=== PATIENT | female | born 1945 | race Caucasian/White ===

== ENCOUNTER 2017-06-19 09:15 | Day surgery (SDC) | payer OTHER ==
[~2017-06-19] VITALS: Ht 160 cm; Wt 59.9 kg
[2017-06-19] MEDS ORDERED: TRAZODONE HCL50 MG PO (09:44)
[2017-06-19] MEDS ORDERED: METOPROLOL SUCC25 MG PO (09:44)
[2017-06-19] MEDS ORDERED: PREMARIN30 GM PV (09:45)
[2017-06-19] MEDS ORDERED: DIPHENOXYLATE-1 EACH PO (09:46)
== END 2017-06-19 11:05 | disposition home or self-care (01) ==
LOC: OPS 09:15 → DS 09:15 → OPS 10:15
PROVIDERS: Ophthalmology
PROC: 08RK3JZ Replacement of Left Lens with Synthetic Substitute, Percutaneous Approach (ICD-10-PCS; principal; 2017-06-19 10:15)
DX: H25.12 Age-related nuclear cataract, left eye (principal); K21.9 Gastro-esophageal reflux disease without esophagitis; M19.90 Unspecified osteoarthritis, unspecified site; Z87.891 Personal history of nicotine dependence; Z79.899 Other long term (current) drug therapy
CPT/HCPCS: 00140; J2250

== ENCOUNTER 2018-11-06 11:59 | Emergency (ER) | payer MEDICARE ==
[~2018-11-06] VITALS: Ht 160 cm; Wt 49.4 kg
--- OUTSIDE RECORDS SUMMARY | ~2018-11-06 | XMS | Encounter Summary ---
Demographics + + + | Address | [address] | | | [place] [address] | + + + | Home Phone | | + + + | Preferred Language | Unknown | + + + | Marital Status | | + + + | Sikh Affiliation | NRP | + + + | Race | White | + + + | Ethnic Group | Not or | + + + Author + + + | Author | [facility] | + + + | Organization | [facility] | + + + | Address | Unknown | + + + | Phone | Unavailable | + + + Support + + + + + | Name | Relationship | Address | Phone | + + + + + | ELSA GOODE | ECON | [address] | | | | | [place] [address] | | + + + + + Care Team Providers + +------+ + | Care Hematology Specialist Name | Role | Phone | + +------+ + | Piotr Plummer MD | PCP | | + +------+ + Reason for Visit + + + | Reason | Comments | + + + | Symptom Management | | + + + Encounter Details +--------+--------+ + + + | Date | Type | Department | Care Team | Description | +--------+--------+ + + + | 09/04/ | Refill | Hematology/Medical | Toni Mccrary, | Symptom Management | | 2019 | | Oncology at [place] | ,PhD [address] | | | | | for Health & Healing | [address] [facility] [place] | | | | | [address] | [address] | | | | | Mailcode: [place] | [phone] | | | | | for Health and | | | | | | Healing, [address] | | | | | | [place], [place] | | | | | | [address] | | | | | | [phone] | | | +--------+--------+ + + + Social History + + [...] | +--------+ + + + + | 11/14/ | Appointment | Hematology & | Moustapha Sher | | | 2019 | | Oncology | [address] | | | | | | [place] [address] | | +--------+ + + + + | 11/14/ | Office | Hematology & | Taz Mcneal, | | | 2018 | Visit | Oncology | PA-C [address] | | | | | | [address] | | | | | | [facility] [place] | | | | | | [address] | | | | | | [phone] | | | | | | | | +--------+ + + + + | 11/14/ | Appointment | Hematology & | B/C, Pod [address] | | | 2019 | | Oncology | [place] | | | | | | [place] [address] | | +--------+ + + + + | 11/28/ | Clinical | | | | | 2018 | Support | | | | | [...] [place] | | | | | | [address] | | | | | | [phone] | | | | | | | | +--------+ + + + + | 11/28/ | Appointment | Hematology & | B/C, Pod [address] | | | 2018 | | Oncology | [place], | | | | | | [place] [address] | | +--------+ + + + + [...] Rd | | | | | | [place], [place] | | | | | | [address] | | | | | | [phone] | | | | | | | | +--------+ + + + + | 12/12/ | Appointment | Hematology & | B/C, Pod [address] | | | 2019 | | Oncology | [place], | | | | | | [place] [address] | | +--------+ + + + + as of this encounter Visit Diagnoses + + | Diagnosis | + + | Pancreatic adenocarcinoma (HCC) - Primary | + + | Malignant neoplasm of pancreas, part unspecified | + + | Liver metastases (HCC) | + + | Secondary malignant neoplasm of liver | + + | Gastroesophageal reflux disease, esophagitis presence not specified | + +"
--- OUTSIDE RECORDS SUMMARY | ~2018-11-06 | XMS | Encounter Summary ---
Demographics + + + | Address | [address] | | | [place] [address] | + + + | Home Phone | | + + + | Preferred Language | Unknown | + + + | Marital Status | | + + + | Congregation Affiliation | NRP | + + + | Race | White | + + + | Ethnic Group | Not or | + + + Author + + + | Author | [facility] | + + + | Organization | [facility] | + + + | Address | Unknown | + + + | Phone | Unavailable | + + + Support + + + + + | Name | Relationship | Address | Phone | + + + + + | ELSA GOODE | ECON | [address] | | | | | [place] [address] | | + + + + + Care Team Providers + +------+ + | Care Roller Operator Name | Role | Phone | + +------+ + | Piotr Plummer MD | PCP | | + +------+ + Reason for Visit + + + | Reason | Comments | + + + | Follow-up visit | | + + + | CME - cystoid | | | macular edema | | + + + Benefits Check (Routine) + +--------+ + + + + | Status | Reason | Specialty | Diagnoses / | Referred By | Referred To | | | | | Procedures | Contact | Contact | + +--------+ + + + + | Authorized | | Ophthalmology | | Non-[facility] | Susana, | | | | | | Epic Dept | MD Nunu | | | | | | | [address] | | | | | | | [address] | | | | | | | [place] | | | | | | | [place], [place] | | | | | | | [address] | | | | | | | Phone: | | | | | | | [phone] | | | | | | | Fax: | | | | | | | [phone] | + +--------+ + + + + Encounter Details +--------+---------+ + + + | Date | Type | Department | Care Team | Description | +--------+---------+ + + + | 09/11/ | Office | [facility] | Nunu Nugent, | Subjective visual | | 2019 | Visit | [facility] | [address] | disturbance (Primary | | | | Jasiel Baker [address] | Dx); Cystoid | | | | [address] | [facility] [place] | macular edema, left | | | | Mailcode: [facility] | [address] | eye | | | | [place], [place] | [phone] | | | | | [address] | | | | | | [phone] | | | +--------+---------+ + + + Social History + + [...] + + + as of this encounter Instructions Patient Instructions - Nunu Nugent MD - 09/11/2018 8:15 AM PSTMigraine Some people experience flashes of light that appear as jagged lines or "heat waves" in both eyes, often lasting 10 to 20 minutes. These types of flashes are usually caused by a spasm of blood vessels in the brain, which is called a migraine. If a headache follows the flashes , it is called a migraine headache. However, jagged lines or heat waves can occur without a headache. In this case, the light flashes are called ophthalmic migraine, or migraine withou t headache. Contact your material dispatcher if you experience these symptoms. in this encounter Progress Notes Wilfrid Cummins MD - 09/11/2018 8:15 AM PSTFormatting of this note may be different from guillermina posadas original. [facility] Progress Note 09/11/2018 72 y.o. female Subjective visual disturbance - 2-week history of peripheral bilateral (occasionally unilaterally) pixelated/scintillatin g perception intermittently. - No evidence of RD/RT on examination - Recent diagnosis and undergoing chemo for Pancreatic Cancer. 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 Chief Complaint: Follow-up visit CME - cystoid macular edema HPI (Edited by physician): Pt. C/o having pixilated crescents peripherally in her vision. The episodes last about 10 minutes. No DE PAZ or H/o migraines. Vision overall seems stable. She was recently diagnosed with pancreatic cancer at the end of last year and currently on chemotherapy. Diagnosed on CT scan 06/2018. Now on week off of chemo between rounds (into 3 weeks). Current Outpatient Prescriptions (Other) Medication Sig acetaminophen Take 500 mg by mouth every six hours as needed. apixaban Take 2 tablets by mouth twice daily for 7 days then take 1 tablet by mouth twi ce daily. docusate sodium Take 1 capsule by mouth two times daily. (Patient taking differently: T adina 100 mg by mouth twice daily as needed. ) Fish Oil-[place]-3 Fatty Acids Take 1 capsule by mouth once daily. ibuprofen Take 400 mg by mouth every six hours as needed. lidocaine-prilocaine Apply a thick layer to intact skin and cover with an occlusive celina ssing. loperamide Take 2 caps initially then 1 cap every 2 hours until diarrhea free for 12 ho urs as needed. LORazepam Take 0.5-1 tablets by mouth every six hours as needed (second line for nausea or for sleep). metoprolol succinate Take 1 tablet (25 mg) by mouth every morning and 2 tablets (50 mg) by mouth every evening multivitamin Take 1 tablet by mouth once daily. nitroglycerin Place under tongue. omeprazole Take 1 capsule by mouth once daily. Administer 30 to 60 minutes before meals oxyCODONE (immediate release) Take 1-3 tablets by mouth every four hours as needed for severe pain. prochlorperazine Take 0.5-1 tablets by mouth every six hours as needed for nausea/vomit ing. Max dose: 40 mg/day traZODone Take 1 tablet by mouth at bedtime as needed Reviewed: Tobacco | Allergies | Meds | Problems | Med Hx | Surg Hx | Fam Hx | Soc Hx Examination: See Ophthalmology Module Attestations: The radiologic technician, under the supervision of the physician, is responsible for performing the f ollowing sections: RFV, ROS, PMH, PSH, SocHx, FH, Med list, Base Ophth Exam. The attending physician is responsible for the entire content of the note and has personall y performed the HPI and the physical examination NUNU NUGENT MD in this encounter Plan of Treatment +--------+ + + + + | Date | Type | Specialty | Care Team | Description | +--------+ + + + + | 11/14/ | Appointment | Hematology & | Rn, Fast Track | | | 2018 | | Oncology | [address] [facility] | | | | | | [place] [address] | | +--------+ + + + + | 11/14/ | Office | Hematology & | Taz Mcneal, | | | 2018 | Visit | Oncology | PA-Cindy [address] | | | | | | [address] | | | | | | [place], [place] | | | | | | [address] | | | | | | [phone] | | | | | | | | +--------+ + + + + | 11/14/ | Appointment | Hematology & | B/C, Pod [address] | | | 2018 | | Oncology | [place], | | | | | | [place] [address] | | +--------+ + + + + | 11/28/ | Clinical | | | | | 2019 | Support | | | | | | Staff | | | | +--------+ + + + + | 11/28/ | Office | Hematology & | Taz Mcneal, | | | 2018 | Visit | Oncology | PA-C [address] | | | | | | [address] | | | | | | [facility] [place] | | | | | | [address] | | | | | | [phone] | | | | | | | | +--------+ + + + + | 11/28/ | Appointment | Hematology & | B/C, Pod [address] | | | 2019 | | Oncology | [place], | | | | | | [place] [address] | | +--------+ + + + + | 12/12/ | Clinical | | | | | 2018 | Support | | | | | | Staff | | | | +--------+ + + + + | 12/12/ | Office | Hematology & | Taz Mcneal, | | | 2018 | Visit | Oncology | [place] [address] | | | | | | [address] | | | | | | [place], [place] | | | | | | [address] | | | | | | [phone] | | | | | | | | +--------+ + + + + | 12/12/ | Appointment | Hematology & | B/C, Pod [address] | | | 2018 | | Oncology | [place], | | | | | | [place] [address] | | +--------+ + + + + as of this encounter Procedures + +--------+ + + + | Procedure Name | Priori | Date/Time | Associated Diagnosis | Comments | | | ty | | | | + +--------+ + + + | OCT, RETINA | Routin | 09/11/2018 | Cystoid macular | Results for this | | | e | 8:27 AM | edema, left eye | procedure are in the | | | | PST | | results section. | + +--------+ + + + in this encounter Results OCT, RETINA (09/11/2018 8:27 AM) + + + | Narrative | Performed At | + + + | Telephoner | [facility] | | DocumentationRight EyeQuality: good Central macular | [facility] | | thickness: 282 Segmentation: accurate Left EyeQuality: | | | good Central macular thickness: 294 Segmentation: accurate | | | Provider DocumentationRight EyeRetinal findings: epiretinal | | | membrane Left EyeRetinal findings: epiretinal membrane | | | NotesOD: increased ERM over fovea, posterior hyaloid off the ERM. No | | | fluid.OS: increased ERM over fovea. Mild irregular inner retinal | | | contour. No fluid. | | |Quality: good | | | | | |Central macular thickness: 294 | | |Segmentation: accurate | | | | | | | | |Provider Documentation | | |Right Eye | | |Retinal findings: epiretinal membrane | | | | | | | | |Left Eye | | |Retinal findings: epiretinal membrane | | | | | | | | |Notes | | |OD: increased ERM over fovea, posterior hyaloid off the ERM. No fluid. | | |OS: increased ERM over fovea. Mild irregular inner retinal contour. No | | |fluid. | | + + + + + + + + | Performing | Address | City/State/Zipcode | Phone Number | | Organization | | | | + + + + + | [facility] | [address] | [place] [address] | | | [facility] | [place]. | | | + + + + + in this encounter Visit Diagnoses + + | Diagnosis | + + | Subjective visual disturbance - Primary | + + | Subjective visual disturbance, unspecified | + + | Cystoid macular edema, left eye | + + | Cystoid macular degeneration of retina | + +
--- OUTSIDE RECORDS SUMMARY | ~2018-11-06 | XMS | Encounter Summary ---
Demographics + + + | Address | [address] | | | [place] [address] | + + + | Home Phone | | + + + | Preferred Language | Unknown | + + + | Marital Status | | + + + | Scientologist Affiliation | NRP | + + + | Race | White | + + + | Ethnic Group | Not or | + + + Author + + + | Author | [facility] | + + + | Organization | [facility] | + + + | Address | Unknown | + + + | Phone | Unavailable | + + + Support + + + + + | Name | Relationship | Address | Phone | + + + + + | ELSA GOODE | ECON | [address] | | | | | [place] [address] | | + + + + + Care Team Providers + +------+ + | Care Clinical Technologist Name | Role | Phone | + +------+ + | Piotr Plummer MD | PCP | | + +------+ + Reason for Visit + + + | Reason | Comments | + + + | Refill Request | apixaban 5 mg | + + + Encounter Details +--------+ + + + + | Date | Type | Department | Care Team | Description | +--------+ + + + + | 10/30/ | Telephone | Hematology/Medical | Toni Mccrary, | Refill Request | | 2019 | | [facility]cology at [place] | ,PhD [address] | (apixaban 5 mg) | | | | for Health & Healing | [address] [place], [place] | | | | | [address] | [address] | | | | | Mailcode: [place] | [phone] | | | | | for Health and | | | | | | Healing, [address] | | | | | | [place], [place] | | | | | | [address] | | | | | | [phone] | | | +--------+ + + + [...] 2019 | | Oncology | [address] | | | | | | [place] [address] | | +--------+ + + + + | 11/14/ | Office | Hematology & | Taz Mcneal, | | | 2018 | Visit | Oncology | PA-C [address] | | | | | | [address] | | | | | | [place], [place] | | | | | | [address] | | | | | | [phone] | | | | | | | | +--------+ + + + + | 11/14/ | Appointment | Hematology & | B/C, Pod [address] | | | 2019 | | Oncology | [place], | | | | | | [place] [address] | | +--------+ + + + + [...] Rd | | | | | | [place] | | | | | | [address] | | | | | | [phone] | | | | | | | | +--------+ + + + + | 11/28/ | Appointment | Hematology & | B/C, [address] | | | 2018 | | Oncology | [place] | | | | | | [place] [address] | | +--------+ + + + + | 12/12/ | Clinical | | | | | 2018 | Support | | | | | | Staff | | | | +--------+ + + + + | 12/12/ | Office | Hematology & | Taz Mcneal, | | | 2019 | Visit | Oncology | [place] [address] | | | | | | [address] | | | | | | [place] | | | | | | [address] | | | | | | [phone] | | | | | | | | +--------+ + + + + | 12/12/ | Appointment | Hematology & | B/C, [address] | | | 2019 | | Oncology | [place], | | | | | | [place] [address] | | +--------+ + + + + as of this encounter Visit Diagnoses Not on filein this encounter"
--- OUTSIDE RECORDS SUMMARY | ~2018-11-06 | XMS | Encounter Summary ---
Demographics + + + | Address | [address] | | | [place] [address] | + + + | Home Phone | | + + + | Preferred Language | Unknown | + + + | Marital Status | | + + + | Episcopalian Affiliation | NRP | + + + | Race | White | + + + | Ethnic Group | Not or | + + + Author + + + | Author | [facility] | + + + | Organization | [facility] | + + + | Address | Unknown | + + + | Phone | Unavailable | + + + Support + + + + + | Name | Relationship | Address | Phone | + + + + + | ELSA GOODE | ECON | [address] | | | | | [place] [address] | | + + + + + Care Team Providers + +------+ + | Care Breaker Table Worker Name | Role | Phone | + +------+ + | Piotr Plummer MD | PCP | | + +------+ + Reason for Visit + + + | Reason | Comments | + + + | Medical nutrition | | | therapy | | + + + Encounter Details +--------+ + + + + | Date | Type | Department | Care Team | Description | +--------+ + + + + | 09/05/ | Documentati | Hematology/Medical | Rosemarie Galan, ISRA | Medical nutrition | | 2019 | on | Oncology at [facility] | [address] | therapy | | | | [address] | [address] | | | | | Mailcode: Center | [place], [place] | | | | | [facility] and | [address] | | | | | Healing, [address] | | | | | | [place], [place] | | | | | | [address] | | | | | | [phone] | | | +--------+ + + + [...] Isra | | | | | | [place] [address] | | +--------+ + + + + | 11/14/ | Office | Hematology & | Taz Mcneal, | | | 2018 | Visit | Oncology | PA-C [address] | | | | | | [address] | | | | | | [place] | | | | | | [address] | | | | | | [phone] | | | | | | | | +--------+ + + + + | 11/14/ | Appointment | Hematology & | B/C, Pod [address] | | | 2019 | | Oncology | [place] | | | | | | [place] [address] | | +--------+ + + + + [...] [place] | | | | | | [address] | | | | | | [phone] | | | | | | | | +--------+ + + + + | 11/28/ | Appointment | Hematology & | B/C, [address] | | | 2018 | | Oncology | [place], | | | | | | [place] [address] | | +--------+ + + + + [...] [place] | | | | | | [address] | | | | | | [phone] | | | | | | | | +--------+ + + + + | 12/12/ | Appointment | Hematology & | B/C, [address] | | | 2019 | | Oncology | [place], | | | | | | [place] [address] | | +--------+ + + + + as of this encounter Visit Diagnoses Not on filein this encounter"
--- OUTSIDE RECORDS SUMMARY | ~2018-11-06 | XMS | Encounter Summary ---
Demographics + + + | Address | [address] | | | [place] [address] | + + + | Home Phone | | + + + | Preferred Language | Unknown | + + + | Marital Status | | + + + | Scientologist Affiliation | NRP | + + + | Race | White | + + + | Ethnic Group | Not or | + + + Author + + + | Author | [facility] | + + + | Organization | [facility] | + + + | Address | Unknown | + + + | Phone | Unavailable | + + + Support + + + + + | Name | Relationship | Address | Phone | + + + + + | ELSA GOODE | ECON | [address] | | | | | [place] [address] | | + + + + + Care Team Providers + +------+ + | Care Agricultural Consultant Name | Role | Phone | + +------+ + | Piotr Plummer MD | PCP | | + +------+ + Reason for Visit + + + | Reason | Comments | + + + | Appointment Question | Bio Stent | + + + Encounter Details +--------+ + + + + | Date | Type | Department | Care Team | Description | +--------+ + + + + | 10/25/ | Telephone | Hematology/Medical | Toni Mccrary, | Appointment Question | | 2019 | | Oncology at [facility] | ,PhD [address] | (Bio Stent ) | | | | [address] | [place], [place] | | | | | Mailcode: [place] | [address] | | | | | for Health and | [phone] | | | | | [facility] [address] | | | | | | [place], [place] | | | | | | [address] | | | | | | [phone] | | | +--------+ + + + [...] | 2019 | | Oncology | [address] | | | | | | [place] [address] | | +--------+ + + + + | 11/14/ | Office | Hematology & | Taz Mcneal, | | | 2018 | Visit | Oncology | PA-C [address] | | | | | | [address] | | | | | | [place] | | | | | | [address] | | | | | | [phone] | | | | | | | | +--------+ + + + + | 11/14/ | Appointment | Hematology & | B/C, [address] | | | 2019 | | Oncology | [place] | | | | | | [place] [address] | | +--------+ + + + + | 11/28/ | Clinical | | | | | 2019 | Support | | | | | | Staff | | | | +--------+ + + + + | 11/28/ | Office | Hematology & | Taz Mcneal, | | | 2018 | Visit | Oncology | PA-Cindy [address] [facility] | | | | | | [address] | | | | | | [place] | | | | | | [address] | | | | | | [phone] | | | | | | | | +--------+ + + + + | 11/28/ | Appointment | Hematology & | B/C, [address] | | | 2018 | | Oncology | [place] | | | | | | [place] [address] | | +--------+ + + + + | 12/12/ | Clinical | | | | | 2018 | Support | | | | | | Staff | | | | +--------+ + + + + | 12/12/ | Office | Hematology & | Taz Mcneal, | | | 2019 | Visit | Oncology | [place] [address] [facility] | | | | | | [address] | | | | | | [place] | | | | | | [address] | | | | | | [phone] | | | | | | | | +--------+ + + + + | 12/12/ | Appointment | Hematology & | B/C, [address] | | | 2019 | | Oncology | [place], | | | | | | [place] [address] | | +--------+ + + + + as of this encounter Visit Diagnoses Not on filein this encounter"
--- OUTSIDE RECORDS SUMMARY | ~2018-11-06 | XMS | Encounter Summary ---
Demographics + + + | Address | [address] | | | [place] [address] | + + + | Home Phone | | + + + | Preferred Language | Unknown | + + + | Marital Status | | + + + | Synagogue Affiliation | NRP | + + + | Race | White | + + + | Ethnic Group | Not or | + + + Author + + + | Author | [facility] | + + + | Organization | [facility] | + + + | Address | Unknown | + + + | Phone | Unavailable | + + + Support + + + + + | Name | Relationship | Address | Phone | + + + + + | ELSA GOODE | ECON | [address] | | | | | [place] [address] | | + + + + + Care Team Providers + +------+ + | Care Mental Retardation Aide Name | Role | Phone | + +------+ + | Piotr Plummer MD | PCP | | + +------+ + Reason for Visit + + + | Reason | Comments | + + + | Patient education | Chacha pereira | + + + Encounter Details +--------+ + + + + | Date | Type | Department | Care Team | Description | +--------+ + + + + | 08/21/ | Documentati | Hematology/Medical | Toni Mccrary, | Patient education | | 2019 | on | Oncology at [place] | ,PhD [address] | (gemcitabine, | | | | for Health & Healing | [address] [place], [place] | Abraxane) | | | | [address] | [address] | | | | | Mailcode: [place] | [phone] | | | | | for Health and | | | | | | Healing, [address] | | | | | | [place], [place] | | | | | | [address] | | | | | | [phone] | | | +--------+ + + + [...] [address] | | | | | | [place] [address] | | +--------+ + + + + | 11/14/ | Office | Hematology & | Taz Mcneal, | | | 2018 | Visit | Oncology | PA-C [address] | | | | | | [address] | | | | | | [place] | | | | | | [address] | | | | | | [phone] | | | | | | | | +--------+ + + + + | 11/14/ | Appointment | Hematology & | B/C, [address] | | | 2019 | | Oncology | [place] | | | | | | [place] [address] | | +--------+ + + + + | 11/28/ | Clinical | | | | | 2019 | Support | | | | | | Staff | | | | +--------+ + + + + | 11/28/ | Office | Hematology & | Taz Mcneal, | | | 2018 | Visit | Oncology | PA-C [address] [facility] | | | | | | [address] | | | | | | [place] | | | | | | [address] | | | | | | [phone] | | | | | | | | +--------+ + + + + | 11/28/ | Appointment | Hematology & | B/C, [address] | | | 2019 | | Oncology | [place] | | | | | | [place] [address] | | +--------+ + + + + | 12/12/ | Clinical | | | | | 2019 | Support | | | | | | Staff | | | | +--------+ + + + + | 12/12/ | Office | Hematology & | Taz Mcneal, | | | 2018 | Visit | Oncology | [place] [address] | | | | | | [address] | | | | | | [place] | | | | | | [address] | | | | | | [phone] | | | | | | | | +--------+ + + + + | 12/12/ | Appointment | Hematology & | B/C, [address] | | | 2018 | | Oncology | [place] | | | | | | [place] [address] | | +--------+ + + + + as of this encounter Visit Diagnoses Not on filein this encounter"
--- OUTSIDE RECORDS SUMMARY | ~2018-11-06 | XMS | Encounter Summary ---
Demographics + + + | Address | [address] | | | [place] [address] | + + + | Home Phone | | + + + | Preferred Language | Unknown | + + + | Marital Status | | + + + | Mormon Affiliation | NRP | + + + | Race | White | + + + | Ethnic Group | Not or | + + + Author + + + | Author | [facility] | + + + | Organization | [facility] | + + + | Address | Unknown | + + + | Phone | Unavailable | + + + Support + + + + + | Name | Relationship | Address | Phone | + + + + + | ELSA GOODE | ECON | [address] | | | | | [place] [address] | | + + + + + Care Team Providers + +------+ + | Care Rrts Name | Role | Phone | + [...] | | 2019 | | [facility] [place] | ,PhD [address] | | | | | for Health & Healing | [address] [facility] [place] | | | | | [address] | [address] | | | | | Mailcode: [place] | [phone] | | | | | for Health and | | | | | | Healing, [address] | | | | | | [place], [place] | | | | | | [address] | | | | | | [phone] | | | +--------+--------+ + + + [...] Isra | | | | | | [place] [address] | | +--------+ + + + + | 11/14/ | Office | Hematology & | Taz Mcneal, | | | 2018 | Visit | Oncology | PA-C [address] | | | | | | [address] | | | | | | [facility] [place] | | | | | | [address] | | | | | | [phone] | | | | | | | | +--------+ + + + + | 11/14/ | Appointment | Hematology & | B/C, Pod [address] | | | 2019 | | Oncology | [place] | | | | | | [place] [address] | | +--------+ + + + + [...] [place] | | | | | | [address] | | | | | | [phone] | | | | | | | | +--------+ + + + + | 11/28/ | Appointment | Hematology & | B/C, [address] | | | 2018 | | Oncology | [place], | | | | | | [place] [address] | | +--------+ + + + + [...] Rd | | | | | | [place], [place] | | | | | | [address] | | | | | | [phone] | | | | | | | | +--------+ + + + + | 12/12/ | Appointment | Hematology & | B/C, [address] | | | 2019 | | Oncology | [place], | | | | | | [place] [address] | | +--------+ + + + + [...]
--- OUTSIDE RECORDS SUMMARY | ~2018-11-06 | XMS | Encounter Summary ---
Demographics + + + | Address | [address] | | | [place] [address] | + + + | Home Phone [...] | | | | | [place] [address] | | + + + + + Care Team Providers + +------+ + | Care Cell Assembly Pinner Name | Role | Phone | + +------+ + | Piotr Plummer MD | PCP | | + +------+ + Encounter Details +--------+ + + + + | Date | Type | Department | Care Team | Description | +--------+ + + + + | 09/25/ | [employer] Architect | Hematology/Medical | Toni Mccrary, | | | 2019 | | [facility] [place] | ,PhD [address] | | | | | for Health & Healing | [place], [place] | | | | | [address] | [address] | | | | | Mailcode: [place] | [phone] | | | | | for Health and | | | | | | Healing, [address] | | | | | | [place], [place] | | | | | | [address] | | | | | | [phone] | | | +--------+ + + + [...] | Rn, Fast Track | | | 2019 | | Oncology | [address] | | | | | | [place] [address] | | +--------+ + + + + | 11/14/ | Office | Hematology & | Taz Mcneal, | | | 2019 | Visit | Oncology | FABIANA-Cindy [address] | | | | | | [address] | | | | | | [facility] [place] | | | | | | [address] | | | | | | [phone] | | | | | | | | +--------+ + + + + | 11/14/ | Appointment | Hematology & | B/C, [address] | | | 2019 | | Oncology | [place], | | | | | | [place] [address] | | +--------+ + + + + | 11/28/ | Clinical | | | | | 2019 | Support | | | | | | Staff | | | | +--------+ + + + + | 11/28/ | Office | Hematology & | Taz Mcneal, | | | 2019 | Visit | Oncology | FABIANA-C [address] | | | | | | [address] | | | | | | [place], [place] | | | | | | [address] | | | | | | [phone] | | | | | | | | +--------+ + + + + | 11/28/ | Appointment | Hematology & | B/C, [address] | | | 2019 | | Oncology | [place], | | | | | | [place] [address] | | +--------+ + + + + | 12/12/ | Clinical | | | | | 2019 | Support | | | | | | Staff | | | | +--------+ + + + + | 12/12/ | Office | Hematology & | Taz Mcneal, | | | 2018 | Visit | Oncology | PA-C [address] [facility] | | | | | | [address] | | | | | | [place], [place] | | | | | | [address] | | | | | | [phone] | | | | | | | | +--------+ + + + + | 12/12/ | Appointment | Hematology & | B/C, [address] | | | 2019 | | Oncology | [place], | | | | | | [place] [address] | | +--------+ + + + + as of this encounter Visit Diagnoses Not on filein this encounter"
--- OUTSIDE RECORDS SUMMARY | ~2018-11-06 | XMS | Encounter Summary ---
Demographics + + + | Address | [address] | | | [place] [address] | + + + | Home Phone | | + + + | Preferred Language | Unknown | + + + | Marital Status | | + + + | Restoration Affiliation | NRP | + + + | Race | White | + + + | Ethnic Group | Not or | + + + Author + + + | Author | [facility] | + + + | Organization | [facility] | + + + | Address | Unknown | + + + | Phone | Unavailable | + + + Support + + + + + | Name | Relationship | Address | Phone | + + + + + | ELSA GOODE | ECON | [address] | | | | | [place] [address] | | + + + + + Care Team Providers + +------+ + | Care Endodontist Name | Role | Phone | + +------+ + | Pitor Plummer MD | PCP | | + +------+ + Encounter Details +--------+ + + + + | Date | Type | Department | Care Team | Description | +--------+ + + + + | 09/25/ | Electrophysiology Nurse Practitioner | Hematology/Medical | Toni Mccrary, | | | 2019 | | [facility] | ,PhD [address] | | | | | for Health & Healing | [place], [place] | | | | | [address] | [address] | | | | | Mailcode: [place] | [phone] | | | | | for Health and | | | | | | Healing, [address] | | | | | | [place], [place] | | | | | | [address] | | | | | | [phone] | | | +--------+ + + + [...] Rd | | | | | | [place] [address] | | +--------+ + + + + | 11/14/ | Office | Hematology & | Taz Mcneal, | | | 2019 | Visit | Oncology | FABIANA-Cindy [address] | | | | | | [address] | | | | | | [facility] [place] | | | | | | [address] | | | | | | [phone] | | | | | | | | +--------+ + + + + | 11/14/ | Appointment | Hematology & | B/C, Pod [address] | | | 2019 | | Oncology | [place], | | | | | | [place] [address] | | +--------+ + + + + [...] [place] | | | | | | [address] | | | | | | [phone] | | | | | | | | +--------+ + + + + | 11/28/ | Appointment | Hematology & | B/C, Pod [address] | | | 2019 | | Oncology | [place], | | | | | | [place] [address] | | +--------+ + + + + | 12/12/ | Clinical | | | | | 2019 | Support | | | | | | Staff | | | | +--------+ + + + + | 12/12/ | Office | Hematology & | Taz Mcneal, | | | 2018 | Visit | Oncology | PA-C [address] [facility] | | | | | | [address] | | | | | | [place], [place] | | | | | | [address] | | | | | | [phone] | | | | | | | | +--------+ + + + + | 12/12/ | Appointment | Hematology & | B/C, Pod [address] | | | 2019 | | Oncology | [place], | | | | | | [place] [address] | | +--------+ + + + + as of this encounter Visit Diagnoses Not on filein this encounter"
--- OUTSIDE RECORDS SUMMARY | ~2018-11-06 | XMS | Encounter Summary ---
Demographics + + + | Address | [address] | | | [place] [address] | + + + | Home Phone | | + + + | Preferred Language | Unknown | + + + | Marital Status | | + + + | Buddhism Affiliation | NRP | + + + [...] [address] | | | | | [place] [address] | | + + + + + Care Team Providers + +------+ + | Care Wood Gluer Name | Role | Phone | + +------+ + | Piotr Plummer MD | PCP | | + +------+ + Reason for Visit AUTH/CERT +--------+--------+ + + + + | Status | Reason | Specialty | Diagnoses / | Referred By | Referred To | | | | | Procedures | Contact | Contact | +--------+--------+ + + + + | | | | | | | +--------+--------+ + + + + Encounter Details +--------+ + + + + | Date | Type | Department | Care Team | Description | +--------+ + + + + | 08/10/ | Anesthesia | 6A Intra Op [facility] | Alida Linares, | | | 2019 | Event | [facility] | AIR BRAKES INSPECTOR [address] [facility] | | | | | Admitting Desk | [facility] | | | | | Located on the | [place], [place] | | | | | floor [address] [place] [address] | [address] | | | | | [facility] | [phone] | | | | | [place], [place] | | | | | | [address] | | | +--------+ + + + + Anesthesia Record + + + + + | Procedure Name | Responsible | Anesthesia Start | Anesthesia Stop Time | | | Anesthesiologist | Time | | + + + + + | DIAGNOSTIC | Pete Bolivar MD | 08/10/18 1223 | 08/10/18 1454 | | LAPAROSCOPY WITH | | | | | BIOPSY (N/A Abdomen) | | | | + + + + + +----+---+ + + | Da | T | Event | Comment | | te | i | | | | | m | | | | | e | | | +----+---+ + + | 01 | 1 | Eq Check | Anesthesia machine checked Equipment verified | | /2 | 2 | | | | 5/ | 0 | | | | 20 | 2 | | | | 19 | | | | +----+---+ + + | | 1 | An Start | | | | 2 | | | | | 2 | | | | | 3 | | | +----+---+ + + | | 1 | An Start | | | | 2 | Data | | | | 2 | | | | | 8 | | | +----+---+ + + | | 1 | Vitals | Monitors applied Vital signs checked Patient ready for anesthesia | | | 2 | Checked | | | | 3 | | | | | 4 | | | +----+---+ + + | | 1 | ETT | | | | 2 | | | | | 4 | | | | | 1 | | | +----+---+ + + | | 1 | Abx | | | | 2 | Administere | | | | 5 | d | | | | 8 | | | +----+---+ + + | | 1 | Ready | | | | 3 | | | | | 0 | | | | | 3 | | | +----+---+ + + | | 1 | Pause | | | | 3 | | | | | 1 | | | | | 1 | | | +----+---+ + + | | 1 | Incision | | | | 3 | | | | | 1 | | | | | 7 | | | +----+---+ + + | | 1 | Quick Note | Insufflation at this time. | | | 3 | | | | | 5 | | | | | 6 | | | +----+---+ + + | | 1 | Surgery end | | | | 4 | | | | | 2 | | | | | 8 | | | +----+---+ + + | | 1 | An Extubate | Neuromuscular function Intact. Pharynx suctioned. Patient obeys | | | 4 | | commands. Adequate pulmonary mechanics. | | | 4 | | | | | 2 | | | +----+---+ + + | | 1 | O2 by FM | | | | 4 | | | | | 4 | | | | | 3 | | | +----+---+ + + | | 1 | an stop | | | | 4 | data | | | | 4 | | | | | 4 | | | +----+---+ + + | | 1 | PACU Rpt | | | | 4 | Given | | | | 5 | | | | | 4 | | | +----+---+ + + | | 1 | Anesthesia | | | | 4 | End | | | | 5 | | | | | 4 | | | +----+---+ + + +------+ | Meds | +------+ + + + | Name | Total | + + + | midazolam | 2 mg | + + + | fentaNYL | 200 mcg | + + + | lidocaine 2% | 60 mg | + + + | propofol (DIPRIVAN) 200 mg | 100 mg | + + + | rocuronium | 55 mg | + + + | glycopyrrolate | 0.6 mcg | + + + | neostigmine | 3 mg | + + + | dexamethasone | 8 mg | + + + | ondansetron | 4 mg | + + + | ceFAZolin (ANCEF) injection 2 g | 2 g | + + + | PHENYLEPHrine | 500 mcg | + + + | labetalol | 10 mg | + + + | lactated Ringers IV | 1,200 mL | + + + + + | Name | + + | O2 FR Avance (Total Liters) | + + | Air FR Avance (l/min) | + + | Insp Sevo | + + | Et Sevo | + + | Insp N2O % | + + | O2 Flow Rate (Total Liters) | + + | Air Flow rate (L/min) | + + + + | No blood administrations on file. | + + +--------+ + + + | Type | Details | Placement | Removal | +--------+ + + + | Incisi | 08/10/18; MD Howard; Right; chest | 08/10/18 0000 by | | | on | | Bon Niño RN | | +--------+ + + + | Incisi | 08/10/18; MD Howard; Right; neck | 08/10/18 0000 by | | | on | | Bon Niño RN | | +--------+ + + + | Incisi | 08/10/18; MD Howard; umbilical area | 08/10/18 0000 by | | | on | | Bon Niño RN | | +--------+ + + + | PA | 08/10/18; MD Howard; Right; Chest; | 08/10/18 0000 by | 08/28/18 0859 by Guido | | Cathet | 7.5 Fr.; [id number]; 08/28/18; 0859; | Bon Niño RN | RT Marcell | | er - | Per protocol | | | | Single | | | | | | | | | | Infusi | | | | | on | | | | | Port | | | | +--------+ + + + | Incisi | 08/10/18; MD Howard; Midline, | 08/10/18 0000 by | 08/22/18 1303 by | | on | Upper; abdomen; 08/22/18; 1303 | Bon Niño RN | Mary August RN | +--------+ + + + | Incisi | 08/10/18; MD Howard; Right; | 08/10/18 0000 by | 08/22/18 1303 by | | on | abdomen; 08/22/18; 1303 | Bon Niño RN | Mary August RN | +--------+ + + + | Periph | 08/10/18; 1223; Left; Hand; 20 g; | 08/10/18 1223 by | 08/10/18 1805 by | | eral | Lidocaine; Positive; 08/10/18; | Arnav Ornelas RN | Shahid Castillo, | | IV | 1805; Discharge | | RN | +--------+ + + + | ETT | 08/10/18; 1250 (created via | 08/10/18 1250 by | 08/10/18 1442 by | | | procedure documentation); | Alida Linares CRNA | Alida Linares CRNA | | | Endotracheal Tube; 6.5; Oral; | | | | | Cuffed; 08/10/18; 1442 | | | +--------+ + + + | Periph | 08/10/18; 1255; alida linares wireless development manager; | 08/10/18 1255 by | 08/10/18 180 by | | tamikal | Right; Hand; 18 g; No; Other | Alida Linares CRNA | Shahid Castillo, | | IV | (comment) (general anesthesia); | | RN | | | No; Positive; 08/10/18; 180; | | | | | Discharge | | | +--------+ + + + in this encounter Social History + + + +--------+ + [...] [address] | | | | | | [place] [address] | | +--------+ + + + + | 11/14/ | Office | Hematology & | Taz Mcneal, | | | 2018 | Visit | Oncology | PA-C [address] | | | | | | [address] | | | | | | [place], [place] | | | | | | [address] | | | | | | [phone] | | | | | | | | +--------+ + + + + | 11/14/ | Appointment | Hematology & | B/C, Pod [address] | | | 2019 | | Oncology | [place] | | | | | | [place] [address] | | +--------+ + + + + [...] Rd | | | | | | [place] | | | | | | [address] | | | | | | [phone] | | | | | | | | +--------+ + + + + | 11/28/ | Appointment | Hematology & | B/C, Pod [address] | | | 2018 | | Oncology | [place] | | | | | | [place] [address] | | +--------+ + + + + | 12/12/ | Clinical | | | | | 2018 | Support | | | | | | Staff | | | | +--------+ + + + + | 12/12/ | Office | Hematology & | Taz Mcneal, | | | 2019 | Visit | Oncology | PA-C [address] | | | | | | [address] | | | | | | [place], [place] | | | | | | [address] | | | | | | [phone] | | | | | | | | +--------+ + + + + | 12/12/ | Appointment | Hematology & | B/C, Pod [address] | | | 2018 | | Oncology | [place], | | | | | | [place] [address] | | +--------+ + + + + as of this encounter Results FARZANA MCGILL (08/10/2018 1:42 PM) + + + | Narrative | Performed At | + + + | Alida Linares CRNA 08/10/2018 1:52 PM Procedure Reason | | | for Intubation: For surgical procedure, Location Performed: [place] , | | | Patient was preoxygenated Mask Ventilation Grade 1 - Ventilated by | | | mask Intubation Blade type: Faith , Blade size: 3, Atraumatic | | | laryngoscopy: Atraumatic Laryngoscopy, Intubation adjuncts: w/ | | | Bougie and Stylet used , Laryngoscopic view: Grade II, Fiberoptics | | | used: Glidescope , Number of Attempts: > 4, Positive for EtCO2: Yes, | | | Breath sounds: Bilateral and equal ETT ETT Size: 6.5 | | | ETT secured with: adhesive tape Depth at Lip: 21 Cm Airway | | | leak: No Narrative Attending: PETE BOLIVAR Pt with | | | hypoagnathia. Smooth IV induction, easy mask ventilation. DVL | | | with MAC 3 blade gave a aimee view of the epiglottis, but no cords or | | | arytenoids, grade 4 view. So the blade was exchanged for a Faith 2 | | | blade. I still had the same grade 4 view on my second direct | | | laryngoscopy. Dr. Bolivar took over and gave a look, the third DVL | | | and felt she could see arytenoids. She then bagged ventilated | | | while I prepared the bougie for her, also calling for a glidescope | | | at the same time. The 4th laryngoscopy was with Faith 4 blade | | | by Dr. Bolivar and was reported as a grade 3 view of the arytenoids, | | | a bougie was passed and the ETT was threaded over the bougie. No | | | breath sounds or ET CO2 noted. The ETT was immediately removed and | | | the patient was ventilated by Dr. Bolivar while I prepared the [facility] | | | [facility] endoscope. Dr Bolivar proceeded with the fifth and final | | | attempt, there was a grade 2 view, the styletted ETT threaded easily | | | through the vocal cords, which were noted to be very anterior. The | | | stylet was definitely necessary to reach the position of the cords. | | | Position verified and ETT secured. No trauma to teeth, lips or | | | soft tissues noted. Performed by ALIDA MCCORMICK | | + + + in this encounter Visit Diagnoses Not on filein this encounter Administered Medications + +--------+ +------+------+------+ | Medication Order | MAR | Action | Dose | Rate | Site | | | Action | Date | | | | + +--------+ +------+------+------+ | ceFAZolin (ANCEF) injection 2 g | Given | | 2 g | | | | 2 g, intravenous, PREPROCEDURE | | 9 12:58 | | | | | ONCE, 1 dose, Starting Fri | | PST | | | | | 08/10/18 at 1109, Until | | | | | | | Discontinued | | | | | | + +--------+ +------+------+------+ +---+---+ | | | +---+---+ + +-------+ +------+---+---+ | dexamethasone (DECADRON) | Given | | 8 mg | | | | injection intravenous, | | 9 13:07 | | | | | INTRAPROCEDURE PRN, Starting Fri | | PST | | | | | 08/10/18 at 1307, Until Fri | | | | | | | 08/10/18 at 1444 | | | | | | + +-------+ +------+---+---+ +---+---+ | | | +---+---+ + +-------+ +---------+---+---+ | fentaNYL (SUBLIMAZE) injection | Given | | 100 mcg | | | | intravenous, INTRAPROCEDURE PRN, | | 9 12:32 | | | | | Starting 08/10/18 at 1232, | | PST | | | | | Until 08/10/18 at 1444 | | | | | | + +-------+ +---------+---+---+ +-------+ +--------+---+---+ | Given | | 50 mcg | | | | | 9 13:50 | | | | | | PST | | | | +-------+ +--------+---+---+ | Given | | 50 mcg | | | | | 9 14:19 | | | | | | PST | | | | +-------+ +--------+---+---+ +---+---+ | | | +---+---+ + +-------+ +---------+---+---+ | glycopyrrolate (ROBINUL) | Given | | 0.6 mcg | | | | injection INTRAPROCEDURE PRN, | | 9 14:26 | | | | | Starting 08/10/18 at 1426, | | PST | | | | | Until 08/10/18 at 1444 | | | | | | + +-------+ +---------+---+---+ +---+---+ | | | +---+---+ + +-------+ +-------+---+---+ | labetalol (TRANDATE) IV | Given | | 10 mg | | | | injection intravenous, | | 9 13:55 | | | | | INTRAPROCEDURE PRN, Starting Fri | | PST | | | | | 08/10/18 at 1355, Until Fri | | | | | | | 08/10/18 at 1444 | | | | | | + +-------+ +-------+---+---+ +---+---+ | | | +---+---+ + +---------+ +---+---+---+ | lactated Ringers IV 10 mL/hr, | New Bag | | | | | | intravenous, PROCEDURE | | 9 12:03 | | | | | CONTINUOUS, Starting 08/10/18 | | PST | | | | | at 1115, Until 08/11/18 at | | | | | | | 0016 | | | | | | + +---------+ +---+---+---+ + + +---+---+---+ | New Bag | | | | | | | 9 14:26 | | | | | | PST | | | | + + +---+---+---+ | given by anesthesiology | | | | | | | 9 14:54 | | | | | | PST | | | | + + +---+---+---+ +---+---+ | | | +---+---+ + +-------+ +-------+---+---+ | lidocaine PF (XYLOCAINE MPF) 20 | Given | | 60 mg | | | | mg/mL (2 %) injection | | 9 12:40 | | | | | INTRAPROCEDURE PRN, Starting Fri | | PST | | | | | 08/10/18 at 1240, Until Fri | | | | | | | 08/10/18 at 1444 | | | | | | + +-------+ +-------+---+---+ +---+---+ | | | +---+---+ + +-------+ +------+---+---+ | midazolam (PF) (VERSED) | Given | | 2 mg | | | | injection INTRAPROCEDURE PRN, | | 9 12:23 | | | | | Starting 08/10/18 at 1223, | | PST | | | | | Until 08/10/18 at 1444 | | | | | | + +-------+ +------+---+---+ +---+---+ | | | +---+---+ + +-------+ +------+---+---+ | neostigmine (PROSTIGMIN) | Given | | 3 mg | | | | injection intravenous, | | 9 14:26 | | | | | INTRAPROCEDURE PRN, Starting Fri | | PST | | | | | 08/10/18 at 1426, Until Fri | | | | | | | 08/10/18 at 1444 | | | | | | + +-------+ +------+---+---+ +---+---+ | | | +---+---+ + +-------+ +------+---+---+ | ondansetron (ZOFRAN) injection | Given | | 4 mg | | | | INTRAPROCEDURE PRN, Starting Fri | | 9 14:19 | | | | | 08/10/18 at 1419, Until Fri | | PST | | | | | 08/10/18 at 1444 | | | | | | + +-------+ +------+---+---+ +---+---+ | | | +---+---+ + +-------+ +---------+---+---+ | PHENYLEPHrine 100 mcg/mL IV | Given | | 100 mcg | | | | syringe INTRAPROCEDURE PRN, | | 9 12:54 | | | | | Starting 08/10/18 at 1308, | | PST | | | | | Until 08/10/18 at 1444 | | | | | | + +-------+ +---------+---+---+ +-------+ +---------+---+---+ | Given | | 100 mcg | | | | | 9 13:06 | | | | | | PST | | | | +-------+ +---------+---+---+ | Given | | 100 mcg | | | | | 9 13:09 | | | | | | PST | | | | +-------+ +---------+---+---+ +---+---+ | | | +---+---+ + +---------+ +--------+---+---+ | propofol (DIPRIVAN) 200 mg | New Bag | | 100 mg | | | | INTRAPROCEDURE CONTINUOUS PRN, | | 9 12:40 | | | | | Starting 08/10/18 at 1240, | | PST | | | | | Until Mon08/10/18 at 1444 | | | | | | + +---------+ +--------+---+---+ +---+---+ | | | +---+---+ + +-------+ +-------+---+---+ | rocuronium (ZEMURON) injection | Given | | 50 mg | | | | intravenous, INTRAPROCEDURE PRN, | | 9 12:40 | | | | | Starting 08/10/18 at 1240, | | PST | | | | | Until Mon08/10/18 at 1444 | | | | | | + +-------+ +-------+---+---+ +-------+ +------+---+---+ | Given | 1/25/201 | 5 mg | | | | | 9 14:19 | | | | | | PST | | | | +-------+ +------+---+---+ +---+---+ | | | +---+---+ in this encounter"
--- OUTSIDE RECORDS SUMMARY | ~2018-11-06 | XMS | Encounter Summary ---
Demographics + + + | Address | [address] | | | [place] [address] | + + + | Home Phone | | + + + | Preferred Language | Unknown | + + + | Marital Status | | + + + | Yazidism Affiliation | NRP | + + + [...] | | | | | [place] [address] | | + + + + + Care Team Providers + +------+ + | Care Health Plan Advisor Name | Role | Phone | + +------+ + | Piotr Pulmmer MD | PCP | | + +------+ + Reason for Visit + + + | Reason | Comments | + + + | Follow-up encounter | | + + + Encounter Details +--------+ + + + + | Date | Type | Department | Care Team | Description | +--------+ + + + + | 08/24/ | Telephone | [facility] | Martin Carrero, | Follow-up encounter | | 2019 | | [facility] [address] | [address] | | | | | [address] | [address] | | | | | Mailcode: Center | [place], [place] | | | | | [facility] and | [address] | | | | | [facility], [facility] | [phone] | | | | | [place], [place] | | | | | | [address] | | | | | | [phone] | | | +--------+ + + + + Social History + + + +--------+ + | Tobacco Use | Types | Packs/Day | Years | Date | | | | | Used | | + + + +--------+ + | Former Smoker | Cigarettes | 20 | 8 | Quit: 1981 | + + + +--------+ + + [...] & | Moustapha Sher | | | 2018 | | Oncology | [address] | | | | | | [place] [address] | | +--------+ + + + + | 11/14/ | Office | Hematology & | Taz Mcneal, | | | 2018 | Visit | Oncology | PA-C [address] | | | | | | [address] | | | | | | [place] | | | | | | [address] | | | | | | [phone] | | | | | | | | +--------+ + + + + | 11/14/ | Appointment | Hematology & | B/C[address] | | | 2019 | | Oncology | [place] | | | | | | [place] [address] | | +--------+ + + + + | 11/28/ | Clinical | | | | | 2019 | Support | | | | | | Staff | | | | +--------+ + + + + | 11/28/ | Office | Hematology & | Taz Mcneal, | | | 2018 | Visit | Oncology | [facility] [address] | | | | | | [address] | | | | | | [place] | | | | | | [address] | | | | | | [phone] | | | | | | | | +--------+ + + + + | 11/28/ | Appointment | Hematology & | B/C, [address] | | | 2018 | | Oncology | [place], | | | | | | [place] [address] | | +--------+ + + + + | 12/12/ | Clinical | | | | | 2019 | Support | | | | | | Staff | | | | +--------+ + + + + | 12/12/ | Office | Hematology & | Taz Mcneal, | | | 2018 | Visit | Oncology | [facility] [address] [facility] | | | | | | [address] | | | | | | [place], [place] | | | | | | [address] | | | | | | [phone] | | | | | | | | +--------+ + + + + | 12/12/ | Appointment | Hematology & | B/C[address] | | | 2019 | | Oncology | [place], | | | | | | [place] [address] | | +--------+ + + + + as of this encounter Visit Diagnoses Not on filein this encounter"
--- OUTSIDE RECORDS SUMMARY | ~2018-11-06 | XMS | Encounter Summary ---
Demographics + + + | Address | [address] | | | [place] [address] | + + + | Home Phone [...] + + + | Author | [facility] | + + + | Organization | [facility] | + + + | Address | Unknown | + + + | Phone | Unavailable | + + + Support + + + + + | Name | Relationship | Address | Phone | + + + + + | ELSA GOODE | ECON | [address] | | | | | [place] [address] | | + + + + + Care Team Providers + +------+ + | Care Money Manager Name | Role | Phone | + +------+ + | Piotr Plummer MD | PCP | | + +------+ + Reason for Referral Diagnostic Testing (Routine) + +--------+ + + + + | Status | Reason | Specialty | Diagnoses / | Referred By | Referred To | | | | | Procedures | Contact | Contact | + +--------+ + + + + | New Request | | Radiology | Diagnoses | Hermann, | | | | | | Pancreatic | Toni | | | | | | adenocarcino | ,PhD 0213 | | | | | | makeda ([facility]) | [address] | | | | | | Procedures | [place], | | | | | | CT CHEST, | [place] | | | | | | ABDOMEN AND | [address] | | | | | | PELVIS W IV | Phone: | | | | | | CONTRAST | [phone] | | | | | | | Fax: | | | | | | | [phone] | | + +--------+ + + + + Reason for Visit + + + | Reason | Comments | + + + | Research Study | | + + + Encounter Details +--------+ + + + + | Date | Type | Department | Care Team | Description | +--------+ + + + + | 08/09/ | Telephone | Hematology | Toni Mccrary, | Research Study | | 2019 | | Oncology Study 3302 | ,PhD [address] | | | | | [address] | [place], [place] | | | | | Mailcode: CH7 | [id number] | | | | | [facility] | [phone] | | | | | and Healing, 7th | | | | | | Floor [place], [place] | | | | | | [address] | | | | | | [phone] | | | +--------+ + + + [...] Rd | | | | | | [place] [address] | | +--------+ + + + + | 11/14/ | Office | Hematology & | Taz Mcneal, | | | 2018 | Visit | Oncology | O[facility] [address] | | | | | | [address] | | | | | | [place] | | | | | | [address] | | | | | | [phone] | | | | | | | | +--------+ + + + + | 11/14/ | Appointment | Hematology & | B/C, [address] | | | 2019 | | Oncology | [place], | | | | | | [place] [address] | | +--------+ + + + + [...] Rd | | | | | | [place] | | | | | | [address] | | | | | | [phone] | | | | | | | | +--------+ + + + + | 11/28/ | Appointment | Hematology & | B/C, [address] | | | 2018 | | Oncology | [place], | | | | | | [place] [address] | | +--------+ + + + + | 12/12/ | Clinical | | | | | 2018 | Support | | | | | | Staff | | | | +--------+ + + + + | 12/12/ | Office | Hematology & | Taz Mcneal, | | | 2018 | Visit | Oncology | [facility] [address] | | | | | | [address] | | | | | | [place], [place] | | | | | | [address] | | | | | | [phone] | | | | | | | | +--------+ + + + + | 12/12/ | Appointment | Hematology & | B/C, [address] | | | 2019 | | Oncology | [place], | | | | | | [place] [address] | | +--------+ + + + + + +--------+ + + | Name | Priori | Associated Diagnoses | Order Schedule | | | ty | | | + +--------+ + + | CT CHEST, ABDOMEN AND PELVIS W IV | Routin | Pancreatic | Expected: | | CONTRAST | e | adenocarcinoma (HCC) | 08/13/2018, Expires: | | | | | 09/09/2019 | + +--------+ + + as of this encounter Visit Diagnoses + + | Diagnosis | + + | Pancreatic adenocarcinoma (HCC) - Primary | + + | Malignant neoplasm of pancreas, part unspecified | + +"
--- OUTSIDE RECORDS SUMMARY | ~2018-11-06 | XMS | Encounter Summary ---
Demographics + + + | Address | [address] | | | [place] [address] | + + + | Home Phone | | + + + | Preferred Language | Unknown | + + + | Marital Status | | + + + | Baptism Affiliation | NRP | + + + [...] | | | | | [place] [address] | | + + + + + Care Team Providers + +------+ + | Care Crab Meat Processor Name | Role | Phone | + +------+ + | Piotr Plummer MD | PCP | | + +------+ + Encounter Details +--------+ + + + + | Date | Type | Department | Care Team | Description | +--------+ + + + + | 10/18/ | Cio | Hematology/Medical | Toni Mccrary, | | | 2019 | | [facility] | ,PhD [address] | | | | | [facility] | [place], [place] | | | | | [address] | [address] | | | | | Mailcode: [place] | [phone] | | | | | for Health and | | | | | | Healing, [address] | | | | | | [place], [place] | | | | | | [address] | | | | | | [phone] | | | +--------+ + + + [...] Rd | | | | | | [place] [address] | | +--------+ + + + + | 11/14/ | Office | Hematology & | Taz Mcneal, | | | 2019 | Visit | Oncology | [facility] [address] | | | | | | [address] | | | | | | [facility] [place] | | | | | | [address] | | | | | | [phone] | | | | | | | | +--------+ + + + + | 11/14/ | Appointment | Hematology & | B/C, [address] | | | 2019 | | Oncology | [place], | | | | | | [place] [address] | | +--------+ + + + + [...] [place] | | | | | | [address] | | | | | | [phone] | | | | | | | | +--------+ + + + + | 11/28/ | Appointment | Hematology & | B/C, [address] | | | 2019 | | Oncology | [place], | | | | | | [place] [address] | | +--------+ + + + + | 12/12/ | Clinical | | | | | 2019 | Support | | | | | | Staff | | | | +--------+ + + + + | 12/12/ | Office | Hematology & | Taz Mcneal, | | | 2018 | Visit | Oncology | PA-C [address] [facility] | | | | | | [address] | | | | | | [place], [place] | | | | | | [address] | | | | | | [phone] | | | | | | | | +--------+ + + + + | 12/12/ | Appointment | Hematology & | B/C, [address] | | | 2019 | | Oncology | [place], | | | | | | [place] [address] | | +--------+ + + + + as of this encounter Visit Diagnoses Not on filein this encounter"
--- OUTSIDE RECORDS SUMMARY | ~2018-11-06 | XMS | Encounter Summary ---
Demographics + + + | Address | [address] | | | [place] [address] | + + + | Home Phone | | + + + | Preferred Language | Unknown | + + + | Marital Status | | + + + | Religion Affiliation | NRP | + + + | Race | White | + + + | Ethnic Group | Not or | + + + Author + + + | Author | [facility] | + + + | Organization | [facility] | + + + | Address | Unknown | + + + | Phone | Unavailable | + + + Support + + + + + | Name | Relationship | Address | Phone | + + + + + | ELSA GOODE | ECON | [address] | | | | | [place] [address] | | + + + + + Care Team Providers + +------+ + | Care Circ[facility] Hand Name | Role | Phone | + +------+ + | Steffi Barraza MD | PCP | | + +------+ + Reason for Visit + + + | Reason | Comments | + + + | Diarrhea | | + + + Encounter Details +--------+ + + + + | Date | Type | Department | Care Team | Description | +--------+ + + + + | 10/01/ | Emergency | [facility] | Kwan Mishra, | | | 2019 | | Department [address] | [address] | | | | | [address] | [facility] | | | | | [facility] | [place], [place] | | | | | [place] [address] | [address] | | | | | [phone] | [phone] | | | | | | | [...] + + + as of this encounter Last Filed Vital Signs + + + + | Vital Sign | Reading | Time Taken | + + + + | Blood Pressure | 155/79 | 10/01/2018 5:28 PM PDT | + + + + | Pulse | 101 | 10/01/2018 5:28 PM PDT | + + + + | Temperature | 37.2 C (99 F) | 10/01/2018 5:28 PM PDT | + + + + | Respiratory Rate | 16 | 10/01/2018 5:28 PM PDT | + + + + | Oxygen Saturation | 97% | 10/01/2018 5:28 PM PDT | + + + + | Inhaled Oxygen | - | - | | Concentration | | | + + + + | Weight | 53 kg (116 lb 12.8 | 10/01/2018 5:27 PM PDT | | | oz) | | + + + + | Height | 160 cm (5' 3") | 10/01/2018 5:27 PM PDT | + + + + | Body Mass Index | 20.69 | 10/01/2018 5:27 PM PDT | + + + + in this encounter Discharge Instructions Cheyenne Reis MD - 10/01/2018Eriberto Goode, Thank you for coming to the [facility] Em ergency Department. It was a pleasure taking care of you. You were seen in the emergency department for diarrhea. It is okay to take Imodium, but do not take more than instructed to as on the package insertion. To further identify any potential underlying cause of your symptoms and review your health management plan, we strongly recommend you make a follow up appointment with your primary ca re doctor within the next 2-3 days. Please return to the emergency department immediately if you have continuing symptoms, wors ening symptoms, fevers, or any other symptoms that are acutely concerning. At the time of discharge, these instructions were discussed with you, any questions you had were answered, and you attested that you fully understood these instructions and the plan f or management of your health concerns. The following attachments cannot be sent through Care Everywhere.Cancer: Diarrhea (Belarusian) in this encounter Medications at Time of Discharge + + +---------+---------+ + + | Medication | Sig. | Disp. | Refills | Start | End Date | | | | | | Date | | + + +---------+---------+ + + | acetaminophen 500 | Take 500 mg by mouth | | | | | | mg oral tablet | every six hours as | | | | | | | needed. | | | | | + + +---------+---------+ + + | docusate sodium | Take 1 capsule by | | | 08/10/19 | | | (COLACE) 100 mg oral | mouth two times | | | 19 | | | capsule | daily. | | | | | + + +---------+---------+ + + | ibuprofen 200 mg | Take 400 mg by mouth | | | | | | oral tablet | every six hours as | | | | | | | needed. | | | | | + + +---------+---------+ + + | | Apply a thick layer | 30 g | 7 | 08/22/19 | | | lidocaine-prilocaine | to intact skin and | | | 19 | | | 2.5-2.5 % topical | cover with an | | | | | | creamIndications: | occlusive dressing. | | | | | | Pancreatic | | | | | | | adenocarcinoma (HCC) | | | | | | + + +---------+---------+ + + | | Take 2 capsules with | 240 | 1 | 09/13/19 | | | reaqxx-sphubxoj-doui | meals and 1 | capsule | | 19 | | | ase (CREON) | capsules with | | | | | | 24,000-76,000 | snacks. Swallow, do | | | | | | -120,000 unit oral | not crush or chew. | | | | | | capsule,delayed | Always take with | | | | | | release(DR/EC)Indica | food. Max: 8/day | | | | | | tions: Pancreatic | | | | | | | adenocarcinoma | | | | | | | (HCC), Liver | | | | | | | metastases (HCC), | | | | | | | Postprandial | | | | | | | abdominal bloating | | | | | | + + +---------+---------+ + + | loperamide 2 mg | Take 2 caps | 30 | 5 | 08/22/19 | | | oral | initially then 1 cap | capsule | | 19 | | | capsuleIndications: | every 2 hours until | | | | | | Pancreatic | diarrhea free for | | | | | | adenocarcinoma (HCC) | 12 hours as needed. | | | | | + + +---------+---------+ + + | LORazepam 1 mg | Take 0.5-1 tablets | 30 | 5 | 08/22/19 | | | oral | by mouth every six | tablet | | 19 | | | tabletIndications: | hours as needed | | | | | | Pancreatic | (second line for | | | | | | adenocarcinoma (HCC) | nausea or for | | | | | | | sleep). 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 | | | 08/08/19 | | | mcg/spray | | | | 18 | | | translingual | | | | | | | spray,non-aerosolInd | | | | | | | ications: Cystoid | | | | | | | macular edema, left | | | | | | | eye | | | | | | + + +---------+---------+ + + | omeprazole 40 mg | Take 1 capsule by | 30 | 9 | 09/04/19 | | | oral capsule,delayed | mouth once daily. | capsule | | 19 | | | | Administer 30 to 60 | | | | | | release(DR/EC)Indica | minutes before meals | | | | | | tions: Pancreatic | | | | | | | adenocarcinoma | | | | | | | (HCC), Liver | | | | | | | metastases (HCC), | | | | | | | Gastroesophageal | | | | | | | reflux disease, | | | | | | | esophagitis presence | | | | | | | not specified | | | | | | + + +---------+---------+ + + | prochlorperazine | Take 0.5-1 tablets | 60 | 5 | 08/22/19 | | | 10 mg oral | by mouth every six | tablet | | 19 | | | tabletIndications: | hours as needed for | | | | | | Pancreatic | nausea/vomiting. 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, left eye | | | | | | + + +---------+---------+ + + as of this encounter Plan of Treatment +--------+ + + + + | Date | Type | Specialty | Care Team | Description | +--------+ + + + + | 11/14/ | Appointment | Hematology & | Moustapha Sher | | | 2019 | | Oncology | [address] | | | | | | [place] [address] | | +--------+ + + + + | 11/14/ | Office | Hematology & | Taz Mcneal, | | | 2018 | Visit | Oncology | PA-C [address] | | | | | | [address] | | | | | | [place] | | | | | | [address] | | | | | | [phone] | | | | | | | | +--------+ + + + + | 11/14/ | Appointment | Hematology & | B/C, [address] | | | 2019 | | Oncology | [place] | | | | | | [place] [address] | | +--------+ + + + + | 11/28/ | Clinical | | | | | 2018 | Support | | | | | | Staff | | | | +--------+ + + + + | 11/28/ | Office | Hematology & | Taz Mcneal, | | | 2018 | Visit | Oncology | PA-C [address] | | | | | | [address] | | | | | | [place] | | | | | | [address] | | | | | | [phone] | | | | | | | | +--------+ + + + + | 11/28/ | Appointment | Hematology & | B/C, [address] | | | 2019 | | Oncology | [place] | | | | | | [place] [address] | | +--------+ + + + + | 12/12/ | Clinical | | | | | 2018 | Support | | | | | | Staff | | | | +--------+ + + + + | 12/12/ | Office | Hematology & | Taz Mcneal, | | | 2018 | Visit | Oncology | PA-C [address] [facility] | | | | | | [address] | | | | | | [place] | | | | | | [address] | | | | | | [phone] | | | | | | | | +--------+ + + + + | 12/12/ | Appointment | Hematology & | B/C, [address] | | | 2018 | | Oncology | [place], | | | | | | [place] [address] | | +--------+ + + + + as of this encounter Procedures + +--------+ + + + | Procedure Name | Priori | Date/Time | Associated Diagnosis | Comments | | | ty | | | | + +--------+ + + + | C. DIFFICILE TOXIN, | Urgent | 10/01/2018 | | Results for this | | W/REFLEX | | 5:38 PM | | procedure are in the | | CONFIRMATION IF | | PDT | | results section. | | INDETERMINATE | | | | | | RESULTS | | | | | + +--------+ + + + | RAINBOW HOLD TUBE - | Urgent | 10/01/2018 | | | | BLUE TOP | | 5:36 PM | | | | | | PDT | | | + +--------+ + + + | CBC AND AUTO DIFF | Urgent | 10/01/2018 | | Results for this | | | | 5:36 PM | | procedure are in the | | | | PDT | | results section. | + +--------+ + + + | RAINBOW HOLD, CORE | Urgent | 10/01/2018 | | Results for this | | PANEL | | 5:36 PM | | procedure are in the | | | | PDT | | results section. | + +--------+ + + + | CBC, WITH | Urgent | 10/01/2018 | | Results for this | | DIFFERENTIAL | | 5:36 PM | | procedure are in the | | | | PDT | | results section. | + +--------+ + + + | COMPLETE METABOLIC | Urgent | 10/01/2018 | | Results for this | | SET | | 5:36 PM | | procedure are in the | | (NA,K,CL,CO2,BUN,CRE | | PDT | | results section. | | AT,GLUC,CA,AST,ALT,B | | | | | | VANDANA TOTAL,ALK | | | | | | PHOS,ALB,PROT TOTAL) | | | | | + +--------+ + + + | BLOOD BANK HOLD TUBE | Urgent | 10/01/2018 | | Results for this | | - DON | | 5:36 PM | | procedure are in the | | | | PDT | | results section. | | T PROCESS | | | | | + +--------+ + + + | LIPASE, PLASMA | Urgent | 10/01/2018 | | Results for this | | | | 5:36 PM | | procedure are in the | | | | PDT | | results section. | + +--------+ + + + | ED INFORMATION | Routin | 10/01/2018 | | Results for this | | EXCHANGE | e | 4:51 PM | | procedure are in the | | | | PDT | | results section. | + +--------+ + + + in this encounter Results C. DIFFICILE TOXIN, W/REFLEX CONFIRMATION IF INDETERMINATE RESULTS (10/01/2018 5:38 PM) + + + + + | Component | Value | Ref Range | Performed At | + + + + + | C.DIFFICILE TOXIN | Negative | Negative | [facility] | | | | | SERVICES, CORE | + + + + + + + | Specimen | + + | Stool - Rectum | + + + + + + + | Performing | Address | City/State/Zipcode | Phone Number | | Organization | | | | + + + + + | [facility] | [address] | [place] [address] | | | SERVICES, CORE | [address] | | | + + + + + RAINBOW HOLD TUBE - BLUE TOP (10/01/2018 5:36 PM) + + | Specimen | + + | Blood | + + + + + + + | Performing | Address | City/State/Zipcode | Phone Number | | Organization | | | | + + + + + | [facility] | [address] | [place] [address] | | | SERVICES, CORE | [address] | | | + + + + + CBC AND AUTO DIFF (10/01/2018 5:36 PM) + + + + + | Component | Value | Ref Range | Performed At | + + + + + | WHITE CELL COUNT | 2.74 (L) | 3.50 - 10.80 K/cu mm | [facility] | | | | | SERVICES, CORE | + + + + + | RED CELL COUNT | 3.69 (L) | 4.00 - 5.20 M/cu mm | [facility] | | | | | SERVICES, CORE | + + + + + | HEMOGLOBIN | 10.1 (L) | 12.0 - 16.0 g/dL | [facility] | | | | | SERVICES, CORE | + + + + + | HEMATOCRIT | 31.4 (L) | 36.0 - 46.0 % | [facility] | | | | | SERVICES, CORE | + + + + + | MCV | 85.1 | 80.0 - 100.0 fL | [facility] | | | | | SERVICES, CORE | + + + + + | MCHC | 32.2 | 32.0 - 36.0 g/dL | [facility] | | | | | SERVICES, CORE | + + + + + | RDW SD | 41.1 | 35.1 - 46.3 fL | [facility] | | | | | SERVICES, CORE | + + + + + | PLATELET COUNT | 214 | 150 - 400 K/cu mm | [facility] | | | | | SERVICES, CORE | + + + + + | MPV | 9.5 (L) | 9.7 - 12.3 fL | [facility] | | | | | SERVICES, CORE | + + + + + | NRBC% | 0.0 | 0.0 - 0.3 % | [facility] | | | | | SERVICES, CORE | + + + + + | NRBC# | 0.00 | 0.00 - 0.02 K/cu mm | [facility] | | | | | SERVICES, CORE | + + + + + | NEUTROPHIL % | 78.5 (H) | 50.0 - 70.0 % | [facility] | | | | | SERVICES, CORE | + + + + + | LYMPHOCYTE % | 15.3 (L) | 18.0 - 42.0 % | [facility] | | | | | SERVICES, CORE | + + + + + | MONOCYTE % | 3.3 (L) | 3.5 - 9.0 % | [facility] | | | | | SERVICES, CORE | + + + + + | EOS % | 1.5 | 1.0 - 3.0 % | [facility] | | | | | SERVICES, CORE | + + + + + | BASO % | 0.7 | 0.0 - 2.0 % | [facility] | | | | | SERVICES, CORE | + + + + + | IG% | 0.7Comment: Increased | 0.0 - 1.0 % | [facility] | | | immature granulocytes | | SERVICES, CORE | | | (IG) define a left | | | | | shift. Immature | | | | | granulocytes (IG) are an | | | | | automated count of | | | | | metamyelocytes, | | | | | myelocytes and | | | | | promyelocytes. Bands | | | | | are not included in the | | | | | IG count. Bands are | | | | | included in the | | | | | neutrophil count. | | | + + + + + | NEUTROPHIL # | 2.15 | 1.80 - 7.70 K/cu mm | [facility] | | | | | SERVICES, CORE | + + + + + | LYMPHOCYTE # | 0.42 (L) | 1.00 - 4.80 K/cu mm | [facility] | | | | | SERVICES, CORE | + + + + + | MONOCYTE # | 0.09 (L) | 0.10 - 0.90 K/cu mm | [facility] | | | | | SERVICES, CORE | + + + + + | EOS # | 0.04 | 0.00 - 0.50 K/cu mm | [facility] | | | | | SERVICES, CORE | + + + + + | BASO # | 0.02 | 0.00 - 0.10 K/cu mm | [facility] | | | | | SERVICES, CORE | + + + + + | IG# | 0.02 | 0.00 - 0.10 K/cu mm | [facility] | | | | | SERVICES, CORE | + + + + + + + | Specimen | + + | Blood - Blood | + + + + + | Narrative | Performed At | + + + | Increased immature granulocytes (IG) define a left shift. | [facility] | | Immature granulocytes (IG) are an automated count of metamyelocytes, | LABORATORY | | myelocytes and promyelocytes. Bands are not included in the IG count. | SERVICES, CORE | | Bands are included in the neutrophil count. | | + + + + + + + + | Performing | Address | City/State/Zipcode | Phone Number | | Organization | | | | + + + + + | [facility] | [address] | [place] [address] | | | SERVICES, [place] | [address] | | | + + + + + BLOOD BANK HOLD TUBE - DON T PROCESS (10/01/2018 5:36 PM) + + + + + | Component | Value | Ref Range | Performed At | + + + + + | SPECIMEN COLLECTED, | Sample received with | | [facility] | | HELD | adeq label/volume to | | SERVICES, | | | process | | TRANSFUSION | | | | | MEDICINE | + + + + + + + | Specimen | + + | Blood - Blood | + + + + + + + | Performing | Address | City/State/Zipcode | Phone Number | | Organization | | | | + + + + + | [facility] | [address] | [place] [address] | | | SERVICES, | [address] | | | | TRANSFUSION MEDICINE | | | | + + + + + LIPASE, PLASMA (10/01/2018 5:36 PM) + + + + + | Component | Value | Ref Range | Performed At | + + + + + | LIPASE (LAB) | 1,676 (H) | 152 - 353 U/L | [facility] | | | | | SERVICES, CORE | + + + + + + + | Specimen | + + | Blood - Blood | + + + + + + + | Performing | Address | City/State/Zipcode | Phone Number | | Organization | | | | + + + + + | [facility] | [address] | [place] [address] | | | SERVICES, CORE | [address] | | | + + + + + COMPLETE METABOLIC SET (NA,K,CL,CO2,BUN,CREAT,GLUC,CA,AST,ALT,BILI TOTAL,ALK PHOS,ALB,PROT TOTAL) (10/01/2018 5:36 PM) + + + + + | Component | Value | Ref Range | Performed At | + + + + + | GLUCOSE, PLASMA | 123 (H) | 70 - 99 mg/dL | [facility] | | (LAB) | | | SERVICES, CORE | + + + + + | BUN, PLASMA (LAB) | 9 | 6 - 20 mg/dL | [facility] | | | | | SERVICES, CORE | + + + + + | CREATININE PLASMA | 0.53 (L) | 0.60 - 1.10 mg/dL | [facility] | | (LAB) | | | VALERI, CORE | + + + + + | EGFR - | >60 | >60 mL/min | [facility] | | NAMIBIAN | | | VALERI, CORE | + + + + + | EGFR NON | >60 | >60 mL/min | [facility] | | -NAMIBIAN | | | SERVICES, CORE | + + + + + | SODIUM, PLASMA (LAB) | 135 (L) | 136 - 145 mmol/L | [facility] | | | | | SERVICES, CORE | + + + + + | POTASSIUM, PLASMA | 3.3 (L) | 3.4 - 5.0 mmol/L | [facility] | | (LAB) | | | SERVICES, CORE | + + + + + | CHLORIDE, PLASMA | 100 | 97 - 108 mmol/L | [facility] | | (LAB) | | | SERVICES, CORE | + + + + + | TOTAL CO2, PLASMA | 25 | 21 - 32 mmol/L | [facility] | | (LAB) | | | SERVICES, CORE | + + + + + | CALCIUM, PLASMA | 9.2 | 8.6 - 10.2 mg/dL | [facility] | | (LAB) | | | SERVICES, CORE | + + + + + | CALCIUM(ALB | 9.6 | 8.6 - 10.2 mg/dL | [facility] | | CORRECTED) | | | SERVICES, CORE | + + + + + | BILIRUBIN TOTAL | 0.4 | 0.3 - 1.2 mg/dL | [facility] | | | | | SERVICES, CORE | + + + + + | TOTAL PROTEIN, | 7.0 | 6.4 - 8.2 g/dL | [facility] | | PLASMA (LAB) | | | SERVICES, CORE | + + + + + | ALBUMIN, PLASMA | 3.5 | 3.5 - 4.7 g/dL | [facility] | | (LAB) | | | SERVICES, CORE | + + + + + | ALK PHOS | 334 (H) | 53 - 141 U/L | [facility] | | | | | SERVICES, CORE | + + + + + | AST(SGOT) | 25 | <=41 U/L | [facility] | | | | | SERVICES, CORE | + + + + + | ALT (SGPT) | 101 (H) | <=60 U/L | [facility] | | | | | SERVICES, CORE | + + + + + | ANION GAP | 10 | 4 - 11 mmol/L | [facility] | | | | | SERVICES, CORE | + + + + + | ANION GAP(ALB | 11 | 4 - 11 mmol/L | [facility] | | CORRECTED) | | | SERVICES, CORE | + + + + + | POTASSIUM CMNT | No Hemo | | [facility] | | | | | SERVICES, CORE | + + + + + | BILI T CMNT | No Hemo | | [facility] | | | | | SERVICES, CORE | + + + + + | AST CMNT | No Hemo | | [facility] | | | | | SERVICES, CORE | + + + + + + + | Specimen | + + | Blood - Blood | + + + + + | Narrative | Performed At | + + + | GFR is estimated using the MDRD equation recommended by the | [facility] | | National Kidney Disease Education Program. Estimated GFR | LABORATORY | | Interpretive Information: <60 mL/min/1.73 sq | SERVICES, [facility] | | m Chronic Kidney Disease <15 mL/min/1.73 | | | sq m Kidney Failure Estimated GFR greater | | | than 60 mL/min/1.73 sq m is of limited clinical value. The MDRD | | | equation is not valid in the following situations: - Patients under | | | 18 years of age - Severe malnutrition or obesity - Vegetarian diet | | | - Rapidly changing kidney function - Amputees, paraplegics, or other | | | muscle-wasting diseses | | + + + + + + + + | Performing | Address | City/State/Zipcode | Phone Number | | Organization | | | | + + + + + | [facility] | [address] | [place] [address] | | | SERVICES, CORE | [address] | | | + + + + + ED INFORMATION EXCHANGE (10/01/2018 4:51 PM) + + + | Narrative | Performed At | + + + | [id number] CARE CORPORATIONCIA [id number] Criteria Met PDMP | COLLECTIVE | | Security and Safety No recent Security Events currently on file | MEDICAL | | ED Care Guidelines There are currently no ED Care Guidelines for this | TECHNOLOGIES | | patient. Please check your facility's medical records system. | | | Prescription Drug Report (12 Mo.) Rx Details Fill Date Drug | | | Description Qty. Prescriber CS MED 2018-09-27 MORPHINE SULF ER 15 MG | | | TABLET 56 RUFUS GALINDOWELL 0 2018-09-05 OXYCODONE HCL 5 MG TABLET | | | 50 AGGIE OLIVERA MD 0 2018-08-22 LORAZEPAM 1 MG TABLET 30 | | | AGGIE OLIVERA MD 0 2018-08-17 ACETAMINOPHEN-COD #3 TABLET 30 | | | [place] 0 2018-08-13 OXYCODONE HCL 5 MG TABLET 11 LUZMARIA | | | LYO 0 2018-08-13 OXYCODONE HCL 5 MG TABLET 39 LUZMARIA LYO 0 | | | 2018-08-10 OXYCODONE HCL 5 MG TABLET 30 [place] 0 | | | 2018-07-30 ACETAMINOPHEN-COD #3 TABLET 28 CARLOS ALAS JR, MD 0 | | | 2018-07-24 LORAZEPAM 0.5 MG TABLET 20 STEFFI BARRAZA MD 0 | | | 2018-07-14 LORAZEPAM 0.5 MG TABLET 10 CRYS DÍAZ I, M.D. 0 | | | 2018-04-11 HYDROCODONE-ACETAMIN 5-325 MG 16 ROLF WUERCH 0 | | | Rx Summary Metric Count CS II-V Rx 0 CS-II Rx 0 Quantity | | | Dispensed 320 Unique Pres[facility] 8 [facility] 5 Benzos 0 | | | Opioids 0 Long Acting Opioids 0 E.D. Visit Count (12 | | | mo.) Facility Visits [facility] 1 Total | | | 1 Note: Visits indicate total known visits. Recent | | | Emergency Department Visit Summary Date Facility City State Type | | | Diagnoses or Chief Complaint Oct 01, 2018 [facility] | | | [place] Emergency 10,800. Diarrhea | | | Recent Inpatient Visit Summary No recorded inpatient visits. | | | Care Providers There are no care providers on record at this time. | | | [employer] This patient has registered at the [facility] | | | [facility] Emergency Department For more information | | | visit: | | | [email or web address] | | | [email or web address] The above information is provided for the sole purpose of | | | patient treatment. Use of this information beyond the terms of Data | | | Sharing Memorandum of Understanding and License Agreement is | | | prohibited. In certain cases not all visits may be represented. | | | Consult the aforementioned facilities for additional information. | | | 2019 [employer] - [place], [place] - | | | [email or web address] | | + + + + + | Procedure Note | + + | Service Account, Rtf Results Inbound - 10/01/2018 4:52 PM PDT Formatting of this | | note may be different from the original.[id number] [id number] Met | | PDMPSecurity and SafetyNo recent Security Events currently on fileED Care | | GuidelinesThere are currently no ED Care Guidelines for this patient. Please check your | | facility's medical records system.Prescription Drug Report (12 Mo.)Rx DetailsFill Date | | Drug Description Qty. Prescriber MED 2018-09-27 MORPHINE SULF ER 15 MG TABLET 56 | | RUFUS ALVAREZ 0 2018-09-05 OXYCODONE HCL 5 MG TABLET 50 AGGIE OLIVERA MD 0 | | 2018-08-22 LORAZEPAM 1 MG TABLET 30 AGGIE OLIVERA MD 0 2018-08-17 ACETAMINOPHEN-COD #3 | | TABLET 30 [place] 0 2018-08-13 OXYCODONE HCL 5 MG TABLET 11 LUZMARIA LYO 0 | | 2018-08-13 OXYCODONE HCL 5 MG TABLET 39 LUZMARIA LYO 0 2018-08-10 OXYCODONE HCL 5 MG | | TABLET 30 [place] 0 2018-07-30 ACETAMINOPHEN-COD #3 TABLET 28 CARLOS ALAS, | | MD FRANCISCO 0 2018-07-24 LORAZEPAM 0.5 MG TABLET 20 STEFFI BARRAZA MD 0 2018-07-14 | | LORAZEPAM 0.5 MG TABLET 10 CRYS DÍAZ I, M.D. 0 2018-04-11 | | HYDROCODONE-ACETAMIN 5-325 MG 16 ROLF WUERCH 0 Rx SummaryMetric Count CS II-V Rx 0 | | CS-II Rx 0 Quantity Dispensed 320 [facility] 5 Benzos 0 | | Opioids 0 Long Acting Opioids 0 E.D. Visit Count (12 mo.)Facility Visits [facility] | [facility] 1 Total 1 Note: Visits indicate total known visits. Recent | | Emergency Department Visit SummaryDate Facility City State Type Diagnoses or Chief | | Complaint Oct 01, 2018 [facility] [place] Emergency | | 10,800. Diarrhea Recent Inpatient Visit SummaryNo recorded inpatient visits. Care | | ProvidersThere are no care providers on record at this time. Collective PortalThis | | patient has registered at the [facility] Emergency Department | | For more information visit: | | [email or web address] The above | | information is provided for the sole purpose of patient treatment. Use of this | | information beyond the terms of Data Sharing Memorandum of Understanding and License | | Agreement is prohibited. In certain cases not all visits may be represented. Consult the | | aforementioned facilities for additional information. 2019 [employer] | | [place]. [facility], [place] - [email or web address] | |Rx Summary | |Metric Count | |CS II-V Rx 0 | |CS-II Rx 0 | |Quantity Dispensed 320 | |Unique Prescribers 8 | |[facility] | |Benzos 0 | |Opioids 0 | |Long Acting Opioids 0 | | | | | | | |E.D. Visit Count (12 mo.) | |Facility Visits | |[facility] 1 | |Total 1 | |Note: Visits indicate total known visits. | | | |Recent Emergency Department Visit Summary | |Date Facility City State Type Diagnoses or Chief Complaint | |Oct 01, 2018 [facility] [place] Emergency | | 10,800. Diarrhea | | | | | | | |Recent Inpatient Visit Summary | |No recorded inpatient visits. | | | |Care Providers | |There are no care providers on record at this time. | |Medic Trace Portal | |This patient has registered at the [facility] Emergency Departmen t | |For more information visit: [email or web address] | |The above information is provided for the sole purpose of patient treatment. Use of this in formation beyond the terms of Data Sharing Memorandum of Understanding and License Agreement is prohibited. In | |certain cases not all visits may be represented. Consult the aforementioned facilities for additional information. | |2019 [employer] - [place], [place] - | + + + + + + + | Performing | Address | City/State/Zipcode | Phone Number | | Organization | | | | + + + + + | [facility] | [address], | [place], [place] | [phone] | | [employer] | [address] | [address] | | + + + + + in this encounter Visit Diagnoses + + | Diagnosis | + + | Diarrhea, unspecified type - Primary | + + Administered Medications + +---------+ + +------+------+ | Medication Order | MAR | Action | Dose | Rate | Site | | | Action | Date | | | | + +---------+ + +------+------+ | lactated ringers IV 1,000 mL, | New Bag | | 1,000 mL | | | | intravenous, ONCE, 1 dose, Mon | | 9 18:52 | | | | | 10/01/18 at 1900 | | PDT | | | | + +---------+ + +------+------+ +---+---+ | | | +---+---+ + +-------+ +------+---+---+ | loperamide (IMODIUM) capsule 2 | Given | | 2 mg | | | | mg 2 mg, oral, ONCE, 1 dose, Mon | | 9 20:47 | | | | | 10/01/18 at 2115 | | PDT | | | | + +-------+ +------+---+---+ +---+---+ | | | +---+---+ + +-------+ +--------+---+---+ | potassium chloride (KLOR-CON) | Given | | 40 mEq | | | | packet 40 mEq 40 mEq, oral, | | 9 21:12 | | | | | ONCE, 1 dose, 10/01/18 at 2130 | | PDT | | | | + +-------+ +--------+---+---+ +---+---+ | | | +---+---+ + +-------+ +--------+---+---+ | potassium chloride SR (K-DUR) | Given | 3/18/201 | 20 mEq | | | | tablet 20 mEq 20 mEq, oral, | | 9 21:12 | | | | | ONCE, 1 dose, 10/01/18 at 2130 | | PDT | | | | + +-------+ +--------+---+---+ +---+---+ | | | +---+---+ in this encounter
--- OUTSIDE RECORDS SUMMARY | ~2018-11-06 | XMS | Encounter Summary ---
Demographics + + + | Address | [address] | | | [place] [address] | + + + | Home Phone | | + + + | Preferred Language | Unknown | + + + | Marital Status | | + + + | Congregation Affiliation | NRP | + + + | Race | White | + + + | Ethnic Group | Not or | + + + Author + + + | Author | [facility] | + + + | Organization | [facility] | + + + | Address | Unknown | + + + | Phone | Unavailable | + + + Support + + + + + | Name | Relationship | Address | Phone | + + + + + | ELSA GOODE | ECON | [address] | | | | | [place] [address] | | + + + + + Care Team Providers + +------+ + | Care Fire Protection Specialist Name | Role | Phone | + +------+ + | Piotr Plummer MD | PCP | | + +------+ + Encounter Details +--------+ + + + + | Date | Type | Department | Care Team | Description | +--------+ + + + + | 10/16/ | Terminal Computer Operator | Hematology/Medical | Toni Mccrary, | | | 2019 | | Oncology at [place] | ,PhD [address] | | | | | [facility] | [place], [place] | | | | | [address] | [address] | | | | | Mailcode: [place] | [phone] | | | | | for Health and | | | | | | Healing, [address] | | | | | | [place], [place] | | | | | | [address] | | | | | | [phone] | | | +--------+ + + + [...] Rd | | | | | | [place] [address] | | +--------+ + + + + | 11/14/ | Office | Hematology & | Taz Mcneal, | | | 2019 | Visit | Oncology | FABIANA[facility]Cindy [address] | | | | | | [address] | | | | | | [facility] [place] | | | | | | [address] | | | | | | [phone] | | | | | | | | +--------+ + + + + | 11/14/ | Appointment | Hematology & | B/C, [address] | | | 2019 | | Oncology | [place], | | | | | | [place] [address] | | +--------+ + + + + [...] [place] | | | | | | [address] | | | | | | [phone] | | | | | | | | +--------+ + + + + | 11/28/ | Appointment | Hematology & | B/C, [address] | | | 2019 | | Oncology | [place], | | | | | | [place] [address] | | +--------+ + + + + | 12/12/ | Clinical | | | | | 2019 | Support | | | | | | Staff | | | | +--------+ + + + + | 12/12/ | Office | Hematology & | Taz Mcneal, | | | 2018 | Visit | Oncology | PA-C [address] [facility] | | | | | | [address] | | | | | | [place], [place] | | | | | | [address] | | | | | | [phone] | | | | | | | | +--------+ + + + + | 12/12/ | Appointment | Hematology & | B/C, [address] | | | 2019 | | Oncology | [place], | | | | | | [place] [address] | | +--------+ + + + + as of this encounter Visit Diagnoses Not on filein this encounter"
--- OUTSIDE RECORDS SUMMARY | ~2018-11-06 | XMS | Encounter Summary ---
Demographics + + + | Address | [address] | | | [place] [address] | + + + | Home Phone | | + + + | Preferred Language | Unknown | + + + | Marital Status | | + + + | Pentecostalism Affiliation | NRP | + + + | Race | White | + + + | Ethnic Group | Not or | + + + Author + + + | Author | [facility] | + + + | Organization | [facility] | + + + | Address | Unknown | + + + | Phone | Unavailable | + + + Support + + + + + | Name | Relationship | Address | Phone | + + + + + | ELSA GOODE | ECON | [address] | | | | | [place] [address] | | + + + + + Care Team Providers + +------+ + | Care Humidifier Attendant Name | Role | Phone | + +------+ + | Piotr Plummer MD | PCP | | + +------+ + Reason for Visit + + + | Reason | Comments | + + + | Ambulatory | | | Chemotherapy | | + + + Encounter Details +--------+ + + + + | Date | Type | Department | Care Team | Description | +--------+ + + + + | 08/22/ | Hospital | Hematology/Medical | A, [address] | | | 2019 | Encounter | Oncology at [facility] | [address] [place], | | | | | [address] | [place] [address] | | | | | Mailcode: [place] | | | | | | for Health and | | | | | | Healing, [address] | | | | | | [place], [place] | | | | | | [address] | | | | | | [phone] | | | +--------+ + + + [...] + + + | Blood Pressure | 95/69 | 08/22/2018 9:20 AM PST | + + + + | Pulse | 101 | 08/22/2018 9:20 AM PST | + + + + | Temperature | 36.9 C (98.4 F) | 08/22/2018 9:20 AM PST | + + + + | Respiratory Rate | 16 | 08/22/2018 9:20 AM PST | + + + + | Oxygen Saturation | 96% | 08/22/2018 9:20 AM PST | + + + + | Inhaled Oxygen | - | - | | Concentration | | | + + + + | Weight | 57.3 kg (126 lb 6.4 | 08/22/2018 9:20 AM PST | | | oz) | | + + + + | Height | - | - | + + + + | Body Mass Index | 22.39 | 08/22/2018 9:20 AM PST | + + + + in this encounter Medications at Time of [...] | + + +---------+---------+ + + | gabapentin 300 mg | Take 1 capsule by | 42 | 0 | 08/13/19 | | | oral capsule | mouth three times | capsule | | 19 | 9 | | | daily for 14 days. | | | | | + + +---------+---------+ + + as of this encounter Progress Notes Mary August, AJY - 08/22/2018 9:00 AM PSTChemotherapy Nurse Note Name: Elaine Goode Date: 08/22/2018 Physician: Hermann Allergies: Elaine has No Known Allergies. Diagnosis: Pancreatic Ca Significant Other: family chairside Nursing Assessment: Fever: no; Diarrhea:No Constipation: No SOB / Cough: no; Rash: no Edema: no; Mucositis: no; Urinary: no; Neuropathy: no; S/S Bleeding: no; Severity (1=Not at all, 2=A little, 3=Quite a bit, 4=Very much) Nausea and/or Vomitin Fatigue: 1 Pain: denies Narrative: Patient here for Gemzar+Abraxane. PAC accessed without blood return, tPa instilled for one hour. Blood return achieved when ranjit singh laid on her back, bent her knees and turned her head to the right Labs drawn via PAC and sent to lab. Positive blood return on IV line prior and after infusion. Medication infus ed with 250ml NS sidearm bag. Pt tolerated without incident. PAC flushed and deaccessed p er protocol. Pt negative for blood return at discharge, Chest Xray ordered by MD and pt sent downstairs upon discharge. Pt Alert & Oriented x3, No acute distress, Mood & affect ap propriate and Recent & remote memory intact and discharged with family/class c driver, ambulatory an d instructions have been provided. Refer to MAR and Onc Lines and Transfusions doc flowsheet for treatment details. in this encounter Plan of Treatment +--------+ + + + + | Date | Type | Specialty | Care Team | Description | +--------+ + + + + | 11/14/ | Appointment | Hematology & | Rn, Fast Track | | | 2018 | | Oncology | [address] | | | | | | [place] [address] | | +--------+ + + + + | 11/14/ | Office | Hematology & | Taz Mcneal, | | | 2018 | Visit | Oncology | OLYA [address] | | | | | | [address] | | | | | | [place], [place] | | | | | | [address] | | | | | | [phone] | | | | | | | | +--------+ + + + + | 11/14/ | Appointment | Hematology & | B/C, [address] | | | 2018 | | Oncology | [place], | | | | | | [place] [address] | | +--------+ + + + + | 11/28/ | Clinical | | | | | 2019 | Support | | | | | | Staff | | | | +--------+ + + + + | 11/28/ | Office | Hematology & | Taz Mcneal, | | | 2018 | Visit | Oncology | [facility]Cindy [address] | | | | | | [address] | | | | | | [facility], [place] | | | | | | [address] | | | | | | [phone] | | | | | | | | +--------+ + + + + | 11/28/ | Appointment | Hematology & | B/C, [address] | | | 2019 | | Oncology | [place], | | | | | | [place] [address] | | +--------+ + + + + | 12/12/ | Clinical | | | | | 2018 | Support | | | | | | Staff | | | | +--------+ + + + + | 12/12/ | Office | Hematology & | Taz Mcneal, | | | 2018 | Visit | Oncology | PA-C [address] [facility] | | | | | | [address] | | | | | | [place] | | | | | | [address] | | | | | | [phone] | | | | | | | | +--------+ + + + + | 12/12/ | Appointment | Hematology & | B/C, [address] | | | 2019 | | Oncology | [place] | | | | | | [place] [address] | | +--------+ + + + + as of this encounter Procedures + +--------+ + + + | Procedure Name | Priori | Date/Time | Associated Diagnosis | Comments | | | ty | | | | + +--------+ + + + | CBC WITH AUTO DIFF - | Routin | 08/22/2018 | Pancreatic | | | OLP | e | 11:12 AM | adenocarcinoma (HCC) | | | | | PST | | | + +--------+ + + + | CBC+DIFF,POC | Routin | 08/22/2018 | Pancreatic | Results for this | | | e | 11:12 AM | adenocarcinoma (HCC) | procedure are in the | | | | PST | | results section. | + +--------+ + + + | COMPLETE METABOLIC | Routin | 08/22/2018 | Pancreatic | | | PANEL - OLP | e | 11:09 AM | adenocarcinoma (HCC) | | | | | PST | | | + +--------+ + + + | CMP, POC (BMP+LFT) | Routin | 08/22/2018 | Pancreatic | Results for this | | | e | 11:09 AM | adenocarcinoma (HCC) | procedure are in the | | | | PST | | results section. | + +--------+ + + + | CANCER AG GI (19-9), | Routin | 08/22/2018 | Pancreatic | Results for this | | SERUM - OLP | e | 9:15 AM | adenocarcinoma (HCC) | procedure are in the | | | | PST | | results section. | + +--------+ + + + | INR | Routin | 08/22/2018 | Pancreatic | Results for this | | | e | 9:15 AM | adenocarcinoma (HCC) | procedure are in the | | | | PST | | results section. | + +--------+ + + + | CANCER AG GI (19-9), | Routin | 08/22/2018 | Pancreatic | Results for this | | SERUM | e | 9:15 AM | adenocarcinoma (HCC) | procedure are in the | | | | PST | | results section. | + +--------+ + + + | APTT (ACT. PART. | Routin | 08/22/2018 | Pancreatic | Results for this | | THROMBO TIME) | e | 9:15 AM | adenocarcinoma (HCC) | procedure are in the | | | | PST | | results section. | + +--------+ + + + | PHOSPHORUS, PLASMA | Routin | 08/22/2018 | Pancreatic | Results for this | | | e | 9:15 AM | adenocarcinoma (HCC) | procedure are in the | | | | PST | | results section. | + +--------+ + + + | MAGNESIUM, PLASMA | Routin | 08/22/2018 | Pancreatic | Results for this | | | e | 9:15 AM | adenocarcinoma (HCC) | procedure are in the | | | | PST | | results section. | + +--------+ + + + | LDH TOTAL, PLASMA | Routin | 08/22/2018 | Pancreatic | Results for this | | | e | 9:15 AM | adenocarcinoma (HCC) | procedure are in the | | | | PST | | results section. | + +--------+ + + + in this encounter Results CBC+DIFF,POC (08/22/2018 11:12 AM) + + + + + | Component | Value | Ref Range | Performed At | + + + + + | WBC POC | 11.2 (H) | 3.5 - 10.8 10*3/uL | [facility] | | | | | POINT OF CARE | | | | | TESTS | + + + + + | RBC POC | 4.02 | 4.00 - 5.20 10*6/uL | [facility], | | | | | POINT OF CARE | | | | | TESTS | + + + + + | HGB POC | 11.5 (L) | 12.0 - 16.0 g/dL | [facility] | | | | | POINT OF CARE | | | | | TESTS | + + + + + | HCT POC | 35.0 (L) | 36.0 - 46.0 % | [facility] | | | | | POINT OF CARE | | | | | TESTS | + + + + + | MCV POC | 87.1 | 80.0 - 100 fL | [facility] | | | | | POINT OF CARE | | | | | TESTS | + + + + + | MCH POC | 28.6 | 27.0 - 34.0 pg | [facility] | | | | | POINT OF CARE | | | | | TESTS | + + + + + | MCHC POC | 32.9 (L) | 32.0 - 36.0 g/dL | [facility] | | | | | POINT OF CARE | | | | | TESTS | + + + + + | RDW SD, POC | 36.9 | 35.1 - 46.3 fL | [facility] | | | | | POINT OF CARE | | | | | TESTS | + + + + + | PLT POC | 335 | 150 - 400 10*3/uL | [facility] | | | | | POINT OF CARE | | | | | TESTS | + + + + + | MPV POC | 8.1 (L) | 9.7 - 12.3 fL | [facility] | | | | | POINT OF CARE | | | | | TESTS | + + + + + | NEUTROPHIL% POC | 86.3 (H) | 50.0 - 70.0 % | [facility] | | | | | POINT OF CARE | | | | | TESTS | + + + + + | LYMPH% POC | 6.1 (L) | 18 - 42 % | [facility] | | | | | POINT OF CARE | | | | | TESTS | + + + + + | MONO %, POC | 6.7 | 3.5 - 9.0 % | [facility] | | | | | POINT OF CARE | | | | | TESTS | + + + + + | EOS %, POC | 0.8 (L) | 1.0 - 3.0 % | [facility] | | | | | POINT OF CARE | | | | | TESTS | + + + + + | BASO %, POC | 0.1 | 0.0 - 2.0 % | [facility] | | | | | POINT OF CARE | | | | | TESTS | + + + + + | NEUTROPHIL# POC | 9.6 (H) | 1.8 - 7.7 10*3/uL | [facility] | | | | | POINT OF CARE | | | | | TESTS | + + + + + | LYMPH# POC | 0.7 (L) | 1.0 - 4.8 10*3/uL | [facility] | | | | | POINT OF CARE | | | | | TESTS | + + + + + | MONO #, POC | 0.8 | 0.1 - 0.9 10*3/uL | [facility] | | | | | POINT OF CARE | | | | | TESTS | + + + + + | EOS #, POC | 0.1 | 0.0 - 0.5 10*3/uL | [facility] | | | | | POINT OF CARE | | | | | TESTS | + + + + + | BASO #, POC | 0.0 | 0.0 - 0.1 10*3/uL | [facility] | | | | | POINT OF CARE | | | | | TESTS | + + + + + + + | Specimen | + + | Blood - Blood | + + + + + + + | Performing | Address | City/State/Zipcode | Phone Number | | Organization | | | | + + + + + | [facility] | [address] | [place] [address] | | | OF CARE TESTS | | | | + + + + + CMP, POC (BMP+LFT) (08/22/2018 11:09 AM) + +---------+ + + | Component | Value | Ref Range | Performed At | + +---------+ + + | SODIUM, POC | 141 | 134 - 143 mmol/L | [facility], | | | | | POINT OF CARE | | | | | TESTS | + +---------+ + + | POTASSIUM, POC | 4.5 | 3.4 - 5.0 mmol/L | [facility] | | | | | POINT OF CARE | | | | | TESTS | + +---------+ + + | TOTAL CO2, POC | 30 (H) | 22 - 28 mmol/L | [facility], | | | | | POINT OF CARE | | | | | TESTS | + +---------+ + + | CHLORIDE, POC | 101 | 97 - 108 mmol/L | [facility] | | | | | POINT OF CARE | | | | | TESTS | + +---------+ + + | GLUCOSE, POC | 161 (H) | 60 - 99 mg/dL | [facility], | | | | | POINT OF CARE | | | | | TESTS | + +---------+ + + | CALCIUM TOTAL, POC | 9.9 | 8.6 - 10.2 mg/dL | [facility], | | | | | POINT OF CARE | | | | | TESTS | + +---------+ + + | BUN, POC | 12 | 6 - 20 mg/dL | [facility], | | | | | POINT OF CARE | | | | | TESTS | + +---------+ + + | CREATININE, POC | 0.7 | 0.6 - 1.1 mg/dL | [facility], | | | | | POINT OF CARE | | | | | TESTS | + +---------+ + + | ALK PHOS, CMP POC | 157 (H) | 41 - 109 U/L | [facility], | | | | | POINT OF CARE | | | | | TESTS | + +---------+ + + | ALT, CMP POC | 40 | 0 - 60 U/L | [facility], | | | | | POINT OF CARE | | | | | TESTS | + +---------+ + + | AST, CMP POC | 28 | 0 - 41 U/L | [facility], | | | | | POINT OF CARE | | | | | TESTS | + +---------+ + + | BILIRUBIN TOTAL, CMP | 0.5 | 0.3 - 1.2 mg/dL | [facility], | | POC | | | POINT OF CARE | | | | | TESTS | + +---------+ + + | ALBUMIN, CMP POC | 3.3 (L) | 3.5 - 4.7 g/dL | [facility], | | | | | POINT OF CARE | | | | | TESTS | + +---------+ + + | PROTEIN TOTAL, CMP | 6.8 | 6.4 - 8.2 g/dL | [facility], | | POC | | | POINT OF CARE | | | | | TESTS | + +---------+ + + + + | Specimen | + + | Blood | + + + + + + + | Performing | Address | City/State/Zipcode | Phone Number | | Organization | | | | + + + + + | [facility] | [address] | [place] [address] | | | OF CARE TESTS | | | | + + + + + MAGNESIUM, PLASMA (08/22/2018 9:15 AM) + +-------+ + + | Component | Value | Ref Range | Performed At | + +-------+ + + | MAGNESIUM,PLASMA | 2.3 | 1.6 - 2.6 mg/dL | [facility] | | | | | SERVICES, CORE | + +-------+ + + + + | Specimen | + + | Blood - Blood | + + + + + + + | Performing | Address | City/State/Zipcode | Phone Number | | Organization | | | | + + + + + | [facility] | [address] | [place] [address] | | | ELISHA TRAMMELL | [address] | | | + + + + + PHOSPHORUS, PLASMA (08/22/2018 9:15 AM) + +-------+ + + | Component | Value | Ref Range | Performed At | + +-------+ + + | PHOSPHORUS, PLASMA | 2.4 | 2.4 - 4.7 mg/dL | [facility] | | (LAB) | | | [address] | + +-------+ + + + + | Specimen | + + | Blood - Blood | + + + + + + + | Performing | Address | City/State/Zipcode | Phone Number | | Organization | | | | + + + + + | [facility] | [address] | [place] [address] | | | SERVICES, CORE | [address] | | | + + + + + INR (08/22/2018 9:15 AM) + +-------+ + + | Component | Value | Ref Range | Performed At | + +-------+ + + | INR | 1.08 | 0.90 - 1.20 INR | [facility] | | | | | SERVICES, CORE | + +-------+ + + + + | Specimen | + + | Blood - Blood | + + + + + | Narrative | Performed At | + + + | INR Therapeutic ranges for full anticoagulation: INR for | [facility] | | Venous Thromboembolism (2.0 - 3.0) INR INR | LABORATORY | | for most patients with mech. valves (2.5 - 3.5) INR | SERVICES, CORE | + + + + + + + + | Performing | Address | City/State/Zipcode | Phone Number | | Organization | | | | + + + + + | [facility] | [address] | [place] [address] | | | SERVICES, ELISHA | [address] | | | + + + + + LDH TOTAL, PLASMA (08/22/2018 9:15 AM) + +---------+ + + | Component | Value | Ref Range | Performed At | + +---------+ + + | LD TOTAL, PLASMA | 169 | <=250 U/L | [facility] | | | | | SERVICES, CORE | + +---------+ + + | LD CMNT | No Hemo | | [facility] | | | | | [address] | + +---------+ + + + + | Specimen | + + | Blood - Blood | + + + + + + + | Performing | Address | City/State/Zipcode | Phone Number | | Organization | | | | + + + + + | [facility] | [address] | [place] [address] | | | ELISHA TRAMMELL | [address] | | | + + + + + APTT (ACT. PART. THROMBO TIME) (08/22/2018 9:15 AM) + +-------+ + + | Component | Value | Ref Range | Performed At | + +-------+ + + | APTT | 30.3 | 26.0 - 36.0 seconds | [facility] | | | | | SERVICES, CORE | + +-------+ + + + + | Specimen | + + | Blood - Blood | + + + + + | Narrative | Performed At | + + + | APTT values for monitoring heparin therapy may be affected by | [facility] | | specimens processed >1 hour after collection. APTT Therapeutic | LABORATORY | | Range: (75 - 120) sec | SERVICES, CORE | | Heparin levels of 0.35 - 0.7 U/mL | | + + + + + + + + | Performing | Address | City/State/Zipcode | Phone Number | | Organization | | | | + + + + + | [facility] | [address] | [place] [address] | | | SERVICES, CORE | [address] | | | + + + + + CANCER AG GI (19-9), SERUM (08/22/2018 9:15 AM) + + + + + | Component | Value | Ref Range | Performed At | + + + + + | CANCER AG GI (19-9) | 9,458.1 (H) | <=37.0 U/mL | [facility] | | [facility] | | | SERVICES, CORE | + + + + + + + | Specimen | + + | Blood - Blood | + + + + + + + | Performing | Address | City/State/Zipcode | Phone Number | | Organization | | | | + + + + + | [facility] | [address] | [place] [address] | | | SERVICES, CORE | [address] | | | + + + + + in this encounter Visit Diagnoses + + | Diagnosis | + + | Pancreatic adenocarcinoma (HCC) | + + | Malignant neoplasm of pancreas, part unspecified | + + Administered Medications + + + +------+------+------+ | Medication Order | MAR | Action | Dose | Rate | Site | | | Action | Date | | | | + + + +------+------+------+ | alteplase (CATHFLO ACTIVASE) | Line | 08/22/2018 | 2 mg | | | | injection 2 mg 2 mg, | Lock | 09:55 | | | | | Intracatheter, ONCE, 1 dose, Wed | Isabel | PST | | | | | 08/22/18 at 1000 | d | | | | | + + + +------+------+------+ +---+---+ | | | +---+---+ + +-------+ +--------+---+---+ | aprepitant (CINVANTI) | Given | 08/22/2018 | 130 mg | | | | injectable emulsion 130 mg 130 | | 11:49 | | | | | mg, intravenous, ONCE, 1 dose, | | PST | | | | | 08/22/18 at 1130 | | | | | | + +-------+ +--------+---+---+ +---+---+ | | | +---+---+ + +-------+ +------+---+---+ | dexamethasone PF (DECADRON) | Given | 08/22/2018 | 8 mg | | | | injection 8 mg 8 mg, | | 11:53 | | | | | intravenous, ONCE, 1 dose, Wed | | PST | | | | | 08/22/18 at 1130 | | | | | | + +-------+ +------+---+---+ +---+---+ | | | +---+---+ + +---------+ + +---------+---+ | gemcitabine 1,600 mg in NaCl | New Bag | 08/22/2018 | 1,600 mg | 584.21 | | | 0.9 % (NS) IV 1,600 mg (rounded | | 13:38 | | mL/hr | | | from 1,590 mg = 1,000 mg/m2 | | PST | | | | | 1.59 m2 Treatment plan recorded | | | | | | | BSA), intravenous, Administer | | | | | | | over 30 Minutes, ONCE, 1 dose, | | | | | | | 08/22/18 at 1200, HIGH ALERT | | | | | | | MEDICATION-CHEMOTHERAPY | | | | | | | Irritant. May run 500 mL NS to | | | | | | | decrease vein discomfort. | | | | | | + +---------+ + +---------+---+ +---+---+ | | | +---+---+ + +---------+ +--------+ +---+ | PACLitaxel (protein bound) | New Bag | 08/22/2018 | 200 mg | 80 mL/hr | | | (ABRAXANE) injection 200 mg 200 | | 12:27 | | | | | mg (rounded from 198.75 mg = 125 | | PST | | | | | mg/m2 | | | | | | | 1.59 m2 Treatment plan recorded | | | | | | | BSA), intravenous, ONCE, 1 dose, | | | | | | | 08/22/18 at 1130 | | | | | | + +---------+ +--------+ +---+ +---+---+ | | | +---+---+ + +-------+ +---------+---+---+ | palonosetron HCl (ALOXI) | Given | 08/22/2018 | 0.25 mg | | | | injection 0.25 mg 0.25 mg, | | 11:51 | | | | | intravenous, ONCE, 1 dose, Wed | | PST | | | | | 08/22/18 at 1130 | | | | | | + +-------+ +---------+---+---+ +---+---+ | | | +---+---+ in this encounter"
--- OUTSIDE RECORDS SUMMARY | ~2018-11-06 | XMS | Encounter Summary ---
Demographics + + + | Address | [address] | | | [place] [address] | + + + | Home Phone | | + + + | Preferred Language | Unknown | + + + | Marital Status | | + + + | Taoism Affiliation | NRP | + + + | Race | White | + + + | Ethnic Group | Not or | + + + Author + + + | Author | [facility] | + + + | Organization | [facility] | + + + | Address | Unknown | + + + | Phone | Unavailable | + + + Support + + + + + | Name | Relationship | Address | Phone | + + + + + | ELSA GOODE | ECON | [address] | | | | | [place] [address] | | + + + + + Care Team Providers + +------+ + | Care Ring Barker Operator Name | Role | Phone | + +------+ + | Piotr Plummer MD | PCP | | + +------+ + Encounter Details +--------+ + + + + | Date | Type | Department | Care Team | Description | +--------+ + + + + | 10/02/ | Headline Writer | Hematology/Medical | Toni Mccrary, | | | 2019 | | [facility] | ,PhD [address] | | | | | for Health & Healing | [place], [place] | | | | | [address] | [address] | | | | | Mailcode: [facility] | [phone] | | | | | for Health and | | | | | | Healing, [address] | | | | | | [place], [place] | | | | | | [address] | | | | | | [phone] | | | +--------+ + + + [...] Rd | | | | | | [place] [address] | | +--------+ + + + + | 11/14/ | Office | Hematology & | Taz Mcneal, | | | 2019 | Visit | Oncology | FABIANA-Cindy [address] | | | | | | [address] | | | | | | [facility] [place] | | | | | | [address] | | | | | | [phone] | | | | | | | | +--------+ + + + + | 11/14/ | Appointment | Hematology & | B/C, Pod [address] | | | 2019 | | Oncology | [place], | | | | | | [place] [address] | | +--------+ + + + + [...] [place] | | | | | | [address] | | | | | | [phone] | | | | | | | | +--------+ + + + + | 11/28/ | Appointment | Hematology & | B/C, Pod [address] | | | 2019 | | Oncology | [place], | | | | | | [place] [address] | | +--------+ + + + + | 12/12/ | Clinical | | | | | 2019 | Support | | | | | | Staff | | | | +--------+ + + + + | 12/12/ | Office | Hematology & | Taz Mcneal, | | | 2018 | Visit | Oncology | PA-C [address] [facility] | | | | | | [address] | | | | | | [place], [place] | | | | | | [address] | | | | | | [phone] | | | | | | | | +--------+ + + + + | 12/12/ | Appointment | Hematology & | B/C, Pod [address] | | | 2019 | | Oncology | [place], | | | | | | [place] [address] | | +--------+ + + + + as of this encounter Visit Diagnoses Not on filein this encounter"
--- OUTSIDE RECORDS SUMMARY | ~2018-11-06 | XMS | Encounter Summary ---
Demographics + + + | Address | [address] | | | [place] [address] | + + + | Home Phone | | + + + | Preferred Language | Unknown | + + + | Marital Status | | + + + | Orthodoxy Affiliation | NRP | + + + | Race | White | + + + | Ethnic Group | Not or | + + + Author + + + | Author | [facility] | + + + | Organization | [facility] | + + + | Address | Unknown | + + + | Phone | Unavailable | + + + Support + + + + + | Name | Relationship | Address | Phone | + + + + + | ELSA GOODE | ECON | [address] | | | | | [place] [address] | | + + + + + Care Team Providers + +------+ + | Care Graduating Machine Operator Name | Role | Phone | [...] + + + + | 08/13/ | Cutter Wet Machine | Digestive Health | Tigist Lawrence MD | | | 2019 | | [facility] | [address] | | | | | [address] | [facility], | | | | | Mailcode: [facility] [address] | | | | | for Health and | [phone] | | | | | [facility] | | | | | | [place], [place] | | | | | | [address] | | | | | | [phone] | | | +--------+ + + + [...] | +--------+ + + + + | 05/01/ | Appointment | Hematology & | [address] | | | 2019 | | Oncology | [address] | | | | | | [place] [address] | | +--------+ + + + + | 11/14/ | Office | Hematology & | Tza Mcneal, | | | 2019 | Visit | Oncology | PA-C [address] | | | | | | [address] | | | | | | [place] | | | | | | [address] | | | | | | [phone] | | | | | | | | +--------+ + + + + | 11/14/ | Appointment | Hematology & | B/C, Pod [address] | | | 2019 | | Oncology | [place] | | | | | | [place] [address] | | +--------+ + + + + [...] Rd | | | | | | [place], [place] | | | | | | [address] | | | | | | [phone] | | | | | | | | +--------+ + + + + | 11/28/ | Appointment | Hematology & | B/C, Pod [address] | | | 2018 | | Oncology | [place], | | | | | | [place] [address] | | +--------+ + + + + [...] Rd | | | | | | [place], [place] | | | | | | [address] | | | | | | [phone] | | | | | | | | +--------+ + + + + | 12/12/ | Appointment | Hematology & | B/C, Pod [address] | | | 2019 | | Oncology | [place], | | | | | | [place] [address] | | +--------+ + + + + as of this encounter Visit Diagnoses Not on filein this encounter"
--- OUTSIDE RECORDS SUMMARY | ~2018-11-06 | XMS | Encounter Summary ---
Demographics + + + | Address | [address] | | | [place] [address] | + + + | Home Phone | | + + + | Preferred Language | Unknown | + + + | Marital Status | | + + + | Episcopal Affiliation | NRP | + + + | Race | White | + + + | Ethnic Group | Not or | + + + Author + + + | Author | [facility] | + + + | Organization | [facility] | + + + | Address | Unknown | + + + | Phone | Unavailable | + + + Support + + + + + | Name | Relationship | Address | Phone | + + + + + | ELSA GOODE | ECON | [address] | | | | | [place] [address] | | + + + + + Care Team Providers + +------+ + | Care Hair Dresser Name | Role | Phone | + [...] | +--------+ + + + + | 09/13/ | Telephone | Hematology/Medical | [address] | Medical nutrition | | 2019 | | [facility] at [facility] | [address] | therapy | | | | [address] | [address] | | | | | Mailcode: Center | [place], [place] | | | | | [facility] and | [address] | | | | | Healing, [facility] [address] | | | | | | [place], [place] | | | | | | [address] | | | | | | [phone] | | | +--------+ + + + [...] | | | | | [place] [address] | | +--------+ + + + + | 11/14/ | Office | Hematology & | Taz Mcneal, | | | 2018 | Visit | Oncology | PA-C [address] | | | | | | [address] | | | | | | [place] | | | | | | [address] | | | | | | [phone] | | | | | | | | +--------+ + + + + | 11/14/ | Appointment | Hematology & | B/C, Pod [address] | | | 2019 | | Oncology | [place] | | | | | | [place] [address] | | +--------+ + + + + [...] Rd | | | | | | [place], [place] | | | | | | [address] | | | | | | [phone] | | | | | | | | +--------+ + + + + | 11/28/ | Appointment | Hematology & | B/C, Pod [address] | | | 2019 | | Oncology | [place], | | | | | | [place] [address] | | +--------+ + + + + [...] [place] | | | | | | [address] | | | | | | [phone] | | | | | | | | +--------+ + + + + | 12/12/ | Appointment | Hematology & | B/C, Pod [address] | | | 2019 | | Oncology | [place], | | | | | | [place] [address] | | +--------+ + + + + as of this encounter Visit Diagnoses Not on filein this encounter"
--- OUTSIDE RECORDS SUMMARY | ~2018-11-06 | XMS | Encounter Summary ---
Demographics + + + | Address | [address] | | | [place] [address] | + + + | Home Phone | | + + + | Preferred Language | Unknown | + + + | Marital Status | | + + + | Yazidi Affiliation | NRP | + + + | Race | White | + + + | Ethnic Group | Not or | + + + Author + + + | Author | [facility] | + + + | Organization | [facility] | + + + | Address | Unknown | + + + | Phone | Unavailable | + + + Support + + + + + | Name | Relationship | Address | Phone | + + + + + | ELSA GOODE | ECON | [address] | | | | | [place] [address] | | + + + + + Care Team Providers + +------+ + | Care Casino Host Name | Role | Phone | + +------+ + | Piotr Plummer MD | PCP | | + +------+ + Reason for Visit + + + | Reason | Comments | + + + | Genetic test | [facility] | + + + Encounter Details +--------+ + + + + | Date | Type | Department | Care Team | Description | +--------+ + + + + | 08/23/ | Documentati | Hematology/Medical | Toni Mccrary, | Genetic test ([facility] | | 2019 | on | [facility] [place] | ,PhD [address] | xT) | | | | for Health & Healing | Ave [place], [place] | | | | | [address] | [address] | | | | | Mailcode: [place] | [phone] | | | | | for Health and | | | | | | Healing, [address] | | | | | | [place], [place] | | | | | | [address] | | | | | | [phone] | | | +--------+ + + + [...] [address] | | | | | | [place] [address] | | +--------+ + + + + | 11/14/ | Office | Hematology & | Taz Mcneal, | | | 2018 | Visit | Oncology | PA-C [address] | | | | | | [address] | | | | | | [place], [place] | | | | | | [address] | | | | | | [phone] | | | | | | | | +--------+ + + + + | 11/14/ | Appointment | Hematology & | B/C, Pod [address] | | | 2019 | | Oncology | [place], | | | | | | [place] [address] | | +--------+ + + + + | 11/28/ | Clinical | | | | | 2019 | Support | | | | | | Staff | | | | +--------+ + + + + | 11/28/ | Office | Hematology & | Taz Mcneal, | | | 2018 | Visit | Oncology | [place] [address] [facility] | | | | | | [address] | | | | | | [facility] | | | | | | [address] | | | | | | [phone] | | | | | | | | +--------+ + + + + | 11/28/ | Appointment | Hematology & | B/C, Pod [address] | | | 2018 | | Oncology | [place] | | | | | | [place] [address] | | +--------+ + + + + | 12/12/ | Clinical | | | | | 2018 | Support | | | | | | Staff | | | | +--------+ + + + + | 12/12/ | Office | Hematology & | Taz Mcneal, | | | 2019 | Visit | Oncology | [place] [address] [facility] | | | | | | [address] | | | | | | [place] | | | | | | [address] | | | | | | [phone] | | | | | | | | +--------+ + + + + | 12/12/ | Appointment | Hematology & | B/C, Pod [address] | | | 2019 | | Oncology | [place], | | | | | | [place] [address] | | +--------+ + + + + as of this encounter Visit Diagnoses Not on filein this encounter"
--- OUTSIDE RECORDS SUMMARY | ~2018-11-06 | XMS | Encounter Summary ---
Demographics + + + | Address | [address] | | | [place] [address] | + + + | Home Phone | | + + + | Preferred Language | Unknown | + + + | Marital Status | | + + + | Episcopal Affiliation | NRP | + + + | Race | White | + + + | Ethnic Group | Not or | + + + Author + + + | Author | [facility] | + + + | Organization | [facility] | + + + | Address | Unknown | + + + | Phone | Unavailable | + + + Support + + + + + | Name | Relationship | Address | Phone | + + + + + | ELSA GOODE | ECON | [address] | | | | | [place] [address] | | + + + + + Care Team Providers + +------+ + | Care Tobacco Wetter Name | Role | Phone | + +------+ + | Piotr Plummer MD | PCP | | + +------+ + Encounter Details +--------+ + + + + | Date | Type | Department | Care Team | Description | +--------+ + + + + | 09/18/ | Warehouse Freight Handler | Hematology/Medical | Toni Mccrary, | | | 2019 | | [facility]cology at [place] | ,PhD [address] | | | | | for Health & Healing | [place], [place] | | | | | [address] | [address] | | | | | Mailcode: [place] | [phone] | | | | | for Health and | | | | | | Healing, [address] | | | | | | [place], [place] | | | | | | [address] | | | | | | [phone] | | | +--------+ + + + [...] Rd | | | | | | [place] [address] | | +--------+ + + + + | 11/14/ | Office | Hematology & | Taz Mcneal, | | | 2019 | Visit | Oncology | FABIANA-Cindy [address] | | | | | | [address] | | | | | | [facility] [place] | | | | | | [address] | | | | | | [phone] | | | | | | | | +--------+ + + + + | 11/14/ | Appointment | Hematology & | B/C, Pod [address] | | | 2019 | | Oncology | [place], | | | | | | [place] [address] | | +--------+ + + + + [...] [place] | | | | | | [address] | | | | | | [phone] | | | | | | | | +--------+ + + + + | 11/28/ | Appointment | Hematology & | B/C, Pod [address] | | | 2019 | | Oncology | [place], | | | | | | [place] [address] | | +--------+ + + + + | 12/12/ | Clinical | | | | | 2019 | Support | | | | | | Staff | | | | +--------+ + + + + | 12/12/ | Office | Hematology & | Taz Mcneal, | | | 2018 | Visit | Oncology | PA-C [address] [facility] | | | | | | [address] | | | | | | [place], [place] | | | | | | [address] | | | | | | [phone] | | | | | | | | +--------+ + + + + | 12/12/ | Appointment | Hematology & | B/C, Pod [address] | | | 2019 | | Oncology | [place], | | | | | | [place] [address] | | +--------+ + + + + as of this encounter Visit Diagnoses Not on filein this encounter"
--- OUTSIDE RECORDS SUMMARY | ~2018-11-06 | XMS | Encounter Summary ---
Demographics + + + | Address | [address] | | | [place] [address] | + + + | Home Phone | | + + + | Preferred Language | Unknown | + + + | Marital Status | | + + + | Yazdanism Affiliation | NRP | + + + | Race | White | + + + | Ethnic Group | Not or | + + + Author + + + | Author | [facility] | + + + | Organization | [facility] | + + + | Address | Unknown | + + + | Phone | Unavailable | + + + Support + + + + + | Name | Relationship | Address | Phone | + + + + + | ELSA GOODE | ECON | [address] | | | | | [place] [address] | | + + + + + Care Team Providers + +------+ + | Care Parking Lot Chauffeur Name | Role | Phone | + +------+ + | Piotr Plummer MD | PCP | | + +------+ + Reason for Visit + + + | Reason | Comments | + + + | Appointment Question | | + + + Encounter Details +--------+ + + + + | Date | Type | Department | Care Team | Description | +--------+ + + + + | 10/22/ | Telephone | Hematology/Medical | Toni Mccrary, | Appointment Question | | 2019 | | [facility] at [place] | ,PhD [address] | | | | | for Health & Healing | Ave [place], [place] | | | | | [address] | [address] | | | | | Mailcode: [place] | [phone] | | | | | for Health and | | | | | | Healing, [address] | | | | | | [place], [place] | | | | | | [address] | | | | | | [phone] | | | +--------+ + + + [...] [address] | | | | | | [place] [address] | | +--------+ + + + + | 11/14/ | Office | Hematology & | Taz Mcneal, | | | 2018 | Visit | Oncology | PA-C [address] | | | | | | [address] | | | | | | [place] | | | | | | [address] | | | | | | [phone] | | | | | | | | +--------+ + + + + | 11/14/ | Appointment | Hematology & | B/C, Pod [address] | | | 2019 | | Oncology | [place] | | | | | | [place] [address] | | +--------+ + + + + [...] Rd | | | | | | [place] | | | | | | [address] | | | | | | [phone] | | | | | | | | +--------+ + + + + | 11/28/ | Appointment | Hematology & | B/C, Pod [address] | | | 2018 | | Oncology | [place] | | | | | | [place] [address] | | +--------+ + + + + | 12/12/ | Clinical | | | | | 2018 | Support | | | | | | Staff | | | | +--------+ + + + + | 12/12/ | Office | Hematology & | Taz Mcneal, | | | 2019 | Visit | Oncology | O[place] [address] [facility] | | | | | | [address] | | | | | | [place] | | | | | | [address] | | | | | | [phone] | | | | | | | | +--------+ + + + + | 12/12/ | Appointment | Hematology & | B/C, Pod [address] | | | 2019 | | Oncology | [place], | | | | | | [place] [address] | | +--------+ + + + + as of this encounter Visit Diagnoses Not on filein this encounter"
--- OUTSIDE RECORDS SUMMARY | ~2018-11-06 | XMS | Encounter Summary ---
Demographics + + + | Address | [address] | | | [place] [address] | + + + | Home Phone | | + + + | Preferred Language | Unknown | + + + | Marital Status | | + + + | Islam Affiliation | NRP | + + + [...] | | | | | [place] [address] | | + + + + + Care Team Providers + +------+ + | Care [place] Name | Role | Phone | + +------+ + | Piotr Plummer MD | PCP | | + +------+ + Reason for Referral PROC - Dept/Practice Procedure (Urgent) +--------+--------+ + + + + | Status | Reason | Specialty | Diagnoses / | Referred By | Referred To | | | | | Procedures | Contact | Contact | +--------+--------+ + + + + | Closed | | Gastroenterol | Diagnoses | de Dasliva, | Gas Endo | | | | ogy | Bile duct | Haresh W | Mpv [address] | | | | | obstruction | MD Lynda | [address] | | | | | Procedures | [address] | [facility] | | | | | CONSULT TO | [address] | Mailcode: | | | | | GI | Rd | [address] | | | | | PROCEDURE: | [place], [place] | [place] | | | | | ERCP / | [address] | [address] | | | | | BILIARY | Phone: | [place], | | | | | MANOMETRY | [phone] | [place] [address] | | | | | [place] ANES UPR | Fax: | Phone: | | | | | GI NDSC PX | [phone] | [phone] | | | | | NOS [place] | | Fax: | | | | | ERCP,BIOPSY | | [phone] | | | | | [place] | | | | | | | ERCP,SPHINCT | | | | | | | EROTOMY [place] | | | | | | | ERCP,W/REMOV | | | | | | | AL | | | | | | | STONE,LANG/PA | | | | | | | NCR DUCTS | | | | | | | FL ERCP | | | | | | | W/PLACE OF | | | | | | | ENDOSCOPIC | | | | | | | STENT FL | | | | | | | ERCP | | | | | | | W/REMOVAL | | | | | | | FOREIGN BODY | | | | | | | OR STENT | | | | | | | FL ERCP | | | | | | | W/REMOV AND | | | | | | | EXCHANGE OF | | | | | | | STENT FL | | | | | | | ERCP W/TRANS | | | | | | | ENDOSCOPI | | | | | | | BALLOON | | | | | | | DILATION OF | | | | | | | DUCT FL | | | | | | | ERCP | | | | | | | W/ABLATION | | | | | | | OF TUMOR | | | | | | | POLP OR | | | | | | | LESION | | | +--------+--------+ + + + + Encounter Details +--------+ + + + + | Date | Type | Department | Care Team | Description | +--------+ + + + + | 10/19/ | Staff Physical Therapist | Digestive Health | Haresh Truong | Bile duct | | 2019 | | [place] [facility] [address] | MD Lynda [address] | obstruction (Primary | | | | [address] | [address] | Dx) | | | | Mailcode: [place] | [place], [place] | | | | | [facility] and | [address] | | | | | [place] [address] | [phone] | | | | | [place], [place] | | | | | | [address] | | | | | | [phone] | | | +--------+ + + + [...] 11/14/ | Appointment | Hematology & | Christos Fast Track | | | 2018 | | Oncology | [address] | | | | | | [place] [address] | | +--------+ + + + + | 11/14/ | Office | Hematology & | Taz Mcneal, | | | 2019 | Visit | Oncology | [place] [address] | | | | | | [address] | | | | | | [place], [place] | | | | | | [address] | | | | | | [phone] | | | | | | | | +--------+ + + + + | 11/14/ | Appointment | Hematology & | B/C, Pod [address] | | | 2019 | | Oncology | [place], | | | | | | [place] [address] | | +--------+ + + + + | 11/28/ | Clinical | | | | | 2018 | Support | | | | | | Staff | | | | +--------+ + + + + | 11/28/ | Office | Hematology & | Taz Mcneal, | | | 2018 | Visit | Oncology | PA-C [address] [facility] | | | | | | [address] | | | | | | [place] | | | | | | [address] | | | | | | [phone] | | | | | | | | +--------+ + + + + | 11/28/ | Appointment | Hematology & | B/C, Pod [address] | | | 2019 | | Oncology | [place], | | | | | | [place] [address] | | +--------+ + + + + | 12/12/ | Clinical | | | | | 2018 | Support | | | | | | Staff | | | | +--------+ + + + + | 12/12/ | Office | Hematology & | Taz Mcneal, | | | 2018 | Visit | Oncology | [place] [address] [facility] | | | | | | [address] | | | | | | [place] | | | | | | [address] | | | | | | [phone] | | | | | | | | +--------+ + + + + | 12/12/ | Appointment | Hematology & | B/C, Pod [address] | | | 2019 | | Oncology | [address] [place] | | | | | | [place] [address] | | +--------+ + + + + as of this encounter Visit Diagnoses + + | Diagnosis | + + | Bile duct obstruction - Primary | + + | Obstruction of bile duct | + +"
--- OUTSIDE RECORDS SUMMARY | ~2018-11-06 | XMS | Encounter Summary ---
Demographics + + + | Address | [address] | | | [place] [address] | + + + | Home Phone | | + + + | Preferred Language | Unknown | + + + | Marital Status | | + + + | Tenriism Affiliation | NRP | + + + | Race | White | + + + | Ethnic Group | Not or | + + + Author + + + | Author | [facility] | + + + | Organization | [facility] | + + + | Address | Unknown | + + + | Phone | Unavailable | + + + Support + + + + + | Name | Relationship | Address | Phone | + + + + + | ELSA GOODE | ECON | [address] | | | | | [place] [address] | | + + + + + Care Team Providers + +------+ + | Care Barrel Scraper Name | Role | Phone | + [...] | | 2019 | | [facility]cology at [place] | ,PhD [address] | (apixaban 5 mg) | | | | for Health & Healing | Ave [place], [place] | | | | | [address] | [address] | | | | | Mailcode: [facility] | [phone] | | | | | for Health and | | | | | | Healing, [address] | | | | | | [place], [place] | | | | | | [address] | | | | | | [phone] | | | +--------+ + + + [...] [address] | | | | | | [place] [address] | | +--------+ + + + + | 11/14/ | Office | Hematology & | Taz Mcneal, | | | 2018 | Visit | Oncology | PA-C [address] | | | | | | [address] | | | | | | [place], [place] | | | | | | [address] | | | | | | [phone] | | | | | | | | +--------+ + + + + | 11/14/ | Appointment | Hematology & | B/C, Pod [address] | | | 2019 | | Oncology | [place], | | | | | | [place] [address] | | +--------+ + + + + [...] Rd | | | | | | [place] | | | | | | [address] | | | | | | [phone] | | | | | | | | +--------+ + + + + | 11/28/ | Appointment | Hematology & | B/C, Pod [address] | | | 2018 | | Oncology | [place] | | | | | | [place] [address] | | +--------+ + + + + [...] [place] | | | | | | [address] | | | | | | [phone] | | | | | | | | +--------+ + + + + | 12/12/ | Appointment | Hematology & | B/C, Pod [address] | | | 2019 | | Oncology | [place], | | | | | | [place] [address] | | +--------+ + + + + as of this encounter Visit Diagnoses Not on filein this encounter"
--- OUTSIDE RECORDS SUMMARY | ~2018-11-06 | XMS | Encounter Summary ---
Demographics + + + | Address | [address] | | | [place] [address] | + + + | Home Phone | | + + + | Preferred Language | Unknown | + + + | Marital Status | | + + + | Protestant Affiliation | NRP | + + + | Race | White | + + + | Ethnic Group | Not or | + + + Author + + + | Author | [facility] | + + + | Organization | [facility] | + + + | Address | Unknown | + + + | Phone | Unavailable | + + + Support + + + + + | Name | Relationship | Address | Phone | + + + + + | ELSA GOODE | ECON | [address] | | | | | [place] [address] | | + + + + + Care Team Providers + +------+ + | Care Chemist Instrumentation Name | Role | Phone | + [...] | +--------+ + + + + | 09/27/ | MyChart | Hematology/Medical | Dinesh Santiago, | Pain Medication | | 2019 | Encounter | [facility] | ANP,ACHPN [address] | | | | | for Health & Healing | [address] | | | | | [address] | [place], [place] | | | | | Mailcode: [facility] | [address] | | | | | for Health and | [phone] | | | | | Healing, [address] [address] | | | | | | [place], [place] | | | | | | [address] | | | | | | [phone] | | | +--------+ + + + [...] [address] | | | | | | [place] [address] | | +--------+ + + + + | 11/14/ | Office | Hematology & | Taz Mcneal, | | | 2018 | Visit | Oncology | PA-C [address] | | | | | | [address] | | | | | | [place] | | | | | | [address] | | | | | | [phone] | | | | | | | | +--------+ + + + + | 11/14/ | Appointment | Hematology & | B/C, Pod [address] | | | 2019 | | Oncology | [place] | | | | | | [place] [address] | | +--------+ + + + + [...] Rd | | | | | | [place] | | | | | | [address] | | | | | | [phone] | | | | | | | | +--------+ + + + + | 11/28/ | Appointment | Hematology & | B/C, [address] | | | 2018 | | Oncology | [place], | | | | | | [place] [address] | | +--------+ + + + + [...] | | | | | | [facility] [place] | | | | | | [address] | | | | | | [phone] | | | | | | | | +--------+ + + + + | 12/12/ | Appointment | Hematology & | B/C, [address] | | | 2019 | | Oncology | [place] | | | | | | [place] [address] | | +--------+ + + + + as of this encounter Visit Diagnoses Not on filein this encounter"
--- OUTSIDE RECORDS SUMMARY | ~2018-11-06 | XMS | Encounter Summary ---
Demographics + + + | Address | [address] | | | [place] [address] | + + + | Home Phone | | + + + | Preferred Language | Unknown | + + + | Marital Status | | + + + | Yazidism Affiliation | NRP | + + + | Race | White | + + + | Ethnic Group | Not or | + + + Author + + + | Author | [facility] | + + + | Organization | [facility] | + + + | Address | Unknown | + + + | Phone | Unavailable | + + + Support + + + + + | Name | Relationship | Address | Phone | + + + + + | ELSA GOODE | ECON | [address] | | | | | [place] [address] | | + + + + + Care Team Providers + +------+ + | Care Cargo Surveyor Name | Role | Phone | + +------+ + | Piotr Plummer MD | PCP | | + +------+ + Reason for Visit + + + | Reason | Comments | + + + | Refill Request | apixaban 5 mg oral tablet | + + + Encounter Details +--------+--------+ + + + | Date | Type | Department | Care Team | Description | +--------+--------+ + + + | 10/31/ | Refill | Hematology/Medical | Toni Mccrary, | Refill Request | | 2019 | | [facility] [place] | ,PhD [address] | (apixaban 5 mg oral | | | | for Health & Healing | [address] [place], [place] | tablet) | | | | [address] | [address] | | | | | Mailcode: [place] | [phone] | | | | | for Health and | | | | | | Healing, [address] | | | | | | [place], [place] | | | | | | [address] | | | | | | [phone] | | | +--------+--------+ + + + [...] | | | | | [place] [address] | | +--------+ + + + + | 11/14/ | Office | Hematology & | Taz Mcneal, | | | 2018 | Visit | Oncology | PA-C [address] | | | | | | [address] | | | | | | [place] | | | | | | [address] | | | | | | [phone] | | | | | | | | +--------+ + + + + | 11/14/ | Appointment | Hematology & | B/C, [address] | | | 2019 | | Oncology | [place] | | | | | | [place] [address] | | +--------+ + + + + | 11/28/ | Clinical | | | | | 2019 | Support | | | | | | Staff | | | | +--------+ + + + + | 11/28/ | Office | Hematology & | Taz Mcneal, | | | 2018 | Visit | Oncology | PA-C [address] [facility] | | | | | | [address] | | | | | | [place] | | | | | | [address] | | | | | | [phone] | | | | | | | | +--------+ + + + + | 11/28/ | Appointment | Hematology & | B/C, [address] | | | 2019 | | Oncology | [place] | | | | | | [place] [address] | | +--------+ + + + + [...] Rd | | | | | | [place], [place] | | | | | | [address] | | | | | | [phone] | | | | | | | | +--------+ + + + + | 12/12/ | Appointment | Hematology & | B/C, [address] | | | 2018 | | Oncology | [place] | | | | | | [place] [address] | | +--------+ + + + + [...]
--- OUTSIDE RECORDS SUMMARY | ~2018-11-06 | XMS | Encounter Summary ---
Demographics + + + | Address | [address] | | | [place] [address] | + + + | Home Phone | | + + + | Preferred Language | Unknown | + + + | Marital Status | | + + + | Caodaism Affiliation | NRP | + + + [...] | | | | | [place] [address] | | + + + + + Care Team Providers + +------+ + | Care Psychiatric Aide Instructor Name | Role | Phone | + [...] + + + + | 08/22/ | Documentati | Hematology/Medical | Rosemarie Galan, ISRA | Medical nutrition | | 2019 | on | [facility] | [address] | therapy | | | | [address] | [address] | | | | | Mailcode: Center | [place], [place] | | | | | [facility] and | [address] | | | | | Healing, [address] | | | | | | [place], [place] | | | | | | [address] | | | | | | [phone] | | | +--------+ + + + [...] Isra | | | | | | [place] [address] | | +--------+ + + + + | 11/14/ | Office | Hematology & | Taz Mcneal, | | | 2018 | Visit | Oncology | PA-C [address] | | | | | | [address] | | | | | | [place] | | | | | | [address] | | | | | | [phone] | | | | | | | | +--------+ + + + + | 11/14/ | Appointment | Hematology & | B/C, [address] | | | 2019 | | Oncology | [place] | | | | | | [place] [address] | | +--------+ + + + + [...] [place] | | | | | | [address] | | | | | | [phone] | | | | | | | | +--------+ + + + + | 11/28/ | Appointment | Hematology & | B/C, [address] | | | 2018 | | Oncology | [place], | | | | | | [place] [address] | | +--------+ + + + + [...] [place] | | | | | | [address] | | | | | | [phone] | | | | | | | | +--------+ + + + + | 12/12/ | Appointment | Hematology & | B/C, [address] | | | 2019 | | Oncology | [place], | | | | | | [place] [address] | | +--------+ + + + + as of this encounter Visit Diagnoses Not on filein this encounter"
--- OUTSIDE RECORDS SUMMARY | ~2018-11-06 | XMS | Encounter Summary ---
Demographics + + + | Address | [address] | | | [place] [address] | + + + | Home Phone | | + + + | Preferred Language | Unknown | + + + | Marital Status | | + + + | Temple Affiliation | NRP | + + + | Race | White | + + + | Ethnic Group | Not or | + + + Author + + + | Author | [facility] | + + + | Organization | [facility] | + + + | Address | Unknown | + + + | Phone | Unavailable | + + + Support + + + + + | Name | Relationship | Address | Phone | + + + + + | ELSA GOODE | ECON | [address] | | | | | [place] [address] | | + + + + + Care Team Providers + +------+ + | Care Central Services Tech Name | Role | Phone | + +------+ + | Piotr Plummer MD | PCP | | + +------+ + Reason for Visit + + + | Reason | Comments | + + + | Ambulatory | Gemzar + Abraxane | | Chemotherapy | | + + + Encounter Details +--------+ + + + + | Date | Type | Department | Care Team | Description | +--------+ + + + + | 08/29/ | Hospital | Hematology/Medical | A, [address] | | | 2019 | Encounter | [facility] | [address] [place], | | | | | [address] | [place] [address] | | | | | Mailcode: Center | | | | | | for Health and | | | | | | [facility], [facility] [address] | | | | | | [place], [place] | | | | | | [address] | | | | | | [phone] | | | +--------+ + + + [...] + + + | Blood Pressure | 129/84 | 08/29/2018 8:45 AM PST | + + + + | Pulse | 108 | 08/29/2018 8:45 AM PST | + + + + | Temperature | 37.2 C (98.9 F) | 08/29/2018 8:45 AM PST | + + + + | Respiratory Rate | 16 | 08/29/2018 8:45 AM PST | + + + + | Oxygen Saturation | 96% | 08/29/2018 8:45 AM PST | + + + + | Inhaled Oxygen | - | - | | Concentration | | | + + + + | Weight | 57.3 kg (126 lb 6.4 | 08/29/2018 8:45 AM PST | | | oz) | | + + + + | Height | - | - | + + + + | Body Mass Index | 22.39 | 08/29/2018 8:45 AM PST | + + + + [...] + as of this encounter Progress Notes Laz Barahona RN - 08/29/2018 8:15 AM PSTAChemotherapy Nurse Note Name: Elaine Goode Date: 08/29/2018 Physician: Hermann Allergies: Elaine has No Known Allergies. Diagnosis: Pancreatic adenocarcinoma Significant Other: Nursing Assessment: Fever: no; Diarrhea:No Constipation: Yes, Patient encouraged to increase fluids, ambulation and PRN stool softener s SOB / Cough: no; Rash: no Edema: no; Mucositis: no; Urinary: no; Neuropathy: no; S/S Bleeding: no; Severity (1=Not at all, 2=A little, 3=Quite a bit, 4=Very much) Nausea and/or Vomitin Fatigue: 2 Pain: 0 Narrative: Patient here for Gemzar + Abraxane, feeling ok. Pt had new portacath placed yest erday, site tender but looking good and healing well. CBC and CMP drawn via PAC, reviewed; C A 10-9 sent to core lab. Abraxane checked with 2 RNs per protocol, + blood return noted befo re infusion, infusion completed without incident, + blood return noted after infusion. Gemza r checked with 2 RNs per protocol, + blood return noted before infusion, infusion completed without incident, + blood return noted after infusion. PAC flushed with 20 ml NS followed by 500 units heparin and deaccessed per protocol; pt dc home at 1200. Medication infused with 250ml NS sidearm bag. Refer to MAR and Onc Lines and Transfusions doc flowsheet for treatment details. 2 mg of dexamethasone wasted due to single use vial. in this encounter Plan of Treatment +--------+ + + + + | Date | Type | Specialty | Care Team | Description | +--------+ + + + + | 11/14/ | Appointment | Hematology & | Moustapha Sher | | | 2019 | | Oncology | [address] | | | | | | [place] [address] | | +--------+ + + + + | 11/14/ | Office | Hematology & | Taz Mcneal, | | | 2018 | Visit | Oncology | [place] [address] | | | | | | [address] | | | | | | [place], [place] | | | | | | [address] | | | | | | [phone] | | | | | | | | +--------+ + + + + | 11/14/ | Appointment | Hematology & | B/C, [address] | | | 2018 | | Oncology | [place], | | | | | | [place] [address] | | +--------+ + + + + | 11/28/ | Clinical | | | | | 2018 | Support | | | | | | Staff | | | | +--------+ + + + + | 11/28/ | Office | Hematology & | Taz Mcneal, | | | 2018 | Visit | Oncology | PA-C [address] [facility] | | | | | | [address] | | | | | | [place], [place] | | | | | | [address] | | | | | | [phone] | | | | | | | | +--------+ + + + + | 11/28/ | Appointment | Hematology & | B/C, [address] | | | 2018 | | Oncology | [place], | | | | | | [place] [address] | | +--------+ + + + + | 12/12/ | Clinical | | | | | 2019 | Support | | | | | | Staff | | | | +--------+ + + + + | 12/12/ | Office | Hematology & | Taz Mcneal, | | | 2018 | Visit | Oncology | PA-C [address] [facility] | | | | | | [address] | | | | | | [facility] [place] | | | | | | [address] | | | | | | [phone] | | | | | | | | +--------+ + + + + | 12/12/ | Appointment | Hematology & | B/C, [address] | | | 2019 | | Oncology | [place], | | | | | | [place] [address] | | +--------+ + + + + as of this encounter Procedures + +--------+ + + + | Procedure Name | Priori | Date/Time | Associated Diagnosis | Comments | | | ty | | | | + +--------+ + + + | COMPLETE METABOLIC | Routin | 08/29/2018 | Pancreatic | | | PANEL - OLP | e | 9:16 AM | adenocarcinoma (HCC) | | | | | PST | | | + +--------+ + + + | CMP, POC (BMP+LFT) | Routin | 08/29/2018 | Pancreatic | Results for this | | | e | 9:16 AM | adenocarcinoma (HCC) | procedure are in the | | | | PST | | results section. | + +--------+ + + + | CBC WITH AUTO DIFF - | Routin | 08/29/2018 | Pancreatic | | | OLP | e | 9:14 AM | adenocarcinoma (HCC) | | | | | PST | | | + +--------+ + + + | CBC+DIFF,POC | Routin | 08/29/2018 | Pancreatic | Results for this | | | e | 9:14 AM | adenocarcinoma (HCC) | procedure are in the | | | | PST | | results section. | + +--------+ + + + | [facility] GI (19-9), | Routin | 08/29/2018 | Pancreatic | Results for this | | SERUM | e | 8:23 AM | adenocarcinoma (HCC) | procedure are in the | | | | PST | | results section. | + +--------+ + + + in this encounter Results CMP, POC (BMP+LFT) (08/29/2018 9:16 AM) + + + + + | Component | Value | Ref Range | Performed At | + + + + + | SODIUM, POC | 136 | 134 - 143 mmol/L | [facility] | | | | | POINT OF CARE | | | | | TESTS | + + + + + | POTASSIUM, POC | 3.8 | 3.4 - 5.0 mmol/L | [facility], | | | | | POINT OF CARE | | | | | TESTS | + + + + + | TOTAL CO2, POC | 32 (H) | 22 - 28 mmol/L | [facility] | | | | | POINT OF CARE | | | | | TESTS | + + + + + | CHLORIDE, POC | 100 | 97 - 108 mmol/L | [facility] | | | | | POINT OF CARE | | | | | TESTS | + + + + + | GLUCOSE, POC | 246 (H) | 60 - 99 mg/dL | [facility] | | | | | POINT OF CARE | | | | | TESTS | + + + + + | CALCIUM TOTAL, POC | 9.5 | 8.6 - 10.2 mg/dL | [facility], | | | | | POINT OF CARE | | | | | TESTS | + + + + + | BUN, POC | 9 | 6 - 20 mg/dL | [facility] | | | | | POINT OF CARE | | | | | TESTS | + + + + + | CREATININE, POC | <0.5 (L) | 0.6 - 1.1 mg/dL | [facility] | | | | | POINT OF CARE | | | | | TESTS | + + + + + | ALK PHOS, CMP POC | 190 (H) | 41 - 109 U/L | [facility] | | | | | POINT OF CARE | | | | | TESTS | + + + + + | ALT, CMP POC | 34 | 0 - 60 U/L | [facility] | | | | | POINT OF CARE | | | | | TESTS | + + + + + | AST, CMP POC | 29 | 0 - 41 U/L | [facility] | | | | | POINT OF CARE | | | | | TESTS | + + + + + | BILIRUBIN TOTAL, CMP | 0.5 | 0.3 - 1.2 mg/dL | [facility], | | POC | | | POINT OF CARE | | | | | TESTS | + + + + + | ALBUMIN, CMP POC | 3.2 (L) | 3.5 - 4.7 g/dL | [facility] | | | | | POINT OF CARE | | | | | TESTS | + + + + + | PROTEIN TOTAL, CMP | 6.7 | 6.4 - 8.2 g/dL | [facility], | | POC | | | POINT [...] | [facility], POINT | [address] [facility] | [place] [address] | | | OF CARE TESTS | | | | + + + + + CBC+DIFF,POC (08/29/2018 9:14 AM) + + + + + | Component | Value | Ref Range | Performed At | + + + + + | WBC POC | 5.9 | 3.5 - 10.8 10*3/uL | [facility] | | | | | POINT OF CARE | | | | | TESTS | + + + + + | RBC POC | 3.74 (L) | 4.00 - 5.20 10*6/uL | [facility] | | | | | POINT OF CARE | | | | | TESTS | + + + + + | HGB POC | 10.6 (L) | 12.0 - 16.0 g/dL | [facility] | | | | | POINT OF CARE | | | | | TESTS | + + + + + | HCT POC | 32.2 (L) | 36.0 - 46.0 % | [facility] | | | | | POINT OF CARE | | | | | TESTS | + + + + + | MCV POC | 86.1 | 80.0 - 100 fL | [facility] | | | | | POINT OF CARE | | | | | TESTS | + + + + + | MCH POC | 28.3 | 27.0 - 34.0 pg | [facility] [...] + + | RDW SD, POC | 36.1 | 35.1 - 46.3 fL | [facility] | | | | | POINT OF CARE | | | | | TESTS | + + + + + | PLT POC | 212 | 150 - 400 10*3/uL | [facility] | | | | | POINT OF CARE | | | | | TESTS | + + + + + | MPV POC | 8.6 (L) | 9.7 - 12.3 fL | [facility] | | | | | POINT OF CARE | | | | | TESTS | + + + + + | NEUTROPHIL% POC | 77.6 (H) | 50.0 - 70.0 % | [facility] | | | | | POINT OF CARE | | | | | TESTS | + + + + + | LYMPH% POC | 10.0 (L) | 18 - 42 % | [facility] | | | | | POINT OF CARE | | | | | TESTS | + + + + + | MONO %, POC | 8.8 | 3.5 - 9.0 % | [facility] | | | | | POINT OF CARE | | | | | TESTS | + + + + + | EOS %, POC | 3.4 (H) | 1.0 - 3.0 % | [facility] | | | | | POINT OF CARE | | | | | TESTS | + + + + + | BASO %, POC | 0.2 | 0.0 - 2.0 % | [facility] | | | | | POINT OF CARE | | | | | TESTS | + + + + + | NEUTROPHIL# POC | 4.6 | 1.8 - 7.7 10*3/uL | [facility] | | | | | POINT OF CARE | | | | | TESTS | + + + + + | LYMPH# POC | 0.6 (L) | 1.0 - 4.8 10*3/uL | [facility], | | | | | POINT OF CARE | | | | | TESTS | + + + + + | MONO #, POC | 0.5 | 0.1 - 0.9 10*3/uL | [facility], | | | | | POINT OF CARE | | | | | TESTS | + + + + + | EOS #, POC | 0.2 | 0.0 - 0.5 10*3/uL | [facility] [...] + + + + | [facility] | [address] [facility] [address] | [place] [address] | | | OF CARE TESTS | | | | + + + + + [facility] (), SERUM (08/29/2018 8:23 AM) + + + + + | Component | Value | Ref Range | Performed At | + + + + + | [facility] () | 8,292.6 (H) | <=37.0 U/mL | [facility] | | [facility] | | | SERVICES, CORE | + + + + + + + | Specimen | + + | Blood - Blood | + + + + + + + | Performing | Address | City/State/Zipcode | Phone Number | | Organization | | | | + + + + + | [facility] | [address] | [place] [address] | | | SERVICES, CORE | [address] | | | + + + + + in this encounter Visit Diagnoses + + | Diagnosis | + + | Pancreatic adenocarcinoma (HCC) | + + | Malignant neoplasm of pancreas, part unspecified | + + Administered Medications + +--------+ +--------+------+------+ | Medication Order | MAR | Action | Dose | Rate | Site | | | Action | Date | | | | + +--------+ +--------+------+------+ | aprepitant (CINVANTI) | Given | | 130 mg | | | | injectable emulsion 130 mg 130 | | 9 10:06 | | | | | mg, intravenous, ONCE, 1 dose, | | PST | | | | | 08/29/18 at 0945 | | | | | | + +--------+ +--------+------+------+ +---+---+ | | | +---+---+ + +-------+ +------+---+---+ | dexamethasone PF (DECADRON) | Given | | 8 mg | | | | injection 8 mg 8 mg, | | 9 09:53 | | | | | intravenous, ONCE, 1 dose, Wed | | PST | | | | | 08/29/18 at 0945 | | | | | | + +-------+ +------+---+---+ +---+---+ | | | +---+---+ + +---------+ + +---------+---+ | gemcitabine 1,600 mg in NaCl | New Bag | | 1,600 mg | 584.21 | | | 0.9 % (NS) IV 1,600 mg (rounded | | 9 11:15 | | mL/hr | | | from 1,590 mg = 1,000 mg/m2 | | PST | | | | | 1.59 m2 Treatment plan recorded | | | | | | | BSA), intravenous, Administer | | | | | | | over 30 Minutes, ONCE, 1 dose, | | | | | | | 08/29/18 at 1015, HIGH ALERT | | | | | [...] injection 200 mg 200 | | 9 10:38 | | | | | mg (rounded from 198.75 mg = 125 | | PST | | | | | mg/m2 | | | | | | | 1.59 m2 Treatment plan recorded | | | | | | | BSA), intravenous, ONCE, 1 dose, | | | | | | | 08/29/18 at 0945 | | | | | | + +---------+ +--------+ +---+ +---+---+ | | | +---+---+ + +-------+ +---------+---+---+ | palonosetron HCl (ALOXI) | Given | | 0.25 mg | | | | injection 0.25 mg 0.25 mg, | | 9 10:05 | | | | | intravenous, ONCE, 1 dose, Wed | | PST | | | | | 08/29/18 at 0945 | | | | | | + +-------+ +---------+---+---+ +---+---+ | | | +---+---+ in this encounter"
--- OUTSIDE RECORDS SUMMARY | ~2018-11-06 | XMS | Encounter Summary ---
Demographics + + + | Address | [address] | | | [place] [address] | + + + | Home Phone [...] | | | | | [place] [address] | | + + + + + Care Team Providers + +------+ + | Care Equipment Validation Engineer Name | Role | Phone | + +------+ + | Piotr Plummer MD | PCP | | + +------+ + Reason for Referral PROC - Dept/Practice Procedure (Routine) + +--------+ + + + + | Status | Reason | Specialty | Diagnoses / | Referred By | Referred To | | | | | Procedures | Contact | Contact | + +--------+ + + + + | New Request | | Interventiona | Diagnoses | Alise, | | | | | l Radiology | Pancreatic | MD Martin | | | | | | adenocarcino | [address] | | | | | | makeda ([facility]) | [address] | | | | | | Central line | [address] | | | | | | clotted, | [place], [place] | | | | | | initial | [address] | | | | | | encounter | Phone: | | | | | | (HCC) | [phone] | | | | | | Procedures | Fax: | | | | | | IR PORT | [phone] | | | | | | PROCEDURE | | | + +--------+ + + + + Encounter Details +--------+ + + + + | Date | Type | Department | Care Team | Description | +--------+ + + + + | 08/22/ | Junior Designer | [facility] | Martin Carrero, | Pancreatic | | 2019 | | [facility] [address] | [address] | adenocarcinoma (HCC) | | | | [address] | [address] | (Primary Dx); | | | | Mailcode: Center | [place], [place] | Central line | | | | for Health and | [address] | clotted, initial | | | | Healing, [address] | [phone] | encounter (HCC) | | | | [place], [place] | | | | | | [address] | | | | | | [phone] | | | +--------+ + + + [...] | | | | | [place] [address] | | +--------+ + + + + | 11/14/ | Office | Hematology & | Taz Mcneal, | | | 2018 | Visit | Oncology | PA-C [address] | | | | | | [address] | | | | | | [place], [place] | | | | | | [address] | | | | | | [phone] | | | | | | | | +--------+ + + + + | 11/14/ | Appointment | Hematology & | B/C, [address] | | | 2018 | | Oncology | [place], | | | | | | [place] [address] | | +--------+ + + + + [...] [place] | | | | | | [address] | | | | | | [phone] | | | | | | | | +--------+ + + + + | 11/28/ | Appointment | Hematology & | B/C, [address] | | | 2019 | | Oncology | [place], | | | | | | [place] [address] | | +--------+ + + + + | 12/12/ | Clinical | | | | | 2018 | Support | | | | | | Staff | | | | +--------+ + + + + | 12/12/ | Office | Hematology & | Taz Mcneal, | | | 2018 | Visit | Oncology | [place] [address] | | | | | | [address] | | | | | | [place], [place] | | | | | | [address] | | | | | | [phone] | | | | | | | | +--------+ + + + + | 12/12/ | Appointment | Hematology & | B[address] | | | 2018 | | Oncology | [place], | | | | | | [place] [address] | | +--------+ + + + + + +--------+ + + | Name | Priori | Associated Diagnoses | Order Schedule | | | ty | | | + +--------+ + + | IR PORT PROCEDURE | Routin | Pancreatic | Expected: | | | e | adenocarcinoma (HCC) | 08/22/2018, Expires: | | | | Central line | 09/20/2019 | | | | clotted, initial | | | | | encounter (HCC) | | + +--------+ + + as of this encounter Visit Diagnoses + + | Diagnosis | + + | Pancreatic adenocarcinoma (HCC) - Primary | + + | Malignant neoplasm of pancreas, part unspecified | + + | Central line clotted, initial encounter (HCC) | + +"
--- OUTSIDE RECORDS SUMMARY | ~2018-11-06 | XMS | Encounter Summary ---
Demographics + + + | Address | [address] | | | [place] [address] | + + + | Home Phone [...] | | | | | [place] [address] | | + + + + + Care Team Providers + +------+ + | Care Orthopedic Nurse Practitioner Name | Role | Phone | + +------+ + | Piotr Plummer MD | PCP | | + +------+ + Reason for Visit + + + | Reason | Comments | + + + | Follow-up visit | | + + + Encounter Details +--------+---------+ + + + | Date | Type | Department | Care Team | Description | +--------+---------+ + + + | 10/17/ | Office | Hematology/Medical | Taz Mcneal, | Pancreatic | | 2019 | Visit | Oncology at [facility] | [facility] [address] | adenocarcinoma (HCC) | | | | for [facility] | [address] | (Primary Dx); Liver | | | | [address] | [place], [place] | metastases (HCC); | | | | Mailcode: [facility] | [address] | Encounter for | | | | for Health and | [phone] | antineoplastic | | | | [facility] | | chemotherapy | | | | [place], [place] | | | | | | [address] | | | | | | [phone] | | | +--------+---------+ + + + [...] + + + | Blood Pressure | 126/61 | 10/17/2018 12:15 PM PDT | + + + + | Pulse | 90 | 10/17/2018 12:15 PM PDT | + + + + | Temperature | 37.2 C (99 F) | 10/17/2018 12:15 PM PDT | + + + + | Respiratory Rate | 14 | 10/17/2018 12:15 PM PDT | + + + + | Oxygen Saturation | 95% | 10/17/2018 12:15 PM PDT | + + + + | Inhaled Oxygen | - | - | | Concentration | | | + + + + | Weight | 53.8 kg (118 lb 8 | 10/17/2018 12:15 PM PDT | | | oz) | | + + + + | Height | - | - | + + + + | Body Mass Index | 20.99 | 10/17/2018 12:15 PM PDT | + + + + in this encounter Instructions Patient Instructions - Taz Mcneal PA-C - 10/17/2018 1:50 PM PDTMs. Rpua, It was good to see you today. [...] clinic hours please call the clinic at [phone]. Evenings, weekends and holidays please call [phone] and ask to have the oncologist child welfare consultant paged. in this encounter Progress Notes Taz Mcneal PA-C - 10/17/2018 1:50 PM PDTFormatting of this note may be different fr om the original. Elaine Goode is a 72 y.o. Female newly diagnosed metastatic pancreatic adenocarcinoma. [...] inadequately controlled pain. CT without acute findings. 10/01/18: ED for uncontrolled diarrhea, dehydration and hypoK+, C Diff negative. Interim history: Since the last visit Elaine visited the ED on 10/01/18 for a 7 day history of uncontrolled d iarrhea (7-10 BMs daily) with concurrent weight loss and abdominal pain, found to be dehydra agata and hypokalemic. She received IVF and K+ replacement and was discharged home. Elaine reports that after her last dose, she developed several days of constipation that sh e initially managed with Senna. She used Smooth Move Tea initially, then transitioned to tab s. She reports intermittent but persistent loose stools with Senna which prompted her visit to the ED. She then stopped Senna, and instead started using coconut oil for constipation. S he also started long acting morphine BID several days after her ED visit (10/03) which caused her to become more constipated. She says that daily coconut oil is somewhat effective but s he is still feeling constipated, passing BMs every 3 days or so and feels she is straining t oo much to pass them, though she denies any hard stools. She also reports new night sweats o n Monday (10/15/18) without recurrent episodes. She is not sure if she's had a fever. She repo rts persistent "chemo brain" for the past 1-2 weeks. Her primary symptoms are increasing for getfulness and balance difficulty, her family agrees. She denies any focal weakness/numbness , headaches or vision changes. After consideration she believes she has had mild dysuria for about a week, no flank pain. Review of systems: Review of systems were obtained and reviewed with the patient today. Ple ase reference the scanned questionnaire, see HPI for pertinent positives. I reviewed the entire the patient completed return visit health update and review of system s as documented in the EMR. Lab Results Component Value Date WBC 4.6 10/03/2018 RBC 3.40 (L) 10/03/2018 HCT 29.6 (L) 10/03/2018 HB 9.4 (L) 10/03/2018 MCV 87.1 10/03/2018 MCH 27.6 10/03/2018 MCHC 31.8 (L) 10/03/2018 PLT 149 (L) 10/03/2018 NEUTROPERC 78.5 (H) 10/01/2018 LYMPHPERC 15.3 (L) 10/01/2018 MONOPERC 8.2 10/03/2018 EOSPERC 8.5 (H) 10/03/2018 BASOPERC 0.7 10/03/2018 NEUTROPHILCO 3.2 10/03/2018 GLU 158 (H) 10/03/2018 BUN 5 (L) 10/03/2018 CR 0.8 10/03/2018 TP 6.6 10/03/2018 ALB 3.4 (L) 10/03/2018 CA 9.6 10/03/2018 TBILI 0.5 10/03/2018 AP 216 (H) 10/03/2018 AST 26 10/03/2018 NA 141 10/03/2018 K 3.6 10/03/2018 CL 99 10/03/2018 BICARB 30 (H) 10/03/2018 ALT 61 (H) 10/03/2018 Physical Exam: BP 126/61 | Pulse 90 | Temp 37.2 C (99 F) (Oral) | Resp 14 | Wt 53.8 kg (118 lb 8 o z) | SpO2 95% | BMI 20.99 kg/m | BSA 1.55 m General: Well developed, well nourished, adult female patient awake and alert. HEENT: + Alopecia. Anicteric sclerae. Oropharynx clear, mucous membranes moist. No sinus co ngestion, mucositis, or thrush. Chest: CTAB; No crackles, cough, wheezing, or stridor. Relaxed respiratory effort. CV: RRR, no murmurs or gallops. Abd: Soft, mild diffuse tenderness to palpation, nondistended, no ascites. Normoactive rusty l sounds. No CVA tenderness. Skin: Dry and warm. No rashes or ecchymoses. Ext: Warm, well perfused. No LE edema. Neuro: A&Ox5. CNII-XII intact. 5/5 strength of upper and lower extremities. No gait abnorma lities, no tremor. No coordination deficits. Spells WORLD backwards easily, lists days of in reverse order correctly, 3/3 short term word recall. Very poor heel to toe walk ba melany Psych: Pleasant, conversant, affect appropriate. Forgetful during conversation ECO Lab Results Component Value Date CA199 2,021.0 10/03/2018 CA199 4,451.4 09/19/2018 CA199 6,647.5 09/05/2018 Lab Results Component Value Date WBC 4.6 10/03/2018 HB 9.4 10/03/2018 HCT 29.6 10/03/2018 PLT 149 10/03/2018 MCV 87.1 10/03/2018 RDW 41.1 10/01/2018 Lab Results Component Value Date NA 141 10/03/2018 K 3.6 10/03/2018 CL 99 10/03/2018 BICARB 30 10/03/2018 BUN 5 10/03/2018 CR 0.8 10/03/2018 GLU 158 10/03/2018 CA 9.6 10/03/2018 AST 26 10/03/2018 ALT 61 10/03/2018 AP 216 10/03/2018 TBILI 0.5 10/03/2018 TP 6.6 10/03/2018 ALB 3.4 10/03/2018 ANIONGAP 10 10/01/2018 ANIONALBCOR 11 10/01/2018 CT ABDOMEN AND PELVIS W IV CONTRAST Order: [id number] Performed: 08/13/2018 13:22 Status: Final result Visible to patient: Yes (MyChart) Dx : Liver metastases (HCC); Pancreatic ad... Details Reading Physician Reading Date Result Priority MD Sacha Armas, DO 08/13/2018 08/13/2018 Narrative EXAM: CT of the abdomen and pelvis WITH intravenous contrast. HISTORY: pain s/p lap liver biopsy with pancreatic cancer r/o bleed - Female patient (72 ye ars old) status post laparoscopic liver biopsy on 08/10/2018. COMPARISON: CT abdomen pelvis from outside institution 07/12/2018. Chest CT 07/24/2018. TECHNIQUE: CT of the abdomen and pelvis with non-ionic iodinated intravenous contrast. Co sukhwinder and sagittal reformats were generated and reviewed. FINDINGS: LOWER THORAX: Small right pleural effusion with associated atelectasis is new from 07/12/20 18. Nodular 6 mm diameter subpleural opacity in the lateral right lung base (axial 12) corre sponds to a 6 mm nodule seen on 07/24/2018. LIVER: Numerous ill-defined hepatic hypodensities are consistent with metastases from patie nt's known pancreatic malignancy. For example: - 4.5 x 4.2 cm segment 5/6 lesion (axial 55), previously measured 2.7 x 3.7 cm. - 2.0 x 1.9 cm segment 8 lesion (axial 25), previously measured 1.5 x 1.3 cm. Postsurgical sequela along the periphery of the liver in segment 8 and in segment 3 are con sistent with biopsy sites, each with an associated collection of fluid and gas. A subcapsular fluid collection along the inferolateral margin of the segment 8 resection si te attenuates approximately 20 Hounsfield units may represent fluid such as bile, blood or a combination of these and measures up to 5.2 x 1.6 cm (axial 44). BILIARY: No intrahepatic biliary ductal dilatation. The gallbladder is mildly dilated, faustino uring up to 5.0 cm diameter. The common duct is dilated up to 8 mm to the level of the pancr eatic head mass PANCREAS: A large pancreatic head/neck mass measures approximately 3.8 x 3.6 cm (axial 63), previously 3.0 x 2.7 cm. The main pancreatic duct is dilated within the neck, body and tail , measuring up to 6 mm diameter. SPLEEN: Indeterminate hypodensity along the margin of the spleen appears stable from 2017. ADRENALS: Unremarkable. KIDNEYS/URETERS: Several small renal cysts are present. No hydronephrosis. PELVIC ORGANS/BLADDER: Unremarkable. GI TRACT: No abnormally dilated loops of bowel. Normal appearance of the appendix. Moderate stool burden. PERITONEUM: Multiple locules of gas along the liver and within the anti--dependent portion of the peritoneum are likely postoperative. No free air. LYMPH NODES: No lymphadenopathy. VESSELS: Mild mass effect from the patient's pancreatic mass along the superior aspect of t he superior mesenteric vein. The main portal and splenic veins are patent. BONES AND SOFT TISSUES: A convex left lumbar scoliosis. Right femoral head presumed bone is land. No acute abnormality. IMPRESSION: Since 07/12/2018, interval increase in size of primary pancreatic head lesion, with increas ed size of hepatic metastases. A pulmonary nodule is incidentally visualized, indeterminate but suspicious for metastatic disease. Sequela of recent hepatic wedge resections. A subcapsular collection in contiguity with the segment 8 resection site may represent a postoperative biloma or hematoma. These results were discussed with the surgical technician on 08/13/2018 at approximately 1:45 PM by Sacha Eastman DO. I have personally reviewed the images and, if necessary, edited the report. I agree with th e report as now presented. Final signature: Felix Almaguer MD 08/13/2018 5:07 PM Preliminary: Sacha Eastman MD 08/13/2018 2:41 PM Dictation initiated: Sacha Eastman MD 08/13/2018 1:36 PM PLAN: Metastatic pancreatic adenocarcinoma. We were planning to consent and enroll her on the fir st-line gemcitabine/Abraxane plus minus BBI 608. (Morpheus trial is closed for frontline combination immunotherapeutic arm) but unable because of urgent evaluation due post lap fabiano n. Of note, disease progression noted in short interval scan. --Recent visit to ED (10/01/18) for uncontrolled diarrhea, dehydration and hypoK+, C Diff ne gative. --Hold C3D1 Beulah/Abraxane today (10/17/2018) per Dr. Mccrary --Repeat CT today (10/17/2018) --I discussed the goals, objectives, risks, benefits, and toxicities of therapy and the pat ient wishes to proceed. --Will need close and frequent monitoring physical examinations and laboratory monitoring f or toxicities of ongoing cytotoxic chemotherapy. # Constipation: Previous diarrhea now resolved with dc of Senna - Advised pt start miralax daily for consistent dosing - Ok to continue coconut oil # Mental Status Changes - Unclear etiology, normal neuro exam besides heel/toe balance walking. - moderate suspicion that changes are secondary to possible UTI (see below) #Dysuria: UA micro, Urine screen - pending # Dehydration: 1.5L IVF NS today (10/17/2018) # Nutrition: Rosemarie Galan following - continue CREON per nutrition recs # Pain: Continue morphine ER (refilled 10/17/2018) Taz Mcneal PA-C HEMATOLOGY/MEDICAL ONCOLOGY AT [facility] [address] Mailcode: [place] [address] in this encounter Plan of Treatment +--------+ + + + + | Date | Type | Specialty | Care Team | Description | +--------+ + + + + | 11/14/ | Appointment | Hematology & | Rn, Fast Track | | | 2018 | | Oncology | [address] | | | | | | [place] [address] | | +--------+ + + + + | 11/14/ | Office | Hematology & | Taz Mcneal, | | | 2018 | Visit | Oncology | PA-C [address] | | | | | | [address] | | | | | | [place], [place] | | | | | | [address] | | | | | | [phone] | | | | | | | | +--------+ + + + + | 11/14/ | Appointment | Hematology & | B/C, Pod [address] | | 2018 | | Oncology | [place], | | | | | | [place] [address] | | +--------+ + + + + [...] Rd | | | | | | [facility], [place] | | | | | | [address] | | | | | | [phone] | | | | | | | | +--------+ + + + + | 11/28/ | Appointment | Hematology & | B/C, [address] | | | 2019 | | Oncology | [place], | | | | | | [place] [address] | | +--------+ + + + + | 12/12/ | Clinical | | | | | 2018 | Support | | | | | | Staff | | | | +--------+ + + + + | 12/12/ | Office | Hematology & | Taz Mcneal, | | | 2018 | Visit | Oncology | [facility] [address] [facility] | | | | | | [address] | | | | | | [place], [place] | | | | | | [address] | | | | | | [phone] | | | | | | | | +--------+ + + + + | 12/12/ | Appointment | Hematology & | B/C, [address] | | | 2019 | | Oncology | [address] [place], | | | | | | [place] [address] | | +--------+ + + + + as of this encounter Visit Diagnoses + + | Diagnosis | + + | Pancreatic adenocarcinoma (HCC) - Primary | + + | Malignant neoplasm of pancreas, part unspecified | + + | Liver metastases (HCC) | + + | Secondary malignant neoplasm of liver | + + | Encounter for antineoplastic chemotherapy | + +
--- OUTSIDE RECORDS SUMMARY | ~2018-11-06 | XMS | Encounter Summary ---
Demographics + + + | Address | [address] | | | [place] [address] | + + + | Home Phone | | + + + | Preferred Language | Unknown | + + + | Marital Status | | + + + | Latter-Day Affiliation | NRP | + + + | Race | White | + + + | Ethnic Group | Not or | + + + Author + + + | Author | [facility] | + + + | Organization | [facility] | + + + | Address | Unknown | + + + | Phone | Unavailable | + + + Support + + + + + | Name | Relationship | Address | Phone | + + + + + | ELSA GOODE | ECON | [address] | | | | | [place] [address] | | + + + + + Care Team Providers + +------+ + | Care Carpenter Apprentice Name | Role | Phone | + +------+ + | Piotr Plummer MD | PCP | | + +------+ + Encounter Details +--------+ + + + + | Date | Type | Department | Care Team | Description | +--------+ + + + + | 10/02/ | Labor Relations Manager | Hematology/Medical | Toni Mccrary, | | | 2019 | | [facility] | ,PhD [address] | | | | | for [facility]aling | [place], [place] | | | | | [address] | [address] | | | | | Mailcode: [facility] | [phone] | | | | | for Health and | | | | | | Healing, [address] | | | | | | [place], [place] | | | | | | [address] | | | | | | [phone] | | | +--------+ + + + [...] [address] | | | | | | [place] [address] | | +--------+ + + + + | 11/14/ | Office | Hematology & | Taz Mcneal, | | | 2019 | Visit | Oncology | [facility]IA[facility] [address] | | | | | | [address] | | | | | | [facility], [place] | | | | | | [address] | | | | | | [phone] | | | | | | | | +--------+ + + + + | 11/14/ | Appointment | Hematology & | B/C, [address] | | | 2019 | | Oncology | [place], | | | | | | [place] [address] | | +--------+ + + + + [...] [place] | | | | | | [address] | | | | | | [phone] | | | | | | | | +--------+ + + + + | 11/28/ | Appointment | Hematology & | B/C, [address] | | | 2019 | | Oncology | [place], | | | | | | [place] [address] | | +--------+ + + + + | 12/12/ | Clinical | | | | | 2019 | Support | | | | | | Staff | | | | +--------+ + + + + | 12/12/ | Office | Hematology & | Taz Mcneal, | | | 2018 | Visit | Oncology | PA-C [address] [facility] | | | | | | [address] | | | | | | [place], [place] | | | | | | [address] | | | | | | [phone] | | | | | | | | +--------+ + + + + | 12/12/ | Appointment | Hematology & | B/C, [address] | | | 2019 | | Oncology | [place], | | | | | | [place] [address] | | +--------+ + + + + as of this encounter Visit Diagnoses Not on filein this encounter"
--- OUTSIDE RECORDS SUMMARY | ~2018-11-06 | XMS | Encounter Summary ---
Demographics + + + | Address | [address] | | | [place] [address] | + + + | Home Phone | | + + + | Preferred Language | Unknown | + + + | Marital Status | | + + + | Hindu Affiliation | NRP | + + + | Race | White | + + + | Ethnic Group | Not or | + + + Author + + + | Author | [facility] | + + + | Organization | [facility] | + + + | Address | Unknown | + + + | Phone | Unavailable | + + + Support + + + + + | Name | Relationship | Address | Phone | + + + + + | ELSA GOODE | ECON | [address] | | | | | [place] [address] | | + + + + + Care Team Providers + +------+ + | Care Tool Polisher Name | Role | Phone | + +------+ + | Piotr Plummer MD | PCP | | + +------+ + Reason for Visit + + + | Reason | Comments | + + + | Lab Draw | cbc, cmp, cea | + + + Encounter Details +--------+ + + + + | Date | Type | Department | Care Team | Description | +--------+ + + + + | 09/19/ | Hospital | Hematology/Medical | Rn, Fast Track | | | 2019 | Encounter | Oncology at [facility] | [address] | | | | | [address] | [place] [address] | | | | | Mailcode: [place] | | | | | | for Health and | | | | | | Healing, [address] | | | | | | [place], [place] | | | | | | [address] | | | | | | [phone] | | | +--------+ + + + [...] | 1 | 09/13/19 | | | [id number] | meals and 1 | capsule | [...] as of this encounter Progress Notes Camelia Toussaint, JAY - 09/19/2018 1:40 PM PSTSingle lumen PAC accessed per protocol. CBC and CMP were drawn via PAC, resulted via POC and reviewed. PAC flushed per protocol and left accessed for treatment. Pt tolerated without incident. Pt discharged to provider visit. in this encounter Plan of Treatment +--------+ + + + + | Date | Type | Specialty | Care Team | Description | +--------+ + + + + | 11/14/ | Appointment | Hematology & | Moustapha Sher | | | 2019 | | Oncology | [address] | | | | | | [place] [address] | | +--------+ + + + + | 11/14/ | Office | Hematology & | Taz Mcneal, | | | 2018 | Visit | Oncology | PA-C [address] | | | | | | [address] | | | | | | [place], [place] | | | | | | [address] | | | | | | [phone] | | | | | | | | +--------+ + + + + | 11/14/ | Appointment | Hematology & | B/C, [address] | | | 2018 | | Oncology | [place] | | | | | | [place] [address] | | +--------+ + + + + [...] Rd | | | | | | [place], [place] | | | | | | [address] | | | | | | [phone] | | | | | | | | +--------+ + + + + | 11/28/ | Appointment | Hematology & | B/C, [address] | | | 2018 | | Oncology | [place], | | | | | | [place] [address] | | +--------+ + + + + [...] [place] | | | | | | [address] | | | | | | [phone] | | | | | | | | +--------+ + + + + | 12/12/ | Appointment | Hematology & | B/C, [address] | | | 2018 | | Oncology | [place], | | | | | | [place] [address] | | +--------+ + + + + as of this encounter Procedures + +--------+ + + + | Procedure Name | Priori | Date/Time | Associated Diagnosis | Comments | | | ty | | | | + +--------+ + + + | CANCER AG GI (19-9), | Routin | 10/03/2018 | Pancreatic | Results for this | | SERUM - OLP | e | 1:28 PM | adenocarcinoma (HCC) | procedure are in the | | | | PDT | | results section. | + +--------+ + + + | CANCER AG GI (19-9), | Routin | 10/03/2018 | Pancreatic | Results for this | | SERUM | e | 1:28 PM | adenocarcinoma (HCC) | procedure are in the | | | | PDT | | results section. | + +--------+ + + + | COMPLETE METABOLIC | Routin | 09/19/2018 | Pancreatic | | | PANEL - OLP | e | 2:17 PM | adenocarcinoma (HCC) | | | | | PST | | | + +--------+ + + + | CMP, POC (BMP+LFT) | Routin | 09/19/2018 | Pancreatic | Results for this | | | e | 2:17 PM | adenocarcinoma (HCC) | procedure are in the | | | | PST | | results section. | + +--------+ + + + | CBC WITH AUTO DIFF - | Routin | 09/19/2018 | Pancreatic | | | OLP | e | 2:13 PM | adenocarcinoma (HCC) | | | | | PST | | | + +--------+ + + + | CBC+DIFF,POC | Routin | 09/19/2018 | Pancreatic | Results for this | | | e | 2:13 PM | adenocarcinoma (HCC) | procedure are in the | | | | PST | | results section. | + +--------+ + + + | CANCER AG GI (19-9), | Routin | 09/19/2018 | Pancreatic | Results for this | | SERUM | e | 1:50 PM | adenocarcinoma (HCC) | procedure are in the | | | | PST | | results section. | + +--------+ + + + in this encounter Results CANCER AG GI (19-9), SERUM (10/03/2018 1:28 PM) + + + + + | Component | Value | Ref Range | Performed At | + + + + + | CANCER AG GI (19) | 2,021.0 (H) | <=37.0 U/mL | [facility] [...] [facility] | [address] | [place] [address] | | | SERVICES, [facility] | [address] | | | + + + + + CMP, POC (BMP+LFT) (09/19/2018 2:17 PM) + + + + + | Component | Value | Ref Range | Performed At | + + + + + | SODIUM, POC | 141 | 134 - 143 mmol/L | [facility] | | | | | POINT OF CARE | | | | | TESTS | + + + + + | POTASSIUM, POC | 3.9 | 3.4 - 5.0 mmol/L | [facility] [...] + + + | CHLORIDE, POC | 104 | 97 - 108 mmol/L | [facility], | | | | | POINT OF CARE | | | | | TESTS | + + + + + | GLUCOSE, POC | 94 | 60 - 99 mg/dL | [facility], | | | | | POINT OF CARE | | | | | TESTS | + + + + + | CALCIUM TOTAL, POC | 9.4 | 8.6 - 10.2 mg/dL | [facility], | | | | | POINT OF CARE | | | | | TESTS | + + + + + | BUN, POC | 10 | 6 - 20 mg/dL | [facility] [...] + | ALK PHOS, CMP POC | 308 (H) | 41 - 109 U/L | [facility], | | | | | POINT OF CARE | | | | | TESTS | + + + + + | ALT, CMP POC | 76 (H) | 0 - 60 U/L | [facility], | | | | | POINT OF CARE | | | | | TESTS | + + + + + | AST, CMP POC | 33 | 0 - 41 U/L | [facility] [...] + + | ALBUMIN, CMP POC | 3.5 | 3.5 - 4.7 g/dL | [facility], | | | | | POINT OF CARE | | | | | TESTS | + + + + + | PROTEIN TOTAL, CMP | 7.2 | 6.4 - 8.2 g/dL | [facility], | | POC | | [...] [facility], POINT | [address] [facility] | [place] [address] | | | OF CARE TESTS | | | | + + + + + CBC+DIFF,POC (09/19/2018 2:13 PM) + + + + + | Component | Value | Ref Range | Performed At | + + + + + | WBC POC | 6.8 | 3.5 - 10.8 10*3/uL | [facility], | | | | | POINT OF CARE | | | | | TESTS | + + + + + | RBC POC | 3.97 (L) | 4.00 - 5.20 10*6/uL | [facility], | | | | | POINT OF CARE | | | | | TESTS | + + + + + | HGB POC | 10.9 (L) | 12.0 - 16.0 g/dL | [facility], | | | | | POINT OF CARE | | | | | TESTS | + + + + + | HCT POC | 34.4 (L) | 36.0 - 46.0 % | [facility], | | | | | POINT OF CARE | | | | | TESTS | + + + + + | MCV POC | 86.6 | 80.0 - 100.0 fL | [facility], | | | | | POINT OF CARE | | | | | TESTS | + + + + + | MCH POC | 27.5 | 27.0 - 34.0 pg | [facility] [...] + + | RDW SD, POC | 41.9 | 35.1 - 46.3 fL | [facility], | | | | | POINT OF CARE | | | | | TESTS | + + + + + | PLT POC | 463 (H) | 150 - 400 10*3/uL | [...] + + + | NEUTROPHIL% POC | 70.0 | 50.0 - 70.0 % | [facility], | | | | | POINT OF CARE | | | | | TESTS | + + + + + | LYMPH% POC | 12.4 (L) | 18 - 42 % | [facility], | | | | | POINT OF CARE | | | | | TESTS | + + + + + | MONO %, POC | 12.0 (H) | 3.5 - 9.0 % | [facility], | | | | | POINT OF CARE | | | | | TESTS | + + + + + | EOS %, POC | 4.4 (H) | 1.0 - 3.0 % | [facility], | | | | | POINT OF CARE | | | | | TESTS | + + + + + | BASO %, POC | 1.2 | 0.0 - 2.0 % | [facility], | | | | | POINT OF CARE | | | | | TESTS | + + + + + | NEUTROPHIL# POC | 4.7 | 1.8 - 7.7 10*3/uL | [facility] [...] + + | BASO #, POC | 0.1 | 0.0 - 0.1 10*3/uL | [facility] [...] + + | [facility] | [address] [facility] | [place] [address] | | | OF CARE TESTS | | | | + + + + + CANCER AG GI (19-9), SERUM (09/19/2018 1:50 PM) + + + + + | Component | Value | Ref Range | Performed At | + + + + + | CANCER AG GI (19-9) | 4,451.4 (H) | <=37.0 U/mL | [facility] | | [facility] | | | SERVICES, [place] | + + + + + + + | Specimen | + + | Blood - Blood | + + + + + + + | Performing | Address | City/State/Zipcode | Phone Number | | Organization | | | | + + + + + | [facility] | [address] | [place] [address] | | | SERVICES, [place] | [address] | | | + + + + + in this encounter Visit Diagnoses + + | Diagnosis | + + | Pancreatic adenocarcinoma (HCC) | + + | Malignant neoplasm of pancreas, part unspecified | + +"
--- OUTSIDE RECORDS SUMMARY | ~2018-11-06 | XMS | Encounter Summary ---
Demographics + + + | Address | [address] | | | [place] [address] | + + + | Home Phone | | + + + | Preferred Language | Unknown | + + + | Marital Status | | + + + | Druze Affiliation | NRP | + + + | Race | White | + + + | Ethnic Group | Not or | + + + Author + + + | Author | [facility] | + + + | Organization | [facility] | + + + | Address | Unknown | + + + | Phone | Unavailable | + + + Support + + + + + | Name | Relationship | Address | Phone | + + + + + | ELSA GOODE | ECON | [address] | | | | | [place] [address] | | + + + + + Care Team Providers + +------+ + | Care Public Address System Operator Name | Role | Phone | + +------+ + | Piotr Plummer MD | PCP | | + +------+ + Reason for Visit + + + | Reason | Comments | + + + | Refill Request | | + + + Encounter Details +--------+--------+ + + + | Date | Type | Department | Care Team | Description | +--------+--------+ + + + | 03/14/ | Refill | Hematology/Medical | Dinesh Santiago, | Refill Request | | 2019 | | [facility] [place] | [facility] [address] | | | | | for Health & Healing | [address] | | | | | [address] | [place], [place] | | | | | Mailcode: [place] | [address] | | | | | for Health and | [phone] | | | | | Healing, [address] [address] | | | | | | [place], [place] | | | | | | [address] | | | | | | [phone] | | | +--------+--------+ + + + [...] [address] | | | | | | [place] [address] | | +--------+ + + + + | 11/14/ | Office | Hematology & | Taz Mcneal, | | | 2018 | Visit | Oncology | PA-C [address] | | | | | | [address] | | | | | | [place], [place] | | | | | | [address] | | | | | | [phone] | | | | | | | | +--------+ + + + + | 11/14/ | Appointment | Hematology & | B/C, Pod [address] | | | 2019 | | Oncology | [place] | | | | | | [place] [address] | | +--------+ + + + + [...] Rd | | | | | | [place], [place] | | | | | | [address] | | | | | | [phone] | | | | | | | | +--------+ + + + + | 11/28/ | Appointment | Hematology & | B/C, [address] | | | 2018 | | Oncology | [place], | | | | | | [place] [address] | | +--------+ + + + + [...] [place] | | | | | | [address] | | | | | | [phone] | | | | | | | | +--------+ + + + + | 12/12/ | Appointment | Hematology & | B/C, [address] | | | 2019 | | Oncology | [address] [place], | | | | | | [place] [address] | | +--------+ + + + + as of this encounter Visit Diagnoses + + | Diagnosis | + + | Pancreatic adenocarcinoma (HCC) - Primary | + + | Malignant neoplasm of pancreas, part unspecified | + + | Liver metastases (HCC) | + + | Secondary malignant neoplasm of liver | + + | Cancer related pain | + + | Neoplasm related pain (acute) (chronic) | + +"
--- OUTSIDE RECORDS SUMMARY | ~2018-11-06 | XMS | Encounter Summary ---
Demographics + + + | Address | [address] | | | [place] [address] | + + + | Home Phone | | + + + | Preferred Language | Unknown | + + + | Marital Status | | + + + | Faith Affiliation | NRP | + + + [...] | | | | | [place] [address] | | + + + + + Care Team Providers + +------+ + | Care Cnc Milling Machine Operator Name | Role | Phone | + +------+ + | Piotr Plummer MD | PCP | | + +------+ + Encounter Details +--------+ + + + + | Date | Type | Department | Care Team | Description | +--------+ + + + + | 09/18/ | Documentati | Hematology/Medical | Toni Mccrary, | | | 2019 | on | [facility] at [place] | ,PhD [address] | | | | | for Health & Healing | [place], [place] | | | | | [address] | [address] | | | | | Mailcode: [place] | [phone] | | | | | for Health and | | | | | | Healing, [address] | | | | | | [place], [place] | | | | | | [address] | | | | | | [phone] | | | +--------+ + + + [...] Rd | | | | | | [place] [address] | | +--------+ + + + + | 11/14/ | Office | Hematology & | Taz Mcneal, | | | 2019 | Visit | Oncology | FABIANA-Cindy [address] | | | | | | [address] | | | | | | [place], [place] | | | | | | [address] | | | | | | [phone] | | | | | | | | +--------+ + + + + | 11/14/ | Appointment | Hematology & | B/C, Pod [address] | | | 2018 | | Oncology | [place], | | | | | | [place] [address] | | +--------+ + + + + [...] Rd | | | | | | [facility], [place] | | | | | | [address] | | | | | | [phone] | | | | | | | | +--------+ + + + + | 11/28/ | Appointment | Hematology & | B/C, [address] | | | 2018 | | Oncology | [place], | | | | | | [place] [address] | | +--------+ + + + + | 12/12/ | Clinical | | | | | 2018 | Support | | | | | | Staff | | | | +--------+ + + + + | 12/12/ | Office | Hematology & | Taz Mcneal, | | | 2018 | Visit | Oncology | PA-C [address] [facility] | | | | | | [address] | | | | | | [place], [place] | | | | | | [address] | | | | | | [phone] | | | | | | | | +--------+ + + + + | 12/12/ | Appointment | Hematology & | B/C, [address] | | | 2019 | | Oncology | [place], | | | | | | [place] [address] | | +--------+ + + + + as of this encounter Visit Diagnoses Not on filein this encounter"
--- OUTSIDE RECORDS SUMMARY | ~2018-11-06 | XMS | Encounter Summary ---
Demographics + + + | Address | [address] | | | [place] [address] | + + + | Home Phone | | + + + | Preferred Language | Unknown | + + + | Marital Status | | + + + | Restorationist Affiliation | NRP | + + + | Race | White | + + + | Ethnic Group | Not or | + + + Author + + + | Author | [facility] | + + + | Organization | [facility] | + + + | Address | Unknown | + + + | Phone | Unavailable | + + + Support + + + + + | Name | Relationship | Address | Phone | + + + + + | ELSA GOODE | ECON | [address] | | | | | [place] [address] | | + + + + + Care Team Providers + +------+ + | Care Field Service Consultant Name | Role | Phone | + +------+ + | Piotr Plummer MD | PCP | | + +------+ + Encounter Details +--------+ + + + + | Date | Type | Department | Care Team | Description | +--------+ + + + + | 10/30/ | Law Enforcement Officer | Hematology/Medical | Toni Mccrary, | | | 2019 | | [facility]cology at [place] | ,PhD [address] | | | | | for Health & Healing | [place], [place] | | | | | [address] [facility] | [address] | | | | | Mailcode: [place] | [phone] | | | | | for Health and | | | | | | Healing, [address] | | | | | | [place], [place] | | | | | | [address] | | | | | | [phone] | | | +--------+ + + + [...] Rd | | | | | | [place] [address] | | +--------+ + + + + | 11/14/ | Office | Hematology & | Taz Mcneal, | | | 2019 | Visit | Oncology | FABIANA-Cindy [address] | | | | | | [address] | | | | | | [facility], [place] | | | | | | [address] | | | | | | [phone] | | | | | | | | +--------+ + + + + | 11/14/ | Appointment | Hematology & | B/C, [address] | | | 2019 | | Oncology | [place], | | | | | | [place] [address] | | +--------+ + + + + [...] [place] | | | | | | [address] | | | | | | [phone] | | | | | | | | +--------+ + + + + | 11/28/ | Appointment | Hematology & | B/C, [address] | | | 2019 | | Oncology | [place], | | | | | | [place] [address] | | +--------+ + + + + | 12/12/ | Clinical | | | | | 2019 | Support | | | | | | Staff | | | | +--------+ + + + + | 12/12/ | Office | Hematology & | Taz Mcneal, | | | 2018 | Visit | Oncology | PA-C [address] [facility] | | | | | | [address] | | | | | | [place], [place] | | | | | | [address] | | | | | | [phone] | | | | | | | | +--------+ + + + + | 12/12/ | Appointment | Hematology & | B/C, [address] | | | 2019 | | Oncology | [place], | | | | | | [place] [address] | | +--------+ + + + + as of this encounter Visit Diagnoses Not on filein this encounter"
--- OUTSIDE RECORDS SUMMARY | ~2018-11-06 | XMS | Encounter Summary ---
Demographics + + + | Address | [address] | | | [place] [address] | + + + | Home Phone [...] + + + | Author | [facility] | + + + | Organization | [facility] | + + + | Address | Unknown | + + + | Phone | Unavailable | + + + Support + + + + + | Name | Relationship | Address | Phone | + + + + + | ELSA GOODE | ECON | [address] | | | | | [place] [address] | | + + + + + Care Team Providers + +------+ + | Care Medical Laboratory Assistant Name | Role | Phone | + +------+ + | Piotr Plummer MD | PCP | | + +------+ + Encounter Details +--------+ + + + + | Date | Type | Department | Care Team | Description | +--------+ + + + + | 08/10/ | Procedure | 6A Intra Op [facility] | | | | 2019 | Pass | [facility] | | | | | | Admitting Desk | | | | | | Located on the 9th | | | | | | floor [address] [facility] | | | | | | [facility] | | | | | | [place], [place] | | | | | | [address] | | | +--------+ + + + [...] Rd | | | | | | [place] [address] | | +--------+ + + + + | 11/14/ | Office | Hematology & | Taz Mcneal, | | | 2018 | Visit | Oncology | O[place] [address] | | | | | | [address] | | | | | | [place] | | | | | | [address] | | | | | | [phone] | | | | | | | | +--------+ + + + + | 11/14/ | Appointment | Hematology & | B/C, Pod [address] | | | 2018 | | Oncology | [place], | | | | | | [place] [address] | | +--------+ + + + + | 11/28/ | Clinical | | | | | 2019 | Support | | | | | | Staff | | | | +--------+ + + + + | 11/28/ | Office | Hematology & | Taz Mcneal, | | | 2018 | Visit | Oncology | FABIANA-C [address] | | | | | | [address] | | | | | | [place] | | | | | | [address] | | | | | | [phone] | | | | | | | | +--------+ + + + + | 11/28/ | Appointment | Hematology & | B/C, [address] | | | 2019 | | Oncology | [place], | | | | | | [place] [address] | | +--------+ + + + + | 12/12/ | Clinical | | | | | 2018 | Support | | | | | | Staff | | | | +--------+ + + + + | 12/12/ | Office | Hematology & | Taz Mcneal, | | | 2018 | Visit | Oncology | PA-C [address] [facility] | | | | | | [address] | | | | | | [facility] | | | | | | [address] | | | | | | [phone] | | | | | | | | +--------+ + + + + | 12/12/ | Appointment | Hematology & | B/C, [address] | | | 2019 | | Oncology | [place], | | | | | | [place] [address] | | +--------+ + + + + as of this encounter Visit Diagnoses Not on filein this encounter"
--- OUTSIDE RECORDS SUMMARY | ~2018-11-06 | XMS | Encounter Summary ---
Demographics + + + | Address | [address] | | | [place] [address] | + + + | Home Phone | | + + + | Preferred Language | Unknown | + + + | Marital Status | | + + + | Advent Affiliation | NRP | + + + | Race | White | + + + | Ethnic Group | Not or | + + + Author + + + | Author | [facility] | + + + | Organization | [facility] | + + + | Address | Unknown | + + + | Phone | Unavailable | + + + Support + + + + + | Name | Relationship | Address | Phone | + + + + + | ELSA GOODE | ECON | [address] | | | | | [place] [address] | | + + + + + Care Team Providers + +------+ + | Care Justice Professor Name | Role | Phone | + [...] + + + + | 08/13/ | Hospital | Diagnostic Imaging | Toni Mccrary, | Canceled (Provider | | 2019 | Encounter | Services at [facility] | ,PhD [address] | Request) | | | | [address] [facility] | [place], [place] | | | | | [facility] | [address] | | | | | Mailcode: [address] [facility] | [phone] | | | | | [facility], | | | | | | [place] [address] | | | | | | [phone] | | | +--------+ + + + [...] [address] | | | | | | [place] [address] | | +--------+ + + + + | 11/14/ | Office | Hematology & | Taz Mcneal, | | | 2019 | Visit | Oncology | PA-C [address] | | | | | | [address] | | | | | | [place] | | | | | | [address] | | | | | | [phone] | | | | | | | | +--------+ + + + + | 11/14/ | Appointment | Hematology & | B/C, Pod [address] | | | 2019 | | Oncology | [place] | | | | | | [place] [address] | | +--------+ + + + + [...] Rd | | | | | | [place], [place] | | | | | | [address] | | | | | | [phone] | | | | | | | | +--------+ + + + + | 11/28/ | Appointment | Hematology & | B/C, Pod [address] | | | 2018 | | Oncology | [place], | | | | | | [place] [address] | | +--------+ + + + + [...] Rd | | | | | | [facility], [place] | | | | | | [address] | | | | | | [phone] | | | | | | | | +--------+ + + + + | 12/12/ | Appointment | Hematology & | B/C, [address] | | | 2018 | | Oncology | [place], | | | | | | [place] [address] | | +--------+ + + + + + +--------+ + + | Name | Priori | Associated Diagnoses | Order Schedule | | | ty | | | + +--------+ + + | RESEARCH TUMOR READING | Urgent | Pancreatic | 1 Occurrences | | | | adenocarcinoma (HCC) | starting 08/13/2018 | | | | | until 08/13/2018 | + +--------+ + + as of this encounter Visit Diagnoses + + | Diagnosis | + + | Pancreatic adenocarcinoma (HCC) | + + | Malignant neoplasm of pancreas, part unspecified | + +"
--- OUTSIDE RECORDS SUMMARY | ~2018-11-06 | XMS | Encounter Summary ---
Demographics + + + | Address | [address] | | | [place] [address] | + + + | Home Phone [...] | | | | | [place] [address] | | + + + + + Care Team Providers + +------+ + | Care Wire Photo Operator Name | Role | Phone | + +------+ + | Piotr Plummer MD | PCP | | + +------+ + Reason for Visit + + + | Reason | Comments | + + + | Genetic test | Per[facility] | + + + Encounter Details +--------+ + + + + | Date | Type | Department | Care Team | Description | +--------+ + + + + | 08/15/ | Documentati | Hematology/Medical | Toni Mccrary, | Genetic test | | 2019 | on | [facility] at [place] | ,PhD [address] | (Juliano ) | | | | for Health & Healing | [address] [place], [place] | | | | | [address] | [address] | | | | | Mailcode: [place] | [phone] | | | | | for Health and | | | | | | Healing, [address] | | | | | | [place], [place] | | | | | | [address] | | | | | | [phone] | | | +--------+ + + + [...] [address] | | | | | | [place] [address] | | +--------+ + + + + | 11/14/ | Office | Hematology & | Taz Mcneal, | | | 2018 | Visit | Oncology | PA-C [address] | | | | | | [address] | | | | | | [place] | | | | | | [address] | | | | | | [phone] | | | | | | | | +--------+ + + + + | 11/14/ | Appointment | Hematology & | B/C, Pod [address] | | | 2019 | | Oncology | [place] | | | | | | [place] [address] | | +--------+ + + + + [...] [place] | | | | | | [address] | | | | | | [phone] | | | | | | | | +--------+ + + + + | 11/28/ | Appointment | Hematology & | B/C, Pod [address] | | | 2018 | | Oncology | [place], | | | | | | [place] [address] | | +--------+ + + + + [...] [place] | | | | | | [address] | | | | | | [phone] | | | | | | | | +--------+ + + + + | 12/12/ | Appointment | Hematology & | B/C, [address] | | | 2019 | | Oncology | [place], | | | | | | [place] [address] | | +--------+ + + + + as of this encounter Visit Diagnoses Not on filein this encounter"
--- OUTSIDE RECORDS SUMMARY | ~2018-11-06 | XMS | Encounter Summary ---
Demographics + + + | Address | [address] | | | [place] [address] | + + + | Home Phone | | + + + | Preferred Language | Unknown | + + + | Marital Status | | + + + | Sikhism Affiliation | NRP | + + + [...] | | | | | [place] [address] | | + + + + + Care Team Providers + +------+ + | Care Supplier Engineer Name | Role | Phone | + +------+ + | Piotr Plummer MD | PCP | | + +------+ + Reason for Visit + + + | Reason | Comments | + + + | Lab Draw | | + + + Encounter Details +--------+ + + + + | Date | Type | Department | Care Team | Description | +--------+ + + + + | 09/27/ | Telephone | Hematology/Medical | Toni Mccrary, | Lab Draw | | 2019 | | [facility] at [place] | ,PhD [address] | | | | | for Health & Healing | [place], [place] | | | | | [address] | [address] | | | | | Mailcode: [place] | [phone] | | | | | for Health and | | | | | | Healing, [address] | | | | | | [place], [place] | | | | | | [address] | | | | | | [phone] | | | +--------+ + + + [...] [address] | | | | | | [place] [address] | | +--------+ + + + + | 11/14/ | Office | Hematology & | Taz Mcneal, | | | 2018 | Visit | Oncology | PA-C [address] | | | | | | [address] | | | | | | [place] | | | | | | [address] | | | | | | [phone] | | | | | | | | +--------+ + + + + | 11/14/ | Appointment | Hematology & | B/C, Pod [address] | | | 2019 | | Oncology | [place] | | | | | | [place] [address] | | +--------+ + + + + [...] Rd | | | | | | [place], [place] | | | | | | [address] | | | | | | [phone] | | | | | | | | +--------+ + + + + | 11/28/ | Appointment | Hematology & | B/C, Pod [address] | | 2018 | | Oncology | [place], | | | | | | [place] [address] | | +--------+ + + + + [...] Rd | | | | | | [facility], [place] | | | | | | [address] | | | | | | [phone] | | | | | | | | +--------+ + + + + | 12/12/ | Appointment | Hematology & | B/C, [address] | | | 2019 | | Oncology | [place], | | | | | | [place] [address] | | +--------+ + + + + as of this encounter Visit Diagnoses Not on filein this encounter"
--- OUTSIDE RECORDS SUMMARY | ~2018-11-06 | XMS | Encounter Summary ---
Demographics + + + | Address | [address] | | | [place] [address] | + + + | Home Phone | | + + + | Preferred Language | Unknown | + + + | Marital Status | | + + + | Gnosticism Affiliation | NRP | + + + [...] + + + + + | ELSA GOOED | ECON | [address] | | | | | [place] [address] | | + + + + + Care Team Providers + +------+ + | Care Nurse Sexual Assault Name | Role | Phone | + +------+ + | Piotr Plummer MD | PCP | | + +------+ + Reason for Visit + + + | Reason | Comments | + + + | Hydration | 1L NS | + + + Encounter Details +--------+ + + + + | Date | Type | Department | Care Team | Description | +--------+ + + + + | 10/08/ | Hospital | Hematology/Medical | A, [address] | | | 2019 | Encounter | Oncology at [facility] | [address] [place], | | | | | [address] | [place] [address] | | | | | Mailcode: [place] | | | | | | [facility] | | | | | | Healing, [address] | | | | | | [place], [place] | | | | | | [address] | | | | | | [phone] | | | +--------+ + + + [...] + + + | Blood Pressure | 127/63 | 10/08/2018 3:14 PM PDT | + + + + | Pulse | 94 | 10/08/2018 3:14 PM PDT | + + + + | Temperature | 37 C (98.6 F) | 10/08/2018 3:14 PM PDT | + + + + | Respiratory Rate | 16 | 10/08/2018 3:14 PM PDT | + + + + | Oxygen Saturation | 99% | 10/08/2018 3:14 PM PDT | + + + + | Inhaled Oxygen | - | - | | Concentration | | | + + + + | Weight | 53.3 kg (117 lb 9.6 | 10/08/2018 3:14 PM PDT | | | oz) | | + + + + | Height | - | - | + + + + | Body Mass Index | 20.83 | 10/08/2018 3:14 PM PDT | + + + + [...] | 1 | 09/13/19 | | | [id number] | meals and 1 | capsule | [...] + as of this encounter Progress Notes Gauri Rodriguez RN - 10/08/2018 3:00 PM PDTChemotherapy Nurse Note Name: Elaine Goode Date: 10/08/2018 Physician: Hermann Allergies: Elaine has No Known Allergies. Diagnosis: Pancreatic CA Significant Other: Nursing Assessment: Fever: no; Diarrhea:No Constipation: Yes, Patient encouraged to increase fluids, ambulation and bowel care regimen . SOB / Cough: no; Rash: no Edema: no; Mucositis: no; Urinary: no; Neuropathy: no; S/S Bleeding: no; Severity (1=Not at all, 2=A little, 3=Quite a bit, 4=Very much) Nausea and/or Vomitin Fatigue: 3 Pain: denies Narrative: Patient here for hydration. PAC (port a cath) accessed per protocol, no labs wer e drawn. 1L NS given IV per orders. Patient complains of nausea, so one time order for 4mg I V zofran was obtained and administered as ordered. 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 Refer to MAR and Onc Lines and [...] | | | | | [place] [address] | | +--------+ + + + + | 11/14/ | Office | Hematology & | Taz Mcneal, | | | 2018 | Visit | Oncology | PA-C [address] | | | | | | [address] | | | | | | [facility] | | | | | | [address] | | | | | | [phone] | | | | | | | | +--------+ + + + + | 11/14/ | Appointment | Hematology & | B/C, Pod [address] | | | 2019 | | Oncology | [place] | | | | | | [place] [address] | | +--------+ + + + + | 11/28/ | Clinical | | | | | 2018 | Support | | | | | | Staff | | | | +--------+ + + + + | 11/28/ | Office | Hematology & | Taz Mcneal, | | | 2018 | Visit | Oncology | [place] [address] [facility] | | | | | | [address] | | | | | | [place] | | | | | | [address] | | | | | | [phone] | | | | | | | | +--------+ + + + + | 11/28/ | Appointment | Hematology & | B/C, Pod [address] | | | 2019 | | Oncology | [place] | | | | | | [place] [address] | | +--------+ + + + + | 12/12/ | Clinical | | | | | 2018 | Support | | | | | | Staff | | | | +--------+ + + + + | 12/12/ | Office | Hematology & | Taz Mcneal, | | | 2018 | Visit | Oncology | PA-Cindy [address] [facility] | | | | | | [address] | | | | | | [place], [place] | | | | | | [address] | | | | | | [phone] | | | | | | | | +--------+ + + + + | 12/12/ | Appointment | Hematology & | B/C, Pod [address] | | | 2018 | | Oncology | [place], | | | | | | [place] [address] | | +--------+ + + + + as of this encounter Visit Diagnoses + + | Diagnosis | + + | Pancreatic adenocarcinoma (HCC) | + + | Malignant neoplasm of pancreas, part unspecified | + + Administered Medications + +--------+ +------+------+------+ | Medication Order | MAR | Action | Dose | Rate | Site | | | Action | Date | | | | + +--------+ +------+------+------+ | ondansetron (ZOFRAN) injection | Given | | 4 mg | | | | 4 mg 4 mg, intravenous, ONCE, 1 | | 9 16:34 | | | | | dose, 10/08/18 at 1700 | | PDT | | | | + +--------+ +------+------+------+ +---+---+ | | | +---+---+ + +---------+ + +---+---+ | sodium chloride 0.9 % (NS) IV | New Bag | | 1,000 mL | | | | infusion 1,000 mL, intravenous, | | 9 15:30 | | | | | ONCE, 1 dose, 10/08/18 at 1515 | | PDT | | | | + +---------+ + +---+---+ +---+---+ | | | +---+---+ in this encounter"
--- OUTSIDE RECORDS SUMMARY | ~2018-11-06 | XMS | Encounter Summary ---
Demographics + + + | Address | [address] | | | [place] [address] | + + + | Home Phone | | + + + | Preferred Language | Unknown | + + + | Marital Status | | + + + | Christianity Affiliation | NRP | + + + [...] | | | | | [place] [address] | | + + + + + Care Team Providers + +------+ + | Care Brinell Tester Name | Role | Phone | + +------+ + | Piotr Plummer MD | PCP | | + +------+ + Encounter Details +--------+ + + + + | Date | Type | Department | Care Team | Description | +--------+ + + + + | 08/15/ | Nursing Home Admissions Director | Hematology/Medical | Toni Mccrary, | | | 2019 | | [facility] [place] | ,PhD [address] | | | | | for Health & Healing | [place], [place] | | | | | [address] | [address] | | | | | Mailcode: [place] | [phone] | | | | | for Health and | | | | | | Healing, [address] | | | | | | [place], [place] | | | | | | [address] | | | | | | [phone] | | | +--------+ + + + [...] Rd | | | | | | [place] [address] | | +--------+ + + + + | 11/14/ | Office | Hematology & | Taz Mcneal, | | | 2019 | Visit | Oncology | FABIANA-Cindy [address] | | | | | | [address] | | | | | | [place], [place] | | | | | | [address] | | | | | | [phone] | | | | | | | | +--------+ + + + + | 11/14/ | Appointment | Hematology & | B/C, [address] | | | 2019 | | Oncology | [place], | | | | | | [place] [address] | | +--------+ + + + + [...] [place] | | | | | | [address] | | | | | | [phone] | | | | | | | | +--------+ + + + + | 11/28/ | Appointment | Hematology & | B/C, [address] | | | 2019 | | Oncology | [place], | | | | | | [place] [address] | | +--------+ + + + + | 12/12/ | Clinical | | | | | 2019 | Support | | | | | | Staff | | | | +--------+ + + + + | 12/12/ | Office | Hematology & | Taz Mcneal, | | | 2018 | Visit | Oncology | PA-C [address] [facility] | | | | | | [address] | | | | | | [place], [place] | | | | | | [address] | | | | | | [phone] | | | | | | | | +--------+ + + + + | 12/12/ | Appointment | Hematology & | B/C, [address] | | | 2019 | | Oncology | [place], | | | | | | [place] [address] | | +--------+ + + + + as of this encounter Visit Diagnoses Not on filein this encounter"
--- OUTSIDE RECORDS SUMMARY | ~2018-11-06 | XMS | Encounter Summary ---
Demographics + + + | Address | [address] | | | [place] [address] | + + + | Home Phone | | + + + | Preferred Language | Unknown | + + + | Marital Status | | + + + | Hoahaoism Affiliation | NRP | + + + | Race | White | + + + | Ethnic Group | Not or | + + + Author + + + | Author | [facility] | + + + | Organization | [facility] | + + + | Address | Unknown | + + + | Phone | Unavailable | + + + Support + + + + + | Name | Relationship | Address | Phone | + + + + + | ELSA GOODE | ECON | [address] | | | | | [place] [address] | | + + + + + Care Team Providers + +------+ + | Care Bus Assistant Name | Role | Phone | [...] +--------+--------+ + + + + Encounter Details +--------+------+ + + + | Date | Type | Department | Care Team | Description | +--------+------+ + + + | 08/13/ | Lab | Laboratory at [facility] | | Pancreatic | | 2019 | | [address] | | adenocarcinoma (HCC) | | | | [place], [place] | | | | | | [address] | | | | | | [phone] | | | +--------+------+ + + + Social History + + [...] | | | | | [place] [address] | | +--------+ + + + + | 11/14/ | Office | Hematology & | Taz Mcneal, | | | 2018 | Visit | Oncology | PA-C [address] | | | | | | [address] | | | | | | [place] | | | | | | [address] | | | | | | [phone] | | | | | | | | +--------+ + + + + | 11/14/ | Appointment | Hematology & | B/C, [address] | | | 2019 | | Oncology | [place] | | | | | | [place] [address] | | +--------+ + + + + | 11/28/ | Clinical | | | | | 2018 | Support | | | | | | Staff | | | | +--------+ + + + + | 11/28/ | Office | Hematology & | Taz Mcneal, | | | 2018 | Visit | Oncology | PA-Cindy [address] [facility] | | | | | | [address] | | | | | | [place] | | | | | | [address] | | | | | | [phone] | | | | | | | | +--------+ + + + + | 11/28/ | Appointment | Hematology & | B/C, [address] | | | 2019 | | Oncology | [place] | | | | | | [place] [address] | | +--------+ + + + + | 12/12/ | Clinical | | | | | 2018 | Support | | | | | | Staff | | | | +--------+ + + + + | 12/12/ | Office | Hematology & | Taz Mcneal, | | | 2018 | Visit | Oncology | PA-C [address] [facility] | | | | | | [address] | | | | | | [place], [place] | | | | | | [address] | | | | | | [phone] | | | | | | | | +--------+ + + + + | 12/12/ | Appointment | Hematology & | B/C, [address] | | | 2018 | | Oncology | [place], | | | | | | [place] [address] | | +--------+ + + + + as of this encounter Procedures + +--------+ + + + | Procedure Name | Priori | Date/Time | Associated Diagnosis | Comments | | | ty | | | | + +--------+ + + + | CBC AND AUTO DIFF | Routin | 08/13/2018 | Pancreatic | Results for this | | | e | 11:50 AM | adenocarcinoma (HCC) | procedure are in the | | | | PST | | results section. | + +--------+ + + + | CBC, WITH | Routin | 08/13/2018 | Pancreatic | Results for this | | DIFFERENTIAL | e | 11:50 AM | adenocarcinoma (HCC) | procedure are in the | | | | PST | | results section. | + +--------+ + + + | COMPLETE METABOLIC | Routin | 08/13/2018 | Pancreatic | Results for this | | SET | e | 11:50 AM | adenocarcinoma (HCC) | procedure are in the | | (NA,K,CL,CO2,BUN,CRE | | PST | | results section. | | AT,GLUC,CA,AST,ALT,B | | | | | | VANDANA TOTAL,ALK | | | | | | PHOS,ALB,PROT TOTAL) | | | | | + +--------+ + + + | CANCER AG GI (19-9), | Routin | 08/13/2018 | Pancreatic | Results for this | | SERUM | e | 11:50 AM | adenocarcinoma (HCC) | procedure are in the | | | | PST | | results section. | + +--------+ + + + | UA, DIPSTICK ONLY | Routin | 08/13/2018 | Pancreatic | Results for this | | | e | 11:43 AM | adenocarcinoma (HCC) | procedure are in the | | | | PST | | results section. | + +--------+ + + + in this encounter Results CBC AND AUTO DIFF (08/13/2018 11:50 AM) + + + + + | Component | Value | Ref Range | Performed At | + + + + + | WHITE CELL COUNT | 9.96 | 3.50 - 10.80 K/cu mm | [facility] | | | | | SERVICES, | | | | | [facility] + | | | | | [facility]AL[facility] | + + + + + | RED CELL COUNT | 4.84 | 4.00 - 5.20 M/cu mm | [facility] | | | | | SERVICES, | | | | | [facility] | [facility] + | | | | | HEALING | + + + + + | HEMOGLOBIN | 13.9 | 12.0 - 16.0 g/dL | [facility] | | | | | SERVICES, | | | | | [facility] | | | [facility] + | | | | | HEALING | + + + + + | HEMATOCRIT | 41.6 | 36.0 - 46.0 % | [facility] | | | | | SERVICES, | | | | | [facility] | | | [facility] + | | | | | HEALING | + + + + + | MCV | 86.0 | 80.0 - 100.0 fL | [facility] | | | | | SERVICES, | | | | | [facility] | [facility] + | | | | | HEALING | + + + + + | MCHC | 33.4 | 32.0 - 36.0 g/dL | [facility] | | | | | SERVICES, | | | | | [facility] | | [facility] + | | | | | HEALING | + + + + + | RDW SD | 37.2 | 35.1 - 46.3 fL | [facility] | | | | | SERVICES, | | | | | [facility] | | | [facility] + | | | | | HEALING | + + + + + | PLATELET COUNT | 303 | 150 - 400 K/cu mm | [facility] | | | | | SERVICES, | | | | | [facility] | [facility] | [facility] + | | | | | HEALING | + + + + + | MPV | 9.2 (L) | 9.7 - 12.3 fL | [facility] | | | | | SERVICES, | | | | | [facility] | [facility] | [facility] + | | | | | HEALING | + + + + + | NEUTROPHIL % | 81.4 (H) | 50.0 - 70.0 % | [facility] | | | | | SERVICES, | | | | | [facility] | | | | | [facility] + | | | | | HEALING | + + + + + | LYMPHOCYTE % | 8.8 (L) | 18.0 - 42.0 % | [facility] | | | | | SERVICES, | | | | | [facility] | | | [facility] + | | | | | HEALING | + + + + + | MONOCYTE % | 9.2 (H) | 3.5 - 9.0 % | [facility] | | | | | SERVICES, | | | | | [facility] | | | [facility] + | | | | | HEALING | + + + + + | EOS % | 0.4 (L) | 1.0 - 3.0 % | [facility] | | | | | SERVICES, | | | | | [facility] | [facility] | [facility] + | | | | | HEALING | + + + + + | BASO % | 0.2 | 0.0 - 2.0 % | [facility] | | | | | SERVICES, | | | | | [facility] | | | | | [facility] + | | | | | HEALING | + + + + + | NEUTROPHIL # | 8.10 (H) | 1.80 - 7.70 K/cu mm | [facility] | | | | | SERVICES, | | | | | [facility] | | | | | [facility] + | | | | | HEALING | + + + + + | LYMPHOCYTE # | 0.88 (L) | 1.00 - 4.80 K/cu mm | [facility] | | | | | SERVICES, | | | | | [facility] | [facility] | | | [facility] + | | | | | HEALING | + + + + + | MONOCYTE # | 0.92 (H) | 0.10 - 0.90 K/cu mm | [facility] | | | | | SERVICES, | | | | | [facility] | | | | | [facility] + | | | | | HEALING | + + + + + | EOS # | 0.04 | 0.00 - 0.50 K/cu mm | [facility] | | | | | SERVICES, | | | | | [facility] | | | | | [facility] + | | | | | HEALING | + + + + + | BASO # | 0.02 | 0.00 - 0.10 K/cu mm | [facility] | | | | | SERVICES, | | | | | [facility] | | | | | [facility] + | | | | | HEALING | + + + + + + + | Specimen | + + | Blood - Blood | + + + + + + + | Performing | Address | City/State/Zipcode | Phone Number | | Organization | | | | + + + + + | [facility] | [address] | [place] [address] | | | [facility] | | | | | HEALTH + HEALING | | | | + + + + + CANCER AG GI (), SERUM (08/13/2018 11:50 AM) + + + + + | Component | Value | Ref Range | Performed At | + + + + + | CANCER AG GI () | 8,843.5 (H) | <=37.0 U/mL | [facility] | | [facility] | | | [facility] | + + + + + + + | Specimen | + + | Blood - Blood | + + + + + + + | Performing | Address | City/State/Zipcode | Phone Number | | Organization | | | | + + + + + | [facility] | [address] | [place] [address] | | | SERVICES, CORE | [address] | | | + + + + + COMPLETE METABOLIC SET (NA,K,CL,CO2,BUN,CREAT,GLUC,CA,AST,ALT,BILI TOTAL,ALK PHOS,ALB,PROT TOTAL) (08/13/2018 11:50 AM) + +---------+ + + | Component | Value | Ref Range | Performed At | + +---------+ + + | GLUCOSE, PLASMA | 146 (H) | 70 - 99 mg/dL | [facility] | | (LAB) | | | SERVICES, | | | | | [facility] | | | | | [facility] + | | | | | HEALING | + +---------+ + + | BUN, PLASMA (LAB) | 11 | 6 - 20 mg/dL | [facility] | | | | | SERVICES, | | | | | [facility] | | | | | [facility] + | | | | | HEALING | + +---------+ + + | CREATININE PLASMA | 0.60 | 0.60 - 1.10 mg/dL | [facility] | | (LAB) | | | SERVICES, | | | | | [facility] | | | | | [facility] + | | | | | HEALING | + +---------+ + + | SODIUM, PLASMA (LAB) | 137 | 134 - 143 mmol/L | [facility] | | | | | SERVICES, | | | | | [facility] | | | | | [facility] + | | | | | HEALING | + +---------+ + + | POTASSIUM, PLASMA | 3.7 | 3.4 - 5.0 mmol/L | [facility] | | (LAB) | | | SERVICES, | | | | | [facility] | | | | | [facility] + | | | | | HEALING | + +---------+ + + | CHLORIDE, PLASMA | 94 (L) | 97 - 108 mmol/L | [facility] | | (LAB) | | | SERVICES, | | | | | [facility] | | | | | HEALTH + | | | | | HEALING | + +---------+ + + | TOTAL CO2, PLASMA | 31 (H) | 22 - 29 mmol/L | [facility] | | (LAB) | | | SERVICES, | | | | | [facility] | | | | | HEALTH + | | | | | HEALING | + +---------+ + + | CALCIUM, PLASMA | 10.1 | 8.6 - 10.2 mg/dL | [facility] | | (LAB) | | | SERVICES, | | | | | [facility] | | | | | HEALTH + | | | | | HEALING | + +---------+ + + | BILIRUBIN TOTAL | 0.8 | 0.3 - 1.2 mg/dL | [facility] | | | | | SERVICES, | | | | | [facility] | | | | | [facility] + | | | | | HEALING | + +---------+ + + | TOTAL PROTEIN, | 8.4 (H) | 6.1 - 7.9 g/dL | [facility] | | PLASMA (LAB) | | | SERVICES, | | | | | [facility] | [facility] | | | [facility] + | | | | | HEALING | + +---------+ + + | ALBUMIN, PLASMA | 3.9 | 3.5 - 4.7 g/dL | [facility] | | (LAB) | | | SERVICES, | | | | | [facility] | | | | | [facility] + | | | | | HEALING | + +---------+ + + | ALK PHOS | 132 (H) | 41 - 109 U/L | [facility] | | | | | SERVICES, | | | | | [facility] | | | | | [facility]ALTH + | | | | | HEALING | + +---------+ + + | AST(SGOT) | 31 | <=41 U/L | [facility] | | | | | SERVICES, | | | | | [facility] | | | | | HEALTH + | | | | | HEALING | + +---------+ + + | ALT (SGPT) | 38 | <=60 U/L | [facility] | | | | | SERVICES, | | | | | [facility] | | | | | [facility] + | | | | | HEALING | + +---------+ + + | ANION GAP | | 4 - 11 mmol/L | [facility] | | | | | SERVICES, | | | | | [facility] | | | | | [facility]ALTH + | | | | | HEALING | + +---------+ + + | ANION GAP(ALB | | 4 - 11 mmol/L | [facility] | | CORRECTED) | | | SERVICES, | | | | | [facility] | | | | | HEALTH + | | | | | HEALING | + +---------+ + + + + | Specimen | + + | Blood - Blood | + + + + + + + | Performing | Address | City/State/Zipcode | Phone Number | | Organization | | | | + + + + + | [facility] | [address] | [place] [address] | | | SERVICES, [place] FOR | | | | | HEALTH + HEALING | | | | + + + + + SILVESTRE CHRISTIANSEN (08/13/2018 11:43 AM) + + + + + | Component | Value | Ref Range | Performed At | + + + + + | COLOR(UR) | Alice | | [facility] | | | | | SERVICES, CORE | + + + + + | APPEARANCE | Sl.Cloudy | | [facility] | | | | | SERVICES, CORE | + + + + + | GLUCOSE(UR) | Negative | Negative, 50.0 | [facility] | | | | mg/dL | SERVICES, CORE | + + + + + | PROTEIN(LAB) | Negative | Negative, 30.0 | [facility] | | | | mg/dL | SERVICES, CORE | + + + + + | BILIRUBIN | Negative | Negative | [facility] | | | | | SERVICES, CORE | + + + + + | UROBILINOGEN | <2.0 | <2.0 mg/dL | [facility] | | | | | SERVICES, CORE | + + + + + | PH(UR) | 5.0 | 5.0 - 8.0 | [facility] | | | | | SERVICES, CORE | + + + + + | BLOOD | Negative | Negative | [facility] | | | | | SERVICES, CORE | + + + + + | KETONES | 20.0 (A) | Negative mg/dL | [facility] | | | | | SERVICES, CORE | + + + + + | NITRITES | Negative | Negative | [facility] | | | | | SERVICES, CORE | + + + + + | LEUKOCYTE ESTERASE | Negative | Negative | [facility] | | | | | SERVICES, CORE | + + + + + | SPECIFIC GRAVITY | 1.021Comment: Specific | 1.005 - 1.030 | [facility] | | | Eldon performed by | | VALERI, CORE | | | refractometry | | | + + + + + + + | Specimen | + + | Urine - Clean catch | + + + + + + + | Performing | Address | City/State/Zipcode | Phone Number | | Organization | | | | + + + + + | [facility] | [address] | [place] [address] | | | SERVICES, CORE | [address] | | | + + + + + in this encounter Visit Diagnoses + + | Diagnosis | + + | Pancreatic adenocarcinoma (HCC) | + + | Malignant neoplasm of pancreas, part unspecified | + +"
--- OUTSIDE RECORDS SUMMARY | ~2018-11-06 | XMS | Encounter Summary ---
Demographics + + + | Address | [address] | | | [place] [address] | + + + | Home Phone [...] | | | | | [place] [address] | | + + + + + Care Team Providers + +------+ + | Care Automotive Service Advisor Name | Role | Phone | [...] | 2019 | Visit | [facility] at [place] | ,PhD [address] | adenocarcinoma (HCC) | | | | for Health & Healing | [address] [place], [place] | (Primary Dx); Liver | | | | [address] | [address] | metastases (HCC); | | | | Mailcode: Center | [phone] | Encounter for | | | | for Health and | | antineoplastic | | | | Healing, [address] | | chemotherapy | | | | [place], [place] | | | | | | [address] | | | | | | [phone] | | | +--------+---------+ + + + [...] ABDOMEN AND PELVIS W IV CONTRAST Order: [id number] Performed: 08/13/2018 13:22 Status: Final result Visible [...] hematoma. These results were discussed with the medical surgical tech on 08/13/2018 at approximately 1:45 PM by [...] [address] | | | | | | [place] [address] | | +--------+ + + + + | 11/14/ | Office | Hematology & | Taz Mcneal, | | | 2018 | Visit | Oncology | PA-C [address] | | | | | | [address] | | | | | | [place] | | | | | | [address] | | | | | | [phone] | | | | | | | | +--------+ + + + + | 11/14/ | Appointment | Hematology & | B/C, [address] | | | 2018 | | Oncology | [place] | | | | | | [place] [address] | | +--------+ + + + + | 11/28/ | Clinical | | | | | 2018 | Support | | | | | | Staff | | | | +--------+ + + + + | 11/28/ | Office | Hematology & | Taz Mcneal, | | | 2018 | Visit | Oncology | PA-C [address] | | | | | | [address] | | | | | | [place] | | | | | | [address] | | | | | | [phone] | | | | | | | | +--------+ + + + + | 11/28/ | Appointment | Hematology & | B/C, [address] | | | 2019 | | Oncology | [place] | | | | | | [place] [address] | | +--------+ + + + + | 12/12/ | Clinical | | | | | 2018 | Support | | | | | | Staff | | | | +--------+ + + + + | 12/12/ | Office | Hematology & | Taz Mcneal, | | | 2018 | Visit | Oncology | [place] [address] [facility] | | | | | | [address] | | | | | | [place] | | | | | | [address] | | | | | | [phone] | | | | | | | | +--------+ + + + + | 12/12/ | Appointment | Hematology & | B/C, [address] | | | 2018 | | Oncology | [place] | | | | | | [place] [address] | | +--------+ + + + + [...]
--- OUTSIDE RECORDS SUMMARY | ~2018-11-06 | XMS | Encounter Summary ---
Demographics + + + | Address | [address] | | | [place] [address] | + + + | Home Phone | | + + + | Preferred Language | Unknown | + + + | Marital Status | | + + + | Samaritan Affiliation | NRP | + + + [...] | | | | | [place] [address] | | + + + + + Care Team Providers + +------+ + | Care Acid Strength Inspector Name | Role | Phone | + +------+ + | Piotr Plummer MD | PCP | | + +------+ + Reason for Visit + + + | Reason | Comments | + + + | Refill Request | Creon | + + + Encounter Details +--------+ + + + + | Date | Type | Department | Care Team | Description | +--------+ + + + + | 09/12/ | Telephone | Hematology/Medical | Dinesh Santiago, | Refill Request | | 2019 | | [facility] [place] | MICHELE,[facility] [address] | (Mayra) | | | | for Health & Healing | [address] | | | | | [address] | [place], [place] | | | | | Mailcode: [place] | [address] | | | | | for Health and | [phone] | | | | | Healing, [address] [address] | | | | | | [place], [place] | | | | | | [address] | | | | | | [phone] | | | +--------+ + + + [...] [address] | | | | | | [place] [address] | | +--------+ + + + + | 11/14/ | Office | Hematology & | Taz Mcneal, | | | 2018 | Visit | Oncology | PA-C [address] [facility] | | | | | | [address] | | | | | | [place] | | | | | | [address] | | | | | | [phone] | | | | | | | | +--------+ + + + + | 11/14/ | Appointment | Hematology & | B/C, [address] | | | 2019 | | Oncology | [place] | | | | | | [place] [address] | | +--------+ + + + + [...] [place] | | | | | | [address] | | | | | | [phone] | | | | | | | | +--------+ + + + + | 11/28/ | Appointment | Hematology & | B/C, [address] | | | 2018 | | Oncology | [place], | | | | | | [place] [address] | | +--------+ + + + + [...] | | | | | | [place], [place] | | | | | | [address] | | | | | | [phone] | | | | | | | | +--------+ + + + + | 12/12/ | Appointment | Hematology & | B/C, [address] | | | 2019 | | Oncology | [place], | | | | | | [place] [address] | | +--------+ + + + + as of this encounter Visit Diagnoses + + | Diagnosis | + + | Pancreatic adenocarcinoma (HCC) - Primary | + + | Malignant neoplasm of pancreas, part unspecified | + + | Liver metastases (HCC) | + + | Secondary malignant neoplasm of liver | + + | Postprandial abdominal bloating | + +"
--- OUTSIDE RECORDS SUMMARY | ~2018-11-06 | XMS | Encounter Summary ---
Demographics + + + | Address | [address] | | | [place] [address] | + + + | Home Phone | | + + + | Preferred Language | Unknown | + + + | Marital Status | | + + + | Yarsani Affiliation | NRP | + + + | Race | White | + + + | Ethnic Group | Not or | + + + Author + + + | Author | [facility] | + + + | Organization | [facility] | + + + | Address | Unknown | + + + | Phone | Unavailable | + + + Support + + + + + | Name | Relationship | Address | Phone | + + + + + | ELSA GOODE | ECON | [address] | | | | | [place] [address] | | + + + + + Care Team Providers + +------+ + | Care Exhaust Emissions Automotive Technician Name | Role | Phone | + +------+ + | Piotr Plummer MD | PCP | | + +------+ + Encounter Details +--------+ + + + + | Date | Type | Department | Care Team | Description | +--------+ + + + + | 09/06/ | MyChart | Hematology/Medical | Toni Mccrary, | RE: Elizo dosage | | 2019 | Encounter | [facility] at [place] | ,PhD [address] | | | | | for Health & Healing | [place], [place] | | | | | [address] | [address] | | | | | Mailcode: [place] | [phone] | | | | | for [facility] and | | | | | | [facility] | | | | | | [place], [place] | | | | | | [address] | | | | | | [phone] | | | +--------+ + + + [...] Rd | | | | | | [place] [address] | | +--------+ + + + + | 11/14/ | Office | Hematology & | Taz Mcneal, | | | 2018 | Visit | Oncology | [place] [address] | | | | | | [address] | | | | | | [place] | | | | | | [address] | | | | | | [phone] | | | | | | | | +--------+ + + + + | 11/14/ | Appointment | Hematology & | B/C, [address] | | | 2018 | | Oncology | [place], | | | | | | [place] [address] | | +--------+ + + + + [...] [place] | | | | | | [address] | | | | | | [phone] | | | | | | | | +--------+ + + + + | 11/28/ | Appointment | Hematology & | B/C, [address] | | | 2018 | | Oncology | [place], | | | | | | [place] [address] | | +--------+ + + + + [...] [place] | | | | | | [address] | | | | | | [phone] | | | | | | | | +--------+ + + + + | 12/12/ | Appointment | Hematology & | B/C, [address] | | | 2019 | | Oncology | [place], | | | | | | [place] [address] | | +--------+ + + + + as of this encounter Visit Diagnoses Not on filein this encounter"
--- OUTSIDE RECORDS SUMMARY | ~2018-11-06 | XMS | Encounter Summary ---
Demographics + + + | Address | [address] | | | [place] [address] | + + + | Home Phone | | + + + | Preferred Language | Unknown | + + + | Marital Status | | + + + | Anabaptist Affiliation | NRP | + + + [...] | | | | | [place] [address] | | + + + + + Care Team Providers + +------+ + | Care Display Coordinator Name | Role | Phone | + +------+ + | Piotr Plummer MD | PCP | | + +------+ + Encounter Details +--------+ + + + + | Date | Type | Department | Care Team | Description | +--------+ + + + + | 08/20/ | Plumber | Hematology/Medical | Toni Mccrary, | | | 2019 | | [facility] | ,PhD [address] | | | | | for Health & Healing | [place], [place] | | | | | [address] | [address] | | | | | Mailcode: [place] | [phone] | | | | | for Health and | | | | | | Healing, [address] | | | | | | [place], [place] | | | | | | [address] | | | | | | [phone] | | | +--------+ + + + [...] Rd | | | | | | [place] [address] | | +--------+ + + + + | 11/14/ | Office | Hematology & | Taz Mcneal, | | | 2019 | Visit | Oncology | FABIANA-Cindy [address] | | | | | | [address] | | | | | | [facility] [place] | | | | | | [address] | | | | | | [phone] | | | | | | | | +--------+ + + + + | 11/14/ | Appointment | Hematology & | B/C, Pod [address] | | | 2019 | | Oncology | [place], | | | | | | [place] [address] | | +--------+ + + + + [...] [place] | | | | | | [address] | | | | | | [phone] | | | | | | | | +--------+ + + + + | 11/28/ | Appointment | Hematology & | B/C, [address] | | | 2019 | | Oncology | [place], | | | | | | [place] [address] | | +--------+ + + + + | 12/12/ | Clinical | | | | | 2019 | Support | | | | | | Staff | | | | +--------+ + + + + | 12/12/ | Office | Hematology & | Taz Mcneal, | | | 2018 | Visit | Oncology | PA-C [address] [facility] | | | | | | [address] | | | | | | [place], [place] | | | | | | [address] | | | | | | [phone] | | | | | | | | +--------+ + + + + | 12/12/ | Appointment | Hematology & | B/C, [address] | | | 2019 | | Oncology | [place], | | | | | | [place] [address] | | +--------+ + + + + as of this encounter Visit Diagnoses Not on filein this encounter"
--- OUTSIDE RECORDS SUMMARY | ~2018-11-06 | XMS | Encounter Summary ---
Demographics + + + | Address | [address] | | | [place] [address] | + + + | Home Phone | | + + + | Preferred Language | Unknown | + + + | Marital Status | | + + + | Amish Affiliation | NRP | + + + [...] | | | | | [place] [address] | | + + + + + Care Team Providers + +------+ + | Care Correspondence Dictator Name | Role | Phone | + +------+ + | Piotr Plummer MD | PCP | | + +------+ + Encounter Details +--------+ + + + + | Date | Type | Department | Care Team | Description | +--------+ + + + + | 10/31/ | MyChart | Hematology/Medical | Taz Mcneal, | Prescriptions | | 2019 | Encounter | [facility] | O[place]A [address] | | | | | for Health & Healing | [address] | | | | | [address] | [place], [place] | | | | | Mailcode: [place] | [address] | | | | | for Health and | [phone] | | | | | [facility] | | | | | | [place], [place] | | | | | | [address] | | | | | | [phone] | | | +--------+ + + + [...] Rd | | | | | | [place] [address] | | +--------+ + + + + | 11/14/ | Office | Hematology & | Taz Mcneal, | | | 2018 | Visit | Oncology | O[place] [address] | | | | | | [address] | | | | | | [facility] | | | | | | [address] | | | | | | [phone] | | | | | | | | +--------+ + + + + | 11/14/ | Appointment | Hematology & | B/C, [address] | | | 2018 | | Oncology | [place], | | | | | | [place] [address] | | +--------+ + + + + [...] Rd | | | | | | [place], [place] | | | | | | [address] | | | | | | [phone] | | | | | | | | +--------+ + + + + | 11/28/ | Appointment | Hematology & | B/C, [address] | | | 2018 | | Oncology | [place], | | | | | | [place] [address] | | +--------+ + + + + [...] Rd | | | | | | [place], [place] | | | | | | [address] | | | | | | [phone] | | | | | | | | +--------+ + + + + | 12/12/ | Appointment | Hematology & | B/C, [address] | | | 2019 | | Oncology | [place], | | | | | | [place] [address] | | +--------+ + + + + as of this encounter Visit Diagnoses Not on filein this encounter"
--- OUTSIDE RECORDS SUMMARY | ~2018-11-06 | XMS | Encounter Summary ---
Demographics + + + | Address | [address] | | | [place] [address] | + + + | Home Phone [...] | | | | | [place] [address] | | + + + + + Care Team Providers + +------+ + | Care Graphics Production Specialist Name | Role | Phone | + +------+ + | Piotr Plummer MD | PCP | | + +------+ + Reason for Referral PROC - Dept/Practice Procedure (Routine) +--------+--------+ + + + + | Status | Reason | Specialty | Diagnoses / | Referred By | Referred To | | | | | Procedures | Contact | Contact | +--------+--------+ + + + + | Closed | | Interventiona | Diagnoses | Alise | Napoleon Gutierrez | | | | l Radiology | Pancreatic | MD Martin | [address] | | | | | adenocarcino | [address] | [facility] | | | | | makeda ([facility]) | [facility] | Road | | | | | Procedures | Rd | Mailcode: | | | | | IR PORT | [place], [place] | [address] | | | | | PROCEDURE | [address] | [place] | | | | | NE INSERT | Phone: | Hospital | | | | | GAETANO CV | [phone] | [facility] | | | | | CATH,W SQ | Fax: | [place], [place] | | | | | PORT,>7 Y/O | [phone] | [address] | | | | | | | Phone: | | | | | | | [phone] | | | | | | | Fax: | | | | | | | [phone] | +--------+--------+ + + + + Encounter Details +--------+ + + + + | Date | Type | Department | Care Team | Description | +--------+ + + + + | 08/23/ | Telephone | Digestive Health | Martin Carerro, | | | 2019 | | [facility] [address] | [address] | | | | | [address] | [address] | | | | | Mailcode: Center | [place], [place] | | | | | for Health and | [address] | | | | | Healing, [address] | [phone] | | | | | [place], [place] | | | | | | [address] | | | | | | [phone] | | | +--------+ + + + [...] 11/14/ | Appointment | Hematology & | Rn Fast Track | | | 2019 | | Oncology | [address] | | | | | | [place] [address] | | +--------+ + + + + | 11/14/ | Office | Hematology & | Taz Mcneal, | | | 2018 | Visit | Oncology | PA-C [address] | | | | | | [address] | | | | | | [place], [place] | | | | | | [address] | | | | | | [phone] | | | | | | | | +--------+ + + + + | 11/14/ | Appointment | Hematology & | B/C, Pod [address] | | | 2018 | | Oncology | [place], | | | | | | [place] [address] | | +--------+ + + + + [...] [place] | | | | | | [address] | | | | | | [phone] | | | | | | | | +--------+ + + + + | 11/28/ | Appointment | Hematology & | B/C, Pod [address] | | | 2019 | | Oncology | [place], | | | | | | [place] [address] | | +--------+ + + + + [...] Rd | | | | | | [place], [place] | | | | | | [address] | | | | | | [phone] | | | | | | | | +--------+ + + + + | 12/12/ | Appointment | Hematology & | B/C, Pod [address] | | | 2019 | | Oncology | [place], | | | | | | [place] [address] | | +--------+ + + + + as of this encounter Results IR PORT PROCEDURE (08/28/2018 9:48 AM) + + + | Narrative | Performed At | + + + | PROCEDURE: Removal of right chest port with placement of new port | [facility] | | PRIMARY PEDIATRIC ALLERGIST: Varsha Avalos MD ANGIOGRAPHY ATTENDING: | RADIOLOGY VOICE | | Maykel Santacruz M.D. DIAGNOSIS: Malfunctioning right chest port. | RECOGNITION 2 | | Pancreatic cancer INDICATION FOR PROCEDURE: This patient underwent | | | surgical placement of a right internal jugular chest port for | | | chemotherapy several weeks ago. Blood cannot be aspirated from the | | | port. A chest x-ray shows that the tip of the port is in the right | | | brachiocephalic vein. We have been asked to exchange it. SEDATION | | | Moderate sedation was supervised by the attending physician. | | | Intraservice start time: 0800 Intraservice end time: 0950 | | | Versed: 7.0 mg Fentanyl: 150 mcg FLUORO TIME: 2.9 minutes | | | DESCRIPTION OF PROCEDURE: The patient's right internal jugular vein | | | was examined with ultrasound. It was found to be distended with what | | | appeared to be acute thrombus. We elected to go ahead and place the | | | port from this approach rather than risk thrombosing the contralateral | | | jugular vein. The right neck and chest were prepped and draped in a | | | sterile fashion. Using local anesthesia, a small skin incision was | | | made low in the right neck just above the clavicle. A 21-gauge needle | | | was inserted through this incision and advanced into the right | | | internal jugular vein under fluoroscopic guidance. The guidewire | | | initially hung up at the tip of the indwelling Port-A-Cath. A 5 Kittitian | | | dilator was inserted and advanced into the right internal jugular | | | vein. A test injection showed that thrombus filled the right internal | | | jugular vein as well. The SVC was found to be widely patent, however. | | | Using local anesthesia a skin incision was made over the upper end of | | | the indwelling chest port. The port was then freed up from the | | | pocket and removed. Using local anesthesia, a subcutaneous tunnel was | | | created between the neck and chest incisions. The new catheter was | | | pulled through the tunnel. The jugular catheter was exchanged for an 8 | | | Kittitian peel-away sheath. The new catheter was advanced through the | | | sheath and into the SVC. The sheath was removed and the entry site | | | compressed until hemostasis was obtained. The new catheter was | | | positioned appropriately under fluoroscopic guidance. It was then cut | | | to an appropriate length and attached to the new single-lumen | | | SmartPort CT. The port was flushed with saline and positioned in the | | | pocket. The pocket was then closed in 2 layers. Interrupted 3-0 Vicryl | | | sutures were used to the deep layer. A 4-0 Vicryl running | | | subcuticular stitch was used to close the skin. The neck incision was | | | closed with a single Vicryl stitch. Both incisions were then covered | | | with Dermabond. The port was again accessed and flushed with | | | heparinized saline. The access needle was then removed. Sterile | | | dressings were applied to both incisions. There were no complications. | | | I was present for and personally supervised the critical portions of | | | the procedure. FINDINGS: The tip of the indwelling Port-A-Cath was | | | found to lie in the right brachiocephalic vein. Both the right | | | internal jugular and right brachiocephalic veins were found to be | | | thrombosed. The SVC was found to be patent. A completion spot film | | | shows the newly inserted catheter to be appropriately positioned with | | | its tip in the SVC. IMPRESSION: Malfunction of the indwelling port | | | was due to the tip of the port being positioned and a thrombosed | | | right brachiocephalic vein. The right internal jugular vein is also | | | thrombosed. The newly inserted port was positioned with its tip in the | | | SVC. The patient was not anticoagulated after the procedure. The | | | findings were discussed with the patient's oncologist, Toni Mccrary, | | | Marcus.[place]. He will manage the anticoagulation. I have personally | | | reviewed the images and, if necessary, edited the report. I agree with | | | the report as now presented. Final signature: Maykel Santacruz | | | 08/29/2018 6:01 PM Preliminary: Maykel Santacruz MD | | | Dictation initiated: Maykel Santacruz MD 08/29/2018 5:41 PM | | + + + + + | Procedure Note | + + | Service Account, Radiant Res In Interface - 08/29/2018 6:02 PM [facility] PROCEDURE: | | Removal of right chest port with placement of new port PRIMARY PEDIATRIC ALLERGIST: Varsha | | MD Robbie ANGIOGRAPHY ATTENDING: Maykel Santacruz M.D. DIAGNOSIS: Malfunctioning right | | chest port. Pancreatic cancer INDICATION FOR PROCEDURE: This patient underwent surgical | | placement of a right internal jugular chest port for chemotherapy several weeks ago. | | Blood cannot be aspirated from the port. A chest x-ray shows that the tip of the port is | | in the right brachiocephalic vein. We have been asked to exchange it. SEDATIONModerate | | sedation was supervised by the attending physician. Intraservice start time: 0800 | | Intraservice end time: 0950Versed: 7.0 mgFentanyl: 150 mcg FLUORO TIME: 2.9 minutes | | DESCRIPTION OF PROCEDURE: The patient's right internal jugular vein was examined with | | ultrasound. It was found to be distended with what appeared to be acute thrombus. We | | elected to go ahead and place the port from this approach rather than risk thrombosing | | the contralateral jugular vein. The right neck and chest were prepped and draped in a | | sterile fashion. Using local anesthesia, a small skin incision was made low in the right | | neck just above the clavicle. A 21-gauge needle was inserted through this incision and | | advanced into the right internal jugular vein under fluoroscopic guidance. The guidewire | | initially hung up at the tip of the indwelling Port-A-Cath. A 5 Kittitian dilator was | | inserted and advanced into the right internal jugular vein. A test injection showed that | | thrombus filled the right internal jugular vein as well. The SVC was found to be widely | | patent, however. Using local anesthesia a skin incision was made over the upper end of | | the indwelling chest port. The port was then freed up from the pocket and removed. Using | | local anesthesia, a subcutaneous tunnel was created between the neck and chest | | incisions. The new catheter was pulled through the tunnel. The jugular catheter was | | exchanged for an 8 Kittitian peel-away sheath. The new catheter was advanced through the | | sheath and into the SVC. The sheath was removed and the entry site compressed until | | hemostasis was obtained. The new catheter was positioned appropriately under | | fluoroscopic guidance. It was then cut to an appropriate length and attached to the new | | single-lumen SmartPort CT. The port was flushed with saline and positioned in the | | pocket. The pocket was then closed in 2 layers. Interrupted 3-0 Vicryl sutures were used | | to the deep layer. A 4-0 Vicryl running subcuticular stitch was used to close the skin. | | The neck incision was closed with a single Vicryl stitch. Both incisions were then | | covered with Dermabond. The port was again accessed and flushed with heparinized saline. | | The access needle was then removed. Sterile dressings were applied to both incisions. | | There were no complications. I was present for and personally supervised the critical | | portions of the procedure. FINDINGS: The tip of the indwelling Port-A-Cath was found to | | lie in the right brachiocephalic vein. Both the right internal jugular and right | | brachiocephalic veins were found to be thrombosed. The SVC was found to be patent. A | | completion spot film shows the newly inserted catheter to be appropriately positioned | | with its tip in the SVC. IMPRESSION: Malfunction of the indwelling port was due to the | | tip of the port being positioned and a thrombosed right brachiocephalic vein. The right | | internal jugular vein is also thrombosed. The newly inserted port was positioned with | | its tip in the SVC. The patient was not anticoagulated after the procedure. The findings | | were discussed with the patient's oncologist, Toni Mccrary M.D. He will manage the | | anticoagulation. I have personally reviewed the images and, if necessary, edited the | | report. I agree with the report as now presented. Final signature: Maykel Santacruz MD | | 08/29/2018 6:01 PM Preliminary: Maykel Santacruz MD Dictation initiated: Joselito Edwards MD 08/29/2018 5:41 PM | + + + +---------+ + [...]
--- OUTSIDE RECORDS SUMMARY | ~2018-11-06 | XMS | Encounter Summary ---
Demographics + + + | Address | [address] | | | [place] [address] | + + + | Home Phone | | + + + | Preferred Language | Unknown | + + + | Marital Status | | + + + | Worship Affiliation | NRP | + + + | Race | White | + + + | Ethnic Group | Not or | + + + Author + + + | Author | [facility] | + + + | Organization | [facility] | + + + | Address | Unknown | + + + | Phone | Unavailable | + + + Support + + + + + | Name | Relationship | Address | Phone | + + + + + | ELSA GOODE | ECON | [address] | | | | | [place] [address] | | + + + + + Care Team Providers + +------+ + | Care Support Associate Name | Role | Phone | + [...] | 10/25/ | Telephone | Hematology/Medical | [address] | Medical nutrition | | 2019 | | [facility]cology at [facility] | [address] | therapy | | | | [address] | [address] | | | | | Mailcode: Center | [place], [place] | | | | | [facility] and | [address] | | | | | Healing, [facility] | | | | | | [place], [place] | | | | | | [address] | | | | | | [phone] | | | +--------+ + + + [...] | | | | | [place] [address] | | +--------+ + + + + | 11/14/ | Office | Hematology & | Taz Mcneal, | | | 2018 | Visit | Oncology | PA-C [address] | | | | | | [address] | | | | | | [place] | | | | | | [address] | | | | | | [phone] | | | | | | | | +--------+ + + + + | 11/14/ | Appointment | Hematology & | B/C, Pod [address] | | | 2019 | | Oncology | [place] | | | | | | [place] [address] | | +--------+ + + + + [...] Rd | | | | | | [place], [place] | | | | | | [address] | | | | | | [phone] | | | | | | | | +--------+ + + + + | 11/28/ | Appointment | Hematology & | B/C, Pod [address] | | | 2019 | | Oncology | [place], | | | | | | [place] [address] | | +--------+ + + + + [...] [place] | | | | | | [address] | | | | | | [phone] | | | | | | | | +--------+ + + + + | 12/12/ | Appointment | Hematology & | B/C, Pod [address] | | | 2019 | | Oncology | [place], | | | | | | [place] [address] | | +--------+ + + + + as of this encounter Visit Diagnoses Not on filein this encounter"
--- OUTSIDE RECORDS SUMMARY | ~2018-11-06 | XMS | Encounter Summary ---
Demographics + + + | Address | [address] | | | [place] [address] | + + + | Home Phone [...] | | | | | [place] [address] | | + + + + + Care Team Providers + +------+ + | Care Bag Bailer Name | Role | Phone | + +------+ + | Piotr Plummer MD | PCP | | + +------+ + Reason for Visit + + + | Reason | Comments | + + + | Medication | | | management | | + + + | Test Results | biopsy. F1? | + + + Encounter Details +--------+ + + + + | Date | Type | Department | Care Team | Description | +--------+ + + + + | 08/10/ | Telephone | Hematology/Medical | HermannToni, | Medication | | 2019 | | [facility] | ,PhD [address] | management; Test | | | | for Health & Healing | [address] [place], [place] | Results (biopsy. | | | | [address] | [address] | F1?) | | | | Mailcode: [facility] | [phone] | | | | | for Health and | | | | | | Healing, [address] | | | | | | [place], [place] | | | | | | [address] | | | | | | [phone] | | | +--------+ + + + [...] | | | | | [place] [address] | | +--------+ + + + + | 11/14/ | Office | Hematology & | Taz Mcneal, | | | 2018 | Visit | Oncology | PA-C [address] | | | | | | [address] | | | | | | [place] | | | | | | [address] | | | | | | [phone] | | | | | | | | +--------+ + + + + | 11/14/ | Appointment | Hematology & | B/C, Pod [address] | | | 2019 | | Oncology | [place] | | | | | | [place] [address] | | +--------+ + + + + | 11/28/ | Clinical | | | | | 2018 | Support | | | | | | Staff | | | | +--------+ + + + + | 11/28/ | Office | Hematology & | Taz Mcneal, | | | 2018 | Visit | Oncology | PA-C [address] [facility] | | | | | | [address] | | | | | | [place] | | | | | | [address] | | | | | | [phone] | | | | | | | | +--------+ + + + + | 11/28/ | Appointment | Hematology & | B/C, [address] | | | 2019 | | Oncology | [place] | | | | | | [place] [address] | | +--------+ + + + + [...] Rd | | | | | | [place], [place] | | | | | | [address] | | | | | | [phone] | | | | | | | | +--------+ + + + + | 12/12/ | Appointment | Hematology & | B/C, [address] | | | 2018 | | Oncology | [place] | | | | | | [place] [address] | | +--------+ + + + + as of this encounter Visit Diagnoses Not on filein this encounter"
--- OUTSIDE RECORDS SUMMARY | ~2018-11-06 | XMS | Encounter Summary ---
Demographics + + + | Address | [address] | | | [place] [address] | + + + | Home Phone [...] | | | | | [place] [address] | | + + + + + Care Team Providers + +------+ + | Care Nuclear Chemistry Technician Name | Role | Phone | [...] | +--------+ + + + + | 08/08/ | Telephone | Hematology | Toni Mccrary, | Research Study | | 2019 | | Oncology Study [address] | ,PhD [address] | | | | | [address] | [place] [employer], [place] | | | | | Mailcode: CH7[facility] | [address] | | | | | [facility] | [phone] | | | | | and [facility] | | | | | | Floor [employer], [place] | | | | | | [address] | | | | | | [phone] | | | +--------+ + + + [...] [address] | | | | | | [place] [address] | | +--------+ + + + + | 11/14/ | Office | Hematology & | Taz Mcneal, | | | 2018 | Visit | Oncology | PA-C [address] | | | | | | [address] | | | | | | [place], [place] | | | | | | [address] | | | | | | [phone] | | | | | | | | +--------+ + + + + | 11/14/ | Appointment | Hematology & | B/C, Pod [address] | | | 2019 | | Oncology | [place] | | | | | | [place] [address] | | +--------+ + + + + [...] Rd | | | | | | [place], [place] | | | | | | [address] | | | | | | [phone] | | | | | | | | +--------+ + + + + | 11/28/ | Appointment | Hematology & | B/C, [address] | | | 2018 | | Oncology | [place], | | | | | | [place] [address] | | +--------+ + + + + [...] [place] | | | | | | [address] | | | | | | [phone] | | | | | | | | +--------+ + + + + | 12/12/ | Appointment | Hematology & | B/C, [address] | | | 2019 | | Oncology | [place], | | | | | | [place] [address] | | +--------+ + + + + as of this encounter Visit Diagnoses Not on filein this encounter"
--- OUTSIDE RECORDS SUMMARY | ~2018-11-06 | XMS | Encounter Summary ---
Demographics + + + | Address | [address] | | | [place] [address] | + + + | Home Phone | | + + + | Preferred Language | Unknown | + + + | Marital Status | | + + + | Denominational Affiliation | NRP | + + + | Race | White | + + + | Ethnic Group | Not or | + + + Author + + + | Author | [facility] | + + + | Organization | [facility] | + + + | Address | Unknown | + + + | Phone | Unavailable | + + + Support + + + + + | Name | Relationship | Address | Phone | + + + + + | ELSA GOODE | ECON | [address] | | | | | [place] [address] | | + + + + + Care Team Providers + +------+ + | Care Binder Fixer Name | Role | Phone | + [...] | | 2019 | | [facility] at [place] | ,PhD [address] | | | | | for Health & Healing | [address] [place], [place] | | | | | [address] | [address] | | | | | Mailcode: [place] | [phone] | | | | | for Health and | | | | | | Healing, [address] | | | | | | [place], [place] | | | | | | [address] | | | | | | [phone] | | | +--------+ + + + [...] [address] | | | | | | [place] [address] | | +--------+ + + + + | 11/14/ | Office | Hematology & | Taz Mcneal, | | | 2018 | Visit | Oncology | PA-C [address] | | | | | | [address] | | | | | | [place] | | | | | | [address] | | | | | | [phone] | | | | | | | | +--------+ + + + + | 11/14/ | Appointment | Hematology & | B/C, Pod [address] | | | 2019 | | Oncology | [place] | | | | | | [place] [address] | | +--------+ + + + + [...] Rd | | | | | | [place] | | | | | | [address] | | | | | | [phone] | | | | | | | | +--------+ + + + + | 11/28/ | Appointment | Hematology & | B/C, Pod [address] | | | 2018 | | Oncology | [place] | | | | | | [place] [address] | | +--------+ + + + + | 12/12/ | Clinical | | | | | 2018 | Support | | | | | | Staff | | | | +--------+ + + + + | 12/12/ | Office | Hematology & | Taz Mcneal, | | | 2019 | Visit | Oncology | OLYA [address] [facility] | | | | | | [address] | | | | | | [place] | | | | | | [address] | | | | | | [phone] | | | | | | | | +--------+ + + + + | 12/12/ | Appointment | Hematology & | B/C, Pod [address] | | | 2019 | | Oncology | [place], | | | | | | [place] [address] | | +--------+ + + + + as of this encounter Visit Diagnoses Not on filein this encounter"
--- OUTSIDE RECORDS SUMMARY | ~2018-11-06 | XMS | Encounter Summary ---
Demographics + + + | Address | [address] | | | [place] [address] | + + + | Home Phone [...] | | | | | [place] [address] | | + + + + + Care Team Providers + +------+ + | Care Competitive Intelligence Analyst Name | Role | Phone | [...] | | | | Mailcode: Center | [place], [place] | | | | | [facility] and | [address] | | | | | Healing, [facility] | | | | | | [place], [place] | | | | | | [address] | | | | | | [phone] | | | +--------+ + + + [...] | | | | | [place] [address] | | +--------+ + + + + | 11/14/ | Office | Hematology & | Taz Mcneal, | | | 2018 | Visit | Oncology | PA-C [address] | | | | | | [address] | | | | | | [place] | | | | | | [address] | | | | | | [phone] | | | | | | | | +--------+ + + + + | 11/14/ | Appointment | Hematology & | B/C, Pod [address] | | | 2019 | | Oncology | [place] | | | | | | [place] [address] | | +--------+ + + + + [...] Rd | | | | | | [place], [place] | | | | | | [address] | | | | | | [phone] | | | | | | | | +--------+ + + + + | 11/28/ | Appointment | Hematology & | B/C, Pod [address] | | | 2019 | | Oncology | [place], | | | | | | [place] [address] | | +--------+ + + + + [...] [place] | | | | | | [address] | | | | | | [phone] | | | | | | | | +--------+ + + + + | 12/12/ | Appointment | Hematology & | B/C, Pod [address] | | | 2019 | | Oncology | [place], | | | | | | [place] [address] | | +--------+ + + + + as of this encounter Visit Diagnoses Not on filein this encounter"
--- OUTSIDE RECORDS SUMMARY | ~2018-11-06 | XMS | Encounter Summary ---
Demographics + + + | Address | [address] | | | [place] [address] | + + + | Home Phone [...] + + + | Author | [facility] | + + + | Organization | [facility] | + + + | Address | Unknown | + + + | Phone | Unavailable | + + + Support + + + + + | Name | Relationship | Address | Phone | + + + + + | ELSA GOODE | ECON | [address] | | | | | [place] [address] | | + + + + + Care Team Providers + +------+ + | Care Surgical Clinical Reviewer Name | Role | Phone | + +------+ + | Piotr Plummer MD | PCP | | + +------+ + Reason for Visit + + + | Reason | Comments | + + + | Telephone follow-up | | + + + Encounter Details +--------+ + + + + | Date | Type | Department | Care Team | Description | +--------+ + + + + | 08/14/ | Telephone | Hematology/Medical | Toni Mccrary, | Telephone follow-up | | 2019 | | [facility]cology at [place] | ,PhD [address] | | | | | for Health & Healing | [address] [place], [place] | | | | | [address] | [address] | | | | | Mailcode: [place] | [phone] | | | | | for Health and | | | | | | Healing, [address] | | | | | | [place], [place] | | | | | | [address] | | | | | | [phone] | | | +--------+ + + + [...] [address] | | | | | | [place] [address] | | +--------+ + + + + | 11/14/ | Office | Hematology & | Taz Mcneal, | | | 2018 | Visit | Oncology | PA-C [address] | | | | | | [address] | | | | | | [place] | | | | | | [address] | | | | | | [phone] | | | | | | | | +--------+ + + + + | 11/14/ | Appointment | Hematology & | B/C, Pod [address] | | | 2019 | | Oncology | [place] | | | | | | [place] [address] | | +--------+ + + + + | 11/28/ | Clinical | | | | | 2019 | Support | | | | | | Staff | | | | +--------+ + + + + | 11/28/ | Office | Hematology & | Taz Mcneal, | | | 2018 | Visit | Oncology | OLYA [address] [facility] | | | | | | [address] | | | | | | [place] | | | | | | [address] | | | | | | [phone] | | | | | | | | +--------+ + + + + | 11/28/ | Appointment | Hematology & | B/C, Pod [address] | | | 2018 | | Oncology | [place] | | | | | | [place] [address] | | +--------+ + + + + | 12/12/ | Clinical | | | | | 2019 | Support | | | | | | Staff | | | | +--------+ + + + + | 12/12/ | Office | Hematology & | aTz Mcneal, | | | 2018 | Visit | Oncology | PA-C [address] [facility] | | | | | | [address] | | | | | | [place], [place] | | | | | | [address] | | | | | | [phone] | | | | | | | | +--------+ + + + + | 12/12/ | Appointment | Hematology & | B/C, Pod [address] | | | 2018 | | Oncology | [place], | | | | | | [place] [address] | | +--------+ + + + + as of this encounter Visit Diagnoses + + | Diagnosis | + + | Pancreatic adenocarcinoma (HCC) - Primary | + + | Malignant neoplasm of pancreas, part unspecified | + + | Liver metastases (HCC) | + + | Secondary malignant neoplasm of liver | + + | Nausea | + + | Nausea alone | + +"
--- OUTSIDE RECORDS SUMMARY | ~2018-11-06 | XMS | Encounter Summary ---
Demographics + + + | Address | [address] | | | [place] [address] | + + + | Home Phone [...] | | | | | [place] [address] | | + + + + + Care Team Providers + +------+ + | Care Audio/Video Engineer Name | Role | Phone | [...] | | | Zach Farley | [place], [place] | | | | | Mailcode: CH7 | [address] | | | | | [facility] | [phone] | | | | | and [facility], 7th | | | | | | Floor [place], [place] | | | | | | [address] | | | | | | [phone] | | | +--------+ + + + [...] Rd | | | | | | [place] [address] | | +--------+ + + + + | 11/14/ | Office | Hematology & | Taz Mcneal, | | | 2019 | Visit | Oncology | FABIANA-C [address] | | | | | | [address] | | | | | | [place], [place] | | | | | | [address] | | | | | | [phone] | | | | | | | | +--------+ + + + + | 11/14/ | Appointment | Hematology & | B/C, Pod [address] | | | 2018 | | Oncology | [place], | | | | | | [place] [address] | | +--------+ + + + + [...] [place] | | | | | | [address] | | | | | | [phone] | | | | | | | | +--------+ + + + + | 11/28/ | Appointment | Hematology & | B/C, Pod [address] | | | 2019 | | Oncology | [place], | | | | | | [place] [address] | | +--------+ + + + + [...] | | | | | | [place] | | | | | | [address] | | | | | | [phone] | | | | | | | | +--------+ + + + + | 12/12/ | Appointment | Hematology & | B/C, Pod [address] | | | 2019 | | Oncology | [place], | | | | | | [place] [address] | | +--------+ + + + + as of this encounter Visit Diagnoses Not on filein this encounter"
--- OUTSIDE RECORDS SUMMARY | ~2018-11-06 | XMS | Encounter Summary ---
Demographics + + + | Address | [address] | | | [place] [address] | + + + | Home Phone | | + + + | Preferred Language | Unknown | + + + | Marital Status | | + + + | Rastafari Affiliation | NRP | + + + | Race | White | + + + | Ethnic Group | Not or | + + + Author + + + | Author | [facility] | + + + | Organization | [facility] | + + + | Address | Unknown | + + + | Phone | Unavailable | + + + Support + + + + + | Name | Relationship | Address | Phone | + + + + + | ELSA GOODE | ECON | [address] | | | | | [place] [address] | | + + + + + Care Team Providers + +------+ + | Care Tobacco Scrap Sifter Name | Role | Phone | + +------+ + | Piotr Plummer MD | PCP | | + +------+ + Reason for Visit + + + | Reason | Comments | + + + | With Dignity | | + + + Encounter Details +--------+---------+ + + + | Date | Type | Department | Care Team | Description | +--------+---------+ + + + | 09/27/ | Office | Hematology/Medical | Toni Winchester, | Pancreatic | | 2019 | Visit | Oncology at [place] | [address] | adenocarcinoma (HCC) | | | | for Health & Healing | [place], [place] | (Primary Dx) | | | | [address] | [address] | | | | | Mailcode: [place] | [phone] | | | | | for Health and | | | | | | Healing, [address] | | | | | | [place], [place] | | | | | | [address] | | | | | | [phone] | | | +--------+---------+ + + + [...] + + + | Blood Pressure | 123/61 | 09/27/2018 12:33 PM PDT | + + + + | Pulse | 82 | 09/27/2018 12:33 PM PDT | + + + + | Temperature | 36.7 C (98.1 F) | 09/27/2018 12:33 PM PDT | + + + + | Respiratory Rate | 14 | 09/27/2018 12:33 PM PDT | + + + + | Oxygen Saturation | 97% | 09/27/2018 12:33 PM PDT | + + + + | Inhaled Oxygen | - | - | | Concentration | | | + + + + | Weight | 55.2 kg (121 lb 9.6 | 09/27/2018 12:33 PM PDT | | | oz) | | + + + + | Height | - | - | + + + + | Body Mass Index | 21.54 | 09/27/2018 12:33 PM PDT | + + + + in this encounter Progress Notes Toni Winchester MD - 09/27/2018 12:00 PM PDTPt here to learn about DWD. I feel she is capa ble and does not need formal psychiatrc consultation.She does have a consulting physician bill (Hermann).She does not have a life expectancy of fewer than 6 months and is not yet el igible. She proved residency. She is acting voluntarily and is fully informed of dx, prognos is, risks and effects of medicine, alternatives including active rx and palliation, right to change mind, recommendation to inform kin and to have another person (including, possibly, me) present when/if med taken, advice not to take med in public place. We discussed cost of the two meds and compared their efficacy and toxicity profile. I infor med her, with scheduling, I am available to be with her when she takes the lethal medication . Hospice: No Reason for DWD:CORINE POLST: No I spent 60 minutes with my patient. Over 50% was spent counseling the patient, regarding th e items above. Action plan: She will contact me with any clinical deterioration or if she simply changes her mind. She understands the requriements to self administer and to be mentally competent. Written request-form given She will fill out a DNR form today Onc: 73F recent abd pain and bloat. 07/03 CT panc head mass and liver involvement. Both bx + adenocn. Started gem-abraxane and ready for cycle 2. ROS fatigue abd pain down 5 lbs Good swallowing No psych No allergies [place] in this encounter Plan of Treatment +--------+ + + + + | Date | Type | Specialty | Care Team | Description | +--------+ + + + + | 11/14/ | Appointment | Hematology & | Christos [facility] | | | 2019 | | Oncology | [address] | | | | | | [place] [address] | | +--------+ + + + + | 11/14/ | Office | Hematology & | Taz Mcneal, | | | 2019 | Visit | Oncology | OLYA [address] | | | | | | [address] | | | | | | [place], [place] | | | | | | [address] | | | | | | [phone] | | | | | | | | +--------+ + + + + | 11/14/ | Appointment | Hematology & | B/C, Pod [address] | | | 2018 | | Oncology | [place], | | | | | | [place] [address] | | +--------+ + + + + [...] [place] | | | | | | [address] | | | | | | [phone] | | | | | | | | +--------+ + + + + | 11/28/ | Appointment | Hematology & | B/C, Pod [address] | | | 2019 | | Oncology | [place], | | | | | | [place] [address] | | +--------+ + + + + [...] Rd | | | | | | [place] | | | | | | [address] | | | | | | [phone] | | | | | | | | +--------+ + + + + | 12/12/ | Appointment | Hematology & | B/C, Pod [address] | | | 2019 | | Oncology | [place], | | | | | | [place] [address] | | +--------+ + + + + as of this encounter Visit Diagnoses + + | Diagnosis | + + | Pancreatic adenocarcinoma (HCC) - Primary | + + | Malignant neoplasm of pancreas, part unspecified | + +"
--- OUTSIDE RECORDS SUMMARY | ~2018-11-06 | XMS | Encounter Summary ---
Demographics + + + | Address | [address] | | | [place] [address] | + + + | Home Phone [...] | | | | | [place] [address] | | + + + + + Care Team Providers + +------+ + | Care Wind Project Manager Name | Role | Phone | [...] | 2019 | Encounter | [facility]cology at [place] | ,PhD [address] | | | | | for Health & Healing | [place], [place] | | | | | [address] | [address] | | | | | Mailcode: [place] | [phone] | | | | | for Health and | | | | | | [facility] | | | | | | [place], [place] | | | | | | [address] | | | | | | [phone] | | | +--------+ + + + [...] Rd | | | | | | [place] [address] | | +--------+ + + + + | 11/14/ | Office | Hematology & | Taz Mcneal, | | | 2018 | Visit | Oncology | OLYA [address] | | | | | | [address] | | | | | | [place] | | | | | | [address] | | | | | | [phone] | | | | | | | | +--------+ + + + + | 11/14/ | Appointment | Hematology & | B/C, Pod [address] | | | 2019 | | Oncology | [place], | | | | | | [place] [address] | | +--------+ + + + + | 11/28/ | Clinical | | | | | 2019 | Support | | | | | | Staff | | | | +--------+ + + + + | 11/28/ | Office | Hematology & | Taz Mcnael, | | | 2018 | Visit | Oncology | OLYA [address] | | | | | | [address] | | | | | | [place] | | | | | | [address] | | | | | | [phone] | | | | | | | | +--------+ + + + + | 11/28/ | Appointment | Hematology & | B/C, Pod [address] | | | 2018 | | Oncology | [place], | | | | | | [place] [address] | | +--------+ + + + + | 12/12/ | Clinical | | | | | 2018 | Support | | | | | | Staff | | | | +--------+ + + + + | 12/12/ | Office | Hematology & | Taz Mcneal, | | | 2018 | Visit | Oncology | [facility] [address] | | | | | | [address] | | | | | | [place] | | | | | | [address] | | | | | | [phone] | | | | | | | | +--------+ + + + + | 12/12/ | Appointment | Hematology & | B/C, Pod [address] | | | 2019 | | Oncology | [place], | | | | | | [place] [address] | | +--------+ + + + + as of this encounter Visit Diagnoses Not on filein this encounter"
--- OUTSIDE RECORDS SUMMARY | ~2018-11-06 | XMS | Encounter Summary ---
Demographics + + + | Address | [address] | | | [place] [address] | + + + | Home Phone [...] | | | | | [place] [address] | | + + + + + Care Team Providers + +------+ + | Care Dog Food Shredder Operator Name | Role | Phone | [...] | Oncology at Center | [address] [facility] | | | | | for Health & Healing | [address] | | | | | [address] | [place], [place] | | | | | Mailcode: [place] | [address] | | | | | for Health and | [phone] | | | | | [facility] 2 | | | | | | [place], [place] | | | | | | [address] | | | | | | [phone] | | | +--------+ + + + [...] [address] | | | | | | [place] [address] | | +--------+ + + + + | 11/14/ | Office | Hematology & | Taz Mcneal, | | | 2018 | Visit | Oncology | PA-C [address] | | | | | | [address] | | | | | | [place] | | | | | | [address] | | | | | | [phone] | | | | | | | | +--------+ + + + + | 11/14/ | Appointment | Hematology & | B/C, Pod [address] | | | 2019 | | Oncology | [place] | | | | | | [place] [address] | | +--------+ + + + + | 11/28/ | Clinical | | | | | 2019 | Support | | | | | | Staff | | | | +--------+ + + + + | 11/28/ | Office | Hematology & | Tza Mcneal, | | | 2018 | Visit | Oncology | PA-Cindy [address] [facility] | | | | | | [address] | | | | | | [place] | | | | | | [address] | | | | | | [phone] | | | | | | | | +--------+ + + + + | 11/28/ | Appointment | Hematology & | B/C, Pod [address] | | | 2018 | | Oncology | [place] | | | | | | [place] [address] | | +--------+ + + + + | 12/12/ | Clinical | | | | | 2018 | Support | | | | | | Staff | | | | +--------+ + + + + | 12/12/ | Office | Hematology & | Taz Mcneal, | | | 2018 | Visit | Oncology | PA-C [address] [facility] | | | | | | [address] | | | | | | [place], [place] | | | | | | [address] | | | | | | [phone] | | | | | | | | +--------+ + + + + | 12/12/ | Appointment | Hematology & | B/C, Pod [address] | | | 2018 | | Oncology | [place], | | | | | | [place] [address] | | +--------+ + + + + [...]
--- OUTSIDE RECORDS SUMMARY | ~2018-11-06 | XMS | Encounter Summary ---
Demographics + + + | Address | [address] | | | [place] [address] | + + + | Home Phone | | + + + | Preferred Language | Unknown | + + + | Marital Status | | + + + | Catholic Affiliation | NRP | + + [...] | | | | | [place] [address] | | + + + + + Care Team Providers + +------+ + | Care Fine Chemicals Operator Name | Role | Phone | [...] | 2019 | Visit | Oncology at [place] | [address] | adenocarcinoma (HCC) | | | | for Health & Healing | [place], [place] | (Primary Dx) | | | | [address] | [address] | | | | | Mailcode: [place] | [phone] | | | | | for Health and | | | | | | Healing, [address] | | | | | | [place], [place] | | | | | | [address] | | | | | | [phone] | | | +--------+---------+ + + + [...] | | 2019 | | Oncology | [address] | | | | | | [place] [address] | | +--------+ + + + + | 11/14/ | Office | Hematology & | Taz Mcneal, | | | 2019 | Visit | Oncology | OLYA [address] | | | | | | [address] | | | | | | [place], [place] | | | | | | [address] | | | | | | [phone] | | | | | | | | +--------+ + + + + | 11/14/ | Appointment | Hematology & | B/C, Pod [address] | | | 2018 | | Oncology | [place], | | | | | | [place] [address] | | +--------+ + + + + [...] Rd | | | | | | [place], [place] | | | | | | [address] | | | | | | [phone] | | | | | | | | +--------+ + + + + | 11/28/ | Appointment | Hematology & | B/C, Pod [address] | | | 2019 | | Oncology | [place], | | | | | | [place] [address] | | +--------+ + + + + [...] Rd | | | | | | [place] | | | | | | [address] | | | | | | [phone] | | | | | | | | +--------+ + + + + | 12/12/ | Appointment | Hematology & | B/C, Pod [address] | | | 2019 | | Oncology | [place], | | | | | | [place] [address] | | +--------+ + + + + as of this encounter Visit Diagnoses + + | Diagnosis | + + | Pancreatic adenocarcinoma (HCC) - Primary | + + | Malignant neoplasm of pancreas, part unspecified | + +"
--- OUTSIDE RECORDS SUMMARY | ~2018-11-06 | XMS | Encounter Summary ---
Demographics + + + | Address | [address] | | | [place] [address] | + + + | Home Phone [...] | | | | | [place] [address] | | + + + + + Care Team Providers + +------+ + | Care Supervisor Powdered Sugar Name | Role | Phone | + +------+ + | Piotr Plummer MD | PCP | | + +------+ + Encounter Details +--------+ + + + + | Date | Type | Department | Care Team | Description | +--------+ + + + + | 10/16/ | Procedure | Radiology/Imaging | | | | 2019 | Pass | Lab at [facility] [address] | | | | | | [address] | | | | | | Mailcode: CH3G | | | | | | [facility] | | | | | | and Healing, 3rd | | | | | | Floor [place], [place] | | | | | | [address] | | | | | | [phone] | | | +--------+ + + + [...] | | 2018 | | Oncology | [address] | | | | | | [place] [address] | | +--------+ + + + + | 11/14/ | Office | Hematology & | Taz Mcneal, | | | 2019 | Visit | Oncology | FABIANA-C [address] | | | | | | [address] | | | | | | [place], [place] | | | | | | [address] | | | | | | [phone] | | | | | | | | +--------+ + + + + | 11/14/ | Appointment | Hematology & | B/C, Pod [address] | | | 2018 | | Oncology | [place], | | | | | | [place] [address] | | +--------+ + + + + [...] Rd | | | | | | [place], [place] | | | | | | [address] | | | | | | [phone] | | | | | | | | +--------+ + + + + | 11/28/ | Appointment | Hematology & | B/C, Pod [address] | | | 2019 | | Oncology | [place], | | | | | | [place] [address] | | +--------+ + + + + [...] Rd | | | | | | [place] | | | | | | [address] | | | | | | [phone] | | | | | | | | +--------+ + + + + | 12/12/ | Appointment | Hematology & | B/C, [address] | | | 2019 | | Oncology | [place], | | | | | | [place] [address] | | +--------+ + + + + as of this encounter Visit Diagnoses Not on filein this encounter"
--- OUTSIDE RECORDS SUMMARY | ~2018-11-06 | XMS | Encounter Summary ---
Demographics + + + | Address | [address] | | | [place] [address] | + + + | Home Phone [...] | | | | | [place] [address] | | + + + + + Care Team Providers + +------+ + | Care Paper Carrier Name | Role | Phone | + +------+ + | Piotr Plummer MD | PCP | | + +------+ + Reason for Visit + + + | Reason | Comments | + + + | Scheduling | | + + + Encounter Details +--------+ + + + + | Date | Type | Department | Care Team | Description | +--------+ + + + + | 02/22/ | MyChart | Hematology/Medical | Toni Mccrary, | RE: Chemo schedule | | 2019 | Encounter | Oncology at Center | ,PhD [address] | | | | | for Health & Healing | [address] [place], [place] | | | | | [address] | [address] | | | | | Mailcode: [place] | [phone] | | | | | for Health and | | | | | | Healing, [address] | | | | | | [place], [place] | | | | | | [address] | | | | | | [phone] | | | +--------+ + + + [...] | | | | | [place] [address] | | +--------+ + + + + | 11/14/ | Office | Hematology & | Taz Mcneal, | | | 2018 | Visit | Oncology | [facility] [address] | | | | | | [address] | | | | | | [place] | | | | | | [address] | | | | | | [phone] | | | | | | | | +--------+ + + + + | 11/14/ | Appointment | Hematology & | B/C, [address] | | | 2019 | | Oncology | [place] | | | | | | [place] [address] | | +--------+ + + + + [...] Rd | | | | | | [place], [place] | | | | | | [address] | | | | | | [phone] | | | | | | | | +--------+ + + + + | 11/28/ | Appointment | Hematology & | B/C, [address] | | | 2019 | | Oncology | [place], | | | | | | [place] [address] | | +--------+ + + + + [...] [place] | | | | | | [address] | | | | | | [phone] | | | | | | | | +--------+ + + + + | 12/12/ | Appointment | Hematology & | B/C, [address] | | | 2019 | | Oncology | [place], | | | | | | [place] [address] | | +--------+ + + + + as of this encounter Visit Diagnoses Not on filein this encounter"
--- OUTSIDE RECORDS SUMMARY | ~2018-11-06 | XMS | Encounter Summary ---
Demographics + + + | Address | [address] | | | [place] [address] | + + + | Home Phone | | + + + | Preferred Language | Unknown | + + + | Marital Status | | + + + | Mosque Affiliation | NRP | + + + [...] | | | | | [place] [address] | | + + + + + Care Team Providers + +------+ + | Care American Studies Professor Name | Role | Phone | + +------+ + | Piotr Plummer MD | PCP | | + +------+ + Reason for Visit + + + | Reason | Comments | + + + | Scheduling | gemcitabine-Abraxane | + + + Encounter Details +--------+ + + + + | Date | Type | Department | Care Team | Description | +--------+ + + + + | 08/15/ | Documentati | Hematology/Medical | Toni Mccrary, | Scheduling | | 2019 | on | [facility] [place] | ,PhD [address] | (gemcitabine-Abraxan | | | | for Health & Healing | [address] [place], [place] | e) | | | | [address] | [address] | | | | | Mailcode: [place] | [phone] | | | | | for Health and | | | | | | Healing, [address] | | | | | | [place], [place] | | | | | | [address] | | | | | | [phone] | | | +--------+ + + + [...] | | | | | [place] [address] | | +--------+ + + + + | 11/14/ | Office | Hematology & | Taz Mcneal, | | | 2018 | Visit | Oncology | PA-C [address] | | | | | | [address] | | | | | | [place] | | | | | | [address] | | | | | | [phone] | | | | | | | | +--------+ + + + + | 11/14/ | Appointment | Hematology & | B/C, Pod [address] | | | 2019 | | Oncology | [place] | | | | | | [place] [address] | | +--------+ + + + + | 11/28/ | Clinical | | | | | 2018 | Support | | | | | | Staff | | | | +--------+ + + + + | 11/28/ | Office | Hematology & | Taz Mcneal, | | | 2018 | Visit | Oncology | PA-Cindy [address] [facility] | | | | | | [address] | | | | | | [place] | | | | | | [address] | | | | | | [phone] | | | | | | | | +--------+ + + + + | 11/28/ | Appointment | Hematology & | B/C, [address] | | | 2019 | | Oncology | [place] | | | | | | [place] [address] | | +--------+ + + + + | 12/12/ | Clinical | | | | | 2018 | Support | | | | | | Staff | | | | +--------+ + + + + | 12/12/ | Office | Hematology & | Taz Mcneal, | | | 2018 | Visit | Oncology | [place] [address] [facility] | | | | | | [address] | | | | | | [place] | | | | | | [address] | | | | | | [phone] | | | | | | | | +--------+ + + + + | 12/12/ | Appointment | Hematology & | B/C, [address] | | | 2018 | | Oncology | [place], | | | | | | [place] [address] | | +--------+ + + + + as of this encounter Visit Diagnoses Not on filein this encounter"
--- OUTSIDE RECORDS SUMMARY | ~2018-11-06 | XMS | Encounter Summary ---
Demographics + + + | Address | [address] | | | [place] [address] | + + + | Home Phone | | + + + | Preferred Language | Unknown | + + + | Marital Status | | + + + | Baptism Affiliation | NRP | + + + | Race | White | + + + | Ethnic Group | Not or | + + + Author + + + | Author | [facility] | + + + | Organization | [facility] | + + + | Address | Unknown | + + + | Phone | Unavailable | + + + Support + + + + + | Name | Relationship | Address | Phone | + + + + + | ELSA GOODE | ECON | [address] | | | | | [place] [address] | | + + + + + Care Team Providers + +------+ + | Care Blood Bank Worker Name | Role | Phone | + +------+ + | Piotr Plummer MD | PCP | | + +------+ + Encounter Details +--------+ + + + + | Date | Type | Department | Care Team | Description | +--------+ + + + + | 09/17/ | MyChart | Hematology/Medical | Toni Mccrary, | RE: Appointment | | 2019 | Encounter | [facility] [place] | ,PhD [address] | | | | | for Health & Healing | [place], [place] | | | | | [address] | [address] | | | | | Mailcode: [place] | [phone] | | | | | for Health and | | | | | | [facility] [address] | | | | | | [place], [place] | | | | | | [address] | | | | | | [phone] | | | +--------+ + + + [...] | | Oncology | [address] | | | | | | [place] [address] | | +--------+ + + + + | 11/14/ | Office | Hematology & | Taz Mcneal, | | | 2018 | Visit | Oncology | [place] [address] | | | | | | [address] | | | | | | [place] | | | | | | [address] | | | | | | [phone] | | | | | | | | +--------+ + + + + | 11/14/ | Appointment | Hematology & | B/C, Pod [address] | | | 2019 | | Oncology | [place], | | | | | | [place] [address] | | +--------+ + + + + [...] [place] | | | | | | [address] | | | | | | [phone] | | | | | | | | +--------+ + + + + | 11/28/ | Appointment | Hematology & | B/C, Pod [address] | | | 2018 | | Oncology | [place], | | | | | | [place] [address] | | +--------+ + + + + [...] [place] | | | | | | [address] | | | | | | [phone] | | | | | | | | +--------+ + + + + | 12/12/ | Appointment | Hematology & | B/C, [address] | | | 2019 | | Oncology | [place], | | | | | | [place] [address] | | +--------+ + + + + as of this encounter Visit Diagnoses Not on filein this encounter"
--- OUTSIDE RECORDS SUMMARY | ~2018-11-06 | XMS | Encounter Summary ---
Demographics + + + | Address | [address] | | | [place] [address] | + + + | Home Phone [...] Author | [facility] | + + + | Organization | [facility] | + + + | Address | Unknown | + + + | Phone | Unavailable | + + + Support + + + + + | Name | Relationship | Address | Phone | + + + + + | ELSA GOODE | ECON | [address] | | | | | [place] [address] | | + + + + + Care Team Providers + +------+ + | Care Locomotive Inspector Name | Role | Phone | + +------+ + | Piotr Plummer MD | PCP | | + +------+ + Encounter Details +--------+ + + + + | Date | Type | Department | Care Team | Description | +--------+ + + + + | 08/15/ | Rental Management Trainee | Hematology/Medical | Toni Mccrary, | | | 2019 | | [facility] [place] | ,PhD [address] | | | | | for Health & Healing | [place], [place] | | | | | [address] | [address] | | | | | Mailcode: [place] | [phone] | | | | | for Health and | | | | | | Healing, [address] | | | | | | [place], [place] | | | | | | [address] | | | | | | [phone] | | | +--------+ + + + [...] Rd | | | | | | [place] [address] | | +--------+ + + + + | 11/14/ | Office | Hematology & | Taz Mcneal, | | | 2019 | Visit | Oncology | FABIANA-Cindy [address] | | | | | | [address] | | | | | | [facility] [place] | | | | | | [address] | | | | | | [phone] | | | | | | | | +--------+ + + + + | 11/14/ | Appointment | Hematology & | B/C, Pod [address] | | | 2019 | | Oncology | [place], | | | | | | [place] [address] | | +--------+ + + + + [...] [place] | | | | | | [address] | | | | | | [phone] | | | | | | | | +--------+ + + + + | 11/28/ | Appointment | Hematology & | B/C, [address] | | | 2019 | | Oncology | [place], | | | | | | [place] [address] | | +--------+ + + + + | 12/12/ | Clinical | | | | | 2019 | Support | | | | | | Staff | | | | +--------+ + + + + | 12/12/ | Office | Hematology & | Taz Mcneal, | | | 2018 | Visit | Oncology | PA-C [address] [facility] | | | | | | [address] | | | | | | [place], [place] | | | | | | [address] | | | | | | [phone] | | | | | | | | +--------+ + + + + | 12/12/ | Appointment | Hematology & | B/C, Pod [address] | | | 2019 | | Oncology | [place], | | | | | | [place] [address] | | +--------+ + + + + as of this encounter Visit Diagnoses Not on filein this encounter"
--- OUTSIDE RECORDS SUMMARY | ~2018-11-06 | XMS | Encounter Summary ---
Demographics + + + | Address | [address] | | | [place] [address] | + + + | Home Phone [...] | | | | | [place] [address] | | + + + + + Care Team Providers + +------+ + | Care Fishing Captain Name | Role | Phone | + +------+ + | Piotr Plummer MD | PCP | | + +------+ + Encounter Details +--------+ + + + + | Date | Type | Department | Care Team | Description | +--------+ + + + + | 08/15/ | Client Service Supervisor | Hematology/Medical | Toni Mccrary, | | | 2019 | | [facility] [place] | ,PhD [address] | | | | | for Health & Healing | [place], [place] | | | | | [address] | [address] | | | | | Mailcode: [place] | [phone] | | | | | for Health and | | | | | | Healing, [address] | | | | | | [place], [place] | | | | | | [address] | | | | | | [phone] | | | +--------+ + + + [...] Rd | | | | | | [place] [address] | | +--------+ + + + + | 11/14/ | Office | Hematology & | Taz Mcneal, | | | 2019 | Visit | Oncology | FABIANA-Cindy [address] | | | | | | [address] | | | | | | [facility] [place] | | | | | | [address] | | | | | | [phone] | | | | | | | | +--------+ + + + + | 11/14/ | Appointment | Hematology & | B/C, Pod [address] | | | 2019 | | Oncology | [place], | | | | | | [place] [address] | | +--------+ + + + + [...] [place] | | | | | | [address] | | | | | | [phone] | | | | | | | | +--------+ + + + + | 11/28/ | Appointment | Hematology & | B/C, Pod [address] | | | 2019 | | Oncology | [place], | | | | | | [place] [address] | | +--------+ + + + + | 12/12/ | Clinical | | | | | 2019 | Support | | | | | | Staff | | | | +--------+ + + + + | 12/12/ | Office | Hematology & | Taz Mcneal, | | | 2018 | Visit | Oncology | PA-C [address] [facility] | | | | | | [address] | | | | | | [place], [place] | | | | | | [address] | | | | | | [phone] | | | | | | | | +--------+ + + + + | 12/12/ | Appointment | Hematology & | B/C, Pod [address] | | | 2019 | | Oncology | [place], | | | | | | [place] [address] | | +--------+ + + + + as of this encounter Visit Diagnoses Not on filein this encounter"
--- OUTSIDE RECORDS SUMMARY | ~2018-11-06 | XMS | Encounter Summary ---
Demographics + + + | Address | [address] | | | [place] [address] | + + + | Home Phone | | + + + | Preferred Language | Unknown | + + + | Marital Status | | + + + | Methodist Affiliation | NRP | + + + | Race | White | + + + | Ethnic Group | Not or | + + + Author + + + | Author | [facility] | + + + | Organization | [facility] | + + + | Address | Unknown | + + + | Phone | Unavailable | + + + Support + + + + + | Name | Relationship | Address | Phone | + + + + + | ELSA GOODE | ECON | [address] | | | | | [place] [address] | | + + + + + Care Team Providers + +------+ + | Care Ski Technician Name | Role | Phone | [...] | | 2019 | | [facility] [place] | ,PhD [address] | | | | | for Health & Healing | [place], [place] | | | | | [address] | [address] | | | | | Mailcode: [place] | [phone] | | | | | for Health and | | | | | | Healing, [address] | | | | | | [place], [place] | | | | | | [address] | | | | | | [phone] | | | +--------+ + + + [...] [address] | | | | | | [place] [address] | | +--------+ + + + + | 11/14/ | Office | Hematology & | Taz Mcneal, | | | 2018 | Visit | Oncology | PA-C [address] | | | | | | [address] | | | | | | [place] | | | | | | [address] | | | | | | [phone] | | | | | | | | +--------+ + + + + | 11/14/ | Appointment | Hematology & | B/C, Pod [address] | | | 2019 | | Oncology | [place] | | | | | | [place] [address] | | +--------+ + + + + [...] Rd | | | | | | [place], [place] | | | | | | [address] | | | | | | [phone] | | | | | | | | +--------+ + + + + | 11/28/ | Appointment | Hematology & | B/C, Pod [address] | | 2018 | | Oncology | [place], | | | | | | [place] [address] | | +--------+ + + + + [...] Rd | | | | | | [facility], [place] | | | | | | [address] | | | | | | [phone] | | | | | | | | +--------+ + + + + | 12/12/ | Appointment | Hematology & | B/C, Pod [address] | | | 2019 | | Oncology | [place], | | | | | | [place] [address] | | +--------+ + + + + as of this encounter Visit Diagnoses Not on filein this encounter"
--- OUTSIDE RECORDS SUMMARY | ~2018-11-06 | XMS | Encounter Summary ---
Demographics + + + | Address | [address] | | | [place] [address] | + + + | Home Phone | | + + + | Preferred Language | Unknown | + + + | Marital Status | | + + + | Christian Affiliation | NRP | + + + | Race | White | + + + | Ethnic Group | Not or | + + + Author + + + | Author | [facility] | + + + | Organization | [facility] | + + + | Address | Unknown | + + + | Phone | Unavailable | + + + Support + + + + + | Name | Relationship | Address | Phone | + + + + + | ELSA GOODE | ECON | [address] | | | | | [place] [address] | | + + + + + Care Team Providers + +------+ + | Care Chief Of Service Name | Role | Phone | + +------+ + | Piotr Plummer MD | PCP | | + +------+ + Encounter Details +--------+ + + + + | Date | Type | Department | Care Team | Description | +--------+ + + + + | 09/03/ | Tree And Shrub Technician | Hematology/Medical | Toni Mccrary, | | | 2019 | | [facility] at [place] | ,PhD [address] | | | | | for Health & Healing | [place], [place] | | | | | [address] | [address] | | | | | Mailcode: [place] | [phone] | | | | | for Health and | | | | | | Healing, [address] | | | | | | [place], [place] | | | | | | [address] | | | | | | [phone] | | | +--------+ + + + [...] Rd | | | | | | [place] [address] | | +--------+ + + + + | 11/14/ | Office | Hematology & | Taz Mcneal, | | | 2019 | Visit | Oncology | FABIANA-Cindy [address] | | | | | | [address] | | | | | | [facility], [place] | | | | | | [address] | | | | | | [phone] | | | | | | | | +--------+ + + + + | 11/14/ | Appointment | Hematology & | B/C, Pod [address] | | | 2019 | | Oncology | [place], | | | | | | [place] [address] | | +--------+ + + + + [...] [place] | | | | | | [address] | | | | | | [phone] | | | | | | | | +--------+ + + + + | 11/28/ | Appointment | Hematology & | B/C, Pod [address] | | | 2019 | | Oncology | [place], | | | | | | [place] [address] | | +--------+ + + + + | 12/12/ | Clinical | | | | | 2019 | Support | | | | | | Staff | | | | +--------+ + + + + | 12/12/ | Office | Hematology & | Taz Mcneal, | | | 2018 | Visit | Oncology | PA-C [address] [facility] | | | | | | [address] | | | | | | [place], [place] | | | | | | [address] | | | | | | [phone] | | | | | | | | +--------+ + + + + | 12/12/ | Appointment | Hematology & | B/C, Pod [address] | | | 2019 | | Oncology | [place], | | | | | | [place] [address] | | +--------+ + + + + as of this encounter Visit Diagnoses Not on filein this encounter"
--- OUTSIDE RECORDS SUMMARY | ~2018-11-06 | XMS | Encounter Summary ---
Demographics + + + | Address | [address] | | | [place] [address] | + + + | Home Phone [...] | | | | | [place] [address] | | + + + + + Care Team Providers + +------+ + | Care Construction Engineer Name | Role | Phone | [...] | 2019 | on | [facility] [place] | ,PhD [address] | (Juliano ) | | | | for Health & Healing | [address] [place], [place] | | | | | [address] | [address] | | | | | Mailcode: [place] | [phone] | | | | | for Health and | | | | | | Healing, [address] | | | | | | [place], [place] | | | | | | [address] | | | | | | [phone] | | | +--------+ + + + [...] [address] | | | | | | [place] [address] | | +--------+ + + + + | 11/14/ | Office | Hematology & | Taz Mcneal, | | | 2018 | Visit | Oncology | PA-C [address] | | | | | | [address] | | | | | | [place] | | | | | | [address] | | | | | | [phone] | | | | | | | | +--------+ + + + + | 11/14/ | Appointment | Hematology & | B/C, Pod [address] | | | 2019 | | Oncology | [place] | | | | | | [place] [address] | | +--------+ + + + + [...] [place] | | | | | | [address] | | | | | | [phone] | | | | | | | | +--------+ + + + + | 11/28/ | Appointment | Hematology & | B/C, Pod [address] | | | 2018 | | Oncology | [place], | | | | | | [place] [address] | | +--------+ + + + + [...] [place] | | | | | | [address] | | | | | | [phone] | | | | | | | | +--------+ + + + + | 12/12/ | Appointment | Hematology & | B/C, Pod [address] | | | 2019 | | Oncology | [place], | | | | | | [place] [address] | | +--------+ + + + + as of this encounter Visit Diagnoses Not on filein this encounter"
--- OUTSIDE RECORDS SUMMARY | ~2018-11-06 | XMS | Encounter Summary ---
Demographics + + + | Address | [address] | | | [place] [address] | + + + | Home Phone [address] | | | | | [place] [address] | | + + + + + Care Team Providers + +------+ + | Care Information Management Manager Name | Role | Phone | [...] | | | | | floor [address] [facility] | | | | | | [facility] | | | | | | [place], [place] | | | | | | [address] | | | +--------+ + + + [...] Rd | | | | | | [place] [address] | | +--------+ + + + + | 11/14/ | Office | Hematology & | Taz Mcneal, | | | 2018 | Visit | Oncology | [place] [address] | | | | | | [address] | | | | | | [place] | | | | | | [address] | | | | | | [phone] | | | | | | | | +--------+ + + + + | 11/14/ | Appointment | Hematology & | B/C, Pod [address] | | | 2018 | | Oncology | [place], | | | | | | [place] [address] | | +--------+ + + + + [...] Rd | | | | | | [place] | | | | | | [address] | | | | | | [phone] | | | | | | | | +--------+ + + + + | 11/28/ | Appointment | Hematology & | B/C, Pod [address] | | | 2019 | | Oncology | [place], | | | | | | [place] [address] | | +--------+ + + + + [...] Rd | | | | | | [facility] | | | | | | [address] | | | | | | [phone] | | | | | | | | +--------+ + + + + | 12/12/ | Appointment | Hematology & | B/C, Pod [address] | | | 2019 | | Oncology | [place], | | | | | | [place] [address] | | +--------+ + + + + as of this encounter Visit Diagnoses Not on filein this encounter"
--- OUTSIDE RECORDS SUMMARY | ~2018-11-06 | XMS | Encounter Summary ---
Demographics + + + | Address | [address] | | | [place] [address] | + + + | Home Phone [...] | | | | | [place] [address] | | + + + + + Care Team Providers + +------+ + | Care Menagerie Caretaker Name | Role | Phone | + +------+ + | Piotr Plummer MD | PCP | | + +------+ + Encounter Details +--------+ + + + + | Date | Type | Department | Care Team | Description | +--------+ + + + + | 09/18/ | Adobe Maker | Hematology/Medical | Toni Mccrary, | | | 2019 | | [facility]cology at [place] | ,PhD [address] | | | | | for Health & Healing | [place], [place] | | | | | [address] | [address] | | | | | Mailcode: [place] | [phone] | | | | | for Health and | | | | | | Healing, [address] | | | | | | [place], [place] | | | | | | [address] | | | | | | [phone] | | | +--------+ + + + [...] Rd | | | | | | [place] [address] | | +--------+ + + + + | 11/14/ | Office | Hematology & | Taz Mcneal, | | | 2019 | Visit | Oncology | FABIANA-Cindy [address] | | | | | | [address] | | | | | | [facility] [place] | | | | | | [address] | | | | | | [phone] | | | | | | | | +--------+ + + + + | 11/14/ | Appointment | Hematology & | B/C, Pod [address] | | | 2019 | | Oncology | [place], | | | | | | [place] [address] | | +--------+ + + + + [...] [place] | | | | | | [address] | | | | | | [phone] | | | | | | | | +--------+ + + + + | 11/28/ | Appointment | Hematology & | B/C, Pod [address] | | | 2019 | | Oncology | [place], | | | | | | [place] [address] | | +--------+ + + + + | 12/12/ | Clinical | | | | | 2019 | Support | | | | | | Staff | | | | +--------+ + + + + | 12/12/ | Office | Hematology & | Taz Mcneal, | | | 2018 | Visit | Oncology | PA-C [address] [facility] | | | | | | [address] | | | | | | [place], [place] | | | | | | [address] | | | | | | [phone] | | | | | | | | +--------+ + + + + | 12/12/ | Appointment | Hematology & | B/C, Pod [address] | | | 2019 | | Oncology | [place], | | | | | | [place] [address] | | +--------+ + + + + as of this encounter Visit Diagnoses Not on filein this encounter"
--- OUTSIDE RECORDS SUMMARY | ~2018-11-06 | XMS | Encounter Summary ---
Demographics + + + | Address | [address] | | | [place] [address] | + + + | Home Phone [...] | | | | | [place] [address] | | + + + + + Care Team Providers + +------+ + | Care Highway Patrol Officer Name | Role | Phone | + [...] | +--------+ + + + + | 10/23/ | Hospital | [place] [address] | Nisha Prince | | | 2019 | Encounter | [address] | MD Kiet [address] | | | | | [facility] | [address] | | | | | [place] | [place], [place] | | | | | (MNP/OLD N) | [address] | | | | | [place] [address] | [phone] | | | | | [phone] | | | +--------+ + + + [...] + + + | Blood Pressure | 127/66 | 10/23/2018 12:15 PM PDT | + + + + | Pulse | 65 | 10/23/2018 12:15 PM PDT | + + + + | Temperature | 36.6 C (97.9 F) | 10/23/2018 12:15 PM PDT | + + + + | Respiratory Rate | 16 | 10/23/2018 12:15 PM PDT | + + + + | Oxygen Saturation | 97% | 10/23/2018 12:15 PM PDT | + + + + | Inhaled Oxygen | - | - | | Concentration | | | + + + + | Weight | 52.2 kg (115 lb) | 10/23/2018 8:12 AM PDT | + + + + | Height | 160 cm (5' 3") | 10/23/2018 8:12 AM PDT | + + + + | Body Mass Index | 20.37 | 10/23/2018 8:12 AM PDT | + + + + in this encounter Discharge Instructions Alicia Felipe RN - 10/23/2018Home Care Instructions after ERCP (Endoscopic Retrograde C holangiopancreatography) You may resume your normal medications unless told otherwise. Begin blood thinning medicat ion again tomorrow. Medications The medications you received for your procedure can cause you to be forgetful and drowsy an d will take the remainder of the day to wear off. DO NOT drink alcohol, drive, operate heavy machinery, sign legal documents, or make major d ecisions until tomorrow. Common After Effects Mild abdominal pain, bloating, and gas. Sore throat. You may treat it with throat lozenges and/or gargle with warm salt water. You may bruise at your IV site. If you have pain, redness, or swelling at your IV site a pply a warm compress. Complications Call your GI doctor if you have: Abnormal amount of abdominal pain. Persistent nausea Vomiting or dark tarry stools. Shortness of breath, chest or neck pain. Fever above 101.5 Redness, pain, or swelling at your IV site that is not relieved with warm compress. For any questions related to your procedure, call Monday- Monday 8:00- 4:30 Call the endoscopy department toll free ext. [phone] or . After business hours or on weekends and holiday Hospital Stud Driver toll free [phone] ext. [phone] and have the GI doctor vocational aide paged. The provider who performed your procedure: Dr. Nisha Prince Results of your ERCP: Biliary obstruction found, metal stent placed. Diet: Liquid diets today, advance to low fiber diet as tolerated. Follow up Appointments with: Dr. Olivera and [facility] GI as planned. Your primary care provider or referring provider will receive copies of the procedure repor t and all the pathology reports with recommendations for treatment if needed. in this encounter Medications at Time of [...] | 1 | 09/13/19 | | | [id number] | meals and 1 | capsule | [...] + as of this encounter Progress Notes Nisha Prince MD - 10/23/2018 9:07 AM PDTFormatting of this note may be different from the original. PRE PROCEDURE NOTE: MR# [id number] Subjective: Elaine Goode is a 73 y.o. female who presents today for a GI procedure. Patient History Reviewed Medications reviewed Allergies: Allergies as of 10/19/2018 (No Known Allergies) Pt NPO for 12 hrs. ROS: All others negative. Objective: Vital Signs: BP 109/69 (BP Location: Left upper arm, Patient Position: Sitting) | Pulse 83 | Temp 36.1 C (97 F) | Resp 16 | Ht 1.6 m (5' 3") | Wt 52.2 kg (115 lb) | SpO2 96% | BMI 20.37 kg/m | BSA 1.52 m Neuro: Patient oriented X3. Mental status clear and intact Mallampati Score: II Neck Neck supple. No adenopathy Respiratory: negative findings: no chest deformities noted, normal diaphragmatic excursion Cardiovascular: peripheral pulses are wnl, no edema Abdomen: nontender, no masses, no organomegaly Impression Patient deemed appropriate candidate for planned procedure and sedation. ASA 3 Plan Proceed with GI procedure PARQ held and all questions addressed. Consent obtained. See procedure note 10/23/2018 in this encounter Plan of Treatment +--------+ + + + + | Date | Type | Specialty | Care Team | Description | +--------+ + + + + | 11/14/ | Appointment | Hematology & | Moustapha Sher | | | 2019 | | Oncology | [address] | | | | | | [place] [address] | | +--------+ + + + + | 11/14/ | Office | Hematology & | Taz Mcneal, | | | 2018 | Visit | Oncology | PA-C [address] | | | | | | [address] | | | | | | [place] | | | | | | [address] | | | | | | [phone] | | | | | | | | +--------+ + + + + | 11/14/ | Appointment | Hematology & | B/C, [address] | | | 2019 | | Oncology | [place] | | | | | | [place] [address] | | +--------+ + + + + | 11/28/ | Clinical | | | | | 2019 | Support | | | | | | Staff | | | | +--------+ + + + + | 11/28/ | Office | Hematology & | Taz Mcneal, | | | 2018 | Visit | Oncology | PA-C [address] | | | | | | [address] | | | | | | [place] | | | | | | [address] | | | | | | [phone] | | | | | | | | +--------+ + + + + | 11/28/ | Appointment | Hematology & | B/C, [address] | | | 2019 | | Oncology | [place] | | | | | | [place] [address] | | +--------+ + + + + | 12/12/ | Clinical | | | | | 2019 | Support | | | | | | Staff | | | | +--------+ + + + + | 12/12/ | Office | Hematology & | Tza Mcneal, | | | 2018 | Visit | Oncology | PA-Cindy [address] | | | | | | [address] | | | | | | [place], [place] | | | | | | [address] | | | | | | [phone] | | | | | | | | +--------+ + + + + | 12/12/ | Appointment | Hematology & | B/C, [address] | | | 2018 | | Oncology | [place] | | | | | | [place] [address] | | +--------+ + + + + as of this encounter Procedures + +--------+ + + + | Procedure Name | Priori | Date/Time | Associated Diagnosis | Comments | | | ty | | | | + +--------+ + + + | ERCP | Routin | 10/23/2018 | Bile duct | Results for this | | | e | 8:43 AM | obstruction | procedure are in the | | | | PDT | | results section. | + +--------+ + + + | LIVER SET | Routin | 10/23/2018 | | Results for this | | (AST,ALT,BILI | e | 8:13 AM | | procedure are in the | | TOTAL,BILI | | PDT | | results section. | | DIRECT,ALK | | | | | | PHOS,ALB,PROT TOTAL) | | | | | + +--------+ + + + | GI PROCEDURE UNIT | Routin | 10/23/2018 | | Results for this | | FLUOROSCOPY | e | 8:12 AM | | procedure are in the | | | | PDT | | results section. | + +--------+ + + + | CARDIOLOGY | | 10/23/2018 | | Results for this | | | | 12:00 AM | | procedure are in the | | | | PDT | | results section. | + +--------+ + + + in this encounter Results ERCP (10/23/2018 8:43 AM) + + + | Narrative | Performed At | + + + | MRN: | [id number] | | [id number] Date: 10/23/2018Patient Name: Elaine Gonzalez #: | ENDOSCOPY | | [id number] of : 1945CSN: [id number] Type: | | | AmbulatoryRoom: GI 3Procedure: | | | ERCPIndications: elevated LFTs, hx of metastatic PDAC | | | with new simón dil and early | | | satietyProviders: NISHA PRINCE MD | | | (Doctor), ALICIA FELIPE RN | | | (Nurse), GENECREST ORTIZ (Hand I Thermal Cutter)Referring | | | MD: CARLOS ALAS JR, MDRequesting Provider: | | | Medicines: Indomethacin 100 mg [place], General | | | AnesthesiaComplications: No immediate | | | complications.Procedure: Pre-Anesthesia | | | Assessment: - ASA Grade | | | Assessment: III - A patient with severe | | | systemic | | | disease. - After reviewing the | | | risks and benefits, the patient | | | was deemed in satisfactory | | | condition to undergo the | | | procedure. Prior to the | | | procedure, a History and Physical with | | | airway assessment was | | | performed (see patient record), | | | and patient medications and | | | allergies were reviewed. The | | | risks and benefits of the procedure and the sedation | | | options and risks were | | | discussed. All questions were | | | answered and informed consent was obtained. After | | | reviewing the risks and | | | benefits, the patient was deemed | | | in satisfactory condition to | | | undergo the procedure. | | | Immediately prior to administration of medications, the | | | patient was re-assessed for | | | adequacy to receive | | | sedatives. The heart rate, respiratory rate, oxygen | | | saturations, blood pressure, | | | adequacy of pulmonary | | | ventilation, and response to care were monitored | | | throughout the procedure. The | | | physical status of the | | | patient was re-assessed after the | | | procedure. The Olympus | | | [id number] Therapeutic Endoscope #[id number] | | | was introduced through the | | | mouth, and advanced to the | | | duodenum and used to inject contrast into the bile duct. | | | The Olympus [id number]-[id number] | | | Duodenoscope #[id number] was | | | introduced through the mouth, and advanced to the | | | duodenum and used to locate | | | the major papilla. The | | | Olympus [id number]-[id number] Peds Colonooscope #[id number] was | | | introduced through the mouth, | | | and advanced to the duodenum | | | and used to locate the major papilla. The ERCP | | | was accomplished without | | | difficulty. The patient | | | tolerated the procedure well.Estimated Blood Loss: Estimated | | | blood loss: none.Findings: The senior electrical project manager film was normal. The | | | esophagus was successfully intubated under direct vision. A | | | full forward view push enteroscopy was performed with a PCF. | | | There was a small amount of retained food in the stomach and | | | duodenum. The pylorus, duodenal bulb, duodenal sweep and D2 was | | | normal. There was mild narrowing of the lumen likely to due | | | to extrinsic compression in D3/D4 however no resistance to | | | PCF scope passage. there was retained food and dilation of | | | the proximal jejunum. The duodenoscope scope was advanced to | | | a normal major papilla in the descending duodenum without | | | detailed examination of the pharynx, larynx and associated | | | structures, and upper GI tract. The upper GI tract was grossly normal. | | | A long 0.035 inch Soft Jagwire was passed into the biliary | | | tree. The short-nosed traction sphincterotome was passed over | | | the guidewire and the bile duct was then deeply cannulated. | | | Contrast was injected. I personally interpreted the bile duct | | | images. There was brisk flow of contrast through the ducts. | | | Image quality was excellent. Contrast extended to the hepatic | | | ducts. The distal common bile duct contained a single severe | | | stenosis. The common hepatic duct and left and right hepatic | | | ducts and all intrahepatic branches were moderately dilated and | | | diffusely dilated, secondary to a stricture. One 10 Fr by 6 | | | cm uncovered metal biliary stent was placed into the common | | | bile duct. Bile flowed through the stent. The stent was in | | | good position. 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, s/p | | | metal stent placement today; | | | bili pre-proc today was 2.2 - | | | retained solid gastric contents with mild stenosis of | | | D3 without mucosal | | | abnormality; this area is traversed | | | with ease with large diameter | | | peds colonoscope and there | | | is food seen distal to this region; no enteral stent | | | placed as this is too early | | | from a luminal compromise | | | standpoint; she is on high dose narcotics for pain and | | | this may be causing some | | | level of gastroparesis as wellRecommendation: Fu with Dr | | | Hermann Low residue | | | diet Continue to monitor for | | | symptoms of progressive DANYELLE PRINCE MD10/23/2018 10:36:19 | | | AMNumber of Addenda: 0Renetta Initiated On: 10/23/2018 8:43 [facility] Letter | | | to: STEFFI BARRAZA MD, AGGIE OLIVERA MD | | + + + + +---------+ + + | Performing | Address | City/State/Zipcode | Phone Number | | Organization | | | | + +---------+ + + | [facility] | | | | + +---------+ + + LIVER SET (AST,ALT,BILI TOTAL,BILI DIRECT,ALK PHOS,ALB,PROT TOTAL) (10/23/2018 8:13 AM) + +---------+ + + | Component | Value | Ref Range | Performed At | + +---------+ + + | ALBUMIN, PLASMA | 2.9 (L) | 3.5 - 4.7 g/dL | [facility] | | (LAB) | | | SERVICES, CORE | + +---------+ + + | BILIRUBIN TOTAL | 2.2 (H) | 0.3 - 1.2 mg/dL | [facility] | | | | | SERVICES, CORE | + +---------+ + + | BILIRUBIN DIRECT | 1.6 (H) | 0.0 - 0.3 mg/dL | [facility] | | | | | SERVICES, CORE | + +---------+ + + | ALK PHOS | 916 (H) | 53 - 141 U/L | [facility] | | | | | SERVICES, CORE | + +---------+ + + | AST(SGOT) | 176 (H) | <=41 U/L | [facility] | | | | | SERVICES, CORE | + +---------+ + + | ALT (SGPT) | 280 (H) | <=60 U/L | [facility] | | | | | SERVICES, CORE | + +---------+ + + | TOTAL PROTEIN, | 6.7 | 6.4 - 8.2 g/dL | [facility] | | PLASMA (LAB) | | | SERVICES, CORE | + +---------+ + + | AST CMNT | No Hemo | | [facility] | | | | | SERVICES, CORE | + +---------+ + + | BILI T CMNT | No Hemo | | [facility] | | | | | SERVICES, CORE | + +---------+ + + | BILI D CMNT | No Hemo | | [facility] | | | | | SERVICES, CORE | + +---------+ + + + + | Specimen | + + | Blood - Blood | + + + + + + + | Performing | Address | City/State/Zipcode | Phone Number | | Organization | | | | + + + + + | [facility] | [address] | [place] [address] | | | SERVICES, CORE | [address] | | | + + + + + GI PROCEDURE UNIT FLUOROSCOPY (10/23/2018 8:12 AM) + + + | Narrative | Performed At | + + + | See GI procedure for results. | | + + + CARDIOLOGY (10/23/2018) + + + | Narrative | Performed At | + + + | | | + + + in this encounter Visit Diagnoses + + | Diagnosis | + + | Biliary obstruction due to cancer (HCC) - Primary | + + | Bile duct obstruction | + + | Obstruction of bile duct | + + Admitting Diagnoses + + | Diagnosis | + + | Bile duct obstruction | + + Administered Medications + +--------+ +-------+------+------+ | Medication Order | MAR | Action | Dose | Rate | Site | | | Action | Date | | | | + +--------+ +-------+------+------+ | heparin 100 unit/mL IV flush | Given | 10/23/2018 | 500 | | | | 500 Units 500 Units, | | 12:30 | Units | | | | intravenous, NEEDED, Starting | | PDT | | | | | 10/23/18 at 1230, Until Tue | | | | | | | 10/23/18 at 1835, deaccessing | | | | | | | line/port | | | | | | + +--------+ +-------+------+------+ +---+---+ | | | +---+---+ + +-------+ +--------+---+---+ | indomethacin (INDOCIN) | Given | 10/23/2018 | 100 mg | | | | suppository 100 mg 100 mg, | | 09:35 | | | | | rectal, ONCE, 1 dose, 10/23/18 | | PDT | | | | | at 0815 | | | | | | + +-------+ +--------+---+---+ +---+---+ | | | +---+---+ + +-------+ +-------+---+---+ | iohexol (OMNIPAQUE) 300 mg | Given | 10/23/2018 | 10 mL | | | | iodine/mL INTRAPROCEDURE PRN, | | 09:50 | | | | | Starting 10/23/18 at 0950, | | PDT | | | | | Until Discontinued | | | | | | + +-------+ +-------+---+---+ +---+---+ | | | +---+---+ + +---------+ +---+---+---+ | lactated ringers IV 50 mL/hr, | New Bag | 10/23/2018 | | | | | intravenous, CONTINUOUS, Starting | | 09:08 | | | | | 10/23/18 at 0815, Until Tue | | PDT | | | | | 10/23/18 at 1835 | | | | | | + +---------+ +---+---+---+ + + +---+---+---+ | given by anesthesiology | 10/23/2018 | | | | | | 09:58 | | | | | | PDT | | | | + + +---+---+---+ + +---+ | | | + +---+ | lidocaine viscous (XYLOCAINE | | | VISCOUS) 2 % mucosal solution 15 | | | mL 15 mL, oral, INTRAPROCEDURE | | | PRN, Starting 10/23/18 at 0812, | | | Until 10/23/18 at 1835, sore | | | oropharynx | | + +---+ | | | + +---+ | simethicone (MYLICON) | | | suspension 3.333 mg 3.333 mg | | | (rounded from 3.3333 mg = 1 | | | drop), oral, INTRAPROCEDURE PRN, | | | Starting 10/23/18 at 0812, | | | Until 10/23/18 at 1835, gas | | | bubbles in endoscope | | + +---+ | | | + +---+ in this encounter
--- OUTSIDE RECORDS SUMMARY | ~2018-11-06 | XMS | Encounter Summary ---
Demographics + + + | Address | [address] | | | [place] [address] | + + + | Home Phone [...] | | | | | [place] [address] | | + + + + + Care Team Providers + +------+ + | Care Cement Tile Maker Name | Role | Phone | [...] +--------+--------+ + + + + Encounter Details +--------+---------+ + + + | Date | Type | Department | Care Team | Description | +--------+---------+ + + + | 08/10/ | Surgery | 6A Intra Op [facility] | Martin Carrero, | DIAGNOSTIC | | 2019 | | [facility] | MD [address] [facility] | LAPAROSCOPY WITH | | | | Admitting Desk | [facility] | SEGMENT 2-3 LIVER | | | | Located on the | [place], [place] | BIOPSY, | | | | floor [address] [facility] | [address] | | | | | [facility] | [phone] | | | | | [place], [place] | | | | | | [address] | | | +--------+---------+ + + + [...] + + + | Blood Pressure | 126/73 | 08/10/2018 5:30 PM PST | + + + + | Pulse | 70 | 08/10/2018 5:30 PM PST | + + + + | Temperature | 36.3 C (97.3 F) | 08/10/2018 5:00 PM PST | + + + + | Respiratory Rate | 13 | 08/10/2018 5:30 PM PST | + + + + | Oxygen Saturation | 94% | 08/10/2018 5:30 PM PST | + + + + | Inhaled Oxygen | - | - | | Concentration | | | + + + + | Weight | - | - | + + + + | Height | - | - | + + + + | Body Mass Index | - | - | + + + + in this encounter Discharge Instructions Tigist Lawrence MD - 08/10/2018Showers are permitted starting tomorrow, no soaking in water (baths, jacuzzi, swimming) for 2-3 weeks or until all wounds are FULLY healed. No heavy lifting, nothing greater than 10lbs. For 4 weeks (a gallon of milk is approximatel y 8lbs.) NO DRIVING WHILE ON NARCOTICS (oxycodone) ACTIVITY: Walking will be your primary source of exercise. It is very important that you wa lk at least three times a day. These can be short walks that you can gradually increase over time as your strength improves. The majority of time should be spent out of bed. It is ok t o take naps if you are tired, but alternate napping with activity. CONSTIPATION: It is very important to avoid constipation and straining while trying to have a bowel movem ent. It is common to have constipation after surgery and while taking narcotics, however the re are several medications you can use to both prevent and relieve constipation. You can us e stool softeners (Colace a.k.a. Docusate Sodium) or laxatives (Senokot -stool softener + la xative; Milk of Magnesia; Miralax - laxative drink; Dulcolax - suppository). Please work tow giuseppe having a bowel movement every 1-2 days. It is also important to stay hydrated as this wi ll also help your bowel function. PAIN: It is expected that you will have pain after surgery, and it is important to manage this pa in so that you can increase your activity, sleep, and heal well from surgery. We recommend t aking multiple types of pain medications to decrease your overall need for narcotic pain med ications. See plan below: Tylenol: You may use utld-tgk-ptcumdz (OTC) acetaminophen (Tylenol) for milder pain. DO NOT TO TAKE MORE than 3000 mg per 24 hours. You can take 500-650 mg every 6 hours Ibuprofen: You can take 600 mg every 6-8 hours as a second line pain medication. You should take this with some food. You should stop taking this after 2 weeks, since longer term use can cause an upset stomach Narcotic: You are being discharged with a prescription for narcotic pain medication (Oxycod one)- this is to be taken NEEDED for pain not alleviated by Tylenol and Ibuprofen. You ca n take 1-2 tabs typically every 4-6 hours. Pain medication addiction: We expect that as you get farther out from surgery and are recovering well, that you won't need as much narcotic pain medication. These medications can be addictive. There are 2 ways of weaning yourself off pain medications: -By dose: For example (your dose/drug may be different): Instead of taking 10mg of Oxycodon e every 4 hours as needed, decrease your dose to 7.5mg (cut the tablet in half) or 5mg but s rocio on the every 4 hour as needed schedule that has been working. -OR- -By time interval: For example (your dose/drug may be different): Instead of taking 10mg of Oxycodone every 4 hours, start allowing more time between doses. Try to hold off taking ano ther dose for 5 or 6 hours depending on how bad your pain is. Then gradually increase to 7 h ours, 8 hours, etc. If you are having difficulty weaning yourself off the narcotics (also called opioids), PLEA SE discuss this with one of your medical providers. in this encounter Medications at Time of Discharge + + +-------+---------+ + + | Medication | Sig. | Disp. | Refills | Start | End Date | | | | | | Date | | + + +-------+---------+ + + | acetaminophen 500 | Take 500 mg by mouth | | | | | | mg oral tablet | every six hours as | | | | | | | needed. | | | | | + + +-------+---------+ + + | docusate sodium | Take 1 capsule by | | | 08/10/19 | | | (COLACE) 100 mg oral | mouth two times | | | 19 | | | capsule | daily. | | | | | + + +-------+---------+ + + | metoprolol | Take 1 [...] | | | | | + + +-------+---------+ + + | multivitamin oral | Take 1 tablet by | | | | | | tabletIndications: | mouth once daily. 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, left eye | | | | | | + + +-------+---------+ + + as of this encounter Plan of Treatment +--------+ + + + + | Date | Type | Specialty | Care Team | Description | +--------+ + + + + | 11/14/ | Appointment | Hematology & | Moustapha Sher | | | 2018 | | Oncology | [address] | | | | | | [place] [address] | | +--------+ + + + + | 11/14/ | Office | Hematology & | Taz Mcneal, | | | 2018 | Visit | Oncology | [facility] [address] | | | | | | [address] | | | | | | [place], [place] | | | | | | [address] | | | | | | [phone] | | | | | | | | +--------+ + + + + | 11/14/ | Appointment | Hematology & | B/C, [address] | | | 2019 | | Oncology | [place], | | | | | | [place] [address] | | +--------+ + + + + | 11/28/ | Clinical | | | | | 2018 | Support | | | | | | Staff | | | | +--------+ + + + + | 11/28/ | Office | Hematology & | Taz Mcneal, | | | 2018 | Visit | Oncology | PA-C [address] [facility] | | | | | | [address] | | | | | | [place] | | | | | | [address] | | | | | | [phone] | | | | | | | | +--------+ + + + + | 11/28/ | Appointment | Hematology & | B/C, [address] | | | 2019 | | Oncology | [place] | | | | | | [place] [address] | | +--------+ + + + + [...] Rd | | | | | | [place] | | | | | | [address] | | | | | | [phone] | | | | | | | | +--------+ + + + + | 12/12/ | Appointment | Hematology & | B/C, [address] | | | 2018 | | Oncology | [place], | | | | | | [place] [address] | | +--------+ + + + + as of this encounter Procedures + +--------+ + + + | Procedure Name | Priori | Date/Time | Associated Diagnosis | Comments | | | ty | | | | + +--------+ + + + | CBC (HEMOGRAM) ONLY | Urgent | 08/22/2018 | | Results for this | | | | 9:15 AM | | procedure are in the | | | | PST | | results section. | + +--------+ + + + | CBC ONLY | Urgent | 08/22/2018 | | Results for this | | | | 9:15 AM | | procedure are in the | | | | PST | | results section. | + +--------+ + + + | PROCEDURE NOTE | Routin | 08/10/2018 | | Results for this | | | e | 4:26 PM | | procedure are in the | | | | PST | | results section. | + +--------+ + + + | INSERTION OF RIGHT | Routin | 08/10/2018 | | Results for this | | TUNNELED CENTRAL | e | 2:31 PM | | procedure are in the | | VENOUS CATHETER WITH | | PST | | results section. | | PORT | | | | | + +--------+ + + + | LAPAROSCOPIC LIVER | Routin | 08/10/2018 | | Results for this | | BIOPSY | e | 2:31 PM | | procedure are in the | | | | PST | | results section. | + +--------+ + + + | PD-L1 | Routin | 08/10/2018 | | Results for this | | | e | 2:01 PM | | procedure are in the | | | | PST | | results section. | + +--------+ + + + | [facility] | Routin | 08/10/2018 | | Results for this | | TESTING | e | 2:01 PM | | procedure are in the | | | | PST | | results section. | + +--------+ + + + | LAB OTHER | Routin | 08/10/2018 | | Results for this | | | e | 2:01 PM | | procedure are in the | | | | PST | | results section. | + +--------+ + + + | SURGICAL PATHOLOGY | Routin | 08/10/2018 | | Results for this | | | e | 2:01 PM | | procedure are in the | | | | PST | | results section. | + +--------+ + + + | X-RAY CHEST 1 VIEW | Urgent | 08/10/2018 | | Results for this | | | | 1:55 PM | | procedure are in the | | | | PST | | results section. | + +--------+ + + + | X-RAY FLUOROSCOPY IN | Urgent | 08/10/2018 | | Results for this | | [place] <= 1 HOUR | | 1:02 PM | | procedure are in the | | | | PST | | results section. | + +--------+ + + + | PORT PLACEMENT | Electi | 08/10/2018 | METASTATIC | | | | ve | 1:00 PM | PANCREATIC | | | | Surgic | PST | ADENOCARCINOMA | | | | al | | | | + +--------+ + + + | DIAGNOSTIC | Electi | 08/10/2018 | METASTATIC | | | LAPAROSCOPY WITH | ve | 1:00 PM | PANCREATIC | | | BIOPSY | Surgic | PST | ADENOCARCINOMA | | | | al | | | | + +--------+ + + + | INTRAPROCEDURE | Routin | 08/10/2018 | | Results for this | | IMAGING | e | 11:09 AM | | procedure are in the | | | | PST | | results section. | + +--------+ + + + | ANESTHESIA/SEDATION | | 08/10/2018 | | Results for this | | | | 12:00 AM | | procedure are in the | | | | PST | | results section. | + +--------+ + + + | CARDIOLOGY | | 08/10/2018 | | Results for this | | | | 12:00 AM | | procedure are in the | | | | PST | | results section. | + +--------+ + + + in this encounter Results CBC (HEMOGRAM) ONLY (08/22/2018 9:15 AM) + + + + + | Component | Value | Ref Range | Performed At | + + + + + | WHITE CELL COUNT | 10.96 (H) | 3.50 - 10.80 K/cu mm | [facility] | | | | | SERVICES, CORE | + + + + + | RED CELL COUNT | 4.16 | 4.00 - 5.20 M/cu mm | [facility] | | | | | SERVICES, CORE | + + + + + | HEMOGLOBIN | 11.7 (L) | 12.0 - 16.0 g/dL | [facility] | | | | | SERVICES, CORE | + + + + + | HEMATOCRIT | 36.5 | 36.0 - 46.0 % | [facility] | | | | | SERVICES, CORE | + + + + + | MCV | 87.7 | 80.0 - 100.0 fL | [facility] | | | | | SERVICES, CORE | + + + + + | MCHC | 32.1 | 32.0 - 36.0 g/dL | [facility] | | | | | SERVICES, CORE | + + + + + | RDW SD | 37.8 | 35.1 - 46.3 fL | [facility] | | | | | SERVICES, CORE | + + + + + | PLATELET COUNT | 377 | 150 - 400 K/cu mm | [facility] | | | | | SERVICES, CORE | + + + + + | MPV | 9.0 (L) | 9.7 - 12.3 fL | [facility] | | | | | SERVICES, CORE | + + + + + | NRBC% | 0.0 | 0.0 - 0.3 % | [facility] | | | | | SERVICES, CORE | + + + + + | NRBC# | 0.00 | 0.00 - 0.02 K/cu mm | [facility] | | | | | [place] | + + + + + + + | Specimen | + + | Blood - Blood | + + + + + + + | Performing | Address | City/State/Zipcode | Phone Number | | Organization | | | | + + + + + | [facility] | [address] | [place] [address] | | | ELISHA TRAMMELL | [address] | | | + + + + + PROCEDURE NOTE (08/10/2018 4:26 PM)LAPAROSCOPIC LIVER BIOPSY (08/10/2018 2:31 PM) + + + | Narrative | Performed At | + + + | Tigist Lawrence MD 08/10/2018 3:20 PM [place] | | | Department of Surgery Operative Note Author: Tigist Lawrence MD, | | | [facility] Fellow ID: Elaine Goode Date | | | of the Procedure: 08/10/2018 Preoperative Diagnosis: Metastatic | | | pancreatic cancer to liver Postoperative Diagnosis: same | | | Procedure: 1. Placement of right internal jugular vein Power Port | | | with U/S guidance and floroscopy 2. Diagnostic laparoscopy with | | | liver biopsy Surgeon: Martin Carrero MD Customer Consultant(s): | | | Tigist Lawrence MD [facility], Galo Oneal MD R5 Indication: A 72 y.o. female | | | patient with metastatic pancreatic cancer who is enrolling in | | | precision medicine treatment. Given the need for chemotherapy, she | | | consented for a right internal jugular port placement and diagnostic | | | laparoscopy with liver biopsy to confirm metastatic disease and | | | obtain tissue for further treatments. Procedure Technique: | | | After obtaining informed consent, the patient was correctly | | | identified and taken to the operating room and placed on the table | | | in the supine position. SCDs were placed prior to induction of | | | general anesthesia. Any safety precautions were addressed. After | | | induction of anesthesia, the patient | | | | | | s abdomen was prepped and draped in the usual sterile fashion. | | | Preoperative pause was taken to identify the patient, procedure | | | being performed, confirm that all necessary personnel and equipment | | | were present and accounted for, the patient received appropriate | | | perioperative antibiotics. We began our operation with the right | | | chest port. Under direct visual ultrasound image, we cannulated | | | the right internal jugular on the first try. A wire was passed | | | distal to this and its position was confirmed in the superior vena | | | cava using fluoroscopy. A subcutaneous pocket was made on the right | | | upper chest with electrocautery after infiltrating the area with | | | local anesthetic. A subcutaneous tunnel was made between the area | | | of the wire and this port site, through which we fei the 8-mauritian | | | port line itself and we closed it with a mosquito clamp distally. A | | | sheath and dilator were advanced into the right interior jugular | | | over the wire with a Seldinger technique after a small majo incision | | | at the needle stick area and confirmed its presence again using | | | fluoroscopy. The port line was then placed through the sheath after | | | the dilator was removed and, under direct fluoroscopic guidance, it | | | was withdrawn until it was at the atrial caval junction. The | | | catheter was trimmed in the pocket to its working length, the blue | | | collar was placed back on the line, attached to the port and then | | | pulled a collar over this to secure it. The port was placed in the | | | pocket and secured with two 2-0 surgipro sutures. The port easily | | | flushed and aspirated without any difficulty. The soft tissue was | | | closed using 3-0 Polysorb and the skin was closed using 4-0 Biosyn | | | and sealed with tissue adhesive. A total of 12 seconds of fluroscopy | | | was used. Diagnostic Laparoscopy At this point, having included | | | the clean portion of the operation, attention was turned to the | | | abdominal portion. Pneumoperitoneum of 15 mmHg pressure was | | | established via Veress needle technique at the umbilicus. A 5 mm | | | port was placed here. On initial laparoscopy, we found no evidence | | | of trauma related to our Veress needle access and, after this was | | | done, we placed a 12 mm port superior and just to the midline with a | | | 5 mm additional port in the right abdomen, all under direct vision | | | with local anesthetic. With these ports in place, we then did a | | | diagnostic laparoscopy of the visible abdomen and found no | | | peritoneal disease. There was a 1 cm lesion medially at the junction | | | of segment 2/3 by the falciform and a larger tumor by segment 8. | | | There was a small diaphragmatic bleeding by the segment 8 tumor, | | | which appeared to be from when the tumor came away from the | | | diaphragm on insufflation. This was controlled with brief cautery. | | | Both tumors were removed with the Harmonic scalpel. Hemostasis | | | was achieved with the hook cautery. The larger lesion was removed | | | via an endocatch bag. All ports were removed under direct vision. | | | Additional local was infused in all incisions. A 0-vicryl was used | | | to close the 12 mm port fascia. All incisions were closed using 4-0 | | | Biosyn and then sealed using tissue adhesive. The surgical | | | procedure was terminated Anesthesia: general Complications: | | | none apparent Findings: 1. On laparoscopy, there was no | | | peritoneal disease. Tumors in the liver were seen in segment 2/3 and | | | segment 8 on the superficial surface 2. Port confirmed to be at | | | the atriocaval junction on fluoroscopy Estimated Blood Loss (EBL): | | | 20ml Fluids: 1.8 L crystalloids Specimens: segment 2/3 liver | | | biopsy; Other piece of segment 2/3 and segment 8 biopsies given for | | | research/precision medicine Drains: none The patient | | | tolerated the procedure well, was extubated and taken to and | | | transferred to the recovery room in good condition. Martin | | | MD Alise was present for critical portions of the operation. | | | Minimally Invasive Surgery Fellow [facility] | | | [place] P[place] [phone] | | + + + INSERTION OF RIGHT TUNNELED CENTRAL VENOUS CATHETER WITH PORT (08/10/2018 2:31 PM) + + + | Narrative | Performed At | + + + | Tigist Lawrence MD 08/10/2018 3:20 PM [place] | | | Department of Surgery Operative Note Author: Tigist Lawrence MD, | | | [facility] Fellow ID: Elaine Goode Date | | | of the Procedure: 08/10/2018 Preoperative Diagnosis: Metastatic | | | pancreatic cancer to liver Postoperative Diagnosis: same | | | Procedure: 1. Placement of right internal jugular vein Power Port | | | with U/S guidance and floroscopy 2. Diagnostic laparoscopy with | | | liver biopsy Surgeon: Martin Carrero MD Customer Consultant(s): | | | Tigist Lawrence MD [facility], Galo Oneal MD R5 Indication: A 72 y.o. female | | | patient with metastatic pancreatic cancer who is enrolling in | | | precision medicine treatment. Given the need for chemotherapy, she | | | consented for a right internal jugular port placement and diagnostic | | | laparoscopy with liver biopsy to confirm metastatic disease and | | | obtain tissue for further treatments. Procedure Technique: | | | After obtaining informed consent, the patient was correctly | | | identified and taken to the operating room and placed on the table | | | in the supine position. SCDs were placed prior to induction of | | | general anesthesia. Any safety precautions were addressed. After | | | induction of anesthesia, the patient | | | | | | s abdomen was prepped and draped in the usual sterile fashion. | | | Preoperative pause was taken to identify the patient, procedure | | | being performed, confirm that all necessary personnel and equipment | | | were present and accounted for, the patient received appropriate | | | perioperative antibiotics. We began our operation with the right | | | chest port. Under direct visual ultrasound image, we cannulated | | | the right internal jugular on the first try. A wire was passed | | | distal to this and its position was confirmed in the superior vena | | | cava using fluoroscopy. A subcutaneous pocket was made on the right | | | upper chest with electrocautery after infiltrating the area with | | | local anesthetic. A subcutaneous tunnel was made between the area | | | of the wire and this port site, through which we fei the 8-mauritian | | | port line itself and we closed it with a mosquito clamp distally. A | | | sheath and dilator were advanced into the right interior jugular | | | over the wire with a Seldinger technique after a small majo incision | | | at the needle stick area and confirmed its presence again using | | | fluoroscopy. The port line was then placed through the sheath after | | | the dilator was removed and, under direct fluoroscopic guidance, it | | | was withdrawn until it was at the atrial caval junction. The | | | catheter was trimmed in the pocket to its working length, the blue | | | collar was placed back on the line, attached to the port and then | | | pulled a collar over this to secure it. The port was placed in the | | | pocket and secured with two 2-0 surgipro sutures. The port easily | | | flushed and aspirated without any difficulty. The soft tissue was | | | closed using 3-0 Polysorb and the skin was closed using 4-0 Biosyn | | | and sealed with tissue adhesive. A total of 12 seconds of fluroscopy | | | was used. Diagnostic Laparoscopy At this point, having included | | | the clean portion of the operation, attention was turned to the | | | abdominal portion. Pneumoperitoneum of 15 mmHg pressure was | | | established via Veress needle technique at the umbilicus. A 5 mm | | | port was placed here. On initial laparoscopy, we found no evidence | | | of trauma related to our Veress needle access and, after this was | | | done, we placed a 12 mm port superior and just to the midline with a | | | 5 mm additional port in the right abdomen, all under direct vision | | | with local anesthetic. With these ports in place, we then did a | | | diagnostic laparoscopy of the visible abdomen and found no | | | peritoneal disease. There was a 1 cm lesion medially at the junction | | | of segment 2/3 by the falciform and a larger tumor by segment 8. | | | There was a small diaphragmatic bleeding by the segment 8 tumor, | | | which appeared to be from when the tumor came away from the | | | diaphragm on insufflation. This was controlled with brief cautery. | | | Both tumors were removed with the Harmonic scalpel. Hemostasis | | | was achieved with the hook cautery. The larger lesion was removed | | | via an endocatch bag. All ports were removed under direct vision. | | | Additional local was infused in all incisions. A 0-vicryl was used | | | to close the 12 mm port fascia. All incisions were closed using 4-0 | | | Biosyn and then sealed using tissue adhesive. The surgical | | | procedure was terminated Anesthesia: general Complications: | | | none apparent Findings: 1. On laparoscopy, there was no | | | peritoneal disease. Tumors in the liver were seen in segment 2/3 and | | | segment 8 on the superficial surface 2. Port confirmed to be at | | | the atriocaval junction on fluoroscopy Estimated Blood Loss (EBL): | | | 20ml Fluids: 1.8 L crystalloids Specimens: segment 2/3 liver | | | biopsy; Other piece of segment 2/3 and segment 8 biopsies given for | | | research/precision medicine Drains: none The patient | | | tolerated the procedure well, was extubated and taken to and | | | transferred to the recovery room in good condition. Martin | | | MD Alise was present for critical portions of the operation. | | | Minimally Invasive Surgery Fellow [facility] | | | [place] P[place] [phone] | | + + + LAB OTHER (08/10/2018 2:01 PM) + + + + + | Component | Value | Ref Range | Performed At | + + + + + | MISC REF TEST NAME | Pathology Slide Review | | [facility] | | | | | LAB | + + + + + | MISC REF TEST RESULT | See scanned report in | | [facility] | | | Media Manger on | | LAB | | | 09-05-2018 | | | + + + + + | NORMAL RANGE | | | [facility] | | | | | LAB | + + + + + | REFERRAL LAB NAME | Colin Farley | | [facility] | | | [id number] | | LAB | | | [id number] | | | + + + + + + + | Specimen | + + | Slide-Block - Liver | + + + + + + + | Performing | Address | City/State/Zipcode | Phone Number | | Organization | | | | + + + + + | [facility] | | | | + + + + + | [facility] | see below | | | + + + + + PD-L1 (08/10/2018 2:01 PM) + + + + + | Component | Value | Ref Range | Performed At | + + + + + | PD-L1 | Please see scanned | | [facility] | | | report for result. | | LAB | + + + + + + + | Specimen | + + | Tissue - Liver | + + + + + | Narrative | Performed At | + + + | Foundation | [facility] | | [employer] [place] [address] | REFERENCE LAB | |[place] [address] | | | | | | | | | | | + + + + + + + + | Performing | Address | City/State/Zipcode | Phone Number | | Organization | | | | + + + + + | [facility] | | | | + + + + + | [facility] | see below | | | + + + + + [facility] (08/10/2018 2:01 PM) + + + + + | Component | Value | Ref Range | Performed At | + + + + + | [facility] | Please see scanned | | [facility] | | TESTING | report for result. | | LAB | + + + + + + + | Specimen | + + | Slide-Block - Liver | + + + + + | Narrative | Performed At | + + + | | [facility] | | Test Performed by: | REFERENCE LAB | | | | | [facility] | | | [address] | | | [place] [address] | | + + + + + + + + | Performing | Address | City/State/Zipcode | Phone Number | | Organization | | | | + + + + + | [facility] | | | | + + + + + | [facility] | see below | | | + + + + + SURGICAL PATHOLOGY (08/10/2018 2:01 PM) + + + + + | Component | Value | Ref Range | Performed At | + + + + + | Clinical History | 72 year old female with | | 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 Liver, Segment 2-3 | | [facility] | | Diagnosis | liver, biopsy: | | OF PATHOLOGY | | | Adenocarcinoma, high | | | | | gradeComment: | | | | | Immunohistochemicals | | | | | stains performed on | | | | | block A1 show the tumor | | | | | cells are positive for | | | | | CK7 and CK19. The | | | | | patient has a pancreatic | | | | | mass and the current | | | | | tumor is compatible with | | | | | a metastasis from the | | | | | pancreas.Case seen | | | | | by:Misty | | | | | MD Taisha - | | | | | Surgical Pathology | | | | | Fellow Minal | | | | | MD Joellen, PhD | | | | | | | | | | PathologistPathology, | | | | | [facility] | | | | | [facility] electronic | | | | | signature indicates that | | | | | I have personally | | | | | reviewed all diagnostic | | | | | slides, the gross and/or | | | | | microscopic portion of | | | | | this report and | | | | | formulated the final | | | | | diagnosis. | | | + + + + + | Gross Description | Received is one specimen | | [facility] | | | fresh labeled with the | | OF PATHOLOGY | | | patient's name (initials | | | | | DARIO) and medical record | | | | | number [id number]. | | | | | Liver, Segment 2-3 liver | | | | | biopsy: Received | | | | | labeled "liver segment | | | | | 2-3 liver biopsy-1" are | | | | | 2 fragments of fisher-red | | | | | soft tissue ranging from | | | | | 0.2-0.7 cm in greatest | | | | | dimension. The specimen | | | | | is wrapped and entirely | | | | | submitted in cassette | | | | | A1.(ATR) | | | + + + + + | Ancillary | Analyte specific | | [facility] | | Information | reagents are used in | | OF PATHOLOGY | | | many laboratory tests | | | | | necessary for standard | | | | | medical care. This test | | | | | was developed and its | | | | | performance | | | | | characteristics | | | | | determined by [facility] | | | | | laboratories. It has | | | | | not been cleared or | | | | | approved by the US Food | | | | | and Drug Administration | | | | | (FDA). FDA does not | | | | | require this test to go | | | | | through premarket FDA | | | | | review. This test is | | | | | used for clinical | | | | | purposes. It should not | | | | | be regarded as | | | | | investigational or for | | | | | research. This | | | | | laboratory is certified | | | | | under the Clinical | | | | | Laboratory Improvement | | | | | Amendments (CLIA) as | | | | | qualified to perform | | | | | high complexity clinical | | | | | laboratory testing. | | | + + + + + + + | Specimen | + + | Tissue - Liver | + + + + + + + | Performing | Address | City/State/[facility] | Phone Number | | Organization | | | | + + + + + | [facility] | [address] | [place] [address] | | | PATHOLOGY | [address] | | | + + + + + X-RAY CHEST 1 VIEW (08/10/2018 1:55 PM) + + + | Narrative | Performed At | + + + | - At the time of the study, no professional interpretation was | | | requested. - | | + + + X-RAY FLUOROSCOPY IN OR <= 1 HOUR (08/10/2018 1:02 PM) + + + | Narrative | Performed At | + + + | - At the time of the study, no professional interpretation was | | | requested. - | | + + + INTRAPROCEDURE IMAGING (08/10/2018 11:09 AM) + + + | Narrative | Performed At | + + + | See admission or procedure notes for details of any intraprocedure | | | images obtained. | | + + + ANESTHESIA/SEDATION (08/10/2018) + + + | Narrative | Performed At | + + + | | | + + + CARDIOLOGY (08/10/2018) + + + | Narrative | Performed At | + + + | | | + + + in this encounter Visit Diagnoses Not on filein this encounter Admitting Diagnoses + + | Diagnosis | + + | METASTATIC PANCREATIC ADENOCARCINOMA | + + Administered Medications + +--------+ +--------+------+------+ | Medication Order | MAR | Action | Dose | Rate | Site | | | Action | Date | | | | + +--------+ +--------+------+------+ | fentaNYL (SUBLIMAZE) injection | Given | | 25 mcg | | | | 25-50 mcg 25-50 mcg, | | 9 15:19 | | | | | intravenous, POSTPROCEDURE PRN, 8 | | PST | | | | | doses, Starting 08/10/18 at | | | | | | | 1358, Until 08/11/18 at 0016, | | | | | | | severe pain while in Phase I | | | | | | | Recovery | | | | | | + +--------+ +--------+------+------+ +-------+ +--------+---+---+ | Given | | 25 mcg | | | | | 9 15:20 | | | | | | PST | | | | +-------+ +--------+---+---+ | Given | | 25 mcg | | | | | 9 15:30 | | | | | | PST | | | | +-------+ +--------+---+---+ +---+---+ | | | +---+---+ + +-------+ +-------+---+ + | heparin 10,000 unit in NaCl | Given | | 10 mL | | Surgical | | 0.9% 100 mL (100 units/mL) flush | | 9 13:49 | | | Site | | solution INTRAPROCEDURE PRN, | | PST | | | | | Starting 08/10/18 at 1349, | | | | | | | Until Mon08/10/18 at 1443 | | | | | | + +-------+ +-------+---+ + + +---+ | | | + +---+ | HYDROmorphone (DILAUDID) | | | injection 0.2-0.5 mg 0.2-0.5 mg, | | | intravenous, POSTPROCEDURE PRN, | | | Starting Mon08/10/18 at 1359, | | | Until 08/11/18 at 0016, | | | moderate pain while in Phase I | | | Recovery | | + +---+ | | | + +---+ + +---------+ +---+---+---+ | lactated Ringers IV 10 mL/hr, | New Bag | | | | | | intravenous, PROCEDURE | | 9 12:03 | | | | | CONTINUOUS, Starting Mon08/10/18 | | PST | | | | [...] | | | + +---+ | lidocaine (XYLOCAINE) 10 mg/mL | | | (1 %) injection subcutaneous, | | | PREPROCEDURE PRN, Starting Fri | | | 08/10/18 at 1109, Until Sat | | | 08/11/18 at 0016, IV start | | + +---+ | | | + +---+ + +-------+ +------+---+ + | lidocaine 1%-bupivacine 0.5% | Given | | 8 mL | | Surgical | | injection INTRAPROCEDURE PRN, | | 9 13:40 | | | Site | | Starting 08/10/18 at 1340, | | PST | | | | | Until 08/10/18 at 1443 | | | | | | + +-------+ +------+---+ + +-------+ +-------+---+ + | Given | | 17 mL | | Surgical | | | 9 14:24 | | | Site | | | PST | | | | +-------+ +-------+---+ + + +---+ | | | + +---+ | naloxone (NARCAN) injection | | | intravenous, POSTPROCEDURE PRN, | | | Starting 08/10/18 at 1358, | | | Until 08/11/18 at 0016, | | | hypopnea | | + +---+ | | | + +---+ | ondansetron (ZOFRAN) injection | | | 4 mg 4 mg, intravenous, | | | POSTPROCEDURE PRN, 1 dose, | | | Starting 08/10/18 at 1359, | | | Until 08/11/18 at 0016, | | | nausea/vomiting (greater than 6 | | | hours post-operatively) | | + +---+ | | | + +---+ + +-------+ +------+---+---+ | oxyCODONE (immediate release) | Given | | 5 mg | | | | (ROXICODONE) tablet 5 mg 5 mg, | | 9 16:56 | | | | | oral, ONCE, 1 dose, 08/10/18 | | PST | | | | | at 1730 | | | | | | + +-------+ +------+---+---+ + +---+ | | | + +---+ | PHENYLEPHrine 100 mcg/mL IV | | | syringe 50 mcg, intravenous, | | | POSTPROCEDURE PRN, 4 doses, | | | Starting 08/10/18 at 1359, | | | Until 08/11/18 at 0016, | | | systolic blood pressure less than | | | 80 mmHg refractory to IV fluids. | | + +---+ | | | + +---+ + +-------+ +---------+---+---+ | promethazine (PHENERGAN) | Given | | 6.25 mg | | | | injection 6.25-12.5 mg 6.25-12.5 | | 9 15:50 | | | | | mg, intravenous, POSTPROCEDURE | | PST | | | | | PRN, 1 dose, Starting 08/10/18 | | | | | | | at 1359, Until Discontinued, | | | | | | | nausea/vomiting, 1st line | | | | | | + +-------+ +---------+---+---+ +---+---+ | | | +---+---+ in this encounter
--- OUTSIDE RECORDS SUMMARY | ~2018-11-06 | XMS | Encounter Summary ---
Demographics + + + | Address | [address] | | | [place] [address] | + + + | Home Phone [...] | | | | | [place] [address] | | + + + + + Care Team Providers + +------+ + | Care Care Management Specialist Name | Role | Phone | + +------+ + | Piotr Plummer MD | PCP | | + +------+ + Encounter Details +--------+ + + + + | Date | Type | Department | Care Team | Description | +--------+ + + + + | 08/09/ | Oil Spot Washer | Hematology | Toni Mccrary, | Pancreatic | | 2019 | | Oncology Study [address] | ,PhD [address] | adenocarcinoma (HCC) | | | | [address] | [place], [place] | (Primary Dx) | | | | Mailcode: CH7M | [address] | | | | | [facility] | [phone] | | | | | and | | | | | | Floor [place], [place] | | | | | | [address] | | | | | | [phone] | | | +--------+ + + + [...] 11/14/ | Appointment | Hematology & | RnMoustapha | | | 2019 | | Oncology | [address] | | | | | | [place] [address] | | +--------+ + + + + | 11/14/ | Office | Hematology & | Taz Mcneal, | | | 2018 | Visit | Oncology | LO[place] [address] [facility] | | | | | | [address] | | | | | | [place], [place] | | | | | | [address] | | | | | | [phone] | | | | | | | | +--------+ + + + + | 11/14/ | Appointment | Hematology & | B/C, [address] | | | 2018 | | Oncology | [place], | | | | | | [place] [address] | | +--------+ + + + + [...] Rd | | | | | | [place], [place] | | | | | | [address] | | | | | | [phone] | | | | | | | | +--------+ + + + + | 11/28/ | Appointment | Hematology & | B/C, [address] | | | 2018 | | Oncology | [place], | | | | | | [place] [address] | | +--------+ + + + + [...] Rd | | | | | | [place], [place] | | | | | | [address] | | | | | | [phone] | | | | | | | | +--------+ + + + + | 12/12/ | Appointment | Hematology & | B/C, [address] | | | 2019 | | Oncology | [place], | | | | | | [place] [address] | | +--------+ + + + + + +--------+ + + | Name | Priori | Associated Diagnoses | Order Schedule | | | ty | | | + +--------+ + + | RESEARCH TUMOR READING | Urgent | Pancreatic | Expected: 08/13/2018 | | | | adenocarcinoma (HCC) | (Approximate), | | | | | Expires: 09/09/2019 | + +--------+ + + as of this encounter Visit Diagnoses + + | Diagnosis | + + | Pancreatic adenocarcinoma (HCC) - Primary | + + | Malignant neoplasm of pancreas, part unspecified | + +"
--- OUTSIDE RECORDS SUMMARY | ~2018-11-06 | XMS | Encounter Summary ---
Demographics + + + | Address | [address] | | | [place] [address] | + + + | Home Phone [...] | | | | | [place] [address] | | + + + + + Care Team Providers + +------+ + | Care Seafood Service Team Member Name | Role | Phone | + [...] | 2019 | Visit | Oncology at [place] | ,PhD [address] | adenocarcinoma (HCC) | | | | for Health & Healing | [address] [place], [place] | (Primary Dx); Liver | | | | [address] | [address] | metastases (HCC); | | | | Mailcode: Center | [phone] | Encounter for | | | | for Health and | | antineoplastic | | | | Healing, Building [address] | | chemotherapy | | | | [place], [place] | | | | | | [address] | | | | | | [phone] | | | +--------+---------+ + + + [...] ABDOMEN AND PELVIS W IV CONTRAST Order: [id number] Performed: 08/13/2018 13:22 Status: Final result Visible [...] These results were discussed with the surgical technologist on 08/13/2018 at approximately 1:45 PM by [...] | | | | | [place] [address] | | +--------+ + + + + | 11/14/ | Office | Hematology & | Taz Mcneal, | | | 2018 | Visit | Oncology | PA-C [address] | | | | | | [address] | | | | | | [place] | | | | | | [address] | | | | | | [phone] | | | | | | | | +--------+ + + + + | 11/14/ | Appointment | Hematology & | B/C, [address] | | | 2018 | | Oncology | [place] | | | | | | [place] [address] | | +--------+ + + + + | 11/28/ | Clinical | | | | | 2018 | Support | | | | | | Staff | | | | +--------+ + + + + | 11/28/ | Office | Hematology & | Taz Mcneal, | | | 2018 | Visit | Oncology | PA-C [address] | | | | | | [address] | | | | | | [place] | | | | | | [address] | | | | | | [phone] | | | | | | | | +--------+ + + + + | 11/28/ | Appointment | Hematology & | B/C, [address] | | | 2019 | | Oncology | [place] | | | | | | [place] [address] | | +--------+ + + + + | 12/12/ | Clinical | | | | | 2018 | Support | | | | | | Staff | | | | +--------+ + + + + | 12/12/ | Office | Hematology & | Taz Mcneal, | | | 2018 | Visit | Oncology | O[place] [address] [facility] | | | | | | [address] | | | | | | [place] | | | | | | [address] | | | | | | [phone] | | | | | | | | +--------+ + + + + | 12/12/ | Appointment | Hematology & | B/C, [address] | | | 2018 | | Oncology | [place] | | | | | | [place] [address] | | +--------+ + + + + [...]
--- OUTSIDE RECORDS SUMMARY | ~2018-11-06 | XMS | Encounter Summary ---
Demographics + + + | Address | [address] | | | [place] [address] | + + + | Home Phone [...] | | | | | [place] [address] | | + + + + + Care Team Providers + +------+ + | Care Bioinformatics Specialist Name | Role | Phone | [...] Description | +--------+--------+ + + + | 04/15/ | Refill | Hematology/Medical | HermannToni, | Refill Request | | 2019 | | Oncology at [place] | ,PhD [address] | | | | | for Health & Healing | [place], [place] | | | | | [address] | [address] | | | | | Mailcode: [place] | [phone] | | | | | for Health and | | | | | | Healing, [address] | | | | | | [place], [place] | | | | | | [address] | | | | | | [phone] | | | +--------+--------+ + + + [...] [address] | | | | | | [place] [address] | | +--------+ + + + + | 11/14/ | Office | Hematology & | Taz Mcneal, | | | 2018 | Visit | Oncology | PA-C [address] | | | | | | [address] | | | | | | [place], [place] | | | | | | [address] | | | | | | [phone] | | | | | | | | +--------+ + + + + | 11/14/ | Appointment | Hematology & | B/C, [address] | | | 2018 | | Oncology | [place] | | | | | | [place] [address] | | +--------+ + + + + [...] Rd | | | | | | [place], [place] | | | | | | [address] | | | | | | [phone] | | | | | | | | +--------+ + + + + | 11/28/ | Appointment | Hematology & | B/C, [address] | | | 2018 | | Oncology | [place], | | | | | | [place] [address] | | +--------+ + + + + [...] [place] | | | | | | [address] | | | | | | [phone] | | | | | | | | +--------+ + + + + | 12/12/ | Appointment | Hematology & | B/C, [address] | | | 2019 | | Oncology | [place], | | | | | | [place] [address] | | +--------+ + + + + [...]
--- OUTSIDE RECORDS SUMMARY | ~2018-11-06 | XMS | Encounter Summary ---
Demographics + + + | Address | [address] | | | [place] [address] | + + + | Home Phone [...] | | | | | [place] [address] | | + + + + + Care Team Providers + +------+ + | Care Any Commodity Sales Deliverer Name | Role | Phone | + [...] Description | +--------+---------+ + + + | 09/19/ | Office | Hematology/Medical | Taz Mcneal, | Liver metastases | | 2019 | Visit | Oncology at Center | PA-C [address] | (HCC) (Primary Dx); | | | | for Health & Healing | [address] | Pancreatic | | | | [address] | [place], [place] | adenocarcinoma | | | | Mailcode: Center | [address] | (HCC); Encounter for | | | | for Health and | [phone] | antineoplastic | | | | Healing, [address] | | chemotherapy; | | | | [place], [place] | | Pancreatic | | | | [address] | | insufficiency; | | | | [phone] | | Embolism due to any | | | | | | device, implant or | | | | | | graft, subsequent | | | | | | encounter | +--------+---------+ + + + Social History [...] + + + as of this encounter Progress Notes Taz Mcneal PA-C - 09/19/2018 2:30 PM PSTFormatting of this note may be [...] pain. CT without acute findings. Interim history: Elaine returns with her and daughter. She says that she has been feeling much valentin r since starting her current chemotherapy regimen, specifically since starting CREON. She sa ys that since starting CREON she has noticed a significant improvement in her abdominal pain and bowel regularity, associated with some increased abdominal "swelling". She still takes 1/2 tab oxycodone PRN occasionally for abdominal pain. She has noticed new mild abdominal sw elling that has gradually increased since starting chemotherapy. She also has been using THC and CBD for nausea/appetite and pain respectively. Review of systems: Review of systems were obtained and reviewed with the patient today. Ple ase reference the scanned questionnaire, see HPI for pertinent positives. I reviewed the entire the patient completed return visit health update and review of system s as documented in the EMR. Lab Results Component Value Date WBC 6.8 09/19/2018 RBC 3.97 (L) 09/19/2018 HCT 34.4 (L) 09/19/2018 HB 10.9 (L) 09/19/2018 MCV 86.6 09/19/2018 MCH 27.5 09/19/2018 MCHC 31.7 (L) 09/19/2018 PLT 463 (H) 09/19/2018 NEUTROPERC 81.4 (H) 08/13/2018 LYMPHPERC 8.8 (L) 08/13/2018 MONOPERC 12.0 (H) 09/19/2018 EOSPERC 4.4 (H) 09/19/2018 BASOPERC 1.2 09/19/2018 NEUTROPHILCO 4.7 09/19/2018 GLU 94 09/19/2018 BUN 10 09/19/2018 CR <0.5 (L) 09/19/2018 TP 7.2 09/19/2018 ALB 3.5 09/19/2018 CA 9.4 09/19/2018 TBILI 0.5 09/19/2018 AP 308 (H) 09/19/2018 AST 33 09/19/2018 NA 141 09/19/2018 K 3.9 09/19/2018 CL 104 09/19/2018 BICARB 30 (H) 09/19/2018 ALT 76 (H) 09/19/2018 Physical Exam: Vitals 09/19/2018 Systolic 113 Diastolic 67 Pulse 86 Temperature 98.9 Respirations 16 Weight 55.611 kg (122 lb 9.6 oz) Height (in) Height (cm) BMI SpO2 98 BSA 1.57 m2 Pain Scale 01 - None to Mild Pain Location Abdomen (LLQ) General: Well developed, well nourished, adult female patient awake and alert. HEENT: + Alopecia. Anicteric sclerae. Oropharynx clear, mucous membranes moist. No sinus co ngestion, mucositis, or thrush. Chest: CTAB; No crackles, cough, wheezing, or stridor. Relaxed respiratory effort. CV: RRR, no murmurs or gallops. Abd: Soft, mild diffuse tenderness to palpation, nondistended, no ascites. Normoactive rusty l sounds. Skin: Dry and warm. No rashes or ecchymoses. Ext: Warm, well perfused. No LE edema. Neuro: A&O. No facial asymmetries. No gait abnormalities, no tremor. No memory deficits derek reciated. Psych: Pleasant, conversant, affect appropriate. Lines: Port NT, no erythema. ECO Lab Results Component Value Date CA199 4,451.4 09/19/2018 CA199 6,647.5 09/05/2018 CA199 8,292.6 08/29/2018 Lab Results Component Value Date WBC 6.8 09/19/2018 HB 10.9 09/19/2018 HCT 34.4 09/19/2018 PLT 463 09/19/2018 MCV 86.6 09/19/2018 RDW 37.8 08/22/2018 Lab Results Component Value Date NA 141 09/19/2018 K 3.9 09/19/2018 CL 104 09/19/2018 BICARB 30 09/19/2018 BUN 10 09/19/2018 CR <0.5 09/19/2018 GLU 94 09/19/2018 CA 9.4 09/19/2018 AST 33 09/19/2018 ALT 76 09/19/2018 AP 308 09/19/2018 TBILI 0.5 09/19/2018 TP 7.2 09/19/2018 ALB 3.5 09/19/2018 CT ABDOMEN AND PELVIS W IV CONTRAST Order: [id number] Performed: 08/13/2018 13:22 Status: Final result Visible [...] These results were discussed with the surgical nurse practitioner on 08/13/2018 at approximately 1:45 PM by [...] disease progression noted in short interval scan. --Regimen well tolerated so far --Proceed with C2D1 [place]/Abraxane today (09/20/2018) --I discussed the goals, objectives, risks, benefits, and toxicities of therapy and the pat ient wishes to proceed. --Will need close and frequent monitoring physical examinations and laboratory monitoring f or toxicities of ongoing cytotoxic chemotherapy. # Nutrition: Rosemarie Galan following - continue CREON per nutrition recs Taz Mcneal PA-C HEMATOLOGY/MEDICAL ONCOLOGY AT [facility] [address] Mailcode: [place] [address] in this encounter Plan of Treatment +--------+ + + + + | Date | Type | Specialty | Care Team | Description | +--------+ + + + + | 11/14/ | Appointment | Hematology & | Moustapha Sher | | | 2019 | | Oncology | [address] | | | | | | [place] [address] | | +--------+ + + + + | 11/14/ | Office | Hematology & | aTz Mcneal, | | | 2019 | Visit | Oncology | [place] [address] | | | | | | [address] | | | | | | [place], [place] | | | | | | [address] | | | | | | [phone] | | | | | | | | +--------+ + + + + | 11/14/ | Appointment | Hematology & | B/C, [address] | | | 2018 | | Oncology | [place], | | | | | | [place] [address] | | +--------+ + + + + | 11/28/ | Clinical | | | | | 2018 | Support | | | | | | Staff | | | | +--------+ + + + + | 11/28/ | Office | Hematology & | Taz Mcneal, | | | 2018 | Visit | Oncology | [place] [address] | | | | | | [address] | | | | | | [place], [place] | | | | | | [address] | | | | | | [phone] | | | | | | | | +--------+ + + + + | 11/28/ | Appointment | Hematology & | B/C, [address] | | | 2018 | | Oncology | [place], | | | | | | [place] [address] | | +--------+ + + + + [...] [place] | | | | | | [address] | | | | | | [phone] | | | | | | | | +--------+ + + + + | 12/12/ | Appointment | Hematology & | B/C, [address] | | | 2019 | | Oncology | [place] | | | | | | [place] [address] | | +--------+ + + + + as of this encounter Visit Diagnoses + + | Diagnosis | + + | Liver metastases (HCC) - Primary | + + | Secondary malignant neoplasm of liver | + + | Pancreatic adenocarcinoma (HCC) | + + | Malignant neoplasm of pancreas, part unspecified | + + | Encounter for antineoplastic chemotherapy | + + | Pancreatic insufficiency | + + | Other specified disease of pancreas | + + | Embolism due to any device, implant or graft, subsequent encounter | + +
--- OUTSIDE RECORDS SUMMARY | ~2018-11-06 | XMS | Encounter Summary ---
Demographics + + + | Address | [address] | | | [place] [address] | + + + | Home Phone [...] | | | | | [place] [address] | | + + + + + Care Team Providers + +------+ + | Care Stringed Instrument Assembler Name | Role | Phone | [...] | | 2019 | | Oncology at [place] | ,PhD [address] | | | | | for Health & Healing | [place], [place] | | | | | [address] | [address] | | | | | Mailcode: [place] | [phone] | | | | | for Health and | | | | | | Healing, [address] | | | | | | [place], [place] | | | | | | [address] | | | | | | [phone] | | | +--------+ + + + [...] [address] | | | | | | [place] [address] | | +--------+ + + + + | 11/14/ | Office | Hematology & | Taz Mcneal, | | | 2018 | Visit | Oncology | PA-C [address] | | | | | | [address] | | | | | | [place] | | | | | | [address] | | | | | | [phone] | | | | | | | | +--------+ + + + + | 11/14/ | Appointment | Hematology & | B/C, [address] | | | 2019 | | Oncology | [place] | | | | | | [place] [address] | | +--------+ + + + + [...] Rd | | | | | | [place], [place] | | | | | | [address] | | | | | | [phone] | | | | | | | | +--------+ + + + + | 11/28/ | Appointment | Hematology & | B/C, [address] | | | 2018 | | Oncology | [place], | | | | | | [place] [address] | | +--------+ + + + + [...] | | | | | | [facility] [place], [place] | | | | | | [address] | | | | | | [phone] | | | | | | | | +--------+ + + + + | 12/12/ | Appointment | Hematology & | B/C, [address] | | | 2019 | | Oncology | [place], | | | | | | [place] [address] | | +--------+ + + + + as of this encounter Visit Diagnoses Not on filein this encounter"
--- OUTSIDE RECORDS SUMMARY | ~2018-11-06 | XMS | Encounter Summary ---
Demographics + + + | Address | [address] | | | [place] [address] | + + + | Home Phone [...] | | | | | [place] [address] | | + + + + + Care Team Providers + +------+ + | Care Manager Floral Name | Role | Phone | + +------+ + | Piotr Plummer MD | PCP | | + +------+ + Encounter Details +--------+ + + + + | Date | Type | Department | Care Team | Description | +--------+ + + + + | 10/16/ | Procedure | Radiology/Imaging | | | | 2019 | Pass | Lab at [facility] [address] | | | | | | SE[address]ela Farley | | | | | | Mailcode: CH3G | | | | | | [facility] | | | | | | and Healing, 3rd | | | | | | Floor [place], [place] | | | | | | [address] | | | | | | [phone] | | | +--------+ + + + [...] | | 2018 | | Oncology | [address] | | | | | | [place] [address] | | +--------+ + + + + | 11/14/ | Office | Hematology & | Taz Mcneal, | | | 2019 | Visit | Oncology | FABIANA-C [address] | | | | | | [address] | | | | | | [place], [place] | | | | | | [address] | | | | | | [phone] | | | | | | | | +--------+ + + + + | 11/14/ | Appointment | Hematology & | B/C, Pod [address] | | | 2018 | | Oncology | [place], | | | | | | [place] [address] | | +--------+ + + + + [...] Rd | | | | | | [place], [place] | | | | | | [address] | | | | | | [phone] | | | | | | | | +--------+ + + + + | 11/28/ | Appointment | Hematology & | B/C, [address] | | | 2019 | | Oncology | [place], | | | | | | [place] [address] | | +--------+ + + + + | 12/12/ | Clinical | | | | | 2018 | Support | | | | | | Staff | | | | +--------+ + + + + | 12/12/ | Office | Hematology & | Taz Mcneal, | | | 2018 | Visit | Oncology | PA-C [address] [facility] | | | | | | [address] | | | | | | [place] | | | | | | [address] | | | | | | [phone] | | | | | | | | +--------+ + + + + | 12/12/ | Appointment | Hematology & | B/C, [address] | | | 2019 | | Oncology | [place], | | | | | | [place] [address] | | +--------+ + + + + as of this encounter Visit Diagnoses Not on filein this encounter"
--- OUTSIDE RECORDS SUMMARY | ~2018-11-06 | XMS | Encounter Summary ---
Demographics + + + | Address | [address] | | | [place] [address] | + + + | Home Phone [...] | | | | | [place] [address] | | + + + + + Care Team Providers + +------+ + | Care Outreach Worker Name | Role | Phone | + +------+ + | Piotr Plummer MD | PCP | | + +------+ + Reason for Visit + + + | Reason | Comments | + + + | Prior Authorization | apixaban 5 mg (74 tabs) oral tablets,dose pack | | Request | | + + + Encounter Details +--------+ + + + + | Date | Type | Department | Care Team | Description | +--------+ + + + + | 09/04/ | Telephone | Hematology/Medical | Toni Mccrary, | Prior Authorization | | 2019 | | [facility] | ,PhD [address] | Request (apixaban 5 | | | | for Health & Healing | [place], [place] | mg (74 tabs) oral | | | | [address] | [address] | tablets,dose pack) | | | | Mailcode: [facility] | [phone] | | | | | for Health and | | | | | | Healing, [address] | | | | | | [place], [place] | | | | | | [address] | | | | | | [phone] | | | +--------+ + + + [...] Rd | | | | | | [place] [address] | | +--------+ + + + + | 11/14/ | Office | Hematology & | Taz Mcneal, | | | 2019 | Visit | Oncology | OLYA [address] | | | | | | [address] | | | | | | [place], [place] | | | | | | [address] | | | | | | [phone] | | | | | | | | +--------+ + + + + | 11/14/ | Appointment | Hematology & | B/C, [address] | | | 2019 | | Oncology | [place], | | | | | | [place] [address] | | +--------+ + + + + | 11/28/ | Clinical | | | | | 2018 | Support | | | | | | Staff | | | | +--------+ + + + + | 11/28/ | Office | Hematology & | Taz Mcneal, | | | 2018 | Visit | Oncology | PA-C [address] [facility] | | | | | | [address] | | | | | | [place] | | | | | | [address] | | | | | | [phone] | | | | | | | | +--------+ + + + + | 11/28/ | Appointment | Hematology & | B/C, [address] | | | 2019 | | Oncology | [place] | | | | | | [place] [address] | | +--------+ + + + + | 12/12/ | Clinical | | | | | 2019 | Support | | | | | | Staff | | | | +--------+ + + + + | 12/12/ | Office | Hematology & | Taz Mcneal, | | | 2018 | Visit | Oncology | PA-Cindy [address] | | | | | | [address] | | | | | | [place] | | | | | | [address] | | | | | | [phone] | | | | | | | | +--------+ + + + + | 12/12/ | Appointment | Hematology & | B/C, [address] | | | 2019 | | Oncology | [place] | | | | | | [place] [address] | | +--------+ + + + + as of this encounter Visit Diagnoses Not on filein this encounter"
--- OUTSIDE RECORDS SUMMARY | ~2018-11-06 | XMS | Encounter Summary ---
Demographics + + + | Address | [address] | | | [place] [address] | + + + | Home Phone | | + + + | Preferred Language | Unknown | + + + | Marital Status | | + + + | Hinduism Affiliation | NRP | + + + [...] | | | | | [place] [address] | | + + + + + Care Team Providers + +------+ + | Care Stem Lead Former Name | Role | Phone | + +------+ + | Piotr Plummer MD | PCP | | + +------+ + Reason for Visit + + + | Reason | Comments | + + + | New Patient Visit | pancreatic adenocarcinoma, post-chemo abdominal bloating and | | | frequent bowel movements | + + + Encounter Details +--------+---------+ + + + | Date | Type | Department | Care Team | Description | +--------+---------+ + + + | 09/12/ | Office | Hematology/Medical | Dinesh Santiago, | Pancreatic | | 2019 | Visit | [facility] at [place] | MICHELE,ACHPN [address] | adenocarcinoma (HCC) | | | | [facility] | [facility] [address] | (Primary Dx); | | | | [address] | [place], [place] | Abdominal bloating | | | | Mailcode: [place] | [address] | with cramps; | | | | for Health and | [phone] | Pancreatic | | | | [facility] | | insufficiency; | | | | [place], [place] | | Advanced care | | | | [address] | | planning/counseling | | | | [phone] | | discussion | +--------+---------+ + + + Social History [...] + + + | Blood Pressure | 137/73 | 09/12/2018 8:39 AM PST | + + + + | Pulse | 91 | 09/12/2018 8:39 AM PST | + + + + | Temperature | 36.9 C (98.5 F) | 09/12/2018 8:39 AM PST | + + + + | Respiratory Rate | 16 | 09/12/2018 8:39 AM PST | + + + + | Oxygen Saturation | 100% | 09/12/2018 8:39 AM PST | + + + + | Inhaled Oxygen | - | - | | Concentration | | | + + + + | Weight | 55.4 kg (122 lb 3.2 | 09/12/2018 8:39 AM PST | | | oz) | | + + + + | Height | - | - | + + + + | Body Mass Index | 21.65 | 09/12/2018 8:39 AM PST | + + + + in this encounter Instructions Patient Instructions - Luisa Hayes MD - 09/12/2018 8:30 AM PSTDeath with Dignity : We will place referral to Dr. Winchester. Other resources End Of Life [place] and [facility] For pancreatic enzymes: will discuss with Rosemarie starting Creon (pancreatic enzymes). This should help with GI upset, multiple stools, and bloating. You can stop miralax in the meanti me to see if symptoms improve. Please review advanced directive packet and we can discuss further at the next visit. We en courage you to discuss with your daughters as well. in this encounter Progress Notes Dinesh Santiago ANP, ACHPN - 09/12/2018 8:30 AM PSTI saw and evaluated the patient with Luisa Hayes MD, who conducted the history. I reviewed the history in detail. I was present for the examination and formulation portions of the encounter. I agree with the find ings and the plan of care as documented in this note, and I edited the trainee's note. I spent 85 minutes with the patient. Greater than 50% of the time was spent counseling the patient regarding goals of care, symptom review. MICHELE Page,Dinesh Solis ANP, ACHPN - 09/12/2018 8:30 AM PSTSupportive Oncology & Palliative Care Elaine Goode is a 73 y.o. woman with metastatic pancreatic adenocarcinoma. I am consul agata by Dr. Toni Mccrary to assist with pain and symptom management, advance care planning. Assessment and Plan: Elaine was seen today for new patient visit. Diagnoses and all orders for this visit: Pancreatic adenocarcinoma (HCC) Abdominal bloating with cramps Pancreatic insufficiency Suspect worsening many bowel movements with bloating due to pancreatic insufficiency after chemotherapy. - stop miralax scheduled, can use prn for constipation - start creon with meals and snacks - dicussed with [employer] who agrees with trial of creon. She will follow up with Elaine on sx. Advanced care planning/counseling discussion - advanced directives discussed and packet given to Elaine and . They will look over and try to complete. Will f/u next visit with questions or concerns - discussed POLST, will complete next visit - referral to Dr. Winchester for interest with DWD - advised Elaine that our SW could reach out to her daughters (with Elaine's permission) vi a phone or at future appointment for community resources for support groups. Also recommende d they reach out to MH providers in their community. The Patient was staffed with Dinesh Santiago NP who agrees with my assessment and plan. Follow up In 4 weeks for f/u of AD and POLST and sx managment. Sooner prn. Luisa Hayes M.D. Internal Medicine PGY-3 Pager [phone] Subjective/Objective: Elaine presents with her Elsa. (1) What is their understanding of their health or condition? Elaine understanding that her cancer is "terminal" and noncurative. She understands chemotherapy is palliative. (2) What are their goals if their health worsens? She is hoping chemotherapy will give her more time with family particularly with her oldest daughter expecting her first child. She is able to handle the fatigue associated with chemotherapy but finds bloating, frequent rusty l movements, and abdominal cramping significant and limiting. She expresses interest in with dignity (DWD). Reports her sister's of ca ncer and was suffering and " a horrible ." She wants to have control of her i f possible. Has been doing research online and wants to make first request. (3) What are their fears? That cancer will progress quickly and she will not get to see th e of her grandchild. Also fearful that her daughters have mental health needs regardfranchesca Henry's diagnosis and wants them to get MH services We discussed the following issues: 1. Symptoms: Abdominal pain improving with chemotherapy. Using minimal oxycodone (2.5 mg every few days) . Questions if this means chemo is working or if something is being masked. She reports significant fatigue after chemotherapy starting 2 days after and lasting up to 5-6 days after. This is debilitating but tolerable. What bothers her most is bloating, numer ous formed bowel movements, and gas, flatuence worse days 2-6 after chemotherapy. She has tr ied gas-x with some benefit but minimal. She and her Elsa question if daily miralax maybe worsening sx as she is not using opioids frequently. Worse after eating. Even water c auses this. Minimal nausea but some controlled with compazine. No emesis. Reports mood is okay. "dark thoughts" after chemotherapy when fatigued but she can handle t hem on her one. Not feeling need to see a counselor. 2. Advanced care planning Inquires about completing advanced directive. Discussed importance of POLST form in case th e need for EMS services. DWD as discussed above. Oncology History (from Dr. Mccrary's note): Several month history of abdominal discomfort, bloating, [...] inadequately controlled pain. CT without acute findings. We were planning to consent and enroll her on the first-line gemcitabine/Abraxane plus sanjay s BBI 608. (Morpheus trial is closed for frontline combination immunotherapeutic arm) bu t unable because of urgent evaluation due post lap pain. Of note, disease progression noted in short interval scan. --plan to start SOC gem/abraxane given pace of disease. Social History: to Elsa. 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 2 ad ult daughter, oldest expecting first grandchild. Other daughter in [facility] getting PhD. Pertinent Medical History: Cataracts GERD IBS Legionnaire's disease CAMERON Chronic anticoagulation Current Outpatient Prescriptions: acetaminophen 500 mg oral tablet, Take 500 mg by mouth ev vic six hours as needed., Disp: , Rfl: apixaban 5 mg (74 tabs) oral tablets,dose pack, Take 2 tablets by mouth twice daily for 7 d ays then take 1 tablet by mouth twice daily., Disp: 74 tablet, Rfl: 0 docusate sodium (COLACE) 100 mg oral capsule, Take 1 capsule by mouth two times daily. (Pat ient taking differently: Take 100 mg by mouth twice daily as needed. ), Disp: , Rfl: Fish Oil-[place]-3 Fatty Acids 340-1,000 mg oral capsule, Take 1 capsule by mouth once daily. , Disp: , Rfl: ibuprofen 200 mg oral tablet, Take 400 mg by mouth every six hours as needed., Disp: , Rfl: lidocaine-prilocaine 2.5-2.5 % topical cream, Apply a thick layer to intact skin and cover with an occlusive dressing., Disp: 30 g, Rfl: 7 loperamide 2 mg oral capsule, Take 2 caps initially then 1 cap every 2 hours until diarrhea free for 12 hours as needed., Disp: 30 capsule, Rfl: 5 LORazepam 1 mg oral tablet, Take 0.5-1 tablets by mouth every six hours as needed (second l ine for nausea or for sleep)., Disp: 30 tablet, Rfl: 5 metoprolol succinate 25 mg oral tablet extended release 24 hr, Take 1 tablet (25 mg) by panfilo th every morning and 2 tablets (50 mg) by mouth every evening, Disp: , Rfl: multivitamin oral tablet, Take 1 tablet by mouth once daily. , Disp: , Rfl: nitroglycerin 400 mcg/spray translingual spray,non-aerosol, Place under tongue., Disp: , Rf l: omeprazole 40 mg oral capsule,delayed release(DR/EC), Take 1 capsule by mouth once daily. A dminister 30 to 60 minutes before meals, Disp: 30 capsule, Rfl: 9 oxyCODONE (immediate release) 5 mg oral tablet, Take 1-3 tablets by mouth every four hours as needed for severe pain., Disp: 50 tablet, Rfl: 0 prochlorperazine 10 mg oral tablet, Take 0.5-1 tablets by mouth every six hours as needed f or nausea/vomiting. Max dose: 40 mg/day, Disp: 60 tablet, Rfl: 5 traZODone 50 mg oral tablet, Take 1 tablet by mouth at bedtime as needed, Disp: , Rfl: Exam: BP 137/73 (BP Location: Left upper arm, Patient Position: Sitting) | Pulse 91 | Tem p 36.9 C (98.5 F) (Oral) | Resp 16 | Wt 55.4 kg (122 lb 3.2 oz) | SpO2 100% | BMI 21 .65 kg/m | BSA 1.57 m General: middle aged woman with paucity of hair in NAD Psych: occasionally tearful, forward thinking but realistic. I spent 85 minutes with the patient. Greater than 50% of the time was spent counseling the patient regarding advanced care planning and symptom management. The Patient was staffed with Dinesh Santiago NP who agrees with my assessment and plan. Luisa Hayes M.D. Internal Medicine PGY-3 Pager [phone] in this encounter Plan of Treatment +--------+ + + + + | Date | Type | Specialty | Care Team | Description | +--------+ + + + + | 11/14/ | Appointment | Hematology & | Moustapha Sher | | | 2019 | | Oncology | [address] | | | | | | [place] [address] | | +--------+ + + + + | 11/14/ | Office | Hematology & | Taz Mcneal, | | | 2018 | Visit | Oncology | OLYA [address] | | | | | | [address] | | | | | | [place], [place] | | | | | | [address] | | | | | | [phone] | | | | | | | | +--------+ + + + + | 11/14/ | Appointment | Hematology & | B/C, Pod [address] | | | 2019 | | Oncology | [place], | | | | | | [place] [address] | | +--------+ + + + + [...] Rd | | | | | [facility] | | | | | | [address] | | | | | | [phone] | | | | | | | | +--------+ + + + + | 11/28/ | Appointment | Hematology & | B/C, [address] | | | 2019 | | Oncology | [place] | | | | | | [place] [address] | | +--------+ + + + + | 12/12/ | Clinical | | | | | 2018 | Support | | | | | | Staff | | | | +--------+ + + + + | 12/12/ | Office | Hematology & | Taz Mcneal, | | | 2018 | Visit | Oncology | PALjC [address] [facility] | | | | | | [address] | | | | | | [place] | | | | | | [address] | | | | | | [phone] | | | | | | | | +--------+ + + + + | 12/12/ | Appointment | Hematology & | B/C, [address] | | | 2019 | | Oncology | [place] | | | | | | [place] [address] | | +--------+ + + + + as of this encounter Visit Diagnoses + + | Diagnosis | + + | Pancreatic adenocarcinoma (HCC) - Primary | + + | Malignant neoplasm of pancreas, part unspecified | + + | Abdominal bloating with cramps | + + | Pancreatic insufficiency | + + | Other specified disease of pancreas | + + | Advanced care planning/counseling discussion | + + | Other specified counseling | + +
--- OUTSIDE RECORDS SUMMARY | ~2018-11-06 | XMS | Encounter Summary ---
Demographics + + + | Address | [address] | | | [place] [address] | + + + | Home Phone [...] | | | | | [place] [address] | | + + + + + Care Team Providers + +------+ + | Care Travel Manager Name | Role | Phone | [...] | 2019 | Encounter | [facility] | ,PhD [address] | | | | | for Health & Healing | [place], [place] | | | | | [address] | [address] | | | | | Mailcode: [facility] | [phone] | | | | | for Health and | | | | | | [facility] | | | | | | [place], [place] | | | | | | [address] | | | | | | [phone] | | | +--------+ + + + [...] Rd | | | | | | [place] [address] | | +--------+ + + + + | 11/14/ | Office | Hematology & | Taz Mcneal, | | | 2018 | Visit | Oncology | OLYA [address] | | | | | | [address] | | | | | | [place] | | | | | | [address] | | | | | | [phone] | | | | | | | | +--------+ + + + + | 11/14/ | Appointment | Hematology & | B/C, Pod [address] | | | 2019 | | Oncology | [place], | | | | | | [place] [address] | | +--------+ + + + + [...] [place] | | | | | | [address] | | | | | | [phone] | | | | | | | | +--------+ + + + + | 11/28/ | Appointment | Hematology & | B/C, Pod [address] | | | 2018 | | Oncology | [place], | | | | | | [place] [address] | | +--------+ + + + + [...] Rd | | | | | | [place] | | | | | | [address] | | | | | | [phone] | | | | | | | | +--------+ + + + + | 12/12/ | Appointment | Hematology & | B/C, [address] | | | 2019 | | Oncology | [place], | | | | | | [place] [address] | | +--------+ + + + + as of this encounter Visit Diagnoses Not on filein this encounter"
--- OUTSIDE RECORDS SUMMARY | ~2018-11-06 | XMS | Encounter Summary ---
Demographics + + + | Address | [address] | | | [place] [address] | + + + | Home Phone [...] Author | [facility] | + + + | Organization | [facility] | + + + | Address | Unknown | + + + | Phone | Unavailable | + + + Support + + + + + | Name | Relationship | Address | Phone | + + + + + | ELSA GOODE | ECON | [address] | | | | | [place] [address] | | + + + + + Care Team Providers + +------+ + | Care Station Gateman Name | Role | Phone | + +------+ + | Piotr Plummer MD | PCP | | + +------+ + Reason for Visit + + + | Reason | Comments | + + + | Telephone follow-up | cycle 1, day 1 of gemcitabine, Abraxane | + + + | Treatment Questions | | + + + Encounter Details +--------+ + + + + | Date | Type | Department | Care Team | Description | +--------+ + + + + | 08/23/ | Telephone | Hematology/Medical | Toni Mccrary, | Telephone follow-up | | 2019 | | [facility] [place] | ,PhD [address] | (cycle 1, day 1 of | | | | for Health & Healing | [address] [facility] [place] | gemcitabine, | | | | [address] | [address] | Abraxane); Treatment | | | | Mailcode: [place] | [phone] | Questions | | | | for Health and | | | | | | Healing, [address] | | | | | | [place], [place] | | | | | | [address] | | | | | | [phone] | | | +--------+ + + + [...] Rd | | | | | | [place] [address] | | +--------+ + + + + | 11/14/ | Office | Hematology & | Taz Mcneal, | | | 2018 | Visit | Oncology | O[place] [address] | | | | | | [address] | | | | | | [place], [place] | | | | | | [address] | | | | | | [phone] | | | | | | | | +--------+ + + + + | 11/14/ | Appointment | Hematology & | B/C, [address] | | | 2019 | | Oncology | [place], | | | | | | [place] [address] | | +--------+ + + + + [...] [place] | | | | | | [address] | | | | | | [phone] | | | | | | | | +--------+ + + + + | 11/28/ | Appointment | Hematology & | B/C, [address] | | | 2019 | | Oncology | [place], | | | | | | [place] [address] | | +--------+ + + + + | 12/12/ | Clinical | | | | | 2018 | Support | | | | | | Staff | | | | +--------+ + + + + | 12/12/ | Office | Hematology & | Taz Mcneal, | | | 2018 | Visit | Oncology | OLYA [address] [facility] | | | | | | [address] | | | | | | [place] | | | | | | [address] | | | | | | [phone] | | | | | | | | +--------+ + + + + | 12/12/ | Appointment | Hematology & | B/C, [address] | | | 2019 | | Oncology | [place] | | | | | | [place] [address] | | +--------+ + + + + as of this encounter Visit Diagnoses Not on filein this encounter"
--- OUTSIDE RECORDS SUMMARY | ~2018-11-06 | XMS | Encounter Summary ---
Demographics + + + | Address | [address] | | | [place] [address] | + + + | Home Phone | | + + + | Preferred Language | Unknown | + + + | Marital Status | | + + + | Buddhist Affiliation | NRP | + + + [...] | | | | | [place] [address] | | + + + + + Care Team Providers + +------+ + | Care Fund Manager Name | Role | Phone | [...] | | | | | Liver | [place], | [place], [place] | | | | | metastases | [place] | [address] | | | | | (HCC) | [address] | Phone: | | | | | Procedures | Phone: | [phone] | | | | | CONSULT TO | [phone] | Fax: | | | | | ADULT OUTPT | Fax: | [phone] | | | | | SUPPORTIVE | [phone] | | | | | | ONCOLOGY/PAL [...] | 2019 | on | [facility] [place] | ,PhD [address] | | | | | for Health & Healing | [address] [place], [place] | | | | | [address] | [address] | | | | | Mailcode: [place] | [phone] | | | | | for Health and | | | | | | [facility] [address] | | | | | | [place], [place] | | | | | | [address] | | | | | | [phone] | | | +--------+ + + + [...] | | | | | [place] [address] | | +--------+ + + + + | 11/14/ | Office | Hematology & | Taz Mcneal, | | | 2018 | Visit | Oncology | O[address]A [address] | | | | | | [address] | | | | | | [place] | | | | | | [address] | | | | | | [phone] | | | | | | | | +--------+ + + + + | 11/14/ | Appointment | Hematology & | B/C, [address] | | | 2019 | | Oncology | [place], | | | | | | [place] [address] | | +--------+ + + + + [...] [place] | | | | | | [address] | | | | | | [phone] | | | | | | | | +--------+ + + + + | 11/28/ | Appointment | Hematology & | B/C, [address] | | | 2018 | | Oncology | [place], | | | | | | [place] [address] | | +--------+ + + + + | 12/12/ | Clinical | | | | | 2018 | Support | | | | | | Staff | | | | +--------+ + + + + | 12/12/ | Office | Hematology & | Taz Mcneal, | | | 2018 | Visit | Oncology | PALjC [address] | | | | | | [address] | | | | | | [place], [place] | | | | | | [address] | | | | | | [phone] | | | | | | | | +--------+ + + + + | 12/12/ | Appointment | Hematology & | B/C, [address] | | | 2018 | | Oncology | [place], | | | | | | [place] [address] | | +--------+ + + + + as of this encounter Visit Diagnoses + + | Diagnosis | + + | Pancreatic adenocarcinoma (HCC) - Primary | + + | Malignant neoplasm of pancreas, part unspecified | + + | Liver metastases (HCC) | + + | Secondary malignant neoplasm of liver | + +"
--- OUTSIDE RECORDS SUMMARY | ~2018-11-06 | XMS | Encounter Summary ---
Demographics + + + | Address | [address] | | | [place] [address] | + + + | Home Phone [...] | | | | | [place] [address] | | + + + + + Care Team Providers + +------+ + | Care Fretted Instrument Maker Hand Name | Role | Phone | [...] | | | | Mailcode: Center | [address] | Biliary obstruction | | | | for Health and | [phone] | due to cancer (HCC); | | | | Healing, Building [address] | | Pancreatic | | | | [place], [place] | | insufficiency; | | | | [address] | | Encounter for | | | | [phone] | | antineoplastic | | | | [...] in this encounter Instructions Patient Instructions - Tza Mcneal PA-C - 10/31/2018 11:50 AM PDTElaine, [...] clinic hours please call the clinic at [phone]. Evenings, weekends and holidays please call [phone] and ask to have the oncologist family and consumer sciences teacher paged. in this encounter Progress Notes Taz [...] placement of metal biliary stent 10/31/18: C3 [place] Interim history: Since her last visit, Elaine [...] 1. Metastatic pancreatic adenocarcinoma. --ongoing first line [place]/A[place]xane. Tolerating well with significant decline in CA19-9. Note s increasing fatigue. Recent episode of diarrhea requiring ED visit. --C3D1 [place] scheduled 10/17/18, initially deferred for uncontrolled diarrhea --Restaging CT (10/17/18) with responsive disease but showed new biliary duct obstruction, wi th normal TBili, prompting ERCP w/ metal stent placement (10/23/18) --Patient has recovered well from biliary stenting, shows elevated WBC but afebrile --Proceed with C3 [place]xane today (10/31/2018) --Per Dr. Mccrary: Restaging CT [...] care Taz Mcneal PA-C HEMATOLOGY/MEDICAL ONCOLOGY AT [facility] [address] [place] [address] Mailcode: [place] [address] in this encounter Plan of Treatment +--------+ + + + + | Date | Type | Specialty | Care Team | Description | +--------+ + + + + | 11/14/ | Appointment | Hematology & | Moustapha Sher | | | 2019 | | Oncology | [address] | | | | | | [place] [address] | | +--------+ + + + + | 11/14/ | Office | Hematology & | Taz Mcneal, | | | 2018 | Visit | Oncology | PA-C [address] | | | | | | [address] | | | | | | [place] | | | | | | [address] | | | | | | [phone] | | | | | | | | +--------+ + + + + | 11/14/ | Appointment | Hematology & | B/C, Pod [address] | | | 2019 | | Oncology | [address] [place] | | | | | | [place] [address] | | +--------+ + + + + [...] [place] | | | | | | [address] | | | | | | [phone] | | | | | | | | +--------+ + + + + | 11/28/ | Appointment | Hematology & | B/C, Pod [address] | | | 2018 | | Oncology | [place], | | | | | | [place] [address] | | +--------+ + + + + [...] [address] | | | | | | [place], [place] | | | | | | [address] | | | | | | [phone] | | | | | | | | +--------+ + + + + | 12/12/ | Appointment | Hematology & | B/C, Pod [address] | | | 2018 | | Oncology | [place], | | | | | | [place] [address] | | +--------+ + + + + [...]
--- OUTSIDE RECORDS SUMMARY | ~2018-11-06 | XMS | Encounter Summary ---
Demographics + + + | Address | [address] | | | [place] [address] | + + + | Home Phone | | + + + | Preferred Language | Unknown | + + + | Marital Status | | + + + | Jewish Affiliation | NRP | + + + [...] | | | | | [place] [address] | | + + + + + Care Team Providers + +------+ + | Care Business Excellence Manager Name | Role | Phone | + +------+ + | Piotr Plummer MD | PCP | | + +------+ + Encounter Details +--------+ + + + + | Date | Type | Department | Care Team | Description | +--------+ + + + + | 09/03/ | Solar Installer | Hematology/Medical | Toni Mccrary, | | | 2019 | | Oncology at [place] | ,PhD [address] | | | | | for Health & Healing | [place], [place] | | | | | [address] | [address] | | | | | Mailcode: [place] | [phone] | | | | | for Health and | | | | | | Healing, [address] | | | | | | [place], [place] | | | | | | [address] | | | | | | [phone] | | | +--------+ + + + [...] Rd | | | | | | [place] [address] | | +--------+ + + + + | 11/14/ | Office | Hematology & | Taz Mcneal, | | | 2019 | Visit | Oncology | FABIANA-Cindy [address] | | | | | | [address] | | | | | | [facility] | | | | | | [address] | | | | | | [phone] | | | | | | | | +--------+ + + + + | 11/14/ | Appointment | Hematology & | B/C, Pod [address] | | | 2019 | | Oncology | [place], | | | | | | [place] [address] | | +--------+ + + + + [...] [place] | | | | | | [address] | | | | | | [phone] | | | | | | | | +--------+ + + + + | 11/28/ | Appointment | Hematology & | B/C, Pod [address] | | | 2019 | | Oncology | [place], | | | | | | [place] [address] | | +--------+ + + + + | 12/12/ | Clinical | | | | | 2019 | Support | | | | | | Staff | | | | +--------+ + + + + | 12/12/ | Office | Hematology & | Taz Mcneal, | | | 2018 | Visit | Oncology | PA-C [address] [facility] | | | | | | [address] | | | | | | [place], [place] | | | | | | [address] | | | | | | [phone] | | | | | | | | +--------+ + + + + | 12/12/ | Appointment | Hematology & | B/C, Pod [address] | | | 2019 | | Oncology | [place], | | | | | | [place] [address] | | +--------+ + + + + as of this encounter Visit Diagnoses Not on filein this encounter"
--- OUTSIDE RECORDS SUMMARY | ~2018-11-06 | XMS | Encounter Summary ---
Demographics + + + | Address | [address] | | | [place] [address] | + + + | Home Phone [...] | | | | | [place] [address] | | + + + + + Care Team Providers + +------+ + | Care Applications Programmer Analyst Name | Role | Phone | [...] | 2019 | Encounter | Services at [facility] | ,PhD [address] | Request) | | | | [address] [facility] | [place], [place] | | | | | [facility] | [address] | | | | | Mailcode: L[address] [facility] | [phone] | | | | | [facility], | | | | | | [place] [address] | | | | | | [phone] | | | +--------+ + + + [...] [address] | | | | | | [place] [address] | | +--------+ + + + + | 11/14/ | Office | Hematology & | Taz Mcneal, | | | 2019 | Visit | Oncology | PA-C [address] | | | | | | [address] | | | | | | [place] | | | | | | [address] | | | | | | [phone] | | | | | | | | +--------+ + + + + | 11/14/ | Appointment | Hematology & | B/C, Pod [address] | | | 2019 | | Oncology | [place] | | | | | | [place] [address] | | +--------+ + + + + [...] Rd | | | | | | [place], [place] | | | | | | [address] | | | | | | [phone] | | | | | | | | +--------+ + + + + | 11/28/ | Appointment | Hematology & | B/C, Pod [address] | | | 2018 | | Oncology | [place], | | | | | | [place] [address] | | +--------+ + + + + [...] Rd | | | | | | [facility], [place] | | | | | | [address] | | | | | | [phone] | | | | | | | | +--------+ + + + + | 12/12/ | Appointment | Hematology & | B/C, Pod [address] | | | 2018 | | Oncology | [place], | | | | | | [place] [address] | | +--------+ + + + + [...]
--- OUTSIDE RECORDS SUMMARY | ~2018-11-06 | XMS | Encounter Summary ---
Demographics + + + | Address | [address] | | | [place] [address] | + + + | Home Phone [...] | | | | | [place] [address] | | + + + + + Care Team Providers + +------+ + | Care Support Manager Name | Role | Phone | [...] | | 2019 | | [facility]cology at [place] | ,PhD [address] | | | | | for Health & Healing | [place], [place] | | | | | [address] | [address] | | | | | Mailcode: [place] | [phone] | | | | | for Health and | | | | | | Healing, [address] | | | | | | [place], [place] | | | | | | [address] | | | | | | [phone] | | | +--------+--------+ + + + [...] [address] | | | | | | [place] [address] | | +--------+ + + + + | 11/14/ | Office | Hematology & | Taz Mcneal, | | | 2018 | Visit | Oncology | PA-C [address] | | | | | | [address] | | | | | | [place], [place] | | | | | | [address] | | | | | | [phone] | | | | | | | | +--------+ + + + + | 11/14/ | Appointment | Hematology & | B/C, Pod [address] | | | 2018 | | Oncology | [place] | | | | | | [place] [address] | | +--------+ + + + + [...] Rd | | | | | | [place], [place] | | | | | | [address] | | | | | | [phone] | | | | | | | | +--------+ + + + + | 11/28/ | Appointment | Hematology & | B/C, Pod [address] | | | 2018 | | Oncology | [place], | | | | | | [place] [address] | | +--------+ + + + + [...] [place] | | | | | | [address] | | | | | | [phone] | | | | | | | | +--------+ + + + + | 12/12/ | Appointment | Hematology & | B/C, Pod [address] | | | 2019 | | Oncology | [address] [place], | | | | | | [place] [address] | | +--------+ + + + + [...]
--- OUTSIDE RECORDS SUMMARY | ~2018-11-06 | XMS | Encounter Summary ---
Demographics + + + | Address | [address] | | | [place] [address] | + + + | Home Phone | | + + + | Preferred Language | Unknown | + + + | Marital Status | | + + + | Taoist Affiliation | NRP | + + + [...] | | | | | [place] [address] | | + + + + + Care Team Providers + +------+ + | Care Ring Spinner Name | Role | Phone | + +------+ + | Piotr Plummer MD | PCP | | + +------+ + Encounter Details +--------+ + + + + | Date | Type | Department | Care Team | Description | +--------+ + + + + | 08/22/ | Hospital | Radiology/Imaging | Toni Mccrary, | | | 2019 | Encounter | Lab at [facility] [address] | ,PhD [address] | | | | | [place] Mailcode: | [place], [place] | | | | | [address] | [address] | | | | | Health and [facility], | [phone] | | | | | [address] [place] [address], | | | | | | [place] [address] | | | | | | [phone] | | | +--------+ + + + [...] [address] | | | | | | [place] [address] | | +--------+ + + + + | 11/14/ | Office | Hematology & | Taz Mcneal, | | | 2018 | Visit | Oncology | PA-C [address] | | | | | | [address] | | | | | | [place], [place] | | | | | | [address] | | | | | | [phone] | | | | | | | | +--------+ + + + + | 11/14/ | Appointment | Hematology & | B/C, Pod [address] | | | 2018 | | Oncology | [place] | | | | | | [place] [address] | | +--------+ + + + + [...] Rd | | | | | | [place], [place] | | | | | | [address] | | | | | | [phone] | | | | | | | | +--------+ + + + + | 11/28/ | Appointment | Hematology & | B/C, Pod [address] | | | 2018 | | Oncology | [place], | | | | | | [place] [address] | | +--------+ + + + + [...] [place] | | | | | | [address] | | | | | | [phone] | | | | | | | | +--------+ + + + + | 12/12/ | Appointment | Hematology & | B/C, Pod [address] | | | 2018 | | Oncology | [address] [place], | | | | | | [place] [address] | | +--------+ + + + + [...] report as now presented. Final signature: Felix aDvis | | | 08/22/2018 2:59 PM Preliminary: [...]
--- OUTSIDE RECORDS SUMMARY | ~2018-11-06 | XMS | Encounter Summary ---
Demographics + + + | Address | [address] | | | [place] [address] | + + + | Home Phone | | + + + | Preferred Language | Unknown | + + + | Marital Status | | + + + | Alevism Affiliation | NRP | + + + | Race | White | + + + | Ethnic Group | Not or | + + + Author + + + | Author | [facility] | + + + | Organization | [facility] | + + + | Address | Unknown | + + + | Phone | Unavailable | + + + Support + + + + + | Name | Relationship | Address | Phone | + + + + + | ELSA GOODE | ECON | [address] | | | | | [place] [address] | | + + + + + Care Team Providers + +------+ + | Care Labor Conciliator Name | Role | Phone | + [...] | +--------+ + + + + | 08/31/ | MyChart | Hematology/Medical | Dinesh Santiago, | Appointment Date | | 2019 | Encounter | [facility] at [place] | MICHELE,ACHPN [address] | | | | | for Health & Healing | [address] | | | | | [address] | [place], [place] | | | | | Mailcode: [place] | [address] | | | | | for Health and | [phone] | | | | | Healing, [facility] [address] | | | | | | [place], [place] | | | | | | [address] | | | | | | [phone] | | | +--------+ + + + [...] [address] | | | | | | [place] [address] | | +--------+ + + + + | 11/14/ | Office | Hematology & | Taz Mcneal, | | | 2018 | Visit | Oncology | PA-C [address] | | | | | | [address] | | | | | | [place] | | | | | | [address] | | | | | | [phone] | | | | | | | | +--------+ + + + + | 11/14/ | Appointment | Hematology & | B/C, Pod [address] | | | 2019 | | Oncology | [place] | | | | | | [place] [address] | | +--------+ + + + + [...] | | | | | | [facility] [place] | | | | | | [address] | | | | | | [phone] | | | | | | | | +--------+ + + + + | 11/28/ | Appointment | Hematology & | B/C, Pod [address] | | | 2018 | | Oncology | [place], | | | | | | [place] [address] | | +--------+ + + + + [...] [place] | | | | | | [address] | | | | | | [phone] | | | | | | | | +--------+ + + + + | 12/12/ | Appointment | Hematology & | B/C, Pod [address] | | | 2019 | | Oncology | [place], | | | | | | [place] [address] | | +--------+ + + + + as of this encounter Visit Diagnoses Not on filein this encounter"
--- OUTSIDE RECORDS SUMMARY | ~2018-11-06 | XMS | Encounter Summary ---
Demographics + + + | Address | [address] | | | [place] [address] | + + + | Home Phone | | + + + | Preferred Language | Unknown | + + + | Marital Status | | + + + | Mu-Ism Affiliation | NRP | + + + [...] | | | | | [place] [address] | | + + + + + Care Team Providers + +------+ + | Care Wool Fleece Sorter Name | Role | Phone | + [...] | 2019 | on | [facility] at [facility] | ,PhD [address] | (gemcitabine-Abraxan | | | | for Health & Healing | [address] [place], [place] | e) | | | | [address] | [address] | | | | | Mailcode: [place] | [phone] | | | | | for Health and | | | | | | Healing, [address] | | | | | | [place], [place] | | | | | | [address] | | | | | | [phone] | | | +--------+ + + + [...] | | | | | [place] [address] | | +--------+ + + + + | 11/14/ | Office | Hematology & | Taz Mcneal, | | | 2018 | Visit | Oncology | PA-C [address] | | | | | | [address] | | | | | | [place] | | | | | | [address] | | | | | | [phone] | | | | | | | | +--------+ + + + + | 11/14/ | Appointment | Hematology & | B/C, Pod [address] | | | 2019 | | Oncology | [place] | | | | | | [place] [address] | | +--------+ + + + + | 11/28/ | Clinical | | | | | 2018 | Support | | | | | | Staff | | | | +--------+ + + + + | 11/28/ | Office | Hematology & | Taz cMneal, | | | 2018 | Visit | Oncology | PA-Cindy [address] [facility] | | | | | | [address] | | | | | | [place] | | | | | | [address] | | | | | | [phone] | | | | | | | | +--------+ + + + + | 11/28/ | Appointment | Hematology & | B/C, Pod [address] | | | 2019 | | Oncology | [place] | | | | | | [place] [address] | | +--------+ + + + + | 12/12/ | Clinical | | | | | 2018 | Support | | | | | | Staff | | | | +--------+ + + + + | 12/12/ | Office | Hematology & | Taz Mcneal, | | | 2018 | Visit | Oncology | OLYA [address] [facility] | | | | | | [address] | | | | | | [place] | | | | | | [address] | | | | | | [phone] | | | | | | | | +--------+ + + + + | 12/12/ | Appointment | Hematology & | B/C, Pod [address] | | | 2018 | | Oncology | [place], | | | | | | [place] [address] | | +--------+ + + + + as of this encounter Visit Diagnoses Not on filein this encounter"
--- OUTSIDE RECORDS SUMMARY | ~2018-11-06 | XMS | Encounter Summary ---
Demographics + + + | Address | [address] | | | [place] [address] | + + + | Home Phone | | + + + | Preferred Language | Unknown | + + + | Marital Status | | + + + | Zoroastrian Affiliation | NRP | + + + [...] | | | | | [place] [address] | | + + + + + Care Team Providers + +------+ + | Care Department Supervisor Name | Role | Phone | + [...] | 2019 | Encounter | [facility] at [place] | MICHELE,ACHPN [address] | | | | | for Health & Healing | [address] | | | | | [address] | [place], [place] | | | | | Mailcode: [place] | [address] | | | | | for Health and | [phone] | | | | | Healing, [facility] [address] | | | | | | [place], [place] | | | | | | [address] | | | | | | [phone] | | | +--------+ + + + [...] [address] | | | | | | [place] [address] | | +--------+ + + + + | 11/14/ | Office | Hematology & | Taz Mcneal, | | | 2018 | Visit | Oncology | PA-C [address] | | | | | | [address] | | | | | | [place] | | | | | | [address] | | | | | | [phone] | | | | | | | | +--------+ + + + + | 11/14/ | Appointment | Hematology & | B/C, Pod [address] | | | 2019 | | Oncology | [place] | | | | | | [place] [address] | | +--------+ + + + + [...] | | | | | [facility] [place] | | | | | | [address] | | | | | | [phone] | | | | | | | | +--------+ + + + + | 11/28/ | Appointment | Hematology & | B/C, Pod [address] | | | 2018 | | Oncology | [place], | | | | | | [place] [address] | | +--------+ + + + + | 12/12/ | Clinical | | | | | 2019 | Support | | | | | | Staff | | | | +--------+ + + + + | 12/12/ | Office | Hematology & | Taz Mcnela, | | | 2019 | Visit | Oncology | FABIANA-C [address] | | | | | | [address] | | | | | | [place], [place] | | | | | | [address] | | | | | | [phone] | | | | | | | | +--------+ + + + + | 12/12/ | Appointment | Hematology & | B/C, Pod [address] | | | 2019 | | Oncology | [place], | | | | | | [place] [address] | | +--------+ + + + + as of this encounter Visit Diagnoses Not on filein this encounter"
--- OUTSIDE RECORDS SUMMARY | ~2018-11-06 | XMS | Encounter Summary ---
Demographics + + + | Address | [address] | | | [place] [address] | + + + | Home Phone [...] | | | | | [place] [address] | | + + + + + Care Team Providers + +------+ + | Care Product Safety Coordinator Name | Role | Phone | [...] | 2019 | on | [facility]cology at [place] | | | | | | for Health & Healing | | | | | | [address] | | | | | | Mailcode: [place] | | | | | | for Health and | | | | | | Healing, [address] | | | | | | [place], [place] | | | | | | [address] | | | | | | [phone] | | | +--------+ + + + [...] [address] | | | | | | [place] [address] | | +--------+ + + + + | 11/14/ | Office | Hematology & | Taz Mcneal, | | | 2018 | Visit | Oncology | PA-C [address] | | | | | | [address] | | | | | | [place] | | | | | | [address] | | | | | | [phone] | | | | | | | | +--------+ + + + + | 11/14/ | Appointment | Hematology & | B/C, Pod [address] | | | 2019 | | Oncology | [place] | | | | | | [place] [address] | | +--------+ + + + + [...] Rd | | | | | | [place], [place] | | | | | | [address] | | | | | | [phone] | | | | | | | | +--------+ + + + + | 11/28/ | Appointment | Hematology & | B/C, Pod [address] | | 2018 | | Oncology | [place], | | | | | | [place] [address] | | +--------+ + + + + [...] | | | | | | [facility], [place] | | | | | | [address] | | | | | | [phone] | | | | | | | | +--------+ + + + + | 12/12/ | Appointment | Hematology & | B/C, Pod [address] | | | 2019 | | Oncology | [place], | | | | | | [place] [address] | | +--------+ + + + + as of this encounter Visit Diagnoses Not on filein this encounter"
--- OUTSIDE RECORDS SUMMARY | ~2018-11-06 | XMS | Encounter Summary ---
Demographics + + + | Address | [address] | | | [place] [address] | + + + | Home Phone [...] | | | | | [place] [address] | | + + + + + Care Team Providers + +------+ + | Care Process Control Technician Name | Role | Phone | [...] | adenocarcino | [address] | [facility] | | | | | makeda ([facility]) | [facility] | Road | | | | | Procedures | Rd | Mailcode: | | | | | IR PORT | [place], [place] | [address] | | | | | PROCEDURE | [address] | [place] | | | | | [place] INSERT | Phone: | Hospital | | | | | GAETANO CV | [phone] | [facility] | | | | | CATH,W SQ | Fax: | [place], [place] | | | | | PORT,>7 Y/O | [phone] | [address] | | | | | | | Phone: | | | | | | | [phone] | | | | | | | Fax: | | | | | | | [phone] | +--------+--------+ + + + + Encounter Details +--------+ + + + + | Date | Type | Department | Care Team | Description | +--------+ + + + + | 08/23/ | Telephone | Digestive Health | Martin Carrero, | | | 2019 | | [place] [facility] [address] | [address] | | | | | [address] | [address] | | | | | Mailcode: Center | [place], [place] | | | | | for Health and | [address] | | | | | Healing, [address] | [phone] | | | | | [place], [place] | | | | | | [address] | | | | | | [phone] | | | +--------+ + + + [...] Rd | | | | | | [place] [address] | | +--------+ + + + + | 11/14/ | Office | Hematology & | Taz Mcneal, | | | 2018 | Visit | Oncology | PA-C [address] | | | | | | [address] | | | | | | [place], [place] | | | | | | [address] | | | | | | [phone] | | | | | | | | +--------+ + + + + | 11/14/ | Appointment | Hematology & | B/C, Pod [address] | | | 2018 | | Oncology | [place], | | | | | | [place] [address] | | +--------+ + + + + [...] [place] | | | | | | [address] | | | | | | [phone] | | | | | | | | +--------+ + + + + | 11/28/ | Appointment | Hematology & | B/C, Pod [address] | | | 2019 | | Oncology | [place], | | | | | | [place] [address] | | +--------+ + + + + [...] Rd | | | | | | [place], [place] | | | | | | [address] | | | | | | [phone] | | | | | | | | +--------+ + + + + | 12/12/ | Appointment | Hematology & | B/C, Pod [address] | | | 2019 | | Oncology | [place], | | | | | | [place] [address] | | +--------+ + + + + as of this encounter Results IR PORT PROCEDURE (08/28/2018 9:48 AM) + + + | Narrative | Performed At | + + + | PROCEDURE: Removal of right chest port with placement of new port | [facility] | | PRIMARY MECHANICAL MAINTENANCE ENGINEER: Varsha Avalos MD ANGIOGRAPHY ATTENDING: | RADIOLOGY [...] tip of the indwelling Port-A-Cath. A 5 Albanian | | | dilator was inserted and [...] exchanged for an 8 | | | Albanian peel-away sheath. The new catheter was advanced [...] patient's oncologist, Toni Mccrary, | | | Marcus.Gahda. He will manage the anticoagulation. I have [...] Res In Interface - 08/29/2018 6:02 PM [facility] PROCEDURE: | | Removal of right chest port with placement of new port PRIMARY MECHANICAL MAINTENANCE ENGINEER: Varsha | | MD Robbie ANGIOGRAPHY ATTENDING: [...] tip of the indwelling Port-A-Cath. A 5 Albanian dilator was | | inserted and advanced [...] was | | exchanged for an 8 Albanian peel-away sheath. The new catheter was advanced [...]
--- OUTSIDE RECORDS SUMMARY | ~2018-11-06 | XMS | Encounter Summary ---
Demographics + + + | Address | [address] | | | [place] [address] | + + + | Home Phone [...] | | | | | [place] [address] | | + + + + + Care Team Providers + +------+ + | Care Supervisor Pile Driving Name | Role | Phone | + [...] | Oncology at [facility] | [address] [place], | | | | | [address] | [place] [address] | | | | | Mailcode: [place] | | | | | | for Health and | | | | | | [facility] | | | | | | [place], [place] | | | | | | [address] | | | | | | [phone] | | | +--------+ + + + [...] | 1 | 09/13/19 | | | [id number] | meals and 1 | capsule | [...] & Oriented x3 and di scharged with family/utility driver. Refer to MAR and Onc Lines and Transfusions doc flowsheet for treatment details.in this enc ounter Plan of Treatment +--------+ + + + + | Date | Type | Specialty | Care Team | Description | +--------+ + + + + | 11/14/ | Appointment | Hematology & | RnMoustapha | | | 2018 | | Oncology | [address] | | | | | | [place] [address] | | +--------+ + + + + | 11/14/ | Office | Hematology & | Taz Mcneal, | | | 2018 | Visit | Oncology | [place] [address] | | | | | | [address] | | | | | | [place], [place] | | | | | | [address] | | | | | | [phone] | | | | | | | | +--------+ + + + + | 11/14/ | Appointment | Hematology & | B/C, Pod [address] | | | 2018 | | Oncology | [place], | | | | | | [place] [address] | | +--------+ + + + + [...] [place] | | | | | | [address] | | | | | | [phone] | | | | | | | | +--------+ + + + + | 11/28/ | Appointment | Hematology & | B/C, [address] | | | 2019 | | Oncology | [place], | | | | | | [place] [address] | | +--------+ + + + + | 12/12/ | Clinical | | | | | 2018 | Support | | | | | | Staff | | | | +--------+ + + + + | 12/12/ | Office | Hematology & | Taz Mcneal, | | | 2018 | Visit | Oncology | PA-C [address] [facility] | | | | | | [address] | | | | | | [place], [place] | | | | | | [address] | | | | | | [phone] | | | | | | | | +--------+ + + + + | 12/12/ | Appointment | Hematology & | B/C, [address] | | | 2019 | | Oncology | [place] | | | | | | [place] [address] | | +--------+ + + + + [...] + + + + | [facility] | [address] | [place] [address] | | | OF CARE TESTS | | | | + + + + + CULTURE, URINE [facility] (10/17/2018 2:13 PM) + + + + + | Component | Value | Ref Range | Performed At | + + + + + | URINE CULTURE [facility] | Insignificant growth | | [facility] | | | (<10,000 cfu/mL) | | SERVICES, CORE | + + + + + + + | Specimen | + + | Urine | + + + + + + + | Performing | Address | City/State/Zipcode | Phone Number | | Organization | | | | + + + + + | [facility] | [address] | [place] [address] | | | SERVICES, CORE | [address] | | | + + + + + URINE, MICROSCOPIC EXAM (10/17/2018 2:13 PM) + +---------+ + + | Component | Value | Ref Range | Performed At | + +---------+ + + | RED CELLS | 4 (H) | 0 - 3 /hpf | [facility] | | | | | SERVICES, CORE | + +---------+ + + | WHITE CELLS | 5 | 0 - 5 /hpf | [facility] | | | | | SERVICES, CORE | + +---------+ + + | BACTERIA | None | None /hpf | [facility] | | | | | SERVICES, CORE | + +---------+ + + | YEAST (LAB) | None | None /hpf | [facility] | | | | | SERVICES, CORE | + +---------+ + + | SQUAMOUS EPITHELIAL | Few | None, Few /hpf | [facility] | | | | | SERVICES, CORE | + +---------+ + + | MUCOUS | Few | None, Few /hpf | [facility] | | | | | SERVICES, CORE | + +---------+ + + | NON-SQUAMOUS EPITH | Few (A) | None /hpf | [facility] | | | | | SERVICES, CORE | + +---------+ + + | HYALINE CASTS | 0 | 0 - 2 /lpf | [facility] | | | | | SERVICES, CORE | + +---------+ + + | GRANULAR CASTS | 0 | 0 - 2 /lpf | [facility] | | | | | SERVICES, CORE | + +---------+ + + | CELLULAR CASTS | 0 | <=0 /lpf | [facility] | | | [...] | None | None, Few /hpf | [facility] | | | | | SERVICES, CORE | + +---------+ + + + + | Specimen | + + | Urine | + + + + + + + | Performing | Address | City/State/Zipcode | Phone Number | | Organization | | | | + + + + + | [facility] | [address] | [place] [address] | | | SERVICES, ELISHA | [address] | | | + + + + + URINE SCREEN FOR CULTURE (10/17/2018 2:13 PM) + + + + + | Component | Value | Ref Range | Performed At | + + + + + | URINE SCREEN FOR | Sent for Culture (A) | Negative | [facility] | | CULTURE | | | [place] | + + + + + + + | Specimen | + + | Urine | + + + + + | Narrative | Performed At | + + + | Culture Screen Positive, specimen sent for culture. | [facility] | | | LABORAT[facility] | | | [place] | + + + + + + + + | Performing | Address | City/State/Zipcode | Phone Number | | Organization | | | | + + + + + | [facility] | [address] | [place] [address] | | | ELISHA TRAM[place] | [address] | | | + + + + + CBC+DIFF,POC (10/17/2018 1:42 PM) + + + + + | Component | Value | Ref Range | Performed At | + + + + + | WBC POC | 5.8 | 3.5 - 10.8 10*3/uL | [facility] [...] | [facility] | [address] | [place] [address] | | | OF CARE TESTS | [...] | + + + + + | [facility] | [address] | [place] [address] | | | OF CARE TESTS | [...] | + + + + + | [facility] | [address] | [place] [address] | | | ELISHA TRAMMELL | [address] | | | + [...]
--- OUTSIDE RECORDS SUMMARY | ~2018-11-06 | XMS | Encounter Summary ---
Demographics + + + | Address | [address] | | | [place] [address] | + + + | Home Phone [...] [address] | | | | | [place] [address] | | + + + + + Care Team Providers + +------+ + | Care Sales Development Representative Name | Role | Phone | + [...] + + + + | 09/19/ | Documentati | Hematology/Medical | Rosemarie Galan, ISRA | Medical nutrition | | 2019 | on | [facility] at [facility] | [address] | therapy | | | | [address] | [address] | | | | | Mailcode: Center | [place], [place] | | | | | [facility] and | [address] | | | | | Healing, [address] | | | | | | [place], [place] | | | | | | [address] | | | | | | [phone] | | | +--------+ + + + [...] Isra | | | | | | [place] [address] | | +--------+ + + + + | 11/14/ | Office | Hematology & | Taz Mcneal, | | | 2018 | Visit | Oncology | PA-C [address] | | | | | | [address] | | | | | | [place] | | | | | | [address] | | | | | | [phone] | | | | | | | | +--------+ + + + + | 11/14/ | Appointment | Hematology & | B/C, Pod [address] | | | 2019 | | Oncology | [place] | | | | | | [place] [address] | | +--------+ + + + + [...] [place] | | | | | | [address] | | | | | | [phone] | | | | | | | | +--------+ + + + + | 11/28/ | Appointment | Hematology & | B/C, Pod [address] | | | 2018 | | Oncology | [place], | | | | | | [place] [address] | | +--------+ + + + + [...] [place] | | | | | | [address] | | | | | | [phone] | | | | | | | | +--------+ + + + + | 12/12/ | Appointment | Hematology & | B/C, [address] | | | 2019 | | Oncology | [place], | | | | | | [place] [address] | | +--------+ + + + + as of this encounter Visit Diagnoses Not on filein this encounter"
--- OUTSIDE RECORDS SUMMARY | ~2018-11-06 | XMS | Encounter Summary ---
Demographics + + + | Address | [address] | | | [place] [address] | + + + | Home Phone | | + + + | Preferred Language | Unknown | + + + | Marital Status | | + + + | Adventist Affiliation | NRP | + + + | Race | White | + + + | Ethnic Group | Not or | + + + Author + + + | Author | [facility] | + + + | Organization | [facility] | + + + | Address | Unknown | + + + | Phone | Unavailable | + + + Support + + + + + | Name | Relationship | Address | Phone | + + + + + | ELSA GOODE | ECON | [address] | | | | | [place] [address] | | + + + + + Care Team Providers + +------+ + | Care Infrastructure Solutions Architect Name | Role | Phone | + [...] | | Gastroenterol | Diagnoses | de Dasilva, | Gas Endo | | | | ogy | Bile duct | Haresh W | Mpv [address] | | | | | obstruction | MD Lynda | [address] | | | | | Procedures | [address] | [facility] | | | | | CONSULT TO | [address] | Mailcode: | | | | | GI | Rd | [address] | | | | | PROCEDURE: | [place], [place] | [place] | | | | | ERCP / | [address] | [address] | | | | | BILIARY | Phone: | [place], | | | | | MANOMETRY | [phone] | [place] [address] | | | | | [place] ANES UPR | Fax: | Phone: | | | | | GI NDSC PX | [phone] | [phone] | | | | | NOS [place] | | Fax: | | | | | ERCP,BIOPSY | | [phone] | | | | | [place] | | | | | | | ERCP,SPHINCT | | | | | | | EROTOMY [place] | | | | | | | ERCP,W/REMOV | | | | | | | AL | | | | | | | STONE,LANG/PA | | | | | | | NCR DUCTS | | | | | | | [place] ERCP | | | | | | | W/PLACE OF | | | | | | | ENDOSCOPIC | | | | | | | STENT TN | | | | | | | ERCP | | | | | | | W/REMOVAL | | | | | | | FOREIGN BODY | | | | | | | OR STENT | | | | | | | [place] ERCP | | | | | | | W/REMOV AND | | | | | | | EXCHANGE OF | | | | | | | STENT [place] | | | | | | | ERCP W/TRANS | | | | | | | ENDOSCOPI | | | | | | | BALLOON | | | | | | | DILATION OF | | | | | | | DUCT [place] | | | | | | | [...] + + + + | 10/19/ | Humanities Professor | Digestive Health | Haresh Truong | Bile duct | | 2019 | | [place] [facility] [address] | MD Lynda [address] | obstruction (Primary | | | | [address] | [address] | Dx) | | | | Mailcode: [place] | [place], [place] | | | | | [facility] and | [address] | | | | | [place] [address] | [phone] | | | | | [place], [place] | | | | | | [address] | | | | | | [phone] | | | +--------+ + + + [...] Rd | | | | | | [place] [address] | | +--------+ + + + + | 11/14/ | Office | Hematology & | Taz Mcneal, | | | 2019 | Visit | Oncology | [place] [address] | | | | | | [address] | | | | | | [place], [place] | | | | | | [address] | | | | | | [phone] | | | | | | | | +--------+ + + + + | 11/14/ | Appointment | Hematology & | B/C, Pod [address] | | | 2019 | | Oncology | [place], | | | | | | [place] [address] | | +--------+ + + + + | 11/28/ | Clinical | | | | | 2018 | Support | | | | | | Staff | | | | +--------+ + + + + | 11/28/ | Office | Hematology & | Taz Mcneal, | | | 2018 | Visit | Oncology | PA-C [address] [facility] | | | | | | [address] | | | | | | [place] | | | | | | [address] | | | | | | [phone] | | | | | | | | +--------+ + + + + | 11/28/ | Appointment | Hematology & | B/C, Pod [address] | | | 2019 | | Oncology | [place], | | | | | | [place] [address] | | +--------+ + + + + | 12/12/ | Clinical | | | | | 2018 | Support | | | | | | Staff | | | | +--------+ + + + + | 12/12/ | Office | Hematology & | Taz Mcneal, | | | 2018 | Visit | Oncology | [place] [address] [facility] | | | | | | [address] | | | | | | [place] | | | | | | [address] | | | | | | [phone] | | | | | | | | +--------+ + + + + | 12/12/ | Appointment | Hematology & | B/C, Pod [address] | | | 2019 | | Oncology | [place] | | | | | | [place] [address] | | +--------+ + + + + as of this encounter Visit Diagnoses + + | Diagnosis | + + | Bile duct obstruction - Primary | + + | Obstruction of bile duct | + +"
--- OUTSIDE RECORDS SUMMARY | ~2018-11-06 | XMS | Encounter Summary ---
Demographics + + + | Address | [address] | | | [place] [address] | + + + | Home Phone [...] | | | | | [place] [address] | | + + + + + Care Team Providers + +------+ + | Care Shotblaster Name | Role | Phone | + [...] | Oncology at [facility] | [address] [place], | | | | | [address] | [place] [address] | | | | | Mailcode: [place] | | | | | | [facility] and | | | | | | Healing, [address] | | | | | | [place], [place] | | | | | | [address] | | | | | | [phone] | | | +--------+ + + + [...] | 1 | 09/13/19 | | | [id number] | meals and 1 | capsule | [...] No acute distr ess and discharged with family/mobile lounge driver ambulatory. Refer to MAR and Onc [...] | | | | | [place] [address] | | +--------+ + + + + | 11/14/ | Office | Hematology & | Taz Mcneal, | | | 2018 | Visit | Oncology | PA-C [address] | | | | | | [address] | | | | | | [facility] | | | | | | [address] | | | | | | [phone] | | | | | | | | +--------+ + + + + | 11/14/ | Appointment | Hematology & | B/C, Pod [address] | | | 2019 | | Oncology | [place] | | | | | | [place] [address] | | +--------+ + + + + | 11/28/ | Clinical | | | | | 2018 | Support | | | | | | Staff | | | | +--------+ + + + + | 11/28/ | Office | Hematology & | Taz Mcneal, | | | 2018 | Visit | Oncology | [place] [address] [facility] | | | | | | [address] | | | | | | [place] | | | | | | [address] | | | | | | [phone] | | | | | | | | +--------+ + + + + | 11/28/ | Appointment | Hematology & | B/C, Pod [address] | | | 2019 | | Oncology | [place] | | | | | | [place] [address] | | +--------+ + + + + | 12/12/ | Clinical | | | | | 2018 | Support | | | | | | Staff | | | | +--------+ + + + + | 12/12/ | Office | Hematology & | Taz Mcneal, | | | 2018 | Visit | Oncology | PA-Cindy [address] [facility] | | | | | | [address] | | | | | | [place], [place] | | | | | | [address] | | | | | | [phone] | | | | | | | | +--------+ + + + + | 12/12/ | Appointment | Hematology & | B/C, Pod [address] | | | 2018 | | Oncology | [place], | | | | | | [place] [address] | | +--------+ + + + + [...]
--- OUTSIDE RECORDS SUMMARY | ~2018-11-06 | XMS | Encounter Summary ---
Demographics + + + | Address | [address] | | | [place] [address] | + + + | Home Phone | | + + + | Preferred Language | Unknown | + + + | Marital Status | | + + + | Spiritism Affiliation | NRP | + + + [...] | | | | | [place] [address] | | + + + + + Care Team Providers + +------+ + | Care Professor Of Economics Name | Role | Phone | + [...] | 2019 | on | Oncology at [facility] | | (social work) | | | | [facility] | | | | | | [address] | | | | | | Mailcode: [facility] | | | | | | for Health and | | | | | | [facility], [place] [address] | | | | | | [place], [place] | | | | | | [address] | | | | | | [phone] | | | +--------+ + + + [...] [address] | | | | | | [place] [address] | | +--------+ + + + + | 11/14/ | Office | Hematology & | Taz Mcneal, | | | 2018 | Visit | Oncology | PA-C [address] | | | | | | [address] | | | | | | [place], [place] | | | | | | [address] | | | | | | [phone] | | | | | | | | +--------+ + + + + | 11/14/ | Appointment | Hematology & | B/C, Pod [address] | | | 2018 | | Oncology | [place] | | | | | | [place] [address] | | +--------+ + + + + [...] Rd | | | | | | [place], [place] | | | | | | [address] | | | | | | [phone] | | | | | | | | +--------+ + + + + | 11/28/ | Appointment | Hematology & | B/C, Pod [address] | | | 2018 | | Oncology | [place], | | | | | | [place] [address] | | +--------+ + + + + [...] [place] | | | | | | [address] | | | | | | [phone] | | | | | | | | +--------+ + + + + | 12/12/ | Appointment | Hematology & | B/C, Pod [address] | | | 2019 | | Oncology | [place], | | | | | | [place] [address] | | +--------+ + + + + as of this encounter Visit Diagnoses Not on filein this encounter"
--- OUTSIDE RECORDS SUMMARY | ~2018-11-06 | XMS | Encounter Summary ---
Demographics + + + | Address | [address] | | | [place] [address] | + + + | Home Phone [...] | | | | | [place] [address] | | + + + + + Care Team Providers + +------+ + | Care Information Technology Assistant Name | Role | Phone | [...] + + + + | 09/05/ | Hospital | Hematology/Medical | A, [address] | | | 2019 | Encounter | Oncology at [facility] | [address] [place], | | | | | [address] | [place] [address] | | | | | Mailcode: [facility] | | | | | | [facility] | | | | | | He[facility], [address] | | | | | | [place], [place] | | | | | | [address] | | | | | | [phone] | | | +--------+ + + + [...] + + + | Blood Pressure | 146/70 | 09/05/2018 3:21 PM PST | + + + + | Pulse | 91 | 09/05/2018 3:21 PM PST | + + + + | Temperature | 37.1 C (98.7 F) | 09/05/2018 3:21 PM PST | + + + + | Respiratory Rate | 16 | 09/05/2018 3:21 PM PST | + + + + | Oxygen Saturation | 98% | 09/05/2018 3:21 PM PST | + + + + | Inhaled Oxygen | - | - | | Concentration | | | + + + + | Weight | 56.4 kg (124 lb 6.4 | 09/05/2018 3:21 PM PST | | | oz) | | + + + + | Height | - | - | + + + + | Body Mass Index | 22.04 | 09/05/2018 3:21 PM PST | + + + + [...] | | | | | | adenocarcinoma ([facility]) | dose: 40 mg/day | | | [...] + as of this encounter Progress Notes MabelsTracie RN - 09/05/2018 2:45 PM PSTChemotherapy Nurse Note Name: Elaine NAQVI: [id number] Date: 09/05/2018 Physician: Hermann Allergies: Elaine has No Known Allergies. Diagnosis: Pancreatic adenocarcinoma Significant Other: and 2 daughters at chairside Nursing Assessment: Fever: no; Diarrhea:No Constipation: Yes, Patient encouraged to increase fluids, ambulation and PRN miralax 1-2x/d ay, she stated that she drank Smooth Move tea last night that was helpful and encouraged her to continue that SOB / Cough: no; Rash: no Edema: no; Mucositis: no; Urinary: no; Neuropathy: no; S/S Bleeding: yes - epistaxis when blowing her nose, started after taking Eliquis, Hermann DAY aware; Severity (1=Not at all, 2=A little, 3=Quite a bit, 4=Very much) Nausea and/or Vomitin Fatigue: 2 Pain: 2 Location: abdomen Duration: constant, takes oxycodone when needed Narrative: Patient here for Abraxane/Gemzar. PAC right chest. CBC and CMP were drawn via PAC, resulted via POC and reviewed prior to rel easing orders. Positive blood return on IV line prior and after infusion. Medication infused with 500ml NS sidearm bag. Ealine tolerated the infusions without incident. PAC flushed w ith heparin and deaccessed per protocol. Elaine was in no acute distress when she discharged ambulatory with family/funeral car driver. Refer to MAR and Onc Lines [...] [address] | | | | | | [place] [address] | | +--------+ + + + + | 11/14/ | Office | Hematology & | Taz Mcneal, | | | 2019 | Visit | Oncology | PA-C [address] | | | | | | [address] | | | | | | [place], [place] | | | | | | [address] | | | | | | [phone] | | | | | | | | +--------+ + + + + | 11/14/ | Appointment | Hematology & | B/C, [address] | | | 2019 | | Oncology | [place], | | | | | | [place] [address] | | +--------+ + + + + [...] Rd | | | | | | [place], [place] | | | | | | [address] | | | | | | [phone] | | | | | | | | +--------+ + + + + | 11/28/ | Appointment | Hematology & | B/C, [address] | | | 2018 | | Oncology | [place], | | | | | | [place] [address] | | +--------+ + + + + [...] Rd | | | | | | [place], [place] | | | | | | [address] | | | | | | [phone] | | | | | | | | +--------+ + + + + | 12/12/ | Appointment | Hematology & | B/C, [address] | | | 2018 | | Oncology | [place], | | | | | | [place] [address] | | +--------+ + + + + as of this encounter Procedures + +--------+ + + + | Procedure Name | Priori | Date/Time | Associated Diagnosis | Comments | | | ty | | | | + +--------+ + + + | CBC WITH AUTO DIFF - | Routin | 09/05/2018 | Pancreatic | | | OLP | e | 4:04 PM | adenocarcinoma (HCC) | | | | | PST | | | + +--------+ + + + | CBC+DIFF,POC | Routin | 09/05/2018 | Pancreatic | Results for this | | | e | 4:04 PM | adenocarcinoma (HCC) | procedure are in the | | | | PST | | results section. | + +--------+ + + + | COMPLETE METABOLIC | Routin | 09/05/2018 | Pancreatic | | | PANEL - OLP | e | 3:48 PM | adenocarcinoma (HCC) | | | | | PST | | | + +--------+ + + + | CMP, POC (BMP+LFT) | Routin | 09/05/2018 | Pancreatic | Results for this | | | e | 3:48 PM | adenocarcinoma (HCC) | procedure are in the | | | | PST | | results section. | + +--------+ + + + | CANCER AG GI (19-9), | Routin | 09/05/2018 | Pancreatic | Results for this | | SERUM | e | 3:17 PM | adenocarcinoma (HCC) | procedure are in the | | | | PST | | results section. | + +--------+ + + + in this encounter Results CBC+DIFF,POC (09/05/2018 4:04 PM) + + + + + | Component | Value | Ref Range | Performed At | + + + + + | WBC POC | 4.8 | 3.5 - 10.8 10*3/uL | [facility] | | | | | POINT OF CARE | | | | | TESTS | + + + + + | RBC POC | 3.42 (L) | 4.00 - 5.20 10*6/uL | [facility] | | | | | POINT OF CARE | | | | | TESTS | + + + + + | HGB POC | 9.6 (L) | 12.0 - 16.0 g/dL | [facility] | | | | | POINT OF CARE | | | | | TESTS | + + + + + | HCT POC | 29.7 (L) | 36.0 - 46.0 % | [facility] | | | | | POINT OF CARE | | | | | TESTS | + + + + + | MCV POC | 86.8 | 80.0 - 100 fL | [facility] | | | | | POINT OF CARE | | | | | TESTS | + + + + + | MCH POC | 28.1 | 27.0 - 34.0 pg | [facility] | | | | | POINT OF CARE | | | | | TESTS | + + + + + | MCHC POC | 32.3 (L) | 32.0 - 36.0 g/dL | [...] + + + | PLT POC | 162 | 150 - 400 10*3/uL | [facility] | | | | | POINT OF CARE | | | | | TESTS | + + + + + | MPV POC | 8.9 (L) | 9.7 - 12.3 fL | [facility] | | | | | POINT OF CARE | | | | | TESTS | + + + + + | NEUTROPHIL% POC | 66.6 | 50.0 - 70.0 % | [facility] | | | | | POINT OF CARE | | | | | TESTS | + + + + + | LYMPH% POC | 15.7 (L) | 18 - 42 % | [facility] | | | | | POINT OF CARE | | | | | TESTS | + + + + + | MONO %, POC | 12.8 (H) | 3.5 - 9.0 % | [facility] | | | | | POINT OF CARE | | | | | TESTS | + + + + + | EOS %, POC | 4.7 (H) | 1.0 - 3.0 % | [...] + + | [facility] | [address] [facility] | [place] [address] | | | OF CARE TESTS | | | | + + + + + CMP, POC (BMP+LFT) (09/05/2018 3:48 PM) + + + + + | Component | Value | Ref Range | Performed At | + + + + + | SODIUM, POC | 139 | 134 - 143 mmol/L | [facility] | | | | | POINT OF CARE | | | | | TESTS | + + + + + | POTASSIUM, POC | 3.7 | 3.4 - 5.0 mmol/L | [facility] | | | | | POINT OF CARE | | | | | TESTS | + + + + + | TOTAL CO2, POC | 31 (H) | 22 - 28 mmol/L | [facility] | | | | | POINT OF CARE | | | | | TESTS | + + + + + | CHLORIDE, POC | 99 | 97 - 108 mmol/L | [facility] | | | | | POINT OF CARE | | | | | TESTS | + + + + + | GLUCOSE, POC | 123 (H) | 60 - 99 mg/dL | [facility] | | | | | POINT OF CARE | | | | | TESTS | + + + + + | CALCIUM TOTAL, POC | 9.3 | 8.6 - 10.2 mg/dL | [facility] [...] + | ALK PHOS, CMP POC | 205 (H) | 41 - 109 U/L | [facility] | | | | | POINT OF CARE | | | | | TESTS | + + + + + | ALT, CMP POC | 52 | 0 - 60 U/L | [facility] | | | | | POINT OF CARE | | | | | TESTS | + + + + + | AST, CMP POC | 30 | 0 - 41 U/L | [facility] | | | | | POINT OF CARE | | | | | TESTS | + + + + + | BILIRUBIN TOTAL, CMP | 0.4 | 0.3 - 1.2 mg/dL [...] + + | [facility] | [address] [facility] [facility] [facility] | [place] [address] | | | OF CARE TESTS | | | | + + + + + CANCER AG GI (19-9), SERUM (09/05/2018 3:17 PM) + + + + + | Component | Value | Ref Range | Performed At | + + + + + | CANCER AG GI (19-9) | 6,647.5 (H) | <=37.0 U/mL | [facility] [...] [facility] | [address] | [place] [address] | | | SERVICES, CORE | PARK [...] +--------+------+------+ | aprepitant (CINVANTI) | Given | 220/201 | 130 mg | | | | injectable emulsion 130 mg 130 | | 9 16:31 | | | | | mg, intravenous, ONCE, 1 dose, | | PST | | | | | 09/05/18 at 1615 | | | | | | + +--------+ +--------+------+------+ +---+---+ | | | +---+---+ + +-------+ +------+---+---+ | dexamethasone PF (DECADRON) | Given | | 8 mg | | | | injection 8 mg 8 mg, | | 9 16:39 | | | | | intravenous, ONCE, 1 dose, Wed | | PST | | | | | 09/05/18 at 1615 | | | | | | + +-------+ +------+---+---+ +---+---+ | | | +---+---+ + +---------+ + +---------+---+ | gemcitabine 1,600 mg in NaCl | New Bag | | 1,600 mg | 584.21 | | | 0.9 % (NS) IV 1,600 mg (rounded | | 9 18:00 | | mL/hr | | | from 1,590 mg = 1,000 mg/m2 | | PST | | | | | 1.59 m2 Treatment plan recorded | | | | | | | BSA), intravenous, Administer | | | | | | | over 30 Minutes, ONCE, 1 dose, | | | | | | | 09/05/18 at 1645, HIGH ALERT | | | | | [...] injection 200 mg 200 | | 9 17:22 | | | | | mg (rounded from 198.75 mg = 125 | | PST | | | | | mg/m2 | | | | | | | 1.59 m2 Treatment plan recorded | | | | | | | BSA), intravenous, ONCE, 1 dose, | | | | | | | 09/05/18 at 1615 | | | | | | + +---------+ +--------+ +---+ +---+---+ | | | +---+---+ + +-------+ +---------+---+---+ | palonosetron HCl (ALOXI) | Given | | 0.25 mg | | | | injection 0.25 mg 0.25 mg, | | 9 16:39 | | | | | intravenous, ONCE, 1 dose, Wed | | PST | | | | | 09/05/18 at 1615 | | | | | | + +-------+ +---------+---+---+ +---+---+ | | | +---+---+ in this encounter"
--- OUTSIDE RECORDS SUMMARY | ~2018-11-06 | XMS | Encounter Summary ---
Demographics + + + | Address | [address] | | | [place] [address] | + + + | Home Phone [...] | | | | | [place] [address] | | + + + + + Care Team Providers + +------+ + | Care Date Puller Name | Role | Phone | + +------+ + | Piotr Plummer MD | PCP | | + +------+ + Encounter Details +--------+ + + + + | Date | Type | Department | Care Team | Description | +--------+ + + + + | 08/09/ | [facility] | Hematology | Toni Mccrary, | Pancreatic | | 2019 | | Oncology Study [address] | ,PhD [address] | adenocarcinoma (HCC) | | | | [address] | [place], [place] | (Primary Dx) | | | | Mailcode: [facility] | [id number] | | | | | [facility] | [phone] | | | | | and | | | | | | Floor [place], [place] | | | | | | [address] | | | | | | [phone] | | | +--------+ + + + [...] Rd | | | | | | [place] [address] | | +--------+ + + + + | 11/14/ | Office | Hematology & | Taz Mcneal, | | | 2018 | Visit | Oncology | OLYA [address] [facility] | | | | | | [address] | | | | | | [place], [place] | | | | | | [address] | | | | | | [phone] | | | | | | | | +--------+ + + + + | 11/14/ | Appointment | Hematology & | B/C, [address] | | | 2018 | | Oncology | [place], | | | | | | [place] [address] | | +--------+ + + + + [...] Rd | | | | | | [place], [place] | | | | | | [address] | | | | | | [phone] | | | | | | | | +--------+ + + + + | 11/28/ | Appointment | Hematology & | B/C, [address] | | | 2018 | | Oncology | [place], | | | | | | [place] [address] | | +--------+ + + + + [...] Rd | | | | | | [place], [place] | | | | | | [address] | | | | | | [phone] | | | | | | | | +--------+ + + + + | 12/12/ | Appointment | Hematology & | B/C, [address] | | | 2019 | | Oncology | [place], | | | | | | [place] [address] | | +--------+ + + + + + +--------+ + + | Name | Priori | Associated Diagnoses | Order Schedule | | | ty | | | + +--------+ + + | 12 LEAD ECG | Routin | Pancreatic | Ordered: 08/09/2018 | | | e | adenocarcinoma (HCC) | | + +--------+ + + as of this encounter Results MAGNESIUM, PLASMA (08/22/2018 9:15 AM) + +-------+ + + | Component | Value | Ref Range | Performed At | + +-------+ + + | MAGNESIUM,PLASMA | 2.3 | 1.6 - 2.6 mg/dL | [facility] | | | | | [address] | + +-------+ + + + + | Specimen | + + | Blood - Blood | + + + + + + + | Performing | Address | City/State/Zipcode | Phone Number | | Organization | | | | + + + + + | [facility] | [address] | [place] [address] | | | VALERI, ELISHA | [address] | | | + + + + + PHOSPHORUS, PLASMA (08/22/2018 9:15 AM) + +-------+ + + | Component | Value | Ref Range | Performed At | + +-------+ + + | PHOSPHORUS, PLASMA | 2.4 | 2.4 - 4.7 mg/dL | [facility] | | (LAB) | | | SERVICES, CORE | + +-------+ + + + + | Specimen | + + | Blood - Blood | + + + + + + + | Performing | Address | City/State/Zipcode | Phone Number | | Organization | | | | + + + + + | [facility] | [address] | [place] [address] | | | SERVICES, CORE | [address] | | | + + + + + INR (08/22/2018 9:15 AM) + +-------+ + + | Component | Value | Ref Range | Performed At | + +-------+ + + | INR | 1.08 | 0.90 - 1.20 INR | [facility] | | | | | [...] mech. valves (2.5 - 3.5) INR | [address] | + + + + + + + + | Performing | Address | City/State/Zipcode | Phone Number | | Organization | | | | + + + + + | [facility] | [address] | [place] [address] | | | SERVICESELISHA | [address] | | | + + + + + LDH TOTAL, PLASMA (08/22/2018 9:15 AM) + +---------+ + + | Component | Value | Ref Range | Performed At | + +---------+ + + | LD TOTAL, PLASMA | 169 | <=250 U/L | [facility] | | | | | SERVICES, CORE | + +---------+ + + | LD CMNT | No Hemo | | [facility] | | | | | SERVICES, CORE | + +---------+ + + + + | Specimen | + + | Blood - Blood | + + + + + + + | Performing | Address | City/State/Zipcode | Phone Number | | Organization | | | | + + + + + | [facility] | [address] | [place] [address] | | | SERVICESELISHA | [address] | | | + + + + + APTT (ACT. PART. THROMBO TIME) (08/22/2018 9:15 AM) + +-------+ + + | Component | Value | Ref Range | Performed At | + +-------+ + + | APTT | 30.3 | 26.0 - 36.0 seconds | [facility] | | | | | ELISHA [...] [facility] | [address] | [place] [address] | | | SERVICES, CORE | [address] | | | + + + + + CANCER AG GI (), SERUM (08/13/2018 11:50 AM) + + + + + | Component | Value | Ref Range | Performed At | + + + + + | CANCER AG GI () | 8,843.5 (H) | <=37.0 U/mL | [facility] | | [facility] | | | SERVICES, CORE | + + + + + + + | Specimen | + + | Blood - Blood | + + + + + + + | Performing | Address | City/State/Zipcode | Phone Number | | Organization | | | | + + + + + | [facility] | [address] [facility] [address] | [place] [address] | | | SERVICES, CORE | [address] [...] (L) | 97 - 108 mmol/L | [facility] | | (LAB) | | | SERVICES, | | | | | [facility] | | [facility] + | | | | | HEALING | + +---------+ + + | TOTAL CO2, PLASMA | 31 (H) | 22 - 29 mmol/L | [facility] | | (LAB) | | | SERVICES, | | | | | [facility] | | [facility] | [facility] + | | | | | HEALING | + +---------+ + + | CALCIUM, PLASMA | 10.1 | 8.6 - 10.2 mg/dL | [facility] | | (LAB) | | | SERVICES, | | | | | [facility] | | | | [facility] + | | | | | HEALING | + +---------+ + + | BILIRUBIN TOTAL | 0.8 | 0.3 - 1.2 mg/dL | [facility] | | | | | SERVICES, | | | | | [facility] | | [facility] | [facility] + | | | | | HEALING | + +---------+ + + | TOTAL PROTEIN, | 8.4 (H) | 6.1 - 7.9 g/dL | [facility] | | PLASMA (LAB) | | [...] | + + + + + | [facility] | [address] | [place] [address] | | | SERVICES, [facility] FOR | | | | | HEALTH [...] 1.021Comment: Specific | 1.005 - 1.030 | [facility] | | | Apex performed by | | VALERI, CORE | | | refractometry | | | + + + + + + + | Specimen | + + | Urine - Clean catch | + + + + + + + | Performing | Address | City/State/Zipcode | Phone Number | | Organization | | | | + + + + + | [facility] | [address] | [place] [address] | | | SERVICES, CORE | [address] | | | + + + + + in this encounter Visit Diagnoses + + | Diagnosis | + + | Pancreatic adenocarcinoma (HCC) - Primary | + + | Malignant neoplasm of pancreas, part unspecified | + +"
--- OUTSIDE RECORDS SUMMARY | ~2018-11-06 | XMS | Encounter Summary ---
Demographics + + + | Address | [address] | | | [place] [address] | + + + | Home Phone [...] | | | | | [place] [address] | | + + + + + Care Team Providers + +------+ + | Care Adolescent Medicine Specialist Name | Role | Phone | [...] | 2019 | on | [facility] [place] | ,PhD [address] | ([facility]) | | | | [facility] | [address] [place], [place] | | | | | [address] | [address] | | | | | Mailcode: [place] | [phone] | | | | | for Health and | | | | | | Healing, [address] | | | | | | [place], [place] | | | | | | [address] | | | | | | [phone] | | | +--------+ + + + [...] | | | | | [place] [address] | | +--------+ + + + + | 11/14/ | Office | Hematology & | Taz Mcneal, | | | 2018 | Visit | Oncology | PA-C [address] | | | | | | [address] | | | | | | [place] | | | | | | [address] | | | | | | [phone] | | | | | | | | +--------+ + + + + | 11/14/ | Appointment | Hematology & | B/C, [address] | | | 2019 | | Oncology | [place] | | | | | | [place] [address] | | +--------+ + + + + | 11/28/ | Clinical | | | | | 2018 | Support | | | | | | Staff | | | | +--------+ + + + + | 11/28/ | Office | Hematology & | Taz Mcneal, | | | 2018 | Visit | Oncology | PA-Cindy [address] [facility] | | | | | | [address] | | | | | | [place] | | | | | | [address] | | | | | | [phone] | | | | | | | | +--------+ + + + + | 11/28/ | Appointment | Hematology & | B/C, [address] | | | 2019 | | Oncology | [place] | | | | | | [place] [address] | | +--------+ + + + + | 12/12/ | Clinical | | | | | 2018 | Support | | | | | | Staff | | | | +--------+ + + + + | 12/12/ | Office | Hematology & | Taz Mcneal, | | | 2018 | Visit | Oncology | OLYA [address] [facility] | | | | | | [address] | | | | | | [place] | | | | | | [address] | | | | | | [phone] | | | | | | | | +--------+ + + + + | 12/12/ | Appointment | Hematology & | B/C, [address] | | | 2018 | | Oncology | [place], | | | | | | [place] [address] | | +--------+ + + + + as of this encounter Visit Diagnoses Not on filein this encounter"
--- OUTSIDE RECORDS SUMMARY | ~2018-11-06 | XMS | Encounter Summary ---
Demographics + + + | Address | [address] | | | [place] [address] | + + + | Home Phone [...] | | | | | [place] [address] | | + + + + + Care Team Providers + +------+ + | Care Apple Peeler Operator Name | Role | Phone | [...] | 10/31/ | Hospital | Hematology/Medical | B/C, [address] | | | 2019 | Encounter | [facility]cology at [facility] | [address] [place], | | | | | [address] | [place] [address] | | | | | Mailcode: [place] | | | | | | for Health and | | | | | | Healing, [address] | | | | | | [place], [place] | | | | | | [address] | | | | | | [phone] | | | +--------+ + + + [...] | 1 | 09/13/19 | | | dtnmbn-akxfujqz-udva | meals and 1 | capsule | [...] protocol. Labs dra luna and sent to [facility] and [facility]. PAC flushed per protocol and left accessed [...] [address] | | | | | | [place] [address] | | +--------+ + + + + | 11/14/ | Office | Hematology & | Taz Mcneal, | | | 2018 | Visit | Oncology | PA-C [address] | | | | | | [address] | | | | | | [place] | | | | | | [address] | | | | | | [phone] | | | | | | | | +--------+ + + + + | 11/14/ | Appointment | Hematology & | B/C, [address] | | | 2019 | | Oncology | [place] | | | | | | [place] [address] | | +--------+ + + + + | 11/28/ | Clinical | | | | | 2019 | Support | | | | | | Staff | | | | +--------+ + + + + | 11/28/ | Office | Hematology & | Taz Mcneal, | | | 2018 | Visit | Oncology | PA-Cindy [address] [facility] | | | | | | [address] | | | | | | [place] | | | | | | [address] | | | | | | [phone] | | | | | | | | +--------+ + + + + | 11/28/ | Appointment | Hematology & | B/C, Pod [address] | | | 2018 | | Oncology | [place] | | | | | | [place] [address] | | +--------+ + + + + | 12/12/ | Clinical | | | | | 2018 | Support | | | | | | Staff | | | | +--------+ + + + + | 12/12/ | Office | Hematology & | Taz Mcneal, | | | 2018 | Visit | Oncology | PA-C [address] [facility] | | | | | | [address] | | | | | | [place], [place] | | | | | | [address] | | | | | | [phone] | | | | | | | | +--------+ + + + + | 12/12/ | Appointment | Hematology & | B/C, [address] | | | 2018 | | Oncology | [place], | | | | | | [place] [address] | | +--------+ + + + + + +--------+ + + | Name | Priori | Associated Diagnoses | Order Schedule | | | ty | | | + +--------+ + + | CANCER AG GI (19-9), SERUM | Routin | Pancreatic | Ordered: [...] + | CANCER AG GI () | 2,500.9 (H) | <=37.0 U/mL | [...] [facility] | [address] | [place] [address] | | | SERVICES, CORE | [address] | | | + + + + + CH - COMPLETE METABOLIC SET (10/31/2018 12:03 PM) [...] >60 mL/min | [facility] | | [place] | | | SERVICES, | | | | | [facility] | | | | [facility] + | | | | | HEALING | + + + + + | EGFR NON | >60 | >60 mL/min | [facility] | | -[place] | | | SERVICES, | | | [...] 0.4 | 0.3 - 1.2 mg/dL | [facility] | | | | | SERVICES, | | | | | [facility] | | | | | HEALTH + | | | | | HEALING | + + + + + | TOTAL PROTEIN, | 6.8 | 6.4 - 8.2 g/dL | [facility] | | PLASMA (LAB) | | [...] the MDRD equation recommended by the | [facility] | | National Kidney Disease Education Program. Estimated GFR | LABORATORY | | Interpretive Information: <60 mL/min/1.73 sq | SERVICES, | | m Chronic Kidney Disease <15 mL/min/1.73 | CENTER FOR | | sq m Kidney Failure [...] | + + + + + | [facility] | [address] | [place] [address] | | | SERVICES, [place] | | | | | [facility] [...] 85.9 | 80.0 - 100.0 fL | [facility] | | | | | SERVICES, | | | | | [facility] | | | | | [facility] + | | | | | HEALING | + + + + + | MCHC | 31.5 (L) | 32.0 - 36.0 g/dL | [facility] | | | | | SERVICES, [...] + + + + + | [facility] | [address] | [place] [address] | | | [facility] | | | | | HEALTH + HEALING | | | | + + + + + in this encounter Visit Diagnoses + + | Diagnosis | + + | Pancreatic adenocarcinoma (HCC) | + + | Malignant neoplasm of pancreas, part unspecified | + +"
--- OUTSIDE RECORDS SUMMARY | ~2018-11-06 | XMS | Encounter Summary ---
Demographics + + + | Address | [address] | | | [place] [address] | + + + | Home Phone [...] | | | | | [place] [address] | | + + + + + Care Team Providers + +------+ + | Care Associate Dean Of Women Name | Role | Phone | + [...] | | 2019 | | [facility] | ,PhD [address] | | | | | [facility] | [place], [place] | | | | | [address] | [address] | | | | | Mailcode: [facility] | [phone] | | | | | for [facility] and | | | | | | Healing, [address] | | | | | | [place], [place] | | | | | | [address] | | | | | | [phone] | | | +--------+ + + + [...] [address] | | | | | | [place] [address] | | +--------+ + + + + | 11/14/ | Office | Hematology & | Taz Mcneal, | | | 2018 | Visit | Oncology | PA-C [address] | | | | | | [address] | | | | | | [place] | | | | | | [address] | | | | | | [phone] | | | | | | | | +--------+ + + + + | 11/14/ | Appointment | Hematology & | B/C, [address] | | | 2019 | | Oncology | [place] | | | | | | [place] [address] | | +--------+ + + + + [...] | | | | | | [place], [place] | | | | | | [address] | | | | | | [phone] | | | | | | | | +--------+ + + + + | 11/28/ | Appointment | Hematology & | B/C, [address] | | | 2018 | | Oncology | [place], | | | | | | [place] [address] | | +--------+ + + + + [...] Rd | | | | | | [facility], [place] | | | | | | [address] | | | | | | [phone] | | | | | | | | +--------+ + + + + | 12/12/ | Appointment | Hematology & | B/C, [address] | | | 2019 | | Oncology | [place], | | | | | | [place] [address] | | +--------+ + + + + as of this encounter Visit Diagnoses Not on filein this encounter"
--- OUTSIDE RECORDS SUMMARY | ~2018-11-06 | XMS | Encounter Summary ---
Demographics + + + | Address | [address] | | | [place] [address] | + + + | Home Phone [...] | | | | | [place] [address] | | + + + + + Care Team Providers + +------+ + | Care Marketing Technology Specialist Name | Role | Phone | [...] | | | | adenocarcino | ,PhD 5313 | | | | | | makeda ([facility]) | [address] | | | | | | Procedures | [place], | | | | | | CT CHEST, | [place] | | | | | | ABDOMEN AND | [address] | | | | | | PELVIS W IV | Phone: | | | | | | CONTRAST | [phone] | | | | | | | Fax: | | | | | | | [phone] | | + +--------+ + + + [...] Oncology Study 3302 | ,PhD [address] | | | | | [address] | [place], [place] | | | | | Mailcode: CH7 | [address] | | | | | [facility] | [phone] | | | | | and Healing, 7th | | | | | | Floor [place], [place] | | | | | | [address] | | | | | | [phone] | | | +--------+ + + + [...] Rd | | | | | | [place] [address] | | +--------+ + + + + | 11/14/ | Office | Hematology & | Taz Mcneal, | | | 2018 | Visit | Oncology | OLYA [address] | | | | | | [address] | | | | | | [place] | | | | | | [address] | | | | | | [phone] | | | | | | | | +--------+ + + + + | 11/14/ | Appointment | Hematology & | B/C, Pod [address] | | | 2019 | | Oncology | [place], | | | | | | [place] [address] | | +--------+ + + + + [...] | | | | | | [place] | | | | | | [address] | | | | | | [phone] | | | | | | | | +--------+ + + + + | 11/28/ | Appointment | Hematology & | B/C, Pod [address] | | | 2018 | | Oncology | [place], | | | | | | [place] [address] | | +--------+ + + + + | 12/12/ | Clinical | | | | | 2018 | Support | | | | | | Staff | | | | +--------+ + + + + | 12/12/ | Office | Hematology & | Taz Mcneal, | | | 2018 | Visit | Oncology | FABIANA-C [address] | | | | | | [address] | | | | | | [place], [place] | | | | | | [address] | | | | | | [phone] | | | | | | | | +--------+ + + + + | 12/12/ | Appointment | Hematology & | B/C, Pod [address] | | | 2019 | | Oncology | [place], | | | | | | [place] [address] | | +--------+ + + + + [...]
--- OUTSIDE RECORDS SUMMARY | ~2018-11-06 | XMS | Encounter Summary ---
Demographics + + + | Address | [address] | | | [place] [address] | + + + | Home Phone | | + + + | Preferred Language | Unknown | + + + | Marital Status | | + + + | Restorationism Affiliation | NRP | + + + [...] | | | | | [place] [address] | | + + + + + Care Team Providers + +------+ + | Care Agricultural Chemist Name | Role | Phone | + +------+ + | Piotr Plummer MD | PCP | | + +------+ + Encounter Details +--------+ + + + + | Date | Type | Department | Care Team | Description | +--------+ + + + + | 10/02/ | Post Form Remover | Hematology/Medical | Toni Mccrary, | | | 2019 | | [facility] | ,PhD [address] | | | | | for Health & Healing | [place], [place] | | | | | [address] | [address] | | | | | Mailcode: [facility] | [phone] | | | | | for Health and | | | | | | Healing, [address] | | | | | | [place], [place] | | | | | | [address] | | | | | | [phone] | | | +--------+ + + + [...] Rd | | | | | | [place] [address] | | +--------+ + + + + | 11/14/ | Office | Hematology & | Taz Mcneal, | | | 2019 | Visit | Oncology | FABIANA-Cindy [address] | | | | | | [address] | | | | | | [facility] [place] | | | | | | [address] | | | | | | [phone] | | | | | | | | +--------+ + + + + | 11/14/ | Appointment | Hematology & | B/C, Pod [address] | | | 2019 | | Oncology | [place], | | | | | | [place] [address] | | +--------+ + + + + [...] [place] | | | | | | [address] | | | | | | [phone] | | | | | | | | +--------+ + + + + | 11/28/ | Appointment | Hematology & | B/C, Pod [address] | | | 2019 | | Oncology | [place], | | | | | | [place] [address] | | +--------+ + + + + | 12/12/ | Clinical | | | | | 2019 | Support | | | | | | Staff | | | | +--------+ + + + + | 12/12/ | Office | Hematology & | Taz Mcneal, | | | 2018 | Visit | Oncology | PA-C [address] [facility] | | | | | | [address] | | | | | | [place], [place] | | | | | | [address] | | | | | | [phone] | | | | | | | | +--------+ + + + + | 12/12/ | Appointment | Hematology & | B/C, Pod [address] | | | 2019 | | Oncology | [place], | | | | | | [place] [address] | | +--------+ + + + + as of this encounter Visit Diagnoses Not on filein this encounter"
--- OUTSIDE RECORDS SUMMARY | ~2018-11-06 | XMS | Encounter Summary ---
Demographics + + + | Address | [address] | | | [place] [address] | + + + | Home Phone [...] | | | | | [place] [address] | | + + + + + Care Team Providers + +------+ + | Care Calculating Machine Operator Name | Role | Phone [...] | | | | adenocarcino | ,PhD 2033 | | | | | | ma (HCC) | [address] | | | | | | Liver | [place], | | | | | | metastases | [place] | | | | | | (HCC) | [address] | | | | | | Procedures | Phone: | | | | | | CT CHEST, | [phone] | | | | | | ABDOMEN AND | Fax: | | | | | | PELVIS W IV | [phone] | | | | | | CONTRAST | | | + +--------+ + + + + Diagnostic Testing (Routine) + +--------+ + + [...] | | | | adenocarcino | ,PhD 4613 | | | | | | ma (HCC) | [address] | | | | | | Liver | [place], | | | | | | metastases | [place] | | | | | | (HCC) | [address] | | | | | | Procedures | Phone: | | | | | | CT CHEST, | [phone] | | | | | | ABDOMEN AND | Fax: | | | | | | PELVIS W IV | [phone] | | | | | | CONTRAST | | | + +--------+ + + + + Reason for Visit Diagnostic Testing (Routine) + +--------+ + + + + | Status | Reason | Specialty | Diagnoses / | Referred By | Referred To | | | | | Procedures | Contact | Contact | + +--------+ + + + + | New Request | | Radiology | Diagnoses | Hermann, | | | | | | Pancreatic | Toni, | | | | | | adenocarcino | ,PhD 3730 | | | | | | makeda ([facility]) | [address] | | | | | | Liver | [place], | | | | | | metastases | [place] | | | | | | ([facility]) | [address] | | | | | | Procedures | Phone: | | | | | | CT CHEST, | [phone] | | | | | | ABDOMEN AND | Fax: | | | | | | PELVIS W IV | [phone] | | | | | | CONTRAST | | | + +--------+ + + + + Encounter Details +--------+ + + + + | Date | Type | Department | Care Team | Description | +--------+ + + + + | 10/17/ | Hospital | Radiology/Imaging | Toni Mccrary, | | | 2019 | Encounter | Lab at [facility] 3[address] | ,PhD [address] | | | | | [address] | [place], [place] | | | | | Mailcode: [facility] | [address] | | | | | [facility] | [phone] | | | | | and [address] | | | | | | [place], [place] | | | | | | [address] | | | | | | [phone] | | | +--------+ + + + [...] | 1 | 09/13/19 | | | ypnuzw-gfhkqvfy-yaoo | meals and 1 | capsule | [...] [address] | | | | | | [place] [address] | | +--------+ + + + + | 11/14/ | Office | Hematology & | Taz Mcneal, | | | 2019 | Visit | Oncology | PA-C [address] | | | | | | [address] | | | | | | [place], [place] | | | | | | [address] | | | | | | [phone] | | | | | | | | +--------+ + + + + | 11/14/ | Appointment | Hematology & | B/C, Pod [address] | | | 2019 | | Oncology | [place], | | | | | | [place] [address] | | +--------+ + + + + [...] Rd | | | | | | [place], [place] | | | | | | [address] | | | | | | [phone] | | | | | | | | +--------+ + + + + | 11/28/ | Appointment | Hematology & | B/C, Pod [address] | | | 2018 | | Oncology | [place], | | | | | | [place] [address] | | +--------+ + + + + [...] Rd | | | | | | [place], [place] | | | | | | [address] | | | | | | [phone] | | | | | | | | +--------+ + + + + | 12/12/ | Appointment | Hematology & | B/C, Pod [address] | | | 2018 | | Oncology | [address] [place], | | | | | | [place] [address] | | +--------+ + + + + as of this encounter Procedures + +--------+ + + + | Procedure Name | Priori | Date/Time | Associated Diagnosis | Comments | | | ty | | | | + +--------+ + + + | CT CHEST, ABDOMEN | Routin | 10/17/2018 | Pancreatic | Results for this | | AND PELVIS W IV | e | 5:56 PM | adenocarcinoma (HCC) | procedure are in the | | CONTRAST | | PDT | Liver metastases | results section. | | | | | (HCC) | | + +--------+ + + + in this encounter Results CT CHEST, ABDOMEN AND [...] mm left lower lobe pulmonary nodule, unchanged () -No pleural | | | fluid. Right [...] lower lobe | | pulmonary nodule, unchanged (4/87)-No pleural fluid.Right chest wall port tip terminates [...] malignant neoplasm of liver | + + Administered Medications + +--------+ +-------+------+------+ | Medication Order | MAR | Action | Dose | Rate | Site | | | Action | Date | | | | + +--------+ +-------+------+------+ | heparin 100 unit/mL IV flush | Given | 10/17/2018 | 500 | | | | 500 Units 500 Units, | | 17:50 | Units | | | | intravenous, NEEDED, Starting | | PDT | | | | | 10/17/18 at 1749, Until Wed | | | | | | | 10/17/18 at 2148, deaccessing | | | | | | | line/port per protocol | | | | | | + +--------+ +-------+------+------+ +---+---+ | | | +---+---+ + +---------+ +--------+---+---+ | iohexol (OMNIPAQUE) 350 mg | IV Push | 10/17/2018 | 100 mL | | | | iodine/mL injection 100 mL 100 | | 17:56 | | | | | mL, intravenous, ONCE, 1 dose, | | PDT | | | | | 10/17/18 at 1830 | | | | | | + +---------+ +--------+---+---+ +---+---+ | | | +---+---+ in this encounter"
--- OUTSIDE RECORDS SUMMARY | ~2018-11-06 | XMS | Encounter Summary ---
Demographics + + + | Address | [address] | | | [place] [address] | + + + | Home Phone | | + + + | Preferred Language | Unknown | + + + | Marital Status | | + + + | Jain Affiliation | NRP | + + + | Race | White | + + + | Ethnic Group | Not or | + + + Author + + + | Author | [facility] | + + + | Organization | [facility] | + + + | Address | Unknown | + + + | Phone | Unavailable | + + + Support + + + + + | Name | Relationship | Address | Phone | + + + + + | ELSA GOODE | ECON | [address] | | | | | [place] [address] | | + + + + + Care Team Providers + +------+ + | Care Route Agent Name | Role | Phone | + +------+ + | Piotr Plummer MD | PCP | | + +------+ + Reason for Visit + + + | Reason | Comments | + + + | Patient education | apixaban | + + + Encounter Details +--------+ + + + + | Date | Type | Department | Care Team | Description | +--------+ + + + + | 08/29/ | Documentati | Hematology/Medical | Toni Mccrary, | Patient education | | 2019 | on | [facility]cology at [place] | ,PhD [address] | (apixaban) | | | | for Health & Healing | [address] [place], [place] | | | | | [address] | [address] | | | | | Mailcode: [place] | [phone] | | | | | for Health and | | | | | | Healing, [address] | | | | | | [place], [place] | | | | | | [address] | | | | | | [phone] | | | +--------+ + + + [...] [address] | | | | | | [place] [address] | | +--------+ + + + + | 11/14/ | Office | Hematology & | Taz Mcneal, | | | 2018 | Visit | Oncology | PA-C [address] | | | | | | [address] | | | | | | [place] | | | | | | [address] | | | | | | [phone] | | | | | | | | +--------+ + + + + | 11/14/ | Appointment | Hematology & | B/C, Pod [address] | | | 2019 | | Oncology | [place] | | | | | | [place] [address] | | +--------+ + + + + | 11/28/ | Clinical | | | | | 2019 | Support | | | | | | Staff | | | | +--------+ + + + + | 11/28/ | Office | Hematology & | Taz Mcneal, | | | 2018 | Visit | Oncology | PACristi [address] [facility] | | | | | | [address] | | | | | | [place] | | | | | | [address] | | | | | | [phone] | | | | | | | | +--------+ + + + + | 11/28/ | Appointment | Hematology & | B/C, Pod [address] | | | 2018 | | Oncology | [place] | | | | | | [place] [address] | | +--------+ + + + + | 12/12/ | Clinical | | | | | 2018 | Support | | | | | | Staff | | | | +--------+ + + + + | 12/12/ | Office | Hematology & | Taz Mcneal, | | | 2018 | Visit | Oncology | PA-C [address] [facility] | | | | | | [address] | | | | | | [place], [place] | | | | | | [address] | | | | | | [phone] | | | | | | | | +--------+ + + + + | 12/12/ | Appointment | Hematology & | B/C, Pod [address] | | | 2018 | | Oncology | [place], | | | | | | [place] [address] | | +--------+ + + + + [...]
--- OUTSIDE RECORDS SUMMARY | ~2018-11-06 | XMS | Encounter Summary ---
Demographics + + + | Address | [address] | | | [place] [address] | + + + | Home Phone [...] | | | | | [place] [address] | | + + + + + Care Team Providers + +------+ + | Care Relationship Specialist Name | Role | Phone | [...] | [facility] at [facility] | [address] [place], | | | | | [address] | [place] [address] | | | | | Mailcode: [place] | | | | | | for Health and | | | | | | [facility] [address] | | | | | | [place], [place] | | | | | | [address] | | | | | | [phone] | | | +--------+ + + + [...] | 1 | 09/13/19 | | | xohatt-fbxyzwet-ojex | meals and 1 | capsule | [...] & 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 Refer to MAR and Onc Lines and Transfusions doc flowsheet for treatment details.in this enc ounter Plan of Treatment +--------+ + + + + | Date | Type | Specialty | Care Team | Description | +--------+ + + + + | 11/14/ | Appointment | Hematology & | RnMoustapha | | | 2018 | | Oncology | [address] | | | | | | [place] [address] | | +--------+ + + + + | 11/14/ | Office | Hematology & | Taz Mcneal, | | | 2018 | Visit | Oncology | OLYA [address] | | | | | | [address] | | | | | | [place], [place] | | | | | | [address] | | | | | | [phone] | | | | | | | | +--------+ + + + + | 11/14/ | Appointment | Hematology & | B/C, Pod [address] | | | 2018 | | Oncology | [place], | | | | | | [place] [address] | | +--------+ + + + + [...] [place] | | | | | | [address] | | | | | | [phone] | | | | | | | | +--------+ + + + + | 11/28/ | Appointment | Hematology & | B/C, Pod [address] | | | 2019 | | Oncology | [place], | | | | | | [place] [address] | | +--------+ + + + + | 12/12/ | Clinical | | | | | 2018 | Support | | | | | | Staff | | | | +--------+ + + + + | 12/12/ | Office | Hematology & | Taz Mcneal, | | | 2018 | Visit | Oncology | PA-C [address] [facility] | | | | | | [address] | | | | | | [place], [place] | | | | | | [address] | | | | | | [phone] | | | | | | | | +--------+ + + + + | 12/12/ | Appointment | Hematology & | B/C, Pod [address] | | | 2019 | | Oncology | [place] | | | | | | [place] [address] | | +--------+ + + + + [...] + | [facility] | [address] [facility] | [place] [address] | | | OF CARE TESTS | [...] | + + + + + | [facility] | [address] | [place] [address] | | | SERVICES, CORE | PARK [...] (LAB) | None | None /hpf | [facility] | | | | | SERVICES, CORE | + +---------+ + + | SQUAMOUS EPITHELIAL | Few | None, Few /hpf | [facility] | | | | | SERVICES, CORE | + +---------+ + + | MUCOUS | Few | None, Few /hpf | [facility] | | | | | SERVICES, CORE | + +---------+ + + | NON-SQUAMOUS EPITH | Few (A) | None /hpf | [facility] | | | | | SERVICES, CORE | + +---------+ + + | HYALINE CASTS | 0 | 0 - 2 /lpf | [facility] | | | | | SERVICES, CORE | + +---------+ + + | GRANULAR CASTS | 0 | 0 - 2 /lpf | [facility] | | | | | SERVICES, [...] | + + + + + | [facility] | [address] | [place] [address] | | | SERVICES, ELISHA | [address] | | | + + + + + URINE SCREEN FOR CULTURE (10/17/2018 2:13 PM) + + + + + | Component | Value | Ref Range | Performed At | + + + + + | URINE SCREEN FOR | Sent for Culture (A) | Negative | [facility] | | CULTURE | | | [...] [facility] | [address] | [place] [address] | | | [address] | JOLIE [...] | [facility] | [address] [facility] | [place] [address] | | | OF CARE TESTS | [...] | [facility] | [address] [facility] | [place] [address] | | | OF CARE TESTS | [...] | + + + + + | [facility] | [address] | [place] [address] | | | ELISHA TRAMMELL | [address] [...]
--- OUTSIDE RECORDS SUMMARY | ~2018-11-06 | XMS | Clinical Summary ---
Demographics + + + | Address | [address] | | | [place] [address] | + + + | Home Phone | | + + + | Preferred Language | Unknown | + + + | Marital Status | | + + + | Moravian Affiliation | NRP | + + + | Race | White | + + + | Ethnic Group | Not or | + + + Author + + + | Author | NON REVENUE LOCATIONS | + + + | Organization | NON REVENUE LOCATIONS | + + + | Address | Unknown | + + + | Phone | Unavailable | + + + Support + + + + + | Name | Relationship | Address | Phone | + + + + + | ELSA GOODE | ECON | [address] | | | | | [place] [id number] | | + + + + + Care Team Providers + +------+ + | Care Health Safety Coordinator Name | Role | Phone | + +------+ + | Steffi Barraza MD | PP | | + +------+ + Source Comments KAR[facility] is fully live on both [facility] Ambulatory and [facility] InPatient.[facility] Allergies No Known Allergies Current Medications + + +---------+---------+------+------+-------+ | Prescription | Sig. | Disp. | Refills | Star | End | Statu | | | | | | t | Date | s | | | | | | Date | | | + + +---------+---------+------+------+-------+ | metoprolol | Take 1 tablet (25 | | | 01/2 | | Activ | | succinate 25 mg oral | mg) by mouth every | | | 10/03 | | e | | tablet extended | morning and 2 | | | 18 | | | | release 24 | tablets (50 mg) by | | | | | | | hrIndications: | mouth every evening | | | | | | | Cystoid macular | | | | | | | | edema, left eye | | | | | | | + + +---------+---------+------+------+-------+ | multivitamin oral | Take 1 tablet by | | | | | Activ | | tabletIndications: | mouth once daily. | | | | | e | | Cystoid macular | | | | | | | | edema, left eye | | | | | | | + + +---------+---------+------+------+-------+ | nitroglycerin 400 | Place under tongue. | | | 07/18 | | Activ | | mcg/spray | | | | 10/03 | | e | | translingual | | | | 18 | | | | spray,non-aerosolInd | | | | | | | | ications: Cystoid | | | | | | | | macular edema, left | | | | | | | | eye | | | | | | | + + +---------+---------+------+------+-------+ | traZODone 50 mg | Take 1 tablet by | | | 07/18 | | Activ | | oral | mouth at bedtime as | | | 10/03 | | e | | tabletIndications: | needed | | | 18 | | | | Cystoid macular | | | | | | | | edema, left eye | | | | | | | + + +---------+---------+------+------+-------+ | acetaminophen 500 | Take 500 mg by mouth | | | | | Activ | | mg oral tablet | every six hours as | | | | | e | | | needed. | | | | | | + + +---------+---------+------+------+-------+ | docusate sodium | Take 1 capsule by | | | 01/2 | | Activ | | (COLACE) 100 mg oral | mouth two times | | | 5/20 | | e | | capsule | daily. | | | 19 | | | + + +---------+---------+------+------+-------+ | prochlorperazine | Take 0.5-1 tablets | 60 | 5 | 02/0 | | Activ | | 10 mg oral | by mouth every six | tablet | | 6/20 | | e | | tabletIndications: | hours as needed for | | | 19 | | | | Pancreatic | nausea/vomiting. Max | | | | | | | adenocarcinoma (HCC) | dose: 40 mg/day | | | | | | + + +---------+---------+------+------+-------+ | loperamide 2 mg | Take 2 caps | 30 | 5 | 02/0 | | Activ | | oral | initially then 1 cap | capsule | | 6/20 | | e | | capsuleIndications: | every 2 hours until | | | 19 | | | | Pancreatic | diarrhea free for | | | | | | | adenocarcinoma (HCC) | 12 hours as needed. | | | | | | + + +---------+---------+------+------+-------+ | LORazepam 1 mg | Take 0.5-1 tablets | 30 | 5 | 02/0 | | Activ | | oral | by mouth every six | tablet | | 6/20 | | e | | tabletIndications: | hours as needed | | | 19 | | | | Pancreatic | (second line for | | | | | | | adenocarcinoma (HCC) | nausea or for | | | | | | | | sleep). | | | | | | + + +---------+---------+------+------+-------+ | | Apply a thick layer | 30 g | 7 | 02/0 | | Activ | | lidocaine-prilocaine | to intact skin and | | | 6/20 | | e | | 2.5-2.5 % topical | cover with an | | | 19 | | | | creamIndications: | occlusive dressing. | | | | | | | Pancreatic | | | | | | | | adenocarcinoma (HCC) | | | | | | | + + +---------+---------+------+------+-------+ | ibuprofen 200 mg | Take 400 mg by mouth | | | | | Activ | | oral tablet | every six hours as | | | | | e | | | needed. | | | | | | + + +---------+---------+------+------+-------+ | omeprazole 40 mg | Take 1 capsule by | 30 | 9 | 02/ | | Activ | | oral capsule,delayed | mouth once daily. | capsule | | 04/05 | | e | | | Administer 30 to 60 | | | 19 | | | | release(DR/EC)Indica | minutes before meals | | | | | | | tions: [...] specified | | | | | | | + + +---------+---------+------+------+-------+ | | Take 2 capsules with | 240 | 1 | 02/2 | | Activ | | dsryre-ouxpnucy-mewq | meals and 1 | capsule | | 8/20 | | e | | ase (CREON) | capsules with | | | 19 | | | | 24,000-76,000 | snacks. Swallow, do | | | | | | | -120,000 unit oral | not crush or chew. | | | | | | | capsule,delayed | Always take with | | | | | | | release(DR/EC)Indica | food. Max: 8/day | | | | | | | tions: Pancreatic | | | | | | | | adenocarcinoma | | | | | | | | (HCC), Liver | | | | | | | | metastases (HCC), | | | | | | | | Postprandial | | | | | | | | abdominal bloating | | | | | | | + + +---------+---------+------+------+-------+ | morphine ER 15 mg | Take 1 tablet by | 56 | 0 | 04/0 | | Activ | | oral tablet extended | mouth every twelve | tablet | | 3/20 | | e | | release | hours. | | | 19 | | | + + +---------+---------+------+------+-------+ | polyethylene | Mix 8.5-17 g in | 119 g | 5 | 04/0 | | Activ | | glycol (MIRALAX) 17 | liquid and drink | | | 3/20 | | e | | gram/dose oral | once daily as needed | | | 19 | | | | powderIndications: | for constipation. | | | | | | | constipation | Indications: | | | | | | | | constipation | | | | | | + + +---------+---------+------+------+-------+ | oxyCODONE | Take 1-3 tablets by | 50 | 0 | 10/15 | | Activ | | (immediate release) | mouth every four | tablet | | 02/02 | | e | | 5 mg oral | hours as needed for | | | 19 | | | | tabletIndications: | severe pain. | | | | | | | Pancreatic [...] specified | | | | | | | + + +---------+---------+------+------+-------+ | apixaban 5 mg oral | Take 1 tablet by | 60 | 11 | 10/15 | | Activ | | tabletIndications: | mouth two times | tablet | | 7/20 | | e | | Pancreatic | daily. 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) | 10/20/2018 | + + + | Advanced care planning/counseling discussion | 09/12/2018 | + + + | Pancreatic insufficiency | 09/12/2018 | + + + | Subjective visual disturbance | 09/11/2018 | + + + + + | Last Assessment & Plan: - 2-week history of peripheral | | bilateral (occasionally unilaterally) pixelated/scintillating | | perception intermittently.- No evidence of RD/RT on examination- | | Recent diagnosis and undergoing chemo for Pancreatic Cancer.- OCT | | without signficant outer retinal photoreceptor involvement to | | suggest autoimmune retinopathy- 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, but unlikely to cause | | sudden change as patient is perceivingPlan:- Re-evaluate in 4-6 | | months or sooner PRN | + + + + + | Encounter for antineoplastic chemotherapy | 09/09/2018 | + + + | Embolism due to any device, implant or graft | 08/29/2018 | + + + | Right upper quadrant abdominal pain | 08/13/2018 | + + + | Continuous severe abdominal pain | 08/13/2018 | + + + | Pancreatic adenocarcinoma (HCC) | 08/07/2018 | + + + | Liver metastases (HCC) | 08/07/2018 | + + + | Evaluated for clinical trial enrollment | 08/07/2018 | + + + | Nuclear senile cataract of right eye | 09/25/2017 | + + + + + | Last Assessment & Plan: [facility] - [facility] plans on monitoring | | for now | + + + + + | Cystoid macular edema, left eye | 09/21/2017 | + + + + + | Overview: [facility] following CE IOL 06/19/17 By history, | | never felt vision was clear post operatively. CME noted at post | | op visit on 07/31/17, with significant improvement on PF and | | Acular QID plus diamox 250mg BID Diamox stopped and drops | | tapered but CME began to recur - resolved on very slow taper of | | drops Last Assessment & Plan: Off drops since January 2018 - | | no recurrence - follow | + + Encounters +--------+ + + + + | Date | Type | Specialty | Care Team | Description | +--------+ + + + + | 11/02/ | Telephone | | Toni Olivera, | Scheduling | | 2019 | | | MDPhD | | +--------+ + + + + | 10/31/ | Office | | Taz Mcneal, | Pancreatic | | 2018 | Visit | | PA-C | adenocarcinoma (HCC) | | | | | | (Primary Dx); Liver | | | | | | metastases (HCC); | | | | | | Biliary obstruction | | | | | | due to cancer (HCC); | | | | | | Pancreatic | | | | | | insufficiency; | | | | | | Encounter for | | | | | | antineoplastic | | | | [...] | | | | | constipation | +--------+ + + + + | 10/31/ | Hospital | | B/C, Pod | | | 2018 | Encounter | | | | +--------+ + + + + | 10/31/ | Hospital | | B/C, Pod | | | 2018 | Encounter | | | | +--------+ + + + + | 10/31/ | MyChart | | Taz Mcneal, | Prescriptions | | 2018 | Encounter | | PA-Cindy | | +--------+ + + + + | 10/31/ | Refill | | Toni Olivera, | Refill Request | | 2018 | | | PhD BARB | (apixaban 5 mg oral | | | | | | tablet) | +--------+ + + + + | 10/30/ | Pest Controller | | Toni Olivera, | | | 2018 | | | PhD BARB | | +--------+ + + + + 10/30/ | Telephone | | Toni Olivera, | Refill Request | | 2018 | | | PhD BARB | (apixaban 5 mg) | +--------+ + + + + | 10/29/ | Refill | | Toni Olivera, | Refill Request | | 2018 | | | PhD BARB | | +--------+ + + + + | 10/25/ | Telephone | | Rosemarie Galan RD | Medical nutrition | | 2018 | | | | therapy | +--------+ + + + 10/25/ | Telephone | | Toni Olivera, | Appointment Question | | 2018 | | | PhD BARB | (Bio Stent ) | +--------+ + + + + 10/24/ | Refill | | Toni Olivera, | Refill Request | | 2018 | | | PhD BARB | (morphine ER 15 mg | | | | | | ER) | +--------+ + + + + | 10/24/ | Telephone | | Kelly Prince | Telephone follow-up | | 2019 | | | MD Kiet | (10/23/18) | +--------+ + + + + | 10/23/ | Hospital | | Kelly Prince | | | 2019 | Encounter | | MD Kiet | | +--------+ + + + + | 10/22/ | Anesthesia | | Darlin Perkins | | | 2019 | Event | | D, DDS | | +--------+ + + + + | 10/22/ | Telephone | | Toni Olivera, | Appointment Question | | 2019 | | | PhD BARB | | +--------+ + + + + | 10/19/ | Transcribe | | Transcribe | | | 2019 | Orders | | Terra Hayes, | | | | | | | | +--------+ + + + + | 10/19/ | Telephone | | Toni Olivera, | Care Coordination | | 2018 | | | PhD BARB | (ERCP); Radiology | | | | | | Order ("Upper GI | | | | | | series" - need MD | | | | | | clarification for | | | | | | valid orders.) | +--------+ + + + + | 10/19/ | Telephone | | Haresh Alas W | Lab findings, | | 2018 | | | MD Lynda | teaching, guidance, | | | | | | and counseling | +--------+ + + + + | 10/19/ | Telephone | | Toni Olivera, | Care Coordination | | 2018 | | | PhD BARB | (IV hydration twice | | | | | | weekly / ); Urine | | | | | | Results | +--------+ + + + + | 10/19/ | Pest Controller | | Haresh Alas W | Bile duct | | 2019 | | | MD Lydna | obstruction (Primary | | | | | | Dx) | +--------+ + + + + | 10/18/ | Pest Controller | | Toni Olivera, | | | 2019 | | | PhD BARB | | +--------+ + + + + | 10/17/ | Hospital | | Toni Olivera, | | | 2019 | Encounter | | PhD BARB | | +--------+ + + + + | 10/17/ | Office | | Toni Olivera, | Pancreatic | | 2019 | Visit | | PhD BARB | adenocarcinoma (HCC) | | | | | | (Primary Dx); Liver | | | | | | metastases (HCC); | | | | | | Right upper quadrant | | | | | | abdominal pain; | | | | | | Encounter for | | | | | | antineoplastic | | | | | | chemotherapy; | | | | | | Pancreatic | | | | | | insufficiency; | | | | | | Embolism due to any | | | | | | device, implant or | | | | | | graft, subsequent | | | | | | encounter; | | | | | | Anticoagulated by | | | | | | anticoagulation | | | | | | treatment; Biliary | | | | | | obstruction due to | | | | | | cancer (HCC) | +--------+ + + + + | 10/17/ | Office | | Taz Mcneal, | Pancreatic | | 2019 | Visit | | PA-C | adenocarcinoma (HCC) | | | | | | (Primary Dx); Liver | | | | | | metastases (HCC); | | | | | | Encounter for | | | | | | antineoplastic | | | | | | chemotherapy | +--------+ + + + + | 10/17/ | Hospital | | A, Pod | | | 2018 | Encounter | | | | +--------+ + + + + | 10/17/ | Documentati | | Toni Olivera, | | | 2019 | on | | PhD BARB | | +--------+ + + + + | 10/16/ | Procedure | | | | | 2019 | Pass | | | | +--------+ + + + + | 10/16/ | Pest Controller | | Toni Olivera, | | | 2018 | | | PhD BARB | | +--------+ + + + + | 10/16/ | Pest Controller | | Toni Olivera, | Pancreatic | | 2018 | | | PhD BARB | adenocarcinoma (HCC) | | | | | | (Primary Dx); Liver | | | | | | metastases (HCC) | +--------+ + + + + | 10/09/ | Telephone | | Patrick Nazario MD | Medication Questions | | 2018 | | | | | +--------+ + + + + | 10/09/ | Refill | | Toni Olivera, | Refill Request | | 2018 | | | PhD BARB | (apixaban 5 mg (74 | | | | | | tabs) oral | | | | | | tablets,dose pack) | +--------+ + + + + | 10/08/ | Hospital | | A, Pod | | | 2018 | Encounter | | | | +--------+ + + + + | 10/03/ | Hospital | | A, Pod | | | 2018 | Encounter | | | | +--------+ + + + + | 10/03/ | MyChart | | Rufus Santiago, | RE: Simethicone | 2018 | Encounter | | MICHELE,ACHPN | | +--------+ + + + + | 10/03/ | Documentati | | Yuly Arboleda | Medical nutrition | | 2018 | on | | | therapy | +--------+ + + + + | 10/02/ | Pest Controller | | Toni Olivera, | | | 2018 | | | PhD BARB | | +--------+ + + + + | 10/02/ | Pest Controller | | Toni Olivera, | | | 2018 | | | PhD BARB | | +--------+ + + + + | 10/01/ | Emergency | | Kwan Mishra, | | | 2018 | | | MD | | +--------+ + + + + 09/27/ | Office | | Toni Winchester, | Pancreatic | | 2018 | Visit | | MD | adenocarcinoma (HCC) | | | | | | (Primary Dx) | +--------+ + + + + | 09/27/ | MyChart | | Rufus Santiago, | Pain Medication | | 2018 | Encounter | | MICHELEACHEMILI | | +--------+ + + + + | 09/27/ | Refill | | Rufus Santiago, | Refill Request | | 2019 | | | CEIRRA BAUTISTA | | +--------+ + + + + | 09/27/ | Telephone | | Toni Olivera, | Lab Draw | | 2018 | | | PhD BARB | | +--------+ + + + + | 09/26/ | Hospital | | A, Pod | | | 2018 | Encounter | | | | +--------+ + + + + | 09/26/ | Documentati | | Work, Social | Social Work Notes | | 2018 | on | | | (social work) | +--------+ + + + + | 09/26/ | Telephone | | Toni Olivera, | Other | | 2019 | | | PhD BARB | | +--------+ + + + + | 09/25/ | Pest Controller | | Toni Olivera, | | | 2018 | | | PhD BARB | | +--------+ + + + + | 09/23/ | MyChart | | Toni Olivera, | Rash worsening | | 2018 | Encounter | | PhD BARB | | +--------+ + + + + | 09/20/ | Telephone | | Work, Social | Questionnaire | | 2018 | | | | (distress screening) | +--------+ + + + + | 09/19/ | Office | | Taz Mcneal, | Liver metastases | | 2018 | Visit | | PA-C | (HCC) (Primary Dx); | | | | | | Pancreatic | | | | | | adenocarcinoma | | | | | | (HCC); Encounter for | | | | | | antineoplastic | | | | | | chemotherapy; | | | | | | Pancreatic | | | | | | insufficiency; | | | | | | Embolism due to any | | | | | | device, implant or | | | | | | graft, subsequent | | | | | | encounter | +--------+ + + + + | 09/19/ | Hospital | | A, Pod | | | 2018 | Encounter | | | | +--------+ + + + + | 09/19/ | Hospital | | Rn, Fast Track | | | 2018 | Encounter | | | | +--------+ + + + + | 09/19/ | Documentati | | Rosemarie Galan, LEORA | Medical nutrition | | 2019 | on | | | therapy | +--------+ + + + + | 09/18/ | Pest Controller | | Toni Olivera, | | | 2019 | | | PhD BARB | | +--------+ + + + + | 09/18/ | Documentati | | Toni Olivera, | | | 2019 | on | | PhD BARB | | +--------+ + + + + | 09/17/ | MyChart | | Toni Olivera, | RE: Appointment | | 2018 | Encounter | | PhD BARB | | +--------+ + + + + | 09/13/ | Telephone | | Rosemarie Galan RD | Medical nutrition | | 2018 | | | | therapy | +--------+ + + + + | 09/12/ | Office | | Rufus Santiago, | Pancreatic | 2018 | Visit | | ANP,ACHPN | adenocarcinoma (HCC) | | | | | | (Primary Dx); | | | | | | Abdominal bloating | | | | | | with cramps; | | | | | | Pancreatic | | | | | | insufficiency; | | | | | | Advanced care | | | | | | planning/counseling | | | | | | discussion | +--------+ + + + + | 09/12/ | Telephone | | Rufus Santiago, | Refill Request | | 2018 | | | CIERRA BAUTISTA | (Mayra) | +--------+ + + + + | 09/11/ | Office | | Nunu Meza, | Subjective visual | | 2018 | Visit | | MD | disturbance (Primary | | | | | | Dx); 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, left | | | | | | eye | +--------+ + + + + | 09/07/ | [facility] | | Toni Olivera, | RE: Chemo schedule | | 2018 | Encounter | | MDPhD | | +--------+ + + + + | 09/06/ | MyChart | | Toni Olivera, | RE: Eliquis dosage | | 2019 | Encounter | | PhD BARB | | +--------+ + + + + | 09/05/ | Hospital | | AOfe | | | 2018 | Encounter | | | | +--------+ + + + + | 09/05/ | Documentati | | Rosemarie Galan RD | Medical nutrition | | 2018 | on | | | therapy | +--------+ + + + + 09/04/ | Refill | | Toni Olivera, | Symptom Management | | 2018 | | | PhD BARB | | +--------+ + + + 09/04/ | Telephone | | Toni Olivera, | Prior Authorization | | 2018 | | | PhD BARB | Request (apixaban 5 | | | | | | mg (74 tabs) oral | | | | | | tablets,dose pack) | +--------+ + + + + | 09/03/ | Pest Controller | | Toni Olivera, | | | 2018 | | | PhD BARB | | +--------+ + + + + | 08/31/ | MyChart | | Rufus Santiago, | Appointment Date | | 2018 | Encounter | | CIERRA BAUTISTA | | +--------+ + + + + | 08/31/ | MyChart | | Toni Olivera, | Meds Mix | 2018 | Encounter | | PhD BARB | | +--------+ + + + + | 08/29/ | Hospital | | A Pod | | 2018 | Encounter | | | | +--------+ + + + + | 08/29/ | Documentati | | Toni Olivera, | Patient education | | 2018 | on | | PhD BARB | (apixaban) | +--------+ + + + + | 08/28/ | Hospital | | Maykel Santacruz MD | | | 2018 | Encounter | | | | +--------+ + + + + | 08/28/ | Pest Controller | | Toni Olivera, | | | 2018 | | | PhD BARB | | +--------+ + + + + | 08/24/ | Telephone | | Martin Carrero, | Follow-up encounter | | 2018 | | | | | +--------+ + + + + | 08/23/ | Telephone | | Toni Olivera, | Telephone follow-up | 2018 | | | PhD BARB | (cycle 1, day 1 of | | | | | | gemcitabine, | | | | | | Abraxane); Treatment | | | | | | Questions | +--------+ + + + + | 08/23/ | Telephone | | Martin Carrero, | | | 2018 | | | | | +--------+ + + + + | 08/23/ | Documentati | | Toni Olivera, | Genetic test (Temranjitus | | 2018 | on | | PhD BARB | xT) | +--------+ + + + + | 08/22/ | Hospital | | Toni Olivera, | | 2018 | Encounter | | PhD BARB | | +--------+ + + + + | 08/22/ | Hospital | | Ofe Narayanan | | 2018 | Encounter | | | | +--------+ + + + + | 08/22/ | Documentati | | Work, Social | Social Work Notes | | 2018 | on | | | | +--------+ + + + + | 08/22/ | Pest Controller | | Toni Olivera, | Pancreatic | | 2018 | | | ,PhD | adenocarcinoma (HCC) | | | | | | (Primary Dx); Liver | | | | | | metastases (HCC) | +--------+ + + + + | 08/22/ | Documentati | | Rosemarie Galan RD | Medical nutrition | | 2018 | on | | | therapy | +--------+ + + + + | 08/22/ | Documentati | | Khalida Mckeon, | Medication Education | | 2018 | on | | PharmD | (First cycle | | | | | | antiemetic teaching) | +--------+ + + + + | 08/22/ | Pest Controller | | Martin Carrero, | Pancreatic | | 2019 | | | MD | adenocarcinoma (HCC) | | | | | | (Primary Dx); | | | | | | Central line | | | | | | clotted, initial | | | | | | encounter (HCC) | +--------+ + + + + | 08/21/ | Office | | Toni Olivera, | Pancreatic | | 2018 | Visit | | PhD BARB | adenocarcinoma (HCC) | | | | | | (Primary Dx); Liver | | | | | | metastases (HCC); | | | | | | Encounter for | | | | | | antineoplastic | | | | | | chemotherapy | +--------+ + + + + | 08/21/ | Documentati | | Toni Olivera, | Patient education | | 2018 | on | | PhD BARB | (gemcitabine, | | | | | | Abraxane) | +--------+ + + + + | 08/21/ | Documentati | | Toni Olivera, | Genetic test | | 2018 | on | | PhD BARB | ([employer] CDx) | +--------+ + + + + | 08/20/ | Pest Controller | | Toni Olivera, | | | 2018 | | | PhD BARB | | +--------+ + + + + | 08/16/ | Telephone | | Martin Carrero | Pain | | 2018 | | | | | +--------+ + + + + | 08/16/ | Documentati | | Toni Olivera, | | | 2018 | on | | PhD BARB | | +--------+ + + + + | 08/15/ | Pest Controller | | Toni Olivera, | | | 2018 | | | PhD BARB | | +--------+ + + + + | 08/15/ | Pest Controller | | Toni Olivera, | | | 2018 | | | PhD BARB | | +--------+ + + + + | 08/15/ | Documentati | | Toni Olivera, | Genetic test | | 2018 | on | | PhD BARB | (Perthera ) | +--------+ + + + + | 08/15/ | Documentati | | Toni Olivera, | Scheduling | | 2018 | on | | PhD BARB | (gemcitabine-Abraxan | | | | | | e) | +--------+ + + + + | 08/14/ | Telephone | | Toni Olivera, | Telephone follow-up | | 2018 | | | PhD BARB | | +--------+ + + + + | 08/13/ | Lab | | | Pancreatic | | 2018 | | | | adenocarcinoma (HCC) | +--------+ + + + + | 08/13/ | Office | | Toni Olivera, | Liver metastases | | 2019 | Visit | | PhD BARB | (HCC) (Primary Dx); | | | | | | Right upper quadrant | | | | | | abdominal pain; | | | | | | Continuous severe | | | | | | abdominal pain; | | | | | | Pancreatic | | | | | | adenocarcinoma (HCC) | +--------+ + + + + | 08/13/ | Pest Controller | | Luzmaria Lawrence MD | | | 2019 | | | | | +--------+ + + + + | 08/13/ | Procedure | | | | | 2019 | Pass | | | | +--------+ + + + + | 08/13/ | Hospital | | Toni Olivera, | Canceled (Provider | | 2019 | Encounter | | PhD BARB | Request) | +--------+ + + + + | 08/10/ | Hospital | | Martin Carrero, | | | 2018 | Encounter | | MD | | +--------+ + + + + | 08/10/ | Hospital | | Martin Carrero, | | | 2018 | Encounter | | MD | | +--------+ + + + + | 08/10/ | Pharmacy | | | | | 2018 | Visit | | | | +--------+ + + + + | 08/10/ | Telephone | | Toni Olivera, | Medication | | 2018 | | | PhD BARB | management; Test | | | | | | Results (biopsy. | | | | | | F1?) | +--------+ + + + + | 08/10/ | Procedure | | | | | 2019 | Pass | | | | +--------+ + + + + | 08/10/ | Surgery | | Martin Carrero, | DIAGNOSTIC | | 2018 | | | MD | LAPAROSCOPY WITH | | | | | | SEGMENT 2-3 LIVER | | | | | | BIOPSY, | +--------+ + + + + | 08/09/ | Pest Controller | | Toni Olivera, | Pancreatic | | 2018 | | | PhD BARB | adenocarcinoma (HCC) | | | | | | (Primary Dx) | +--------+ + + + + 08/09/ | Pest Controller | | Toni Olivera, | Pancreatic | | 2018 | | | PhD BARB | adenocarcinoma (HCC) | | | | | | (Primary Dx) | +--------+ + + + + | 08/09/ | Telephone | | Toni Olivera, | Research Study | | 2018 | | | PhD BARB | | +--------+ + + + + | 08/08/ | Telephone | | Toni Olivera, | Research Study | | 2018 | | | PhD BARB | | +--------+ + + + + | 08/02/ | Anesthesia | | Kellie Riley, | | | 2018 | Event | | RN | | +--------+ + + + + from Last 3 Months Family History + + +------+ + | Medical History | Relation | Name | Comments | + + +------+ + | Diabetes | Brother | | | + + +------+ + | Diabetes | Father | | | + + +------+ + | Diabetes | Paternal | | | | | Grandmoth | | | | | er | | | + + +------+ + | Diabetes | Sister | | | + + +------+ + | Amblyopia | Neg Hx | | | + + +------+ + | Blindness | Neg Hx | | | + + +------+ + | Cancer | Neg Hx | | | + + +------+ + | Cataracts | Neg Hx | | | + + +------+ + | Glasses | Neg Hx | | | + + +------+ + | Glaucoma | Neg Hx | | | + + +------+ + | Heart Disease | Neg Hx | | | + + +------+ + | Macular degeneration | Neg Hx | | | + + +------+ + | Retinal detachment | Neg Hx | | | + + +------+ + | Retinitis pigmentosa | Neg Hx | | | + + +------+ + | Strabismus | Neg Hx | | | + + +------+ + + +------+--------+ + | Relation | Name | Status | Comments | + +------+--------+ + | Brother | | | | + +------+--------+ + | Father | | | | + +------+--------+ + | Paternal Grandmother | | | | + +------+--------+ + | Sister | | | | + +------+--------+ + Social History + + + +--------+ [...] on file | | + + + Last Filed Vital Signs + + + [...] PM PDT | + + + + Plan of Treatment +--------+ + + + + | Date | Type | Specialty | Care Team | Description | +--------+ + + + + | 11/14/ | Appointment | | Rn, Fast Track | | | 2018 | | | [address] | | | | | | [place] [address] | | +--------+ + + + + | 11/14/ | Office | | Taz Mcenal, | | | 2018 | Visit | | PA-C [address] | | | | | | [address] | | | | | | [place], [place] | | | | | | [address] | | | | | | [phone] | | | | | | | | +--------+ + + + + | 11/14/ | Appointment | | B/C, Pod [address] | | | 2018 | | | [place], | | | | | | [place] [address] | | +--------+ + + + + | 11/28/ | Clinical | | | | | 2019 | Support | | | | | | Staff | | | | +--------+ + + + + | 11/28/ | Office | | Taz Mcneal, | | | 2018 | Visit | | PA-C [address] | | | | | | [address] | | | | | | [place], [place] | | | | | | [address] | | | | | | [phone] | | | | | | | | +--------+ + + + + | 11/28/ | Appointment | | B/C, [address] | | | 2018 | | | [place], | | | | | | [place] [address] | | +--------+ + + + + | 12/12/ | Clinical | | | | | 2018 | Support | | | | | | Staff | | | | +--------+ + + + + | 12/12/ | Office | | Taz Mcneal, | | | 2018 | Visit | | OLYA [address] | | | | | | [address] | | | | | | [place], [place] | | | | | | [address] | | | | | | [phone] | | | | | | | | +--------+ + + + + | 12/12/ | Appointment | | B/C, [address] | | | 2019 | | | [place], | | | | | | [place] [address] | | +--------+ + + + + + + + + + | Health Maintenance | Due Date | Last Done | Comments | + + + + + | Influenza (Flu) | Completed | 04/30/2018, 04/30/2018, | | | vaccination | | 05/17/2017, Additional history | | | | | exists | | + + + + + | Pneumococcal (Adult) | Completed | 04/30/2018, 09/01/2014, | | | | | 05/25/2010, Additional history | | | | | exists | | + + + + + Implants + +-------+--------+ +--------+--------+--------+ | Implanted | Type | Area | Manufacture | Device | Expira | Model | | | | | r | | tion | / | | | | | | Identi | Date | Serial | | | | | | fier | | / Lot | + +-------+--------+ +--------+--------+--------+ | Biliary | STENT | | | | | / | | Stent-10/23/2018Implanted: Qty: | | | | | | /[id number] | | 1 on 10/23/2018 by | | | | | | 795 | | Kelly Prince MD | | | | | | | + +-------+--------+ +--------+--------+--------+ | Port Implantable Infusion | | Right: | ANGIO | | 12/14/ | [id number] | | Smart Port Titanium 8fr 2.7mm | | Chest | DYNAMICS | | 2020 | 80STPD | | 1.5mm Fluoromax Polyurethane | | | | | | 0 / | | Detached - | | | | | | [id number] | | [id number]: Qty: 1 on | | | | | | 64 | | 08/10/2018 by lAise, | | | | | | | | MD Martin | | | | | | | + +-------+--------+ +--------+--------+--------+ + +------+------+ +--------+--------+--------+ | Explanted | Type | Area | Manufacture | Device | Expira | Model | | | | | r | | tion | / | | | | | | Identi | Date | Serial | | | | | | fier | | / Lot | + +------+------+ +--------+--------+--------+ | Port | | | | | | | + +------+------+ +--------+--------+--------+ Procedures + +--------+ + + + | [...] | + +--------+ + + + | ETT | Routin | 10/23/2018 | | Results for this | | | e | 9:55 AM | | procedure are in the [...] + +--------+ + + + | CT ABDOMEN AND | Urgent | 08/13/2018 | Right upper | Results for this | | PELVIS W IV CONTRAST | | 1:22 PM | quadrant abdominal | procedure are in the | | | | PST | pain Continuous | results section. | | | | | severe abdominal | | | | | | pain Pancreatic | | | | | | adenocarcinoma (HCC) | | | | | | Liver metastases | | | | | | (HCC) [...] | + +--------+ + + + | [facility] ONLY | Routin | 08/13/2018 | Pancreatic | Results for this | | | e | 11:43 AM | adenocarcinoma (HCC) | procedure are in the | | | | PST | | results section. | + +--------+ + + + | LAB REPORTS | | 08/11/2018 | | Results for this | | [...] | + +--------+ + + + | ETT | Routin | 08/10/2018 | | Results for this | | | e | 1:42 PM | | procedure are in the [...] section. | + +--------+ + + + from Last 3 Months Results [facility] (), SERUM (10/31/2018 12:07 PM)Only the most recent of 8 results within e time period is included. + + + + + | Component | Value | Ref Range | Performed At | + + + + + | [facility] GI (19) | 2,500.9 (H) | <=37.0 U/mL | [facility] | | [facility] | | | [address] | + + + + + + + | Specimen | + + | Blood - Blood | + + + + + + + | Performing | Address | City/State/Zipcode | Phone Number | | Organization | | | | + + + + + | [facility] | [address] | [place] [address] | | | ELISHA TRAMMELL | [address] | | | + + + + + CBC AND AUTO DIFF - [facility] (10/31/2018 12:03 PM) + + + + + | Component | Value | Ref Range | Performed At | + + + + + | WHITE CELL COUNT | 11.81 (H) | 3.50 - 10.80 K/cu mm | [facility] | | [...] + + + | [facility] | [address] | [place] [address] | | | [facility] | | | | [facility] | | | | + + + + + [facility] - COMPLETE METABOLIC SET (10/31/2018 12:03 [...] >60 mL/min | [facility] | | [place] [facility] | | | SERVICES, | | | | | [facility] | | [facility] + | | | | | [facility]AL[facility] | + + + + + | EGFR NON | >60 | >60 mL/min | [facility] | | -[place] | | | SERVICES, | | | [...] 6.8 | 6.4 - 8.2 g/dL | [facility] | | PLASMA (LAB) | | [...] | + + + + + | [facility] | [address] | [place] [address] | | | [facility] | | | | | [facility] + HEALING | | | | + + + + + ANE ETT (10/23/2018 9:55 AM) + + + | Narrative | Performed At | + + + | Darlin Perkins DDS 10/23/2018 9:58 AM AIRWAY | | | MANAGEMENT - ETT Time of Intubation: 10/23/2018 9:20 AM Intubation | | | Reason: For surgical procedure Positioning: Sniffing and Supine | | | Location Performed: [place] OXYGENATION Patient was preoxygenated No | | | apneic oxygenation Grade: Grade 0 - Ventilation by mask not | | | attempted Manual in-Line Stabilization: No Induction:Rapid | | | sequence, with Cricoid Pressure INTUBATION ATTEMPT 1 Blade | | | Type: Ann Blade #: 3 Videolaryngoscopy: Glidescope Intubation | | | Adjuncts: w/ Stylet Laryngoscopic View: Grade II Surgical Airway: | | | no Surgical Airway ETT DETAILS ETT Type:Standard, Hi-Lo Cuffed | | | Intubation Type: Oral Cuff Status: Cuffed Size: 6.5 ETT secured | | | with adhesive tape Depth at Lip: 22 cm Airway Leak: No | | | CONFIRMATION Number of Attempts: 1 Atraumatic Laryngoscopy Positive | | | for EtCO2:Waveform capnography Breath Sounds: Bilateral and equal | | | NARRATIVE Attending physically present Authorized by CANDELARIO MOE | | | E Performed by DARLIN PERKINS Procedure Comments: Patient | | | preoxygenated to EtO2 >80% prior to induction. RSI given past | | | history of difficult intubation. Grade 2 view with Glidescope with T3 | | | blade and cricoid pressure. Stylet gently bent for greater anterior | | | curvature/ ETT passed easily through open cords. No apparent trauma | | | to lips, gums, teeth, or tongue. | | + + + ERCP (10/23/2018 8:43 AM) + + + | Narrative | Performed At | + + + | MRN: | [facility] | | [id number] Date: 10/23/2018Patient Name: Philip Gonzalez #: | ENDOSCOPY | | [id number] of : 1945CSN: [id number] Type: | | | AmbulatoryRoom: GI 3Procedure: | | | ERCPIndications: elevated LFTs, hx of metastatic PDAC | | | with new simón dil and early | | | satietyProviders: KELLY PRINCE MD | | | (Doctor), KENYA FELIPE RN | | | (Nurse), BETY ORTIZ (Warehouse Stock Clerk)Referring | | | MD: HARESH ALAS JR, MDRequesting Provider: | | | Medicines: Indomethacin 100 mg VA, General | | | AnesthesiaComplications: No immediate [...] | procedure. The Olympus | | | [id number] Therapeutic Endoscope #[id number] | | | was introduced through the | | | mouth, and advanced to the | | | duodenum and used to inject contrast into the bile duct. | | | The Olympus [id number]-[id number] | | | Duodenoscope #[id number] was | | | introduced through the mouth, and advanced to the | | | duodenum and used to locate | | | the major papilla. The | | | Olympus [id number]-[id number] Peds Colonooscope #[id number] was | | | introduced through the mouth, | | | and advanced to the duodenum | | | and used to locate the major papilla. The ERCP | | | was accomplished without | | | difficulty. The patient | | | tolerated the procedure well.Estimated Blood Loss: Estimated | | | blood loss: none.Findings: The airport refueling handler film was normal. The | | | [...] level of gastroparesis as wellRecommendation: Fu with | | | Hermann Low residue | | | diet Continue to monitor for | | | symptoms of progressive GOLUDYTHA Kiet PRINCE MD10/23/2018 10:36:19 | | | AMNumber of Addenda: 0Note Initiated On: 10/23/2018 8:[address] [facility] Letter | | | to: STEFFI BARRAZA MD, TONI OLIVERA MD | | + + + [...] (L) | 3.5 - 4.7 g/dL | [facility] | | (LAB) [...] | + + + + + | [facility] | [address] | [place] [address] | | | SERVICES, ELISHA | [address] | | | + + + + + GI PROCEDURE UNIT FLUOROSCOPY (10/23/2018 8:12 AM) + + + | Narrative | Performed At | + + + | See GI procedure for results. | | + + + CARDIOLOGY (10/23/2018)Only the most recent of 2 results within the time period is included . + + + | Narrative | Performed At | + + + | | | + + + CT CHEST, ABDOMEN AND PELVIS W IV [...] mm left lower lobe pulmonary nodule, unchanged (/87) -No pleural | | | fluid. Right [...] | | | + +---------+ + + UA 10 DIP, POC (10/17/2018 3:00 PM) [...] [facility] | [address] | [place] [address] | | | OF CARE TESTS | [...] [facility] | [address] | [place] [address] | | | ELISHA TRAMMELL | [address] | | | + + + + + URINE, MICROSCOPIC EXAM (10/17/2018 2:13 PM) + +---------+ + + | Component | Value | Ref Range | Performed At | + +---------+ + + | RED CELLS | 4 (H) | 0 - 3 /hpf | [facility] | | | | | [address] [facility] | + +---------+ + + | WHITE CELLS | 5 | 0 - 5 /hpf | [facility] | | | | | [facility] | + +---------+ + + | BACTERIA | None | None /hpf | [facility] | | | | | [address] | + +---------+ + + | YEAST [...] 0 | 0 - 2 /lpf | [facility] | | | | | SERVICES, CORE | + +---------+ + + | GRANULAR CASTS | 0 | 0 - 2 /lpf | [facility] | | | | | SERVICES, CORE | + +---------+ + + | CELLULAR CASTS | 0 | <=0 /lpf | [facility] | | | | | SERVICES, CORE | + +---------+ + + | TRIPLE P04 CRYSTALS | None | None, Few /hpf | [facility] | | | | | SERVICES, CORE | + +---------+ + + | CALCIUM OXALATE GREGORIA | None | None, Few /hpf | [facility] | | | | | SERVICES, CORE | + +---------+ + + | URIC ACID CRYSTALS | None | None, Few /hpf | [facility] | | | | | SERVICES, CORE | + +---------+ + + | AMORPHOUS CRYSTALS | None | None, Few /hpf | [facility] | | | | | SERVICES, CORE | + +---------+ + + + + | Specimen | + + | Urine | + + + + + + + | Performing | Address | City/State/Zipcode | Phone Number | | Organization | | | | + + + + + | [facility] | [address] | [place] [address] | | | SERVICES, [place]IS[place] | [address] | | | + + + + + URINE SCREEN FOR CULTURE (10/17/2018 2:13 PM) + + + + + | Component | Value | Ref Range | Performed At | + + + + + | URINE SCREEN FOR | Sent for Culture (A) | Negative | [facility] | | CULTURE | | | SERVICES, CORE | + + + + + + + | Specimen | + + | Urine | + + + + + | Narrative | Performed At | + + + | Culture Screen Positive, specimen sent for culture. | [facility] | | | LABORATORY | | | SERVICES, CORE | + + + + + + + + | Performing | Address | City/State/Zipcode | Phone Number | | Organization | | | | + + + + + | [facility] | [address] | [place] [address] | | | SERVICES, CORE | [address] | | | + + + + + CBC+DIFF,POC (10/17/2018 1:42 PM)Only the most recent of 7 results within the time period is included. + + + + + | Component [...] [facility] | [address] | [place] [address] | | | OF CARE TESTS | | | | + + + + + CMP, POC (BMP+LFT) (10/17/2018 1:39 PM)Only the most recent of 7 results within the time ranjit apple is included. + +---------+ + + | Component | [...] + + + + | [facility] | [address] | [place] [address] | | | OF CARE TESTS | | | | + + + + + C. DIFFICILE TOXIN, W/REFLEX CONFIRMATION IF INDETERMINATE RESULTS (10/01/2018 5:38 PM) + + + + + | Component | Value | Ref Range | Performed At | + + + + + | C.DIFFICILE TOXIN | Negative | Negative | [facility] | | | | | SERVICES, CORE | + + + + + + + | Specimen | + + | Stool - Rectum | + + + + + + + | Performing | Address | City/State/Zipcode | Phone Number | | Organization | | | | + + + + + | [facility] | [address] | [place] [address] | | | SERVICES, CORE | [address] | + + + + + | [facility] | [address] | [place] [address] | | | SERVICES, ELISHA | [address] | | | + + + + + CBC AND AUTO DIFF (10/01/2018 5:36 PM)Only the most recent of 2 results within the time chano penn is included. + + + + + | Component | Value | Ref Range | Performed At | + + + + + | WHITE CELL COUNT | 2.74 (L) | 3.50 - 10.80 K/cu mm | [facility] | | | | | SERVICES, [...] 41.1 | 35.1 - 46.3 fL | [facility] [...] 1.5 | 1.0 - 3.0 % | [facility] | | | | | SERVICES, CORE | + + + + + | BASO % | 0.7 | 0.0 - 2.0 % | [facility] | | | | | SERVICES, CORE | + + + + + | IG% | 0.7Comment: Increased | 0.0 - 1.0 % | [facility] | | | immature granulocytes | [...] | 1.80 - 7.70 K/cu mm | [facility] | | | | | SERVICES, [...] | 0.00 - 0.10 K/cu mm | [facility] | | | [...] | + + + + + | [facility] | [address] | [place] [address] | | | SERVICES, CORE | [address] | | | + + + + + COMPLETE METABOLIC SET (NA,K,CL,CO2,BUN,CREAT,GLUC,CA,AST,ALT,BILI TOTAL,ALK PHOS,ALB,PROT TOTAL) (10/01/2018 5:36 PM)Only the most recent of 2 results within the time period is incl uded. + + + + + | Component [...] >60 mL/min | [facility] | | [place] | | | SERVICES, CORE | + + + + + | EGFR NON | >60 | >60 mL/min | [facility] | | -[place] | | | SERVICES, CORE | + [...] 7.0 | 6.4 - 8.2 g/dL | [facility] [...] T CMNT | No Hemo | | [facility] | | | | | SERVICES, CORE | + + + + + | AST CMNT | No Hemo | | [facility] | | | | | SERVICES, CORE | + + + + + + + | Specimen | + + | Blood - Blood | + + + + + | Narrative | Performed At | + + + | GFR is estimated using the MDRD equation recommended by the | [facility] | | National Kidney Disease Education Program. Estimated GFR | LABORATORY | | Interpretive Information: <60 mL/min/1.73 sq | SERVICES, CORE | | m Chronic Kidney Disease <15 [...] | + + + + + | [facility] | [address] | [place] [address] | | | SERVICES, CORE | [address] | | | + + + + + BLOOD BANK HOLD TUBE - DON T PROCESS (10/01/2018 5:36 PM) + + + + + | Component | Value | Ref Range | Performed At | + + + + + | SPECIMEN COLLECTED, | Sample received with | | [facility] | | HELD | adeq label/volume [...] | + + + + + | [facility] | [address] | [place] [address] | | | SERVICES, | [address] | | | | TRANSFUSION MEDICINE | | | | + + + + + LIPASE, PLASMA (10/01/2018 5:36 PM) + + + + + | Component | Value | Ref Range | Performed At | + + + + + | LIPASE (LAB) | 1,676 (H) | 152 - 353 U/L | [facility] | | | | | [address] | + + + + + + + | Specimen | + + | Blood - Blood | + + + + + + + | Performing | Address | City/State/Zipcode | Phone Number | | Organization | | | | + + + + + | [facility] | [address] | [place] [address] | | | SERVICES, [place] | [address] | | | + + + + + ED INFORMATION EXCHANGE (10/01/2018 4:51 PM) + + + | Narrative | Performed At | + + + | [id number] [id number] Criteria Met PDMP | [facility] | | [...] MG | | | TABLET 56 RUFUS VALDERRAMADWELL 0 2018-09-05 OXYCODONE HCL 5 MG TABLET | | | 50 TONI OLIVERA MD 0 2018-08-22 LORAZEPAM 1 MG TABLET 30 | | | TONI OLIVERA MD 0 2018-08-17 ACETAMINOPHEN-COD #3 TABLET 30 | | | [place] [facility] 0 2018-08-13 OXYCODONE HCL 5 MG TABLET 11 [place] | | | LYO 0 2018-08-13 OXYCODONE HCL 5 MG TABLET 39 [place] LYO 0 | | | 2018-08-10 OXYCODONE HCL 5 MG TABLET 30 [place] [facility] 0 | | | 2018-07-30 ACETAMINOPHEN-COD #3 TABLET 28 HARESH ALAS JR, MD 0 | | | 2018-07-24 LORAZEPAM 0.5 MG TABLET 20 STEFFI BARRAZA MD 0 | | | 2018-07-14 LORAZEPAM 0.5 MG TABLET 10 CRYS DÍAZ I, M.D. 0 | | | 2018-04-11 HYDROCODONE-ACETAMIN 5-325 MG 16 ROLF MARIA TERCJaime 0 | | | Rx Summary Metric Count CS II-V Rx 0 CS-II Rx 0 Quantity | | | Dispensed 320 [facility] 8 [facility] 5 Benzos 0 | | | Opioids 0 Long Acting Opioids 0 E.D. Visit Count (12 | | | mo.) Facility Visits [facility] 1 Total | | | 1 Note: Visits indicate total known visits. Recent | | | Emergency Department Visit Summary Date Facility City State Type | | | Diagnoses or Chief Complaint Oct 01, 2018 [facility], [place] | | | [place] Emergency 10,800. Diarrhea | | | Recent Inpatient Visit Summary No recorded inpatient visits. | | | Care Providers There are no care providers on record at this time. | | | [employer] This patient has registered at the [facility] | | | [facility] Emergency Department For more information | | | visit: | | | [email or web address] | | | [email or web address] The above information [...] for additional information. | | | 2019 [employer], [employer] - [place], [place] - | | | [email or web address] | | + + + + + | Procedure Note | + + | Service Account, Rtf Results Inbound - 10/01/2018 4:52 PM PDT Formatting of this | | note may be different from the original.[id number] [id number] Met | | PDMPSecurity and SafetyNo recent Security Events currently on fileED Care | | GuidelinesThere are currently no ED Care Guidelines for this patient. Please check your | | facility's medical records system.Prescription Drug Report (12 Mo.)Rx DetailsFill Date | | Drug Description Qty. Prescriber CS MED 2018-09-27 MORPHINE SULF ER 15 MG TABLET 56 | | RUFUS SANTIAGO 0 2018-09-05 OXYCODONE HCL 5 MG TABLET 50 TONI OLIVERA MD 0 | | 2018-08-22 LORAZEPAM 1 MG TABLET 30 TONI OLIVERA MD 0 2018-08-17 ACETAMINOPHEN-COD #3 | | TABLET 30 [facility] 0 2018-08-13 OXYCODONE HCL 5 MG TABLET 11 LU[place] LYO 0 | | 2018-08-13 OXYCODONE HCL 5 MG TABLET 39 LUZMARIA LYO 0 2018-08-10 OXYCODONE HCL 5 MG | | TABLET 30 [place] [facility] 0 2018-07-30 ACETAMINOPHEN-COD #3 TABLET 28 HARESHGiovana ALAS, | | MD FRANCISCO 0 2018-07-24 [...] 0 E.D. Visit Count (12 mo.)Facility Visits [facility] | | [facility] 1 Total 1 Note: Visits indicate total known visits. Recent | | Emergency Department Visit SummaryDate Facility City State Type Diagnoses or Chief | | Complaint Oct 01, 2018 [facility] [place] Emergency | | 10,800. Diarrhea Recent Inpatient Visit SummaryNo recorded inpatient visits. Care | | ProvidersThere are no care providers on record at this time. [employer] PortalThis | | patient has registered at the [facility] Emergency Department | | For more information visit: | | [email or web address] The above | | information is provided for the sole purpose of patient treatment. Use of this | | information beyond the terms of Data Sharing Memorandum of Understanding and License | | Agreement is prohibited. In certain cases not all visits may be represented. Consult the | | aforementioned facilities for additional information. 2019 [employer] | | [employer] - [place], [place] - [email or web address] | |Rx Summary | |Metric Count | |CS II-V Rx 0 | |CS-II Rx 0 | |Quantity Dispensed 320 | |[facility] Prescribers 8 | |[facility] Pharm[facility] 5 | |Benzos 0 | |Opioids 0 | |Long Acting Opioids 0 | | | | | | | |E.D. Visit Count (12 mo.) | |Facility Visits | |[facility] 1 | |Total 1 | |Note: Visits indicate total known visits. | | | |Recent Emergency Department Visit Summary | |Date Facility City State Type Diagnoses or Chief Complaint | |Oct 01, 2018 [facility] [place] Emergency | | 10,800. Diarrhea | | | | | | | |Recent Inpatient Visit Summary | |No recorded inpatient visits. | | | |Care Providers | |There are no care providers on record at this time. | |Collective Portal | |This patient has registered at the [facility] Emergency Departmen t | |For more information visit: [email or web address] | |The above information is provided for the sole purpose of patient treatment. Use of this in formation beyond the terms of Data Sharing Memorandum of Understanding and License Agreement is prohibited. In | |certain cases not all visits may be represented. Consult the aforementioned facilities for additional information. | |2019 [employer] - [place], [place] - [email or web address] | + + + + + + + | Performing | Address | City/State/Zipcode | Phone Number | | Organization | | | | + + + + + | [facility] | [address], | [place], [place] | [phone] | | TECHN[employer]IES | [address] | [address] | | + + + + + VERNELL BRYAN (09/11/2018 8:27 AM) + + + | Narrative | Performed At | + + + | Warehouse Stock Clerk | [facility] | | [employer]: [...] | + + + + + | [facility] | [address] | [place] [address] | | | [place] | [facility]. | | | + + + + + PROCEDURE NOTE (08/28/2018 12:10 PM)IR PORT PROCEDURE (08/28/2018 9:48 AM) + + + | Narrative | Performed At | + + + | PROCEDURE: Removal of right chest port with placement of new port | [facility] | | PRIMARY NON GARMENT SEWING MACHINE OPERATOR: Varsha Avalos MD ANGIOGRAPHY ATTENDING: | RADIOLOGY [...] tip of the indwelling Port-A-Cath. A 5 Bahraini | | | dilator was inserted and [...] exchanged for an 8 | | | Bahraini peel-away sheath. The new catheter was advanced [...] were discussed with the patient's oncologist, Toni Olivera, | | | Sadia. He will manage [...] Res In Interface - 08/29/2018 6:02 PM PST PROCEDURE: | | Removal of right chest port with placement of new port PRIMARY NON GARMENT SEWING MACHINE OPERATOR: Varsha | | MD Robbie ANGIOGRAPHY ATTENDING: [...] tip of the indwelling Port-A-Cath. A 5 Bahraini dilator was | | inserted and advanced [...] was | | exchanged for an 8 Bahraini peel-away sheath. The new catheter was advanced [...] were discussed with the patient's oncologist, Toni Olivera M.D. He will manage the | | anticoagulation. I have personally reviewed the images and, if necessary, edited the | | report. I agree with the report as now presented. Final signature: MD Joselito Edwards | 08/29/2018 6:01 PM Preliminary: Maykel Santacruz MD Dictation initiated: Joselito Edwards MD 08/29/2018 5:41 PM | + + + +---------+ + + | Performing | Address | City/State[facility] | Phone Number | | Organization | | | | + +---------+ + + | [facility] | | | | | VOICE RECOGNITION 2 | | | | + +---------+ + + X-RAY CHEST 2 VIEW (08/22/2018 2:57 PM) [...] | | | + +---------+ + + CBC (HEMOGRAM) ONLY (08/22/2018 9:15 AM) + [...] 36.5 | 36.0 - 46.0 % | [facility] | | | | | SERVICES, CORE | + + + + + | MCV | 87.7 | 80.0 - 100.0 fL | [facility] | | | | | SERVICES, CORE | + + + + + | MCHC | 32.1 | 32.0 - 36.0 g/dL | [facility] | | | | | SERVICES, CORE | + + + + + | RDW SD | 37.8 | 35.1 - 46.3 fL | [facility] | | | | | SERVICES, CORE | + + + + + | PLATELET COUNT | 377 | 150 - 400 K/cu mm | [facility] | | | | | SERVICES, CORE | + + + + + | MPV | 9.0 (L) | 9.7 - 12.3 fL | [facility] | | | | | SERVICES, CORE | + + + + + | NRBC% | 0.0 | 0.0 - 0.3 % | [facility] | | | | | SERVICES, CORE | + + + + + | NRBC# | 0.00 | 0.00 - 0.02 K/cu mm | [facility] | | | | | SERVICES, CORE | + + + + + + + | Specimen | + + | Blood - Blood | + + + + + + + | Performing | Address | City/State/Zipcode | Phone Number | | Organization | | | | + + + + + | [facility] | [address] | [place] [address] | | | SERVICES, ELISHA | [address] [...] | + + + + + | [facility] | [address] | [place] [address] | | | SERVICES, CORE | [address] | | | + + + + + APTT (ACT. PART. THROMBO TIME) (08/22/2018 9:15 AM) + +-------+ + + | Component | Value | Ref Range | Performed At | + +-------+ + + | APTT | 30.3 | 26.0 - 36.0 seconds | [facility] | | | | | ELISHA [...] | Range: (75 - 120) sec | [facility], CORE | | Heparin levels of 0.35 - 0.7 U/mL | | + + + + + + + + | Performing | Address | City/State/Zipcode | Phone Number | | Organization | | | | + + + + + | [facility] | [address] | [place] [address] | | | SERVICES, CORE | [address] [...] | + + + + + | [facility] | [address] | [place] [address] | | | SERVICES, ELISAH | [address] | | | + + + + + MAGNESIUM, PLASMA (08/22/2018 9:15 AM) + +-------+ + + | Component | Value | Ref Range | Performed At | + +-------+ + + | MAGNESIUM,PLASMA | 2.3 | 1.6 - 2.6 mg/dL | [facility] | | | | | SERVICES, CORE | + +-------+ + + + + | Specimen | + + | Blood - Blood | + + + + + + + | Performing | Address | City/State/Zipcode | Phone Number | | Organization | | | | + + + + + | [facility] | [address] | [place] [address] | | | SERVICES, CORE | [address] [...] | + + + + + | [facility] | [address] | [place] [address] | | | SERVICES, CORE | [address] | | | + + + + + ONCOLOGY PATHWAYS TREATMENT DECISION (08/15/2018) + + [...] | | | were discussed with the instructor adjunct surgical technician on 08/13/2018 at | | | approximately 1:45 PM by Sacha Eastman DO. I have personally | | | reviewed the images and, if necessary, edited the report. I agree with | | | the report as now presented. Final signature: Felix Almaguer, | | | 08/13/2018 5:07 PM Preliminary: [...] | |These results were discussed with the instructor adjunct surgical technician on 08/13/2018 at approximately 1:45 [...] | | | + +---------+ + + SILVESTRE CHRISTIANSEN (08/13/2018 11:43 AM) [...] 1.021Comment: Specific | 1.005 - 1.030 | [facility] | | | [place] performed by | | VALERI CORE | | | refractometry | | | + + + + + + + | Specimen | + + | Urine - Clean catch | + + + + + + + | Performing | Address | City/State/Zipcode | Phone Number | | Organization | | | | + + + + + | [facility] | [address] | [place] [address] | | | SERVICES, CORE | [address] | | | + + + + + LAB REPORTS (08/11/2018) + + + | Narrative | Performed At | + + + | | | + + + PROCEDURE NOTE (08/10/2018 4:26 PM)INSERTION OF RIGHT TUNNELED CENTRAL VENOUS CATHETER WIT H PORT (08/10/2018 2:31 PM) + + + | Narrative | Performed At | + + + | Luzmaria Lawrence MD 08/10/2018 3:20 PM [facility] | | | Department of Surgery Operative Note Author: Luzmaria Lawrence MD, | | | [facility] Fellow ID: Philip Goode Date | | | of the Procedure: 08/10/2018 Preoperative Diagnosis: Metastatic | | | pancreatic cancer to liver Postoperative Diagnosis: same | | | Procedure: 1. Placement of right internal jugular vein Power Port | | | with U/S guidance and floroscopy 2. Diagnostic laparoscopy with | | | liver biopsy Surgeon: Martin Carrero MD Sweatband Shaper(s): | | | Luzmaria Lawrence MD [facility], Galo Oneal MD R5 Indication: A 72 [...] port site, through which we fei the 8-yakut | | | port line itself and [...] | | | Minimally Invasive Surgery Fellow [facility] | | | [place] Pager [phone] | | + + + LAPAROSCOPIC LIVER BIOPSY (08/10/2018 2:31 PM) + + + | Narrative | Performed At | + + + | Luzmaria Lawrence MD 08/10/2018 3:20 PM [facility] | | | Department of Surgery Operative Note Author: Luzmaria Lawrence MD, | | | [facility] MIS Fellow ID: Philip Goode Date | | | of the Procedure: 08/10/2018 Preoperative Diagnosis: Metastatic | | | pancreatic cancer to liver Postoperative Diagnosis: same | | | Procedure: 1. Placement of right internal jugular vein Power Port | | | with U/S guidance and floroscopy 2. Diagnostic laparoscopy with | | | liver biopsy Surgeon: Martin Carrero MD Sweatband Shaper(s): | | | Luzmaria Lawrence MD MTGalo Velazquez MD R5 Indication: A 72 y.o. female [...] port site, through which we fei the 8-yakut | | | port line itself and [...] | | | Minimally Invasive Surgery Fellow [facility] | | | [place] Pager [phone] | | + + + PD-L1 (08/10/2018 2:01 PM) [...] + | Foundation | [facility] | | [facility] [address] [place] [address] | REFERENCE LAB | |[place] [address] | | | | | | | [...] REFERENCE LAB | | | | | [facility] | | | [address] | | | [place] [address] | | + + + + + + + + | Performing | Address | City/State/Zipcode | Phone Number | | Organization | | | | + + + + + | [facility] | | | | + + + + + | [facility] | see below | | | + + + + + LAB OTHER (08/10/2018 2:01 [...] | [facility] | | | Media Carltoner on | | LAB | | | 09-05-2018 | | | + + + + + | NORMAL RANGE | | | [facility] | | | | | LAB | + + + + + | REFERRAL LAB NAME | Colin [address] | | [facility] | | | Jordan [address]ER dav[address]son | | LAB | | | [address] | | | + + + + + + + | Specimen | + + | Slide-Block - Liver | + + + + + + + | Performing | Address | City/State/Zipcode | Phone Number | | Organization | | | | + + + + + | [facility] | | | | + + + + + | [facility] | see below | | | + + + + + SURGICAL PATHOLOGY (08/10/2018 2:01 PM) + + + + + | Component | Value | Ref Range | Performed At | + + + + + | Clinical History | 72 year old female with | | [facility] | | | a history of metastatic | | OF PATHOLOGY | | | pancreatic | | | | | adenocarcinoma | | | + + + + + | Final Pathologic | A. Liver, Segment 2-3 | | [facility] | | Diagnosis | liver, biopsy: [...] | PathologistPathology, | | | | | [facility] | | | | | [facility] electronic | | | | | signature [...] | Received is one specimen | | [facility] | | | fresh labeled with the | | OF PATHOLOGY | | | patient's name (initials | | | | | DARIO) and medical record | | | | | number [id number]. | | | | | Liver, Segment [...] | Ancillary | Analyte specific | | [facility] | | Information | reagents are [...] | | | | | determined by [facility] | | | | | laboratories. It [...] | + + + + + | [facility] | [address] | [place] [address] | | | PATHOLOGY | [address] | | | + + + + + X-RAY CHEST 1 VIEW (08/10/2018 1:55 PM) + + + | Narrative | Performed At | + + + | - At the time of the study, no professional interpretation was | | | requested. - | | + + + ANE ETT (08/10/2018 1:42 PM) + + + | [...] 4 blade | | | by Dr. Boliavr and was reported as a grade 3 view of the arytenoids, | | | a bougie was passed and the ETT was threaded over the bougie. No | | | breath sounds or ET CO2 noted. The ETT was immediately removed and | | | the patient was ventilated by Dr. Bolivar while I prepared the Storz | | | CMac endoscope. Dr Bolivar proceeded with the fifth [...] ALIDA MCCORMICK | | + + + X-RAY FLUOROSCOPY [...] + | | | + + + from Last 3 Months Insurance + +--------+ +--------+ + + | Payer | Benefi | Subscriber | Type | Phone | Address | | | t Plan | ID | | | | | | / | | | | | | | Group | | | | | + +--------+ +--------+ + + | MEDICARE | MEDICA | xxxxxxxxxxx | Medica | [phone] | [address] | | | RE A & | | re | [phone] | [place] [address] | | | B | | | | | + +--------+ +--------+ + + | [employer] | MUTUAL | [phone] | Indemn | [phone]- | [employer] | | MEDICARE SUPPL | OF | | ity | [address] | | | [place] | | | | [id number] | | | MEDICA | | | | | | | RE | | | | | | | SUPPL | | | | | + +--------+ +--------+ + + + +--------+ +--------+ + + | Guarantor Name | Accoun | Relation to | Date | Phone | Billing Address | | | t Type | Patient | of | | | | | | | | | | + +--------+ +--------+ + + | PHILIP GOODE | Person | Self | [birth year] | Work: | [address] | | | venessa/Marty | | 1946 | [phone] | [place] [address] | | | seferino | | | [address] Home: | | | | | | | | | | | | | | [phone] | | | | | | [phone] | | + +--------+ +--------+ + +
--- OUTSIDE RECORDS SUMMARY | ~2018-11-06 | XMS | Encounter Summary ---
Demographics + + + | Address | [address] | | | [place] [address] | + + + | Home Phone | | + + + | Preferred Language | Unknown | + + + | Marital Status | | + + + | Zoroastrianism Affiliation | NRP | + + + [...] | | | | | [place] [address] | | + + + + + Care Team Providers + +------+ + | Care Machinist Mechanic Name | Role | Phone | [...] | | [address] | [place], [place] | adenocarcinoma | | | | Mailcode: Center | [address] | (HCC); Encounter for | | | | for Health and | [phone] | antineoplastic | | | | Healing, [address] | | chemotherapy; | | | | [place], [place] | | Pancreatic | | | | [address] | | insufficiency; | | | | [phone] | | Embolism due to any | [...] ABDOMEN AND PELVIS W IV CONTRAST Order: [id number] Performed: 08/13/2018 13:22 Status: Final result Visible [...] hematoma. These results were discussed with the rn medical surgical on 08/13/2018 at approximately 1:45 PM by [...] well tolerated so far --Proceed with C2D1 [place]/Abraxane today (09/20/2018) --I discussed the goals, objectives, risks, benefits, and toxicities of therapy and the pat ient wishes to proceed. --Will need close and frequent monitoring physical examinations and laboratory monitoring f or toxicities of ongoing cytotoxic chemotherapy. # Nutrition: Rosemarie Galan following - continue CREON per nutrition recs Taz Mcneal PA-C HEMATOLOGY/MEDICAL ONCOLOGY AT [facility] & [facility] [address] Mailcode: [place] [address] in this encounter Plan of Treatment +--------+ + + + + | Date | Type | Specialty | Care Team | Description | +--------+ + + + + | 11/14/ | Appointment | Hematology & | Moustapha Sher | | | 2019 | | Oncology | [address] | | | | | | [place] [address] | | +--------+ + + + + | 11/14/ | Office | Hematology & | Taz Mcneal, | | | 2019 | Visit | Oncology | O[place] [address] | | | | | | [address] | | | | | | [place], [place] | | | | | | [address] | | | | | | [phone] | | | | | | | | +--------+ + + + + | 11/14/ | Appointment | Hematology & | B/C, Pod [address] | | | 2018 | | Oncology | [place], | | | | | | [place] [address] | | +--------+ + + + + | 11/28/ | Clinical | | | | | 2018 | Support | | | | | | Staff | | | | +--------+ + + + + | 11/28/ | Office | Hematology & | Taz Mcneal, | | | 2018 | Visit | Oncology | [address] | | | | | | [address] | | | | | | [place], [place] | | | | | | [address] | | | | | | [phone] | | | | | | | | +--------+ + + + + | 11/28/ | Appointment | Hematology & | B/C, Pod [address] | | | 2018 | | Oncology | [place], | | | | | | [place] [address] | | +--------+ + + + + [...] [place] | | | | | | [address] | | | | | | [phone] | | | | | | | | +--------+ + + + + | 12/12/ | Appointment | Hematology & | B/C, [address] | | | 2019 | | Oncology | [place] | | | | | | [place] [address] | | +--------+ + + + + [...]
--- OUTSIDE RECORDS SUMMARY | ~2018-11-06 | XMS | Encounter Summary ---
Demographics + + + | Address | [address] | | | [place] [address] | + + + | Home Phone [...] Author + + + | Author | [facility] | + + + | Organization | [facility] | + + + | Address | Unknown | + + + | Phone | Unavailable | + + + Support + + + + + | Name | Relationship | Address | Phone | + + + + + | ELSA GOODE | ECON | [address] | | | | | [place] [address] | | + + + + + Care Team Providers + +------+ + | Care Press Worker Helper Name | Role | Phone | [...] | Oncology at [facility] | [address] [place], | | | | | [address] | [place] [address] | | | | | Mailcode: [place] | | | | | | for Health and | | | | | | Healing, [address] | | | | | | [place], [place] | | | | | | [address] | | | | | | [phone] | | | +--------+ + + + [...] | 1 | 09/13/19 | | | abqtkt-zlgmuuqh-adiq | meals and 1 | capsule | [...] abdomen Duration: chronic Narrative: Patient here for [place]/Abraxane. PAC right chest accessed with negative blood return. Tpa instilled. R AC accessed with 23g butterfly needle. CBC and CMP were drawn via PIV, resulted via POC and reviewed prior to rel easing labs. Positive blood return on IV line prior and after infusion. Medications infused with 250ml NS sidearm bag. Care handed over to another marketing rotation associate prior to infusion completing. Refer to MAR [...] Rd | | | | | | [place] [address] | | +--------+ + + + + | 11/14/ | Office | Hematology & | Taz Mcneal, | | | 2019 | Visit | Oncology | [place] [address] | | | | | | [address] | | | | | | [place], [place] | | | | | | [address] | | | | | | [phone] | | | | | | | | +--------+ + + + + | 11/14/ | Appointment | Hematology & | B/C, Pod [address] | | | 2019 | | Oncology | [place], | | | | | | [place] [address] | | +--------+ + + + + [...] [place] | | | | | | [address] | | | | | | [phone] | | | | | | | | +--------+ + + + + | 11/28/ | Appointment | Hematology & | B/C, Pod [address] | | | 2019 | | Oncology | [place], | | | | | | [place] [address] | | +--------+ + + + + | 12/12/ | Clinical | | | | | 2018 | Support | | | | | | Staff | | | | +--------+ + + + + | 12/12/ | Office | Hematology & | Taz Mcneal, | | | 2018 | Visit | Oncology | [facility] [address] [facility] | | | | | | [address] | | | | | | [place] | | | | | | [address] | | | | | | [phone] | | | | | | | | +--------+ + + + + | 12/12/ | Appointment | Hematology & | B/C, Pod [address] | | | 2019 | | Oncology | [place] | | | | | | [place] [address] | | +--------+ + + + + [...] 7.6 | 3.5 - 10.8 10*3/uL | KARL [...] | [facility] | [address] | [place] [address] | | | OF CARE TESTS | | | | + + + + + CMP, POC (BMP+LFT) (09/26/2018 4:15 PM) + +---------+ + + | Component | Value | Ref Range | Performed At | + +---------+ + + | SODIUM, POC | 142 | 134 - 143 mmol/L | [facility] [...] + + | [facility] | [address] | [place] [address] | | | OF CARE TESTS | [...]
--- OUTSIDE RECORDS SUMMARY | ~2018-11-06 | XMS | Encounter Summary ---
Demographics + + + | Address | [address] | | | [place] [address] | + + + | Home Phone [...] | | | | | [place] [address] | | + + + + + Care Team Providers + +------+ + | Care Calculation Clerk Name | Role | Phone | + +------+ + | Piotr Plummer MD | PCP | | + +------+ + Reason for Visit + + + | Reason | Comments | + + + | Questionnaire | distress screening | + + + Encounter Details +--------+ + + + + | Date | Type | Department | Care Team | Description | +--------+ + + + + | 09/20/ | Telephone | Hematology/Medical | Work, Social | Questionnaire | | 2019 | | [facility] | | (distress screening) | | | | for Health & Healing | | | | | | [address] | | | | | | Mailcode: [facility] | | | | | | for Health and | | | | | | Healing, Building | | | | | | [place], [place] | | | | | | [address] | | | | | | [phone] | | | +--------+ + + + [...] Rd | | | | | | [place] [address] | | +--------+ + + + + | 11/14/ | Office | Hematology & | Taz Mcneal, | | | 2018 | Visit | Oncology | PA-C [address] | | | | | | [address] | | | | | | [place] | | | | | | [address] | | | | | | [phone] | | | | | | | | +--------+ + + + + | 11/14/ | Appointment | Hematology & | B/C, Pod [address] | | | 2018 | | Oncology | [place] | | | | | | [place] [address] | | +--------+ + + + + [...] Rd | | | | | | [place], [place] | | | | | | [address] | | | | | | [phone] | | | | | | | | +--------+ + + + + | 11/28/ | Appointment | Hematology & | B/C, Pod [address] | | | 2018 | | Oncology | [place], | | | | | | [place] [address] | | +--------+ + + + + [...] Rd | | | | | | [place], [place] | | | | | | [address] | | | | | | [phone] | | | | | | | | +--------+ + + + + | 12/12/ | Appointment | Hematology & | B/C, Pod [address] | | | 2019 | | Oncology | [place], | | | | | | [place] [address] | | +--------+ + + + + as of this encounter Visit Diagnoses Not on filein this encounter"
--- OUTSIDE RECORDS SUMMARY | ~2018-11-06 | XMS | Encounter Summary ---
Demographics + + + | Address | [address] | | | [place] [address] | + + + | Home Phone [...] | | | | | [place] [address] | | + + + + + Care Team Providers + +------+ + | Care Surplus Property Disposal Agent Name | Role | Phone | [...] | | 2019 | | [facility] [place] | ,PhD [address] | | | | | for Health & Healing | [facility] [place] | | | | | [address] | [address] | | | | | Mailcode: [place] | [phone] | | | | | for Health and | | | | | | [place] | | | | | | [place], [place] | | | | | | [address] | | | | | | [phone] | | | +--------+ + + + [...] | | | | | [place] [address] | | +--------+ + + + + | 11/14/ | Office | Hematology & | Taz Mcneal, | | | 2018 | Visit | Oncology | PA-C [address] | | | | | | [address] | | | | | | [place] | | | | | | [address] | | | | | | [phone] | | | | | | | | +--------+ + + + + | 11/14/ | Appointment | Hematology & | B/C, Pod [address] | | | 2018 | | Oncology | [place] | | | | | | [place] [address] | | +--------+ + + + + [...] Rd | | | | | | [place], [place] | | | | | | [address] | | | | | | [phone] | | | | | | | | +--------+ + + + + | 11/28/ | Appointment | Hematology & | B/C, Pod [address] | | | 2018 | | Oncology | [place], | | | | | | [place] [address] | | +--------+ + + + + [...] Rd | | | | | | [facility], [place] | | | | | | [address] | | | | | | [phone] | | | | | | | | +--------+ + + + + | 12/12/ | Appointment | Hematology & | B/C, Pod [address] | | | 2019 | | Oncology | [place], | | | | | | [place] [address] | | +--------+ + + + + as of this encounter Visit Diagnoses Not on filein this encounter"
--- OUTSIDE RECORDS SUMMARY | ~2018-11-06 | XMS | Encounter Summary ---
Demographics + + + | Address | [address] | | | [place] [address] | + + + | Home Phone [...] | | | | | [place] [address] | | + + + + + Care Team Providers + +------+ + | Care Teaching Artist Name | Role | Phone | + +------+ + | Piotr Plummer MD | PCP | | + +------+ + Encounter Details +--------+ + + + + | Date | Type | Department | Care Team | Description | +--------+ + + + + | 10/18/ | Cushion Assembler | Hematology/Medical | Toni Mccrary, | | | 2019 | | [facility] [place] | ,PhD [address] | | | | | for Health & Healing | [place], [place] | | | | | [address] | [address] | | | | | Mailcode: [place] | [phone] | | | | | for Health and | | | | | | Healing, [address] | | | | | | [place], [place] | | | | | | [address] | | | | | | [phone] | | | +--------+ + + + [...] Rd | | | | | | [place] [address] | | +--------+ + + + + | 11/14/ | Office | Hematology & | Taz Mcneal, | | | 2019 | Visit | Oncology | FABIANA-Cindy [address] | | | | | | [address] | | | | | | [facility] [place] | | | | | | [address] | | | | | | [phone] | | | | | | | | +--------+ + + + + | 11/14/ | Appointment | Hematology & | B/C, Pod [address] | | | 2019 | | Oncology | [place], | | | | | | [place] [address] | | +--------+ + + + + [...] [place] | | | | | | [address] | | | | | | [phone] | | | | | | | | +--------+ + + + + | 11/28/ | Appointment | Hematology & | B/C, [address] | | | 2019 | | Oncology | [place], | | | | | | [place] [address] | | +--------+ + + + + | 12/12/ | Clinical | | | | | 2019 | Support | | | | | | Staff | | | | +--------+ + + + + | 12/12/ | Office | Hematology & | Taz Mcneal, | | | 2018 | Visit | Oncology | PA-C [address] [facility] | | | | | | [address] | | | | | | [place], [place] | | | | | | [address] | | | | | | [phone] | | | | | | | | +--------+ + + + + | 12/12/ | Appointment | Hematology & | B/C, Pod [address] | | | 2019 | | Oncology | [place], | | | | | | [place] [address] | | +--------+ + + + + as of this encounter Visit Diagnoses Not on filein this encounter"
--- OUTSIDE RECORDS SUMMARY | ~2018-11-06 | XMS | Encounter Summary ---
Demographics + + + | Address | [address] | | | [place] [address] | + + + | Home Phone | | + + + | Preferred Language | Unknown | + + + | Marital Status | | + + + | Bahai Affiliation | NRP | + + + | Race | White | + + + | Ethnic Group | Not or | + + + Author + + + | Author | [facility] | + + + | Organization | [facility] | + + + | Address | Unknown | + + + | Phone | Unavailable | + + + Support + + + + + | Name | Relationship | Address | Phone | + + + + + | ELSA GOODE | ECON | [address] | | | | | [place] [address] | | + + + + + Care Team Providers + +------+ + | Care Washroom Attendant Name | Role | Phone | + +------+ + | Piotr Plummer MD | PCP | | + +------+ + Encounter Details +--------+ + + + + | Date | Type | Department | Care Team | Description | +--------+ + + + + | 08/10/ | Hospital | Diagnostic Imaging | Martin Carrero, | | | 2018 | Encounter | Services [address] | [address] | | | | | [facility] | [facility] | | | | | Road [place], [place] | [place], [place] | | | | | [address] | [address] | | | | | | [phone] | | | | | | | [...] [address] | | | | | | [place] [address] | | +--------+ + + + + | 11/14/ | Office | Hematology & | Taz Mcneal, | | | 2018 | Visit | Oncology | PA-C [address] | | | | | | [address] | | | | | | [place] | | | | | | [address] | | | | | | [phone] | | | | | | | | +--------+ + + + + | 11/14/ | Appointment | Hematology & | B/C, Pod [address] | | | 2019 | | Oncology | [place] | | | | | | [place] [address] | | +--------+ + + + + [...] Rd | | | | | | [place], [place] | | | | | | [address] | | | | | | [phone] | | | | | | | | +--------+ + + + + | 11/28/ | Appointment | Hematology & | B/C, Pod [address] | | | 2018 | | Oncology | [place], | | | | | | [place] [address] | | +--------+ + + + + [...] | | | | | | [facility], [place] | | | | | | [address] | | | | | | [phone] | | | | | | | | +--------+ + + + + | 12/12/ | Appointment | Hematology & | B/C, Pod [address] | | | 2018 | | Oncology | [place], | | | | | | [place] [address] | | +--------+ + + + + [...]
--- OUTSIDE RECORDS SUMMARY | ~2018-11-06 | XMS | Encounter Summary ---
Demographics + + + | Address | [address] | | | [place] [address] | + + + | Home Phone [...] | | | | | [place] [address] | | + + + + + Care Team Providers + +------+ + | Care Commercial Field Inspector Name | Role | Phone | [...] | | | | Mailcode: Center | [place], [place] | | | | | [facility] and | [address] | | | | | Healing, [address] | | | | | | [place], [place] | | | | | | [address] | | | | | | [phone] | | | +--------+ + + + [...] Isra | | | | | | [place] [address] | | +--------+ + + + + | 11/14/ | Office | Hematology & | Taz Mcneal, | | | 2018 | Visit | Oncology | PA-C [address] | | | | | | [address] | | | | | | [place] | | | | | | [address] | | | | | | [phone] | | | | | | | | +--------+ + + + + | 11/14/ | Appointment | Hematology & | B/C, Pod [address] | | | 2019 | | Oncology | [place] | | | | | | [place] [address] | | +--------+ + + + + [...] [place] | | | | | | [address] | | | | | | [phone] | | | | | | | | +--------+ + + + + | 11/28/ | Appointment | Hematology & | B/C, Pod [address] | | | 2018 | | Oncology | [place], | | | | | | [place] [address] | | +--------+ + + + + [...] [place] | | | | | | [address] | | | | | | [phone] | | | | | | | | +--------+ + + + + | 12/12/ | Appointment | Hematology & | B/C, [address] | | | 2019 | | Oncology | [place], | | | | | | [place] [address] | | +--------+ + + + + as of this encounter Visit Diagnoses Not on filein this encounter"
--- OUTSIDE RECORDS SUMMARY | ~2018-11-06 | XMS | Encounter Summary ---
Demographics + + + | Address | [address] | | | [place] [address] | + + + | Home Phone [...] | | | | | [place] [address] | | + + + + + Care Team Providers + +------+ + | Care Digital Hardware Design Engineer Name | Role | Phone | [...] | | | | Mailcode: Center | [place], [place] | | | | | [facility] and | [address] | | | | | [facility] 2 | [phone] | | | | | [place], [place] | | | | | | [address] | | | | | | [phone] | | | +--------+ + + + [...] [address]wal | | | | | | [place] [address] | | +--------+ + + + + | 11/14/ | Office | Hematology & | Taz Mcneal, | | | 2018 | Visit | Oncology | PA-C [address] | | | | | | [address] | | | | | | [place] | | | | | | [address] | | | | | | [phone] | | | | | | | | +--------+ + + + + | 11/14/ | Appointment | Hematology & | B/C, Pod [address] | | | 2019 | | Oncology | [place] | | | | | | [place] [address] | | +--------+ + + + + [...] [place] | | | | | | [address] | | | | | | [phone] | | | | | | | | +--------+ + + + + | 11/28/ | Appointment | Hematology & | B/C, [address] | | | 2018 | | Oncology | [place], | | | | | | [place] [address] | | +--------+ + + + + | 12/12/ | Clinical | | | | | 2019 | Support | | | | | | Staff | | | | +--------+ + + + + | 12/12/ | Office | Hematology & | Taz Mcneal, | | | 2018 | Visit | Oncology | FABIANA-C [address] [facility] | | | | | | [address] | | | | | | [place], [place] | | | | | | [address] | | | | | | [phone] | | | | | | | | +--------+ + + + + | 12/12/ | Appointment | Hematology & | B/C, [address] | | | 2019 | | Oncology | [place], | | | | | | [place] [address] | | +--------+ + + + + as of this encounter Visit Diagnoses Not on filein this encounter"
--- OUTSIDE RECORDS SUMMARY | ~2018-11-06 | XMS | Encounter Summary ---
Demographics + + + | Address | [address] | | | [place] [address] | + + + | Home Phone [...] | | | | | [place] [address] | | + + + + + Care Team Providers + +------+ + | Care Media Specialist Name | Role | Phone | [...] | | 2019 | | [facility] [place] | MICHELE,ACHPN [address] | | | | | for Health & Healing | [address] | | | | | [address] | [place], [place] | | | | | Mailcode: [place] | [address] | | | | | for Health and | [phone] | | | | | Healing, [address] [address] | | | | | | [place], [place] | | | | | | [address] | | | | | | [phone] | | | +--------+--------+ + + + [...] Dhaliwal | | | | | | [place] [address] | | +--------+ + + + + | 11/14/ | Office | Hematology & | Taz Mcneal, | | | 2018 | Visit | Oncology | PA-C [address] | | | | | | [address] | | | | | | [place], [place] | | | | | | [address] | | | | | | [phone] | | | | | | | | +--------+ + + + + | 11/14/ | Appointment | Hematology & | B/C, Pod [address] | | | 2019 | | Oncology | [place] | | | | | | [place] [address] | | +--------+ + + + + [...] Rd | | | | | | [place], [place] | | | | | | [address] | | | | | | [phone] | | | | | | | | +--------+ + + + + | 11/28/ | Appointment | Hematology & | B/C, Pod [address] | | | 2018 | | Oncology | [place], | | | | | | [place] [address] | | +--------+ + + + + [...] [place] | | | | | | [address] | | | | | | [phone] | | | | | | | | +--------+ + + + + | 12/12/ | Appointment | Hematology & | B/C, [address] | | | 2019 | | Oncology | [address] [place], | | | | | | [place] [address] | | +--------+ + + + + [...]
--- OUTSIDE RECORDS SUMMARY | ~2018-11-06 | XMS | Encounter Summary ---
Demographics + + + | Address | [address] | | | [place] [address] | + + + | Home Phone [...] + + | Author | [facility] | + + + | Organization | [facility] | + + + | Address | Unknown | + + + | Phone | Unavailable | + + + Support + + + + + | Name | Relationship | Address | Phone | + + + + + | ELSA GOODE | ECON | [address] | | | | | [place] [address] | | + + + + + Care Team Providers + +------+ + | Care Test Facility Engineer Name | Role | Phone | [...] | 2019 | on | [facility] [place] | ,PhD [address] | ([facility] [facility]) | | | | for Health & Healing | [place], [place] | | | | | [address] | [address] | | | | | Mailcode: [place] | [phone] | | | | | for Health and | | | | | | Healing, [address] | | | | | | [place], [place] | | | | | | [address] | | | | | | [phone] | | | +--------+ + + + [...] | | | | | [place] [address] | | +--------+ + + + + | 11/14/ | Office | Hematology & | Taz Mcneal, | | | 2018 | Visit | Oncology | PA-C [address] | | | | | | [address] | | | | | | [place] | | | | | | [address] | | | | | | [phone] | | | | | | | | +--------+ + + + + | 11/14/ | Appointment | Hematology & | B/C, Pod [address] | | | 2019 | | Oncology | [place] | | | | | | [place] [address] | | +--------+ + + + + | 11/28/ | Clinical | | | | | 2018 | Support | | | | | | Staff | | | | +--------+ + + + + | 11/28/ | Office | Hematology & | Taz Mcneal, | | | 2018 | Visit | Oncology | PA-Cindy [address] [facility] | | | | | | [address] | | | | | | [place] | | | | | | [address] | | | | | | [phone] | | | | | | | | +--------+ + + + + | 11/28/ | Appointment | Hematology & | B/C, [address] | | | 2019 | | Oncology | [place] | | | | | | [place] [address] | | +--------+ + + + + | 12/12/ | Clinical | | | | | 2018 | Support | | | | | | Staff | | | | +--------+ + + + + | 12/12/ | Office | Hematology & | Taz Mcneal, | | | 2018 | Visit | Oncology | OLYA [address] [facility] | | | | | | [address] | | | | | | [place] | | | | | | [address] | | | | | | [phone] | | | | | | | | +--------+ + + + + | 12/12/ | Appointment | Hematology & | B/C, Pod [address] | | | 2018 | | Oncology | [place], | | | | | | [place] [address] | | +--------+ + + + + as of this encounter Visit Diagnoses Not on filein this encounter"
--- OUTSIDE RECORDS SUMMARY | ~2018-11-06 | XMS | Encounter Summary ---
Demographics + + + | Address | [address] | | | [place] [address] | + + + | Home Phone [...] ELSA GOODE | ECON | [address] | | | | | [place] [address] | | + + + + + Care Team Providers + +------+ + | Care Care Administrative Tech Name | Role | Phone | [...] | 2019 | Encounter | [facility] [place] | OLYA [address] | | | | | for Health & Healing | [address] | | | | | [address] | [place], [place] | | | | | Mailcode: [place] | [address] | | | | | for Health and | [phone] | | | | | [facility] 2 | | | | | | [place], [place] | | | | | | [address] | | | | | | [phone] | | | +--------+ + + + [...] Rd | | | | | | [place] [address] | | +--------+ + + + + | 11/14/ | Office | Hematology & | Taz Mcneal, | | | 2018 | Visit | Oncology | OLYA [address] | | | | | | [address] | | | | | | [place] | | | | | | [address] | | | | | | [phone] | | | | | | | | +--------+ + + + + | 11/14/ | Appointment | Hematology & | B/C, Pod [address] | | | 2018 | | Oncology | [place], | | | | | | [place] [address] | | +--------+ + + + + [...] Rd | | | | | | [place], [place] | | | | | | [address] | | | | | | [phone] | | | | | | | | +--------+ + + + + | 11/28/ | Appointment | Hematology & | B/C, Pod [address] | | | 2018 | | Oncology | [place], | | | | | | [place] [address] | | +--------+ + + + + [...] Rd | | | | | | [place], [place] | | | | | | [address] | | | | | | [phone] | | | | | | | | +--------+ + + + + | 12/12/ | Appointment | Hematology & | B/C, [address] | | | 2019 | | Oncology | [place], | | | | | | [place] [address] | | +--------+ + + + + as of this encounter Visit Diagnoses Not on filein this encounter"
--- OUTSIDE RECORDS SUMMARY | ~2018-11-06 | XMS | Encounter Summary ---
Demographics + + + | Address | [address] | | | [place] [address] | + + + | Home Phone [...] | | | | | [place] [address] | | + + + + + Care Team Providers + +------+ + | Care Reimbursement Analyst Name | Role | Phone | [...] | | | | | | | [address] | | | | | | | [address] | | | | | | | [place] | | | | | | | [place], [place] | | | | | | | [address] | | | | | | | Phone: | | | | | | | [phone] | | | | | | | Fax: | | | | | | | [phone] | + +--------+ + + + + Encounter Details +--------+---------+ + + + | Date | Type | Department | Care Team | Description | +--------+---------+ + + + | 09/11/ | Office | [facility] | Nunu Nugent, | Subjective visual | | 2019 | Visit | [facility] | [address] | disturbance (Primary | | | | Jasiel Baker [address] | Dx); 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 Contact your edge gluer if you experience these symptoms. in this encounter Progress Notes Wilfrid Cummins MD - 09/11/2018 8:15 AM PSTFormatting of this note may be different from guillermina posadas original. [facility] Progress Note 09/11/2018 72 y.o. female [...] mouth twice daily as needed. ) Fish Oil-[place]-3 Fatty Acids Take 1 capsule by mouth [...] Hx Examination: See Ophthalmology Module Attestations: The donor center technician, under the supervision of the physician, [...] | | 2018 | | Oncology | [address] [facility] | | | | | | [place] [address] | | +--------+ + + + + | 11/14/ | Office | Hematology & | Taz Mcneal, | | | 2018 | Visit | Oncology | PA-Cindy [address] | | | | | | [address] | | | | | | [place], [place] | | | | | | [address] | | | | | | [phone] | | | | | | | | +--------+ + + + + | 11/14/ | Appointment | Hematology & | B/C, Pod [address] | | | 2018 | | Oncology | [place], | | | | | | [place] [address] | | +--------+ + + + + [...] Rd | | | | | | [facility], [place] | | | | | | [address] | | | | | | [phone] | | | | | | | | +--------+ + + + + | 11/28/ | Appointment | Hematology & | B/C, Pod [address] | | | 2019 | | Oncology | [place], | | | | | | [place] [address] | | +--------+ + + + + | 12/12/ | Clinical | | | | | 2018 | Support | | | | | | Staff | | | | +--------+ + + + + | 12/12/ | Office | Hematology & | Taz Mcneal, | | | 2018 | Visit | Oncology | OLYA [address] | | | | | | [address] | | | | | | [place], [place] | | | | | | [address] | | | | | | [phone] | | | | | | | | +--------+ + + + + | 12/12/ | Appointment | Hematology & | B/C, Pod [address] | | | 2018 | | Oncology | [place], | | | | | | [place] [address] | | +--------+ + + + + [...] Performed At | + + + | Nuclear Reactor Engineer | [facility] | | DocumentationRight EyeQuality: [...] [facility] | [address] | [place] [address] | | | INSTITUTE | Jaxon. | [...]
--- OUTSIDE RECORDS SUMMARY | ~2018-11-06 | XMS | Encounter Summary ---
Demographics + + + | Address | [address] | | | [place] [address] | + + + | Home Phone [...] | | | | | [place] [address] | | + + + + + Care Team Providers + +------+ + | Care Java Scala Developer Name | Role | Phone | + +------+ + | Piotr Plummer MD | PCP | | + +------+ + Encounter Details +--------+ + + + + | Date | Type | Department | Care Team | Description | +--------+ + + + + | 10/16/ | Spin Tank Tender | Hematology/Medical | Toni Mccrary, | | | 2019 | | [facility] [place] | ,PhD [address] | | | | | for Health & Healing | [place], [place] | | | | | [address] | [address] | | | | | Mailcode: [place] | [phone] | | | | | for Health and | | | | | | Healing, [address] | | | | | | [place], [place] | | | | | | [address] | | | | | | [phone] | | | +--------+ + + + [...] Rd | | | | | | [place] [address] | | +--------+ + + + + | 11/14/ | Office | Hematology & | Taz Mcneal, | | | 2019 | Visit | Oncology | FABIANA-Cindy [address] | | | | | | [address] | | | | | | [facility], [place] | | | | | | [address] | | | | | | [phone] | | | | | | | | +--------+ + + + + | 11/14/ | Appointment | Hematology & | B/C, Pod [address] | | | 2019 | | Oncology | [place], | | | | | | [place] [address] | | +--------+ + + + + [...] [place] | | | | | | [address] | | | | | | [phone] | | | | | | | | +--------+ + + + + | 11/28/ | Appointment | Hematology & | B/C, [address] | | | 2019 | | Oncology | [place], | | | | | | [place] [address] | | +--------+ + + + + | 12/12/ | Clinical | | | | | 2019 | Support | | | | | | Staff | | | | +--------+ + + + + | 12/12/ | Office | Hematology & | Taz Mcneal, | | | 2018 | Visit | Oncology | PA-C [address] [facility] | | | | | | [address] | | | | | | [place], [place] | | | | | | [address] | | | | | | [phone] | | | | | | | | +--------+ + + + + | 12/12/ | Appointment | Hematology & | B/C, Pod [address] | | | 2019 | | Oncology | [place], | | | | | | [place] [address] | | +--------+ + + + + as of this encounter Visit Diagnoses Not on filein this encounter"
--- OUTSIDE RECORDS SUMMARY | ~2018-11-06 | XMS | Encounter Summary ---
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, ambulatory and instruct ions have been [...] | 2019 | | Oncology | [address] [facility] [address] | | | | | | [place] [address] | | +--------+ + + + + | 11/14/ | Office | Hematology & | Taz Mcneal, | | | 2018 | Visit | Oncology | OLYA [address] | | | | | | [address] | | | | | | [place], [place] | | | | | | [address] | | | | | | [phone] | | | | | | | | +--------+ + + + + | 11/14/ | Appointment | Hematology & | B/C, Pod [address] | | | 2018 | | Oncology | [address] [place], | | | | | | [place] [address] | | +--------+ + + + + | 11/28/ | Clinical | | | | | 2018 | Support | | | | | | Staff | | | | +--------+ + + + + | 11/28/ | Office | Hematology & | Taz Mcneal, | | | 2018 | Visit | Oncology | OLYA [address] | | | | | | [address] | | | | | | [place], [place] | | | | | | [address] | | | | | | [phone] | | | | | | | | +--------+ + + + + | 11/28/ | Appointment | Hematology & | B/C, Pod [address] | | | 2019 | | Oncology | [place], | | | | | | [place] [address] | | +--------+ + + + + | 12/12/ | Clinical | | | | | 2018 | Support | | | | | | Staff | | | | +--------+ + + + + | 12/12/ | Office | Hematology & | Taz Mcneal, | | | 2018 | Visit | Oncology | PA-Cindy [address] | | | | | | [address] | | | | | | [place], [place] | | | | | | [address] | | | | | | [phone] | | | | | | | | +--------+ + + + + | 12/12/ | Appointment | Hematology & | B/C, Pod [address] | | | 2019 | | Oncology | [place], | | | | | | [place] [address] | | +--------+ + + + + + +--------+ + + | Name | Priori | Associated Diagnoses | Order Schedule | | | ty | | | + +--------+ + + | [facility] GI (19-), SERUM | Routin | Pancreatic | Expected: [...] 4.6 | 3.5 - 10.8 10*3/uL | [facility] [...] COMMENT, POC | atypical lym | | KARL - ADRIANA, | | | [...] POINT | [address] | [place] [address] | | | OF CARE TESTS | [...] - [facility], POINT | [address] [facility] | [place] [address] | | | OF CARE TESTS | [...]
--- OUTSIDE RECORDS SUMMARY | ~2018-11-06 | XMS | Encounter Summary ---
Demographics + + + | Address | [address] | | | [place] [address] | + + + | Home Phone [...] | | | | | [place] [address] | | + + + + + Care Team Providers + +------+ + | Care Armored Machine Operator Name | Role | Phone [...] [address] | | | | | [facility] | [address] | | | | | [place] | [place], [place] | | | | | (MNP/OLD N) | [address] | | | | | [place] [address] | [phone] | | | | | [phone] | | | +--------+ + + + [...] hours or on weekends and holiday Hospital Fans Clerk toll free [phone]. [phone] and have the GI doctor net solutions architect paged. The provider who performed your procedure: Dr. Nisha Prince Results of your ERCP: Biliary obstruction found, metal stent placed. Diet: Liquid diets today, advance to low fiber diet as tolerated. Follow up Appointments with: Dr. Olivrea and [facility] as planned. Your primary care [...] | 1 | 09/13/19 | | | gkqseb-wkhqrpra-qlnv | meals and 1 | capsule | [...] from the original. PRE PROCEDURE NOTE: MR# [id number] Subjective: Elaine Goode is a 73 y.o. [...] | | | | | [place] [address] | | +--------+ + + + + | 11/14/ | Office | Hematology & | Taz Mcneal, | | | 2018 | Visit | Oncology | PA-C [address] | | | | | | [address] | | | | | | [place] | | | | | | [address] | | | | | | [phone] | | | | | | | | +--------+ + + + + | 11/14/ | Appointment | Hematology & | B/C, Pod [address] | | | 2019 | | Oncology | [place] | | | | | | [place] [address] | | +--------+ + + + + | 11/28/ | Clinical | | | | | 2019 | Support | | | | | | Staff | | | | +--------+ + + + + | 11/28/ | Office | Hematology & | Taz Mcneal, | | | 2018 | Visit | Oncology | PA-C [address] [facility] | | | | | | [address] | | | | | | [place] | | | | | | [address] | | | | | | [phone] | | | | | | | | +--------+ + + + + | 11/28/ | Appointment | Hematology & | B/C, Pod [address] | | | 2019 | | Oncology | [place] | | | | | | [place] [address] | | +--------+ + + + + [...] Rd | | | | | | [place], [place] | | | | | | [address] | | | | | | [phone] | | | | | | | | +--------+ + + + + | 12/12/ | Appointment | Hematology & | B/C, Pod [address] | | | 2018 | | Oncology | [place] | | | | | | [place] [address] | | +--------+ + + + + [...] + | MRN: | [facility] | | [id number] Date: 10/23/2018Patient Name: Elaine Gonzalez #: | ENDOSCOPY | | [id number] of : 1945CSN: [id number] Type: | | | AmbulatoryRoom: GI 3Procedure: | | | ERCPIndications: elevated LFTs, hx of metastatic PDAC | | | with new simón dil and early | | | satietyProviders: NISHA PRINCE MD | | | (Doctor), ALICIA FELIPE RN | | | (Nurse), GENECREST ORTIZ (Fish Farm Laborer)Referring | | | MD: CARLOS ALAS JR, MDRequesting Provider: | | | Medicines: Indomethacin 100 mg [place], General | | | AnesthesiaComplications: No immediate [...] | procedure. The Olympus | | | [id number] Therapeutic Endoscope #[id number] | | | was introduced through the | | | mouth, and advanced to the | | | duodenum and used to inject contrast into the bile duct. | | | The Olympus TJF-160VF | | | Duodenoscope #[id number] was | | | introduced through the mouth, and advanced to the | | | duodenum and used to locate | | | the major papilla. The | | | Olympus PCF-[id number] Peds Colonooscope #[id number] was | | | introduced through the mouth, | | | and advanced to the duodenum | | | and used to locate the major papilla. The ERCP | | | was accomplished without | | | difficulty. The patient | | | tolerated the procedure well.Estimated Blood Loss: Estimated | | | blood loss: none.Findings: The asphalt paving foreman film was normal. The | | | [...] of Addenda: 0Renetta Initiated On: 10/23/2018 8:43 [facility] Letter | | | to: STEFFI [...] + + + + + | [facility] | [address] | [place] [address] | | | SERVICES, CORE | JOLIE [...]
--- OUTSIDE RECORDS SUMMARY | ~2018-11-06 | XMS | Encounter Summary ---
Demographics + + + | Address | [address] | | | [place] [address] | + + + | Home Phone [...] | | | | | [place] [address] | | + + + + + Care Team Providers + +------+ + | Care Laundry Machine Operator Name | Role | Phone [...] | 2019 | Encounter | [facility] at [place] | ANP,ACHPN [address] | | | | | for Health & Healing | [address] | | | | | [address] | [place], [place] | | | | | Mailcode: [place] | [address] | | | | | for Health and | [phone] | | | | | Healing, [address] [address] | | | | | | [place], [place] | | | | | | [address] | | | | | | [phone] | | | +--------+ + + + [...] [address] | | | | | | [place] [address] | | +--------+ + + + + | 11/14/ | Office | Hematology & | Taz Mcneal, | | | 2018 | Visit | Oncology | PA-C [address] | | | | | | [address] | | | | | | [place] | | | | | | [address] | | | | | | [phone] | | | | | | | | +--------+ + + + + | 11/14/ | Appointment | Hematology & | B/C, [address] | | | 2019 | | Oncology | [place] | | | | | | [place] [address] | | +--------+ + + + + [...] Rd | | | | | | [place] | | | | | | [address] | | | | | | [phone] | | | | | | | | +--------+ + + + + | 11/28/ | Appointment | Hematology & | B/C, [address] | | | 2018 | | Oncology | [place], | | | | | | [place] [address] | | +--------+ + + + + [...] Rd | | | | | | [facility], [place] | | | | | | [address] | | | | | | [phone] | | | | | | | | +--------+ + + + + | 12/12/ | Appointment | Hematology & | B/C, [address] | | | 2019 | | Oncology | [place] | | | | | | [place] [address] | | +--------+ + + + + as of this encounter Visit Diagnoses Not on filein this encounter"
--- OUTSIDE RECORDS SUMMARY | ~2018-11-06 | XMS | Encounter Summary ---
Demographics + + + | Address | [address] | | | [place] [address] | + + + | Home Phone [...] + + + | Author | [facility] | + + + | Organization | [facility] | + + + | Address | Unknown | + + + | Phone | Unavailable | + + + Support + + + + + | Name | Relationship | Address | Phone | + + + + + | ELSA GOODE | ECON | [address] | | | | | [place] [address] | | + + + + + Care Team Providers + +------+ + | Care Non Profit Financial Controller Name | Role | Phone | + [...] | Oncology at [facility] | [address] [place], | | | | | [address] | [place] [address] | | | | | Mailcode: Center | | | | | | for Health and | | | | | | [facility] | | | | | | [place], [place] | | | | | | [address] | | | | | | [phone] | | | +--------+ + + + [...] | 1 | 09/13/19 | | | hokbzf-mohasixf-kabm | meals and 1 | capsule | [...] ok at this time. Labs drawn by [place] rouge mixer, reviewed. Abraxane checked with 2 RNs per [...] Rd | | | | | | [place] [address] | | +--------+ + + + + | 11/14/ | Office | Hematology & | Taz Mcneal, | | | 2019 | Visit | Oncology | [place] [address] | | | | | | [address] | | | | | | [place], [place] | | | | | | [address] | | | | | | [phone] | | | | | | | | +--------+ + + + + | 11/14/ | Appointment | Hematology & | B/C, Pod [address] | | | 2019 | | Oncology | [place], | | | | | | [place] [address] | | +--------+ + + + + [...] [place] | | | | | | [address] | | | | | | [phone] | | | | | | | | +--------+ + + + + | 11/28/ | Appointment | Hematology & | B/C, Pod [address] | | | 2019 | | Oncology | [place], | | | | | | [place] [address] | | +--------+ + + + + | 12/12/ | Clinical | | | | | 2018 | Support | | | | | | Staff | | | | +--------+ + + + + | 12/12/ | Office | Hematology & | Taz Mcneal, | | | 2018 | Visit | Oncology | [place] [address] [facility] | | | | | | [address] | | | | | | [place] | | | | | | [address] | | | | | | [phone] | | | | | | | | +--------+ + + + + | 12/12/ | Appointment | Hematology & | B/C, Pod [address] | | | 2019 | | Oncology | [place] | | | | | | [place] [address] | | +--------+ + + + + [...]
--- OUTSIDE RECORDS SUMMARY | ~2018-11-06 | XMS | Encounter Summary ---
Demographics + + + | Address | [address] | | | [place] [address] | + + + | Home Phone [...] + + + | Author | [facility] | + + + | Organization | [facility] | + + + | Address | Unknown | + + + | Phone | Unavailable | + + + Support + + + + + | Name | Relationship | Address | Phone | + + + + + | ELSA GOODE | ECON | [address] | | | | | [place] [address] | | + + + + + Care Team Providers + +------+ + | Care Field Hauler Name | Role | Phone | + [...] + + | 10/03/ | Documentati | Hematology/Medical | [address] | Medical nutrition | | 2019 | on | Oncology at [facility] | [facility] | therapy | | | | [address] | [address] [place], [place] | | | | | Mailcode: [place] | [address] | | | | | for Health and | | | | | | Healing, Building [address] | | | | | | [place], [place] | | | | | | [address] | | | | | | [phone] | | | +--------+ + + + [...] [address] | | | | | | [place] [address] | | +--------+ + + + + | 11/14/ | Office | Hematology & | Taz Mcneal, | | | 2018 | Visit | Oncology | PA-C [address] | | | | | | [address] | | | | | | [place] | | | | | | [address] | | | | | | [phone] | | | | | | | | +--------+ + + + + | 11/14/ | Appointment | Hematology & | B/C, Pod [address] | | | 2019 | | Oncology | [place] | | | | | | [place] [address] | | +--------+ + + + + [...] [place] | | | | | | [address] | | | | | | [phone] | | | | | | | | +--------+ + + + + | 11/28/ | Appointment | Hematology & | B/C, [address] | | | 2018 | | Oncology | [place], | | | | | | [place] [address] | | +--------+ + + + + [...] [place] | | | | | | [address] | | | | | | [phone] | | | | | | | | +--------+ + + + + | 12/12/ | Appointment | Hematology & | B/C, Pod [address] | | | 2019 | | Oncology | [place], | | | | | | [place] [address] | | +--------+ + + + + as of this encounter Visit Diagnoses Not on filein this encounter"
--- OUTSIDE RECORDS SUMMARY | ~2018-11-06 | XMS | Encounter Summary ---
Demographics + + + | Address | [address] | | | [place] [address] | + + + | Home Phone | | + + + | Preferred Language | Unknown | + + + | Marital Status | | + + + | Congregational Affiliation | NRP | + + + [...] | | | | | [place] [address] | | + + + + + Care Team Providers + +------+ + | Care Grinding Wheel Dresser Name | Role | Phone | [...] [address] | | | | | | [place] [address] | | | | | | [phone] | | | +--------+ + + + [...] Rd | | | | | | [place] [address] | | +--------+ + + + + | 11/14/ | Office | Hematology & | Taz Mcneal, | | | 2019 | Visit | Oncology | [place] [address] | | | | | | [address] | | | | | | [place], [place] | | | | | | [address] | | | | | | [phone] | | | | | | | | +--------+ + + + + | 11/14/ | Appointment | Hematology & | B/C, Pod [address] | | | 2019 | | Oncology | [address] [place], | | | | | | [place] [address] | | +--------+ + + + + | 11/28/ | Clinical | | | | | 2018 | Support | | | | | | Staff | | | | +--------+ + + + + | 11/28/ | Office | Hematology & | Taz Mcneal, | | | 2018 | Visit | Oncology | PALjC [address] [facility] | | | | | | [address] | | | | | | [place], [place] | | | | | | [address] | | | | | | [phone] | | | | | | | | +--------+ + + + + | 11/28/ | Appointment | Hematology & | B/C, Pod [address] | | | 2019 | | Oncology | [place], | | | | | | [place] [address] | | +--------+ + + + + | 12/12/ | Clinical | | | | | 2018 | Support | | | | | | Staff | | | | +--------+ + + + + | 12/12/ | Office | Hematology & | Taz Mcneal, | | | 2018 | Visit | Oncology | PA-C [address] [facility] | | | | | | [address] | | | | | | [place] | | | | | | [address] | | | | | | [phone] | | | | | | | | +--------+ + + + + | 12/12/ | Appointment | Hematology & | B/C, Pod [address] | | | 2019 | | Oncology | [place] | | | | | | [place] [address] | | +--------+ + + + + as of this encounter Visit Diagnoses Not on filein this encounter"
--- OUTSIDE RECORDS SUMMARY | ~2018-11-06 | XMS | Encounter Summary ---
Demographics + + + | Address | [address] | | | [place] [address] | + + + | Home Phone [...] | | | | | [place] [address] | | + + + + + Care Team Providers + +------+ + | Care Secretary To Board Of Commissioners Name | Role | Phone | + [...] | 2019 | on | Oncology at [place] | | | | | | for [facility] & Healing | | | | | | [address] | | | | | | Mailcode: [place] | | | | | | for Health and | | | | | | Healing, [address] | | | | | | [place], [place] | | | | | | [address] | | | | | | [phone] | | | +--------+ + + + [...] | | | | | [place] [address] | | +--------+ + + + + | 11/14/ | Office | Hematology & | Taz Mcneal, | | | 2018 | Visit | Oncology | PA-C [address] | | | | | | [address] | | | | | | [place] | | | | | | [address] | | | | | | [phone] | | | | | | | | +--------+ + + + + | 11/14/ | Appointment | Hematology & | B/C, Pod [address] | | | 2019 | | Oncology | [place] | | | | | | [place] [address] | | +--------+ + + + + [...] Rd | | | | | | [place], [place] | | | | | | [address] | | | | | | [phone] | | | | | | | | +--------+ + + + + | 11/28/ | Appointment | Hematology & | B/C, Pod [address] | | 2018 | | Oncology | [place], | | | | | | [place] [address] | | +--------+ + + + + [...] Rd | | | | | | [facility], [place] | | | | | | [address] | | | | | | [phone] | | | | | | | | +--------+ + + + + | 12/12/ | Appointment | Hematology & | B/C, Pod [address] | | | 2019 | | Oncology | [place], | | | | | | [place] [address] | | +--------+ + + + + as of this encounter Visit Diagnoses Not on filein this encounter"
--- OUTSIDE RECORDS SUMMARY | ~2018-11-06 | XMS | Encounter Summary ---
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) | | | | for Health & Healing | [place], [place] | (Primary Dx); Liver | | | | [address] | [address] | metastases (HCC) | | | | Mailcode: [place] | [phone] | | | | | for Health and | | | | | | [facility] [place] [address] | | | | | | [place], [place] | | | | | | [address] | | | | | | [phone] | | | +--------+ + + + [...] | | | | | | [place] [address] | | +--------+ + + + + | 11/14/ | Office | Hematology & | Taz Mcneal, | | | 2019 | Visit | Oncology | PA-C [address] | | | | | | [address] | | | | | | [place], [place] | | | | | | [address] | | | | | | [phone] | | | | | | | | +--------+ + + + + | 11/14/ | Appointment | Hematology & | B/C, Pod [address] | | | 2019 | | Oncology | [place] | | | | | | [place] [address] | | +--------+ + + + + [...] Rd | | | | | | [place], [place] | | | | | | [address] | | | | | | [phone] | | | | | | | | +--------+ + + + + | 11/28/ | Appointment | Hematology & | B/C, Pod [address] | | | 2018 | | Oncology | [place], | | | | | | [place] [address] | | +--------+ + + + + [...] Rd | | | | | | [facility] [place] | | | | | | [address] | | | | | | [phone] | | | | | | | | +--------+ + + + + | 12/12/ | Appointment | Hematology & | B/C, Pod [address] | | | 2018 | | Oncology | [place], | | | | | | [place] [address] | | +--------+ + + + + [...] report as now presented. Final signature: Joselito Davenport | 08/22/2018 2:59 PM Preliminary: Felix Davis MD | | | Dictation initiated: Felix Davis MD 08/22/2018 2:57 PM | | + + + + + | Procedure Note | + + | Service Account, [facility] Res In Interface - 08/22/2018 3:01 PM [...]
--- OUTSIDE RECORDS SUMMARY | ~2018-11-06 | XMS | Encounter Summary ---
Demographics + + + | Address | [address] | | | [place] [address] | + + + | Home Phone | | + + + | Preferred Language | Unknown | + + + | Marital Status | | + + + | Sabianist Affiliation | NRP | + + + [...] | | | | | [place] [address] | | + + + + + Care Team Providers + +------+ + | Care Marketing Database Coordinator Name | Role | Phone | [...] | | | | adenocarcino | ,PhD 3683 | | | | | | ma (HCC) | [address] | | | | | | Liver | [place], | | | | | | metastases | [place] | | | | | | (HCC) | [address] | | | | | | Procedures | Phone: | | | | | | CT CHEST, | [phone] | | | | | | ABDOMEN AND | Fax: | | | | | | PELVIS W IV | [phone] | | | | | | CONTRAST [...] | | | | adenocarcino | ,PhD 6613 | | | | | | ma (HCC) | [address] | | | | | | Liver | [place], | | | | | | metastases | [place] | | | | | | (HCC) | [address] | | | | | | Procedures | Phone: | | | | | | CT CHEST, | [phone] | | | | | | ABDOMEN AND | Fax: | | | | | | PELVIS W IV | [phone] | | | | | | CONTRAST [...] | | | | adenocarcino | ,PhD 4763 | | | | | | makeda ([facility]) | [address] | | | | | | Liver | [place], | | | | | | metastases | [place] | | | | | | ([facility]) | [address] | | | | | | Procedures | Phone: | | | | | | CT CHEST, | [phone] | | | | | | ABDOMEN AND | Fax: | | | | | | PELVIS W IV | [phone] | | | | | | CONTRAST | | | + +--------+ + + + + Encounter Details +--------+ + + + + | Date | Type | Department | Care Team | Description | +--------+ + + + + | 10/17/ | Hospital | Radiology/Imaging | Toni Mccrary, | | | 2019 | Encounter | Lab at [facility] [address] | ,PhD [address] | | | | | [address] | [place], [place] | | | | | Mailcode: [facility] | [address] | | | | | [facility] | [phone] | | | | | and [address] | | | | | | [place], [place] | | | | | | [address] | | | | | | [phone] | | | +--------+ + + + [...] | 1 | 09/13/19 | | | jfhchd-kuadaopq-mtlh | meals and 1 | capsule | [...] [address] | | | | | | [place] [address] | | +--------+ + + + + | 11/14/ | Office | Hematology & | Taz Mcneal, | | | 2019 | Visit | Oncology | PA-C [address] | | | | | | [address] | | | | | | [place], [place] | | | | | | [address] | | | | | | [phone] | | | | | | | | +--------+ + + + + | 11/14/ | Appointment | Hematology & | B/C, Pod [address] | | | 2019 | | Oncology | [place], | | | | | | [place] [address] | | +--------+ + + + + [...] Rd | | | | | | [place], [place] | | | | | | [address] | | | | | | [phone] | | | | | | | | +--------+ + + + + | 11/28/ | Appointment | Hematology & | B/C, Pod [address] | | | 2018 | | Oncology | [place], | | | | | | [place] [address] | | +--------+ + + + + [...] Rd | | | | | | [place], [place] | | | | | | [address] | | | | | | [phone] | | | | | | | | +--------+ + + + + | 12/12/ | Appointment | Hematology & | B/C, Pod [address] | | | 2018 | | Oncology | [place], | | | | | | [place] [address] | | +--------+ + + + + [...]
--- OUTSIDE RECORDS SUMMARY | ~2018-11-06 | XMS | Encounter Summary ---
Demographics + + + | Address | [address] | | | [place] [address] | + + + | Home Phone [...] | | | | | [place] [address] | | + + + + + Care Team Providers + +------+ + | Care Head Cashier Name | Role | Phone | + [...] | | | [address] | [facility] | | | | | [facility] | [place], [place] | | | | | [place] [address] | [address] | | | | | [phone] | [phone] | | | | | | | [...] Goode, Thank you for coming to the [facility] Em ergency Department. It was a pleasure [...] cannot be sent through Care Everywhere.Cancer: Diarrhea (Greek) in this encounter Medications at Time of [...] | 1 | 09/13/19 | | | pyeixv-dzghucne-bkbo | meals and 1 | capsule | [...] | | | | | [place] [address] | | +--------+ + + + + | 11/14/ | Office | Hematology & | Taz Mcneal, | | | 2018 | Visit | Oncology | PA-C [address] | | | | | | [address] | | | | | | [place] | | | | | | [address] | | | | | | [phone] | | | | | | | | +--------+ + + + + | 11/14/ | Appointment | Hematology & | B/C, Pod [address] | | | 2019 | | Oncology | [place] | | | | | | [place] [address] | | +--------+ + + + + | 11/28/ | Clinical | | | | | 2018 | Support | | | | | | Staff | | | | +--------+ + + + + | 11/28/ | Office | Hematology & | Taz Mcneal, | | | 2018 | Visit | Oncology | PA-C [address] | | | | | | [address] | | | | | | [place] | | | | | | [address] | | | | | | [phone] | | | | | | | | +--------+ + + + + | 11/28/ | Appointment | Hematology & | B/C, Pod [address] | | | 2019 | | Oncology | [place] | | | | | | [place] [address] | | +--------+ + + + + [...] Rd | | | | | | [place] | | | | | | [address] | | | | | | [phone] | | | | | | | | +--------+ + + + + | 12/12/ | Appointment | Hematology & | B/C, Pod [address] | | | 2018 | | Oncology | [place], | | | | | | [place] [address] | | +--------+ + + [...] C.DIFFICILE TOXIN | Negative | Negative | [facility] | | | | | SERVICES, CORE | + + + + + + + | Specimen | + + | Stool - Rectum | + + + + + + + | Performing | Address | City/State/Zipcode | Phone Number | | Organization | | | | + + + + + | [facility] | [address] | [place] [address] | | | SERVICES, CORE | [address] [...] | + + + + + | [facility] | [address] | [place] [address] | | | SERVICES, CORE | [address]ARK [...] 41.1 | 35.1 - 46.3 fL | [facility] | | | | | SERVICES, [...] 1.5 | 1.0 - 3.0 % | [facility] | | | | | SERVICES, [...] | 0.00 - 0.10 K/cu mm | [facility] | | | | | SERVICES, [...] + + | [facility] | [address] | [place] [address] | | | SERVICES, ELISHA | [address] | | | + + + + + BLOOD BANK HOLD TUBE - DON T PROCESS (10/01/2018 5:36 PM) + + + + + | Component | Value | Ref Range | Performed At | + + + + + | SPECIMEN COLLECTED, | Sample received with | | [facility] | | HELD | adeq label/volume [...] | + + + + + | [facility] | [address] | [place] [address] | | | SERVICES, | [address] | | | | TRANSFUSION MEDICINE | | | | + + + + + LIPASE, PLASMA (10/01/2018 5:36 PM) + + + + + | Component | Value | Ref Range | Performed At | + + + + + | LIPASE (LAB) | 1,676 (H) | 152 - 353 U/L | [facility] | | | | | SERVICES, CORE | + + + + + + + | Specimen | + + | Blood - Blood | + + + + + + + | Performing | Address | City/State/Zipcode | Phone Number | | Organization | | | | + + + + + | [facility] | [address] | [place] [address] | | | SERVICES, CORE | PARK [...] >60 mL/min | [facility] | | [place] | | | VALERI, CORE | + + + + + | EGFR NON | >60 | >60 mL/min | [facility] | | -[place]DIAN | | | SERVICES, CORE | + [...] 7.0 | 6.4 - 8.2 g/dL | [facility] | | PLASMA (LAB) | | [...] the MDRD equation recommended by the | [facility] | | National Kidney Disease Education Program. Estimated GFR | LABORATORY | | Interpretive Information: <60 mL/min/1.73 sq | SERVICES, [facility] [place] | | m Chronic Kidney Disease <15 [...] | + + + + + | [facility] | [address] | [place] [address] | | | SERVICES, CORE | [address] | | | + + + + + ED INFORMATION EXCHANGE (10/01/2018 4:51 PM) + + + | Narrative | Performed At | + + + | [id number] [id number] Criteria Met PDMP | [facility] | | [...] (12 | | | mo.) Facility Visits [facility] 1 Total | | | 1 Note: Visits indicate total known visits. Recent | | | Emergency Department Visit Summary Date Facility City State Type | | | Diagnoses or Chief Complaint Oct 01, 2018 [facility] | | | [place] Emergency 10,800. Diarrhea | | | Recent Inpatient Visit Summary No recorded inpatient visits. | | | Care Providers There are no care providers on record at this time. | | | [employer] This patient has registered at the [facility] | | | [facility] Emergency Department For more information | | | visit: | | | [email or web address] | | | [email or web address] The above information [...] for additional information. | | | 2019 [employer] - [place], [place] - | | | [email or web address] | | + + + + + | Procedure Note | + + | Service Account, Rtf Results Inbound - 10/01/2018 4:52 PM PDT Formatting of this | | note may be different from the original.[id number] [id number] Met | | PDMPSecurity and SafetyNo recent [...] 0 E.D. Visit Count (12 mo.)Facility Visits [facility] | [facility] 1 Total 1 Note: Visits indicate total known visits. Recent | | Emergency Department Visit SummaryDate Facility City State Type Diagnoses or Chief | | Complaint Oct 01, 2018 [facility] [place] Emergency | | 10,800. Diarrhea Recent Inpatient Visit SummaryNo recorded inpatient visits. Care | | ProvidersThere are no care providers on record at this time. Collective PortalThis | | patient has registered at the [facility] Emergency Department | | For more information visit: | | [email or web address] The above | | information is provided for the sole purpose of patient treatment. Use of this | | information beyond the terms of Data Sharing Memorandum of Understanding and License | | Agreement is prohibited. In certain cases not all visits may be represented. Consult the | | aforementioned facilities for additional information. 2019 [employer] | | [employer] [facility] [place], [place] - [email or web address] | |Rx Summary | |Metric Count | |CS II-V Rx 0 | |CS-II Rx 0 | |Quantity Dispensed 320 | |Unique Prescribers 8 | |Unique Pharmacies 5 | |Benzos 0 | |Opioids 0 | |Long Acting Opioids 0 | | | | | | | |E.D. Visit Count (12 mo.) | |Facility Visits | |[facility] 1 | |Total 1 | |Note: Visits indicate total known visits. | | | |Recent Emergency Department Visit Summary | |Date Facility City State Type Diagnoses or Chief Complaint | |Oct 01, 2018 [facility] [place] Emergency | | 10,800. Diarrhea | | | | | | | |Recent Inpatient Visit Summary | |No recorded inpatient visits. | | | |Care Providers | |There are no care providers on record at this time. | |[employer] Portal | |This patient has registered at the [facility] Emergency Departmen t | |For more information visit: [email or web address] | |The above information is provided for the sole purpose of patient treatment. Use of this in formation beyond the terms of Data Sharing Memorandum of Understanding and License Agreement is prohibited. In | |certain cases not all visits may be represented. Consult the aforementioned facilities for additional information. | |2019 [employer] - [place], [place] - | + + + + + + + | Performing | Address | City/State/Zipcode | Phone Number | | Organization | | | | + + + + + | [facility] | [address], | [place], [place] | [phone] | | [employer] | [address] | [address] | | + + + + + [...]
--- OUTSIDE RECORDS SUMMARY | ~2018-11-06 | XMS | Encounter Summary ---
Demographics + + + | Address | [address] | | | [place] [address] | + + + | Home Phone [...] | | | | | [place] [address] | | + + + + + Care Team Providers + +------+ + | Care Dental Surgery Doctor Name | Role | Phone | + [...] | | 2019 | | [facility] at [place] | MICHELE,ACHPN [address] | (Mayra) | | | | for Health & Healing | [address] | | | | | [address] | [place], [place] | | | | | Mailcode: [place] | [address] | | | | | for Health and | [phone] | | | | | Healing, [address] [address] | | | | | | [place], [place] | | | | | | [address] | | | | | | [phone] | | | +--------+ + + + [...] [address] | | | | | | [place] [address] | | +--------+ + + + + | 11/14/ | Office | Hematology & | Taz Mcneal, | | | 2018 | Visit | Oncology | PA-C [address] [facility] | | | | | | [address] | | | | | | [place] | | | | | | [address] | | | | | | [phone] | | | | | | | | +--------+ + + + + | 11/14/ | Appointment | Hematology & | B/C, Pod [address] | | | 2019 | | Oncology | [place] | | | | | | [place] [address] | | +--------+ + + + + [...] [place] | | | | | | [address] | | | | | | [phone] | | | | | | | | +--------+ + + + + | 11/28/ | Appointment | Hematology & | B/C, [address] | | | 2018 | | Oncology | [place], | | | | | | [place] [address] | | +--------+ + + + + [...] Rd | | | | | | [place], [place] | | | | | | [address] | | | | | | [phone] | | | | | | | | +--------+ + + + + | 12/12/ | Appointment | Hematology & | B/C, [address] | | | 2019 | | Oncology | [place], | | | | | | [place] [address] | | +--------+ + + + + [...]
--- OUTSIDE RECORDS SUMMARY | ~2018-11-06 | XMS | Encounter Summary ---
Demographics + + + | Address | [address] | | | [place] [address] | + + + | Home Phone [...] | | | | | [place] [address] | | + + + + + Care Team Providers + +------+ + | Care Inspector Filters Name | Role | Phone | + [...] Robin | | | | | [address] [facility] | [facility] | | | | | Road [place], [place] | [employer], [place] | | | | | [address] | [address] | | | | | | [phone] | | | | | | | [...] [address] | | | | | | [place] [address] | | +--------+ + + + + | 11/14/ | Office | Hematology & | Taz Mcneal, | | | 2018 | Visit | Oncology | PA-C [address] | | | | | | [address] | | | | | | [place] | | | | | | [address] | | | | | | [phone] | | | | | | | | +--------+ + + + + | 11/14/ | Appointment | Hematology & | B/C, [address] | | | 2019 | | Oncology | [place] | | | | | | [place] [address] | | +--------+ + + + + [...] Rd | | | | | | [place], [place] | | | | | | [address] | | | | | | [phone] | | | | | | | | +--------+ + + + + | 11/28/ | Appointment | Hematology & | B/C, [address] | | | 2018 | | Oncology | [place], | | | | | | [place] [address] | | +--------+ + + + + [...] Rd | | | | | | [facility], [place] | | | | | | [address] | | | | | | [phone] | | | | | | | | +--------+ + + + + | 12/12/ | Appointment | Hematology & | B/C, [address] | | | 2018 | | Oncology | [place], | | | | | | [place] [address] | | +--------+ + + + + [...]
--- OUTSIDE RECORDS SUMMARY | ~2018-11-06 | XMS | Encounter Summary ---
Demographics + + + | Address | [address] | | | [place] [address] | + + + | Home Phone [...] | | | | | [place] [address] | | + + + + + Care Team Providers + +------+ + | Care Network Control Supervisor Name | Role | Phone | [...] | | | Zach Farley | [place], [place] | | | | | Mailcode: CH7 | [address] | | | | | [facility] | [phone] | | | | | and [facility], 7th | | | | | | Floor [place], [place] | | | | | | [address] | | | | | | [phone] | | | +--------+ + + + [...] Rd | | | | | | [place] [address] | | +--------+ + + + + | 11/14/ | Office | Hematology & | Taz Mcneal, | | | 2019 | Visit | Oncology | FABIANA-C [address] | | | | | | [address] | | | | | | [place], [place] | | | | | | [address] | | | | | | [phone] | | | | | | | | +--------+ + + + + | 11/14/ | Appointment | Hematology & | B/C, [address] | | | 2018 | | Oncology | [place], | | | | | | [place] [address] | | +--------+ + + + + [...] [place] | | | | | | [address] | | | | | | [phone] | | | | | | | | +--------+ + + + + | 11/28/ | Appointment | Hematology & | B/C, [address] | | | 2019 | | Oncology | [place], | | | | | | [place] [address] | | +--------+ + + + + [...] Rd | | | | | | [place] | | | | | | [address] | | | | | | [phone] | | | | | | | | +--------+ + + + + | 12/12/ | Appointment | Hematology & | B/C, [address] | | | 2019 | | Oncology | [place], | | | | | | [place] [address] | | +--------+ + + + + as of this encounter Visit Diagnoses Not on filein this encounter"
--- OUTSIDE RECORDS SUMMARY | ~2018-11-06 | XMS | Encounter Summary ---
Demographics + + + | Address | [address] | | | [place] [address] | + + + | Home Phone [...] | | | | | [place] [address] | | + + + + + Care Team Providers + +------+ + | Care Overlay Operator Name | Role | Phone | + +------+ + | Poitr Plummer MD | PCP | | + +------+ + Encounter Details +--------+ + + + + | Date | Type | Department | Care Team | Description | +--------+ + + + + | 08/31/ | MyChart | Hematology/Medical | Toni Mccrary, | Meds Mix | | 2019 | Encounter | [facility] [place] | ,PhD [address] | | | | | [facility] | [place], [place] | | | | | [address] | [address] | | | | | Mailcode: [place] | [phone] | | | | | for [facility] and | | | | | | Healing, [address] | | | | | | [place], [place] | | | | | | [address] | | | | | | [phone] | | | +--------+ + + + [...] Rd | | | | | | [place] [address] | | +--------+ + + + + | 11/14/ | Office | Hematology & | Taz Mcneal, | | | 2019 | Visit | Oncology | FABIANA-Cindy [address] | | | | | | [address] | | | | | | [facility] [place] | | | | | | [address] | | | | | | [phone] | | | | | | | | +--------+ + + + + | 11/14/ | Appointment | Hematology & | B/C, Pod [address] | | | 2019 | | Oncology | [place], | | | | | | [place] [address] | | +--------+ + + + + [...] [place] | | | | | | [address] | | | | | | [phone] | | | | | | | | +--------+ + + + + | 11/28/ | Appointment | Hematology & | B/C, [address] | | | 2018 | | Oncology | [place], | | | | | | [place] [address] | | +--------+ + + + + | 12/12/ | Clinical | | | | | 2019 | Support | | | | | | Staff | | | | +--------+ + + + + | 12/12/ | Office | Hematology & | Taz Mcneal, | | | 2018 | Visit | Oncology | PA-C [address] [facility] | | | | | | [address] | | | | | | [place], [place] | | | | | | [address] | | | | | | [phone] | | | | | | | | +--------+ + + + + | 12/12/ | Appointment | Hematology & | B/C, [address] | | | 2019 | | Oncology | [place], | | | | | | [place] [address] | | +--------+ + + + + as of this encounter Visit Diagnoses Not on filein this encounter"
--- OUTSIDE RECORDS SUMMARY | ~2018-11-06 | XMS | Encounter Summary ---
Demographics + + + | Address | [address] | | | [place] [address] | + + + | Home Phone [...] | | | | | [place] [address] | | + + + + + Care Team Providers + +------+ + | Care Television Engineering Teacher Name | Role | Phone | [...] | | | | Mailcode: Center | [place], [place] | | | | | [facility] and | [address] | | | | | Healing, [facility] | | | | | | [place], [place] | | | | | | [address] | | | | | | [phone] | | | +--------+ + + + [...] | | | | | [place] [address] | | +--------+ + + + + | 11/14/ | Office | Hematology & | Taz Mcneal, | | | 2018 | Visit | Oncology | PA-C [address] | | | | | | [address] | | | | | | [place] | | | | | | [address] | | | | | | [phone] | | | | | | | | +--------+ + + + + | 11/14/ | Appointment | Hematology & | B/C, [address] | | | 2019 | | Oncology | [place] | | | | | | [place] [address] | | +--------+ + + + + [...] Rd | | | | | | [place], [place] | | | | | | [address] | | | | | | [phone] | | | | | | | | +--------+ + + + + | 11/28/ | Appointment | Hematology & | B/C, [address] | | | 2019 | | Oncology | [place], | | | | | | [place] [address] | | +--------+ + + + [...] [place] | | | | | | [address] | | | | | | [phone] | | | | | | | | +--------+ + + + + | 12/12/ | Appointment | Hematology & | B/C, [address] | | | 2019 | | Oncology | [place], | | | | | | [place] [address] | | +--------+ + + + + as of this encounter Visit Diagnoses Not on filein this encounter"
--- OUTSIDE RECORDS SUMMARY | ~2018-11-06 | XMS | Encounter Summary ---
Demographics + + + | Address | [address] | | | [place] [address] | + + + | Home Phone | | + + + | Preferred Language | Unknown | + + + | Marital Status | | + + + | Latter Day Affiliation | NRP | + + + [...] [address] | | | | | [place] [address] | | + + + + + Care Team Providers + +------+ + | Care Cutlery Grinder Name | Role | Phone | + [...] + + | 08/16/ | Telephone | Digestive Health | Martin Carrero, | Pain | | 2019 | | Center at [facility] [address] | [address] | | | | | [address] [place] | [facility] | | | | | Mailcode: Center | [place], [place] | | | | | [facility] and | [address] | | | | | [facility] | [phone] | | | | | [place], [place] | | | | | | [address] | | | | | | [phone] | | | +--------+ + + + [...] [address] | | | | | | [place] [address] | | +--------+ + + + + | 11/14/ | Office | Hematology & | Taz Mcneal, | | | 2019 | Visit | Oncology | PA-C [address] | | | | | | [address] | | | | | | [place] | | | | | | [address] | | | | | | [phone] | | | | | | | | +--------+ + + + + | 11/14/ | Appointment | Hematology & | B/C, Pod [address] | | | 2019 | | Oncology | [place] | | | | | | [place] [address] | | +--------+ + + + + [...] Rd | | | | | | [place], [place] | | | | | | [address] | | | | | | [phone] | | | | | | | | +--------+ + + + + | 11/28/ | Appointment | Hematology & | B/C, [address] | | | 2018 | | Oncology | [place], | | | | | | [place] [address] | | +--------+ + + + + [...] Rd | | | | | | [facility], [place] | | | | | | [address] | | | | | | [phone] | | | | | | | | +--------+ + + + + | 12/12/ | Appointment | Hematology & | B/C, [address] | | | 2019 | | Oncology | [place], | | | | | | [place] [address] | | +--------+ + + + + as of this encounter Visit Diagnoses Not on filein this encounter"
--- OUTSIDE RECORDS SUMMARY | ~2018-11-06 | XMS | Clinical Summary ---
Demographics + + + | Address | [address] | | | [place] [address] | + + + | Home Phone [...] | | | | | [place] [address] | | + + + + + Care Team Providers + +------+ + | Care Billet Grinder Name | Role | Phone | + +------+ + | Steffi Barraza MD | PP | | + +------+ + Source Comments KARL is fully live on both [facility] Ambulatory and [facility] InPatient.[facility] Allergies No Known Allergies Current Medications [...] | 02/2 | | Activ | | ngmlaw-gkswzcck-dxdm | meals and 1 | capsule | [...] + + + + + | Overview: [place] following CE IOL 06/19/17 By history, | [...] + + + + | 10/30/ | Post Anesthesia Room Nurse | | Toni Olivera, | | | [...] + + + + | 10/19/ | Post Anesthesia Room Nurse | | Haresh Alas W | Bile duct | | 2019 | | | MD Lynda | obstruction (Primary | | | | | | Dx) | +--------+ + + + + | 10/18/ | Post Anesthesia Room Nurse | | Toni Olivera, | | | [...] + + + + | 10/16/ | Post Anesthesia Room Nurse | | Toni Olivera, | | | 2018 | | | PhD BARB | | +--------+ + + + + | 10/16/ | Post Anesthesia Room Nurse | | Toni Olivera, | Pancreatic | [...] + + + | 10/02/ | Post Anesthesia Room Nurse | | Toni Olivera, | | | 2018 | | | PhD BARB | | +--------+ + + + + | 10/02/ | Post Anesthesia Room Nurse | | Toni Olivera, | | | [...] Request | | 2019 | | | CIERRA BAUTISTA | | +--------+ [...] + + + + | 09/25/ | Post Anesthesia Room Nurse | | Toni Olivera, | | | [...] + + + + | 09/18/ | Post Anesthesia Room Nurse | | Toni Olivera, | | | [...] + + + + | 09/03/ | Post Anesthesia Room Nurse | | Toni Olivera, | | | [...] + + + + | 08/28/ | Post Anesthesia Room Nurse | | Toni Olivera, | | | [...] + + + + | 08/22/ | Post Anesthesia Room Nurse | | Toni Olivera, | Pancreatic | [...] + + + + | 08/22/ | Post Anesthesia Room Nurse | | Martin Carrero, | Pancreatic | [...] + + + + | 08/20/ | Post Anesthesia Room Nurse | | Toni Olivera, | | | [...] + + + + | 08/15/ | Post Anesthesia Room Nurse | | Toni Olivera, | | | 2018 | | | PhD BARB | | +--------+ + + + + | 08/15/ | Post Anesthesia Room Nurse | | Toni Olivera, | | | [...] + + + + | 08/13/ | Post Anesthesia Room Nurse | | Luzmaria Lawrence MD | | [...] + + + + | 08/09/ | Post Anesthesia Room Nurse | | Toni Olivera, | Pancreatic | | 2018 | | | PhD BARB | adenocarcinoma (HCC) | | | | | | (Primary Dx) | +--------+ + + + + 08/09/ | Post Anesthesia Room Nurse | | Toni Olivera, | Pancreatic | [...] Corey | | | | | | [place] [address] | | +--------+ + + + + | 11/14/ | Office | | Taz Mcneal, | | | 2018 | Visit | | PA-C [address] | | | | | | [address] | | | | | | [place], [place] | | | | | | [address] | | | | | | [phone] | | | | | | | | +--------+ + + + + | 11/14/ | Appointment | | B/C, Pod [address] | | | 2018 | | | [place], | | | | | | [place] [address] | | +--------+ + + + + [...] | | | | | [place], [place] | | | | | | [address] | | | | | | [phone] | | | | | | | | +--------+ + + + + | 11/28/ | Appointment | | B/C, Pod [address] | | | 2018 | | | [place], | | | | | | [place] [address] | | +--------+ + + + + [...] | | | | | [place], [place] | | | | | | [address] | | | | | | [phone] | | | | | | | | +--------+ + + + + | 12/12/ | Appointment | | B/C, Pod [address] | | | 2019 | | | [place], | | | | | | [place] [address] | | +--------+ + + + + [...] - | | | | | | /[id number] | | [id number]: Qty: 1 on | | | | | | 64 | | 08/10/2018 by Alise, | | | | | | | [...] [facility] | [address] | [place] [address] | | | ELISHA TRAMMELL | PARK [...] [facility] | [address] | [place] [address] | | | [facility] | | [facility] | | | | + + + + + [facility] - COMPLETE METABOLIC SET (10/31/2018 12:03 PM) [...] >60 mL/min | [facility] | | [facility] | | | SERVICES, | | | | | [facility] | | | | [facility] + | | | | | HEALING | + + + + + | EGFR NON | >60 | >60 mL/min | [facility] | | -[facility] | | | SERVICES, | | | [...] 6.8 | 6.4 - 8.2 g/dL | [facility] | | PLASMA (LAB) | | [...] | + + + + + | [facility] | [address] | [place] [address] | | | [facility] | | | | | [facility] + HEALING | | | | [...] + | MRN: | [facility] | | [id number] Date: 10/23/2018Patient Name: Philip oGnzalez #: | ENDOSCOPY | | [id number] of : 1945CSN: [id number] Type: | | | AmbulatoryRoom: GI 3Procedure: | | | ERCPIndications: elevated LFTs, hx of metastatic PDAC | | | with new simón dil and early | | | satietyProviders: KELLY PRINCE MD | | | (Doctor), KENYA FELIPE RN | | | (Nurse), BETY ORTIZ (Youth Program Director)Referring | | | MD: HARESH ALAS JR, MDRequesting Provider: | | | Medicines: Indomethacin 100 mg [place], General | | | AnesthesiaComplications: No immediate [...] | procedure. The Olympus | | | [id number] Therapeutic Endoscope #[id number] | | | was introduced through the | | | mouth, and advanced to the | | | duodenum and used to inject contrast into the bile duct. | | | The Olympus [id number]-160VF | | | Duodenoscope #[id number] was | | | introduced through the mouth, and advanced to the | | | duodenum and used to locate | | | the major papilla. The | | | Olympus [id number]-[id number] Peds Colonooscope #[id number] was | | | introduced through the mouth, | | | and advanced to the duodenum | | | and used to locate the major papilla. The ERCP | | | was accomplished without | | | difficulty. The patient | | | tolerated the procedure well.Estimated Blood Loss: Estimated | | | blood loss: none.Findings: The senior credit officer film was normal. The | | | [...] of Addenda: 0Note Initiated On: 10/23/2018 8:43 [facility] Letter | | | to: STEFFI [...] (L) | 3.5 - 4.7 g/dL | [facility] | | (LAB) | | | [...] | + + + + + | [facility] | [address] | [place] [address] | | | SERVICES, ELISHA | [address] [...] [facility] | [address] | [place] [address] | | | OF CARE TESTS | [...] [facility] | [address] | [place] [address] | | | ELISHA TRAMMELL | [address] | | | + + + + + URINE, MICROSCOPIC EXAM (10/17/2018 2:13 PM) + +---------+ + + | Component | Value | Ref Range | Performed At | + +---------+ + + | RED CELLS | 4 (H) | 0 - 3 /hpf | [facility] | | | | | ELISHA [...] 0 | 0 - 2 /lpf | [facility] | | | | | SERVICES, CORE | + +---------+ + + | GRANULAR CASTS | 0 | 0 - 2 /lpf | [facility] | | | | | SERVICES, CORE | + +---------+ + + | CELLULAR CASTS | 0 | <=0 /lpf | [facility] | | | | | SERVICES, CORE | + +---------+ + + | TRIPLE P04 CRYSTALS | None | None, Few /hpf | [facility] | | | | | SERVICES, CORE | + +---------+ + + | CALCIUM OXALATE GREGORIA | None | None, Few /hpf | [facility] | | | | | SERVICES, CORE | + +---------+ + + | URIC ACID CRYSTALS | None | None, Few /hpf | [facility] | | | | | SERVICES, CORE | + +---------+ + + | AMORPHOUS CRYSTALS | None | None, Few /hpf | [facility] | | | | | SERVICES, CORE | + +---------+ + + + + | Specimen | + + | Urine | + + + + + + + | Performing | Address | City/State/Zipcode | Phone Number | | Organization | | | | + + + + + | [facility] | [address] | [place] [address] | | | SERVICES, ELISHA | JOLIE [...] | + + + + + | [facility] | [address] | [place] [address] | | | SERVICES, CORE | JOLIE [...] [facility] | [address] | [place] [address] | | | OF CARE TESTS | [...] + + + + | [facility] | [address] | [place] [address] | | | OF CARE TESTS | [...] | + + + + + | [facility] | [address] | [place] [address] | | | SERVICES, CORE | PARK [...] | + + + + + | [facility] | [address] | [place] [address] | | | SERVICES, ELISHA | JOLIE [...] | 3.50 - 10.80 K/cu mm | [facility] | | | | | SERVICES, [...] 0.7 | 0.0 - 2.0 % | [facility] | | | | | SERVICES, CORE | + + + + + | IG% | 0.7Comment: Increased | 0.0 - 1.0 % | [facility] | | | immature granulocytes | [...] | 1.80 - 7.70 K/cu mm | [facility] | | | | | SERVICES, [...] | 0.00 - 0.10 K/cu mm | [facility] | | | | | SERVICES, [...] | + + + + + | [facility] | [address] | [place] [address] | | | SERVICES, CORE | JOLIE [...] >60 mL/min | [facility] | | [facility] | | | SERVICES, CORE | + + + + + | EGFR NON | >60 | >60 mL/min | [facility] | | -[facility] | | | SERVICES, CORE | + [...] T CMNT | No Hemo | | [facility] | | | | | SERVICES, CORE | + + + + + | AST CMNT | No Hemo | | [facility] | | | | | SERVICES, CORE | + + + + + + + | Specimen | + + | Blood - Blood | + + + + + | Narrative | Performed At | + + + | GFR is estimated using the MDRD equation recommended by the | [facility] | | National Kidney Disease Education Program. [...] | + + + + + | [facility] | [address] | [place] [address] | | | SERVICES, CORE | [address] | | | + + + + + BLOOD BANK HOLD TUBE - DON T PROCESS (10/01/2018 5:36 PM) + + + + + | Component | Value | Ref Range | Performed At | + + + + + | SPECIMEN COLLECTED, | Sample received with | | [facility] | | HELD | adeq label/volume [...] | + + + + + | [facility] | [address] | [place] [address] | | | SERVICES, | [address] | | | | TRANSFUSION MEDICINE | | | | + + + + + LIPASE, PLASMA (10/01/2018 5:36 PM) + + + + + | Component | Value | Ref Range | Performed At | + + + + + | LIPASE (LAB) | 1,676 (H) | 152 - 353 U/L | [facility] | | | | | [address] | + + + + + + + | Specimen | + + | Blood - Blood | + + + + + + + | Performing | Address | City/State/Zipcode | Phone Number | | Organization | | | | + + + + + | [facility] | [address] | [place] [address] | | | SERVICES, ELISHA | [address] | | | + + + + + ED INFORMATION EXCHANGE (10/01/2018 4:51 PM) + + + | Narrative | Performed At | + + + | [id number] [id number] Criteria Met PDMP | [facility] | | [...] 2018-08-13 OXYCODONE HCL 5 MG TABLET 11 [place] | | | LYO 0 2018-08-13 OXYCODONE HCL 5 MG TABLET 39 [place] LYO 0 | | | 2018-08-10 OXYCODONE HCL 5 MG TABLET 30 [place] [facility] 0 | | | 2018-07-30 ACETAMINOPHEN-COD [...] Diagnoses or Chief Complaint Oct 01, 2018 [facility] | | | [place] Emergency 10,800. Diarrhea | | | Recent Inpatient Visit Summary No recorded inpatient visits. | | | Care Providers There are no care providers on record at this time. | | | [employer] This patient has registered at the [facility] | | | [facility] Emergency Department For more information | | | visit: | | | [email or web address] | | | [email or web address] The above information [...] for additional information. | | | 2019 [employer] - [place], [place] - | | | [email or web address] | | + + + + + | Procedure Note | + + | Service Account, Rtf Results Inbound - 10/01/2018 4:52 PM PDT Formatting of this | | note may be different from the original.[id number]:50MARCIA [id number] Met | | PDMPSecurity and SafetyNo recent [...] 2018-08-17 ACETAMINOPHEN-COD #3 | | TABLET 30 [facility] 0 2018-08-13 OXYCODONE HCL 5 MG TABLET [...] 0 E.D. Visit Count (12 mo.)Facility Visits [facility] | | [facility] 1 Total 1 Note: Visits indicate total known visits. Recent | | Emergency Department Visit SummaryDate Facility City State Type Diagnoses or Chief | | Complaint Oct 01, 2018 [facility] [place] Emergency | | 10,800. Diarrhea Recent Inpatient Visit SummaryNo recorded inpatient visits. Care | | ProvidersThere are no care providers on record at this time. The Medical Memory PortalThis | | patient has registered at the [facility] Emergency Department | | For more information visit: | | [email or web address] The above | | information is provided for the sole purpose of patient treatment. Use of this | | information beyond the terms of Data Sharing Memorandum of Understanding and License | | Agreement is prohibited. In certain cases not all visits may be represented. Consult the | | aforementioned facilities for additional information. 2019 [employer] | | [employer] - [place], [place] - [email or web address] | |Rx Summary | |Metric Count | [...] Departmen t | |For more information visit: [email or web address] | |The above information is provided for the sole purpose of patient treatment. Use of this in formation beyond the terms of Data Sharing Memorandum of Understanding and License Agreement is prohibited. In | |certain cases not all visits may be represented. Consult the aforementioned facilities for additional information. | |2019 [employer] - [place], [place] - [email or web address] | + + + + + + + | Performing | Address | City/State/Zipcode | Phone Number | | Organization | | | | + + + + + | [facility] | [address], | [place], [place] | [phone] | | TE[employer] | [address] | [address] | | + + + + + VERNELL BRYAN (09/11/2018 8:27 AM) + + + | Narrative | Performed At | + + + | Youth Program Director | KARL [place]ALTON | | DocumentationRight EyeQuality: [...] | + + + + + | [facility] | [address] | [place] [address] | | | [place] | [facility]. | | | + + + + + PROCEDURE NOTE (08/28/2018 12:10 PM)IR PORT PROCEDURE (08/28/2018 9:48 AM) + + + | Narrative | Performed At | + + + | PROCEDURE: Removal of right chest port with placement of new port | [facility] | | PRIMARY OCCUPATIONAL THERAPIST: Varsha Avalos MD ANGIOGRAPHY ATTENDING: | RADIOLOGY [...] tip of the indwelling Port-A-Cath. A 5 Bermudian | | | dilator was inserted and [...] exchanged for an 8 | | | Bermudian peel-away sheath. The new catheter was advanced [...] port with placement of new port PRIMARY OCCUPATIONAL THERAPIST: Varsha | | MD Robbie ANGIOGRAPHY ATTENDING: [...] tip of the indwelling Port-A-Cath. A 5 Bermudian dilator was | | inserted and advanced [...] was | | exchanged for an 8 Bermudian peel-away sheath. The new catheter was advanced [...] + + | Performing | Address | City/State/[facility] Unitcode | Phone Number | | Organization | [...] | | 08/22/2018 2:59 PM Preliminary: Felix Davsi MD | | | Dictation initiated: Felix [...] 37.8 | 35.1 - 46.3 fL | [facility] | | | | | SERVICES, CORE | + + + + + | PLATELET COUNT | 377 | 150 - 400 K/cu mm | [facility] | | | | | SERVICES, CORE | + + + + + | MPV | 9.0 (L) | 9.7 - 12.3 fL | [facility] | | | | | SERVICES, CORE | + + + + + | NRBC% | 0.0 | 0.0 - 0.3 % | [facility] | | | | | SERVICES, CORE | + + + + + | NRBC# | 0.00 | 0.00 - 0.02 K/cu mm | [facility] | | | | | SERVICES, CORE | + + + + + + + | Specimen | + + | Blood - Blood | + + + + + + + | Performing | Address | City/State/Zipcode | Phone Number | | Organization | | | | + + + + + | [facility] | [address] | [place] [address] | | | SERVICES, ELISHA | [address] | | | + + + + + INR (08/22/2018 9:15 AM) + +-------+ + + | Component | Value | Ref Range | Performed At | + +-------+ + + | INR | 1.08 | 0.90 - 1.20 INR | [facility] | | | | | SERVICES, [...] | + + + + + | [facility] | [address] | [place] [address] | | | SERVICES, CORE | [address] [...] | Range: (75 - 120) sec | [facility], CORE | | Heparin levels of 0.35 - 0.7 U/mL | | + + + + + + + + | Performing | Address | City/State/Zipcode | Phone Number | | Organization | | | | + + + + + | [facility] | [address] | [place] [address] | | | SERVICES, CORE | PARK [...] | + + + + + | [facility] | [address] | [place] [address] | | | SERVICES, ELISHA | [address] | | | + + + + + MAGNESIUM, PLASMA (08/22/2018 9:15 AM) + +-------+ + + | Component | Value | Ref Range | Performed At | + +-------+ + + | MAGNESIUM,PLASMA | 2.3 | 1.6 - 2.6 mg/dL | [facility] | | | | | SERVICES, CORE | + +-------+ + + + + | Specimen | + + | Blood - Blood | + + + + + + + | Performing | Address | City/State/Zipcode | Phone Number | | Organization | | | | + + + + + | [facility] | [address] | [place] [address] | | | SERVICES, CORE | [address] [...] | + + + + + | [facility] | [address] | [place] [address] | | | SERVICES, CORE | PARK [...] | | | were discussed with the surgical scrub tech on 08/13/2018 at | | | approximately [...] | |These results were discussed with the surgical scrub tech on 08/13/2018 at approximately 1:45 PM [...] 1.021Comment: Specific | 1.005 - 1.030 | [facility] | | | [place] performed by | | VALERI CORE | | | refractometry | | | + + + + + + + | Specimen | + + | Urine - Clean catch | + + + + + + + | Performing | Address | City/State/Zipcode | Phone Number | | Organization | | | | + + + + + | [facility] | [address] | [place] [address] | | | SERVICES, CORE | [address] [...] Author: Luzmaria Lawrence MD, | | | [facility] Fellow ID: Philip Goode Date | | | of the Procedure: 08/10/2018 Preoperative Diagnosis: Metastatic | | | pancreatic cancer to liver Postoperative Diagnosis: same | | | Procedure: 1. Placement of right internal jugular vein Power Port | | | with U/S guidance and floroscopy 2. Diagnostic laparoscopy with | | | liver biopsy Surgeon: Martin Carrero MD Banquet Attendant(s): | | | Luzmaria Lawrence MD [facility], Galo Oneal MD R5 Indication: A [...] port site, through which we fei the 8-kiswahili | | | port line itself and [...] | | | Minimally Invasive Surgery Fellow [facility] | | | [place] P[place] [address] | | + + + LAPAROSCOPIC LIVER BIOPSY (08/10/2018 2:31 PM) + + + | Narrative | Performed At | + + + | Luzmaria Lawrence MD 08/10/2018 3:20 PM [facility] | | | Department of Surgery Operative Note Author: Luzmaria Lawrence MD, | | | [facility] MIS Fellow ID: Philip Goode Date | | | of the Procedure: 08/10/2018 Preoperative Diagnosis: Metastatic | | | pancreatic cancer to liver Postoperative Diagnosis: same | | | Procedure: 1. Placement of right internal jugular vein Power Port | | | with U/S guidance and floroscopy 2. Diagnostic laparoscopy with | | | liver biopsy Surgeon: Martin Carrero MD Banquet Attendant(s): | | | Luzmaria Lawrence MD MTGalo [...] port site, through which we fei the 8-kiswahili | | | port line itself and [...] | | | Minimally Invasive Surgery Fellow [facility] | | | [place] Pager [phone] | | + + + PD-L1 (08/10/2018 [...] + | Foundation | [facility] | | [facility] [address] [place] [address] | REFERENCE LAB | |[place] [address] | | | | | | | [...] REFERENCE LAB | | | | | [facility] | | | [address] | | | [place] [address] | | + + + + + [...] dav[place]son | | LAB | | | [address] | | | + + + + + + + | Specimen | + + | Slide-Block - Liver | + + + + + + + | Performing | Address | City/State/Zipcode | Phone Number | | Organization | | | | + + + + + | [facility] | | | | + + + + + | [facility] | see below | | | + + + + + SURGICAL PATHOLOGY (08/10/2018 2:01 PM) + + + + + | Component | Value | Ref Range | Performed At | + + + + + | Clinical History | 72 year old female with | | [facility] | | | a history of metastatic | | OF PATHOLOGY | | | pancreatic | | | | | adenocarcinoma | | | + + + + + | Final Pathologic | A. Liver, Segment 2-3 | | [facility] | | Diagnosis | liver, biopsy: [...] | PathologistPathology, | | | | | [facility] | | | | | [facility] electronic | | | | | signature [...] | Received is one specimen | | [facility] | | | fresh labeled with the | | OF PATHOLOGY | | | patient's name (initials | | | | | DARIO) and medical record | | | | | number [id number].A. | | | | | Liver, Segment [...] | Ancillary | Analyte specific | | [facility] | | Information | reagents are [...] | | | | | determined by [facility] | | | | | laboratories. It [...] | + + + + + | [facility] | [address] | [place] [address] | | | PATHOLOGY | [address] [...] | MEDICA | xxxxxxxxxxx | Medica | [phone] | [address] | | | RE A & | | re | [address] | [place] [address] | | | B | | | | | + +--------+ +--------+ + + | [employer] | MUTUAL | [phone] | Indemn | +5- | [employer] | | MEDICARE SUPPL | OF | | ity | [address] | | | [place] | | | | [address] | | | MEDICA | | | [...] | | venessa/Marty | | 1946 | [phone] | [place] [address] | | | seferino | | | [address] Home: | | | | | | | | | | | | | | [phone] | | | | | | | [phone] | | + +--------+ +--------+ + +
--- OUTSIDE RECORDS SUMMARY | ~2018-11-06 | XMS | Encounter Summary ---
Demographics + + + | Address | [address] | | | [place] [address] | + + + | Home Phone [...] | | | | | [place] [address] | | + + + + + Care Team Providers + +------+ + | Care Security Assurance Specialist Name | Role | Phone | [...] | | | 2019 | Event | [facility] | SERVICE DESK DIRECTOR [address] | | | | | Admitting Desk | [facility] | | | | | Located on the | [place], [place] | | | | | floor [address] [place] [address] | [phone] | | | | | [facility] | [phone] | | | | | [place], [place] | | | | | | [address] | | | +--------+ + + + [...] Guido | | Cathet | 7.5 Fr.; [id number]; 08/28/18; 0859; | Bon Niño RN | [...] | Periph | 08/10/18; 1255; alida linares vrt mechanic; | 08/10/18 1255 by | 08/10/18 180 [...] [address] | | | | | | [place] [address] | | +--------+ + + + + | 11/14/ | Office | Hematology & | Taz Mcneal, | | | 2018 | Visit | Oncology | PA-C [address] | | | | | | [address] | | | | | | [place], [place] | | | | | | [address] | | | | | | [phone] | | | | | | | | +--------+ + + + + | 11/14/ | Appointment | Hematology & | B/C, Pod [address] | | | 2019 | | Oncology | [place] | | | | | | [place] [address] | | +--------+ + + + + [...] Rd | | | | | | [place] | | | | | | [address] | | | | | | [phone] | | | | | | | | +--------+ + + + + | 11/28/ | Appointment | Hematology & | B/C, Pod [address] | | | 2018 | | Oncology | [place] | | | | | | [place] [address] | | +--------+ + + + + [...] Rd | | | | | | [place], [place] | | | | | | [address] | | | | | | [phone] | | | | | | | | +--------+ + + + + | 12/12/ | Appointment | Hematology & | B/C, Pod [address] | | | 2018 | | Oncology | [place], | | | | | | [place] [address] | | +--------+ + + + + [...] I prepared the Stor | | | [facility] endoscope. Dr Bolivar proceeded with [...]
--- OUTSIDE RECORDS SUMMARY | ~2018-11-06 | XMS | Encounter Summary ---
Demographics + + + | Address | [address] | | | [place] [address] | + + + | Home Phone [...] | | | | | [place] [address] | | + + + + + Care Team Providers + +------+ + | Care Stone Chimney Mason Name | Role | Phone | + [...] on | Oncology at [facility] | [facility] | therapy | | | | [address] | [address] [place], [place] | | | | | Mailcode: [place] | [phone] | | | | | for Health and | | | | | | Healing, [address] | | | | | | [place], [place] | | | | | | [address] | | | | | | [phone] | | | +--------+ + + + [...] [address] | | | | | | [place] [address] | | +--------+ + + + + | 11/14/ | Office | Hematology & | Taz Mcneal, | | | 2018 | Visit | Oncology | PA-C [address] | | | | | | [address] | | | | | | [place] | | | | | | [address] | | | | | | [phone] | | | | | | | | +--------+ + + + + | 11/14/ | Appointment | Hematology & | B/C, Pod [address] | | | 2019 | | Oncology | [place] | | | | | | [place] [address] | | +--------+ + + + + [...] [place] | | | | | | [address] | | | | | | [phone] | | | | | | | | +--------+ + + + + | 11/28/ | Appointment | Hematology & | B/C, Pod [address] | | | 2018 | | Oncology | [place], | | | | | | [place] [address] | | +--------+ + + + + [...] [place] | | | | | | [address] | | | | | | [phone] | | | | | | | | +--------+ + + + + | 12/12/ | Appointment | Hematology & | B/C, Pod [address] | | | 2019 | | Oncology | [place], | | | | | | [place] [address] | | +--------+ + + + + as of this encounter Visit Diagnoses Not on filein this encounter"
--- OUTSIDE RECORDS SUMMARY | ~2018-11-06 | XMS | Encounter Summary ---
Demographics + + + | Address | [address] | | | [place] [address] | + + + | Home Phone [...] | | | | | [place] [address] | | + + + + + Care Team Providers + +------+ + | Care Hide Spreader Name | Role | Phone | + [...] | | 2019 | | [facility]cology at [place] | ,PhD [address] | (ERCP); Radiology | | | | for Health & Healing | [address] [place], [place] | Order ("Upper GI | | | | [address] | [address] | series" - need | | | | Mailcode: [place] | [phone] | clarification for | | | | for Health and | | valid orders.) | | | | Healing, [address] | | | | | | [place], [place] | | | | | | [address] | | | | | | [phone] | | | +--------+ + + + [...] | | 2018 | | Oncology | [address] | | | | | | [place] [address] | | +--------+ + + + + | 11/14/ | Office | Hematology & | Tza Mcneal, | | | 2018 | Visit | Oncology | OLYA [address] | | | | | | [address] | | | | | | [place], [place] | | | | | | [address] | | | | | | [phone] | | | | | | | | +--------+ + + + + | 11/14/ | Appointment | Hematology & | B/C, Pod [address] | | | 2018 | | Oncology | [place], | | | | | | [place] [address] | | +--------+ + + + + | 11/28/ | Clinical | | | | | 2019 | Support | | | | | | Staff | | | | +--------+ + + + + | 11/28/ | Office | Hematology & | Taz Mcneal, | | | 2018 | Visit | Oncology | OLYA [address] | | | | | | [address] | | | | | | [place], [place] | | | | | | [address] | | | | | | [phone] | | | | | | | | +--------+ + + + + | 11/28/ | Appointment | Hematology & | B/C, Pod [address] | | | 2019 | | Oncology | [place], | | | | | | [place] [address] | | +--------+ + + + + | 12/12/ | Clinical | | | | | 2018 | Support | | | | | | Staff | | | | +--------+ + + + + | 12/12/ | Office | Hematology & | Taz Mcneal, | | | 2018 | Visit | Oncology | PA-C [address] | | | | | | [address] | | | | | | [place] | | | | | | [address] | | | | | | [phone] | | | | | | | | +--------+ + + + + | 12/12/ | Appointment | Hematology & | B/C, Pod [address] | | | 2019 | | Oncology | [place], | | | | | | [place] [address] | | +--------+ + + + + as of this encounter Visit Diagnoses Not on filein this encounter
--- OUTSIDE RECORDS SUMMARY | ~2018-11-06 | XMS | Encounter Summary ---
Demographics + + + | Address | [address] | | | [place] [address] | + + + | Home Phone [...] | | | | | [place] [address] | | + + + + + Care Team Providers + +------+ + | Care Coroner Name | Role | Phone | + [...] | | | | Mailcode: Center | [place], [place] | | | | | [facility] | [address] | | | | | Healing, [address] | | | | | | [place], [place] | | | | | | [address] | | | | | | [phone] | | | +--------+ + + + [...] Isra | | | | | | [place] [address] | | +--------+ + + + + | 11/14/ | Office | Hematology & | Taz Mcneal, | | | 2018 | Visit | Oncology | PA-C [address] | | | | | | [address] | | | | | | [place] | | | | | | [address] | | | | | | [phone] | | | | | | | | +--------+ + + + + | 11/14/ | Appointment | Hematology & | B/C, Pod [address] | | | 2019 | | Oncology | [place] | | | | | | [place] [address] | | +--------+ + + + + [...] [address] | | | | | | [address] | | | | | | [place] | | | | | | [address] | | | | | | [phone] | | | | | | | | +--------+ + + + + | 11/28/ | Appointment | Hematology & | B/C, Pod [address] | | | 2018 | | Oncology | [place], | | | | | | [place] [address] | | +--------+ + + + + [...] [place] | | | | | | [address] | | | | | | [phone] | | | | | | | | +--------+ + + + + | 12/12/ | Appointment | Hematology & | B/C, Pod [address] | | | 2019 | | Oncology | [place], | | | | | | [place] [address] | | +--------+ + + + + as of this encounter Visit Diagnoses Not on filein this encounter"
--- OUTSIDE RECORDS SUMMARY | ~2018-11-06 | XMS | Encounter Summary ---
Demographics + + + | Address | [address] | | | [place] [address] | + + + | Home Phone [...] | | | | | [place] [address] | | + + + + + Care Team Providers + +------+ + | Care Bridal Sales Consultant Name | Role | Phone | + +------+ + | Piotr Plummer MD | PCP | | + +------+ + Encounter Details +--------+ + + + + | Date | Type | Department | Care Team | Description | +--------+ + + + + | 08/10/ | Pharmacy | Outpatient Retail | | | | 2018 | Visit | [facility] | | | | | | [address] | | | | | | [place]anna Ven[place]as | | | | | | [place], [place] | | | | | | [address] | | | +--------+ + + + [...] Rd | | | | | | [place] [address] | | +--------+ + + + + | 11/14/ | Office | Hematology & | Taz Mcneal, | | | 2019 | Visit | Oncology | OLYA [address] | | | | | | [address] | | | | | | [place], [place] | | | | | | [address] | | | | | | [phone] | | | | | | | | +--------+ + + + + | 11/14/ | Appointment | Hematology & | B/C, Pod [address] | | | 2019 | | Oncology | [place], | | | | | | [place] [address] | | +--------+ + + + + | 11/28/ | Clinical | | | | | 2018 | Support | | | | | | Staff | | | | +--------+ + + + + | 11/28/ | Office | Hematology & | Taz Mcneal, | | | 2018 | Visit | Oncology | OLYA [address] | | | | | | [address] | | | | | | [place], [place] | | | | | | [address] | | | | | | [phone] | | | | | | | | +--------+ + + + + | 11/28/ | Appointment | Hematology & | B/C, Pod [address] | | | 2019 | | Oncology | [place], | | | | | | [place] [address] | | +--------+ + + + + [...] [place] | | | | | | [address] | | | | | | [phone] | | | | | | | | +--------+ + + + + | 12/12/ | Appointment | Hematology & | B/C, Pod [address] | | | 2019 | | Oncology | [place] | | | | | | [place] [address] | | +--------+ + + + + as of this encounter Visit Diagnoses Not on filein this encounter"
--- OUTSIDE RECORDS SUMMARY | ~2018-11-06 | XMS | Encounter Summary ---
Demographics + + + | Address | [address] | | | [place] [address] | + + + | Home Phone [...] | | | | | [place] [address] | | + + + + + Care Team Providers + +------+ + | Care Scheduling Administrator Name | Role | Phone | + +------+ + | Piotr Plummer MD | PCP | | + +------+ + Encounter Details +--------+ + + + + | Date | Type | Department | Care Team | Description | +--------+ + + + + | 09/18/ | Documentati | Hematology/Medical | Toni Mccrary, | | | 2019 | on | [facility] at [place] | ,PhD [address] | | | | | for Health & Healing | [place], [place] | | | | | [address] | [address] | | | | | Mailcode: [place] | [phone] | | | | | for Health and | | | | | | Healing, [address] | | | | | | [place], [place] | | | | | | [address] | | | | | | [phone] | | | +--------+ + + + [...] Rd | | | | | | [place] [address] | | +--------+ + + + + | 11/14/ | Office | Hematology & | Taz Mcneal, | | | 2019 | Visit | Oncology | FABIANA-Cindy [address] | | | | | | [address] | | | | | | [place], [place] | | | | | | [address] | | | | | | [phone] | | | | | | | | +--------+ + + + + | 11/14/ | Appointment | Hematology & | B/C, Pod [address] | | | 2018 | | Oncology | [place], | | | | | | [place] [address] | | +--------+ + + + + | 11/28/ | Clinical | | | | | 2019 | Support | | | | | | Staff | | | | +--------+ + + + + | 11/28/ | Office | Hematology & | Taz Mcneal, | | | 2019 | Visit | Oncology | FABIANA-C [address] | | | | | | [address] | | | | | | [facility], [place] | | | | | | [address] | | | | | | [phone] | | | | | | | | +--------+ + + + + | 11/28/ | Appointment | Hematology & | B/C, Pod [address] | | | 2018 | | Oncology | [place], | | | | | | [place] [address] | | +--------+ + + + + [...] [place] | | | | | | [address] | | | | | | [phone] | | | | | | | | +--------+ + + + + | 12/12/ | Appointment | Hematology & | B/C, Pod [address] | | | 2019 | | Oncology | [place], | | | | | | [place] [address] | | +--------+ + + + + as of this encounter Visit Diagnoses Not on filein this encounter"
--- OUTSIDE RECORDS SUMMARY | ~2018-11-06 | XMS | Encounter Summary ---
Demographics + + + | Address | [address] | | | [place] [address] | + + + | Home Phone [...] | | | | | [place] [address] | | + + + + + Care Team Providers + +------+ + | Care Concrete Carpenter Name | Role | Phone | + [...] | 2019 | Encounter | [facility]cology at [place] | ,PhD [address] | | | | | for Health & Healing | [place], [place] | | | | | [address] | [address] | | | | | Mailcode: [place] | [phone] | | | | | for Health and | | | | | | [facility] [address] | | | | | | [place], [place] | | | | | | [address] | | | | | | [phone] | | | +--------+ + + + [...] Rd | | | | | | [place] [address] | | +--------+ + + + + | 11/14/ | Office | Hematology & | Taz Mcneal, | | | 2018 | Visit | Oncology | OLYA [address] | | | | | | [address] | | | | | | [place] | | | | | | [address] | | | | | | [phone] | | | | | | | | +--------+ + + + + | 11/14/ | Appointment | Hematology & | B/C, Pod [address] | | | 2019 | | Oncology | [place], | | | | | | [place] [address] | | +--------+ + + + + [...] [place] | | | | | | [address] | | | | | | [phone] | | | | | | | | +--------+ + + + + | 11/28/ | Appointment | Hematology & | B/C, Pod [address] | | | 2018 | | Oncology | [place], | | | | | | [place] [address] | | +--------+ + + + + | 12/12/ | Clinical | | | | | 2018 | Support | | | | | | Staff | | | | +--------+ + + + + | 12/12/ | Office | Hematology & | Taz Mcneal, | | | 2018 | Visit | Oncology | OLYA [address] | | | | | | [address] | | | | | | [place] | | | | | | [address] | | | | | | [phone] | | | | | | | | +--------+ + + + + | 12/12/ | Appointment | Hematology & | B/C, Pod [address] | | | 2019 | | Oncology | [place], | | | | | | [place] [address] | | +--------+ + + + + as of this encounter Visit Diagnoses Not on filein this encounter"
--- OUTSIDE RECORDS SUMMARY | ~2018-11-06 | XMS | Encounter Summary ---
Demographics + + + | Address | [address] | | | [place] [address] | + + + | Home Phone [...] | | | | | [place] [address] | | + + + + + Care Team Providers + +------+ + | Care Edge Stripper Name | Role | Phone | + [...] [address] | | | | | | [place], [place] | | | | | | [address] | | | +--------+ + + + [...] Rd | | | | | | [place] [address] | | +--------+ + + + + | 11/14/ | Office | Hematology & | Taz Mcneal, | | | 2019 | Visit | Oncology | OLYA [address] | | | | | | [address] | | | | | | [place], [place] | | | | | | [address] | | | | | | [phone] | | | | | | | | +--------+ + + + + | 11/14/ | Appointment | Hematology & | B/C, Pod [address] | | | 2019 | | Oncology | [place], | | | | | | [place] [address] | | +--------+ + + + + | 11/28/ | Clinical | | | | | 2018 | Support | | | | | | Staff | | | | +--------+ + + + + | 11/28/ | Office | Hematology & | Taz Mcneal, | | | 2018 | Visit | Oncology | OLYA [address] | | | | | | [address] | | | | | | [place], [place] | | | | | | [address] | | | | | | [phone] | | | | | | | | +--------+ + + + + | 11/28/ | Appointment | Hematology & | B/C, Pod [address] | | | 2019 | | Oncology | [place], | | | | | | [place] [address] | | +--------+ + + + + [...] [place] | | | | | | [address] | | | | | | [phone] | | | | | | | | +--------+ + + + + | 12/12/ | Appointment | Hematology & | B/C, Pod [address] | | | 2019 | | Oncology | [place] | | | | | | [place] [address] | | +--------+ + + + + as of this encounter Visit Diagnoses Not on filein this encounter"
--- OUTSIDE RECORDS SUMMARY | ~2018-11-06 | XMS | Encounter Summary ---
Demographics + + + | Address | [address] | | | [place] [address] | + + + | Home Phone [...] | | | | | [place] [address] | | + + + + + Care Team Providers + +------+ + | Care Roving Technician Name | Role | Phone | [...] | [facility] at [facility] | [address] [place], | | | | | [address] | [place] [address] | | | | | Mailcode: [place] | | | | | | for Health and | | | | | | Healing, [address] | | | | | | [place], [place] | | | | | | [address] | | | | | | [phone] | | | +--------+ + + + [...] | | | | | | adenocarcinoma ([facility]) | dose: 40 mg/day | | [...] PM PSTChemotherapy Nurse Note Name: Elaine NAQVI: [id number] Date: 09/05/2018 Physician: Hermann Allergies: Elaine has [...] Medication infused with 500ml NS sidearm bag. Elaine tolerated the infusions without incident. PAC flushed w ith heparin and deaccessed per protocol. Elaine was in no acute distress when she discharged ambulatory with family/motor driver. Refer to MAR and Onc Lines [...] [address] | | | | | | [place] [address] | | +--------+ + + + + | 11/14/ | Office | Hematology & | Taz Mcneal, | | | 2019 | Visit | Oncology | PA-C [address] | | | | | | [address] | | | | | | [place], [place] | | | | | | [address] | | | | | | [phone] | | | | | | | | +--------+ + + + + | 11/14/ | Appointment | Hematology & | B/C, Pod [address] | | | 2019 | | Oncology | [place], | | | | | | [place] [address] | | +--------+ + + + + [...] Rd | | | | | | [place], [place] | | | | | | [address] | | | | | | [phone] | | | | | | | | +--------+ + + + + | 11/28/ | Appointment | Hematology & | B/C, Pod [address] | | | 2018 | | Oncology | [place], | | | | | | [place] [address] | | +--------+ + + + + [...] Rd | | | | | | [place], [place] | | | | | | [address] | | | | | | [phone] | | | | | | | | +--------+ + + + + | 12/12/ | Appointment | Hematology & | B/C, Pod [address] | | | 2018 | | Oncology | [address] [place], | | | | | | [place] [address] | | +--------+ + + + + [...] + + | BARBARA OWEN | [address] [facility] | [place] [address] | | | OF CARE TESTS | [...] + + | BARBARA OWEN | [address] [facility] | [place] [address] | | | OF CARE TESTS | [...] [facility] | [address] | [place] [address] | | | SERVICES, CORE | PARK [...]
--- OUTSIDE RECORDS SUMMARY | ~2018-11-06 | XMS | Encounter Summary ---
Demographics + + + | Address | [address] | | | [place] [address] | + + + | Home Phone | | + + + | Preferred Language | Unknown | + + + | Marital Status | | + + + | Scientology Affiliation | NRP | + + + [...] | | | | | [place] [address] | | + + + + + Care Team Providers + +------+ + | Care Chemist Enzymes Name | Role | Phone | + [...] | | 2019 | | [facility]cology at [place] | ,PhD [address] | (ERCP); Radiology | | | | for Health & Healing | [address] [place], [place] | Order ("Upper GI | | | | [address] | [address] | series" - need | | | | Mailcode: [place] | [phone] | clarification for | | | | for Health and | | valid orders.) | | | | Healing, [address] | | | | | | [place], [place] | | | | | | [address] | | | | | | [phone] | | | +--------+ + + + [...] | | 2018 | | Oncology | [address] | | | | | | [place] [address] | | +--------+ + + + + | 11/14/ | Office | Hematology & | Taz Mcneal, | | | 2018 | Visit | Oncology | OLYA [address] | | | | | | [address] | | | | | | [place], [place] | | | | | | [address] | | | | | | [phone] | | | | | | | | +--------+ + + + + | 11/14/ | Appointment | Hematology & | B/C, Pod [address] | | | 2018 | | Oncology | [place], | | | | | | [place] [address] | | +--------+ + + + + [...] Rd | | | | | | [place], [place] | | | | | | [address] | | | | | | [phone] | | | | | | | | +--------+ + + + + | 11/28/ | Appointment | Hematology & | B/C, Pod [address] | | | 2019 | | Oncology | [place], | | | | | | [place] [address] | | +--------+ + + + + | 12/12/ | Clinical | | | | | 2018 | Support | | | | | | Staff | | | | +--------+ + + + + | 12/12/ | Office | Hematology & | Taz Mcneal, | | | 2018 | Visit | Oncology | PA-C [address] [facility] | | | | | | [address] | | | | | | [place] | | | | | | [address] | | | | | | [phone] | | | | | | | | +--------+ + + + + | 12/12/ | Appointment | Hematology & | B/C, Pod [address] | | | 2019 | | Oncology | [place], | | | | | | [place] [address] | | +--------+ + + + + as of this encounter Visit Diagnoses Not on filein this encounter
--- OUTSIDE RECORDS SUMMARY | ~2018-11-06 | XMS | Encounter Summary ---
Demographics + + + | Address | [address] | | | [place] [address] | + + + | Home Phone [...] | | | | | [place] [address] | | + + + + + Care Team Providers + +------+ + | Care Orchardist Name | Role | Phone | + [...] | | | | adenocarcino | ,PhD [address] | | | | | | ma (HCC) | [address] | | | | | | Liver | [place], | | | | | | metastases | [place] | | | | | | (HCC) | [address] | | | | | | Procedures | Phone: | | | | | | CT CHEST, | [phone] | | | | | | ABDOMEN AND | Fax: | | | | | | PELVIS W IV | [phone] | | | | | | CONTRAST | | | + +--------+ + + + + Encounter Details +--------+ + + + + | Date | Type | Department | Care Team | Description | +--------+ + + + + | 10/16/ | Call Center Trainer | Hematology/Medical | Toni Mccrary, | Pancreatic | | 2019 | | Oncology at [place] | ,PhD [address] | adenocarcinoma (HCC) | | | | for Health & Healing | [address] [place], [place] | (Primary Dx); Liver | | | | [address] | [address] | metastases (HCC) | | | | Mailcode: [place] | [phone] | | | | | for Health and | | | | | | Healing, [address] | | | | | | [place], [place] | | | | | | [address] | | | | | | [phone] | | | +--------+ + + + [...] | | | | | [place] [address] | | +--------+ + + + + | 11/14/ | Office | Hematology & | Taz Mcneal, | | | 2018 | Visit | Oncology | PA-C [address] | | | | | | [address] | | | | | | [place], [place] | | | | | | [address] | | | | | | [phone] | | | | | | | | +--------+ + + + + | 11/14/ | Appointment | Hematology & | B/C, Pod [address] | | | 2018 | | Oncology | [place], | | | | | | [place] [address] | | +--------+ + + + + [...] [place] | | | | | | [address] | | | | | | [phone] | | | | | | | | +--------+ + + + + | 11/28/ | Appointment | Hematology & | B/C, Pod [address] | | | 2019 | | Oncology | [place], | | | | | | [place] [address] | | +--------+ + + + + | 12/12/ | Clinical | | | | | 2018 | Support | | | | | | Staff | | | | +--------+ + + + + | 12/12/ | Office | Hematology & | Taz Mcneal, | | | 2018 | Visit | Oncology | O[place] [address] | | | | | | [address] | | | | | | [place], [place] | | | | | | [address] | | | | | | [phone] | | | | | | | | +--------+ + + + + | 12/12/ | Appointment | Hematology & | B/C, Pod [address] | | | 2018 | | Oncology | [address] [place], | | | | | | [place] [address] | | +--------+ + + + + [...]
--- OUTSIDE RECORDS SUMMARY | ~2018-11-06 | XMS | Encounter Summary ---
Demographics + + + | Address | [address] | | | [place] [address] | + + + | Home Phone [...] | | | | | [place] [address] | | + + + + + Care Team Providers + +------+ + | Care Outside Event Sales Specialist Name | Role | Phone | + +------+ + | Piotr Plummer MD | PCP | | + +------+ + Encounter Details +--------+ + + + + | Date | Type | Department | Care Team | Description | +--------+ + + + + | 10/30/ | Detective Bureau Chief | Hematology/Medical | Toni Mccrary, | | | 2019 | | Oncology at [place] | ,PhD [address] | | | | | for Health & Healing | [place], [place] | | | | | [address] [facility] | [address] | | | | | Mailcode: [place] | [phone] | | | | | for Health and | | | | | | Healing, [address] | | | | | | [place], [place] | | | | | | [address] | | | | | | [phone] | | | +--------+ + + + [...] Rd | | | | | | [place] [address] | | +--------+ + + + + | 11/14/ | Office | Hematology & | Taz Mcneal, | | | 2019 | Visit | Oncology | FABIANA-Cindy [address] | | | | | | [address] | | | | | | [facility] [place] | | | | | | [address] | | | | | | [phone] | | | | | | | | +--------+ + + + + | 11/14/ | Appointment | Hematology & | B/C, Pod [address] | | | 2019 | | Oncology | [place], | | | | | | [place] [address] | | +--------+ + + + + [...] [place] | | | | | | [address] | | | | | | [phone] | | | | | | | | +--------+ + + + + | 11/28/ | Appointment | Hematology & | B/C, Pod [address] | | | 2019 | | Oncology | [place], | | | | | | [place] [address] | | +--------+ + + + + | 12/12/ | Clinical | | | | | 2019 | Support | | | | | | Staff | | | | +--------+ + + + + | 12/12/ | Office | Hematology & | Taz Mcneal, | | | 2018 | Visit | Oncology | PA-C [address] [facility] | | | | | | [address] | | | | | | [place], [place] | | | | | | [address] | | | | | | [phone] | | | | | | | | +--------+ + + + + | 12/12/ | Appointment | Hematology & | B/C, [address] | | | 2019 | | Oncology | [place], | | | | | | [place] [address] | | +--------+ + + + + as of this encounter Visit Diagnoses Not on filein this encounter"
--- OUTSIDE RECORDS SUMMARY | ~2018-11-06 | XMS | Encounter Summary ---
Demographics + + + | Address | [address] | | | [place] [address] | + + + | Home Phone [...] | | | | | [place] [address] | | + + + + + Care Team Providers + +------+ + | Care Rn Transition Name | Role | Phone | + [...] | | 2019 | | [facility] | ,PhD [address] | (IV hydration twice | | | | [facility] | [place], [place] | weekly / ); Urine | | | | [address] | [address] | Results | | | | Mailcode: [facility] | [phone] | | | | | [facility] | | | | | | He[facility], [address] | | | | | | [place], [place] | | | | | | [address] | | | | | | [phone] | | | +--------+ + + + [...] Rd | | | | | | [place] [address] | | +--------+ + + + + | 11/14/ | Office | Hematology & | Taz Mcneal, | | | 2019 | Visit | Oncology | [facility] [address] | | | | | | [address] | | | | | | [place], [place] | | | | | | [address] | | | | | | [phone] | | | | | | | | +--------+ + + + + | 11/14/ | Appointment | Hematology & | B/C, [address] | | | 2018 | | Oncology | [place], | | | | | | [place] [address] | | +--------+ + + + + [...] [address] | | | | | | [place] | | | | | | [address] | | | | | | [phone] | | | | | | | | +--------+ + + + + | 11/28/ | Appointment | Hematology & | B/C, [address] | | | 2019 | | Oncology | [place] | | | | | | [place] [address] | | +--------+ + + + + [...] [place] | | | | | | [address] | | | | | | [phone] | | | | | | | | +--------+ + + + + | 12/12/ | Appointment | Hematology & | B/C, [address] | | | 2019 | | Oncology | [place] | | | | | | [place] [address] | | +--------+ + + + + as of this encounter Visit Diagnoses Not on filein this encounter"
--- OUTSIDE RECORDS SUMMARY | ~2018-11-06 | XMS | Encounter Summary ---
Demographics + + + | Address | [address] | | | [place] [address] | + + + | Home Phone [...] | | | | | [place] [address] | | + + + + + Care Team Providers + +------+ + | Care Auxiliary Operator Name | Role | Phone | + +------+ + | Piotr Plummer MD | PCP | | + +------+ + Reason for Visit + + + | Reason | Comments | + + + | Refill Request | morphine ER 15 mg ER | + + + Encounter Details +--------+--------+ + + + | Date | Type | Department | Care Team | Description | +--------+--------+ + + + | 10/24/ | Refill | Hematology/Medical | Toni Mccrary, | Refill Request | | 2019 | | [facility] [place] | ,PhD [address] | (morphine ER 15 mg | | | | for Health & Healing | [address] [place], [place] | ER) | | | | [address] | [address] | | | | | Mailcode: [place] | [phone] | | | | | for Health and | | | | | | Healing, [address] | | | | | | [place], [place] | | | | | | [address] | | | | | | [phone] | | | +--------+--------+ + + + [...] | | | | | [place] [address] | | +--------+ + + + + | 11/14/ | Office | Hematology & | Taz Mcneal, | | | 2018 | Visit | Oncology | PA-C [address] | | | | | | [address] | | | | | | [facility] | | | | | | [address] | | | | | | [phone] | | | | | | | | +--------+ + + + + | 11/14/ | Appointment | Hematology & | B/C, Pod [address] | | | 2018 | | Oncology | [place] | | | | | | [place] [address] | | +--------+ + + + + | 11/28/ | Clinical | | | | | 2018 | Support | | | | | | Staff | | | | +--------+ + + + + | 11/28/ | Office | Hematology & | Taz Mcneal, | | | 2018 | Visit | Oncology | PA-C [address] [facility] | | | | | | [address] | | | | | | [place] | | | | | | [address] | | | | | | [phone] | | | | | | | | +--------+ + + + + | 11/28/ | Appointment | Hematology & | B/C, Pod [address] | | | 2019 | | Oncology | [place] | | | | | | [place] [address] | | +--------+ + + + + [...] [place] | | | | | | [address] | | | | | | [phone] | | | | | | | | +--------+ + + + + | 12/12/ | Appointment | Hematology & | B/C, Pod [address] | | | 2018 | | Oncology | [place], | | | | | | [place] [address] | | +--------+ + + + + as of this encounter Visit Diagnoses Not on filein this encounter"
--- OUTSIDE RECORDS SUMMARY | ~2018-11-06 | XMS | Encounter Summary ---
Demographics + + + | Address | [address] | | | [place] [address] | + + + | Home Phone | | + + + | Preferred Language | Unknown | + + + | Marital Status | | + + + | Nondenominational Affiliation | NRP | + + + | Race | White | + + + | Ethnic Group | Not or | + + + Author + + + | Author | [facility] | + + + | Organization | [facility] | + + + | Address | Unknown | + + + | Phone | Unavailable | + + + Support + + + + + | Name | Relationship | Address | Phone | + + + + + | ELSA GOODE | ECON | [address] | | | | | [place] [address] | | + + + + + Care Team Providers + +------+ + | Care Art Coordinator Name | Role | Phone | [...] | [facility] | [address] [place], | | | | | [address] | [place] [address] | | | | | Mailcode: [place] | | | | | | for Health and | | | | | | Healing, [address] | | | | | | [place], [place] | | | | | | [address] | | | | | | [phone] | | | +--------+ + + + [...] | 1 | 09/13/19 | | | cpzcqw-tpcuhhqc-[id number] | meals and 1 | capsule | [...] protocol. Labs dra luna and [facility] PAC flushed per protocol and left accessed [...] [address] | | | | | | [place] [address] | | +--------+ + + + + | 11/14/ | Office | Hematology & | Taz Mcneal, | | | 2018 | Visit | Oncology | PA-C [address] | | | | | | [address] | | | | | | [place] | | | | | | [address] | | | | | | [phone] | | | | | | | | +--------+ + + + + | 11/14/ | Appointment | Hematology & | B/C, Pod [address] | | | 2019 | | Oncology | [place] | | | | | | [place] [address] | | +--------+ + + + + | 11/28/ | Clinical | | | | | 2019 | Support | | | | | | Staff | | | | +--------+ + + + + | 11/28/ | Office | Hematology & | Taz Mcneal, | | | 2018 | Visit | Oncology | PA-Cindy [address] [facility] | | | | | | [address] | | | | | | [place] | | | | | | [address] | | | | | | [phone] | | | | | | | | +--------+ + + + + | 11/28/ | Appointment | Hematology & | B/C, Pod [address] | | | 2018 | | Oncology | [place] | | | | | | [place] [address] | | +--------+ + + + + | 12/12/ | Clinical | | | | | 2018 | Support | | | | | | Staff | | | | +--------+ + + + + | 12/12/ | Office | Hematology & | Taz Mcneal, | | | 2018 | Visit | Oncology | PA-C [address] [facility] | | | | | | [address] | | | | | | [place], [place] | | | | | | [address] | | | | | | [phone] | | | | | | | | +--------+ + + + + | 12/12/ | Appointment | Hematology & | B/C, Pod [address] | | | 2018 | | Oncology | [place], | | | | | | [place] [address] | | +--------+ + + + + [...] [facility] | [address] | [place] [address] | | | SERVICES, CORE | PARK [...] >60 mL/min | [facility] | | ERITREAN | | | SERVICES, | | | | | [facility] | | | | HE[facility] + | | | | | HEALING | + + + + + | EGFR NON | >60 | >60 mL/min | [facility] | | -ERITREAN | | | SERVICES, | | | [...] 0.4 | 0.3 - 1.2 mg/dL | [facility] | | | | | SERVICES, | | | | | [facility] | | | | | HEALTH + | | | | | HEALING | + + + + + | TOTAL PROTEIN, | 6.8 | 6.4 - 8.2 g/dL | [facility] | | PLASMA (LAB) [...] | + + + + + | [facility] | [address] | [place] [address] | | | SERVICES, [facility] | | | | | HEALTH [...] 85.9 | 80.0 - 100.0 fL | [facility] | | | | | SERVICES, | | | | | [facility] | | | | | HEALTH + | | | | | HEALING | + + + + + | [facility] | 31.5 (L) | 32.0 - 36.0 g/dL | [facility] | | | | | SERVICES, [...] + + + + + | [facility] | [address] | [place] [address] | | | [facility] | | | | | HEALTH + HEALING | | | | + + + + + in this encounter Visit Diagnoses + + | Diagnosis | + + | Pancreatic adenocarcinoma (HCC) | + + | Malignant neoplasm of pancreas, part unspecified | + +"
--- OUTSIDE RECORDS SUMMARY | ~2018-11-06 | XMS | Encounter Summary ---
Demographics + + + | Address | [address] | | | [place] [address] | + + + | Home Phone [...] | | | | | [place] [address] | | + + + + + Care Team Providers + +------+ + | Care Certified Appliance Service Technician Name | Role | Phone | [...] | 2019 | Visit | [facility] | O[place] [address] | adenocarcinoma (HCC) | | | | for Health & Healing | [address] | (Primary Dx); Liver | | | | [address] | [place], [place] | metastases (HCC); | | | | Mailcode: [facility] | [address] | Encounter for | | | | for Health and | [phone] | antineoplastic | | | | [facility] 2 | | chemotherapy | | | | [place], [place] | | | | | | [address] | | | | | | [phone] | | | +--------+---------+ + + + [...] clinic hours please call the clinic at [phone]. Evenings, weekends and holidays please call [phone] and ask to have the oncologist precision inspector paged. in this encounter Progress Notes Taz [...] ABDOMEN AND PELVIS W IV CONTRAST Order: [id number] Performed: 08/13/2018 13:22 Status: Final result Visible [...] These results were discussed with the surgical tech on 08/13/2018 at approximately 1:45 [...] hypoK+, C Diff ne gative. --Hold C3D1 [place]/Abraxane today (10/17/2018) per Dr. Mccrary --Repeat CT [...] 10/17/2018) Taz Mcneal PA-C HEMATOLOGY/MEDICAL ONCOLOGY AT [facility] [address] Mailcode: [place] [address] in this encounter Plan of Treatment +--------+ + + + + | Date | Type | Specialty | Care Team | Description | +--------+ + + + + | 11/14/ | Appointment | Hematology & | Rn, Fast Track | | | 2018 | | Oncology | [address] | | | | | | [place] [address] | | +--------+ + + + + | 11/14/ | Office | Hematology & | Taz Mcneal, | | | 2018 | Visit | Oncology | PA-C [address] | | | | | | [address] | | | | | | [place], [place] | | | | | | [address] | | | | | | [phone] | | | | | | | | +--------+ + + + + | 11/14/ | Appointment | Hematology & | B/C, Pod [address] | | 2018 | | Oncology | [place], | | | | | | [place] [address] | | +--------+ + + + + [...] Rd | | | | | | [place], [place] | | | | | | [address] | | | | | | [phone] | | | | | | | | +--------+ + + + + | 11/28/ | Appointment | Hematology & | B/C, Pod [address] | | | 2019 | | Oncology | [place], | | | | | | [place] [address] | | +--------+ + + + + | 12/12/ | Clinical | | | | | 2018 | Support | | | | | | Staff | | | | +--------+ + + + + | 12/12/ | Office | Hematology & | Taz Mcneal, | | | 2018 | Visit | Oncology | O[place] [address] [facility] | | | | | | [address] | | | | | | [place], [place] | | | | | | [address] | | | | | | [phone] | | | | | | | | +--------+ + + + + | 12/12/ | Appointment | Hematology & | B/C, Pod [address] | | | 2019 | | Oncology | [place], | | | | | | [place] [address] | | +--------+ + + + + [...]
--- OUTSIDE RECORDS SUMMARY | ~2018-11-06 | XMS | Encounter Summary ---
Demographics + + + | Address | [address] | | | [place] [address] | + + + | Home Phone [...] | | | | | [place] [address] | | + + + + + Care Team Providers + +------+ + | Care Library Historian Name | Role | Phone | + [...] | | | | Mailcode: Center | [place], [place] | | | | | [facility] and | [address] | | | | | [facility] | [phone] | | | | | [place], [place] | | | | | | [address] | | | | | | [phone] | | | +--------+ + + + [...] Rd | | | | | | [place] [address] | | +--------+ + + + + | 11/14/ | Office | Hematology & | Taz Mcneal, | | | 2018 | Visit | Oncology | PA-C [address] | | | | | | [address] | | | | | | [place] | | | | | | [address] | | | | | | [phone] | | | | | | | | +--------+ + + + + | 11/14/ | Appointment | Hematology & | B/C, Pod [address] | | | 2018 | | Oncology | [place] | | | | | | [place] [address] | | +--------+ + + + + | 11/28/ | Clinical | | | | | 2018 | Support | | | | | | Staff | | | | +--------+ + + + + | 11/28/ | Office | Hematology & | Taz Mcneal, | | | 2018 | Visit | Oncology | FABIANA-Cindy [address] [facility] | | | | | | [address] | | | | | | [facility] | | | | | | [address] | | | | | | [phone] | | | | | | | | +--------+ + + + + | 11/28/ | Appointment | Hematology & | B/C, Pod [address] | | | 2019 | | Oncology | [place] | | | | | | [place] [address] | | +--------+ + + + + | 12/12/ | Clinical | | | | | 2018 | Support | | | | | | Staff | | | | +--------+ + + + + | 12/12/ | Office | Hematology & | Taz Mcneal, | | | 2018 | Visit | Oncology | OLYA [address] [facility] | | | | | | [address] | | | | | | [place] | | | | | | [address] | | | | | | [phone] | | | | | | | | +--------+ + + + + | 12/12/ | Appointment | Hematology & | B/C, Pod [address] | | | 2018 | | Oncology | [place], | | | | | | [place] [address] | | +--------+ + + + + as of this encounter Visit Diagnoses Not on filein this encounter"
--- OUTSIDE RECORDS SUMMARY | ~2018-11-06 | XMS | Encounter Summary ---
Demographics + + + | Address | [address] | | | [place] [address] | + + + | Home Phone [...] | | | | | [place] [address] | | + + + + + Care Team Providers + +------+ + | Care Accreditation Manager Name | Role | Phone | [...] | | 2019 | | [facility] [place] | ,PhD [address] | management; Test | | | | for Health & Healing | [address] [place], [place] | Results (biopsy. | | | | [address] | [address] | F1?) | | | | Mailcode: [place] | [phone] | | | | | for Health and | | | | | | Healing, [address] | | | | | | [place], [place] | | | | | | [address] | | | | | | [phone] | | | +--------+ + + + [...] | | | | | [place] [address] | | +--------+ + + + + | 11/14/ | Office | Hematology & | Taz Mcneal, | | | 2018 | Visit | Oncology | PA-C [address] | | | | | | [address] | | | | | | [place] | | | | | | [address] | | | | | | [phone] | | | | | | | | +--------+ + + + + | 11/14/ | Appointment | Hematology & | B/C, Pod [address] | | | 2019 | | Oncology | [place] | | | | | | [place] [address] | | +--------+ + + + + | 11/28/ | Clinical | | | | | 2018 | Support | | | | | | Staff | | | | +--------+ + + + + | 11/28/ | Office | Hematology & | Taz Mcneal, | | | 2018 | Visit | Oncology | PA-C [address] [facility] | | | | | | [address] | | | | | | [place] | | | | | | [address] | | | | | | [phone] | | | | | | | | +--------+ + + + + | 11/28/ | Appointment | Hematology & | B/C, Pod [address] | | | 2019 | | Oncology | [place] | | | | | | [place] [address] | | +--------+ + + + + [...] [place] | | | | | | [address] | | | | | | [phone] | | | | | | | | +--------+ + + + + | 12/12/ | Appointment | Hematology & | B/C, Pod [address] | | | 2018 | | Oncology | [place] | | | | | | [place] [address] | | +--------+ + + + + as of this encounter Visit Diagnoses Not on filein this encounter"
--- OUTSIDE RECORDS SUMMARY | ~2018-11-06 | XMS | Encounter Summary ---
Demographics + + + | Address | [address] | | | [place] [address] | + + + | Home Phone [...] | | | | | [place] [address] | | + + + + + Care Team Providers + +------+ + | Care Door Furring Installer Name | Role | Phone | + [...] | | | | quadrant | ,PhD [address]3 | | | | | | abdominal | [address] | | | | | | pain | [place], | | | | | | Continuous | [place] | | | | | | severe | [address] | | | | | | abdominal | Phone: | | | | | | pain | [phone] | | | | | | Pancreatic | Fax: | | | | | | adenocarcino | [phone] | | | | | | ma [...] | 2019 | Visit | [facility] [place] | ,PhD [address] | (HCC) (Primary Dx); | | | | for Health & Healing | [address] [place], [place] | Right upper quadrant | | | | [address] | [address] | abdominal pain; | | | | Mailcode: [place] | [phone] | Continuous severe | | | | for Health and | | abdominal pain; | | | | Healing, [address] | | Pancreatic | | | | [place], [place] | | adenocarcinoma (HCC) | | | | [address] | | | | | | [phone] | | | +--------+---------+ + + + [...] | | | | | [place] [address] | | +--------+ + + + + | 11/14/ | Office | Hematology & | Taz Mcneal, | | | 2018 | Visit | Oncology | PA-C [address] [facility] | | | | | | [address] | | | | | | [place] | | | | | | [address] | | | | | | [phone] | | | | | | | | +--------+ + + + + | 11/14/ | Appointment | Hematology & | B/C, Pod [address] | | | 2019 | | Oncology | [place] | | | | | | [place] [address] | | +--------+ + + + + [...] Rd | | | | | | [place] | | | | | | [address] | | | | | | [phone] | | | | | | | | +--------+ + + + + | 11/28/ | Appointment | Hematology & | B/C, Pod [address] | | | 2018 | | Oncology | [place], | | | | | | [place] [address] | | +--------+ + + + + | 12/12/ | Clinical | | | | | 2018 | Support | | | | | | Staff | | | | +--------+ + + + + | 12/12/ | Office | Hematology & | Taz Mcneal, | | | 2018 | Visit | Oncology | PA-C [address] [facility] | | | | | | [address] | | | | | | [place], [place] | | | | | | [address] | | | | | | [phone] | | | | | | | | +--------+ + + + + | 12/12/ | Appointment | Hematology & | B/C, Pod [address] | | | 2018 | | Oncology | [place], | | | | | | [place] [address] | | +--------+ + + + + [...] | | | were discussed with the residential green building designer on 08/13/2018 at | | | approximately [...] | |These results were discussed with the residential green building designer on 08/13/2018 at approximately 1:45 PM by [...]
--- OUTSIDE RECORDS SUMMARY | ~2018-11-06 | XMS | Encounter Summary ---
Demographics + + + | Address | [address] | | | [place] [address] | + + + | Home Phone [...] | | | | | [place] [address] | | + + + + + Care Team Providers + +------+ + | Care Gettering Filament Machine Operator Name | Role | Phone [...] | | | | quadrant | ,PhD 9943 | | | | | | abdominal | [address] | | | | | | pain | [place], | | | | | | Continuous | [place] | | | | | | severe | [address] | | | | | | abdominal | Phone: | | | | | | pain | [phone] | | | | | | Pancreatic | Fax: | | | | | | adenocarcino | [phone] | | | | | | ma [...] | 2019 | Visit | Oncology at [place] | ,PhD [address] | (HCC) (Primary Dx); | | | | for Health & Healing | [address] [place], [place] | Right upper quadrant | | | | [address] | [address] | abdominal pain; | | | | Mailcode: [place] | [phone] | Continuous severe | | | | for Health and | | abdominal pain; | | | | Healing, [address] | | Pancreatic | | | | [place], [place] | | adenocarcinoma (HCC) | | | | [address] | | | | | | [phone] | | | +--------+---------+ + + + [...] may be different from guillermina posadas original. lEaine Goode is a 72 y.o. Female newly [...] | | | | | [place] [address] | | +--------+ + + + + | 11/14/ | Office | Hematology & | Taz Mcneal, | | | 2018 | Visit | Oncology | PA-C [address] [facility] | | | | | | [address] | | | | | | [place] | | | | | | [address] | | | | | | [phone] | | | | | | | | +--------+ + + + + | 11/14/ | Appointment | Hematology & | B/C, Pod [address] | | | 2019 | | Oncology | [place] | | | | | | [place] [address] | | +--------+ + + + + [...] Rd | | | | | | [place] | | | | | | [address] | | | | | | [phone] | | | | | | | | +--------+ + + + + | 11/28/ | Appointment | Hematology & | B/C, Pod [address] | | | 2018 | | Oncology | [place], | | | | | | [place] [address] | | +--------+ + + + + | 12/12/ | Clinical | | | | | 2018 | Support | | | | | | Staff | | | | +--------+ + + + + | 12/12/ | Office | Hematology & | Taz Mcneal, | | | 2018 | Visit | Oncology | PA-C [address] [facility] | | | | | | [address] | | | | | | [place], [place] | | | | | | [address] | | | | | | [phone] | | | | | | | | +--------+ + + + + | 12/12/ | Appointment | Hematology & | B/C, Pod [address] | | | 2018 | | Oncology | [place], | | | | | | [place] [address] | | +--------+ + + + + [...] | | were discussed with the residential direct support professional on 08/13/2018 at | | | approximately [...] |These results were discussed with the residential direct support professional on 08/13/2018 at approximately 1:45 PM by [...]
--- OUTSIDE RECORDS SUMMARY | ~2018-11-06 | XMS | Encounter Summary ---
Demographics + + + | Address | [address] | | | [place] [address] | + + + | Home Phone [...] | | | | | [place] [address] | | + + + + + Care Team Providers + +------+ + | Care Program Management Manager Name | Role | Phone [...] | 2019 | on | [facility] [place] | ,PhD [address] | (gemcitabine, | | | | for Health & Healing | [address] [place], [place] | Abraxane) | | | | [address] | [address] | | | | | Mailcode: [place] | [phone] | | | | | for Health and | | | | | | Healing, [address] | | | | | | [place], [place] | | | | | | [address] | | | | | | [phone] | | | +--------+ + + + [...] | | | | | [place] [address] | | +--------+ + + + + | 11/14/ | Office | Hematology & | Taz Mcneal, | | | 2018 | Visit | Oncology | PA-C [address] | | | | | | [address] | | | | | | [place] | | | | | | [address] | | | | | | [phone] | | | | | | | | +--------+ + + + + | 11/14/ | Appointment | Hematology & | B/C, Pod [address] | | | 2019 | | Oncology | [place] | | | | | | [place] [address] | | +--------+ + + + + | 11/28/ | Clinical | | | | | 2019 | Support | | | | | | Staff | | | | +--------+ + + + + | 11/28/ | Office | Hematology & | Taz Mcneal, | | | 2018 | Visit | Oncology | PA-C [address] [facility] | | | | | | [address] | | | | | | [place] | | | | | | [address] | | | | | | [phone] | | | | | | | | +--------+ + + + + | 11/28/ | Appointment | Hematology & | B/C, Pod [address] | | | 2019 | | Oncology | [place] | | | | | | [place] [address] | | +--------+ + + + + [...] [place] | | | | | | [address] | | | | | | [phone] | | | | | | | | +--------+ + + + + | 12/12/ | Appointment | Hematology & | B/C, Pod [address] | | | 2018 | | Oncology | [place] | | | | | | [place] [address] | | +--------+ + + + + as of this encounter Visit Diagnoses Not on filein this encounter"
--- OUTSIDE RECORDS SUMMARY | ~2018-11-06 | XMS | Encounter Summary ---
Demographics + + + | Address | [address] | | | [place] [address] | + + + | Home Phone [...] | | | | | [place] [address] | | + + + + + Care Team Providers + +------+ + | Care Qa Software Tester Name | Role | Phone | [...] | | | | | Liver | [place], | [place], [place] | | | | | metastases | [place] | [address] | | | | | (HCC) | [address] | Phone: | | | | | Procedures | Phone: | [phone] | | | | | CONSULT TO | [phone] | Fax: | | | | | ADULT OUTPT | Fax: | [phone] | | | | | SUPPORTIVE | [phone] | | | | | | ONCOLOGY/PAL [...] | 2019 | on | [facility]cology at [place] | ,PhD [address] | | | | | for Health & Healing | [address] [place], [place] | | | | | [address] | [address] | | | | | Mailcode: [place] | [phone] | | | | | for Health and | | | | | | [facility] | | | | | | [place], [place] | | | | | | [address] | | | | | | [phone] | | | +--------+ + + + [...] | | | | | [place] [address] | | +--------+ + + + + | 11/14/ | Office | Hematology & | Taz Mcneal, | | | 2018 | Visit | Oncology | OLYA [address] | | | | | | [address] | | | | | | [place] | | | | | | [address] | | | | | | [phone] | | | | | | | | +--------+ + + + + | 11/14/ | Appointment | Hematology & | B/C, Pod [address] | | | 2019 | | Oncology | [place], | | | | | | [place] [address] | | +--------+ + + + + [...] [place] | | | | | | [address] | | | | | | [phone] | | | | | | | | +--------+ + + + + | 11/28/ | Appointment | Hematology & | B/C, [address] | | | 2018 | | Oncology | [place], | | | | | | [place] [address] | | +--------+ + + + + [...] | | | | | | [place], [place] | | | | | | [address] | | | | | | [phone] | | | | | | | | +--------+ + + + + | 12/12/ | Appointment | Hematology & | B/C, [address] | | | 2018 | | Oncology | [place], | | | | | | [place] [address] | | +--------+ + + + + as of this encounter Visit Diagnoses + + | Diagnosis | + + | Pancreatic adenocarcinoma (HCC) - Primary | + + | Malignant neoplasm of pancreas, part unspecified | + + | Liver metastases (HCC) | + + | Secondary malignant neoplasm of liver | + +"
--- OUTSIDE RECORDS SUMMARY | ~2018-11-06 | XMS | Encounter Summary ---
Demographics + + + | Address | [address] | | | [place] [address] | + + + | Home Phone [...] | | | | | [place] [address] | | + + + + + Care Team Providers + +------+ + | Care Delicatessen Slicer Name | Role | Phone | + [...] | 2019 | on | Oncology at [place] | ,PhD [address] | (apixaban) | | | | for Health & Healing | [address] [place], [place] | | | | | [address] | [address] | | | | | Mailcode: [place] | [phone] | | | | | for Health and | | | | | | Healing, [address] | | | | | | [place], [place] | | | | | | [address] | | | | | | [phone] | | | +--------+ + + + [...] [address] | | | | | | [place] [address] | | +--------+ + + + + | 11/14/ | Office | Hematology & | Taz Mcneal, | | | 2018 | Visit | Oncology | PA-C [address] | | | | | | [address] | | | | | | [place] | | | | | | [address] | | | | | | [phone] | | | | | | | | +--------+ + + + + | 11/14/ | Appointment | Hematology & | B/C, Pod [address] | | | 2019 | | Oncology | [place] | | | | | | [place] [address] | | +--------+ + + + + | 11/28/ | Clinical | | | | | 2019 | Support | | | | | | Staff | | | | +--------+ + + + + | 11/28/ | Office | Hematology & | Taz Mcneal, | | | 2018 | Visit | Oncology | PACristi [address] [facility] | | | | | | [address] | | | | | | [place] | | | | | | [address] | | | | | | [phone] | | | | | | | | +--------+ + + + + | 11/28/ | Appointment | Hematology & | B/C, Pod [address] | | | 2018 | | Oncology | [place] | | | | | | [place] [address] | | +--------+ + + + + [...] [address] | | | | | | [place], [place] | | | | | | [address] | | | | | | [phone] | | | | | | | | +--------+ + + + + | 12/12/ | Appointment | Hematology & | B/C, Pod [address] | | | 2018 | | Oncology | [place], | | | | | | [place] [address] | | +--------+ + + + + [...]
--- OUTSIDE RECORDS SUMMARY | ~2018-11-06 | XMS | Encounter Summary ---
Demographics + + + | Address | [address] | | | [place] [address] | + + + | Home Phone [...] | | | | | [place] [address] | | + + + + + Care Team Providers + +------+ + | Care Road Supervisor Of Engines Name | Role | Phone | + +------+ + | Piotr Plummer MD | PCP | | + +------+ + Encounter Details +--------+ + + + + | Date | Type | Department | Care Team | Description | +--------+ + + + + | 08/28/ | Carbon Furnace Operator Helper | Hematology/Medical | Toni Mccrary, | | | 2019 | | Oncology at [place] | ,PhD [address] | | | | | for Health & Healing | [place], [place] | | | | | [address] | [address] | | | | | Mailcode: [place] | [phone] | | | | | for Health and | | | | | | Healing, [address] | | | | | | [place], [place] | | | | | | [address] | | | | | | [phone] | | | +--------+ + + + [...] Rd | | | | | | [place] [address] | | +--------+ + + + + | 11/14/ | Office | Hematology & | Taz Mcneal, | | | 2019 | Visit | Oncology | FABIANA-Cindy [address] | | | | | | [address] | | | | | | [facility] [place] | | | | | | [address] | | | | | | [phone] | | | | | | | | +--------+ + + + + | 11/14/ | Appointment | Hematology & | B/C, Pod [address] | | | 2019 | | Oncology | [place], | | | | | | [place] [address] | | +--------+ + + + + [...] [place] | | | | | | [address] | | | | | | [phone] | | | | | | | | +--------+ + + + + | 11/28/ | Appointment | Hematology & | B/C, Pod [address] | | | 2019 | | Oncology | [place], | | | | | | [place] [address] | | +--------+ + + + + [...] Rd | | | | | | [place], [place] | | | | | | [address] | | | | | | [phone] | | | | | | | | +--------+ + + + + | 12/12/ | Appointment | Hematology & | B/C, Pod [address] | | | 2019 | | Oncology | [place], | | | | | | [place] [address] | | +--------+ + + + + as of this encounter Visit Diagnoses Not on filein this encounter"
--- OUTSIDE RECORDS SUMMARY | ~2018-11-06 | XMS | Encounter Summary ---
Demographics + + + | Address | [address] | | | [place] [address] | + + + | Home Phone [...] + + + | Author | [facility] | + + + | Organization | [facility] | + + + | Address | Unknown | + + + | Phone | Unavailable | + + + Support + + + + + | Name | Relationship | Address | Phone | + + + + + | ELSA GOODE | ECON | [address] | | | | | [place] [address] | | + + + + + Care Team Providers + +------+ + | Care Mechanical System Technician Name | Role | Phone | + +------+ + | Piotr Plummer MD | PCP | | + +------+ + Reason for Visit + + + | Reason | Comments | + + + | Telephone follow-up | 10/23/18 | + + + Encounter Details +--------+ + + + + | Date | Type | Department | Care Team | Description | +--------+ + + + + | 10/24/ | Telephone | Endoscopic | Nisha Porter | Telephone follow-up | | 2019 | | Procedural Unit at | MD Kiet [address] | (10/23/18) | | | | Jasiel Patoka [address] | [facility] | | | | | [facility] | [place], [place] | | | | | Road Mailcode: | [address] | | | | | [address] | [phone] | | | | | [address] | | | | | | [place], [place] | | | | | | [address] | | | | | | [phone] | | | +--------+ + + + [...] | | | | | [place] [address] | | +--------+ + + + + | 11/14/ | Office | Hematology & | Taz Mcneal, | | | 2018 | Visit | Oncology | PA-C [address] | | | | | | [address] | | | | | | [place] | | | | | | [address] | | | | | | [phone] | | | | | | | | +--------+ + + + + | 11/14/ | Appointment | Hematology & | B/C, Pod [address] | | | 2019 | | Oncology | [place] | | | | | | [place] [address] | | +--------+ + + + + | 11/28/ | Clinical | | | | | 2018 | Support | | | | | | Staff | | | | +--------+ + + + + | 11/28/ | Office | Hematology & | Taz Mcneal, | | | 2018 | Visit | Oncology | PA-Cindy [address] [facility] | | | | | | [address] | | | | | | [place] | | | | | | [address] | | | | | | [phone] | | | | | | | | +--------+ + + + + | 11/28/ | Appointment | Hematology & | B/C, Pod [address] | | | 2019 | | Oncology | [place] | | | | | | [place] [address] | | +--------+ + + + + | 12/12/ | Clinical | | | | | 2018 | Support | | | | | | Staff | | | | +--------+ + + + + | 12/12/ | Office | Hematology & | Taz Mcneal, | | | 2018 | Visit | Oncology | OLYA [address] [facility] | | | | | | [address] | | | | | | [place] | | | | | | [address] | | | | | | [phone] | | | | | | | | +--------+ + + + + | 12/12/ | Appointment | Hematology & | B/C, Pod [address] | | | 2018 | | Oncology | [place], | | | | | | [place] [address] | | +--------+ + + + + as of this encounter Visit Diagnoses Not on filein this encounter"
--- OUTSIDE RECORDS SUMMARY | ~2018-11-06 | XMS | Encounter Summary ---
Demographics + + + | Address | [address] | | | [place] [address] | + + + | Home Phone | | + + + | Preferred Language | Unknown | + + + | Marital Status | | + + + | Uatsdin Affiliation | NRP | + + + [...] | | | | | [place] [address] | | + + + + + Care Team Providers + +------+ + | Care Loan Interviewer Mortgage Name | Role | Phone | + [...] | 2019 | on | [facility]cology at [place] | ,PhD [address] | xT) | | | | for Health & Healing | Ave [place], [place] | | | | | [address] | [address] | | | | | Mailcode: [place] | [phone] | | | | | for Health and | | | | | | Healing, [address] | | | | | | [place], [place] | | | | | | [address] | | | | | | [phone] | | | +--------+ + + + [...] [address] | | | | | | [place] [address] | | +--------+ + + + + | 11/14/ | Office | Hematology & | Taz Mcneal, | | | 2018 | Visit | Oncology | PA-C [address] | | | | | | [address] | | | | | | [place], [place] | | | | | | [address] | | | | | | [phone] | | | | | | | | +--------+ + + + + | 11/14/ | Appointment | Hematology & | B/C, Pod [address] | | | 2019 | | Oncology | [place], | | | | | | [place] [address] | | +--------+ + + + + | 11/28/ | Clinical | | | | | 2019 | Support | | | | | | Staff | | | | +--------+ + + + + | 11/28/ | Office | Hematology & | Taz Mcneal, | | | 2018 | Visit | Oncology | OLYA [address] [facility] | | | | | | [address] | | | | | | [facility] | | | | | | [address] | | | | | | [phone] | | | | | | | | +--------+ + + + + | 11/28/ | Appointment | Hematology & | B/C, Pod [address] | | | 2018 | | Oncology | [place] | | | | | | [place] [address] | | +--------+ + + + + | 12/12/ | Clinical | | | | | 2018 | Support | | | | | | Staff | | | | +--------+ + + + + | 12/12/ | Office | Hematology & | Taz Mcneal, | | | 2019 | Visit | Oncology | OLYA [address] [facility] | | | | | | [address] | | | | | | [place] | | | | | | [address] | | | | | | [phone] | | | | | | | | +--------+ + + + + | 12/12/ | Appointment | Hematology & | B/C, Pod [address] | | | 2019 | | Oncology | [place], | | | | | | [place] [address] | | +--------+ + + + + as of this encounter Visit Diagnoses Not on filein this encounter"
--- OUTSIDE RECORDS SUMMARY | ~2018-11-06 | XMS | Encounter Summary ---
Demographics + + + | Address | [address] | | | [place] [address] | + + + | Home Phone [...] | | | | | [place] [address] | | + + + + + Care Team Providers + +------+ + | Care School Year Nanny Name | Role | Phone | + [...] | adenocarcino | [address] | [facility] | | | | | makeda ([facility]) | [facility] | Road | | | | | Procedures | Rd | Mailcode: | | | | | IR PORT | [place], [place] | [address] | | | | | PROCEDURE | [id number] | [facility] | | | | | RI INSERT | Phone: | Hospital | | | | | GAETANO CV | [phone] | [facility] | | | | | CATH,W SQ | Fax: | [place], [place] | | | | | PORT,>5 Y/O | [phone] | [address] | | | | | | | Phone: | | | | | | | [phone] | | | | | | | Fax: | | | | | | | [phone] | +--------+--------+ + + + + PROC [...] | adenocarcino | [address] | [facility] | | | | | makeda ([facility]) | [facility] | Road | | | | | Procedures | Rd | Mailcode: | | | | | IR PORT | [place], [place] | [address] | | | | | PROCEDURE | [id number] | [facility] | | | | | RI INSERT | Phone: | Hospital | | | | | GAETANO CV | [phone] | [facility] | | | | | Zi RENEE SQ | Fax: | [place], [place] | | | | | PORT,>5 Y/O | [phone] | [address] | | | | | | | Phone: | | | | | | | [phone] | | | | | | | Fax: | | | | | | | [phone] | +--------+--------+ + + + + Reason [...] + + | 08/28/ | Hospital | [address] | Maykel Santacruz MD | | | 2019 | Encounter | [facility] | [address] [facility] | | | | | [address] [place] [address] | [facility] | | | | | [place] [address] | [place], [place] | | | | | [phone] | [address] | | | | | | [phone] | | | | | | | [...] or on weekends contact the ranjit minaya montessori paraprofessional for your doctor, or call and ask to speak to the [facility] Radiology Fellow montessori paraprofessional. When the port is not in use, [...] the imaging tab in Epic. Varsha TASH [facility]CO[facility] Varsha Chasidyconstance, TASHJaime Varsha Avalos [facility] - 08/28/2018 9:51 AM PSTINTERVENTIONAL RADIOLOGY [...] in control. VarshaLORY Dietrich, LORY UmañaVarsha nolasco [facility] - 08/27/2018 9:17 PM PSTFormatting of [...] mouth twice daily as needed. ) Fish Oil-C[place]ichaels-3 Fatty Acids 340-1,000 mg oral capsule Take [...] INRPT 1.08 08/22/2018 Imaging: reviewed Varsha Avalos [facility] TASH [facility]ielCO[facility] PRE-SEDATION EVALUATION ADVERSE DRUG REACTIONS: No [...] mouth twice daily as needed. ) Fish Oil-C[place]ichaels-3 Fatty Acids 340-1,000 mg oral capsule Take [...] | [address] | | | 2018 | | Oncology | [address] | | | | | | [place] [address] | | +--------+ + + + + | 11/14/ | Office | Hematology & | Taz Mcneal, | | | 2018 | Visit | Oncology | PA-C [address] | | | | | | [address] | | | | | | [facility] [place] | | | | | | [address] | | | | | | [phone] | | | | | | | | +--------+ + + + + | 11/14/ | Appointment | Hematology & | B/C, Pod [address] | | | 2019 | | Oncology | [place] | | | | | | [place] [address] | | +--------+ + + + + [...] [place] | | | | | | [address] | | | | | | [phone] | | | | | | | | +--------+ + + + + | 11/28/ | Appointment | Hematology & | B/C, Pod [address] | | | 2018 | | Oncology | [place] | | | | | | [place] [address] | | +--------+ + + + + | 12/12/ | Clinical | | | | | 2019 | Support | | | | | | Staff | | | | +--------+ + + + + | 12/12/ | Office | Hematology & | Taz Mcneal, | | | 2018 | Visit | Oncology | PA-Cindy [address] | | | | | | [address] | | | | | | [place], [place] | | | | | | [address] | | | | | | [phone] | | | | | | | | +--------+ + + + + | 12/12/ | Appointment | Hematology & | B/C, Pod [address] | | | 2018 | | Oncology | [place], | | | | | | [place] [address] | | +--------+ + + + + [...] new port | [facility] | | PRIMARY JAVASCRIPT DEVELOPER: Varsha Avalos MD ANGIOGRAPHY ATTENDING: | RADIOLOGY [...] tip of the indwelling Port-A-Cath. A 5 Djiboutian | | | dilator was inserted and [...] exchanged for an 8 | | | Djiboutian peel-away sheath. The new catheter was advanced [...] report as now presented. Final signature: Maykel Santacruz, | | | 08/29/2018 6:01 PM Preliminary: Maykel Santacruz MD | | | Dictation initiated: Maykel Santacruz MD 08/29/2018 5:41 PM | | + + + + + | Procedure Note | + + | Service Account, Radiant Res In Interface - 08/29/2018 6:02 PM PST PROCEDURE: | | Removal of right chest port with placement of new port PRIMARY JAVASCRIPT DEVELOPER: Varsha | | MD Robbie ANGIOGRAPHY ATTENDING: [...] tip of the indwelling Port-A-Cath. A 5 Djiboutian dilator was | | inserted and advanced [...] was | | exchanged for an 8 Djiboutian peel-away sheath. The new catheter was advanced [...] Until 08/28/18 at 1810, | | | 1st [...] 12 HOURS NEEDED, | | | Starting Mon08/28/18 at 0953, | | | Until Mon08/28/18 at 1810, | | | nausea/vomiting not responding to | | | ondansetron and unable to take | | | oral prochlorperazine | | + +---+ | | | + +---+ in this encounter
--- OUTSIDE RECORDS SUMMARY | ~2018-11-06 | XMS | Encounter Summary ---
Demographics + + + | Address | [address] | | | [place] [address] | + + + | Home Phone [...] | | | | | [place] [address] | | + + + + + Care Team Providers + +------+ + | Care Pool Hall Inspector Name | Role | Phone | + +------+ + | Piotr Plummer MD | PCP | | + +------+ + Encounter Details +--------+ + + + + | Date | Type | Department | Care Team | Description | +--------+ + + + + | 08/09/ | Radial Router Operator | Hematology | Toni Mccrary, | Pancreatic | | 2019 | | Oncology Study [address] | ,PhD [address] | adenocarcinoma (HCC) | | | | [address] | [place], [place] | (Primary Dx) | | | | Mailcode: CH7M | [address] | | | | | [facility] | [phone] | | | | | and | | | | | | Floor [place], [place] | | | | | | [address] | | | | | | [phone] | | | +--------+ + + + [...] Rd | | | | | | [place] [address] | | +--------+ + + + + | 11/14/ | Office | Hematology & | Taz Mcneal, | | | 2018 | Visit | Oncology | OLYA [address] [facility] | | | | | | [address] | | | | | | [place], [place] | | | | | | [address] | | | | | | [phone] | | | | | | | | +--------+ + + + + | 11/14/ | Appointment | Hematology & | B/C, Pod [address] | | | 2018 | | Oncology | [place], | | | | | | [place] [address] | | +--------+ + + + + [...] Rd | | | | | | [place], [place] | | | | | | [address] | | | | | | [phone] | | | | | | | | +--------+ + + + + | 11/28/ | Appointment | Hematology & | B/C, Pod [address] | | | 2018 | | Oncology | [place], | | | | | | [place] [address] | | +--------+ + + + + [...] Rd | | | | | | [place], [place] | | | | | | [address] | | | | | | [phone] | | | | | | | | +--------+ + + + + | 12/12/ | Appointment | Hematology & | B/C, Pod [address] | | | 2019 | | Oncology | [place], | | | | | | [place] [address] | | +--------+ + + + + [...]
--- OUTSIDE RECORDS SUMMARY | ~2018-11-06 | XMS | Encounter Summary ---
Demographics + + + | Address | [address] | | | [place] [address] | + + + | Home Phone [...] | | | | | [place] [address] | | + + + + + Care Team Providers + +------+ + | Care Machining Engineer Name | Role | Phone | [...] | 08/13/ | Lab | Laboratory at [facility] | | Pancreatic | | 2019 | | [address] | | adenocarcinoma (HCC) | | | | [place], [place] | | | | | | [address] | | | | | | [phone] | | | +--------+------+ + + + [...] | | | | | [place] [address] | | +--------+ + + + + | 11/14/ | Office | Hematology & | Taz Mcneal, | | | 2018 | Visit | Oncology | PA-C [address] | | | | | | [address] | | | | | | [place] | | | | | | [address] | | | | | | [phone] | | | | | | | | +--------+ + + + + | 11/14/ | Appointment | Hematology & | B/C, Pod [address] | | | 2019 | | Oncology | [place] | | | | | | [place] [address] | | +--------+ + + + + | 11/28/ | Clinical | | | | | 2018 | Support | | | | | | Staff | | | | +--------+ + + + + | 11/28/ | Office | Hematology & | Taz Mcneal, | | | 2018 | Visit | Oncology | PA-Cindy [address] [facility] | | | | | | [address] | | | | | | [place] | | | | | | [address] | | | | | | [phone] | | | | | | | | +--------+ + + + + | 11/28/ | Appointment | Hematology & | B/C, Pod [address] | | | 2019 | | Oncology | [place] | | | | | | [place] [address] | | +--------+ + + + + | 12/12/ | Clinical | | | | | 2018 | Support | | | | | | Staff | | | | +--------+ + + + + | 12/12/ | Office | Hematology & | Taz Mcneal, | | | 2018 | Visit | Oncology | PA-C [address] [facility] | | | | | | [address] | | | | | | [place], [place] | | | | | | [address] | | | | | | [phone] | | | | | | | | +--------+ + + + + | 12/12/ | Appointment | Hematology & | B/C, Pod [address] | | | 2018 | | Oncology | [place], | | | | | | [place] [address] | | +--------+ + + + + [...] | 3.50 - 10.80 K/cu mm | [facility] | | | | | [...] 13.9 | 12.0 - 16.0 g/dL | [facility] | | | | | SERVICES, [...] LABORATORY | [address] | [place] [address] | | | [facility] | | | | | HEALTH + [...] LABORATORY | | [facility] | | | [facility] | + + + + + + + | Specimen | + + | Blood - Blood | + + + + + + + | Performing | Address | City/State/Zipcode | Phone Number | | Organization | | | | + + + + + | [facility] | [address] | [place] [address] | | | SERVICES, CORE | JOLIE [...] (L) | 97 - 108 mmol/L | [facility] | | (LAB) | | | SERVICES, | | | | | [facility] | | [facility] + | | | | | [facility] | + +---------+ + + | TOTAL CO2, PLASMA | 31 (H) | 22 - 29 mmol/L | [facility] | | (LAB) | | | SERVICES, | | | | | [facility] | | | | | [facility] + | | | | | HEALING | + +---------+ + + | CALCIUM, PLASMA | 10.1 | 8.6 - 10.2 mg/dL | [facility] | | (LAB) | | | [...] | + + + + + | [facility] | [address] | [place] [address] | | | SERVICES, [place] [facility] | | | | | HEALTH [...] 1.021Comment: Specific | 1.005 - 1.030 | [facility] | | | [place] performed by | | VALERI, CORE | [...] KARL OUMAR | [address] | [place] [address] | | | SERVICES, CORE | [address] | | | + + + + + in this encounter Visit Diagnoses + + | Diagnosis | + + | Pancreatic adenocarcinoma (HCC) | + + | Malignant neoplasm of pancreas, part unspecified | + +"
--- OUTSIDE RECORDS SUMMARY | ~2018-11-06 | XMS | Encounter Summary ---
Demographics + + + | Address | [address] | | | [place] [address] | + + + | Home Phone [...] | | | | | [place] [address] | | + + + + + Care Team Providers + +------+ + | Care Lime Sludge Kiln Operator Name | Role | Phone | [...] | 2019 | Visit | Oncology at [place] | M[address],ACHPN [address] | adenocarcinoma (HCC) | | | | [facility] | [facility] [address] | (Primary Dx); | | | | [address] | [place], [place] | Abdominal bloating | | | | Mailcode: [place] | [address] | with cramps; | | | | for Health and | [phone] | Pancreatic | | | | [facility] | | insufficiency; | | | | [place], [place] | | Advanced care | | | | [address] | | planning/counseling | | | | [phone] | | discussion | +--------+---------+ + + [...] Dr. Winchester. Other resources [facility] [place] and [facility] For pancreatic enzymes: will [...] with meals and snacks - dicussed with casket coverer who agrees with trial of creon. She [...] Luisa Hayes M.D. Internal Medicine PGY-3 Pager [phone] Subjective/Objective: Elaine presents with her Elsa. (1) [...] Elsa. 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 2 ad ult daughter, oldest expecting first grandchild. Other daughter in [employer] getting PhD. Pertinent Medical History: Cataracts GERD [...] as needed. ), Disp: , Rfl: Fish Oil-[place]-3 Fatty Acids 340-1,000 mg oral capsule, Take [...] Luisa Hayes M.D. Internal Medicine PGY-3 Pager [phone] in this encounter Plan of Treatment +--------+ + + + + | Date | Type | Specialty | Care Team | Description | +--------+ + + + + | 11/14/ | Appointment | Hematology & | Moustapha Sher | | | 2019 | | Oncology | [address] | | | | | | [place] [address] | | +--------+ + + + + | 11/14/ | Office | Hematology & | Taz Mcneal, | | | 2018 | Visit | Oncology | OLYA [address] | | | | | | [address] | | | | | | [place], [place] | | | | | | [address] | | | | | | [phone] | | | | | | | | +--------+ + + + + | 11/14/ | Appointment | Hematology & | B/C, Pod [address] | | | 2019 | | Oncology | [place], | | | | | | [place] [address] | | +--------+ + + + + | 11/28/ | Clinical | | | | | 2018 | Support | | | | | | Staff | | | | +--------+ + + + + | 11/28/ | Office | Hematology & | Taz Mcneal, | | | 2018 | Visit | Oncology | PA-C [address] | | | | | | [address] | | | | | | [facility] | | | | | | [address] | | | | | | [phone] | | | | | | | | +--------+ + + + + | 11/28/ | Appointment | Hematology & | B/C, [address] | | | 2019 | | Oncology | [place] | | | | | | [place] [address] | | +--------+ + + + + | 12/12/ | Clinical | | | | | 2018 | Support | | | | | | Staff | | | | +--------+ + + + + | 12/12/ | Office | Hematology & | Taz Mcneal, | | | 2018 | Visit | Oncology | [facility] [address] [facility] | | | | | | [address] | | | | | | [place] | | | | | | [address] | | | | | | [phone] | | | | | | | | +--------+ + + + + | 12/12/ | Appointment | Hematology & | B/C, [address] | | | 2019 | | Oncology | [place] | | | | | | [place] [address] | | +--------+ + + + + [...]
--- OUTSIDE RECORDS SUMMARY | ~2018-11-06 | XMS | Encounter Summary ---
Demographics + + + | Address | [address] | | | [place] [address] | + + + | Home Phone [...] | | | | | [place] [address] | | + + + + + Care Team Providers + +------+ + | Care Supervising Editor Trailer Name | Role | Phone | + [...] | | 2019 | | [facility] | ,PhD [address] | (IV hydration twice | | | | for Health & Healing | [place], [place] | weekly / ); Urine | | | | [address] | [address] | Results | | | | Mailcode: [place] | [phone] | | | | | for Health and | | | | | | Healing, [address] | | | | | | [place], [place] | | | | | | [address] | | | | | | [phone] | | | +--------+ + + + [...] Rd | | | | | | [place] [address] | | +--------+ + + + + | 11/14/ | Office | Hematology & | Taz Mcneal, | | | 2019 | Visit | Oncology | PAL[address] [address] | | | | | | [address] | | | | | | [place], [place] | | | | | | [address] | | | | | | [phone] | | | | | | | | +--------+ + + + + | 11/14/ | Appointment | Hematology & | B/C, Pod [address] | | | 2018 | | Oncology | [place], | | | | | | [place] [address] | | +--------+ + + + + [...] [place] | | | | | | [address] | | | | | | [phone] | | | | | | | | +--------+ + + + + | 11/28/ | Appointment | Hematology & | B/C, Pod [address] | | | 2019 | | Oncology | [place] | | | | | | [place] [address] | | +--------+ + + + + [...] [place] | | | | | | [address] | | | | | | [phone] | | | | | | | | +--------+ + + + + | 12/12/ | Appointment | Hematology & | B/C, Pod [address] | | | 2019 | | Oncology | [place] | | | | | | [place] [address] | | +--------+ + + + + as of this encounter Visit Diagnoses Not on filein this encounter"
--- OUTSIDE RECORDS SUMMARY | ~2018-11-06 | XMS | Encounter Summary ---
Demographics + + + | Address | [address] | | | [place] [address] | + + + | Home Phone [...] | | | | | [place] [address] | | + + + + + Care Team Providers + +------+ + | Care Hoop Punch Operator Helper Name | Role | Phone | [...] | 2019 | on | [facility] | | (social work) | | | | for Health & Healing | | | | | | [address] | | | | | | Mailcode: [place] | | | | | | for Health and | | | | | | [facility], [address] [address] | | | | | | [place], [place] | | | | | | [address] | | | | | | [phone] | | | +--------+ + + + [...] [address] | | | | | | [place] [address] | | +--------+ + + + + | 11/14/ | Office | Hematology & | Taz Mcneal, | | | 2018 | Visit | Oncology | PA-C [address] | | | | | | [address] | | | | | | [place], [place] | | | | | | [address] | | | | | | [phone] | | | | | | | | +--------+ + + + + | 11/14/ | Appointment | Hematology & | B/C, Pod [address] | | | 2018 | | Oncology | [place] | | | | | | [place] [address] | | +--------+ + + + + [...] Rd | | | | | | [place], [place] | | | | | | [address] | | | | | | [phone] | | | | | | | | +--------+ + + + + | 11/28/ | Appointment | Hematology & | B/C, Pod [address] | | | 2018 | | Oncology | [place], | | | | | | [place] [address] | | +--------+ + + + + [...] [place] | | | | | | [address] | | | | | | [phone] | | | | | | | | +--------+ + + + + | 12/12/ | Appointment | Hematology & | B/C, Pod [address] | | | 2019 | | Oncology | [place], | | | | | | [place] [address] | | +--------+ + + + + as of this encounter Visit Diagnoses Not on filein this encounter"
--- OUTSIDE RECORDS SUMMARY | ~2018-11-06 | XMS | Encounter Summary ---
Demographics + + + | Address | [address] | | | [place] [address] | + + + | Home Phone [...] | | | | | [place] [address] | | + + + + + Care Team Providers + +------+ + | Care Line Ordering Clinician Name | Role | Phone | + +------+ + | Piotr Plummer MD | PCP | | + +------+ + Encounter Details +--------+ + + + + | Date | Type | Department | Care Team | Description | +--------+ + + + + | 08/22/ | [facility] | Hematology/Medical | Toni Mccrary, | Pancreatic | | 2019 | | [facility] | ,PhD [address] | adenocarcinoma (HCC) | | | | for Health & Healing | [place], [place] | (Primary Dx); Liver | | | | [address] | [address] | metastases (HCC) | | | | Mailcode: [place] | [phone] | | | | | for Health and | | | | | | [facility], [place] [address] [address] | | | | | | [place], [place] | | | | | | [address] | | | | | | [phone] | | | +--------+ + + + [...] Rd | | | | | | [place] [address] | | +--------+ + + + + | 11/14/ | Office | Hematology & | Taz Mcneal, | | | 2019 | Visit | Oncology | PA-C [address] | | | | | | [address] | | | | | | [place], [place] | | | | | | [address] | | | | | | [phone] | | | | | | | | +--------+ + + + + | 11/14/ | Appointment | Hematology & | B/C, Pod [address] | | | 2019 | | Oncology | [place] | | | | | | [place] [address] | | +--------+ + + + + [...] Rd | | | | | | [place], [place] | | | | | | [address] | | | | | | [phone] | | | | | | | | +--------+ + + + + | 11/28/ | Appointment | Hematology & | B/C, Pod [address] | | | 2018 | | Oncology | [place], | | | | | | [place] [address] | | +--------+ + + + + [...] Rd | | | | | | [facility], [place] | | | | | | [address] | | | | | | [phone] | | | | | | | | +--------+ + + + + | 12/12/ | Appointment | Hematology & | B/C, [address] | | | 2018 | | Oncology | [place], | | | | | | [place] [address] | | +--------+ + + + + [...] Note | + + | Service Account, [employer] Res In Interface - 08/22/2018 3:01 PM [...]
--- OUTSIDE RECORDS SUMMARY | ~2018-11-06 | XMS | Encounter Summary ---
Demographics + + + | Address | [address] | | | [place] [address] | + + + | Home Phone [...] | | | | | [place] [address] | | + + + + + Care Team Providers + +------+ + | Care Material Dispatcher Name | Role | Phone | + +------+ + | Piotr Plmumer MD | PCP | | + +------+ [...] | | | | adenocarcino | ,PhD [address] | | | | | | ma (HCC) | [address] | | | | | | Liver | [place], | | | | | | metastases | [place] | | | | | | (HCC) | [address] | | | | | | Procedures | Phone: | | | | | | CT CHEST, | [phone] | | | | | | ABDOMEN AND | Fax: | | | | | | PELVIS W IV | [phone] | | | | | | CONTRAST | | | + +--------+ + + + + Encounter Details +--------+ + + + + | Date | Type | Department | Care Team | Description | +--------+ + + + + | 10/16/ | Emergency Man | Hematology/Medical | Toni Mccrary, | Pancreatic | | 2019 | | [facility] [place] | ,PhD [address] | adenocarcinoma (HCC) | | | | for Health & Healing | [address] [place], [place] | (Primary Dx); Liver | | | | [address] | [address] | metastases (HCC) | | | | Mailcode: [place] | [phone] | | | | | for Health and | | | | | | Healing, [address] | | | | | | [place], [place] | | | | | | [address] | | | | | | [phone] | | | +--------+ + + + [...] | | | | | [place] [address] | | +--------+ + + + + | 11/14/ | Office | Hematology & | Taz Mcneal, | | | 2018 | Visit | Oncology | PA-C [address] | | | | | | [address] | | | | | | [place], [place] | | | | | | [address] | | | | | | [phone] | | | | | | | | +--------+ + + + + | 11/14/ | Appointment | Hematology & | B/C, Pod [address] | | | 2018 | | Oncology | [place], | | | | | | [place] [address] | | +--------+ + + + + [...] Rd | | | | | | [facility], [place] | | | | | | [address] | | | | | | [phone] | | | | | | | | +--------+ + + + + | 11/28/ | Appointment | Hematology & | B/C, Pod [address] | | | 2019 | | Oncology | [place], | | | | | | [place] [address] | | +--------+ + + + + | 12/12/ | Clinical | | | | | 2018 | Support | | | | | | Staff | | | | +--------+ + + + + | 12/12/ | Office | Hematology & | Taz Mcneal, | | | 2018 | Visit | Oncology | OLYA [address] | | | | | | [address] | | | | | | [place], [place] | | | | | | [address] | | | | | | [phone] | | | | | | | | +--------+ + + + + | 12/12/ | Appointment | Hematology & | B/C, Pod [address] | | | 2018 | | Oncology | [place], | | | | | | [place] [address] | | +--------+ + + + + [...]
--- OUTSIDE RECORDS SUMMARY | ~2018-11-06 | XMS | Encounter Summary ---
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, ambulatory and instruct ions have [...] | 2019 | | Oncology | [address] [facility] [address] | | | | | | [place] [address] | | +--------+ + + + + | 11/14/ | Office | Hematology & | Taz Mcneal, | | | 2018 | Visit | Oncology | OLYA [address] | | | | | | [address] | | | | | | [place], [place] | | | | | | [address] | | | | | | [phone] | | | | | | | | +--------+ + + + + | 11/14/ | Appointment | Hematology & | B/C, Pod [address] | | | 2018 | | Oncology | [address] [place], | | | | | | [place] [address] | | +--------+ + + + + | 11/28/ | Clinical | | | | | 2018 | Support | | | | | | Staff | | | | +--------+ + + + + | 11/28/ | Office | Hematology & | Taz Mcneal, | | | 2018 | Visit | Oncology | OLYA [address] | | | | | | [address] | | | | | | [place], [place] | | | | | | [address] | | | | | | [phone] | | | | | | | | +--------+ + + + + | 11/28/ | Appointment | Hematology & | B/C, Pod [address] | | | 2019 | | Oncology | [place], | | | | | | [place] [address] | | +--------+ + + + + | 12/12/ | Clinical | | | | | 2018 | Support | | | | | | Staff | | | | +--------+ + + + + | 12/12/ | Office | Hematology & | Taz Mcneal, | | | 2018 | Visit | Oncology | PA-Cindy [address] | | | | | | [address] | | | | | | [place], [place] | | | | | | [address] | | | | | | [phone] | | | | | | | | +--------+ + + + + | 12/12/ | Appointment | Hematology & | B/C, Pod [address] | | | 2019 | | Oncology | [place], | | | | | | [place] [address] | | +--------+ + + + + [...] POINT | [address] | [place] [address] | | | OF CARE TESTS | [...] [facility], POINT | [address] [facility] | [place] [address] | | | OF CARE TESTS | [...]
--- OUTSIDE RECORDS SUMMARY | ~2018-11-06 | XMS | Encounter Summary ---
Demographics + + + | Address | [address] | | | [place] [address] | + + + | Home Phone [...] | | | | | [place] [address] | | + + + + + Care Team Providers + +------+ + | Care Campus Dean Name | Role | Phone | + [...] | 2019 | Encounter | [facility] [place] | ,PhD [address] | | | | | for Health & Healing | [place], [place] | | | | | [address] | [address] | | | | | Mailcode: [place] | [phone] | | | | | for Health and | | | | | | Healing, [address] | | | | | | [place], [place] | | | | | | [address] | | | | | | [phone] | | | +--------+ + + + [...] Rd | | | | | | [place] [address] | | +--------+ + + + + | 11/14/ | Office | Hematology & | Taz Mcneal, | | | 2019 | Visit | Oncology | FABIANA-Cindy [address] | | | | | | [address] | | | | | | [facility] [place] | | | | | | [address] | | | | | | [phone] | | | | | | | | +--------+ + + + + | 11/14/ | Appointment | Hematology & | B/C, Pod [address] | | | 2019 | | Oncology | [place], | | | | | | [place] [address] | | +--------+ + + + + [...] [place] | | | | | | [address] | | | | | | [phone] | | | | | | | | +--------+ + + + + | 11/28/ | Appointment | Hematology & | B/C, Pod [address] | | | 2018 | | Oncology | [place], | | | | | | [place] [address] | | +--------+ + + + + | 12/12/ | Clinical | | | | | 2019 | Support | | | | | | Staff | | | | +--------+ + + + + | 12/12/ | Office | Hematology & | Taz Mcneal, | | | 2018 | Visit | Oncology | PA-C [address] [facility] | | | | | | [address] | | | | | | [place], [place] | | | | | | [address] | | | | | | [phone] | | | | | | | | +--------+ + + + + | 12/12/ | Appointment | Hematology & | B/C, Pod [address] | | | 2019 | | Oncology | [place], | | | | | | [place] [address] | | +--------+ + + + + as of this encounter Visit Diagnoses Not on filein this encounter"
--- OUTSIDE RECORDS SUMMARY | ~2018-11-06 | XMS | Encounter Summary ---
Demographics + + + | Address | [address] | | | [place] [address] | + + + | Home Phone [...] | | | | | [place] [address] | | + + + + + Care Team Providers + +------+ + | Care Wood Fence Erector Name | Role | Phone | + [...] + + | 08/10/ | Hospital | [facility] [address] | Martin Carrero, | | | 2019 | Encounter | [address] | [address] | | | | | [address] [place] | [address] | | | | | [place], | [place], [place] | | | | | [place] [address] | [address] | | | | | [phone] | [phone] | | | | | | | [...] See plan below: Tylenol: You may use inmg-gus-zyxdnns (OTC) acetaminophen (Tylenol) for milder pain. DO [...] | | | | | [place] [address] | | +--------+ + + + + | 11/14/ | Office | Hematology & | Taz Mcneal, | | | 2018 | Visit | Oncology | PA-C [address] | | | | | | [address] | | | | | | [place] | | | | | | [address] | | | | | | [phone] | | | | | | | | +--------+ + + + + | 11/14/ | Appointment | Hematology & | B/C, Pod [address] | | | 2018 | | Oncology | [place] | | | | | | [place] [address] | | +--------+ + + + + | 11/28/ | Clinical | | | | | 2018 | Support | | | | | | Staff | | | | +--------+ + + + + | 11/28/ | Office | Hematology & | Taz Mcneal, | | | 2018 | Visit | Oncology | PACristi [address] [facility] | | | | | | [address] | | | | | | [place] | | | | | | [address] | | | | | | [phone] | | | | | | | | +--------+ + + + + | 11/28/ | Appointment | Hematology & | B/C, Pod [address] | | | 2019 | | Oncology | [place] | | | | | | [place] [address] | | +--------+ + + + + | 12/12/ | Clinical | | | | | 2018 | Support | | | | | | Staff | | | | +--------+ + + + + | 12/12/ | Office | Hematology & | Taz Mcneal, | | | 2018 | Visit | Oncology | PA-C [address] [facility] | | | | | | [address] | | | | | | [place] | | | | | | [address] | | | | | | [phone] | | | | | | | | +--------+ + + + + | 12/12/ | Appointment | Hematology & | B/C, Pod [address] | | | 2018 | | Oncology | [place] | | | | | | [place] [address] | | +--------+ + + + + [...] | 3.50 - 10.80 K/cu mm | [facility] | | | | | [...] 37.8 | 35.1 - 46.3 fL | [facility] | | | | | SERVICES, CORE | + + + + + | PLATELET COUNT | 377 | 150 - 400 K/cu mm | [facility] | | | | | SERVICES, CORE | + + + + + | MPV | 9.0 (L) | 9.7 - 12.3 fL | [facility] | | | | | SERVICES, CORE | + + + + + | NRBC% | 0.0 | 0.0 - 0.3 % | [facility] | | | | | SERVICES, CORE | + + + + + | NRBC# | 0.00 | 0.00 - 0.02 K/cu mm | [facility] | | | | | SERVICES, CORE | + + + + + + + | Specimen | + + | Blood - Blood | + + + + + + + | Performing | Address | City/State/Zipcode | Phone Number | | Organization | | | | + + + + + | [facility] | [address] | [place] [address] | | | SERVICES, [place] | [address] | | | + + + + + PROCEDURE NOTE (08/10/2018 4:26 PM)LAPAROSCOPIC LIVER BIOPSY (08/10/2018 2:31 PM) + + + | Narrative | Performed At | + + + | Tigist Lawrence MD 08/10/2018 3:20 PM [facility] | | | Department of Surgery Operative Note Author: Tigist Lawrence MD, | | | [facility] MIS Fellow ID: Elaine Goode Date | | | of the Procedure: 08/10/2018 Preoperative Diagnosis: Metastatic | | | pancreatic cancer to liver Postoperative Diagnosis: same | | | Procedure: 1. Placement of right internal jugular vein Power Port | | | with U/S guidance and floroscopy 2. Diagnostic laparoscopy with | | | liver biopsy Surgeon: Martin Carrero MD Help Desk Associate(s): | | | Tigist Lawrence MD [facility], Galo Oneal MD R5 Indication: A [...] port site, through which we fei the 8-hong konger | | | port line itself and [...] | | | Minimally Invasive Surgery Fellow [facility] | | | [place] P[place] [phone] | | + + + INSERTION OF RIGHT TUNNELED CENTRAL VENOUS CATHETER WITH PORT (08/10/2018 2:31 PM) + + + | Narrative | Performed At | + + + | Tigist Lawrence MD 08/10/2018 3:20 PM [facility] | | | Department of Surgery Operative Note Author: Tigist Lawrence MD, | | | [facility] MIS Fellow ID: Elaine Goode Date | | | of the Procedure: 08/10/2018 Preoperative Diagnosis: Metastatic | | | pancreatic cancer to liver Postoperative Diagnosis: same | | | Procedure: 1. Placement of right internal jugular vein Power Port | | | with U/S guidance and floroscopy 2. Diagnostic laparoscopy with | | | liver biopsy Surgeon: Martin Carrero MD Help Desk Associate(s): | | | Tigist Lawrence MD [facility], Galo Oneal MD R5 Indication: A [...] port site, through which we fei the 8-hong konger | | | port line itself and [...] | | | Minimally Invasive Surgery Fellow [facility] | | | [place] [phone] | | + + + LAB OTHER [...] | | [facility] | | | Diamond Christopher on | | LAB | | | 09-05-2018 | | | + + + + + | NORMAL RANGE | | | [facility] | | | | | LAB | + + + + + | REFERRAL LAB NAME | [address] | | [facility] | | | Jordan PEPPER Milian | | LAB | | | [address] | | | + + + + [...] + | Foundation | [facility] | | [facility], [address] [place] [address] | REFERENCE LAB | |[place] [address] | | | | | | | | | | | + + + + + + + + | Performing | Address | City/State/Zipcode | Phone Number | | Organization | | | | + + + + + | [facility] | | | | + + + + + | [facility] | see below | | | + + + + + [facility] (08/10/2018 2:01 PM) + + + + + | Component | Value | Ref Range | Performed At | + + + + + | [facility] | Please see scanned | | [...] | | | | | [facility] | | | [address] | | | [place] [address] | | + + + + + [...] 72 year old female with | | [facility] | | | a history of metastatic | | OF PATHOLOGY | | | pancreatic | | | | | adenocarcinoma | | | + + + + + | Final Pathologic | A. Liver, Segment 2-3 | | [facility] | | Diagnosis | liver, [...] | PathologistPathology, | | | | | [facility] | | | | | [facility] | | | | | signature indicates [...] | Received is one specimen | | [facility] | | | fresh labeled with the | | OF PATHOLOGY | | | patient's name (initials | | | | | DARIO) and medical record | | | | | number [id number]. | | | | | Liver, Segment [...] | Ancillary | Analyte specific | | [facility] | | Information | reagents [...] | | | | | determined by [facility] | | | | | laboratories. [...] + + + | [facility] | [address] | [place] [address] | | | PATHOLOGY | [address] [...] | + + | Malignant neoplasm of head of pancreas (HCC) | + + | Malignant neoplasm of head of pancreas | + + Admitting Diagnoses + + [...] PRN, | | | Starting 08/10/18 at 1359, [...]
--- OUTSIDE RECORDS SUMMARY | ~2018-11-06 | XMS | Clinical Summary ---
Demographics + + + | Address | [address] | | | [place] [address] | + + + | Home Phone | | + + + | Preferred Language | Unknown | + + + | Marital Status | Unknown | + + + | Congregation Affiliation | Unknown | + + + | Race | Unknown | + + + | Ethnic Group | Unknown | + + + Author + + + | Author | [facility] | | | and [place] | + + + | Organization | [facility] | | | and [place] | + + + | Address | Unknown | + + + | Phone | Unavailable | + + + Care Team Providers + +------+ + | Care Hr Receptionist Name | Role | Phone | + [...]
--- OUTSIDE RECORDS SUMMARY | ~2018-11-06 | XMS | Encounter Summary ---
Demographics + + + | Address | [address] | | | [place] [address] | + + + | Home Phone [...] | | | | | [place] [address] | | + + + + + Care Team Providers + +------+ + | Care Hogshead Builder Name | Role | Phone | + [...] | | 2019 | | [facility] [place] | | (distress screening) | | | | for Health & Healing | | | | | | [address] | | | | | | Mailcode: [place] | | | | | | for Health and | | | | | | Healing, Building | | | | | | [place], [place] | | | | | | [address] | | | | | | [phone] | | | +--------+ + + + [...] Rd | | | | | | [place] [address] | | +--------+ + + + + | 11/14/ | Office | Hematology & | Taz Mcneal, | | | 2018 | Visit | Oncology | PA-C [address] | | | | | | [address] | | | | | | [place] | | | | | | [address] | | | | | | [phone] | | | | | | | | +--------+ + + + + | 11/14/ | Appointment | Hematology & | B/C, Pod [address] | | | 2018 | | Oncology | [place] | | | | | | [place] [address] | | +--------+ + + + + [...] [place] | | | | | | [address] | | | | | | [phone] | | | | | | | | +--------+ + + + + | 11/28/ | Appointment | Hematology & | B/C, Pod [address] | | | 2018 | | Oncology | [place], | | | | | | [place] [address] | | +--------+ + + + + [...] [place] | | | | | | [address] | | | | | | [phone] | | | | | | | | +--------+ + + + + | 12/12/ | Appointment | Hematology & | B/C, Pod [address] | | | 2019 | | Oncology | [place], | | | | | | [place] [address] | | +--------+ + + + + as of this encounter Visit Diagnoses Not on filein this encounter"
--- OUTSIDE RECORDS SUMMARY | ~2018-11-06 | XMS | Encounter Summary ---
Demographics + + + | Address | [address] | | | [place] [address] | + + + | Home Phone [...] | | | | | [place] [address] | | + + + + + Care Team Providers + +------+ + | Care Personnel Scheduler Name | Role | Phone | + +------+ + | Piotr Plummer MD | PCP | | + +------+ + Reason for Visit + + + | Reason | Comments | + + + | Refill Request | apixaban 5 mg (74 tabs) oral tablets,dose pack | + + + Encounter Details +--------+--------+ + + + | Date | Type | Department | Care Team | Description | +--------+--------+ + + + | 10/09/ | Refill | Hematology/Medical | Toni Mccrary, | Refill Request | | 2019 | | [facility] at [facility] | ,PhD [address] | (apixaban 5 mg (74 | | | | [facility] | [address] [place], [place] | tabs) oral | | | | [address] | [address] | tablets,dose pack) | | | | Mailcode: [facility] | [phone] | | | | | for Health and | | | | | | Healing, [address] | | | | | | [place], [place] | | | | | | [address] | | | | | | [phone] | | | +--------+--------+ + + + [...] Rd | | | | | | [place] [address] | | +--------+ + + + + | 11/14/ | Office | Hematology & | Taz Mcneal, | | | 2018 | Visit | Oncology | OLYA [address] | | | | | | [address] | | | | | | [place], [place] | | | | | | [address] | | | | | | [phone] | | | | | | | | +--------+ + + + + | 11/14/ | Appointment | Hematology & | B/C, Pod [address] | | | 2018 | | Oncology | [place], | | | | | | [place] [address] | | +--------+ + + + + | 11/28/ | Clinical | | | | | 2019 | Support | | | | | | Staff | | | | +--------+ + + + + | 11/28/ | Office | Hematology & | Taz Mcneal, | | | 2018 | Visit | Oncology | PA-C [address] [facility] | | | | | | [address] | | | | | | [place] | | | | | | [address] | | | | | | [phone] | | | | | | | | +--------+ + + + + | 11/28/ | Appointment | Hematology & | B/C, Pod [address] | | | 2019 | | Oncology | [place], | | | | | | [place] [address] | | +--------+ + + + + | 12/12/ | Clinical | | | | | 2019 | Support | | | | | | Staff | | | | +--------+ + + + + | 12/12/ | Office | Hematology & | Taz Mcneal, | | | 2018 | Visit | Oncology | PACristi [address] [facility] | | | | | | [address] | | | | | | [place] | | | | | | [address] | | | | | | [phone] | | | | | | | | +--------+ + + + + | 12/12/ | Appointment | Hematology & | B/C, Pod [address] | | | 2019 | | Oncology | [place], | | | | | | [place] [address] | | +--------+ + + + + [...]
--- OUTSIDE RECORDS SUMMARY | ~2018-11-06 | XMS | Encounter Summary ---
Demographics + + + | Address | [address] | | | [place] [address] | + + + | Home Phone [...] | | | | | [place] [address] | | + + + + + Care Team Providers + +------+ + | Care Director Of Pediatric Rehabilitation Name | Role | Phone | + +------+ + | Piotr Plummer MD | PCP | | + +------+ + Encounter Details +--------+ + + + + | Date | Type | Department | Care Team | Description | +--------+ + + + + | 08/09/ | Plumbing Inspector | Hematology | Toni Mccrary, | Pancreatic | | 2019 | | Oncology Study [address] | ,PhD [address] | adenocarcinoma (HCC) | | | | [address] | [place], [place] | (Primary Dx) | | | | Mailcode: CH7M | [address] | | | | | [facility] | [phone] | | | | | and | | | | | | Floor [place], [place] | | | | | | [address] | | | | | | [phone] | | | +--------+ + + + [...] Rd | | | | | | [place] [address] | | +--------+ + + + + | 11/14/ | Office | Hematology & | Taz Mcneal, | | | 2018 | Visit | Oncology | OLYA [address] [facility] | | | | | | [address] | | | | | | [place], [place] | | | | | | [address] | | | | | | [phone] | | | | | | | | +--------+ + + + + | 11/14/ | Appointment | Hematology & | B/C, Pod [address] | | | 2018 | | Oncology | [place], | | | | | | [place] [address] | | +--------+ + + + + [...] Rd | | | | | | [place], [place] | | | | | | [address] | | | | | | [phone] | | | | | | | | +--------+ + + + + | 11/28/ | Appointment | Hematology & | B/C, Pod [address] | | | 2018 | | Oncology | [place], | | | | | | [place] [address] | | +--------+ + + + + [...] Rd | | | | | | [place], [place] | | | | | | [address] | | | | | | [phone] | | | | | | | | +--------+ + + + + | 12/12/ | Appointment | Hematology & | B/C, Pod [address] | | | 2019 | | Oncology | [place], | | | | | | [place] [address] | | +--------+ + + + + [...] 2.3 | 1.6 - 2.6 mg/dL | [facility] | | | | | ELIS[address]AMMELL | + +-------+ + + + + | Specimen | + + | Blood - Blood | + + + + + + + | Performing | Address | City/State/Zipcode | Phone Number | | Organization | | | | + + + + + | [facility] | [address] | [place] [address] | | | VALERI, ELISHA | [address] | | | + + + + + PHOSPHORUS, PLASMA (08/22/2018 9:15 AM) + +-------+ + + | Component | Value | Ref Range | Performed At | + +-------+ + + | PHOSPHORUS, PLASMA | 2.4 | 2.4 - 4.7 mg/dL | [facility] | | (LAB) | | | SERVICES, CORE | + +-------+ + + + + | Specimen | + + | Blood - Blood | + + + + + + + | Performing | Address | City/State/Zipcode | Phone Number | | Organization | | | | + + + + + | [facility] | [address] | [place] [address] | | | SERVICES, CORE | [address] | | | + + + + + INR (08/22/2018 9:15 AM) + +-------+ + + | Component | Value | Ref Range | Performed At | + +-------+ + + | INR | 1.08 | 0.90 - 1.20 INR | [facility] | | | | | SERVICES, [...] [facility] | [address] | [place] [address] | | | SERVICESELISHA | [address] [...] | + + + + + | [facility] | [address] | [place] [address] | | | SERVICESELISHA | [address] | | | + + + + + APTT (ACT. PART. THROMBO TIME) (08/22/2018 9:15 AM) + +-------+ + + | Component | Value | Ref Range | Performed At | + +-------+ + + | APTT | 30.3 | 26.0 - 36.0 seconds | [facility] | | | | | ELISHA [...] [facility] | [address] | [place] [address] | | | SERVICES, CORE | [address] | | | + + + + + CANCER AG GI (), SERUM (08/13/2018 11:50 AM) + + + + + | Component | Value | Ref Range | Performed At | + + + + + | CANCER AG GI () | 8,843.5 (H) | <=37.0 U/mL | [facility] | | [facility] | | | SERVICES, CORE | + + + + + + + | Specimen | + + | Blood - Blood | + + + + + + + | Performing | Address | City/State/Zipcode | Phone Number | | Organization | | | | + + + + + | [facility] | [address] [facility] | [place] [address] | | | SERVICES, CORE | [address] [...] | + + + + + | [facility] | [address] | [place] [address] | | | SERVICES, VICTOR FOR | | | | | HEALTH [...] 1.021Comment: Specific | 1.005 - 1.030 | [facility] | | | [place] performed by | | VALERI, CORE | | | refractometry | | | + + + + + + + | Specimen | + + | Urine - Clean catch | + + + + + + + | Performing | Address | City/State/Zipcode | Phone Number | | Organization | | | | + + + + + | [facility] | [address] | [place] [address] | | | SERVICES, CORE | [address] | | | + + + + + in this encounter Visit Diagnoses + + | Diagnosis | + + | Pancreatic adenocarcinoma (HCC) - Primary | + + | Malignant neoplasm of pancreas, part unspecified | + +"
--- OUTSIDE RECORDS SUMMARY | ~2018-11-06 | XMS | Encounter Summary ---
Demographics + + + | Address | [address] | | | [place] [address] | + + + | Home Phone [...] | | | | | [place] [address] | | + + + + + Care Team Providers + +------+ + | Care Software Engineer Advisor Name | Role | Phone | [...] 2019 | | Center at [facility] [address] | [address] | | | | | [address] | [facility] | | | | | Mailcode: Center | [place], [place] | | | | | [facility] and | [address] | | | | | [facility] | [phone] | | | | | [place], [place] | | | | | | [address] | | | | | | [phone] | | | +--------+ + + + [...] | | | | | | [place] [address] | | +--------+ + + + + | 11/14/ | Office | Hematology & | Taz Mcneal, | | | 2019 | Visit | Oncology | PA-C [address] | | | | | | [address] | | | | | | [place] | | | | | | [address] | | | | | | [phone] | | | | | | | | +--------+ + + + + | 11/14/ | Appointment | Hematology & | B/C, Pod [address] | | | 2019 | | Oncology | [place] | | | | | | [place] [address] | | +--------+ + + + + [...] Rd | | | | | | [place], [place] | | | | | | [address] | | | | | | [phone] | | | | | | | | +--------+ + + + + | 11/28/ | Appointment | Hematology & | B/C, Pod [address] | | | 2018 | | Oncology | [place], | | | | | | [place] [address] | | +--------+ + + + + [...] [place] | | | | | | [address] | | | | | | [phone] | | | | | | | | +--------+ + + + + | 12/12/ | Appointment | Hematology & | B/C, Pod [address] | | | 2019 | | Oncology | [place], | | | | | | [place] [address] | | +--------+ + + + + as of this encounter Visit Diagnoses Not on filein this encounter"
--- OUTSIDE RECORDS SUMMARY | ~2018-11-06 | XMS | Encounter Summary ---
Demographics + + + | Address | [address] | | | [place] [address] | + + + | Home Phone [...] | | | | | [place] [address] | | + + + + + Care Team Providers + +------+ + | Care Medical Office Professional Instructor Name | Role | Phone | [...] | | | | Mailcode: Center | [place], [place] | | | | | and | [address] | | | | | [facility] | [phone] | | | | | [place], [place] | | | | | | [address] | | | | | | [phone] | | | +--------+ + + + [...] Rd | | | | | | [place] [address] | | +--------+ + + + + | 11/14/ | Office | Hematology & | Taz Mcneal, | | | 2018 | Visit | Oncology | PA-C [address] | | | | | | [address] | | | | | | [place] | | | | | | [address] | | | | | | [phone] | | | | | | | | +--------+ + + + + | 11/14/ | Appointment | Hematology & | B/C, Pod [address] | | | 2018 | | Oncology | [place] | | | | | | [place] [address] | | +--------+ + + + + | 11/28/ | Clinical | | | | | 2018 | Support | | | | | | Staff | | | | +--------+ + + + + | 11/28/ | Office | Hematology & | Taz Mcneal, | | | 2018 | Visit | Oncology | FABIANA-Cindy [address] [facility] | | | | | | [address] | | | | | | [facility] | | | | | | [address] | | | | | | [phone] | | | | | | | | +--------+ + + + + | 11/28/ | Appointment | Hematology & | B/C, Pod [address] | | | 2019 | | Oncology | [place] | | | | | | [place] [address] | | +--------+ + + + + | 12/12/ | Clinical | | | | | 2018 | Support | | | | | | Staff | | | | +--------+ + + + + | 12/12/ | Office | Hematology & | Taz Mcneal, | | | 2018 | Visit | Oncology | OLYA [address] [facility] | | | | | | [address] | | | | | | [place] | | | | | | [address] | | | | | | [phone] | | | | | | | | +--------+ + + + + | 12/12/ | Appointment | Hematology & | B/C, Pod [address] | | | 2018 | | Oncology | [place], | | | | | | [place] [address] | | +--------+ + + + + as of this encounter Visit Diagnoses Not on filein this encounter"
--- OUTSIDE RECORDS SUMMARY | ~2018-11-06 | XMS | Encounter Summary ---
Demographics + + + | Address | [address] | | | [address] | + + + | Home Phone [...] | | | | | [place] [address] | | + + + + + Care Team Providers + +------+ + | Care Gre Tutor Name | Role | Phone | + [...] | | [address] | [place] [address] | | | | | Mailcode: [place] | | | | | | for Health and | | | | | | Healing, [address] | | | | | | [place], [place] | | | | | | [address] | | | | | | [phone] | | | +--------+ + + + [...] | 1 | 09/13/19 | | | hngjxp-gosdeivy-chpa | meals and 1 | capsule | [...] [address] | | | | | | [place] [address] | | +--------+ + + + + | 11/14/ | Office | Hematology & | Taz Mcneal, | | | 2018 | Visit | Oncology | PA-C [address] | | | | | | [address] | | | | | | [place], [place] | | | | | | [address] | | | | | | [phone] | | | | | | | | +--------+ + + + + | 11/14/ | Appointment | Hematology & | B/C, Pod [address] | | | 2018 | | Oncology | [place] | | | | | | [place] [address] | | +--------+ + + + + [...] Rd | | | | | | [place], [place] | | | | | | [address] | | | | | | [phone] | | | | | | | | +--------+ + + + + | 11/28/ | Appointment | Hematology & | B/C, Pod [address] | | | 2018 | | Oncology | [place], | | | | | | [place] [address] | | +--------+ + + + + [...] [place] | | | | | | [address] | | | | | | [phone] | | | | | | | | +--------+ + + + + | 12/12/ | Appointment | Hematology & | B/C, Pod [address] | | | 2018 | | Oncology | [place], | | | | | | [place] [address] | | +--------+ + + + + [...] [facility] | [address] | [address] | | | SERVICES, [facility] | [address] | | | + [...] 3.5 | 3.5 - 4.7 g/dL | [facility], | | | | | POINT OF CARE | | | | | TESTS | + + + + + | PROTEIN TOTAL, CMP | 7.2 | 6.4 - 8.2 g/dL | [facility], | | POC | | [...] [facility], POINT | [address] [facility] | [place] [address] | | | OF CARE TESTS | [...] + + | BARBARA OWEN | [address] [facility] | [place] [address] | | | OF CARE TESTS | [...] [facility] | [address] | [address] | | | SERVICES, CORE | [address] | | | + + + + + in this encounter Visit Diagnoses + + | Diagnosis | + + | Pancreatic adenocarcinoma (HCC) | + + | Malignant neoplasm of pancreas, part unspecified | + +"
--- OUTSIDE RECORDS SUMMARY | ~2018-11-06 | XMS | Encounter Summary ---
Demographics + + + | Address | [address] | | | [place] [address] | + + + | Home Phone [...] | | | | | [place] [address] | | + + + + + Care Team Providers + +------+ + | Care Hand Paint Mixer Name | Role | Phone | + [...] | 08/22/ | Documentati | Hematology/Medical | Khalida Mckeon, | Medication Education | | 2019 | on | [facility] | PharmD [address] | (First cycle | | | | for [facility] | [address] | antiemetic teaching) | | | | [address] | [place], [place] | | | | | Mailcode: [facility] | [address] | | | | | for Health and | | | | | | Healing, [address] | | | | | | [place], [place] | | | | | | [address] | | | | | | [phone] | | | +--------+ + + + [...] | | | | | [place] [address] | | +--------+ + + + + | 11/14/ | Office | Hematology & | Taz Mcneal, | | | 2018 | Visit | Oncology | PA-C [address] | | | | | | [address] | | | | | | [facility] | | | | | | [address] | | | | | | [phone] | | | | | | | | +--------+ + + + + | 11/14/ | Appointment | Hematology & | B/C, Pod [address] | | | 2019 | | Oncology | [place] | | | | | | [place] [address] | | +--------+ + + + + | 11/28/ | Clinical | | | | | 2018 | Support | | | | | | Staff | | | | +--------+ + + + + | 11/28/ | Office | Hematology & | Taz Mcneal, | | | 2018 | Visit | Oncology | OLYA [address] [facility] | | | | | | [address] | | | | | | [place] | | | | | | [address] | | | | | | [phone] | | | | | | | | +--------+ + + + + | 11/28/ | Appointment | Hematology & | B/C, Pod [address] | | | 2019 | | Oncology | [place] | | | | | | [place] [address] | | +--------+ + + + + | 12/12/ | Clinical | | | | | 2018 | Support | | | | | | Staff | | | | +--------+ + + + + | 12/12/ | Office | Hematology & | Taz Mcneal, | | | 2018 | Visit | Oncology | PACristi [address] [facility] | | | | | | [address] | | | | | | [place] | | | | | | [address] | | | | | | [phone] | | | | | | | | +--------+ + + + + | 12/12/ | Appointment | Hematology & | B/C, Pod [address] | | | 2018 | | Oncology | [place] | | | | | | [place] [address] | | +--------+ + + + + as of this encounter Visit Diagnoses Not on filein this encounter"
--- OUTSIDE RECORDS SUMMARY | ~2018-11-06 | XMS | Encounter Summary ---
Demographics + + + | Address | [address] | | | [place] [address] | + + + | Home Phone [...] | | | | | [place] [address] | | + + + + + Care Team Providers + +------+ + | Care Casting Trucker Name | Role | Phone | + [...] | | | | Mailcode: Center | [address] | Biliary obstruction | | | | for Health and | [phone] | due to cancer (HCC); | | | | Healing, [address] | | Pancreatic | | | | [place], [place] | | insufficiency; | | | | [address] | | Encounter for | | | | [phone] | | antineoplastic | | | | [...] clinic hours please call the clinic at [phone]. Evenings, weekends and holidays please call [phone] and ask to have the oncologist vacuum cleaner repair person paged. in this encounter Progress Notes Taz [...] placement of metal biliary stent 10/31/18: C3 Preble/Abraxane Interim history: Since her last visit, Elaine [...] 1. Metastatic pancreatic adenocarcinoma. --ongoing first line Preble/Abraxane. Tolerating well with significant decline in CA19-9. Note s increasing fatigue. Recent episode of diarrhea requiring ED visit. --C3D1 Preble/Abraxane scheduled 10/17/18, initially deferred for uncontrolled diarrhea --Restaging CT (10/17/18) with responsive disease but showed new biliary duct obstruction, wi th normal TBili, prompting ERCP w/ metal stent placement (10/23/18) --Patient has recovered well from biliary stenting, shows elevated WBC but afebrile --Proceed with C3 Preble/Abraxane today (10/31/2018) --Per Dr. Mccrary: Restaging CT [...] care Taz Mcneal PA-C HEMATOLOGY[facility]Y AT [facility] [address] [place] [address] [place]code: [place] [address] in this encounter Plan of Treatment +--------+ + + + + | Date | Type | Specialty | Care Team | Description | +--------+ + + + + | 11/14/ | Appointment | Hematology & | Moustapha Sher | | | 2019 | | Oncology | [address] | | | | | | [place] [address] | | +--------+ + + + + | 11/14/ | Office | Hematology & | Taz Mcneal, | | | 2018 | Visit | Oncology | PA-C [address] | | | | | | [address] | | | | | | [place] | | | | | | [address] | | | | | | [phone] | | | | | | | | +--------+ + + + + | 11/14/ | Appointment | Hematology & | B/C, Pod [address] | | | 2019 | | Oncology | [place] | | | | | | [place] [address] | | +--------+ + + + + [...] [place] | | | | | | [address] | | | | | | [phone] | | | | | | | [...] [address] | | | | | | [place], [place] | | | | | | [address] | | | | | | [phone] | | | | | | | | +--------+ + + + + | 12/12/ | Appointment | Hematology & | B/C, Pod [address] | | | 2018 | | Oncology | [place], | | | | | | [place] [address] | | +--------+ + + + + [...]
--- OUTSIDE RECORDS SUMMARY | ~2018-11-06 | XMS | Encounter Summary ---
Demographics + + + | Address | [address] | | | [place] [address] | + + + | Home Phone [...] | | | | | [place] [address] | | + + + + + Care Team Providers + +------+ + | Care Manager Contracting Name | Role | Phone | + [...] | DIAGNOSTIC | | 2019 | | [facility] | MD [address] | LAPAROSCOPY WITH | | | | Admitting Desk | [facility] | SEGMENT 2-3 LIVER | | | | Located on the | [place], [place] | BIOPSY, | | | | floor [address] | [address] | | | | | [facility] | [phone] | | | | | [place], [place] | | | | | | [address] | | | +--------+---------+ + + + [...] See plan below: Tylenol: You may use chry-cwd-sqgsabe (OTC) acetaminophen (Tylenol) for milder pain. DO [...] Rd | | | | | | [place] [address] | | +--------+ + + + + | 11/14/ | Office | Hematology & | Taz Mcneal, | | | 2018 | Visit | Oncology | PAL[facility] [address] | | | | | | [address] | | | | | | [place], [place] | | | | | | [address] | | | | | | [phone] | | | | | | | | +--------+ + + + + | 11/14/ | Appointment | Hematology & | B/C, Pod [address] | | | 2019 | | Oncology | [place], | | | | | | [place] [address] | | +--------+ + + + + | 11/28/ | Clinical | | | | | 2018 | Support | | | | | | Staff | | | | +--------+ + + + + | 11/28/ | Office | Hematology & | Taz Mcneal, | | | 2018 | Visit | Oncology | PA-C [address] [facility] | | | | | | [address] | | | | | | [place] | | | | | | [address] | | | | | | [phone] | | | | | | | | +--------+ + + + + | 11/28/ | Appointment | Hematology & | B/C, Pod [address] | | | 2019 | | Oncology | [place] | | | | | | [place] [address] | | +--------+ + + + + [...] Michelle | | | | | | [address] | | | | | | [place] | | | | | | [address] | | | | | | [phone] | | | | | | | | +--------+ + + + + | 12/12/ | Appointment | Hematology & | B/C, Pod [address] | | | 2018 | | Oncology | [place], | | | | | | [place] [address] | | +--------+ + + + + [...] | 4.00 - 5.20 M/cu mm | [facility] | | | | | SERVICES, CORE | + + + + + | HEMOGLOBIN | 11.7 (L) | 12.0 - 16.0 g/dL | [facility] | | | | | SERVICES, CORE | + + + + + | HEMATOCRIT | 36.5 | 36.0 - 46.0 % | [facility] | | | | | SERVICES, CORE | + + + + + | MCV | 87.7 | 80.0 - 100.0 fL | [facility] | | | | | SERVICES, CORE | + + + + + | MCHC | 32.1 | 32.0 - 36.0 g/dL | [facility] | | | | | SERVICES, CORE | + + + + + | RDW SD | 37.8 | 35.1 - 46.3 fL | [facility] | | | | | SERVICES, CORE | + + + + + | PLATELET COUNT | 377 | 150 - 400 K/cu mm | [facility] | | | | | SERVICES, CORE | + + + + + | MPV | 9.0 (L) | 9.7 - 12.3 fL | [facility] | | | | | SERVICES, CORE | + + + + + | NRBC% | 0.0 | 0.0 - 0.3 % | [facility] | | | | | SERVICES, CORE | + + + + + | NRBC# | 0.00 | 0.00 - 0.02 K/cu mm | [facility] | | | | | [address] | + + + + + + + | Specimen | + + | Blood - Blood | + + + + + + + | Performing | Address | City/State/Zipcode | Phone Number | | Organization | | | | + + + + + | [facility] | [address] | [place] [address] | | | EL[address] TRAMME[address] | [address] | | | + + + + + PROCEDURE NOTE (08/10/2018 4:26 PM)LAPAROSCOPIC LIVER BIOPSY (08/10/2018 2:31 PM) + + + | Narrative | Performed At | + + + | Tigist Lawrence MD 08/10/2018 3:20 PM [place] | | | Department of Surgery Operative Note Author: Tigist Lawrence MD, | | | [facility] Fellow ID: Elaine Goode Date | | | of the Procedure: 08/10/2018 Preoperative Diagnosis: Metastatic | | | pancreatic cancer to liver Postoperative Diagnosis: same | | | Procedure: 1. Placement of right internal jugular vein Power Port | | | with U/S guidance and floroscopy 2. Diagnostic laparoscopy with | | | liver biopsy Surgeon: Martin Carrero MD Punch Finisher(s): | | | Tigist Lawrence MD [facility], Galo Oneal MD R5 Indication: A 72 [...] port site, through which we fei the 8-mexican | | | port line itself and [...] | | | Minimally Invasive Surgery Fellow [facility] | | | [place] Pager [address] | | + + + INSERTION OF RIGHT TUNNELED CENTRAL VENOUS CATHETER WITH PORT (08/10/2018 2:31 PM) + + + | Narrative | Performed At | + + + | Tigist Lawrence MD 08/10/2018 3:20 PM [place] | | | Department of Surgery Operative Note Author: Tigist Lawrence MD, | | | [facility] Fellow ID: Elaine Goode Date | | | of the Procedure: 08/10/2018 Preoperative Diagnosis: Metastatic | | | pancreatic cancer to liver Postoperative Diagnosis: same | | | Procedure: 1. Placement of right internal jugular vein Power Port | | | with U/S guidance and floroscopy 2. Diagnostic laparoscopy with | | | liver biopsy Surgeon: Martin Carrero MD Punch Finisher(s): | | | Tigist Lawrence MD [facility], Galo Oneal MD R5 Indication: A 72 [...] port site, through which we fei the 8-mexican | | | port line itself and [...] | | | Minimally Invasive Surgery Fellow [facility] | | | [place] Pager [address] | | + + + LAB OTHER [...] davidson | | LAB | | | [address] | | | + + + + [...] + | Foundation | [facility] | | Pharmacy [address] [place] [address] | REFERENCE LAB | |[place] [address] | | | | | | | | | | | + + + + + + + + | Performing | Address | City/State/Zipcode | Phone Number | | Organization | | | | + + + + + | [facility] | | | | + [...] REFERENCE LAB | | | | | [facility] | | | [address] | | | [place] [address] | | + + + + + + + + | Performing | Address | City/State/Zipcode | Phone Number | | Organization | | | | + + + + + | [facility] | | | | + + + + + | [facility] | see below | | | + + + + + SURGICAL PATHOLOGY (08/10/2018 2:01 PM) + + + + + | Component | Value | Ref Range | Performed At | + + + + + | Clinical History | 72 year old female with | | [facility] | | | a history of metastatic | | OF PATHOLOGY | | | pancreatic | | | | | adenocarcinoma | | | + + + + + | Final Pathologic | A. Liver, Segment 2-3 | | [facility] | | Diagnosis | liver, [...] | PathologistPathology, | | | | | [facility] | | | | | [facility] electronic | | | | | signature [...] | Received is one specimen | | [facility] | | | fresh labeled with the | | OF PATHOLOGY | | | patient's name (initials | | | | | DARIO) and medical record | | | | | number [id number]. | | | | | Liver, Segment [...] | Ancillary | Analyte specific | | [facility] | | Information | reagents [...] | | | | | determined by [facility] | | | | | laboratories. [...] + + | Performing | Address | City/State/[facility] Centercode | Phone Number | | Organization | | | | + + + + + | [facility] | [address] | [place] [address] | | | PATHOLOGY | [address] [...]
--- OUTSIDE RECORDS SUMMARY | ~2018-11-06 | XMS | Encounter Summary ---
Demographics + + + | Address | [address] | | | [place] [address] | + + + | Home Phone [...] | | | | | [place] [address] | | + + + + + Care Team Providers + +------+ + | Care Ship'S Officer Name | Role | Phone | [...] | adenocarcino | [address] | [facility] | | | | | makeda ([facility]) | [facility] | Road | | | | | Procedures | Rd | Mailcode: | | | | | IR PORT | [place], [place] | [address] | | | | | PROCEDURE | [id number] | [place] | | | | | MS INSERT | Phone: | Hospital | | | | | GAETANO CV | [phone] | [facility] | | | | | CATH,W SQ | Fax: | [place], [place] | | | | | PORT,>5 Y/O | [phone] | [address] | | | | | | | Phone: | | | | | | | [phone] | | | | | | | Fax: | | | | | | | [phone] | +--------+--------+ + + + + PROC [...] | adenocarcino | [address] | [facility] | | | | | makeda ([facility]) | [facility] | Road | | | | | Procedures | Rd | Mailcode: | | | | | IR PORT | [place], [place] | [address] | | | | | PROCEDURE | [id number] | [place] | | | | | MS INSERT | Phone: | Hospital | | | | | GAETANO CV | [phone] | [facility] | | | | | Zi RENEE SQ | Fax: | [place], [place] | | | | | PORT,>5 Y/O | [phone] | [address] | | | | | | | Phone: | | | | | | | [phone] | | | | | | | Fax: | | | | | | | [phone] | +--------+--------+ + + + + Reason [...] + + | 08/28/ | Hospital | [address] | Maykel Santacruz MD | | | 2019 | Encounter | [facility] | [address] [facility] | | | | | [address] [place] [address] | [facility] | | | | | [place] [address] | [place], [place] | | | | | [phone] | [address] | | | | | | [phone] | | | | | | | [...] or on weekends contact the ranjit minaya salesperson art objects for your doctor, or call and ask to speak to the [facility] Radiology Fellow salesperson art objects. When the port is not in use, [...] the imaging tab in Epic. Varsha TASH [facility] Varsha Chasidyconstance, TASHJaime Varsha Avalos [facility] - 08/28/2018 9:51 AM PSTINTERVENTIONAL RADIOLOGY [...] in control. VarshaLORY Dietrich, LORY UmañaVarsha nolasco [facility] - 08/27/2018 9:17 PM PSTFormatting of [...] mouth twice daily as needed. ) Fish Oil-[place]-3 Fatty Acids 340-1,000 mg oral capsule Take [...] INRPT 1.08 08/22/2018 Imaging: reviewed Varsha Avalos [facility] TASH [facility] PRE-SEDATION EVALUATION ADVERSE DRUG REACTIONS: No [...] mouth twice daily as needed. ) Fish Oil-[place]-3 Fatty Acids 340-1,000 mg oral capsule Take [...] | | | | | [place] [address] | | +--------+ + + + + | 11/14/ | Office | Hematology & | Taz Mcneal, | | | 2018 | Visit | Oncology | PA-C [address] | | | | | | [address] | | | | | | [facility] [place] | | | | | | [address] | | | | | | [phone] | | | | | | | | +--------+ + + + + | 11/14/ | Appointment | Hematology & | B/C, Pod [address] | | | 2019 | | Oncology | [place] | | | | | | [place] [address] | | +--------+ + + + + | 11/28/ | Clinical | | | | | 2019 | Support | | | | | | Staff | | | | +--------+ + + + + | 11/28/ | Office | Hematology & | Taz Mcneal, | | | 2018 | Visit | Oncology | PA-Cindy [address] [facility] | | | | | | [address] | | | | | | [place] | | | | | | [address] | | | | | | [phone] | | | | | | | | +--------+ + + + + | 11/28/ | Appointment | Hematology & | B/C, Pod [address] | | | 2018 | | Oncology | [place] | | | | | | [place] [address] | | +--------+ + + + + [...] Rd | | | | | | [place], [place] | | | | | | [address] | | | | | | [phone] | | | | | | | | +--------+ + + + + | 12/12/ | Appointment | Hematology & | B/C, Pod [address] | | | 2018 | | Oncology | [place], | | | | | | [place] [address] | | +--------+ + + + + [...] new port | [facility] | | PRIMARY PHOTOGRAPHIC TECHNICIAN: Varsha Avalos MD ANGIOGRAPHY ATTENDING: | RADIOLOGY [...] tip of the indwelling Port-A-Cath. A 5 Cambodian | | | dilator was inserted and [...] exchanged for an 8 | | | Cambodian peel-away sheath. The new catheter was advanced [...] port with placement of new port PRIMARY PHOTOGRAPHIC TECHNICIAN: Varhsa | | MD Robbie ANGIOGRAPHY ATTENDING: Maykel [...] tip of the indwelling Port-A-Cath. A 5 Cambodian dilator was | | inserted and advanced [...] was | | exchanged for an 8 Cambodian peel-away sheath. The new catheter was advanced [...]
--- OUTSIDE RECORDS SUMMARY | ~2018-11-06 | XMS | Encounter Summary ---
Demographics + + + | Address | [address] | | | [place] [address] | + + + | Home Phone [...] | | | | | [place] [address] | | + + + + + Care Team Providers + +------+ + | Care Music Industry Intern Name | Role | Phone | + [...] | Oncology at Center | [address] [facility] | | | | | for Health & Healing | [address] | | | | | [address] | [place], [place] | | | | | Mailcode: [place] | [address] | | | | | for Health and | [phone] | | | | | [facility] [address] | | | | | | [place], [place] | | | | | | [address] | | | | | | [phone] | | | +--------+ + + + [...] [address] | | | | | | [place] [address] | | +--------+ + + + + | 11/14/ | Office | Hematology & | Taz Mcneal, | | | 2018 | Visit | Oncology | PA-C [address] | | | | | | [address] | | | | | | [place] | | | | | | [address] | | | | | | [phone] | | | | | | | | +--------+ + + + + | 11/14/ | Appointment | Hematology & | B/C, Pod [address] | | | 2019 | | Oncology | [place] | | | | | | [place] [address] | | +--------+ + + + + | 11/28/ | Clinical | | | | | 2019 | Support | | | | | | Staff | | | | +--------+ + + + + | 11/28/ | Office | Hematology & | Taz Mcneal, | | | 2018 | Visit | Oncology | PA-Cindy [address] [facility] | | | | | | [address] | | | | | | [place] | | | | | | [address] | | | | | | [phone] | | | | | | | | +--------+ + + + + | 11/28/ | Appointment | Hematology & | B/C, Pod [address] | | | 2018 | | Oncology | [place] | | | | | | [place] [address] | | +--------+ + + + + [...] Rd | | | | | | [place], [place] | | | | | | [address] | | | | | | [phone] | | | | | | | | +--------+ + + + + | 12/12/ | Appointment | Hematology & | B/C, Pod [address] | | | 2018 | | Oncology | [place], | | | | | | [place] [address] | | +--------+ + + + + [...]
--- OUTSIDE RECORDS SUMMARY | ~2018-11-06 | XMS | Encounter Summary ---
Demographics + + + | Address | [address] | | | [place] [address] | + + + | Home Phone [...] | | | | | [place] [address] | | + + + + + Care Team Providers + +------+ + | Care Corporate Communications Manager Name | Role | Phone | [...] | 02/22/ | MyChart | Hematology/Medical | oTni Mccrary, | RE: Chemo schedule | | 2019 | Encounter | Oncology at Center | ,PhD [address] | | | | | for Health & Healing | Ave [place], [place] | | | | | [address] | [address] | | | | | Mailcode: [place] | [phone] | | | | | for Health and | | | | | | Healing, [address] | | | | | | [place], [place] | | | | | | [address] | | | | | | [phone] | | | +--------+ + + + [...] | | | | | [place] [address] | | +--------+ + + + + | 11/14/ | Office | Hematology & | Taz Mcneal, | | | 2018 | Visit | Oncology | PAL[facility] [address] | | | | | | [address] | | | | | | [place] | | | | | | [address] | | | | | | [phone] | | | | | | | | +--------+ + + + + | 11/14/ | Appointment | Hematology & | B/C, Pod [address] | | | 2019 | | Oncology | [place] | | | | | | [place] [address] | | +--------+ + + + + [...] Rd | | | | | | [place], [place] | | | | | | [address] | | | | | | [phone] | | | | | | | | +--------+ + + + + | 11/28/ | Appointment | Hematology & | B/C, Pod [address] | | | 2019 | | Oncology | [place], | | | | | | [place] [address] | | +--------+ + + + + [...] [place] | | | | | | [address] | | | | | | [phone] | | | | | | | | +--------+ + + + + | 12/12/ | Appointment | Hematology & | B/C, Pod [address] | | | 2019 | | Oncology | [place], | | | | | | [place] [address] | | +--------+ + + + + as of this encounter Visit Diagnoses Not on filein this encounter"
--- OUTSIDE RECORDS SUMMARY | ~2018-11-06 | XMS | Encounter Summary ---
Demographics + + + | Address | [address] | | | [place] [address] | + + + | Home Phone [...] | | | | | [place] [address] | | + + + + + Care Team Providers + +------+ + | Care Branch Credit Counselor Name | Role | Phone | + [...] | | 2019 | | Oncology at [place] | ,PhD [address] | (apixaban 5 mg oral | | | | for Health & Healing | [address] [place], [place] | tablet) | | | | [address] | [address] | | | | | Mailcode: [place] | [phone] | | | | | for Health and | | | | | | Healing, [address] | | | | | | [place], [place] | | | | | | [address] | | | | | | [phone] | | | +--------+--------+ + + + [...] | | | | | [place] [address] | | +--------+ + + + + | 11/14/ | Office | Hematology & | Taz Mcneal, | | | 2018 | Visit | Oncology | PA-C [address] | | | | | | [address] | | | | | | [place] | | | | | | [address] | | | | | | [phone] | | | | | | | | +--------+ + + + + | 11/14/ | Appointment | Hematology & | B/C, Pod [address] | | | 2019 | | Oncology | [place] | | | | | | [place] [address] | | +--------+ + + + + | 11/28/ | Clinical | | | | | 2019 | Support | | | | | | Staff | | | | +--------+ + + + + | 11/28/ | Office | Hematology & | Taz Mcneal, | | | 2018 | Visit | Oncology | PA-C [address] [facility] | | | | | | [address] | | | | | | [place] | | | | | | [address] | | | | | | [phone] | | | | | | | | +--------+ + + + + | 11/28/ | Appointment | Hematology & | B/C, Pod [address] | | | 2019 | | Oncology | [place] | | | | | | [place] [address] | | +--------+ + + + + [...] Rd | | | | | | [place], [place] | | | | | | [address] | | | | | | [phone] | | | | | | | | +--------+ + + + + | 12/12/ | Appointment | Hematology & | B/C, Pod [address] | | | 2018 | | Oncology | [place] | | | | | | [place] [address] | | +--------+ + + + + [...]
--- OUTSIDE RECORDS SUMMARY | ~2018-11-06 | XMS | Encounter Summary ---
Demographics + + + | Address | [address] | | | [place] [address] | + + + | Home Phone [...] | | | | | [place] [address] | | + + + + + Care Team Providers + +------+ + | Care Agricultural Economics Teacher Name | Role | Phone | [...] | Oncology at [facility] | [address] [place], | | | | | [address] | [place] [address] | | | | | Mailcode: [place] | | | | | | for Health and | | | | | | Healing, [address] | | | | | | [place], [place] | | | | | | [address] | | | | | | [phone] | | | +--------+ + + + [...] & remote memory intact and discharged with family/driver education instructor, ambulatory an d instructions have been provided. [...] [address] | | | | | | [place] [address] | | +--------+ + + + + | 11/14/ | Office | Hematology & | Taz Mcneal, | | | 2018 | Visit | Oncology | OLYA [address] | | | | | | [address] | | | | | | [place], [place] | | | | | | [address] | | | | | | [phone] | | | | | | | | +--------+ + + + + | 11/14/ | Appointment | Hematology & | B/C, Pod [address] | | | 2018 | | Oncology | [place], | | | | | | [place] [address] | | +--------+ + + + + [...] Rd | | | | | | [facility] [place] [place] | | | | | | [address] | | | | | | [phone] | | | | | | | | +--------+ + + + + | 11/28/ | Appointment | Hematology & | B/C, Pod [address] | | | 2019 | | Oncology | [place], | | | | | | [place] [address] | | +--------+ + + + + | 12/12/ | Clinical | | | | | 2018 | Support | | | | | | Staff | | | | +--------+ + + + + | 12/12/ | Office | Hematology & | Taz Mcneal, | | | 2018 | Visit | Oncology | PA-C [address] [facility] | | | | | | [address] | | | | | | [place] | | | | | | [address] | | | | | | [phone] | | | | | | | | +--------+ + + + + | 12/12/ | Appointment | Hematology & | B/C, Pod [address] | | | 2019 | | Oncology | [address] | | | | | | [place] [address] | | +--------+ + + + + [...] | [facility] | [address] [facility] | [place] [address] | | | OF CARE TESTS | [...] + + + + + | [facility]INT | [address] [facility] | [place] [address] | | | OF CARE TESTS | | | | + + + + + MAGNESIUM, PLASMA (08/22/2018 9:15 AM) + +-------+ + + | Component | Value | Ref Range | Performed At | + +-------+ + + | MAGNESIUM,PLASMA | 2.3 | 1.6 - 2.6 mg/dL | [facility] [...] [facility] | [address] | [place] [address] | | | [address] | [address] [...] | + + + + + | [facility] | [address] | [place] [address] | | | SERVICES, CORE | [address] [...] | + + + + + | [facility] | [address] | [place] [address] | | | SERVICES, EL[address]HA | [address] | | | + + + + + LDH TOTAL, PLASMA (08/22/2018 9:15 AM) + +---------+ + + | Component | Value | Ref Range | Performed At | + +---------+ + + | LD TOTAL, PLASMA | 169 | <=250 U/L | [facility] | | | | | SERVICES, CORE | + +---------+ + + | LD CMNT | No Hemo | | [facility] | | | | | [address] | + +---------+ + + + + | Specimen | + + | Blood - Blood | + + + + + + + | Performing | Address | City/State/Zipcode | Phone Number | | Organization | | | | + + + + + | [facility] | [address] | [place] [address] | | | [address] | [address] [...] | + + + + + | [facility] | [address] | [place] [address] | | | SERVICES, CORE | [address] | | | + + + + + [facility] GI (19-9), SERUM (08/22/2018 9:15 AM) + + + + + | Component | Value | Ref Range | Performed At | + + + + + | [facility] GI (19-9) | 9,458.1 (H) | <=37.0 U/mL | [facility] | | [facility] | | | SERVICES, CORE | + + + + + + + | Specimen | + + | Blood - Blood | + + + + + + + | Performing | Address | City/State/Zipcode | Phone Number | | Organization | | | | + + + + + | [facility] | [address] | [place] [address] | | | SERVICES, CORE | [address] [...] | Intracatheter, ONCE, 1 dose, Wed | Isaebl | PST | | | | | [...]
--- OUTSIDE RECORDS SUMMARY | ~2018-11-06 | XMS | Encounter Summary ---
Demographics + + + | Address | [address] | | | [place] [address] | + + + | Home Phone [...] | | | | | [place] [address] | | + + + + + Care Team Providers + +------+ + | Care Assurance Manager Name | Role | Phone | + +------+ + | Steffi Barraza MD | PCP | | + +------+ + Encounter Details +--------+ + + + + | Date | Type | Department | Care Team | Description | +--------+ + + + + | 10/19/ | Transcribe | Endoscopic | Transcribe | | | 2019 | Orders | Procedural Unit at | Encounter, Provider, | | | | | Jasiel Baker [address] | [address] | | | | | [facility] | [place] [address] | | | | | Road Mailcode: | | | | | | [facility] | | | | | | [address] | | | | | | [place], [place] | | | | | | [address] | | | | | | [phone] | | | +--------+ + + + [...] Rd | | | | | | [place] [address] | | +--------+ + + + + | 11/14/ | Office | Hematology & | Taz Mcneal, | | | 2018 | Visit | Oncology | PA-C [address] | | | | | | [address] | | | | | | [place], [place] | | | | | | [address] | | | | | | [phone] | | | | | | | | +--------+ + + + + | 11/14/ | Appointment | Hematology & | B/C, Pod [address] | | | 2018 | | Oncology | [place], | | | | | | [place] [address] | | +--------+ + + + + [...] [place] | | | | | | [address] | | | | | | [phone] | | | | | | | | +--------+ + + + + | 11/28/ | Appointment | Hematology & | B/C, Pod [address] | | | 2019 | | Oncology | [place], | | | | | | [place] [address] | | +--------+ + + + + [...] Rd | | | | | | [place], [place] | | | | | | [address] | | | | | | [phone] | | | | | | | | +--------+ + + + + | 12/12/ | Appointment | Hematology & | B/C, Pod [address] | | | 2019 | | Oncology | [place], | | | | | | [place] [address] | | +--------+ + + + + as of this encounter Results ERCP (10/23/2018 8:43 AM) + + + | Narrative | Performed At | + + + | MRN: | [facility] | | [id number] Date: 10/23/2018Patient Name: Elaine Gonzalez #: | ENDOSCOPY | | [id number] of : 1945CSN: [id number] Type: | | | AmbulatoryRoom: GI 3Procedure: | | | ERCPIndications: elevated LFTs, hx of metastatic PDAC | | | with new simón dil and early | | | satietyProviders: KELLY PRINCE MD | | | (Doctor), KENYA FELIPE RN | | | (Nurse), GENECREST BASCON (Airplane Pilot Commercial)Referring | | | MD: CARLOS ALAS JR, [...] | procedure. The Olympus | | | [id number] Therapeutic Endoscope #[id number] | | | was introduced through the | | | mouth, and advanced to the | | | duodenum and used to inject contrast into the bile duct. | | | The Olympus [id number] | | | Duodenoscope #[id number] was | | | introduced through the mouth, and advanced to the | | | duodenum and used to locate | | | the major papilla. The | | | Olympus [id number]-[id number] Peds Colonooscope #[id number] was | | | introduced through the mouth, | | | and advanced to the duodenum | | | and used to locate the major papilla. The ERCP | | | was accomplished without | | | difficulty. The patient | | | tolerated the procedure well.Estimated Blood Loss: Estimated | | | blood loss: none.Findings: The tag stringer film was normal. The | | | [...] of Addenda: 0Note Initiated On: 10/23/2018 8:43 [facility] Letter | | | to: STEFFI BARRAZA [...]
--- OUTSIDE RECORDS SUMMARY | ~2018-11-06 | XMS | Encounter Summary ---
Demographics + + + | Address | [address] | | | [place] [address] | + + + | Home Phone [...] | | | | | [place] [address] | | + + + + + Care Team Providers + +------+ + | Care Meterman Name | Role | Phone | + [...] | Oncology at [facility] | [address] [place], | | | | | [address] | [place] [address] | | | | | Mailcode: [place] | | | | | | for Health and | | | | | | Healing, [address] | | | | | | [place], [place] | | | | | | [address] | | | | | | [phone] | | | +--------+ + + + [...] | 1 | 09/13/19 | | | uvlaww-ussmfmbg-adia | meals and 1 | capsule | [...] abdomen Duration: chronic Narrative: Patient here for [place]/Abraxane. PAC right chest accessed with negative blood return. Tpa instilled. R AC accessed with 23g butterfly needle. CBC and CMP were drawn via PIV, resulted via POC and reviewed prior to rel easing labs. Positive blood return on IV line prior and after infusion. Medications infused with 250ml NS sidearm bag. Care handed over to another crew director prior to infusion completing. Refer to MAR [...] Rd | | | | | | [place] [address] | | +--------+ + + + + | 11/14/ | Office | Hematology & | Taz Mcneal, | | | 2019 | Visit | Oncology | [place] [address] | | | | | | [address] | | | | | | [place], [place] | | | | | | [address] | | | | | | [phone] | | | | | | | | +--------+ + + + + | 11/14/ | Appointment | Hematology & | B/C, Pod [address] | | | 2019 | | Oncology | [place], | | | | | | [place] [address] | | +--------+ + + + + [...] Rd | | | | | | [place] | | | | | | [address] | | | | | | [phone] | | | | | | | | +--------+ + + + + | 11/28/ | Appointment | Hematology & | B/C, Pod [address] | | | 2019 | | Oncology | [place], | | | | | | [place] [address] | | +--------+ + + + + | 12/12/ | Clinical | | | | | 2018 | Support | | | | | | Staff | | | | +--------+ + + + + | 12/12/ | Office | Hematology & | Taz Mcneal, | | | 2018 | Visit | Oncology | O[place]A [address] [facility] | | | | | | [address] | | | | | | [place] | | | | | | [address] | | | | | | [phone] | | | | | | | | +--------+ + + + + | 12/12/ | Appointment | Hematology & | B/C, Pod 5[address] | | | 2019 | | Oncology | [address] | | | | | | [place] [address] | | +--------+ + + + + [...] | [facility] | [address] [facility] | [place] [address] | | | OF CARE TESTS | [...] + + | BARBARA OWEN | [address] | [place] [address] | | | OF CARE TESTS | [...]
--- OUTSIDE RECORDS SUMMARY | ~2018-11-06 | XMS | Encounter Summary ---
Demographics + + + | Address | [address] | | | [place] [address] | + + + | Home Phone [...] | | | | | [place] [address] | | + + + + + Care Team Providers + +------+ + | Care Heavy Media Operator Name | Role | Phone | [...] | | 2019 | | Oncology at [place] | ,PhD [address] | | | | | for Health & Healing | [address] [place], [place] | | | | | [address] | [address] | | | | | Mailcode: [place] | [phone] | | | | | for Health and | | | | | | Healing, [address] | | | | | | [place], [place] | | | | | | [address] | | | | | | [phone] | | | +--------+ + + + [...] [address] | | | | | | [place] [address] | | +--------+ + + + + | 11/14/ | Office | Hematology & | Taz Mcneal, | | | 2018 | Visit | Oncology | PA-C [address] | | | | | | [address] | | | | | | [place] | | | | | | [address] | | | | | | [phone] | | | | | | | | +--------+ + + + + | 11/14/ | Appointment | Hematology & | B/C, Pod [address] | | | 2019 | | Oncology | [place] | | | | | | [place] [address] | | +--------+ + + + + | 11/28/ | Clinical | | | | | 2019 | Support | | | | | | Staff | | | | +--------+ + + + + | 11/28/ | Office | Hematology & | Taz Mcneal, | | | 2018 | Visit | Oncology | [place] [address] [facility] | | | | | | [address] | | | | | | [place] | | | | | | [address] | | | | | | [phone] | | | | | | | | +--------+ + + + + | 11/28/ | Appointment | Hematology & | B/C, Pod [address] | | | 2018 | | Oncology | [place] | | | | | | [place] [address] | | +--------+ + + + + | 12/12/ | Clinical | | | | | 2019 | Support | | | | | | Staff | | | | +--------+ + + + + | 12/12/ | Office | Hematology & | Taz Mcneal, | | | 2018 | Visit | Oncology | PA-C [address] [facility] | | | | | | [address] | | | | | | [place], [place] | | | | | | [address] | | | | | | [phone] | | | | | | | | +--------+ + + + + | 12/12/ | Appointment | Hematology & | B/C, Pod [address] | | | 2018 | | Oncology | [place], | | | | | | [place] [address] | | +--------+ + + + + [...]
--- OUTSIDE RECORDS SUMMARY | ~2018-11-06 | XMS | Encounter Summary ---
Demographics + + + | Address | [address] | | | [place] [address] | + + + | Home Phone [...] | | | | | [place] [address] | | + + + + + Care Team Providers + +------+ + | Care Turfgrass Management Professor Name | Role | Phone | [...] Procedural Unit at | D, DDS [address] [facility] | | | | | Jasiel Baker [address] | [address] | | | | | [address] | [place], [place] | | | | | [facility] Mailcode: | [address] | | | | | [facility] [place] | [phone] | | | | | [address] | | | | | | [place], [place] | | | | | | [address] | | | | | | [phone] | | | +--------+ + + + [...] | er - | SL smart port); [id number] REF | | | | Single | [id number] | | | | | | | [...] [address] | | | | | | [place] [address] | | +--------+ + + + + | 11/14/ | Office | Hematology & | Taz Mcneal, | | | 2018 | Visit | Oncology | PA-C [address] | | | | | | [address] | | | | | | [place] | | | | | | [address] | | | | | | [phone] | | | | | | | | +--------+ + + + + | 11/14/ | Appointment | Hematology & | B/C, Pod [address] | | | 2018 | | Oncology | [address] | | | | | | [place] [address] | | +--------+ + + + + [...] Rd | | | | | | [place], [place] | | | | | | [address] | | | | | | [phone] | | | | | | | | +--------+ + + + + | 11/28/ | Appointment | Hematology & | B/C, Pod [address] | | | 2018 | | Oncology | [place], | | | | | | [place] [address] | | +--------+ + + + + [...] Rd | | | | | | [facility] [place] | | | | | | [address] | | | | | | [phone] | | | | | | | | +--------+ + + + + | 12/12/ | Appointment | Hematology & | B/C, Pod [address] | | | 2018 | | Oncology | [address] [place], | | | | | | [place] [address] | | +--------+ + + + + as of this encounter Results ANE ETT (10/23/2018 9:55 AM) + + [...] | INTRAPROCEDURE PRN, Starting Tue | | 09:14 | | | | | 10/23/18 at 0914, Until Mon10/23/18 | | PDT | | | | | at 1020 | | | | | | + +-------+ +---------+---+---+ +---+---+ | | | +---+---+ + +-------+ +---------+---+---+ | glucagon (GLUCAGEN) injection | Given | 10/23/2018 | 0.25 mg | | | | INTRAPROCEDURE PRN, Starting Tue | | 09:47 | | | | | 10/23/18 at 0951, Until 10/23/18 | | PDT | | [...] 09:17 | | | | | Starting Mon10/23/18 at 0917, | | PDT | | | | | Until e 10/23/18 at 1020 | | | | | | + +-------+ +--------+---+---+ +-------+ +-------+---+---+ | Given | 10/23/2018 | 50 mg | | | | | 09:19 | | | | | | PDT | | | | +-------+ +-------+---+---+ +---+---+ | | | +---+---+ in this encounter"
--- OUTSIDE RECORDS SUMMARY | ~2018-11-06 | XMS | Encounter Summary ---
Demographics + + + | Address | [address] | | | [place] [address] | + + + | Home Phone [...] | | | | | [place] [address] | | + + + + + Care Team Providers + +------+ + | Care Market Analyst Name | Role | Phone | [...] | 2019 | Encounter | [facility]cology at [place] | ,PhD [address] | | | | | for Health & Healing | [place], [place] | | | | | [address] | [address] | | | | | Mailcode: [place] | [phone] | | | | | for [facility] and | | | | | | [facility] [address] | | | | | | [place], [place] | | | | | | [address] | | | | | | [phone] | | | +--------+ + + + [...] Rd | | | | | | [place] [address] | | +--------+ + + + + | 11/14/ | Office | Hematology & | Taz Mcneal, | | | 2018 | Visit | Oncology | [place] [address] | | | | | | [address] | | | | | | [place] | | | | | | [address] | | | | | | [phone] | | | | | | | | +--------+ + + + + | 11/14/ | Appointment | Hematology & | B/C, Pod [address] | | | 2018 | | Oncology | [place], | | | | | | [place] [address] | | +--------+ + + + + [...] Rd | | | | | | [place], [place] | | | | | | [address] | | | | | | [phone] | | | | | | | | +--------+ + + + + | 11/28/ | Appointment | Hematology & | B/C, Pod [address] | | | 2018 | | Oncology | [place], | | | | | | [place] [address] | | +--------+ + + + + [...] Rd | | | | | | [place], [place] | | | | | | [address] | | | | | | [phone] | | | | | | | | +--------+ + + + + | 12/12/ | Appointment | Hematology & | B/C, Pod [address] | | | 2019 | | Oncology | [place], | | | | | | [place] [address] | | +--------+ + + + + as of this encounter Visit Diagnoses Not on filein this encounter"
--- OUTSIDE RECORDS SUMMARY | ~2018-11-06 | XMS | Encounter Summary ---
Demographics + + + | Address | [address] | | | [place] [address] | + + + | Home Phone [...] | | | | | [place] [address] | | + + + + + Care Team Providers + +------+ + | Care Civil Rights Investigator Name | Role | Phone | + +------+ + | Piotr Plummer MD | PCP | | + +------+ + Encounter Details +--------+ + + + + | Date | Type | Department | Care Team | Description | +--------+ + + + + | 08/22/ | Hospital | Radiology/Imaging | Toni Mccrary, | | | 2019 | Encounter | Lab at [facility] [address] | ,PhD [address] | | | | | [address] Mailcode: | [place], [place] | | | | | [address] | [address] | | | | | Health and [facility], | [phone] | | | | | [address] [place] [address], | | | | | | [place] [address] | | | | | | [phone] | | | +--------+ + + + [...] [address] | | | | | | [place] [address] | | +--------+ + + + + | 11/14/ | Office | Hematology & | Taz Mcneal, | | | 2018 | Visit | Oncology | PA-C [address] | | | | | | [address] | | | | | | [place], [place] | | | | | | [address] | | | | | | [phone] | | | | | | | | +--------+ + + + + | 11/14/ | Appointment | Hematology & | B/C, Pod [address] | | | 2018 | | Oncology | [place] | | | | | | [place] [address] | | +--------+ + + + + [...] Rd | | | | | | [place], [place] | | | | | | [address] | | | | | | [phone] | | | | | | | | +--------+ + + + + | 11/28/ | Appointment | Hematology & | B/C, Pod [address] | | | 2018 | | Oncology | [place], | | | | | | [place] [address] | | +--------+ + + + + [...] [place] | | | | | | [address] | | | | | | [phone] | | | | | | | | +--------+ + + + + | 12/12/ | Appointment | Hematology & | B/C, Pod [address] | | | 2018 | | Oncology | [address] [place], | | | | | | [place] [address] | | +--------+ + + + + [...] Davis MD | | | Dictation initiated: eFlix Davis MD 08/22/2018 2:57 PM | | [...]
--- OUTSIDE RECORDS SUMMARY | ~2018-11-06 | XMS | Encounter Summary ---
Demographics + + + | Address | [address] | | | [place] [address] | + + + | Home Phone [...] | | | | | [place] [address] | | + + + + + Care Team Providers + +------+ + | Care Balance Wheel Arm Burnisher Name | Role | Phone | + [...] | | 2019 | | Oncology at [place] | ,PhD [address] | | | | | for Health & Healing | [place] [facility] [place] | | | | | [address] | [address] | | | | | Mailcode: [place] | [phone] | | | | | for Health and | | | | | | [address] | | | | | | [place], [place] | | | | | | [address] | | | | | | [phone] | | | +--------+ + + + [...] | | | | | [place] [address] | | +--------+ + + + + | 11/14/ | Office | Hematology & | Taz Mcneal, | | | 2018 | Visit | Oncology | PA-C [address] | | | | | | [address] | | | | | | [place] | | | | | | [address] | | | | | | [phone] | | | | | | | | +--------+ + + + + | 11/14/ | Appointment | Hematology & | B/C, Pod [address] | | | 2018 | | Oncology | [place] | | | | | | [place] [address] | | +--------+ + + + + [...] Rd | | | | | | [place], [place] | | | | | | [address] | | | | | | [phone] | | | | | | | | +--------+ + + + + | 11/28/ | Appointment | Hematology & | B/C, Pod [address] | | | 2018 | | Oncology | [place], | | | | | | [place] [address] | | +--------+ + + + + [...] | | | [facility], [place] | | | | | | [address] | | | | | | [phone] | | | | | | | | +--------+ + + + + | 12/12/ | Appointment | Hematology & | B/C, Pod [address] | | | 2019 | | Oncology | [place], | | | | | | [place] [address] | | +--------+ + + + + as of this encounter Visit Diagnoses Not on filein this encounter"
--- OUTSIDE RECORDS SUMMARY | ~2018-11-06 | XMS | Encounter Summary ---
Demographics + + + | Address | [address] | | | [place] [address] | + + + | Home Phone | | + + + | Preferred Language | Unknown | + + + | Marital Status | | + + + | Mandaen Affiliation | NRP | + + + [...] | | | | | [place] [address] | | + + + + + Care Team Providers + +------+ + | Care Miniature Set Designer Name | Role | Phone | [...] | Oncology at [facility] | [address] [place], | | | | | [address] | [place] [address] | | | | | Mailcode: [place] | | | | | | for Health and | | | | | | [facility] | | | | | | [place], [place] | | | | | | [address] | | | | | | [phone] | | | +--------+ + + + [...] | 1 | 09/13/19 | | | wsbdus-wynftebg-mzsg | meals and 1 | capsule | [...] 0 Location: Duration: Narrative: Patient here for [place]/Abraxane. PAC right chest. 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 Refer to MAR and Onc [...] | | | | | [place] [address] | | +--------+ + + + + | 11/14/ | Office | Hematology & | Taz Mcneal, | | | 2018 | Visit | Oncology | PA-C [address] | | | | | | [address] | | | | | | [facility] | | | | | | [address] | | | | | | [phone] | | | | | | | | +--------+ + + + + | 11/14/ | Appointment | Hematology & | B/C, Pod [address] | | | 2019 | | Oncology | [place] | | | | | | [place] [address] | | +--------+ + + + + [...] Rd | | | | | | [place], [place] | | | | | | [address] | | | | | | [phone] | | | | | | | | +--------+ + + + + | 11/28/ | Appointment | Hematology & | B/C, Pod [address] | | | 2018 | | Oncology | [place], | | | | | | [place] [address] | | +--------+ + + + + [...] [place] | | | | | | [address] | | | | | | [phone] | | | | | | | | +--------+ + + + + | 12/12/ | Appointment | Hematology & | B/C, Pod [address] | | | 2018 | | Oncology | [address] [place], | | | | | | [place] [address] | | +--------+ + + + + [...]
--- OUTSIDE RECORDS SUMMARY | ~2018-11-06 | XMS | Encounter Summary ---
Demographics + + + | Address | [address] | | | [place] [address] | + + + | Home Phone | | + + + | Preferred Language | Unknown | + + + | Marital Status | | + + + | Hinduism Affiliation | NRP | + + + | Race | White | + + + | Ethnic Group | Not or | + + + Author + + + | Author | [facility] | + + + | Organization | [facility] | + + + | Address | Unknown | + + + | Phone | Unavailable | + + + Support + + + + + | Name | Relationship | Address | Phone | + + + + + | ELSA GOODE | ECON | [address] | | | | | [place] [address] | | + + + + + Care Team Providers + +------+ + | Care Band Builder Name | Role | Phone | + +------+ + | Piotr Plummer MD | PCP | | + +------+ + Encounter Details +--------+ + + + + | Date | Type | Department | Care Team | Description | +--------+ + + + + | 08/20/ | Weather Stripper | Hematology/Medical | Toni Mccrary, | | | 2019 | | Oncology at [place] | ,PhD [address] | | | | | for Health & Healing | [place], [place] | | | | | [address] | [address] | | | | | Mailcode: [place] | [phone] | | | | | for Health and | | | | | | Healing, [address] | | | | | | [place], [place] | | | | | | [address] | | | | | | [phone] | | | +--------+ + + + [...] Rd | | | | | | [place] [address] | | +--------+ + + + + | 11/14/ | Office | Hematology & | Taz Mcneal, | | | 2019 | Visit | Oncology | FABIANA-Cindy [address] | | | | | | [address] | | | | | | [facility] [place] | | | | | | [address] | | | | | | [phone] | | | | | | | | +--------+ + + + + | 11/14/ | Appointment | Hematology & | B/C, Pod [address] | | | 2019 | | Oncology | [place], | | | | | | [place] [address] | | +--------+ + + + + [...] [place] | | | | | | [address] | | | | | | [phone] | | | | | | | | +--------+ + + + + | 11/28/ | Appointment | Hematology & | B/C, Pod [address] | | | 2019 | | Oncology | [place], | | | | | | [place] [address] | | +--------+ + + + + [...] Rd | | | | | | [place], [place] | | | | | | [address] | | | | | | [phone] | | | | | | | | +--------+ + + + + | 12/12/ | Appointment | Hematology & | B/C, [address] | | | 2019 | | Oncology | [place], | | | | | | [place] [address] | | +--------+ + + + + as of this encounter Visit Diagnoses Not on filein this encounter"
--- OUTSIDE RECORDS SUMMARY | ~2018-11-06 | XMS | Encounter Summary ---
Demographics + + + | Address | [address] | | | [place] [address] | + + + | Home Phone [...] | | | | | [place] [address] | | + + + + + Care Team Providers + +------+ + | Care Fax Machine Repairer Name | Role | Phone | + [...] | 2019 | on | Oncology at [place] | PharmD [address] | (First cycle | | | | for Health & Healing | [address] | antiemetic teaching) | | | | [address] | [place], [place] | | | | | Mailcode: [place] | [address] | | | | | for Health and | | | | | | Healing, [address] | | | | | | [place], [place] | | | | | | [address] | | | | | | [phone] | | | +--------+ + + + [...] | | | | | [place] [address] | | +--------+ + + + + | 11/14/ | Office | Hematology & | Taz Mcneal, | | | 2018 | Visit | Oncology | PA-C [address] | | | | | | [address] | | | | | | [facility] | | | | | | [address] | | | | | | [phone] | | | | | | | | +--------+ + + + + | 11/14/ | Appointment | Hematology & | B/C, Pod [address] | | | 2019 | | Oncology | [address] | | | | | | [place] [address] | | +--------+ + + + + | 11/28/ | Clinical | | | | | 2018 | Support | | | | | | Staff | | | | +--------+ + + + + | 11/28/ | Office | Hematology & | Taz Mcneal, | | | 2018 | Visit | Oncology | OLYA [address] [facility] | | | | | | [address] | | | | | | [place] | | | | | | [address] | | | | | | [phone] | | | | | | | | +--------+ + + + + | 11/28/ | Appointment | Hematology & | B/C, Pod [address] | | | 2019 | | Oncology | [place] | | | | | | [place] [address] | | +--------+ + + + + | 12/12/ | Clinical | | | | | 2018 | Support | | | | | | Staff | | | | +--------+ + + + + | 12/12/ | Office | Hematology & | Taz Mcneal, | | | 2018 | Visit | Oncology | [facility] [address] [facility] | | | | | | [address] | | | | | | [place] | | | | | | [address] | | | | | | [phone] | | | | | | | | +--------+ + + + + | 12/12/ | Appointment | Hematology & | B/C, [address] | | | 2018 | | Oncology | [place] | | | | | | [place] [address] | | +--------+ + + + + as of this encounter Visit Diagnoses Not on filein this encounter"
--- OUTSIDE RECORDS SUMMARY | ~2018-11-06 | XMS | Clinical Summary ---
Demographics + + + | Address | [address] | | | [place] [address] | + + + | Home Phone | | + + + | Preferred Language | Unknown | + + + | Marital Status | Unknown | + + + | Pentecostal Affiliation | Unknown | + + + | Race | Unknown | + + + | Ethnic Group | Unknown | + + + Author + + + | Author | [facility] | | | and [place] | + + + | Organization | [facility] | | | and [place] | + + + | Address | Unknown | + + + | Phone | Unavailable | + + + Care Team Providers + +------+ + | [employer] Worker Name | Role | Phone | [...]
--- OUTSIDE RECORDS SUMMARY | ~2018-11-06 | XMS | Encounter Summary ---
Demographics + + + | Address | [address] | | | [place] [address] | + + + | Home Phone [...] | | | | | [place] [address] | | + + + + + Care Team Providers + +------+ + | Care Attraction Attendant Name | Role | Phone | [...] | | 2019 | | [facility] [place] | ,PhD [address] | (apixaban 5 mg (74 | | | | for Health & Healing | [address] [place], [place] | tabs) oral | | | | [address] | [address] | tablets,dose pack) | | | | Mailcode: [place] | [phone] | | | | | for Health and | | | | | | Healing, Building [address] | | | | | | [place], [place] | | | | | | [address] | | | | | | [phone] | | | +--------+--------+ + + + [...] Rd | | | | | | [place] [address] | | +--------+ + + + + | 11/14/ | Office | Hematology & | Taz Mcneal, | | | 2018 | Visit | Oncology | OLYA [address] | | | | | | [address] | | | | | | [place], [place] | | | | | | [address] | | | | | | [phone] | | | | | | | | +--------+ + + + + | 11/14/ | Appointment | Hematology & | B/C, Pod [address] | | | 2018 | | Oncology | [place], | | | | | | [place] [address] | | +--------+ + + + + | 11/28/ | Clinical | | | | | 2019 | Support | | | | | | Staff | | | | +--------+ + + + + | 11/28/ | Office | Hematology & | Taz Mcneal, | | | 2018 | Visit | Oncology | PA-C [address] [facility] | | | | | | [address] | | | | | | [place] | | | | | | [address] | | | | | | [phone] | | | | | | | | +--------+ + + + + | 11/28/ | Appointment | Hematology & | B/C, Pod [address] | | | 2019 | | Oncology | [place], | | | | | | [place] [address] | | +--------+ + + + + | 12/12/ | Clinical | | | | | 2019 | Support | | | | | | Staff | | | | +--------+ + + + + | 12/12/ | Office | Hematology & | Taz Mcneal, | | | 2018 | Visit | Oncology | PACristi [address] [facility] | | | | | | [address] | | | | | | [place] | | | | | | [address] | | | | | | [phone] | | | | | | | | +--------+ + + + + | 12/12/ | Appointment | Hematology & | B/C, Pod [address] | | | 2019 | | Oncology | [place], | | | | | | [place] [address] | | +--------+ + + + + [...]
--- OUTSIDE RECORDS SUMMARY | ~2018-11-06 | XMS | Encounter Summary ---
Demographics + + + | Address | [address] | | | [place] [address] | + + + | Home Phone | | + + + | Preferred Language | Unknown | + + + | Marital Status | | + + + | Muslim Affiliation | NRP | + + + [...] | | | | | [place] [address] | | + + + + + Care Team Providers + +------+ + | Care Pencil Inspector Name | Role | Phone | [...] [address] | | | | | | [place] [address] | | | | | | [phone] | | | +--------+ + + + [...] Rd | | | | | | [place] [address] | | +--------+ + + + + | 11/14/ | Office | Hematology & | Taz Mcneal, | | | 2019 | Visit | Oncology | OLYA [address] | | | | | | [address] | | | | | | [place], [place] | | | | | | [address] | | | | | | [phone] | | | | | | | | +--------+ + + + + | 11/14/ | Appointment | Hematology & | B/C, Pod [address] | | | 2019 | | Oncology | [address] [place], | | | | | | [place] [address] | | +--------+ + + + + | 11/28/ | Clinical | | | | | 2018 | Support | | | | | | Staff | | | | +--------+ + + + + | 11/28/ | Office | Hematology & | Taz Mcneal, | | | 2018 | Visit | Oncology | PALjC [address] [facility] | | | | | | [address] | | | | | | [place], [place] | | | | | | [address] | | | | | | [phone] | | | | | | | | +--------+ + + + + | 11/28/ | Appointment | Hematology & | B/C, Pod [address] | | | 2019 | | Oncology | [place], | | | | | | [place] [address] | | +--------+ + + + + | 12/12/ | Clinical | | | | | 2018 | Support | | | | | | Staff | | | | +--------+ + + + + | 12/12/ | Office | Hematology & | Taz Mcneal, | | | 2018 | Visit | Oncology | PA-C [address] [facility] | | | | | | [address] | | | | | | [place] | | | | | | [address] | | | | | | [phone] | | | | | | | | +--------+ + + + + | 12/12/ | Appointment | Hematology & | B/C, Pod [address] | | | 2019 | | Oncology | [place] | | | | | | [place] [address] | | +--------+ + + + + as of this encounter Visit Diagnoses Not on filein this encounter"
--- OUTSIDE RECORDS SUMMARY | ~2018-11-06 | XMS | Encounter Summary ---
Demographics + + + | Address | [address] | | | [place] [address] | + + + | Home Phone [...] | | | | | [place] [address] | | + + + + + Care Team Providers + +------+ + | Care Slot Attendant Name | Role | Phone | [...] | [facility] | [address] [place], | | | | | [address] | [place] [address] | | | | | Mailcode: Center | | | | | | for Health and | | | | | | [facility] | | | | | | [place], [place] | | | | | | [address] | | | | | | [phone] | | | +--------+ + + + [...] Rd | | | | | | [place] [address] | | +--------+ + + + + | 11/14/ | Office | Hematology & | Taz Mcneal, | | | 2018 | Visit | Oncology | OLYA [address] | | | | | | [address] | | | | | | [place], [place] | | | | | | [address] | | | | | | [phone] | | | | | | | | +--------+ + + + + | 11/14/ | Appointment | Hematology & | B/C, Pod [address] | | | 2018 | | Oncology | [place], | | | | | | [place] [address] | | +--------+ + + + + | 11/28/ | Clinical | | | | | 2018 | Support | | | | | | Staff | | | | +--------+ + + + + | 11/28/ | Office | Hematology & | Taz Mcneal, | | | 2018 | Visit | Oncology | PA-C [address] [facility] | | | | | | [address] | | | | | | [place], [place] | | | | | | [address] | | | | | | [phone] | | | | | | | | +--------+ + + + + | 11/28/ | Appointment | Hematology & | B/C, Pod [address] | | | 2018 | | Oncology | [place], | | | | | | [place] [address] | | +--------+ + + + + [...] | | | | | | [facility] | | | | | | [address] | | | | | | [phone] | | | | | | | | +--------+ + + + + | 12/12/ | Appointment | Hematology & | B/C, Pod [address] | | | 2019 | | Oncology | [place], | | | | | | [place] [address] | | +--------+ + + + + [...] | [facility] | [address] [facility] | [place] [address] | | | OF CARE TESTS | [...] + + + + | [facility] | [address] [facility] | [place] [address] | | | OF CARE TESTS | [...] + | KARL OSEGUERA | [address] | [place] [address] | | | SERVICES, CORE | JOLIE [...]
--- OUTSIDE RECORDS SUMMARY | ~2018-11-06 | XMS | Encounter Summary ---
Demographics + + + | Address | [address] | | | [place] [address] | + + + | Home Phone [...] | | | | | [place] [address] | | + + + + + Care Team Providers + +------+ + | Care Drilling Fluids Specialist Name | Role | Phone | [...] + + + + | 08/13/ | Interpreter Deaf | Digestive Health | Tigist Lawrence MD | | | 2019 | | [facility] | [address] | | | | | [address] | [facility], | | | | | Mailcode: [facility] [address] | | | | | for Health and | [phone] | | | | | [facility] 2 | | | | | | [place], [place] | | | | | | [address] | | | | | | [phone] | | | +--------+ + + + [...] [address] | | | | | | [place] [address] | | +--------+ + + + + | 11/14/ | Office | Hematology & | Taz Mcneal, | | | 2019 | Visit | Oncology | PA-C [address] | | | | | | [address] | | | | | | [place] | | | | | | [address] | | | | | | [phone] | | | | | | | | +--------+ + + + + | 11/14/ | Appointment | Hematology & | B/C, Pod [address] | | | 2019 | | Oncology | [place] | | | | | | [place] [address] | | +--------+ + + + + [...] Rd | | | | | | [place], [place] | | | | | | [address] | | | | | | [phone] | | | | | | | | +--------+ + + + + | 11/28/ | Appointment | Hematology & | B/C, Pod [address] | | | 2018 | | Oncology | [place], | | | | | | [place] [address] | | +--------+ + + + + [...] [place] | | | | | | [address] | | | | | | [phone] | | | | | | | | +--------+ + + + + | 12/12/ | Appointment | Hematology & | B/C, Pod [address] | | | 2019 | | Oncology | [place], | | | | | | [place] [address] | | +--------+ + + + + as of this encounter Visit Diagnoses Not on filein this encounter"
--- OUTSIDE RECORDS SUMMARY | ~2018-11-06 | XMS | Encounter Summary ---
Demographics + + + | Address | [address] | | | [place] [address] | + + + | Home Phone [...] | | | | | [place] [address] | | + + + + + Care Team Providers + +------+ + | Care Machine Molder Name | Role | Phone | + [...] | for Health & Healing | [address] [place], [place] | (Primary Dx); Liver | | | | [address] | [address] | metastases (HCC); | | | | Mailcode: Center | [phone] | Right upper quadrant | | | | for Health and | | abdominal pain; | | | | Healing, Building 2 | | Encounter for | | | | [place], [place] | | antineoplastic | | | | [address] | | chemotherapy; | | | | [phone] | | Pancreatic | | | | [...] 1. Metastatic pancreatic adenocarcinoma. --ongoing first line [place] Sue[place]/Abraxane. Tolerating well with significant decline in CA19-9. Note s increasing fatigue. Recent episode of diarrhea requiring ED visit. --No treatment infusion today. Defer C3D1 [place]/Abraxane today to next week (10/24/18) given p [...] | | 2018 | | Oncology | [address] [facility] | | | | | | [place] [address] | | +--------+ + + + + | 11/14/ | Office | Hematology & | Taz Mcneal, | | | 2018 | Visit | Oncology | OLYA [address] | | | | | | [address] | | | | | | [place] | | | | | | [address] | | | | | | [phone] | | | | | | | | +--------+ + + + + | 11/14/ | Appointment | Hematology & | B/C, Pod [address] | | | 2018 | | Oncology | [place], | | | | | | [place] [address] | | +--------+ + + + + [...] Rd | | | | | | [place], [place] | | | | | | [address] | | | | | | [phone] | | | | | | | | +--------+ + + + + | 11/28/ | Appointment | Hematology & | B/C, Pod [address] | | | 2018 | | Oncology | [place] | | | | | | [place] [address] | | +--------+ + + + + [...] Rd | | | | | | [place] | | | | | | [address] | | | | | | [phone] | | | | | | | | +--------+ + + + + | 12/12/ | Appointment | Hematology & | B/C, Pod [address] | | | 2019 | | Oncology | [address] [place], | | | | | | [place] [address] | | +--------+ + + + + [...]
--- OUTSIDE RECORDS SUMMARY | ~2018-11-06 | XMS | Encounter Summary ---
Demographics + + + | Address | [address] | | | [place] [address] | + + + | Home Phone | | + + + | Preferred Language | Unknown | + + + | Marital Status | | + + + | Adventism Affiliation | NRP | + + + [...] | | | | | [place] [address] | | + + + + + Care Team Providers + +------+ + | Care Drug And Alcohol Counselor Name | Role | Phone | [...] + + | 08/10/ | Hospital | [facility] [address] | Martin Carrero, | | | 2019 | Encounter | [address] | [address] | | | | | [address] [place] | [address] | | | | | [place], | [place], [place] | | | | | [place] [address] | [address] | | | | | [phone] | [phone] | | | | | | | [...] See plan below: Tylenol: You may use sado-oon-mxyweav (OTC) acetaminophen (Tylenol) for milder pain. DO [...] | | | | | [place] [address] | | +--------+ + + + + | 11/14/ | Office | Hematology & | Taz Mcneal, | | | 2018 | Visit | Oncology | PA-C [address] | | | | | | [address] | | | | | | [place] | | | | | | [address] | | | | | | [phone] | | | | | | | | +--------+ + + + + | 11/14/ | Appointment | Hematology & | B/C, Pod [address] | | | 2018 | | Oncology | [place] | | | | | | [place] [address] | | +--------+ + + + + | 11/28/ | Clinical | | | | | 2018 | Support | | | | | | Staff | | | | +--------+ + + + + | 11/28/ | Office | Hematology & | Taz Mcneal, | | | 2018 | Visit | Oncology | PACristi [address] [facility] | | | | | | [address] | | | | | | [place] | | | | | | [address] | | | | | | [phone] | | | | | | | | +--------+ + + + + | 11/28/ | Appointment | Hematology & | B/C, Pod [address] | | | 2019 | | Oncology | [place] | | | | | | [place] [address] | | +--------+ + + + + [...] Rd | | | | | | [place] | | | | | | [address] | | | | | | [phone] | | | | | | | | +--------+ + + + + | 12/12/ | Appointment | Hematology & | B/C, Pod [address] | | | 2018 | | Oncology | [place] | | | | | | [place] [address] | | +--------+ + + + + [...] | 3.50 - 10.80 K/cu mm | [facility] | | | | | SERVICES, [...] 37.8 | 35.1 - 46.3 fL | [facility] | | | | | SERVICES, CORE | + + + + + | PLATELET COUNT | 377 | 150 - 400 K/cu mm | [facility] | | | | | SERVICES, CORE | + + + + + | MPV | 9.0 (L) | 9.7 - 12.3 fL | [facility] | | | | | SERVICES, CORE | + + + + + | NRBC% | 0.0 | 0.0 - 0.3 % | [facility] | | | | | SERVICES, CORE | + + + + + | NRBC# | 0.00 | 0.00 - 0.02 K/cu mm | [facility] | | | | | SERVICES, CORE | + + + + + + + | Specimen | + + | Blood - Blood | + + + + + + + | Performing | Address | City/State/Zipcode | Phone Number | | Organization | | | | + + + + + | [facility] | [address] | [place] [address] | | | SERVICES, [place] | [address] | | | + + + + + PROCEDURE NOTE (08/10/2018 4:26 PM)LAPAROSCOPIC LIVER BIOPSY (08/10/2018 2:31 PM) + + + | Narrative | Performed At | + + + | Tigist Lawrence MD 08/10/2018 3:20 PM [facility] | | | Department of Surgery Operative Note Author: Tigist Lawrence MD, | | | [facility] MIS Fellow ID: Elaine Goode Date | | | of the Procedure: 08/10/2018 Preoperative Diagnosis: Metastatic | | | pancreatic cancer to liver Postoperative Diagnosis: same | | | Procedure: 1. Placement of right internal jugular vein Power Port | | | with U/S guidance and floroscopy 2. Diagnostic laparoscopy with | | | liver biopsy Surgeon: Martin Carrero MD Perioperative Educator(s): | | | Tigist Lawrence MD [facility], Galo Oneal MD R5 Indication: [...] port site, through which we fei the 8-brazilian | | | port line itself and [...] | | | Minimally Invasive Surgery Fellow [facility] | | | [place] [address] | | + + + INSERTION OF RIGHT TUNNELED CENTRAL VENOUS CATHETER WITH PORT (08/10/2018 2:31 PM) + + + | Narrative | Performed At | + + + | Tigist Lawrence MD 08/10/2018 3:20 PM [facility] | | | Department of Surgery Operative Note Author: Tigist Lawrence MD, | | | [facility] MIS Fellow ID: Elaine Goode Date | | | of the Procedure: 08/10/2018 Preoperative Diagnosis: Metastatic | | | pancreatic cancer to liver Postoperative Diagnosis: same | | | Procedure: 1. Placement of right internal jugular vein Power Port | | | with U/S guidance and floroscopy 2. Diagnostic laparoscopy with | | | liver biopsy Surgeon: Martin Carrero MD Perioperative Educator(s): | | | Tigist Lawrence MD [facility], Galo Oneal MD R5 Indication: [...] port site, through which we fei the 8-brazilian | | | port line itself and [...] | | | Minimally Invasive Surgery Fellow [facility] | | | [place] [phone] | | + + + LAB OTHER [...] [place] | | LAB | | | [address] | | | + + + + [...] + | Foundation | [facility] | | [facility], [address] [address] | REFERENCE LAB | |[place] [address] | | | | | | | | | | | + + + + + + + + | Performing | Address | City/State/Zipcode | Phone Number | | Organization | | | | + + + + + | [facility] | | | | + + + + + | [facility] | see below | | | + + + + + [facility] (08/10/2018 2:01 PM) + + + + + | Component | Value | Ref Range | Performed At | + + + + + | [facility] | Please see scanned | | [...] REFERENCE LAB | | | | | [facility] | | | [address] | | | [place] [address] | | + + + + + [...] 72 year old female with | | [facility] | | | a history of metastatic | | OF PATHOLOGY | | | pancreatic | | | | | adenocarcinoma | | | + + + + + | Final Pathologic | A. Liver, Segment 2-3 | | [facility] | | Diagnosis | liver, biopsy: [...] | PathologistPathology, | | | | | [facility] | | | | | [facility] | | | | | [...] | Received is one specimen | | [facility] | | | fresh labeled with the | | OF PATHOLOGY | | | patient's name (initials | | | | | DARIO) and medical record | | | | | number [id number]. | | | | | Liver, Segment [...] | Ancillary | Analyte specific | | [facility] | | Information | reagents are [...] | | | | | determined by [facility] | | | | | laboratories. It [...] | + + + + + | [facility] | [address] | [place] [address] | | | PATHOLOGY | [address] [...]
--- OUTSIDE RECORDS SUMMARY | ~2018-11-06 | XMS | Encounter Summary ---
Demographics + + + | Address | [address] | | | [place] [address] | + + + | Home Phone [...] | | | | | [place] [address] | | + + + + + Care Team Providers + +------+ + | Care Automatic Developer Name | Role | Phone | [...] | 2019 | Encounter | [facility] [place] | MICHELE,JONATHANPN [address] | | | | | for Health & Healing | [address] | | | | | [address] | [place], [place] | | | | | Mailcode: [place] | [address] | | | | | for Health and | [phone] | | | | | [facility] | | | | | | [place], [place] | | | | | | [address] | | | | | | [phone] | | | +--------+ + + + [...] | Appointment | Hematology & | Rn, Moustapha Montero | | | 2019 | | Oncology | [address] | | | | | | [place] [address] | | +--------+ + + + + | 11/14/ | Office | Hematology & | Taz Mcneal, | | | 2018 | Visit | Oncology | OLYA [address] | | | | | | [address] | | | | | | [place] | | | | | | [address] | | | | | | [phone] | | | | | | | | +--------+ + + + + | 11/14/ | Appointment | Hematology & | B/C, Pod [address] | | | 2018 | | Oncology | [place], | | | | | | [place] [address] | | +--------+ + + + + [...] Rd | | | | | | [place], [place] | | | | | | [address] | | | | | | [phone] | | | | | | | | +--------+ + + + + | 11/28/ | Appointment | Hematology & | B/C, Pod [address] | | | 2018 | | Oncology | [place] | | | | | | [place] [address] | | +--------+ + + + + [...] Rd | | | | | | [place], [place] | | | | | | [address] | | | | | | [phone] | | | | | | | | +--------+ + + + + | 12/12/ | Appointment | Hematology & | B/C, Pod [address] | | | 2019 | | Oncology | [place], | | | | | | [place] [address] | | +--------+ + + + + as of this encounter Visit Diagnoses Not on filein this encounter"
--- OUTSIDE RECORDS SUMMARY | ~2018-11-06 | XMS | Encounter Summary ---
Demographics + + + | Address | [address] | | | [place] [address] | + + + | Home Phone [...] | | | | | [place] [address] | | + + + + + Care Team Providers + +------+ + | Care Registered Dietitian Name | Role | Phone | + [...] | 2019 | Encounter | Oncology at [place] | MICHELE,JONATHANPN [address] | | | | | for Health & Healing | [address] | | | | | [address] | [place], [place] | | | | | Mailcode: [place] | [address] | | | | | for Health and | [phone] | | | | | [facility] | | | | | | [place], [place] | | | | | | [address] | | | | | | [phone] | | | +--------+ + + + [...] [address] | | | | | | [place] [address] | | +--------+ + + + + | 11/14/ | Office | Hematology & | Taz Mcneal, | | | 2018 | Visit | Oncology | OLYA [address] | | | | | | [address] | | | | | | [place] | | | | | | [address] | | | | | | [phone] | | | | | | | | +--------+ + + + + | 11/14/ | Appointment | Hematology & | B/C, Pod [address] | | | 2018 | | Oncology | [place], | | | | | | [place] [address] | | +--------+ + + + + [...] Rd | | | | | | [place], [place] | | | | | | [address] | | | | | | [phone] | | | | | | | | +--------+ + + + + | 11/28/ | Appointment | Hematology & | B/C, Pod [address] | | | 2018 | | Oncology | [place] | | | | | | [place] [address] | | +--------+ + + + + [...] Rd | | | | | | [place], [place] | | | | | | [address] | | | | | | [phone] | | | | | | | | +--------+ + + + + | 12/12/ | Appointment | Hematology & | B/C, Pod [address] | | | 2019 | | Oncology | [place], | | | | | | [place] [address] | | +--------+ + + + + as of this encounter Visit Diagnoses Not on filein this encounter"
--- OUTSIDE RECORDS SUMMARY | ~2018-11-06 | XMS | Encounter Summary ---
Demographics + + + | Address | [address] | | | [place] [address] | + + + | Home Phone [...] | | | | | [place] [address] | | + + + + + Care Team Providers + +------+ + | Care Concrete Engineering Technician Name | Role | Phone | + +------+ + | Piotr Plummer MD | PCP | | + +------+ + Encounter Details +--------+ + + + + | Date | Type | Department | Care Team | Description | +--------+ + + + + | 10/02/ | Herpetology Teacher | Hematology/Medical | Toni Mccrary, | | | 2019 | | [facility] [place] | ,PhD [address] | | | | | for Health & Healing | [place], [place] | | | | | [address] | [address] | | | | | Mailcode: [place] | [phone] | | | | | for Health and | | | | | | Healing, Building [address] | | | | | | [place], [place] | | | | | | [address] | | | | | | [phone] | | | +--------+ + + + [...] Rd | | | | | | [place] [address] | | +--------+ + + + + | 11/14/ | Office | Hematology & | Taz Mcneal, | | | 2019 | Visit | Oncology | FABIANA-Cindy [address] | | | | | | [address] | | | | | | [facility] [place] | | | | | | [address] | | | | | | [phone] | | | | | | | | +--------+ + + + + | 11/14/ | Appointment | Hematology & | B/C, Pod [address] | | | 2019 | | Oncology | [place], | | | | | | [place] [address] | | +--------+ + + + + [...] [place] | | | | | | [address] | | | | | | [phone] | | | | | | | | +--------+ + + + + | 11/28/ | Appointment | Hematology & | B/C, Pod [address] | | | 2019 | | Oncology | [place], | | | | | | [place] [address] | | +--------+ + + + + | 12/12/ | Clinical | | | | | 2019 | Support | | | | | | Staff | | | | +--------+ + + + + | 12/12/ | Office | Hematology & | Taz Mcneal, | | | 2018 | Visit | Oncology | PA-C [address] [facility] | | | | | | [address] | | | | | | [place], [place] | | | | | | [address] | | | | | | [phone] | | | | | | | | +--------+ + + + + | 12/12/ | Appointment | Hematology & | B/C, Pod [address] | | | 2019 | | Oncology | [place], | | | | | | [place] [address] | | +--------+ + + + + as of this encounter Visit Diagnoses Not on filein this encounter"
--- OUTSIDE RECORDS SUMMARY | ~2018-11-06 | XMS | Encounter Summary ---
Demographics + + + | Address | [address] | | | [place] [address] | + + + | Home Phone [...] | | | | | [place] [address] | | + + + + + Care Team Providers + +------+ + | Care Preschool Adviser Name | Role | Phone | + [...] | | 2019 | | [facility] | ,PhD [address] | (cycle 1, day 1 of | | | | for Health & Healing | [facility] [place] | gemcitabine, | | | | [address] | [address] | Abraxane); Treatment | | | | Mailcode: [facility] | [phone] | Questions | | | | for Health and | | | | | | Healing, Building [address] | | | | | | [place], [place] | | | | | | [address] | | | | | | [phone] | | | +--------+ + + + [...] Rd | | | | | | [place] [address] | | +--------+ + + + + | 11/14/ | Office | Hematology & | Taz Mcneal, | | | 2018 | Visit | Oncology | OLYA [address] | | | | | | [address] | | | | | | [place], [place] | | | | | | [address] | | | | | | [phone] | | | | | | | | +--------+ + + + + | 11/14/ | Appointment | Hematology & | B/C, Pod [address] | | | 2019 | | Oncology | [place], | | | | | | [place] [address] | | +--------+ + + + + [...] [place] | | | | | | [address] | | | | | | [phone] | | | | | | | | +--------+ + + + + | 11/28/ | Appointment | Hematology & | B/C, Pod [address] | | | 2019 | | Oncology | [place], | | | | | | [place] [address] | | +--------+ + + + + | 12/12/ | Clinical | | | | | 2018 | Support | | | | | | Staff | | | | +--------+ + + + + | 12/12/ | Office | Hematology & | Taz Mcneal, | | | 2018 | Visit | Oncology | OLYA [address] [facility] | | | | | | [address] | | | | | | [place] | | | | | | [address] | | | | | | [phone] | | | | | | | | +--------+ + + + + | 12/12/ | Appointment | Hematology & | B/C, Pod [address] | | | 2019 | | Oncology | [place] | | | | | | [place] [address] | | +--------+ + + + + as of this encounter Visit Diagnoses Not on filein this encounter"
--- OUTSIDE RECORDS SUMMARY | ~2018-11-06 | XMS | Encounter Summary ---
Demographics + + + | Address | [address] | | | [place] [address] | + + + | Home Phone [...] | | | | | [place] [address] | | + + + + + Care Team Providers + +------+ + | Care Fruit And Vegetable Classer Name | Role | Phone | + [...] | for Health & Healing | [address] [place], [place] | (Primary Dx); Liver | | | | [address] | [address] | metastases (HCC); | | | | Mailcode: Center | [phone] | Right upper quadrant | | | | for Health and | | abdominal pain; | | | | Healing, Building 2 | | Encounter for | | | | [place], [place] | | antineoplastic | | | | [address] | | chemotherapy; | | | | [phone] | | Pancreatic | | | | [...] 1. Metastatic pancreatic adenocarcinoma. --ongoing first line [place]/Abraxane. Tolerating well with significant decline in CA19-9. Note s increasing fatigue. Recent episode of diarrhea requiring ED visit. --No treatment infusion today. Defer C3D1 [place]/Abraxane today to next week (10/24/18) given p [...] | | 2018 | | Oncology | [address] [facility] | | | | | | [place] [address] | | +--------+ + + + + | 11/14/ | Office | Hematology & | Taz Mcneal, | | | 2018 | Visit | Oncology | OLYA [address] | | | | | | [address] | | | | | | [place] | | | | | | [address] | | | | | | [phone] | | | | | | | | +--------+ + + + + | 11/14/ | Appointment | Hematology & | B/C, Pod [address] | | | 2018 | | Oncology | [place], | | | | | | [place] [address] | | +--------+ + + + + [...] Rd | | | | | | [place], [place] | | | | | | [address] | | | | | | [phone] | | | | | | | | +--------+ + + + + | 11/28/ | Appointment | Hematology & | B/C, Pod [address] | | | 2018 | | Oncology | [place] | | | | | | [place] [address] | | +--------+ + + + + [...] Rd | | | | | | [place] | | | | | | [address] | | | | | | [phone] | | | | | | | | +--------+ + + + + | 12/12/ | Appointment | Hematology & | B/C, Pod [address] | | | 2019 | | Oncology | [place], | | | | | | [place] [address] | | +--------+ + + [...]
--- OUTSIDE RECORDS SUMMARY | ~2018-11-06 | XMS | Encounter Summary ---
Demographics + + + | Address | [address] | | | [place] [address] | + + + | Home Phone [...] | | | | | [place] [address] | | + + + + + Care Team Providers + +------+ + | Care Chargemaster Specialist Name | Role | Phone | [...] [address]VE | | | | | [facility] | [place] [address] | | | | | Road Mailcode: | | | | | | [address] | | | | | | [address] | | | | | | [place], [place] | | | | | | [address] | | | | | | [phone] | | | +--------+ + + + [...] Rd | | | | | | [place] [address] | | +--------+ + + + + | 11/14/ | Office | Hematology & | Taz Mcneal, | | | 2018 | Visit | Oncology | PA-C [address] | | | | | | [address] | | | | | | [place], [place] | | | | | | [address] | | | | | | [phone] | | | | | | | | +--------+ + + + + | 11/14/ | Appointment | Hematology & | B/C, Pod [address] | | | 2018 | | Oncology | [place], | | | | | | [place] [address] | | +--------+ + + + + [...] [place] | | | | | | [address] | | | | | | [phone] | | | | | | | | +--------+ + + + + | 11/28/ | Appointment | Hematology & | B/C, Pod [address] | | | 2019 | | Oncology | [place], | | | | | | [place] [address] | | +--------+ + + + + [...] Rd | | | | | | [place], [place] | | | | | | [address] | | | | | | [phone] | | | | | | | | +--------+ + + + + | 12/12/ | Appointment | Hematology & | B/C, Pod [address] | | | 2019 | | Oncology | [place], | | | | | | [place] [address] | | +--------+ + + + + as of this encounter Results ERCP (10/23/2018 8:43 AM) + + + | Narrative | Performed At | + + + | MRN: | [facility] | | [id number] Date: 10/23/2018Patient Name: Elaine Gonzalez #: | ENDOSCOPY | | [id number] of : 1945CSN: [id number] Type: | | | AmbulatoryRoom: GI 3Procedure: | | | ERCPIndications: elevated LFTs, hx of metastatic PDAC | | | with new simón dil and early | | | satietyProviders: KELLY PRINCE MD | | | (Doctor), KENYA FELIPE RN | | | (Nurse), GENECREST BASCON (Gun Number)Referring | | | MD: CARLOS ALAS JR, MDRequesting Provider: | | | Medicines: Indomethacin 100 mg TX, General | | | AnesthesiaComplications: No immediate [...] | procedure. The Olympus | | | [id number] Therapeutic Endoscope #[id number] | | | was introduced through the | | | mouth, and advanced to the | | | duodenum and used to inject contrast into the bile duct. | | | The Olympus [id number]-160VF | | | Duodenoscope #[id number] was | | | introduced through the mouth, and advanced to the | | | duodenum and used to locate | | | the major papilla. The | | | Olympus [id number]-[id number] Peds Colonooscope #[id number] was | | | introduced through the mouth, | | | and advanced to the duodenum | | | and used to locate the major papilla. The ERCP | | | was accomplished without | | | difficulty. The patient | | | tolerated the procedure well.Estimated Blood Loss: Estimated | | | blood loss: none.Findings: The car salter film was normal. The | | | [...] of Addenda: 0Note Initiated On: 10/23/2018 8:43 [facility] Letter | | | to: [...]
--- OUTSIDE RECORDS SUMMARY | ~2018-11-06 | XMS | Encounter Summary ---
Demographics + + + | Address | [address] | | | [place] [address] | + + + | Home Phone [...] | | | | | [place] [address] | | + + + + + Care Team Providers + +------+ + | Care Power Plant Operator Apprentice Name | Role | Phone | [...] | | | | | | makeda ([facility]) | [address] | | | | | | Central line | Rd | | | | | | clotted, | [place], [place] | | | | | | initial | [address] | | | | | | encounter | Phone: | | | | | | (HCC) | [phone] | | | | | | Procedures | Fax: | | | | | | [facility] PORT | [phone] | | | | | | PROCEDURE | | | + +--------+ + + + + Encounter Details +--------+ + + + + | Date | Type | Department | Care Team | Description | +--------+ + + + + | 08/22/ | Machine Shop Helper | Digestive Health | Martin Carrero, | Pancreatic | | 2019 | | [facility] [address] | [address] | adenocarcinoma (HCC) | | | | [address] | [address] | (Primary Dx); | | | | Mailcode: Center | [place], [place] | Central line | | | | for Health and | [address] | clotted, initial | | | | Healing, Building 2 | [phone] | encounter (HCC) | | | | [place], [place] | | | | | | [address] | | | | | | [phone] | | | +--------+ + + + [...] | | | | | [place] [address] | | +--------+ + + + + | 11/14/ | Office | Hematology & | Taz Mcneal, | | | 2018 | Visit | Oncology | PA-C [address] | | | | | | [address] | | | | | | [place], [place] | | | | | | [address] | | | | | | [phone] | | | | | | | | +--------+ + + + + | 11/14/ | Appointment | Hematology & | B/C, Pod [address] | | | 2018 | | Oncology | [place], | | | | | | [place] [address] | | +--------+ + + + + [...] [place] | | | | | | [address] | | | | | | [phone] | | | | | | | | +--------+ + + + + | 11/28/ | Appointment | Hematology & | B/C, Pod [address] | | | 2019 | | Oncology | [place], | | | | | | [place] [address] | | +--------+ + + + + | 12/12/ | Clinical | | | | | 2018 | Support | | | | | | Staff | | | | +--------+ + + + + | 12/12/ | Office | Hematology & | Taz Mcneal, | | | 2018 | Visit | Oncology | O[place]A [address] | | | | | | [address] | | | | | | [place], [place] | | | | | | [address] | | | | | | [phone] | | | | | | | | +--------+ + + + + | 12/12/ | Appointment | Hematology & | B/C, Pod [address] | | | 2018 | | Oncology | [place], | | | | | | [place] [address] | | +--------+ + + + + [...]
--- OUTSIDE RECORDS SUMMARY | ~2018-11-06 | XMS | Encounter Summary ---
Demographics + + + | Address | [address] | | | [place] [address] | + + + | Home Phone [...] | | | | | [place] [address] | | + + + + + Care Team Providers + +------+ + | Care Label Remover Name | Role | Phone | + [...] | [facility] | [address] [place], | | | | | [address] | [place] [address] | | | | | Mailcode: Center | | | | | | for Health and | | | | | | [facility] 2 | | | | | | [place], [place] | | | | | | [address] | | | | | | [phone] | | | +--------+ + + + [...] | 1 | 09/13/19 | | | dqfgub-[id number]-odgn | meals and 1 | capsule | [...] ok at this time. Labs drawn by [place] supervisor finishing department, reviewed. Abraxane checked with 2 RNs per [...] | | | | | | [place] [address] | | +--------+ + + + + | 11/14/ | Office | Hematology & | Taz Mcneal, | | | 2019 | Visit | Oncology | O[place]A [address] | | | | | | [address] | | | | | | [place], [place] | | | | | | [address] | | | | | | [phone] | | | | | | | | +--------+ + + + + | 11/14/ | Appointment | Hematology & | B/C, Pod [address] | | | 2019 | | Oncology | [place], | | | | | | [place] [address] | | +--------+ + + + + [...] [place] | | | | | | [address] | | | | | | [phone] | | | | | | | | +--------+ + + + + | 11/28/ | Appointment | Hematology & | B/C, Pod [address] | | | 2019 | | Oncology | [place], | | | | | | [place] [address] | | +--------+ + + + + | 12/12/ | Clinical | | | | | 2018 | Support | | | | | | Staff | | | | +--------+ + + + + | 12/12/ | Office | Hematology & | Taz Mcneal, | | | 2018 | Visit | Oncology | OLYA [address] [facility] | | | | | | [address] | | | | | | [place] | | | | | | [address] | | | | | | [phone] | | | | | | | | +--------+ + + + + | 12/12/ | Appointment | Hematology & | B/C, Pod [address] | | | 2019 | | Oncology | [place] | | | | | | [place] [address] | | +--------+ + + + + [...]
--- OUTSIDE RECORDS SUMMARY | ~2018-11-06 | XMS | Encounter Summary ---
Demographics + + + | Address | [address] | | | [place] [address] | + + + | Home Phone [...] | | | | | [place] [address] | | + + + + + Care Team Providers + +------+ + | Care Academic Services Professional Name | Role | Phone | + [...] | | 2019 | | [facility] | ,PhD [address] | Request (apixaban 5 | | | | for Health & Healing | [place], [place] | mg (74 tabs) oral | | | | [address] | [address] | tablets,dose pack) | | | | Mailcode: [facility] | [phone] | | | | | for Health and | | | | | | Healing, Building [address] | | | | | | [place], [place] | | | | | | [address] | | | | | | [phone] | | | +--------+ + + + [...] Rd | | | | | | [place] [address] | | +--------+ + + + + | 11/14/ | Office | Hematology & | Taz Mcneal, | | | 2019 | Visit | Oncology | [place] [address] | | | | | | [address] | | | | | | [place], [place] | | | | | | [address] | | | | | | [phone] | | | | | | | | +--------+ + + + + | 11/14/ | Appointment | Hematology & | B/C, Pod [address] | | | 2019 | | Oncology | [place], | | | | | | [place] [address] | | +--------+ + + + + | 11/28/ | Clinical | | | | | 2018 | Support | | | | | | Staff | | | | +--------+ + + + + | 11/28/ | Office | Hematology & | Taz Mcneal, | | | 2018 | Visit | Oncology | PA-C [address] [facility] | | | | | | [address] | | | | | | [place] | | | | | | [address] | | | | | | [phone] | | | | | | | | +--------+ + + + + | 11/28/ | Appointment | Hematology & | B/C, Pod [address] | | | 2019 | | Oncology | [place] | | | | | | [place] [address] | | +--------+ + + + + [...] [place] | | | | | | [address] | | | | | | [phone] | | | | | | | | +--------+ + + + + | 12/12/ | Appointment | Hematology & | B/C, Pod [address] | | | 2019 | | Oncology | [place] | | | | | | [place] [address] | | +--------+ + + + + as of this encounter Visit Diagnoses Not on filein this encounter"
--- OUTSIDE RECORDS SUMMARY | ~2018-11-06 | XMS | Encounter Summary ---
Demographics + + + | Address | [address] | | | [place] [address] | + + + | Home Phone [...] | | | | | [place] [address] | | + + + + + Care Team Providers + +------+ + | Care Belt Maker Helper Name | Role | Phone | [...] Procedural Unit at | D, DDS [address] [facility] | | | | | Jasiel Bakre [address] | [address] | | | | | [address] | [place], [place] | | | | | [facility] Mailcode: | [address] | | | | | [address] [place] | [phone] | | | | | [address] | | | | | | [place], [place] | | | | | | [address] | | | | | | [phone] | | | +--------+ + + + [...] | er - | SL smart port); [id number] REF | | | | Single | [id number] | | | | | | | [...] [address] | | | | | | [place] [address] | | +--------+ + + + + | 11/14/ | Office | Hematology & | Taz Mcneal, | | | 2018 | Visit | Oncology | PA-C [address] | | | | | | [address] | | | | | | [place] | | | | | | [address] | | | | | | [phone] | | | | | | | | +--------+ + + + + | 11/14/ | Appointment | Hematology & | B/C, Pod [address] | | | 2018 | | Oncology | [place] | | | | | | [place] [address] | | +--------+ + + + + [...] Rd | | | | | | [place], [place] | | | | | | [address] | | | | | | [phone] | | | | | | | | +--------+ + + + + | 11/28/ | Appointment | Hematology & | B/C, Pod [address] | | | 2018 | | Oncology | [place], | | | | | | [place] [address] | | +--------+ + + + + [...] [place] | | | | | | [address] | | | | | | [phone] | | | | | | | | +--------+ + + + + | 12/12/ | Appointment | Hematology & | B/C, Pod [address] | | | 2018 | | Oncology | [place], | | | | | | [place] [address] | | +--------+ + + + + [...]
--- OUTSIDE RECORDS SUMMARY | ~2018-11-06 | XMS | Encounter Summary ---
Demographics + + + | Address | [address] | | | [place] [address] | + + + | Home Phone [...] | | | | | [place] [address] | | + + + + + Care Team Providers + +------+ + | Care Predatory Animal Hunter Name | Role | Phone | + [...] | (10/23/18) | | | | Jasiel [place] [address] | [facility] | | | | | [facility] | [place], [place] | | | | | Road Mailcode: | [address] | | | | | [address] | [phone] | | | | | [address] | | | | | | [place], [place] | | | | | | [address] | | | | | | [phone] | | | +--------+ + + + [...] | | | | | [place] [address] | | +--------+ + + + + | 11/14/ | Office | Hematology & | Taz Mcneal, | | | 2018 | Visit | Oncology | PA-C [address] | | | | | | [address] | | | | | | [place] | | | | | | [address] | | | | | | [phone] | | | | | | | | +--------+ + + + + | 11/14/ | Appointment | Hematology & | B/C, Pod [address] | | | 2019 | | Oncology | [place] | | | | | | [place] [address] | | +--------+ + + + + | 11/28/ | Clinical | | | | | 2018 | Support | | | | | | Staff | | | | +--------+ + + + + | 11/28/ | Office | Hematology & | Taz Mcneal, | | | 2018 | Visit | Oncology | PA-Cindy [address] [facility] | | | | | | [address] | | | | | | [place] | | | | | | [address] | | | | | | [phone] | | | | | | | | +--------+ + + + + | 11/28/ | Appointment | Hematology & | B/C, Pod [address] | | | 2019 | | Oncology | [place] | | | | | | [place] [address] | | +--------+ + + + + | 12/12/ | Clinical | | | | | 2018 | Support | | | | | | Staff | | | | +--------+ + + + + | 12/12/ | Office | Hematology & | Taz Mcneal, | | | 2018 | Visit | Oncology | OLYA [address] [facility] | | | | | | [address] | | | | | | [place] | | | | | | [address] | | | | | | [phone] | | | | | | | | +--------+ + + + + | 12/12/ | Appointment | Hematology & | B/C, Pod [address] | | | 2018 | | Oncology | [place], | | | | | | [place] [address] | | +--------+ + + + + as of this encounter Visit Diagnoses Not on filein this encounter"
--- OUTSIDE RECORDS SUMMARY | ~2018-11-06 | XMS | Encounter Summary ---
Demographics + + + | Address | [address] | | | [place] [address] | + + + | Home Phone [...] | | | | | [place] [address] | | + + + + + Care Team Providers + +------+ + | Care Advertising Executive Name | Role | Phone | + [...] | | | Zach Farley | [place], [place] | | | | | Mailcode: CH7M | [address] | | | | | [facility] | [phone] | | | | | and [facility] | | | | | | Floor [place], [place] | | | | | | [address] | | | | | | [phone] | | | +--------+ + + + [...] [address] | | | | | | [place] [address] | | +--------+ + + + + | 11/14/ | Office | Hematology & | Taz Mcneal, | | | 2018 | Visit | Oncology | PA-C [address] | | | | | | [address] | | | | | | [place], [place] | | | | | | [address] | | | | | | [phone] | | | | | | | | +--------+ + + + + | 11/14/ | Appointment | Hematology & | B/C, Pod [address] | | | 2019 | | Oncology | [place] | | | | | | [place] [address] | | +--------+ + + + + [...] Rd | | | | | | [place], [place] | | | | | | [address] | | | | | | [phone] | | | | | | | | +--------+ + + + + | 11/28/ | Appointment | Hematology & | B/C, Pod [address] | | | 2018 | | Oncology | [place], | | | | | | [place] [address] | | +--------+ + + + + [...] [place] | | | | | | [address] | | | | | | [phone] | | | | | | | | +--------+ + + + + | 12/12/ | Appointment | Hematology & | B/C, Pod [address] | | | 2019 | | Oncology | [place], | | | | | | [place] [address] | | +--------+ + + + + as of this encounter Visit Diagnoses Not on filein this encounter"
--- OUTSIDE RECORDS SUMMARY | ~2018-11-06 | XMS | Encounter Summary ---
Demographics + + + | Address | [address] | | | [place] [address] | + + + | Home Phone [...] | | | | | [place] [address] | | + + + + + Care Team Providers + +------+ + | Care Fish And Game Warden Name | Role | Phone | + [...] | | | | Mailcode: Center | [place], [place] | | | | | [facility] and | [address] | | | | | Healing, Building [address] | | | | | | [place], [place] | | | | | | [address] | | | | | | [phone] | | | +--------+ + + + [...] [address]ra | | | | | | [place] [address] | | +--------+ + + + + | 11/14/ | Office | Hematology & | Taz Mcneal, | | | 2018 | Visit | Oncology | PA-C [address] | | | | | | [address] | | | | | | [place] | | | | | | [address] | | | | | | [phone] | | | | | | | | +--------+ + + + + | 11/14/ | Appointment | Hematology & | B/C, Pod [address] | | | 2019 | | Oncology | [place] | | | | | | [place] [address] | | +--------+ + + + + [...] [place] | | | | | | [address] | | | | | | [phone] | | | | | | | | +--------+ + + + + | 11/28/ | Appointment | Hematology & | B/C, Pod [address] | | | 2018 | | Oncology | [place], | | | | | | [place] [address] | | +--------+ + + + + [...] | | | | | | [place] | | | | | | [address] | | | | | | [phone] | | | | | | | | +--------+ + + + + | 12/12/ | Appointment | Hematology & | B/C, Pod [address] | | | 2019 | | Oncology | [place], | | | | | | [place] [address] | | +--------+ + + + + as of this encounter Visit Diagnoses Not on filein this encounter"
--- OUTSIDE RECORDS SUMMARY | ~2018-11-06 | XMS | Encounter Summary ---
Demographics + + + | Address | [address] | | | [place] [address] | + + + | Home Phone [...] | | | | | [place] [address] | | + + + + + Care Team Providers + +------+ + | Care Conveyor Installer Name | Role | Phone | [...] | | 2019 | | Oncology at [facility] | ,PhD [address] | (Bio Stent ) | | | | [address] | [place], [place] | | | | | Mailcode: [place] | [address] | | | | | for Health and | [phone] | | | | | [facility] 2 | | | | | | [place], [place] | | | | | | [address] | | | | | | [phone] | | | +--------+ + + + [...] | | | | | | [place] [address] | | +--------+ + + + + | 11/14/ | Office | Hematology & | Taz Mcneal, | | | 2018 | Visit | Oncology | PA-C [address] | | | | | | [address] | | | | | | [place] | | | | | | [address] | | | | | | [phone] | | | | | | | | +--------+ + + + + | 11/14/ | Appointment | Hematology & | B/C, Pod [address] | | | 2019 | | Oncology | [place] | | | | | | [place] [address] | | +--------+ + + + + | 11/28/ | Clinical | | | | | 2019 | Support | | | | | | Staff | | | | +--------+ + + + + | 11/28/ | Office | Hematology & | Taz Mcneal, | | | 2018 | Visit | Oncology | PA-Cindy [address] [facility] | | | | | | [address] | | | | | | [place] | | | | | | [address] | | | | | | [phone] | | | | | | | | +--------+ + + + + | 11/28/ | Appointment | Hematology & | B/C, [address] | | | 2018 | | Oncology | [place] | | | | | | [place] [address] | | +--------+ + + + + | 12/12/ | Clinical | | | | | 2018 | Support | | | | | | Staff | | | | +--------+ + + + + | 12/12/ | Office | Hematology & | Taz Mcneal, | | | 2019 | Visit | Oncology | [facility] [address] [facility] | | | | | | [address] | | | | | | [place] | | | | | | [address] | | | | | | [phone] | | | | | | | | +--------+ + + + + | 12/12/ | Appointment | Hematology & | B/C, [address] | | | 2019 | | Oncology | [place], | | | | | | [place] [address] | | +--------+ + + + + as of this encounter Visit Diagnoses Not on filein this encounter"
--- OUTSIDE RECORDS SUMMARY | ~2018-11-06 | XMS | Encounter Summary ---
Demographics + + + | Address | [address] | | | [place] [address] | + + + | Home Phone [...] | | | | | [place] [address] | | + + + + + Care Team Providers + +------+ + | Care Aoc Director Intelligence Officer Name | Role | Phone | + +------+ + | Piotr Plummer MD | PCP | | + +------+ + Encounter Details +--------+ + + + + | Date | Type | Department | Care Team | Description | +--------+ + + + + | 08/28/ | Die Repairer Trimmer Dies | Hematology/Medical | Toni Mccrary, | | | 2019 | | [facility] at [place] | ,PhD [address] | | | | | for Health & Healing | [place], [place] | | | | | [address] | [address] | | | | | Mailcode: [place] | [phone] | | | | | for Health and | | | | | | Healing, [address] | | | | | | [place], [place] | | | | | | [address] | | | | | | [phone] | | | +--------+ + + + [...] Rd | | | | | | [place] [address] | | +--------+ + + + + | 11/14/ | Office | Hematology & | Taz Mcneal, | | | 2019 | Visit | Oncology | FABIANA-Cindy [address] | | | | | | [address] | | | | | | [facility] [place] | | | | | | [address] | | | | | | [phone] | | | | | | | | +--------+ + + + + | 11/14/ | Appointment | Hematology & | B/C, Pod [address] | | | 2019 | | Oncology | [place], | | | | | | [place] [address] | | +--------+ + + + + [...] [place] | | | | | | [address] | | | | | | [phone] | | | | | | | | +--------+ + + + + | 11/28/ | Appointment | Hematology & | B/C, Pod [address] | | | 2019 | | Oncology | [place], | | | | | | [place] [address] | | +--------+ + + + + [...] | | | | | | [place], [place] | | | | | | [address] | | | | | | [phone] | | | | | | | | +--------+ + + + + | 12/12/ | Appointment | Hematology & | B/C, Pod [address] | | | 2019 | | Oncology | [place], | | | | | | [place] [address] | | +--------+ + + + + as of this encounter Visit Diagnoses Not on filein this encounter"
--- OUTSIDE RECORDS SUMMARY | ~2018-11-06 | XMS | Encounter Summary ---
Demographics + + + | Address | [address] | | | [place] [address] | + + + | Home Phone [...] | | | | | [place] [address] | | + + + + + Care Team Providers + +------+ + | Care Social Sciences Research Scientist Name | Role | Phone | [...] | | 2019 | | [facility] at [place] | ,PhD [address] | (morphine ER 15 mg | | | | for Health & Healing | [address] [place], [place] | ER) | | | | [address] | [address] | | | | | Mailcode: [place] | [phone] | | | | | for Health and | | | | | | Healing, [address] | | | | | | [place], [place] | | | | | | [address] | | | | | | [phone] | | | +--------+--------+ + + + [...] | | | | | [place] [address] | | +--------+ + + + + | 11/14/ | Office | Hematology & | Taz Mcneal, | | | 2018 | Visit | Oncology | PA-C [address] | | | | | | [address] | | | | | | [facility] | | | | | | [address] | | | | | | [phone] | | | | | | | | +--------+ + + + + | 11/14/ | Appointment | Hematology & | B/C, Pod [address] | | | 2018 | | Oncology | [place] | | | | | | [place] [address] | | +--------+ + + + + | 11/28/ | Clinical | | | | | 2018 | Support | | | | | | Staff | | | | +--------+ + + + + | 11/28/ | Office | Hematology & | Taz Mcneal, | | | 2018 | Visit | Oncology | PA-C [address] [facility] | | | | | | [address] | | | | | | [place] | | | | | | [address] | | | | | | [phone] | | | | | | | | +--------+ + + + + | 11/28/ | Appointment | Hematology & | B/C, Pod [address] | | | 2019 | | Oncology | [place] | | | | | | [place] [address] | | +--------+ + + + + [...] [place] | | | | | | [address] | | | | | | [phone] | | | | | | | | +--------+ + + + + | 12/12/ | Appointment | Hematology & | B/C, Pod [address] | | | 2018 | | Oncology | [place], | | | | | | [place] [address] | | +--------+ + + + + as of this encounter Visit Diagnoses Not on filein this encounter"
--- OUTSIDE RECORDS SUMMARY | ~2018-11-06 | XMS | Encounter Summary ---
Demographics + + + | Address | [address] | | | [place] [address] | + + + | Home Phone [...] | | | | | [place] [address] | | + + + + + Care Team Providers + +------+ + | Care Director Sales And Trade Marketing Name | Role | Phone | + [...] | Oncology at [facility] | [address] [place], | | | | | [address] | [place] [address] | | | | | Mailcode: [place] | | | | | | for Health and | | | | | | [facility] 2 | | | | | | [place], [place] | | | | | | [address] | | | | | | [phone] | | | +--------+ + + + [...] | 1 | 09/13/19 | | | zaxtpg-[id number]-bivy | meals and 1 | capsule | [...] 0 Location: Duration: Narrative: Patient here for [place]. PAC right chest. 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 Refer to MAR and Onc Lines [...] [address] | | | | | | [place] [address] | | +--------+ + + + + | 11/14/ | Office | Hematology & | Taz Mcneal, | | | 2018 | Visit | Oncology | PA-C [address] | | | | | | [address] | | | | | | [facility] | | | | | | [address] | | | | | | [phone] | | | | | | | | +--------+ + + + + | 11/14/ | Appointment | Hematology & | B/C, Pod [address] | | | 2019 | | Oncology | [place] | | | | | | [place] [address] | | +--------+ + + + + [...] Rd | | | | | | [place], [place] | | | | | | [address] | | | | | | [phone] | | | | | | | | +--------+ + + + + | 11/28/ | Appointment | Hematology & | B/C, Pod [address] | | | 2018 | | Oncology | [place], | | | | | | [place] [address] | | +--------+ + + + + [...] | | | | | | [facility] [place] | | | | | | [address] | | | | | | [phone] | | | | | | | | +--------+ + + + + | 12/12/ | Appointment | Hematology & | B/C, Pod [address] | | | 2018 | | Oncology | [place], | | | | | | [place] [address] | | +--------+ + + + + [...]
--- OUTSIDE RECORDS SUMMARY | ~2018-11-06 | XMS | Encounter Summary ---
Demographics + + + | Address | [address] | | | [place] [address] | + + + | Home Phone [...] | | | | | [place] [address] | | + + + + + Care Team Providers + +------+ + | Care Cnc Wood Lathe Operator Name | Role | Phone | + +------+ + | Piotr Plummer MD | PCP | | + +------+ + Encounter Details +--------+ + + + + | Date | Type | Department | Care Team | Description | +--------+ + + + + | 08/15/ | Yarn Cleaner | Hematology/Medical | Toni Mccrary, | | | 2019 | | Oncology at [place] | ,PhD [address] | | | | | for Health & Healing | [place], [place] | | | | | [address] | [address] | | | | | Mailcode: [place] | [phone] | | | | | for Health and | | | | | | Healing, [address] | | | | | | [place], [place] | | | | | | [address] | | | | | | [phone] | | | +--------+ + + + [...] Rd | | | | | | [place] [address] | | +--------+ + + + + | 11/14/ | Office | Hematology & | Taz Mcneal, | | | 2019 | Visit | Oncology | FABIANA-Cindy [address] | | | | | | [address] | | | | | | [facility] [place] | | | | | | [address] | | | | | | [phone] | | | | | | | | +--------+ + + + + | 11/14/ | Appointment | Hematology & | B/C, Pod [address] | | | 2019 | | Oncology | [place], | | | | | | [place] [address] | | +--------+ + + + + [...] [place] | | | | | | [address] | | | | | | [phone] | | | | | | | | +--------+ + + + + | 11/28/ | Appointment | Hematology & | B/C, Pod [address] | | | 2019 | | Oncology | [place], | | | | | | [place] [address] | | +--------+ + + + + | 12/12/ | Clinical | | | | | 2019 | Support | | | | | | Staff | | | | +--------+ + + + + | 12/12/ | Office | Hematology & | Taz Mcneal, | | | 2018 | Visit | Oncology | PA-C [address] [facility] | | | | | | [address] | | | | | | [place], [place] | | | | | | [address] | | | | | | [phone] | | | | | | | | +--------+ + + + + | 12/12/ | Appointment | Hematology & | B/C, Pod [address] | | | 2019 | | Oncology | [place], | | | | | | [place] [address] | | +--------+ + + + + as of this encounter Visit Diagnoses Not on filein this encounter"
[~2018-11-06 11:59] MED LIST: DIPHENOXYLATE-1 EACH PO; METOPROLOL SUCC25 MG PO; PREMARIN30 GM PV; TRAZODONE HCL50 MG PO
[2018-11-06] MEDS ORDERED: PERCOCET 5-3251 EACH PO (12:19)
[2018-11-06] MEDS ORDERED: OMEPRAZOLE20 MG PO (12:19)
[2018-11-06] MEDS ORDERED: ELIQUIS5 MG PO (12:19)
[2018-11-06] MEDS ORDERED: MORPHINE SULFAT10 M1 PO (12:19)
[2018-11-06] MEDS ORDERED: CREON DR 12,001 EACH PO (12:20)
== END 2018-11-06 14:31 | disposition home or self-care (01) ==
LOC: ED 11:59
DX: E86.0 Dehydration (principal); C25.9 Malignant neoplasm of pancreas, unspecified; Z85.05 Personal history of malignant neoplasm of liver; Z79.899 Other long term (current) drug therapy
CPT/HCPCS: 36415; 80053; 83735; 85025; 96361; 96374; 99284-25; J7030

== ENCOUNTER 2018-11-11 18:33 | Emergency (ER) | payer MEDICARE ==
[~2018-11-11] VITALS: Ht 160 cm; Wt 49.4 kg
--- OUTSIDE RECORDS SUMMARY | ~2018-11-11 | XMS | Encounter Summary ---
Demographics + + + | Address | [address] | | | [place] [address] | + + + | Home Phone | | + + + | Preferred Language | Unknown | + + + | Marital Status | | + + + | Orthodox Affiliation | NRP | + + + | Race | White | + + + | Ethnic Group | Not or | + + + Author + + + | Author | [facility] | + + + | Organization | [facility] | + + + | Address | Unknown | + + + | Phone | Unavailable | + + + Support + + + + + | Name | Relationship | Address | Phone | + + + + + | ELSA GOODE | ECON | [address] | | | | | [place] [address] | | + + + + + Care Team Providers + +------+ + | Care Business Intelligence Engineer Name | Role | Phone | + +------+ + | Piotr Plummer MD | PCP | | + +------+ + Reason for Visit +--------+ + | Reason | Comments | +--------+ + | Pain | | +--------+ + Encounter Details +--------+ + + + + | Date | Type | Department | Care Team | Description | +--------+ + + + + | 08/13/ | Shading Painter | Digestive Health | Tigist Lawrence MD | | | 2019 | | [facility] [address] | [address] | | | | | [address] | [facility], | | | | | Mailcode: [facility] [address] | | | | | for Health and | [phone] | | | | | [facility] 2 | | | | | | [place], [place] | | | | | | [address] | | | | | | [phone] | | | +--------+ + + + + Social History + + + +--------+ + | Tobacco Use | Types | Packs/Day | Years | Date | | | | | Used | | + + + +--------+ + | Former Smoker | Cigarettes | 20 | 8 | Quit: 1982 | + + + +--------+ + + +---+---+---+ | Smokeless Tobacco: | | | | | Never Used | | | | + +---+---+---+ + + +---------+ + | Alcohol Use | Drinks/We | oz/Week | Comments | | | ek | | | + + +---------+ + | No | | | occasionally | + + +---------+ + + + + | Sex Assigned at | Date Recorded | | | | + + + | Not on file | | + + + as of this encounter Plan of Treatment +--------+ + + + + | Date | Type | Specialty | Care Team | Description | +--------+ + + + + | 11/09/ | Procedure | Hematology & | | | | 2019 | Pass | Oncology | | | +--------+ + + + + | 11/21/ | Appointment | Radiology | Toni Mccrary, | | | 2018 | | | PhD [address] | | | | | | e [place], [place] | | | | | | [address] | | | | | | [phone] | | | | | | | | +--------+ + + + + | 11/21/ | Office | Hematology & | Toni Mccrary, | | | 2019 | Visit | Oncology | PhD [address] | | | | | | [place], [place] | | | | | | [address] | | | | | | [phone] | | | | | | | | +--------+ + + + + | 11/28/ | Clinical | | | | | 2019 | Support | | | | | | Staff | | | | +--------+ + + + + | 11/28/ | Office | Hematology & | Taz Mcneal, | | | 2018 | Visit | Oncology | OLYA [address] | | | | | | [address] | | | | | | [place], [place] | | | | | | [address] | | | | | | [phone] | | | | | | | | +--------+ + + + + | 11/28/ | Appointment | Hematology & | Gen [address] | | | 2019 | | Oncology | [place], | | | | | | [place] [address] | | +--------+ + + + + | 11/29/ | Office | Physical Therapy | Genna Villegas, PT | | | 2018 | Visit | | [address] | | | | | | [place], | | | | | | [place] [address] | | | | | | [phone] | | | | | | | | +--------+ + + + + | 12/12/ | Clinical | | | | | 2019 | Support | | | | | | Staff | | | | +--------+ + + + + | 12/12/ | Office | Hematology & | Taz Mcneal, | | | 2018 | Visit | Oncology | O[place] [address] [facility] | | | | | | [address] | | | | | | [place] | | | | | | [address] | | | | | | [phone] | | | | | | | | +--------+ + + + + | 12/12/ | Appointment | Hematology & | [address] | | | 2019 | | Oncology | [place] | | | | | | [place] [address] | | +--------+ + + + + as of this encounter Visit Diagnoses Not on filein this encounter"
--- OUTSIDE RECORDS SUMMARY | ~2018-11-11 | XMS | Encounter Summary ---
Demographics + + + | Address | [address] | | | [place] [address] | + + + | Home Phone | | + + + | Preferred Language | Unknown | + + + | Marital Status | | + + + | Protestant Affiliation | NRP | + + + | Race | White | + + + | Ethnic Group | Not or | + + + Author + + + | Author | [facility] | + + + | Organization | [facility] | + + + | Address | Unknown | + + + | Phone | Unavailable | + + + Support + + + + + | Name | Relationship | Address | Phone | + + + + + | ELSA GOODE | ECON | [address] | | | | | [place] [address] | | + + + + + Care Team Providers + +------+ + | Care Candlemaker Name | Role | Phone | + [...] | | 2019 | | Oncology at [facility] | ,PhD [address] | (Bio Stent ) | | | | [address] | [place], [place] | | | | | Mailcode: [place] | [address] | | | | | for Health and | [phone] | | | | | [facility], [facility] 2 | | | | | | [place], [place] | | | | | | [address] | | | | | | [phone] | | | +--------+ + + + [...] | Hematology & | | | | 2018 | Pass | Oncology | | | +--------+ + + + + | 11/21/ | Appointment | Radiology | Toni Mccrary, | | | 2018 | | | PhD [address] | | | | | | [place] | | | | | | [address] | | | | | | [phone] | | | | | | | | +--------+ + + + + | 11/21/ | Office | Hematology & | Toni Mccrary, | | | 2018 | Visit | Oncology | PhD [address] | | | | | | [place] | | | | | | [address] | | | | | | [phone] | | | | | | | [...] [address] | | | | | | [place] | | | | | | [address] | | | | | | [phone] | | | | | | | | +--------+ + + + + | 11/28/ | Appointment | Hematology & | Gen [address] | | | 2019 | | Oncology | [place], | | | | | | [place] [address] | | +--------+ + + + + | 11/29/ | Office | Physical Therapy | Genna Villegas, PT | | | 2019 | Visit | | [address] | | | | | | [place], | | | | | | [place] [address] | | | | | | [phone] | | | | | | | | +--------+ + + + + | 12/12/ | Clinical | | | | | 2018 | Support | | | | | | Staff | | | | +--------+ + + + + | 12/12/ | Office | Hematology & | Taz Mcneal, | | | 2018 | Visit | Oncology | O[place]A [address] | | | | | | [address] | | | | | | [place] | | | | | | [address] | | | | | | [phone] | | | | | | | | +--------+ + + + + | 12/12/ | Appointment | Hematology & | [address] | | | 2019 | | Oncology | [place] | | | | | | [place] [address] | | +--------+ + + + + as of this encounter Visit Diagnoses Not on filein this encounter"
--- OUTSIDE RECORDS SUMMARY | ~2018-11-11 | XMS | Encounter Summary ---
Demographics + + + | Address | [address] | | | [place] [address] | + + + | Home Phone | | + + + | Preferred Language | Unknown | + + + | Marital Status | | + + + | Roman Catholic Affiliation | NRP | + + + | Race | White | + + + | Ethnic Group | Not or | + + + Author + + + | Author | [facility] | + + + | Organization | [facility] | + + + | Address | Unknown | + + + | Phone | Unavailable | + + + Support + + + + + | Name | Relationship | Address | Phone | + + + + + | ELSA GOODE | ECON | [address] | | | | | [place] [address] | | + + + + + Care Team Providers + +------+ + | Care Aircraft Detail Draftsperson Name | Role | Phone | + +------+ + | Piotr Plummer MD | PCP | | + +------+ + Encounter Details +--------+ + + + + | Date | Type | Department | Care Team | Description | +--------+ + + + + | 11/08/ | MyChart | Hematology/Medical | Toni Mccrary, | RE: Weakness and | | 2019 | Encounter | Oncology at [place] | ,PhD [address] | Numbness Following | | | | for Health & Healing | [place], [place] | Chemothearpy | | | | [address] | [address] | | | | | Mailcode: [place] | [phone] | | | | | for [facility] and | | | | | | [address] | | | | | | [place], [place] | | | | | | [address] | | | | | | [phone] | | | +--------+ + + + [...] | 11/21/ | Appointment | Radiology | oTni Mccrary, | | | 2019 | | | MDPhD [address] | | | | | | [place] | | | | | | [address] | | | | | | [phone] | | | | | | | | +--------+ + + + + | 11/21/ | Office | Hematology & | Toni Mccrary, | | | 2019 | Visit | Oncology | MDPhD [address] | | | | | | [place] | | | | | | [address] | | | | | | [phone] | | | | | | | [...] Rd | | | | | | [place], [place] | | | | | | [address] | | | | | | [phone] | | | | | | | | +--------+ + + + + | 11/28/ | Appointment | Hematology & | Gen [address] | | | 2018 | | Oncology | [place], | | | | | | [place] [address] | | +--------+ + + + + | 11/29/ | Office | Physical Therapy | Genna Villegas, PT | | | 2018 | Visit | | [address] | | | | | | [place], | | | | | | [place] [address] | | | | | | [phone] | | | | | | | [...] [place] | | | | | | [address] | | | | | | [phone] | | | | | | | | +--------+ + + + + | 12/12/ | Appointment | Hematology & | Onc, Gen [address] | | | 2018 | | Oncology | [place] | | | | | | [place] [address] | | +--------+ + + + + as of this encounter Visit Diagnoses Not on filein this encounter"
--- OUTSIDE RECORDS SUMMARY | ~2018-11-11 | XMS | Encounter Summary ---
Demographics + + + | Address | [address] | | | [place] [address] | + + + | Home Phone | | + + + | Preferred Language | Unknown | + + + | Marital Status | | + + + | Jehovah'S Witness Affiliation | NRP | + + + | Race | White | + + + | Ethnic Group | Not or | + + + Author + + + | Author | [facility] | + + + | Organization | [facility] | + + + | Address | Unknown | + + + | Phone | Unavailable | + + + Support + + + + + | Name | Relationship | Address | Phone | + + + + + | ELSA GOODE | ECON | [address] | | | | | [place] [address] | | + + + + + Care Team Providers + +------+ + | Care Military Analyst Name | Role | Phone | + +------+ + | Piotr Plummer MD | PCP | | + +------+ + Encounter Details +--------+ + + + + | Date | Type | Department | Care Team | Description | +--------+ + + + + | 08/20/ | Ethics Officer | Hematology/Medical | Toni Mccrary, | | | 2019 | | Oncology at [place] | ,PhD [address] | | | | | for Health & Healing | [place], [place] | | | | | [address] | [address] | | | | | Mailcode: [place] | [phone] | | | | | for Health and | | | | | | Healing, [address] | | | | | | [place], [place] | | | | | | [address] | | | | | | [phone] | | | +--------+ + + + [...] | | 2018 | | | PhD BARB [address] | | | | | | [place], [place] | | | | | | [address] | | | | | | [phone] | | | | | | | | +--------+ + + + + | 11/21/ | Office | Hematology & | Toni Mccrary, | | | 2018 | Visit | Oncology | PhD Mery [address] | | | | | | [place], [place] | | | | | | [address] | | | | | | [phone] | | | | | | | | +--------+ + + + + 11/28/ | Clinical | | | | | 2019 | Support | | | | | | Staff | | | | +--------+ + + + + | 11/28/ | Office | Hematology & | Taz Mcneal, | | | 2019 | Visit | Oncology | PA-Cindy [address] | | | | | | [address] | | | | | | [place], [place] | | | | | | [address] | | | | | | [phone] | | | | | | | | +--------+ + + + + | 11/28/ | Appointment | Hematology & | Onc, Gen [address] | | | 2019 | | Oncology | [place], | | | | | | [place] [address] | | +--------+ + + + + | 11/29/ | Office | Physical Therapy | Genna Villegas, PT | | | 2019 | Visit | | [address] | | | | | | [place], | | | | | | [place] [address] | | | | | | [phone] | | | | | | | | +--------+ + + + + | 12/12/ | Clinical | | | | | 2019 | Support | | | | | | Staff | | | | +--------+ + + + + | 12/12/ | Office | Hematology & | Taz Mcneal, | | | 2018 | Visit | Oncology | OLYA [address] [facility] | | | | | | [address] | | | | | | [place] | | | | | | [address] | | | | | | [phone] | | | | | | | | +--------+ + + + + | 12/12/ | Appointment | Hematology & | [address] | | | 2018 | | Oncology | [place] | | | | | | [place] [address] | | +--------+ + + + + as of this encounter Visit Diagnoses Not on filein this encounter"
--- OUTSIDE RECORDS SUMMARY | ~2018-11-11 | XMS | Encounter Summary ---
Demographics + + + | Address | [address] | | | [place] [address] | + + + | Home Phone | | + + + | Preferred Language | Unknown | + + + | Marital Status | | + + + | Confucianist Affiliation | NRP | + + + | Race | White | + + + | Ethnic Group | Not or | + + + Author + + + | Author | [facility] | + + + | Organization | [facility] | + + + | Address | Unknown | + + + | Phone | Unavailable | + + + Support + + + + + | Name | Relationship | Address | Phone | + + + + + | ELSA GOODE | ECON | [address] | | | | | [place] [address] | | + + + + + Care Team Providers + +------+ + | Care Mincemeat Maker Name | Role | Phone | + +------+ + | Piotr Plummer MD | PCP | | + +------+ + Encounter Details +--------+ + + + + | Date | Type | Department | Care Team | Description | +--------+ + + + + | 10/16/ | Procedure | Radiology/Imaging | | | | 2019 | Pass | Lab at [facility] [address] | | | | | | [address] | | | | | | Mailcode: [facility] | | | | | | [facility] | | | | | | and Healing, 3rd | | | | | | Floor [place], [place] | | | | | | [address] | | | | | | [phone] | | | +--------+ + + + [...] Radiology | Toni Mccrary, | | | 2019 | | | MDPhD [address] | | | | | | [address] [place], [place] | | | | | | [address] | | | | | | [phone] | | | | | | | | +--------+ + + + + | 11/21/ | Office | Hematology & | Toni Mccrary, | | | 2018 | Visit | Oncology | PhD BARB [address] | | | | | | [place], [place] | | | | | | [address] | | | | | | [phone] | | | | | | | | +--------+ + + + + | 11/28/ | Clinical | | | | | 2019 | Support | | | | | | Staff | | | | +--------+ + + + + | 11/28/ | Office | Hematology & | Taz Mcneal, | | | 2018 | Visit | Oncology | [place] [address] | | | | | | [address] | | | | | | [place], [place] | | | | | | [address] | | | | | | [phone] | | | | | | | | +--------+ + + + + | 11/28/ | Appointment | Hematology & | Onc, Gen [address] | | | 2019 | | Oncology | [place], | | | | | | [place] [address] | | +--------+ + + + + | 11/29/ | Office | Physical Therapy | Genna Villegas PT | | | 2018 | Visit | | [address] | | | | | | [place], | | | | | | [place] [address] | | | | | | [phone] | | | | | | | [...] [place] | | | | | | [address] | | | | | | [phone] | | | | | | | | +--------+ + + + + | 12/12/ | Appointment | Hematology & | Onc, [address] | | | 2019 | | Oncology | [place], | | | | | | [place] [address] | | +--------+ + + + + as of this encounter Visit Diagnoses Not on filein this encounter"
--- OUTSIDE RECORDS SUMMARY | ~2018-11-11 | XMS | Encounter Summary ---
Demographics + + + | Address | [address] | | | [place] [address] | + + + | Home Phone | | + + + | Preferred Language | Unknown | + + + | Marital Status | | + + + | Anabaptism Affiliation | NRP | + + + | Race | White | + + + | Ethnic Group | Not or | + + + Author + + + | Author | [facility] | + + + | Organization | [facility] | + + + | Address | Unknown | + + + | Phone | Unavailable | + + + Support + + + + + | Name | Relationship | Address | Phone | + + + + + | ELSA GOODE | ECON | [address] | | | | | [place] [address] | | + + + + + Care Team Providers + +------+ + | Care Advanced Manager Name | Role | Phone | + +------+ + | Piotr Plummer MD | PCP | | + +------+ + Reason for Visit + + + | Reason | Comments | + + + | Pancreatic cancer | | + + + Encounter Details +--------+---------+ + + + | Date | Type | Department | Care Team | Description | +--------+---------+ + + + | 10/31/ | Office | Hematology/Medical | Taz Mcneal, | Pancreatic | | 2019 | Visit | Oncology at Center | [facility] [address] | adenocarcinoma (HCC) | | | | for [facility]aling | [address] | (Primary Dx); Liver | | | | [address] | [place], [place] | metastases (HCC); | | | | Mailcode: Center | [address] | Biliary obstruction | | | | for Health and | [phone] | due to cancer (HCC); | | | | Healing, [address] | | Pancreatic | | | | [place], [place] | | insufficiency; | | | | [address] | | Encounter for | | | | [phone] | | antineoplastic | | | | | | chemotherapy; Cancer | | | | | | related pain; Right | | | | | | upper quadrant | | | | | | abdominal pain; | | | | | | Gastroesophageal | | | | | | reflux disease, | | | | | | esophagitis presence | | | | | | not specified; Drug | | | | | | induced | | | | | | constipation | +--------+---------+ + + + Social History [...] + + + | Blood Pressure | 113/65 | 10/31/2018 12:10 PM PDT | + + + + | Pulse | 80 | 10/31/2018 12:10 PM PDT | + + + + | Temperature | 36.7 C (98.1 F) | 10/31/2018 12:10 PM PDT | + + + + | Respiratory Rate | 16 | 10/31/2018 12:10 PM PDT | + + + + | Oxygen Saturation | 97% | 10/31/2018 12:10 PM PDT | + + + + | Inhaled Oxygen | - | - | | Concentration | | | + + + + | Weight | 50.5 kg (111 lb 6.4 | 10/31/2018 12:10 PM PDT | | | oz) | | + + + + | Height | - | - | + + + + | Body Mass Index | 19.73 | 10/31/2018 12:10 PM PDT | + + + + in this encounter Instructions Patient Instructions - Taz Mcneal PA-C - 10/31/2018 11:50 AM PDTElaine, It was good to see you today. Please let us know if you need anything, or have any questions or concerns. Take care. Ronnie Mcneal PA-C Medical Oncology IMPORTANT INFORMATION FOR PATIENTS RECEIVING CHEMOTHERAPY, IMMUNOTHERAPY AND OTHER MEDICAL THERAPIES FOR CANCER Chemotherapy may weaken your defenses and make you more susceptible to unusual medical prob lems. Please contact us immediately if you experience any of the problems described below or have questions: 1. Any temperature over 100.4 degrees orally. 2. Vomiting more than 3 times per day or large amounts. 3. Diarrhea, over 3-4 stools per day. 4. Abnormal bruising, nose bleeds, blood in stool or urine. 5. Mouth sores that prevent eating. 6. Exposure to chicken pox if patient never had the disease. 7. Shaking chills. 8. Severe headache or changes in your ability to think. 9. Redness, swelling, pain and/or drainage at venous access device such as a port or PICC. 10. Any symptom of concern we would rather know than not! During clinic hours please call the clinic at [phone]. Evenings, weekends and holidays please call [phone] and ask to have the oncologist teacher emotionally impaired paged. in this encounter Progress Notes Taz Mcneal PA-C - 10/31/2018 11:50 AM PDTFormatting of this note may be different fr om the original. Elaine Goode is a 73 y.o. Female newly diagnosed metastatic pancreatic adenocarcinoma. Oncology history: Several month history of abdominal discomfort, bloating, early satiety. Denies weight loss . Denies stearrhea. June 2018: CT scan demonstrated pancreatic head mass with liver metastases. 07/20/18: Endoscopic ultrasound with FNA positive for adenocarcinoma consistent with pancreat ic primary. 08/10/18: port placement and diagnostic laparoscopy with liver biopsy. Post op noted signifi cant RUQ pain due to underutilization of pain medications. Unable to enroll for CanStem tria l due to inadequately controlled pain. CT without acute findings. 08/13/18 CT: Since 07/12/2018, interval increase in size of primary pancreatic head lesion, with increased size of hepatic metastases. A pulmonary nodule is incidentally visualized, in determinate but suspicious for metastatic disease. Sequela of recent hepatic wedge resections. A subcapsular collection in contiguity with the segment 8 resection site may represent a postoperative biloma or hematoma. 2/6/19: Cycle 1 Gemcitabine + Abraxane 08/28/18: Port revised 10/03/18: Cycle 2 Gemcitabine + Abraxane 10/17/18: CT with responsive disease but showed new biliary duct obstruction, with normal TBi li 10/23/18: ERCP w/ placement of metal biliary stent 10/31/18: C3 Tyrrell/Abraxane Interim history: Since her last visit, Elaine had a CT which showed stable to responsive disease but with ev idence of biliary dilation (w/o hyperbilirubinemia), prompting urgent ERCP w/ biliary stenti ng (metal) on 10/23/18. Immediately after her stent placement, Elaine reports several episodes of nausea and vomiti ng, though this has not continued. Her energy level and difficulties with balance have impro mekhi significantly, though she still feels that she is not back to her baseline. She is eatin g and drinking but in limited amounts. In addition to poor appetite, she has ongoing constip ation w/o a BM in 3 days. She has continued to manage this with coconut oil, is hesitant to use either Senna (d/t diarrhea) and Miralax because of increased bloating. However she says that at the time she used miralax, she was not yet taking Creon, which significantly helped her bloating symptoms. She reports new vague back pain, RUQ pain with deep inspirations, and intermittent sharp pains in her abdomen that seem to fluctuate. She is taking morphine ER B ID, and occasionally taking oxycodone 5mg PRN QHS. She continues to have difficulty with dalia rt term memory but her balance has significantly improved. Review of systems: Review of systems were obtained and reviewed with the patient today. Ple ase reference the scanned questionnaire, see HPI for pertinent positives. PFSH: I reviewed and updated. Good social support system for continued chemotherapy. Physical Exam: BP 113/65 (BP Location: Left upper arm, Patient Position: Sitting) | Pulse 80 | Temp 36.7 C (98.1 F) (Oral) | Resp 16 | Wt 50.5 kg (111 lb 6.4 oz) | SpO2 97% | BMI 19.73 kg/ m | BSA 1.5 m General: Well developed, well nourished, chronically ill appearing elderly adult female mali rodriguez awake and alert in exam room. HEENT: Alopecia, wearing hat. Anicteric sclerae. Oropharynx clear, mucous membranes moist. No sinus congestion, mucositis, or thrush. Chest: CTAB; No crackles, cough, wheezing, or stridor. Relaxed respiratory effort. CV: RRR, no murmurs or gallops. Abd: Soft, nontender, nondistended. Tenderness to RUQ, non-surgical bowel. Normoactive rusty l sounds. Skin: Dry and warm. No rashes or ecchymoses. Ext: Warm, well perfused. No LE edema. Neuro: A&O. No facial asymmetries. No gait abnormalities, no tremor. Psych: Pleasant, conversant, affect appropriate. Lines: Port NT, no erythema. ECO Lab Results Component Value Date CA199 2,500.9 10/31/2018 CA199 1,117.2 10/17/2018 CA199 2,021.0 10/03/2018 Lab Results Component Value Date WBC 11.81 10/31/2018 HB 11.3 10/31/2018 HCT 35.9 10/31/2018 PLT 392 10/31/2018 MCV 85.9 10/31/2018 RDW 51.0 10/31/2018 Lab Results Component Value Date NA 140 10/31/2018 K 4.1 10/31/2018 CL 101 10/31/2018 BICARB 28 10/31/2018 BUN 11 10/31/2018 CR 0.58 10/31/2018 GLU 161 10/31/2018 CA 8.8 10/31/2018 AST 30 10/31/2018 ALT 65 10/31/2018 AP 446 10/31/2018 TBILI 0.4 10/31/2018 TP 6.8 10/31/2018 ALB 2.8 10/31/2018 ANIONGAP 11 10/31/2018 ANIONALBCOR 14 10/31/2018 Imaging: CT CAP (10/17/18): IMPRESSION: 1. Compared to 08/13/2018 primary pancreatic head mass is grossly stable in size, however it now causes new moderate to severe biliary dilation and possibly a mild degree of gastric ou tlet obstruction. 2. Decrease in size of multifocal hepatic metastases. 3. Enlarging mediastinal adenopathy is indeterminate and may represent metastases or be r eactive. Recommend close attention on follow-up. 4. Multifocal indeterminate pulmonary nodules are unchanged. PLAN: 1. Metastatic pancreatic adenocarcinoma. --ongoing first line Tyrrell/Abraxane. Tolerating well with significant decline in CA19-9. Note s increasing fatigue. Recent episode of diarrhea requiring ED visit. --C3D1 Tyrrell/Abraxane scheduled 10/17/18, initially deferred for uncontrolled diarrhea --Restaging CT (10/17/18) with responsive disease but showed new biliary duct obstruction, wi th normal TBili, prompting ERCP w/ metal stent placement (10/23/18) --Patient has recovered well from biliary stenting, shows elevated WBC but afebrile --Proceed with C3 Tyrrell/Abraxane today (10/31/2018) --Per Dr. Mccrary: Restaging CT (10/23/18) showed responsive disease and will therefore continu e regimen and switch from D1, 8, 15 schedule to D1,15 schedule for tolerability. --I discussed the goals, objectives, risks, benefits, and toxicities of therapy and the pat ient wishes to proceed. --Will need close and frequent monitoring physical examinations and laboratory monitoring f or toxicities of ongoing cytotoxic chemotherapy. 2. MMTERT/SMMART trial --Consented 10/17/18. Was previously consented to OPTR --other options at progression include Morpheus trial (combination immunotherapeutics). 3. Nutrition: Rosemarie Galan following - continue CREON per nutrition recs 4. RIJ thrombus - continue apixiban - Recommend over the counter saline spray for nose bleeds 5. Cancer pain -continue current pain regimen -continue close follow-up with palliative care Taz Mcneal PA-C HEMATOLOGY/MEDICAL ONCOLOGY AT [facility] [address] [place] [address] Mailcode: [place] [address] in this encounter Plan of Treatment +--------+ [...] | | | 2018 | | | MDPhD [address] | | | | | | [place], [place] | | | | | | [address] | | | | | | [phone] | | | | | | | | +--------+ + + + + | 11/21/ | Office | Hematology & | Toni Mccrary, | | | 2018 | Visit | Oncology | MDPhD [address] | | | | | | [place] [facility] [place] | | | | | | [address] | | | | | | [phone] | | | | | | | [...] [address] | | | | | | [place], [place] | | | | | | [address] | | | | | | [phone] | | | | | | | | +--------+ + + + + | 11/28/ | Appointment | Hematology & | [address] | | | 2019 | | Oncology | [place], | | | | | | [place] [address] | | +--------+ + + + + | 11/29/ | Office | Physical Therapy | Genna Villegas PT | | | 2019 | Visit | | [address] | | | | | | [place], | | | | | | [place] [address] | | | | | | [phone] | | | | | | | | +--------+ + + + + | 12/12/ | Clinical | | | | | 2018 | Support | | | | | | Staff | | | | +--------+ + + + + | 12/12/ | Office | Hematology & | Taz Mcneal, | | | 2018 | Visit | Oncology | [facility] [address] | | | | | | [address] | | | | | | [place] | | | | | | [address] | | | | | | [phone] | | | | | | | | +--------+ + + + + | 12/12/ | Appointment | Hematology & | [address] | | | 2019 | | Oncology | [place] | | | | | | [place] [address] | | +--------+ + + + + as of this encounter Procedures + +--------+ + + + | Procedure Name | Priori | Date/Time | Associated Diagnosis | Comments | | | ty | | | | + +--------+ + + + | ADMINISTER | Routin | 10/31/2018 | | | | CHEMOTHERAPY PER | e | 1:16 PM | | | | TREATMENT PARAMETERS | | PDT | | | + +--------+ + + + in this encounter Visit Diagnoses + + | Diagnosis | + + | Pancreatic adenocarcinoma (HCC) - Primary | + + | Malignant neoplasm of pancreas, part unspecified | + + | Liver metastases (HCC) | + + | Secondary malignant neoplasm of liver | + + | 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
--- OUTSIDE RECORDS SUMMARY | ~2018-11-11 | XMS | Encounter Summary ---
Demographics + + + | Address | [address] | | | [place] [address] | + + + | Home Phone | | + + + | Preferred Language | Unknown | + + + | Marital Status | | + + + | Worship Affiliation | NRP | + + + | Race | White | + + + | Ethnic Group | Not or | + + + Author + + + | Author | [facility] | + + + | Organization | [facility] | + + + | Address | Unknown | + + + | Phone | Unavailable | + + + Support + + + + + | Name | Relationship | Address | Phone | + + + + + | ELSA GOODE | ECON | [address] | | | | | [place] [address] | | + + + + + Care Team Providers + +------+ + | Care Turbine Mechanic Name | Role | Phone | + +------+ + | Piotr Plummer MD | PCP | | + +------+ + Encounter Details +--------+ + + + + | Date | Type | Department | Care Team | Description | +--------+ + + + + | 08/15/ | Solar Energy Installation Manager | Hematology/Medical | Toni Mccrary, | | | 2019 | | Oncology at [facility] | ,PhD [address] | | | | | for Health & Healing | [place], [place] | | | | | [address] | [address] | | | | | Mailcode: [facility] | [phone] | | | | | for Health and | | | | | | Healing, [address] | | | | | | [place], [place] | | | | | | [address] | | | | | | [phone] | | | +--------+ + + + [...] | | | | | | [place], [place] | | | | | | [address] | | | | | | [phone] | | | | | | | | +--------+ + + + + | 11/21/ | Office | Hematology & | Toni Mccrary, | | | 2018 | Visit | Oncology | PhD [address] | | | | | | [place], [place] | | | | | | [address] | | | | | | [phone] | | | | | | | [...] | | | | | | [place], [place] | | | | | | [address] | | | | | | [phone] | | | | | | | | +--------+ + + + + | 11/28/ | Appointment | Hematology & | Onc, Gen [address] | | | 2019 | | Oncology | [place], | | | | | | [place] [address] | | +--------+ + + + + | 11/29/ | Office | Physical Therapy | Genna Villegas, PT | | | 2019 | Visit | | [address] | | | | | | [place], | | | | | | [place] [address] | | | | | | [phone] | | | | | | | | +--------+ + + + + | 12/12/ | Clinical | | | | | 2019 | Support | | | | | | Staff | | | | +--------+ + + + + | 12/12/ | Office | Hematology & | Taz Mcneal, | | | 2018 | Visit | Oncology | [facility] [address] [facility] | | | | | | [address] | | | | | | [place] | | | | | | [address] | | | | | | [phone] | | | | | | | | +--------+ + + + + | 12/12/ | Appointment | Hematology & | [facility] [address] | | | 2018 | | Oncology | [place] | | | | | | [place] [address] | | +--------+ + + + + as of this encounter Visit Diagnoses Not on filein this encounter"
--- OUTSIDE RECORDS SUMMARY | ~2018-11-11 | XMS | Encounter Summary ---
Demographics + + + | Address | [address] | | | [place] [address] | + + + | Home Phone | | + + + | Preferred Language | Unknown | + + + | Marital Status | | + + + | Gnosticist Affiliation | NRP | + + + | Race | White | + + + | Ethnic Group | Not or | + + + Author + + + | Author | [facility] | + + + | Organization | [facility] | + + + | Address | Unknown | + + + | Phone | Unavailable | + + + Support + + + + + | Name | Relationship | Address | Phone | + + + + + | ELSA GOODE | ECON | [address] | | | | | [place] [address] | | + + + + + Care Team Providers + +------+ + | Care Senior Office Support Assistant Sosa Name | Role | Phone | + +------+ + | Piotr Plummer MD | PCP | | + +------+ + Reason for Visit + + + | Reason | Comments | + + + | Medication Questions | | + + + Encounter Details +--------+ + + + + | Date | Type | Department | Care Team | Description | +--------+ + + + + | 10/09/ | Telephone | Hematology/Medical | Patrick Nazario MD | Medication Questions | | 2019 | | Oncology at Center | [address] [facility] | | | | | for Health & Healing | [address] | | | | | [address] | [place], [place] | | | | | Mailcode: [place] | [address] | | | | | for Health and | [phone] | | | | | [facility] [address] | | | | | | [place], [place] | | | | | | [address] | | | | | | [phone] | | | +--------+ + + + [...] | | | | | [place] | | | | | | [address] | | | | | | [phone] | | | | | | | | +--------+ + + + + | 11/21/ | Office | Hematology & | Toni Mccrary, | | | 2018 | Visit | Oncology | [address] | | | | | | [place] | | | | | | [address] | | | | | | [phone] | | | | | | | [address] | | | | | | [place], [place] | | | | | | [address] | | | | | | [phone] | | | | | | | | +--------+ + + + + | 11/28/ | Appointment | Hematology & | [address] | | | 2019 | | Oncology | [place], | | | | | | [place] [address] | | +--------+ + + + + | 11/29/ | Office | Physical Therapy | Genna Villegas PT | | | 2019 | Visit | | [address] | | | | | | [place], | | | | | | [place] [address] | | | | | | [phone] | | | | | | | | +--------+ + + + + | 12/12/ | Clinical | | | | | 2018 | Support | | | | | | Staff | | | | +--------+ + + + + | 12/12/ | Office | Hematology & | Taz Mcneal, | | | 2018 | Visit | Oncology | [facility] [address] | | | | | | [address] | | | | | | [place] | | | | | | [address] | | | | | | [phone] | | | | | | | | +--------+ + + + + | 12/12/ | Appointment | Hematology & | [address] | | | 2019 | | Oncology | [place] | | | | | | [place] [address] | | +--------+ + + + + as of this encounter Visit Diagnoses + + | Diagnosis | + + | Pancreatic adenocarcinoma (HCC) | + + | Malignant neoplasm of pancreas, part unspecified | + + | Liver metastases (HCC) | + + | Secondary malignant neoplasm of liver | + + | Embolism due to any device, implant or graft, initial encounter | + +"
--- OUTSIDE RECORDS SUMMARY | ~2018-11-11 | XMS | Encounter Summary ---
Demographics + + + | Address | [address] | | | [place] [address] | + + + | Home Phone | | + + + | Preferred Language | Unknown | + + + | Marital Status | | + + + | Confucianism Affiliation | NRP | + + + | Race | White | + + + | Ethnic Group | Not or | + + + Author + + + | Author | [facility] | + + + | Organization | [facility] | + + + | Address | Unknown | + + + | Phone | Unavailable | + + + Support + + + + + | Name | Relationship | Address | Phone | + + + + + | ELSA GOODE | ECON | [address] | | | | | [place] [address] | | + + + + + Care Team Providers + +------+ + | Care Army Ranger Name | Role | Phone | + +------+ + | Piotr Plummer MD | PCP | | + +------+ + Reason for Visit +--------+ + | Reason | Comments | +--------+ + | Other | | +--------+ + Encounter Details +--------+ + + + + | Date | Type | Department | Care Team | Description | +--------+ + + + + | 09/26/ | Telephone | Hematology/Medical | Toni Mccrary, | Other | | 2019 | | [facility]cology at [facility] | ,PhD [address] | | | | | for Health & Healing | [place], [place] | | | | | [address] | [address] | | | | | Mailcode: [facility] | [phone] | | | | | for Health and | | | | | | Healing, [address] | | | | | | [place], [place] | | | | | | [address] | | | | | | [phone] | | | +--------+ + + + [...] | | | 2019 | | | PhD [address] | | | | | | [place], [place] | | | | | | [address] | | | | | | [phone] | | | | | | | | +--------+ + + + + | 11/21/ | Office | Hematology & | Toni Mccrary, | | | 2019 | Visit | Oncology | [address] | | | | | | [place], [place] | | | | | | [address] | | | | | | [phone] | | | | | | | [...] Rd | | | | | | [place], [place] | | | | | | [address] | | | | | | [phone] | | | | | | | | +--------+ + + + + | 11/28/ | Appointment | Hematology & | [address] | | | 2019 | | Oncology | [place], | | | | | | [place] [address] | | +--------+ + + + + | 11/29/ | Office | Physical Therapy | Genna Villegas, PT | | | 2018 | Visit | | [address] | | | | | | [place], | | | | | | [place] [address] | | | | | | [phone] | | | | | | | | +--------+ + + + + | 12/12/ | Clinical | | | | | 2018 | Support | | | | | | Staff | | | | +--------+ + + + + | 12/12/ | Office | Hematology & | Taz Mcneal, | | | 2018 | Visit | Oncology | [facility] [address] | | | | | | [address] | | | | | | [place] | | | | | | [address] | | | | | | [phone] | | | | | | | | +--------+ + + + + | 12/12/ | Appointment | Hematology & | [address] | | | 2019 | | Oncology | [place] | | | | | | [place] [address] | | +--------+ + + + + as of this encounter Visit Diagnoses Not on filein this encounter"
--- OUTSIDE RECORDS SUMMARY | ~2018-11-11 | XMS | Encounter Summary ---
Demographics + + + | Address | [address] | | | [place] [address] | + + + | Home Phone [...] + + + | Author | [facility] | + + + | Organization | [facility] | + + + | Address | Unknown | + + + | Phone | Unavailable | + + + Support + + + + + | Name | Relationship | Address | Phone | + + + + + | ELSA GOODE | ECON | [address] | | | | | [place] [address] | | + + + + + Care Team Providers + +------+ + | Care Stripping Cutter And Winder Name | Role | Phone | + [...] + + + + | 09/26/ | Hospital | Hematology/Medical | [address], [address] | | | 2019 | Encounter | Oncology at [facility] | [address] [place], | | | | | [address] | [place] [address] | | | | | Mailcode: [facility] | | | | | | [facility] | | | | | | [facility], [address] | | | | | | [place], [place] | | | | | | [address] | | | | | | [phone] | | | +--------+ + + + [...] + + + | Blood Pressure | 137/72 | 09/26/2018 2:40 PM PDT | + + + + | Pulse | 88 | 09/26/2018 2:40 PM PDT | + + + + | Temperature | 37.3 C (99.2 F) | 09/26/2018 2:40 PM PDT | + + + + | Respiratory Rate | 16 | 09/26/2018 2:40 PM PDT | + + + + | Oxygen Saturation | 98% | 09/26/2018 2:40 PM PDT | + + + + | Inhaled Oxygen | - | - | | Concentration | | | + + + + | Weight | 55 kg (121 lb 4.8 | 09/26/2018 2:40 PM PDT | | | oz) | | + + + + | Height | - | - | + + + + | Body Mass Index | 21.49 | 09/26/2018 2:40 PM PDT | + + + + [...] | 1 | 09/13/19 | | | roolko-tzlrityx-ideh | meals and 1 | capsule | [...] + as of this encounter Progress Notes Deyanira Singletary, JAY - 09/26/2018 2:15 PM PDTPt completed infusion without incident. PAC fl ushed and deaccessed per protocol. Pt discharged alert, ambulatory and in no apparent distre ss with .Tracie Amador RN - 09/26/2018 2:15 PM PDTChemotherapy Nurse Note Name: Elaine Goode Date: 09/26/2018 Physician: Hermann Allergies: Elaine has No Known Allergies. Diagnosis: Pancreatic adenocarcinoma Significant Other: , Elsa, at chairside Nursing Assessment: Fever: no; Diarrhea: no Constipation: Yes, Patient encouraged to increase fluids, ambulation and PRN sennakot, bala lax, prunes, etc to find her perfect combo SOB / Cough: no; Rash: no Edema: no; Mucositis: no; Urinary: no; Neuropathy: no; S/S Bleeding: yes - occasionally has a bloody nose but team aware; Severity (1=Not at all, 2=A little, 3=Quite a bit, 4=Very much) Nausea and/or Vomitin Fatigue: 4 Pain: 4 Location: abdomen Duration: chronic Narrative: Patient here for [place]/Abraxane. PAC right chest accessed with negative blood return. Tpa instilled. R AC accessed with 23g butterfly needle. CBC and CMP were drawn via PIV, resulted via POC and reviewed prior to rel easing labs. Positive blood return on IV line prior and after infusion. Medications infused with 250ml NS sidearm bag. Care handed over to another custom bow maker prior to infusion completing. Refer to MAR and Onc Lines and [...] | | | 2018 | | | ,PhD [address] | | | | | | [place] [facility] [place] | | | | | | [address] | | | | | | [phone] | | | | | | | | +--------+ + + + + | 11/21/ | Office | Hematology & | Toni Mccrary, | | | 2018 | Visit | Oncology | PhD BAR[address] | | | | | | [place] | | | | | | [address] | | | | | | [phone] | | | | | | | | +--------+ + + + + | 11/28/ | Clinical | | | | | 2018 | Support | | | | | | Staff | | | | +--------+ + + + + | 11/28/ | Office | Hematology & | Taz Mcneal, | | | 2018 | Visit | Oncology | OLYA [address] | | | | | | [address] | | | | | | [place], [place] | | | | | | [address] | | | | | | [phone] | | | | | | | | +--------+ + + + + | 11/28/ | Appointment | Hematology & | Gen Elizabeth [address] | | | 2018 | | Oncology | [address] [place], | | | | | | [place] [address] | | +--------+ + + + + | 11/29/ | Office | Physical Therapy | Genna Villegas PT | | | 2019 | Visit | | [address] | | | | | | [place], | | | | | | [place] [address] | | | | | | [phone] | | | | | | | [...] [place] | | | | | | [address] | | | | | | [phone] | | | | | | | | +--------+ + + + + | 12/12/ | Appointment | Hematology & | Onc, [address] | | | 2018 | | Oncology | [address] [place], | | | | | | [place] [address] | | +--------+ + + + + as of this encounter Procedures + +--------+ + + + | Procedure Name | Priori | Date/Time | Associated Diagnosis | Comments | | | ty | | | | + +--------+ + + + | CBC WITH AUTO DIFF - | Routin | 09/26/2018 | Pancreatic | | | OLP | e | 4:18 PM | adenocarcinoma (HCC) | | | | | PDT | | | + +--------+ + + + | CBC+DIFF,POC | Routin | 09/26/2018 | Pancreatic | Results for this | | | e | 4:18 PM | adenocarcinoma (HCC) | procedure are in the | | | | PDT | | results section. | + +--------+ + + + | COMPLETE METABOLIC | Routin | 09/26/2018 | Pancreatic | | | PANEL - OLP | e | 4:15 PM | adenocarcinoma (HCC) | | | | | PDT | | | + +--------+ + + + | CMP, POC (BMP+LFT) | Routin | 09/26/2018 | Pancreatic | Results for this | | | e | 4:15 PM | adenocarcinoma (HCC) | procedure are in the | | | | PDT | | results section. | + +--------+ + + + in this encounter Results CBC+DIFF,POC (09/26/2018 4:18 PM) + + + + + | Component | Value | Ref Range | Performed At | + + + + + | WBC POC | 7.6 | 3.5 - 10.8 10*3/uL | [facility] | | | | | POINT OF CARE | | | | | TESTS | + + + + + | RBC POC | 3.69 (L) | 4.00 - 5.20 10*6/uL | [facility] | | | | | POINT OF CARE | | | | | TESTS | + + + + + | HGB POC | 10.1 (L) | 12.0 - 16.0 g/dL | [facility] | | | | | POINT OF CARE | | | | | TESTS | + + + + + | HCT POC | 31.9 (L) | 36.0 - 46.0 % | [facility] | | | | | POINT OF CARE | | | | | TESTS | + + + + + | MCV POC | 86.4 | 80.0 - 100.0 fL | [facility] | | | | | POINT OF CARE | | | | | TESTS | + + + + + | MCH POC | 27.4 | 27.0 - 34.0 pg | [facility] | | | | | POINT OF CARE | | | | | TESTS | + + + + + | MCHC POC | 31.7 (L) | 32.0 - 36.0 g/dL | [facility] | | | | | POINT OF CARE | | | | | TESTS | + + + + + | RDW SD, POC | 41.5 | 35.1 - 46.3 fL | [facility] | | | | | POINT OF CARE | | | | | TESTS | + + + + + | PLT POC | 403 (H) | 150 - 400 10*3/uL | [facility] | | | | | POINT OF CARE | | | | | TESTS | + + + + + | MPV POC | 8.5 (L) | 9.7 - 12.3 fL | [facility] | | | | | POINT OF CARE | | | | | TESTS | + + + + + | NEUTROPHIL% POC | 77.5 (H) | 50.0 - 70.0 % | [facility] | | | | | POINT OF CARE | | | | | TESTS | + + + + + | LYMPH% POC | 10.3 (L) | 18 - 42 % | [facility] | | | | | POINT OF CARE | | | | | TESTS | + + + + + | MONO %, POC | 7.5 | 3.5 - 9.0 % | [facility] | | | | | POINT OF CARE | | | | | TESTS | + + + + + | EOS %, POC | 4.0 (H) | 1.0 - 3.0 % | [facility] | | | | | POINT OF CARE | | | | | TESTS | + + + + + | BASO %, POC | 0.7 | 0.0 - 2.0 % | [facility] | | | | | POINT OF CARE | | | | | TESTS | + + + + + | NEUTROPHIL# POC | 5.9 | 1.8 - 7.7 10*3/uL | [facility] | | | | | POINT OF CARE | | | | | TESTS | + + + + + | LYMPH# POC | 0.8 (L) | 1.0 - 4.8 10*3/uL | [facility] | | | | | POINT OF CARE | | | | | TESTS | + + + + + | MONO #, POC | 0.6 | 0.1 - 0.9 10*3/uL | [facility] | | | | | POINT OF CARE | | | | | TESTS | + + + + + | EOS #, POC | 0.3 | 0.0 - 0.5 10*3/uL | [facility] [...] | + + + + + | CBC COMMENT, POC | imm gran | | [facility], | | | [...] | [facility], POINT | [address] [facility] | [place] [address] | | | OF CARE TESTS | | | | + + + + + CMP, POC (BMP+LFT) (09/26/2018 4:15 PM) + +---------+ + + | Component | Value | Ref Range | Performed At | + +---------+ + + | SODIUM, POC | 142 | 134 - 143 mmol/L | [facility], | | | | | POINT OF CARE | | | | | TESTS | + +---------+ + + | POTASSIUM, POC | 3.4 | 3.4 - 5.0 mmol/L | [facility] [...] +---------+ + + | CHLORIDE, POC | 102 | 97 - 108 mmol/L | [facility] | | | | | POINT OF CARE | | | | | TESTS | + +---------+ + + | GLUCOSE, POC | 115 (H) | 60 - 99 mg/dL | [facility] | | | | | POINT OF CARE | | | | | TESTS | + +---------+ + + | CALCIUM TOTAL, POC | 9.5 | 8.6 - 10.2 mg/dL | [facility], | | | | | POINT OF CARE | | | | | TESTS | + +---------+ + + | BUN, POC | 8 | 6 - 20 mg/dL | [facility] [...] + | ALK PHOS, CMP POC | 500 (H) | 41 - 109 U/L | [facility], | | | | | POINT OF CARE | | | | | TESTS | + +---------+ + + | ALT, CMP POC | 228 (H) | 0 - 60 U/L | [facility], | | | | | POINT OF CARE | | | | | TESTS | + +---------+ + + | AST, CMP POC | 146 (H) | 0 - 41 U/L | [facility], | | | | | POINT OF CARE | | | | | TESTS | + +---------+ + + | BILIRUBIN TOTAL, CMP | 0.6 | 0.3 - 1.2 mg/dL | [facility], | | POC | | | POINT OF CARE | | | | | TESTS | + +---------+ + + | ALBUMIN, CMP POC | 3.7 | 3.5 - 4.7 g/dL | [facility] [...] | + + + + + | [facility]BAR[facility] OWEN | [address] [facility] | [place] [address] | | | OF CARE TESTS | [...] | alteplase (CATHFLO ACTIVASE) | Line | | 2 mg | | | | injection 2 mg 2 mg, | Lock | 9 15:18 | | | | | Intracatheter, ONCE, 1 dose, Wed | Instille | PDT | | | | | 09/26/18 at 1500 | d | | | | | + + + +------+------+------+ +---+---+ | | | +---+---+ + +-------+ +--------+---+---+ | aprepitant (CINVANTI) | Given | | 130 mg | | | | injectable emulsion 130 mg 130 | | 9 16:45 | | | | | mg, intravenous, ONCE, 1 dose, | | PDT | | | | | 09/26/18 at 1645 | | | | | | + +-------+ +--------+---+---+ +---+---+ | | | +---+---+ + +-------+ +------+---+---+ | dexamethasone PF (DECADRON) | Given | | 8 mg | | | | injection 8 mg 8 mg, | | 9 16:49 | | | | | intravenous, ONCE, 1 dose, Wed | | PDT | | | | | 09/26/18 at 1645 | | | | | | + +-------+ +------+---+---+ +---+---+ | | | +---+---+ + +---------+ + +---------+---+ | gemcitabine 1,600 mg in NaCl | New Bag | | 1,600 mg | 584.21 | | | 0.9 % (NS) IV 1,600 mg (rounded | | 9 18:20 | | mL/hr | | | from 1,590 mg = 1,000 mg/m2 | | PDT | | | | | 1.59 m2 Treatment plan recorded | | | | | | | BSA), intravenous, Administer | | | | | | | over 30 Minutes, ONCE, 1 dose, | | | | | | | 09/26/18 at 1730, HIGH ALERT | | | | | | | MEDICATION-CHEMOTHERAPY | | | | | | | Irritant. May run 500 mL NS to | | | | | | | decrease vein discomfort. | | | | | | + +---------+ + +---------+---+ +---+---+ | | | +---+---+ + +---------+ +--------+ +---+ | PACLitaxel (protein bound) | New Bag | | 200 mg | 80 mL/hr | | | (ABRAXANE) injection 200 mg 200 | | 9 17:39 | | | | | mg (rounded from 198.75 mg = 125 | | PDT | | | | | mg/m2 | | | | | | | 1.59 m2 Treatment plan recorded | | | | | | | BSA), intravenous, ONCE, 1 dose, | | | | | | | 09/26/18 at 1700 | | | | | | + +---------+ +--------+ +---+ +---+---+ | | | +---+---+ + +-------+ +---------+---+---+ | palonosetron HCl (ALOXI) | Given | | 0.25 mg | | | | injection 0.25 mg 0.25 mg, | | 9 16:50 | | | | | intravenous, ONCE, 1 dose, Wed | | PDT | | | | | 09/26/18 at 1645 | | | | | | + +-------+ +---------+---+---+ +---+---+ | | | +---+---+ in this encounter"
--- OUTSIDE RECORDS SUMMARY | ~2018-11-11 | XMS | Encounter Summary ---
Demographics + + + | Address | [address] | | | [place] [address] | + + + | Home Phone | | + + + | Preferred Language | Unknown | + + + | Marital Status | | + + + | Sabianism Affiliation | NRP | + + + | Race | White | + + + | Ethnic Group | Not or | + + + Author + + + | Author | [facility] | + + + | Organization | [facility] | + + + | Address | Unknown | + + + | Phone | Unavailable | + + + Support + + + + + | Name | Relationship | Address | Phone | + + + + + | ELSA GOODE | ECON | [address] | | | | | [place] [address] | | + + + + + Care Team Providers + +------+ + | Care Repair Electric Motor Assembler Name | Role | Phone | + +------+ + | Piotr Plummer MD | PCP | | + +------+ + Encounter Details +--------+ + + + + | Date | Type | Department | Care Team | Description | +--------+ + + + + | 08/13/ | Procedure | [facility] [address] | | | | 2018 | Pass | [address] | | | | | | [place] [address] | | | | | | [phone] | | | +--------+ + + + [...] | | | 2019 | | | ,PhD [address] | | | | | | [place] [facility] [place] | | | | | | [address] | | | | | | [phone] | | | | | | | | +--------+ + + + + | 11/21/ | Office | Hematology & | Toni Mccrary, | | | 2018 | Visit | Oncology | PhD BARB [address] | | | | | | [place], [place] | | | | | | [address] | | | | | | [phone] | | | | | | | | +--------+ + + + + | 11/28/ | Clinical | | | | | 2018 | Support | | | | | | Staff | | | | +--------+ + + + + | 11/28/ | Office | Hematology & | Taz Mcneal, | | | 2018 | Visit | Oncology | O[facility] [address] | | | | | | [address] | | | | | | [place], [place] | | | | | | [address] | | | | | | [phone] | | | | | | | | +--------+ + + + + | 11/28/ | Appointment | Hematology & | Onc, [address] | | | 2019 | | Oncology | [place], | | | | | | [place] [address] | | +--------+ + + + + | 11/29/ | Office | Physical Therapy | Genna Villegas PT | | | 2018 | Visit | | [address] | | | | | | [place], | | | | | | [place] [address] | | | | | | [phone] | | | | | | | [...] Rd | | | | | | [place], [place] | | | | | | [address] | | | | | | [phone] | | | | | | | | +--------+ + + + + | 12/12/ | Appointment | Hematology & | Onc, [address] | | | 2019 | | Oncology | [place], | | | | | | [place] [address] | | +--------+ + + + + as of this encounter Visit Diagnoses Not on filein this encounter"
--- OUTSIDE RECORDS SUMMARY | ~2018-11-11 | XMS | Encounter Summary ---
Demographics + + + | Address | [address] | | | [place] [address] | + + + | Home Phone | | + + + | Preferred Language | Unknown | + + + | Marital Status | | + + + | Quaker Affiliation | NRP | + + + | Race | White | + + + | Ethnic Group | Not or | + + + Author + + + | Author | [facility] | + + + | Organization | [facility] | + + + | Address | Unknown | + + + | Phone | Unavailable | + + + Support + + + + + | Name | Relationship | Address | Phone | + + + + + | ELSA GOODE | ECON | [address] | | | | | [place] [address] | | + + + + + Care Team Providers + +------+ + | Care Warehouse Supervisor [address] Shift Name | Role | Phone | + +------+ + | Piotr Plummer MD | PCP | | + +------+ + Reason for Visit + + + | Reason | Comments | + + + | Chemotherapy | gem abraxane | + + + Encounter Details +--------+ + + + + | Date | Type | Department | Care Team | Description | +--------+ + + + + | 10/31/ | Hospital | Hematology/Medical | Onc, [address] | | | 2019 | Encounter | [facility] | [address] [place], | | | | | [address] | [place] [address] | | | | | Mailcode: [facility] | | | | | | for Health and | | | | | | [facility] [address] | | | | | | [place], [place] | | | | | | [address] | | | | | | [phone] | | | +--------+ + + + [...] + + + as of this encounter Medications at Time of Discharge [...] | + + +---------+---------+ + + | apixaban 5 mg oral | Take 1 tablet by | 60 | 11 | 11/01/19 | | | tabletIndications: | mouth two times | tablet | | 19 | | | Pancreatic | daily. | | | | | | adenocarcinoma | | | | | | | (HCC), Liver | | | | | | | metastases (HCC), | | | | | | | Embolism due to any | | | | | | | device, implant or | | | | | | | graft, initial | | | | | | | encounter | | | | | | + [...] | 1 | 09/13/19 | | | acsqus-fcputljx-zkce | meals and 1 | capsule | [...] | + + +---------+---------+ + + | morphine ER 15 mg | Take 1 tablet by | 56 | 0 | 10/18/19 | | | oral tablet extended | mouth every twelve | tablet | | 19 | | | release | hours. | | | | | + + [...] | + + +---------+---------+ + + | oxyCODONE | Take 1-3 tablets by | 50 | 0 | 11/01/19 | | | (immediate release) | mouth every four | tablet | | 19 | | | 5 mg oral | hours as needed for | | | | | | tabletIndications: | severe pain. | | | | | | Pancreatic [...] | + + +---------+---------+ + + | polyethylene | Mix 8.5-17 g in | 119 g | 5 | 10/18/19 | | | glycol (MIRALAX) 17 | liquid and drink | | | 19 | | | gram/dose oral | once daily as needed | | | | | | powderIndications: | for constipation. | | | | | | constipation | Indications: | | | | | | | constipation | | | | | + + [...] + as of this encounter Progress Notes Camelia Toussaint RN - 10/31/2018 11:21 AM PDTChemotherapy Nurse Note Name: Elaine Goode Date: 10/31/2018 Physician: Hermann Allergies: Elaine has No Known Allergies. Diagnosis: Pancreatic Ca Significant Other: and Daughter Nursing Assessment: Fever: no; Diarrhea:No Constipation: No SOB / Cough: no; Rash: no Edema: no; Mucositis: no; Urinary: no; Neuropathy: no; S/S Bleeding: no; Severity (1=Not at all, 2=A little, 3=Quite a bit, 4=Very much) Nausea and/or Vomitin Fatigue: 1 Pain: 0 Location: Duration: Narrative: Patient here for [place]/Abraxane. PAC right chest. CBC and CMP were drawn via PAC at starter appointment, resulted via POC an d reviewed.. Positive blood return on IV line prior and after infusion. Medication infused w ith 250ml NS sidearm bag. Pt tolerated without incident. PAC flushed and deaccessed per p rotocol. 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 Refer to MAR and Onc Lines and [...] | | | | | | [place] [facility] [place] | | | | | | [address] | | | | | | [phone] | | | | | | | | +--------+ + + + + | 11/21/ | Office | Hematology & | Toni Mccrary, | | | 2019 | Visit | Oncology | PhD [address] | | | | | | [place] | | | | | | [address] | | | | | | [phone] | | | | | | | [...] [address] | | | | | | [address] | | | | | | [place], [place] | | | | | | [address] | | | | | | [phone] | | | | | | | | +--------+ + + + + | 11/28/ | Appointment | Hematology & | Onc, [address] | | | 2019 | | Oncology | [place], | | | | | | [place] [address] | | +--------+ + + + + | 11/29/ | Office | Physical Therapy | Genna Villegas, PT | | | 2019 | Visit | | [address] | | | | | | [place], | | | | | | [place] [address] | | | | | | [phone] | | | | | | | | +--------+ + + + + | 12/12/ | Clinical | | | | | 2019 | Support | | | | | | Staff | | | | +--------+ + + + + | 12/12/ | Office | Hematology & | Taz Mcneal, | | | 2018 | Visit | Oncology | O[facility]A [address] [facility] | | | | | | [address] | | | | | | [place] | | | | | | [address] | | | | | | [phone] | | | | | | | | +--------+ + + + + | 12/12/ | Appointment | Hematology & | Onc, [address] | | | 2019 | | Oncology | [place] | | | | | | [place] [address] | | +--------+ + + + + [...] emulsion 130 mg 130 | | 9 14:52 | | | | | mg, intravenous, ONCE, 1 dose, | | PDT | | | | | 10/31/18 at 1345 | | | | | | + +--------+ +--------+------+------+ +---+---+ | | | +---+---+ + +-------+ +------+---+---+ | dexamethasone PF (DECADRON) | Given | | 8 mg | | | | injection 8 mg 8 mg, | | 9 14:52 | | | | | intravenous, ONCE, 1 dose, Wed | | PDT | | | | | 10/31/18 at 1345 | | | | | | + +-------+ +------+---+---+ +---+---+ | | | +---+---+ + +---------+ + +---------+---+ | gemcitabine 1,200 mg in NaCl | New Bag | | 1,200 mg | 563.16 | | | 0.9 % (NS) IV 1,200 mg (800 | | 9 16:30 | | mL/hr | | | mg/m2 | | PDT | | | | | 1.5 m2 Treatment plan recorded | | | | | | | BSA), intravenous, Administer | | | | | | | over 30 Minutes, ONCE, 1 dose, | | | | | | | 10/31/18 at 1415, HIGH ALERT | | | | | | | MEDICATION-CHEMOTHERAPY | | | | | | | Irritant. May run 500 mL NS to | | | | | | | decrease vein discomfort. | | | | | | + +---------+ + +---------+---+ +---+---+ | | | +---+---+ + +---------+ +--------+ +---+ | PACLitaxel (protein bound) | New Bag | | 150 mg | 60 mL/hr | | | (ABRAXANE) injection 150 mg 150 | | 9 15:28 | | | | | mg (100 mg/m2 | | PDT | | | | | 1.5 m2 Treatment plan recorded | | | | | | | BSA), intravenous, ONCE, 1 dose, | | | | | | | 10/31/18 at 1345 | | | | | | + +---------+ +--------+ +---+ +---+---+ | | | +---+---+ + +-------+ +---------+---+---+ | palonosetron HCl (ALOXI) | Given | | 0.25 mg | | | | injection 0.25 mg 0.25 mg, | | 9 14:53 | | | | | intravenous, ONCE, 1 dose, Wed | | PDT | | | | | 10/31/18 at 1345 | | | | | | + +-------+ +---------+---+---+ +---+---+ | | | +---+---+ + +---------+ + +---+---+ | sodium chloride 0.9 % (NS) IV | New Bag | | 1,000 mL | | | | infusion 1,000 mL, intravenous, | | 9 14:05 | | | | | ONCE, 1 dose, 10/31/18 at 1345 | | PDT | | | | + +---------+ + +---+---+ +---+---+ | | | +---+---+ in this encounter"
--- OUTSIDE RECORDS SUMMARY | ~2018-11-11 | XMS | Encounter Summary ---
Demographics + + + | Address | [address] | | | [place] [address] | + + + | Home Phone | | + + + | Preferred Language | Unknown | + + + | Marital Status | | + + + | Judaism Affiliation | NRP | + + + [...] | | | | | [place] [address] | | + + + + + Care Team Providers + +------+ + | Care Group Contract Analyst Name | Role | Phone | + +------+ + | Piotr Plummer MD | PCP | | + +------+ + Reason for Visit + + + | Reason | Comments | + + + | Lab findings, | | | teaching, guidance, | | | and counseling | | + + + Encounter Details +--------+ + + + + | Date | Type | Department | Care Team | Description | +--------+ + + + + | 10/19/ | Telephone | [facility] | Haresh Truong W | Lab findings, | | 2019 | | [facility] [address] | MD Lynda [address] | teaching, guidance, | | | | [address] | [address] | and counseling | | | | Mailcode: Center | [place], [place] | | | | | [facility] and | [address] | | | | | [facility] | [phone] | | | | | [place], [place] | | | | | | [address] | | | | | | [phone] | | | +--------+ + + + [...] [place] | | | | | | [address] | | | | | | [phone] | | | | | | | | +--------+ + + + + | 11/21/ | Office | Hematology & | Toni Mccrary, | | | 2019 | Visit | Oncology | PhD L[address] | | | | | | [place] | | | | | | [address] | | | | | | [phone] | | | | | | | [...] [place] | | | | | | [address] | | | | | | [place], [place] | | | | | | [address] | | | | | | [phone] | | | | | | | | +--------+ + + + + | 11/28/ | Appointment | Hematology & | Gen [facility] [address] | | | 2019 | | Oncology | [place], | | | | | | [place] [address] | | +--------+ + + + + | 11/29/ | Office | Physical Therapy | Genna Villegas PT | | | 2019 | Visit | | [address] | | | | | | [place], | | | | | | [place] [address] | | | | | | [phone] | | | | | | | | +--------+ + + + + | 12/12/ | Clinical | | | | | 2018 | Support | | | | | | Staff | | | | +--------+ + + + + | 12/12/ | Office | Hematology & | Taz Mcneal, | | | 2018 | Visit | Oncology | [facility] [address] | | | | | | [address] | | | | | | [place] | | | | | | [address] | | | | | | [phone] | | | | | | | | +--------+ + + + + | 12/12/ | Appointment | Hematology & | Onc, [address] | | | 2019 | | Oncology | [place] | | | | | | [place] [address] | | +--------+ + + + + as of this encounter Visit Diagnoses Not on filein this encounter"
--- OUTSIDE RECORDS SUMMARY | ~2018-11-11 | XMS | Encounter Summary ---
Demographics + + + | Address | [address] | | | [place] [address] | + + + | Home Phone | | + + + | Preferred Language | Unknown | + + + | Marital Status | | + + + | Shinto Affiliation | NRP | + + + | Race | White | + + + | Ethnic Group | Not or | + + + Author + + + | Author | [facility] | + + + | Organization | [facility] | + + + | Address | Unknown | + + + | Phone | Unavailable | + + + Support + + + + + | Name | Relationship | Address | Phone | + + + + + | ELSA GOODE | ECON | [address] | | | | | [place] [address] | | + + + + + Care Team Providers + +------+ + | Care Vp Legal Affairs Name | Role | Phone | + +------+ + | Piotr Plummer MD | PCP | | + +------+ + Encounter Details +--------+ + + + + | Date | Type | Department | Care Team | Description | +--------+ + + + + | 09/23/ | MyChart | Hematology/Medical | Toni Mccrary, | Rash worsening | | 2019 | Encounter | [facility]cology at [place] | ,PhD [address] | | | | | for Health & Healing | [place], [place] | | | | | [address] | [address] | | | | | Mailcode: [place] | [phone] | | | | | for Health and | | | | | | [facility] [address] | | | | | | [place], [place] | | | | | | [address] | | | | | | [phone] | | | +--------+ + + + [...] | | | | | | [address] [place], [place] | | | | | | [address] | | | | | | [phone] | | | | | | | | +--------+ + + + + | 11/21/ | Office | Hematology & | Toni Mccrary, | | | 2018 | Visit | Oncology | MDPhD [address] | | | | | | [place], [place] | | | | | | [address] | | | | | | [phone] | | | | | | | [...] [address] | | | | | | [place], [place] | | | | | | [address] | | | | | | [phone] | | | | | | | | +--------+ + + + + | 11/28/ | Appointment | Hematology & | Onc, [address] | | | 2018 | | Oncology | [place], | | | | | | [place] [address] | | +--------+ + + + + | 11/29/ | Office | Physical Therapy | Genna Villegas, PT | | | 2019 | Visit | | [address] | | | | | | [place], | | | | | | [place] [address] | | | | | | [phone] | | | | | | | | +--------+ + + + + | 12/12/ | Clinical | | | | | 2019 | Support | | | | | | Staff | | | | +--------+ + + + + | 12/12/ | Office | Hematology & | Taz Mcneal, | | | 2018 | Visit | Oncology | [place] [address] [facility] | | | | | | [address] | | | | | | [place] | | | | | | [address] | | | | | | [phone] | | | | | | | | +--------+ + + + + | 12/12/ | Appointment | Hematology & | Onc, [address] | | | 2019 | | Oncology | [place] | | | | | | [place] [address] | | +--------+ + + + + as of this encounter Visit Diagnoses Not on filein this encounter"
--- OUTSIDE RECORDS SUMMARY | ~2018-11-11 | XMS | Encounter Summary ---
Demographics + + + | Address | [address] | | | [place] [address] | + + + | Home Phone | | + + + | Preferred Language | Unknown | + + + | Marital Status | | + + + | Sabianism Affiliation | NRP | + + + | Race | White | + + + | Ethnic Group | Not or | + + + Author + + + | Author | [facility] | + + + | Organization | [facility] | + + + | Address | Unknown | + + + | Phone | Unavailable | + + + Support + + + + + | Name | Relationship | Address | Phone | + + + + + | ELSA GOODE | ECON | [address] | | | | | [place] [address] | | + + + + + Care Team Providers + +------+ + | Care Buffer Chrome Name | Role | Phone | + [...] | | | | adenocarcino | ,PhD [address] | | | | | | ma (HCC) | [address] | | | | | | Liver | [place], | | | | | | metastases | [place] | | | | | | (HCC) | [address] | | | | | | Procedures | Phone: | | | | | | CT CHEST, | [phone] | | | | | | ABDOMEN AND | Fax: | | | | | | PELVIS W IV | [phone] | | | | | | CONTRAST | | | + +--------+ + + + + Encounter Details +--------+ + + + + | Date | Type | Department | Care Team | Description | +--------+ + + + + | 10/16/ | Nurse'S Aides Teacher | Hematology/Medical | Toni Mccrary, | Pancreatic | | 2019 | | [facility] at [place] | ,PhD [address] | adenocarcinoma (HCC) | | | | for Health & Healing | [address] [place], [place] | (Primary Dx); Liver | | | | [address] | [address] | metastases (HCC) | | | | Mailcode: [place] | [phone] | | | | | for Health and | | | | | | Healing, [address] | | | | | | [place], [place] | | | | | | [address] | | | | | | [phone] | | | +--------+ + + + [...] | 2019 | | | PhD [address] | | | | | | [place] [facility] [place] | | | | | | [address] | | | | | | [phone] | | | | | | | | +--------+ + + + + | 11/21/ | Office | Hematology & | Toni Mccrary, | | | 2018 | Visit | Oncology | PhD [address] | | | | | | [place] | | | | | | [address] | | | | | | [phone] | | | | | | | [...] Rd | | | | | | [place], [place] | | | | | | [address] | | | | | | [phone] | | | | | | | | +--------+ + + + + | 11/28/ | Appointment | Hematology & | Onc, Gen [address] | | | 2019 | | Oncology | [place], | | | | | | [place] [address] | | +--------+ + + + + | 11/29/ | Office | Physical Therapy | Genna Villegas, PT | | | 2018 | Visit | | [address] | | | | | | [place], | | | | | | [place] [address] | | | | | | [phone] | | | | | | | | +--------+ + + + + | 12/12/ | Clinical | | | | | 2019 | Support | | | | | | Staff | | | | +--------+ + + + + | 12/12/ | Office | Hematology & | Fredis Taz, | | | 2018 | Visit | Oncology | [place] [address] [facility] | | | | | | [address] | | | | | | [place], [place] | | | | | | [address] | | | | | | [phone] | | | | | | | | +--------+ + + + + | 12/12/ | Appointment | Hematology & | Onc, Gen [address] | | | 2018 | | Oncology | [place] | | | | | | [place] [address] | | +--------+ + + + + as of this encounter Results CT CHEST, ABDOMEN AND PELVIS W IV CONTRAST (10/17/2018 5:56 PM) + + + | Narrative | Performed At | + + + | EXAM: CT of the chest, abdomen and pelvis WITH intravenous contrast. | [facility] | | HISTORY: restaging pancreatic cancer, receiving | RADIOLOGY VOICE | | chemotherapy 73-year-old female diagnosed with pancreatic cancer | RECOGNITION 2 | | with liver metastases 2018 undergoing chemotherapy COMPARISON: CT | | | 07/12/2018, 08/13/2018 TECHNIQUE: CT of the chest, abdomen and | | | pelvis WITH intravenous contrast. Coronal and sagittal reformats were | | | generated and reviewed. FINDINGS: CHEST: The heart and great | | | vessels are unremarkable. There are a few prominent new mediastinal | | | lymph nodes. -14 x 9 mm prevascular node -17 x 13 mm precarinal | | | node Multiple pulmonary nodules diffuse (at least 5) are | | | redemonstrated and are unchanged. Index lesions are described as | | | follows: -6 mm right lower lobe pulmonary nodule, unchanged (4/153) | | | -3 mm left lower lobe pulmonary nodule, unchanged (4/87) -No pleural | | | fluid. Right chest wall port tip terminates in the right atrium. | | | There is thrombosis of the lower right internal jugular vein. LIVER: | | | multifocal liver metastases (at least 10) throughout all segments are | | | slightly decreased in size. Index lesions are described as follows: - | | | Segment 5/6 lesion measures 3.9 x 2.8 cm, previously 4.5 x 4.2 cm | | | (138) - Segment 4/8 lesion measures 12 x 10 mm, previously 20 x 19 mm | | | (108). BILIARY: There is moderate to severe intra and extrahepatic | | | biliary dilation which is new secondary to obstructing pancreatic head | | | mass. The gallbladder is severely distended as before without | | | inflammatory changes. Slight decrease in size of segment 8 subcapsular | | | hypodense collection likely biloma or hematoma. PANCREAS: There is | | | redemonstration of pancreatic head mass which is similar in size to | | | slightly decreased measuring 3.5 x 2.6 cm, previously 3.8 x 3.6 cm. | | | Unchanged dilation of the distal pancreatic duct. The mass closely | | | abuts the SMV and SMA involving less than 180 degrees of vessel | | | diameter. There is an enlarging peripancreatic node measuring 9 mm, | | | previously 5 mm which abuts and slightly narrows branches of the SMV | | | (147). There is a stable 2.6 x 1 cm portal caval node (131) There is | | | mass effect upon the descending duodenum with mild gastric distention | | | suggestive of a degree of outlet obstruction. SPLEEN: Unremarkable. | | | ADRENALS: Unremarkable. KIDNEYS/URETERS: 1 cm left inferior pole | | | hyperdense renal cyst. Kidneys are otherwise unremarkable. PELVIC | | | ORGANS/BLADDER: Unremarkable. GI TRACT: Unremarkable. PERITONEUM: | | | No free air or fluid. LYMPH NODES: No lymphadenopathy. VESSELS: | | | Unremarkable. BONES AND SOFT TISSUES: Unremarkable. | | | IMPRESSION: 1. Compared to 08/13/2018 primary pancreatic head mass | | | is grossly stable in size, however it now causes new moderate to | | | severe biliary dilation and possibly a mild degree of gastric outlet | | | obstruction. 2. Decrease in size of multifocal hepatic | | | metastases. 3. Enlarging mediastinal adenopathy is | | | indeterminate and may represent metastases or be reactive. Recommend | | | close attention on follow-up. 4. Multifocal indeterminate | | | pulmonary nodules are unchanged. I have personally reviewed the | | | images and, if necessary, edited the report. I agree with the report | | | as now presented. Final signature: Felix Almaguer MD | | | 10/18/2018 1:13 PM Preliminary: Cristiane Ellis MD 10/18/2018 11:55 AM | | | Dictation initiated: Cristiane Ellis MD 10/18/2018 8:05 AM | | + + + + + | Procedure Note | + + | Service Account, Radiant Res In Interface - 10/18/2018 1:14 PM PDT EXAM: CT of the | | chest, abdomen and pelvis WITH intravenous contrast. HISTORY: restaging pancreatic | | cancer, receiving chemotherapy 73-year-old female diagnosed with pancreatic cancer with | | liver metastases 2018 undergoing chemotherapy COMPARISON: CT 07/12/2018, 08/13/2018 | | TECHNIQUE: CT of the chest, abdomen and pelvis WITH intravenous contrast. Coronal and | | sagittal reformats were generated and reviewed. FINDINGS: CHEST: The heart and great | | vessels are unremarkable. There are a few prominent new mediastinal lymph nodes. -14 x 9 | | mm prevascular node -17 x 13 mm precarinal nodeMultiple pulmonary nodules diffuse (at | | least 5) are redemonstrated and are unchanged. Index lesions are described as follows: | | -6 mm right lower lobe pulmonary nodule, unchanged (4/153)-3 mm left lower lobe | | pulmonary nodule, unchanged (/87)-No pleural fluid.Right chest wall port tip terminates | | in the right atrium. There is thrombosis of the lower right internal jugular | | vein.LIVER: multifocal liver metastases (at least 10) throughout all segments are | | slightly decreased in size. Index lesions are described as follows:- Segment 5/6 lesion | | measures 3.9 x 2.8 cm, previously 4.5 x 4.2 cm (138)- Segment 4/8 lesion measures 12 x | | 10 mm, previously 20 x 19 mm (108).BILIARY: There is moderate to severe intra and | | extrahepatic biliary dilation which is new secondary to obstructing pancreatic head | | mass. The gallbladder is severely distended as before without inflammatory changes. | | Slight decrease in size of segment 8 subcapsular hypodense collection likely biloma or | | hematoma.PANCREAS: There is redemonstration of pancreatic head mass which is similar in | | size to slightly decreased measuring 3.5 x 2.6 cm, previously 3.8 x 3.6 cm. Unchanged | | dilation of the distal pancreatic duct. The mass closely abuts the SMV and SMA involving | | less than 180 degrees of vessel diameter. There is an enlarging peripancreatic node | | measuring 9 mm, previously 5 mm which abuts and slightly narrows branches of the SMV | | (147). There is a stable 2.6 x 1 cm portal caval node (131) There is mass effect upon | | the descending duodenum with mild gastric distention suggestive of a degree of outlet | | obstruction.SPLEEN: Unremarkable.ADRENALS: Unremarkable.KIDNEYS/URETERS: 1 cm left | | inferior pole hyperdense renal cyst. Kidneys are otherwise unremarkable.PELVIC | | ORGANS/BLADDER: Unremarkable. GI TRACT: Unremarkable.PERITONEUM: No free air or fluid. | | LYMPH NODES: No lymphadenopathy.VESSELS: Unremarkable. BONES AND SOFT TISSUES: | | Unremarkable. IMPRESSION: 1. Compared to 08/13/2018 primary pancreatic head mass is | | grossly stable in size, however it now causes new moderate to severe biliary dilation | | and possibly a mild degree of gastric outlet obstruction. 2. Decrease in size of | | multifocal hepatic metastases. 3. Enlarging mediastinal adenopathy is indeterminate and | | may represent metastases or be reactive. Recommend close attention on follow-up. 4. | | Multifocal indeterminate pulmonary nodules are unchanged. I have personally reviewed the | | images and, if necessary, edited the report. I agree with the report as now presented. | | Final signature: Felix Almaguer MD 10/18/2018 1:13 PM Preliminary: Cristiane Ellis MD | | 10/18/2018 11:55 AM Dictation initiated: Cristiane Ellis MD 10/18/2018 8:05 AM | |IMPRESSION: | | | |1. Compared to 08/13/2018 primary pancreatic head mass is grossly stable in size, however it now causes new moderate to severe biliary dilation and possibly a mild degree of gastric ou tlet obstruction. | | | |2. Decrease in size of multifocal hepatic metastases. | | | |3. Enlarging mediastinal adenopathy is indeterminate and may represent metastases or be re active. Recommend close attention on follow-up. | | | |4. Multifocal indeterminate pulmonary nodules are unchanged. | | | |I have personally reviewed the images and, if necessary, edited the report. I agree with th e report as now presented. | | | |Final signature: Felix Almaguer MD 10/18/2018 1:13 PM | |Preliminary: Cristiane Ellis MD 10/18/2018 11:55 AM | |Dictation initiated: Cristiane Ellis MD 10/18/2018 8:05 AM | + + + +---------+ + + | Performing | Address | City/State/Zipcode | Phone Number | | Organization | | | | + +---------+ + + | [facility] | | | | | VOICE RECOGNITION 2 | | | | + +---------+ + + in this encounter Visit Diagnoses + + | Diagnosis | + + | Pancreatic adenocarcinoma (HCC) - Primary | + + | Malignant neoplasm of pancreas, part unspecified | + + | Liver metastases (HCC) | + + | Secondary malignant neoplasm of liver | + +"
--- OUTSIDE RECORDS SUMMARY | ~2018-11-11 | XMS | Encounter Summary ---
Demographics + + + | Address | [address] | | | [place] [address] | + + + | Home Phone [...] | | | | | [place] [address] | | + + + + + Care Team Providers + +------+ + | Care Insulation Power Unit Tender Name | Role | Phone | + +------+ + | Piotr Plummer MD | PCP | | + +------+ + Reason for Visit + + + | Reason | Comments | + + + | Genetic test | [facility] | + + + Encounter Details +--------+ + + + + | Date | Type | Department | Care Team | Description | +--------+ + + + + | 08/21/ | Documentati | Hematology/Medical | Toni Mccrary, | Genetic test | | 2019 | on | [facility] at [place] | ,PhD [address] | ([facility]) | | | | for Health & Healing | [address] [place], [place] | | | | | [address] | [address] | | | | | Mailcode: [place] | [phone] | | | | | for Health and | | | | | | Healing, [address] | | | | | | [place], [place] | | | | | | [address] | | | | | | [phone] | | | +--------+ + + + [...] [place] | | | | | | [address] | | | | | | [phone] | | | | | | | | +--------+ + + + + | 11/21/ | Office | Hematology & | Toni Mccrary, | | | 2019 | Visit | Oncology | PhD [address] | | | | | | [place] | | | | | | [address] | | | | | | [phone] | | | | | | | [...] [address] | | | | | | [place] | | | | | | [address] | | | | | | [phone] | | | | | | | | +--------+ + + + + | 11/28/ | Appointment | Hematology & | [facility] [address] | | | 2019 | | Oncology | [place] | | | | | | [place] [address] | | +--------+ + + + + | 11/29/ | Office | Physical Therapy | Genna Villegas PT | | | 2019 | Visit | | [address] | | | | | | [place], | | | | | | [place] [address] | | | | | | [phone] | | | | | | | [...] [place] | | | | | | [address] | | | | | | [phone] | | | | | | | | +--------+ + + + + | 12/12/ | Appointment | Hematology & | Onc, [address] | | | 2019 | | Oncology | [place] | | | | | | [place] [address] | | +--------+ + + + + as of this encounter Visit Diagnoses Not on filein this encounter"
--- OUTSIDE RECORDS SUMMARY | ~2018-11-11 | XMS | Encounter Summary ---
Demographics + + + | Address | [address] | | | [place] [address] | + + + | Home Phone | | + + + | Preferred Language | Unknown | + + + | Marital Status | | + + + | Pentecostalism Affiliation | NRP | + + + | Race | White | + + + | Ethnic Group | Not or | + + + Author + + + | Author | [facility] | + + + | Organization | [facility] | + + + | Address | Unknown | + + + | Phone | Unavailable | + + + Support + + + + + | Name | Relationship | Address | Phone | + + + + + | ELSA GOODE | ECON | [address] | | | | | [place] [address] | | + + + + + Care Team Providers + +------+ + | Care Or Rn Name | Role | Phone | + [...] | 2019 | Encounter | [facility] [place] | ANP,[facility] [address] | | | | | for Health & Healing | [address] | | | | | [address] | [place], [place] | | | | | Mailcode: [place] | [address] | | | | | for Health and | [phone] | | | | | Healing, [place] [address] | | | | | | [place], [place] | | | | | | [address] | | | | | | [phone] | | | +--------+ + + + [...] DAY | | | | | | [place], [place] | | | | | | [address] | | | | | | [phone] | | | | | | | | +--------+ + + + + | 11/21/ | Office | Hematology & | Toni Mccrary, | | | 2018 | Visit | Oncology | MDPhD [address] | | | | | | [place], [place] | | | | | | [address] | | | | | | [phone] | | | | | | | [...] [address] | | | | | | [place], [place] | | | | | | [address] | | | | | | [phone] | | | | | | | | +--------+ + + + + | 11/28/ | Appointment | Hematology & | [facility] [address] | | | 2019 | | Oncology | [place], | | | | | | [place] [address] | | +--------+ + + + + | 11/29/ | Office | Physical Therapy | Genna Villegas, PT | | | 2019 | Visit | | [address] | | | | | | [place], | | | | | | [place] [address] | | | | | | [phone] | | | | | | | [...] [place] | | | | | | [address] | | | | | | [phone] | | | | | | | | +--------+ + + + + | 12/12/ | Appointment | Hematology & | Gen Elizabeth [address] | | | 2019 | | Oncology | [place] | | | | | | [place] [address] | | +--------+ + + + + as of this encounter Visit Diagnoses Not on filein this encounter"
--- OUTSIDE RECORDS SUMMARY | ~2018-11-11 | XMS | Encounter Summary ---
Demographics + + + | Address | [address] | | | [place] [address] | + + + | Home Phone | | + + + | Preferred Language | Unknown | + + + | Marital Status | | + + + | Presybeterian Affiliation | NRP | + + + | Race | White | + + + | Ethnic Group | Not or | + + + Author + + + | Author | [facility] | + + + | Organization | [facility] | + + + | Address | Unknown | + + + | Phone | Unavailable | + + + Support + + + + + | Name | Relationship | Address | Phone | + + + + + | ELSA GOODE | ECON | [address] | | | | | [place] [address] | | + + + + + Care Team Providers + +------+ + | Care Painter Hand Name | Role | Phone | + +------+ + | Piotr Plummer MD | PCP | | + +------+ + Encounter Details +--------+ + + + + | Date | Type | Department | Care Team | Description | +--------+ + + + + | 11/09/ | Factory Machine Computer Operator | Hematology/Medical | Toni Mccrary, | | | 2019 | | [facility] at [place] | ,PhD [address] | | | | | for Health & Healing | [place], [place] | | | | | [address] | [address] | | | | | Mailcode: [place] | [phone] | | | | | for Health and | | | | | | Healing, [address] | | | | | | [place], [place] | | | | | | [address] | | | | | | [phone] | | | +--------+ + + + [...] | | | | | | [place], [place] | | | | | | [address] | | | | | | [phone] | | | | | | | | +--------+ + + + + | 11/21/ | Office | Hematology & | Toni Mccrary, | | | 2018 | Visit | Oncology | PhD [address] | | | | | | [place], [place] | | | | | | [address] | | | | | | [phone] | | | | | | | [...] [address] | | | | | | [place], [place] | | | | | | [address] | | | | | | [phone] | | | | | | | | +--------+ + + + + | 11/28/ | Appointment | Hematology & | Onc, Gen [address] | | | 2019 | | Oncology | [place], | | | | | | [place] [address] | | +--------+ + + + + | 11/29/ | Office | Physical Therapy | Genna Villegas, PT | | | 2019 | Visit | | [address] | | | | | | [place], | | | | | | [place] [address] | | | | | | [phone] | | | | | | | | +--------+ + + + + | 12/12/ | Clinical | | | | | 2019 | Support | | | | | | Staff | | | | +--------+ + + + + | 12/12/ | Office | Hematology & | Taz Mcneal, | | | 2018 | Visit | Oncology | [place] [address] [facility] | | | | | | [address] | | | | | | [place] | | | | | | [address] | | | | | | [phone] | | | | | | | | +--------+ + + + + | 12/12/ | Appointment | Hematology & | [facility] [address] | | | 2018 | | Oncology | [place] | | | | | | [place] [address] | | +--------+ + + + + as of this encounter Visit Diagnoses Not on filein this encounter"
--- OUTSIDE RECORDS SUMMARY | ~2018-11-11 | XMS | Encounter Summary ---
Demographics + + + | Address | [address] | | | [place] [address] | + + + | Home Phone | | + + + | Preferred Language | Unknown | + + + | Marital Status | | + + + | Shinto Affiliation | NRP | + + + | Race | White | + + + | Ethnic Group | Not or | + + + Author + + + | Author | [facility] | + + + | Organization | [facility] | + + + | Address | Unknown | + + + | Phone | Unavailable | + + + Support + + + + + | Name | Relationship | Address | Phone | + + + + + | ELSA GOODE | ECON | [address] | | | | | [place] [address] | | + + + + + Care Team Providers + +------+ + | Care Senior Compensation Analyst Name | Role | Phone | [...] Description | +--------+---------+ + + + | 08/21/ | Office | Hematology/Medical | Toni Mccrary, | Pancreatic | | 2019 | Visit | Oncology at [place] | ,PhD [address] | adenocarcinoma (HCC) | | | | for Health & Healing | [address] [place], [place] | (Primary Dx); Liver | | | | [address] | [address] | metastases (HCC); | | | | Mailcode: Center | [phone] | Encounter for | | | | for Health and | | antineoplastic | | | | Healing, Building [address] | | chemotherapy | | | | [place], [place] | | | | | | [address] | | | | | | [phone] | | | +--------+---------+ + + + [...] + + + | Blood Pressure | 135/68 | 08/21/2018 2:56 PM PST | + + + + | Pulse | 95 | 08/21/2018 2:56 PM PST | + + + + | Temperature | 37.2 C (99 F) | 08/21/2018 2:56 PM PST | + + + + | Respiratory Rate | 14 | 08/21/2018 2:56 PM PST | + + + + | Oxygen Saturation | 97% | 08/21/2018 2:56 PM PST | + + + + | Inhaled Oxygen | - | - | | Concentration | | | + + + + | Weight | 58.1 kg (128 lb 1.6 | 08/21/2018 2:56 PM PST | | | oz) | | + + + + | Height | - | - | + + + + | Body Mass Index | 22.69 | 08/21/2018 2:56 PM PST | + + + + in this encounter Progress Notes Toni Mccrary MD,PhD - 08/21/2018 2:45 PM PSTFormatting of this note may be different fr [...] of pain medications. Unable to enroll for Jamilah castellanos due to inadequately controlled pain. CT without acute findings. Interim history: Feels better on current regular pain regimen. Denies fevers. Denies chill s. Denies jaundice. 08/28/18: Port revised. Review of systems: Denies nausea vomiting. Denies jaundice. The remainder of her complete 12 point review of systems is negative except as above. I reviewed the entire the patient completed return visit health update and review of system s as documented in the EMR. BP 135/68 | Pulse 95 | Temp 37.2 C (99 F) (Oral) | Resp 14 | Wt 58.1 kg (128 lb 1.6 oz) | SpO2 97% | BMI 22.69 kg/m | BSA 1.61 m General: NAD HEENT: non-icteric, PERRLA/EOMI, oropharnyx clear NECK: supple LN: none appreciated LUNGS: clear. Port site intact. CV: tachycardia ABD: nontender. No HSM. EXT: no CCE NEURO: intact SKIN: non-icteric PSYCH: affect appropriate Lab Results Component Value Date CA199 6,647.5 09/05/2018 CA199 8,292.6 08/29/2018 CA199 9,458.1 08/22/2018 Lab Results Component Value Date WBC 4.8 09/05/2018 HB 9.6 09/05/2018 HCT 29.7 09/05/2018 PLT 162 09/05/2018 MCV 86.8 09/05/2018 RDW 37.8 08/22/2018 Lab Results Component Value Date NA 139 09/05/2018 K 3.7 09/05/2018 CL 99 09/05/2018 BICARB 31 09/05/2018 BUN 9 09/05/2018 CR <0.5 09/05/2018 GLU 123 09/05/2018 CA 9.3 09/05/2018 AST 30 09/05/2018 ALT 52 09/05/2018 AP 205 09/05/2018 TBILI 0.4 09/05/2018 TP 6.6 09/05/2018 ALB 3.5 09/05/2018 I independently reviewed the imaging studies. CT ABDOMEN AND PELVIS W IV CONTRAST Order: [id number] Performed: 08/13/2018 13:22 Status: Final result Visible [...] hematoma. These results were discussed with the resident care spec on 08/13/2018 at approximately 1:45 PM by Sacha Eastman DO. I have personally reviewed the images and, if necessary, edited the report. I agree with e report as now presented. Final signature: Felix Almaguer MD 08/13/2018 5:07 PM Preliminary: Sacha Eastman MD 08/13/2018 2:41 PM Dictation initiated: Sacha Eastman MD 08/13/2018 1:36 PM PLAN: Metastatic pancreatic adenocarcinoma. We were planning to consent and enroll her on t he first-line gemcitabine/Abraxane plus minus BBI 608. (Morpheus trial is closed for fro ntline combination immunotherapeutic arm) but unable because of urgent evaluation due post l ap pain. Of note, disease progression noted in short interval scan. --plan to start SOC gem/abraxane given pace of disease. --I discussed the goals, objectives, risks, benefits, and toxicities of therapy and the pat ient wishes to proceed. --Will need close and frequent monitoring physical examinations and laboratory monitoring f or toxicities of ongoing cytotoxic chemotherapy. I spent 45 minutes with patient face to face (>50 % time was spent on counseling patient on disease prognosis, treatment options, and coordination of care). in this encounter Plan of Treatment +--------+ [...] | | | | | | [place] | | | | | | [address] | | | | | | [phone] | | | | | | | | +--------+ + + + + | 11/21/ | Office | Hematology & | Toni Mccrary, | | | 2018 | Visit | Oncology | PhD [address] | | | | | | [place] | | | | | | [address] | | | | | | [phone] | | | | | | | | +--------+ + + + + | 11/28/ | Clinical | | | | | 2018 | Support | | | | | | Staff | | | | +--------+ + + + + | 11/28/ | Office | Hematology & | Taz Mcneal, | | | 2018 | Visit | Oncology | [place] [address] | | | | | | [address] | | | | | | [place] | | | | | | [address] | | | | | | [phone] | | | | | | | | +--------+ + + + + | 11/28/ | Appointment | Hematology & | Onc, [address] | | | 2018 | | Oncology | [place] | | | | | | [place] [address] | | +--------+ + + + + | 11/29/ | Office | Physical Therapy | Genna Villegas PT | | | 2019 | Visit | | [address] | | | | | | [place] [place], | | | | | | [place] [address] | | | | | | [phone] | | | | | | | [...] [address] | | | | | | [place], [place] | | | | | | [address] | | | | | | [phone] | | | | | | | | +--------+ + + + + | 12/12/ | Appointment | Hematology & | Onc Gen [address] | | | 2019 | | Oncology | [place] | | | | | | [place] [address] | | +--------+ + + + + as of this encounter Visit Diagnoses + + | Diagnosis | + + | Pancreatic adenocarcinoma (HCC) - Primary | + + | Malignant neoplasm of pancreas, part unspecified | + + | Liver metastases (HCC) | + + | Secondary malignant neoplasm of liver | + + | Encounter for antineoplastic chemotherapy | + +"
--- OUTSIDE RECORDS SUMMARY | ~2018-11-11 | XMS | Encounter Summary ---
Demographics + + + | Address | [address] | | | [place] [address] | + + + | Home Phone [...] + + + | Author | [facility] | + + + | Organization | [facility] | + + + | Address | Unknown | + + + | Phone | Unavailable | + + + Support + + + + + | Name | Relationship | Address | Phone | + + + + + | ELSA GOODE | ECON | [address] | | | | | [place] [address] | | + + + + + Care Team Providers + +------+ + | Care Salad Maker Name | Role | Phone | + +------+ + | Piotr Plummer MD | PCP | | + +------+ + Encounter Details +--------+ + + + + | Date | Type | Department | Care Team | Description | +--------+ + + + + | 08/22/ | Senior Art Director | Hematology/Medical | Toni Mccrary, | Pancreatic | | 2019 | | [facility] at [facility] | ,PhD [address] | adenocarcinoma (HCC) | | | | for Health & Healing | [place], [place] | (Primary Dx); Liver | | | | [address] | [address] | metastases (HCC) | | | | Mailcode: [place] | [phone] | | | | | for Health and | | | | | | [facility], [place] [address] | | | | | | [place], [place] | | | | | | [address] | | | | | | [phone] | | | +--------+ + + + [...] | | | | | | [place], [place] | | | | | | [address] | | | | | | [phone] | | | | | | | | +--------+ + + + + | 11/21/ | Office | Hematology & | Toni Mccrary, | | | 2018 | Visit | Oncology | PhD [address] | | | | | | [place] | | | | | | [address] | | | | | | [phone] | | | | | | | [...] [address] | | | | | | [place], [place] | | | | | | [address] | | | | | | [phone] | | | | | | | | +--------+ + + + + | 11/28/ | Appointment | Hematology & | Gen [address] | | | 2018 | | Oncology | [place] | | | | | | [place] [address] | | +--------+ + + + + | 11/29/ | Office | Physical Therapy | Genna Villegas, PT | | | 2018 | Visit | | [address] | | | | | | [place], | | | | | | [place] [address] | | | | | | [phone] | | | | | | | [...] [address] | | | | | | [place], [place] | | | | | | [address] | | | | | | [phone] | | | | | | | | +--------+ + + + + | 12/12/ | Appointment | Hematology & | [address]Gen [address] | | | 2018 | | Oncology | [place] | | | | | | [place] [address] | | +--------+ + + + + as of this encounter Results X-RAY CHEST 2 VIEW (08/22/2018 2:57 PM) + + + | Narrative | Performed At | + + + | EXAM: CHEST 2 VIEWS HISTORY: assess Port placement; unable to | [facility] | | withdraw blood, TPA infuses easily, ? location, COMPARISON: | RADIOLOGY VOICE | | August 10, 2018 FINDINGS: The right chest port remains | RECOGNITION 2 | | projecting over the right superior vena cava, although the tip has | | | been slightly retracted from intraprocedural imaging. The | | | cardiomediastinal contour is normal. The lungs are clear. There is a | | | small right effusion. There is no pneumothorax. There is no pulmonary | | | edema. The bones are intact. IMPRESSION: Slight retraction of | | | the right chest port tip from intraprocedural imaging, however the tip | | | remains projecting over the right superior vena cava. If there is | | | ongoing clinical concern, consider consultation with interventional | | | radiology to definitively assess tip location. I have personally | | | reviewed the images and, if necessary, edited the report. I agree with | | | the report as now presented. Final signature: Felix Davis | | | 08/22/2018 2:59 PM Preliminary: Felix Davis MD | | | Dictation initiated: Felix Davis MD 08/22/2018 2:57 PM | | + + + + + | Procedure Note | + + | Service Account, Radiant Res In Interface - 08/22/2018 3:01 PM PST EXAM: CHEST 2 | | VIEWS HISTORY: assess Port placement; unable to withdraw blood, TPA infuses easily, ? | | location, COMPARISON: August 10, 2018 FINDINGS: The right chest port remains | | projecting over the right superior vena cava, although the tip has been slightly | | retracted from intraprocedural imaging. The cardiomediastinal contour is normal. The | | lungs are clear. There is a small right effusion. There is no pneumothorax. There is no | | pulmonary edema. The bones are intact. IMPRESSION: Slight retraction of the right chest | | port tip from intraprocedural imaging, however the tip remains projecting over the right | | superior vena cava. If there is ongoing clinical concern, consider consultation with | | interventional radiology to definitively assess tip location. I have personally reviewed | | the images and, if necessary, edited the report. I agree with the report as now | | presented. Final signature: Felix Davis MD 08/22/2018 2:59 PM Preliminary: Felix Davis MD Dictation initiated: Felix Davis MD 08/22/2018 2:57 PM | |Slight retraction of the right chest port tip from intraprocedural imaging, however the tip remains projecting over the right superior vena cava. If there is ongoing clinical concern, consider consultation with | |interventional radiology to definitively assess tip location. | | | |I have personally reviewed the images and, if necessary, edited the report. I agree with th e report as now presented. | | | |Final signature: Felix Davis MD 08/22/2018 2:59 PM | |Preliminary: Felix Davis MD | |Dictation initiated: Felix Davis MD 08/22/2018 2:57 PM | + + + +---------+ + + [...]
--- OUTSIDE RECORDS SUMMARY | ~2018-11-11 | XMS | Encounter Summary ---
Demographics + + + | Address | [address] | | | [place] [address] | + + + | Home Phone | | + + + | Preferred Language | Unknown | + + + | Marital Status | | + + + | Pentecostal Affiliation | NRP | + + + [...] | | | | | [place] [address] | | + + + + + Care Team Providers + +------+ + | Care Real Estate Development Manager Name | Role | Phone | + +------+ + | Piotr Plummer MD | PCP | | + +------+ + Reason for Referral Consultation (Routine) + +---------+ + + + + | Status | Reason | Specialty | Diagnoses / | Referred By | Referred To | | | | | Procedures | Contact | Contact | + +---------+ + + + + | New Request | Other | Hematology & | Diagnoses | Hermann, | [place], | | | | Oncology | Pancreatic | Toni | Souleymane Serrano NP | | | | | adenocarcino | ,PhD [address] | [address] | | | | | ma (HCC) | [address] | Ave | | | | | Liver | [place], | [place], [place] | | | | | metastases | [place] | [address] | | | | | (HCC) | [address] | Phone: | | | | | Procedures | Phone: | [phone] | | | | | CONSULT TO | [phone] | Fax: | | | | | ADULT OUTPT | Fax: | [phone] | | | | | SUPPORTIVE | [phone] | | | | | | ONCOLOGY/PAL | | | | | | | LIATIVE | | | | | | | MEDICINE | | | + +---------+ + + + + Encounter Details +--------+ + + + + | Date | Type | Department | Care Team | Description | +--------+ + + + + | 08/16/ | Documentati | Hematology/Medical | Toni Mccrary, | | | 2019 | on | [facility] at [place] | ,PhD [address] | | | | | for Health & Healing | [address] [place], [place] | | | | | [address] | [address] | | | | | Mailcode: [place] | [phone] | | | | | for Health and | | | | | | [facility] [address] | | | | | | [place], [place] | | | | | | [address] | | | | | | [phone] | | | +--------+ + + + [...] | | | | | | [facility] [place] | | | | | | [address] | | | | | | [phone] | | | | | | | | +--------+ + + + + | 11/21/ | Office | Hematology & | Toni Mccrary, | | | 2018 | Visit | Oncology | PhD BARB [address] | | | | | | [place], [place] | | | | | | [address] | | | | | | [phone] | | | | | | | [...] [address] | | | | | | [place], [place] | | | | | | [address] | | | | | | [phone] | | | | | | | | +--------+ + + + + | 11/28/ | Appointment | Hematology & | Onc, Gen [address] | | | 2018 | | Oncology | [place], | | | | | | [place] [address] | | +--------+ + + + + | 11/29/ | Office | Physical Therapy | Genna Villegas, PT | | | 2019 | Visit | | [address] | | | | | | [place], | | | | | | [place] [address] | | | | | | [phone] | | | | | | | [...] [address] | | | | | | [place], [place] | | | | | | [address] | | | | | | [phone] | | | | | | | | +--------+ + + + + | 12/12/ | Appointment | Hematology & | [address]Gen [address] | | | 2018 | | Oncology | [place] | | | | | | [place] [address] | | +--------+ + + + + as of this encounter Visit Diagnoses + + | Diagnosis | + + | Pancreatic adenocarcinoma (HCC) - Primary | + + | Malignant neoplasm of pancreas, part unspecified | + + | Liver metastases (HCC) | + + | Secondary malignant neoplasm of liver | + +"
--- OUTSIDE RECORDS SUMMARY | ~2018-11-11 | XMS | Encounter Summary ---
Demographics + + + | Address | [address] | | | [place] [address] | + + + | Home Phone | | + + + | Preferred Language | Unknown | + + + | Marital Status | | + + + | Oriental Orthodox Affiliation | NRP | + + [...] | | | | | [place] [address] | | + + + + + Care Team Providers + +------+ + | Care Label Designer Name | Role | Phone | + [...] [address] | | | | | | amkeda ([facility]) | [address] | | | | | | Central line | Rd | | | | | | clotted, | [place], [place] | | | | | | initial | [address] | | | | | | encounter | Phone: | | | | | | (HCC) | [phone] | | | | | | Procedures | Fax: | | | | | | IR PORT | [phone] | | | | | | PROCEDURE | | | + +--------+ + + + + Encounter Details +--------+ + + + + | Date | Type | Department | Care Team | Description | +--------+ + + + + | 08/22/ | Transportation Driver | Digestive Health | Martin Carrero, | Pancreatic | | 2019 | | Center at [facility] [address] | [address] | adenocarcinoma (HCC) | | | | [address] | [address] | (Primary Dx); | | | | Mailcode: Center | [place], [place] | Central line | | | | for Health and | [address] | clotted, initial | | | | Healing, Building [address] | [phone] | encounter (HCC) | | | | [place], [place] | | | | | | [address] | | | | | | [phone] | | | +--------+ + + + [...] | | | | | | [place], [place] | | | | | | [address] | | | | | | [phone] | | | | | | | | +--------+ + + + + | 11/21/ | Office | Hematology & | Toni Mccrary, | | | 2018 | Visit | Oncology | PhD L[address] | | | | | | [place], [place] | | | | | | [address] | | | | | | [phone] | | | | | | | [...] Rd | | | | | | [place], [place] | | | | | | [address] | | | | | | [phone] | | | | | | | | +--------+ + + + + | 11/28/ | Appointment | Hematology & | Onc, Gen [address] | | | 2019 | | Oncology | [place], | | | | | | [place] [address] | | +--------+ + + + + | 11/29/ | Office | Physical Therapy | Genna Villegas, PT | | | 2019 | Visit | | [address] | | | | | | [place], | | | | | | [place] [address] | | | | | | [phone] | | | | | | | [...] Rd | | | | | | [place], [place] | | | | | | [address] | | | | | | [phone] | | | | | | | | +--------+ + + + + | 12/12/ | Appointment | Hematology & | [address]Gen [address] | | | 2018 | | Oncology | [place], | | | | | | [place] [address] | | +--------+ + + + + [...]
--- OUTSIDE RECORDS SUMMARY | ~2018-11-11 | XMS | Encounter Summary ---
Demographics + + + | Address | [address] | | | [place] [address] | + + + | Home Phone [...] + + + | Author | [facility] | + + + | Organization | [facility] | + + + | Address | Unknown | + + + | Phone | Unavailable | + + + Support + + + + + | Name | Relationship | Address | Phone | + + + + + | ELSA GOODE | ECON | [address] | | | | | [place] [address] | | + + + + + Care Team Providers + +------+ + | Care Fryer Line Helper Name | Role | Phone | + +------+ + | Piotr Plummer MD | PCP | | + +------+ + Encounter Details +--------+ + + + + | Date | Type | Department | Care Team | Description | +--------+ + + + + | 10/03/ | MyChart | Hematology/Medical | Dinesh Santiago, | RE: [employer] | | 2019 | Encounter | [facility] at [place] | MICHELE,JONATHANPN [address] | | | | | for Health & Healing | [address] | | | | | [address] | [place], [place] | | | | | Mailcode: [place] | [address] | | | | | for Health and | [phone] | | | | | [facility] [address] | | | | | | [place], [place] | | | | | | [address] | | | | | | [phone] | | | +--------+ + + + [...] | +--------+ + + + + | // | Procedure | Hematology & | | | | 2019 | Pass | Oncology | | | +--------+ + + + + | 11/21/ | Appointment | Radiology | Toni Mccrary, | | | 2019 | | | MDPhD [address] | | | | | | [place] | | | | | | [address] | | | | | | [phone] | | | | | | | | +--------+ + + + + | 11/21/ | Office | Hematology & | Toni Mccrary, | | | 2018 | Visit | Oncology | MDPhD [address] | | | | | | [place] | | | | | | [address] | | | | | | [phone] | | | | | | | [...] Rd | | | | | | [place], [place] | | | | | | [address] | | | | | | [phone] | | | | | | | | +--------+ + + + + | 11/28/ | Appointment | Hematology & | Onc, [address] | | | 2018 | | Oncology | [place], | | | | | | [place] [address] | | +--------+ + + + + | 11/29/ | Office | Physical Therapy | Genna Villegas, PT | | | 2018 | Visit | | [address] | | | | | | [place], | | | | | | [place] [address] | | | | | | [phone] | | | | | | | [...] [place] | | | | | | [address] | | | | | | [phone] | | | | | | | | +--------+ + + + + | 12/12/ | Appointment | Hematology & | Onc, Gen [address] | | | 2018 | | Oncology | [place] | | | | | | [place] [address] | | +--------+ + + + + as of this encounter Visit Diagnoses Not on filein this encounter"
--- OUTSIDE RECORDS SUMMARY | ~2018-11-11 | XMS | Encounter Summary ---
Demographics + + + | Address | [address] | | | [place] [address] | + + + | Home Phone | | + + + | Preferred Language | Unknown | + + + | Marital Status | | + + + | Cheondoism Affiliation | NRP | + + + [...] | | | | | [place] [address] | | + + + + + Care Team Providers + +------+ + | Care Logger Driving Horses Name | Role | Phone | + +------+ + | Piotr Plummer MD | PCP | | + +------+ + Reason for Visit + + + | Reason | Comments | + + + | Lab Draw | PAC | + + + | Chemotherapy | Abraxne and Gemzar | + + + Encounter Details +--------+ + + + + | Date | Type | Department | Care Team | Description | +--------+ + + + + | 10/03/ | Hospital | Hematology/Medical | A, [address] | | | 2019 | Encounter | Oncology at [facility] | [address] [place], | | | | | [address] | [place] [address] | | | | | Mailcode: [place] | | | | | | [facility] | | | | | | [facility]aling, [address] | | | | | | [place], [place] | | | | | | [address] | | | | | | [phone] | | | +--------+ + + + [...] + + + | Blood Pressure | 122/70 | 10/03/2018 1:41 PM PDT | + + + + | Pulse | 89 | 10/03/2018 1:41 PM PDT | + + + + | Temperature | 36.9 C (98.5 F) | 10/03/2018 1:41 PM PDT | + + + + | Respiratory Rate | 16 | 10/03/2018 1:41 PM PDT | + + + + | Oxygen Saturation | 95% | 10/03/2018 1:41 PM PDT | + + + + | Inhaled Oxygen | - | - | | Concentration | | | + + + + | Weight | 53.7 kg (118 lb 6.4 | 10/03/2018 1:41 PM PDT | | | oz) | | + + + + | Height | - | - | + + + + | Body Mass Index | 20.97 | 10/03/2018 1:41 PM PDT | + + + + [...] | 1 | 09/13/19 | | | [id number] | meals and 1 | capsule | [...] + as of this encounter Progress Notes Antonieta Werner, JAY - 10/03/2018 1:00 PM PDTChemotherapy Nurse Note Name: Elaine Goode Date: 10/03/2018 Physician: Hermann Allergies: Elaine has No Known Allergies. Diagnosis: Pancreatic with liver mets Significant Other: Daughter and Nursing Assessment: Fever: no; Diarrhea:Yes, Patient encouraged to take PRN Immodium and increase hydration Constipation: No SOB / Cough: no; Rash: no Edema: no; Mucositis: mild; using mouth rinse with good effect Urinary: no; Neuropathy: no; S/S Bleeding: no; Severity (1=Not at all, 2=A little, 3=Quite a bit, 4=Very much) Nausea and/or Vomitin Fatigue: 3 Pain: Denies Narrative: Patient here for C2D15 Abraxane and Gemcitabine. PAC accessed per protocol with brisk blood return. CBC and CMP were drawn via PAC, resulted via POC and reviewed.. Positive blood return on IV line prior and after infusion. Medicatio n infused with 1000ml NS sidearm bag. Pt tolerated without incident. PAC flushed and deac cessed per protocol. 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 Refer to MAR and [...] | | 2018 | | | ,PhD [address] | | | | | | [place], [place] | | | | | | [address] | | | | | | [phone] | | | | | | | | +--------+ + + + + | 11/21/ | Office | Hematology & | Toni Mccrary, | | | 2018 | Visit | Oncology | PhD BARB [address] | | | | | | [place], [place] | | | | | | [address] | | | | | | [phone] | | | | | | | | +--------+ + + + + | 11/28/ | Clinical | | | | | 2018 | Support | | | | | | Staff | | | | +--------+ + + + + | 11/28/ | Office | Hematology & | Taz Mcneal, | | | 2018 | Visit | Oncology | [address] | | | | | | [address] | | | | | | [place], [place] | | | | | | [address] | | | | | | [phone] | | | | | | | | +--------+ + + + + | 11/28/ | Appointment | Hematology & | Onc, [address] | | | 2019 | | Oncology | [address] [place], | | | | | | [place] [address] | | +--------+ + + + + | 11/29/ | Office | Physical Therapy | Genna Villegas, PT | | | 2018 | Visit | | [address] | | | | | | [place], | | | | | | [place] [address] | | | | | | [phone] | | | | | | | [...] [address] | | | | | | [place], [place] | | | | | | [address] | | | | | | [phone] | | | | | | | | +--------+ + + + + | 12/12/ | Appointment | Hematology & | Onc, [address] | | | 2018 | | Oncology | [address] [place], | | | | | | [place] [address] | | +--------+ + + + + + +--------+ + + | Name | Priori | Associated Diagnoses | Order Schedule | | | ty | | | + +--------+ + + | CANCER AG GI ([id number]), SERUM | Routin | 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 | + +--------+ + + + | COMPLETE METABOLIC | Routin | 10/03/2018 | Pancreatic | | | PANEL - OLP | e | 2:26 PM | adenocarcinoma (HCC) | | | | | PDT | | | + +--------+ + + + | CMP, POC (BMP+LFT) | Routin | 10/03/2018 | Pancreatic | Results for this | | | e | 2:26 PM | adenocarcinoma (HCC) | procedure are in the | | | | PDT | | results section. | + +--------+ + + + in this encounter Results CBC+DIFF,POC (10/03/2018 2:30 PM) + + + + + | Component | Value | Ref Range | Performed At | + + + + + | WBC POC | 4.6 | 3.5 - 10.8 10*3/uL | [facility], | | | | | POINT OF CARE | | | | | TESTS | + + + + + | RBC POC | 3.40 (L) | 4.00 - 5.20 10*6/uL | [facility] | | | | | POINT OF CARE | | | | | TESTS | + + + + + | HGB POC | 9.4 (L) | 12.0 - 16.0 g/dL | [facility], | | | | | POINT OF CARE | | | | | TESTS | + + + + + | HCT POC | 29.6 (L) | 36.0 - 46.0 % | [facility] | | | | | POINT OF CARE | | | | | TESTS | + + + + + | MCV POC | 87.1 | 80.0 - 100.0 fL | [facility], | | | | | POINT OF CARE | | | | | TESTS | + + + + + | MCH POC | 27.6 | 27.0 - 34.0 pg | [facility] | | | | | POINT OF CARE | | | | | TESTS | + + + + + | MCHC POC | 31.8 (L) | 32.0 - 36.0 g/dL | [...] + + + | PLT POC | 149 (L) | 150 - 400 10*3/uL | [facility] | | | | | POINT OF CARE | | | | | TESTS | + + + + + | MPV POC | 8.7 (L) | 9.7 - 12.3 fL | [facility] | | | | | POINT OF CARE | | | | | TESTS | + + + + + | NEUTROPHIL% POC | 69.8 | 50.0 - 70.0 % | [facility], | | | | | POINT OF CARE | | | | | TESTS | + + + + + | LYMPH% POC | 12.8 (L) | 18 - 42 % | [facility] | | | | | POINT OF CARE | | | | | TESTS | + + + + + | MONO %, POC | 8.2 | 3.5 - 9.0 % | [facility] | | | | | POINT OF CARE | | | | | TESTS | + + + + + | EOS %, POC | 8.5 (H) | 1.0 - 3.0 % | [...] + + + | NEUTROPHIL# POC | 3.2 | 1.8 - 7.7 10*3/uL | [facility] [...] + + | MONO #, POC | 0.4 | 0.1 - 0.9 10*3/uL | [facility] | | | | | POINT OF CARE | | | | | TESTS | + + + + + | EOS #, POC | 0.4 | 0.0 - 0.5 10*3/uL | [facility] [...] + + | CBC COMMENT, POC | atypical lym | | [facility], | | [...] [facility], POINT | [address] | [place] [address] | | | OF CARE TESTS | | | | + + + + + CMP, POC (BMP+LFT) (10/03/2018 2:26 PM) + +---------+ + + | Component | Value | Ref Range | Performed At | + +---------+ + + | SODIUM, POC | 141 | 134 - 143 mmol/L | [facility] | | | | | POINT OF CARE | | | | | TESTS | + +---------+ + + | POTASSIUM, POC | 3.6 | 3.4 - 5.0 mmol/L | [facility] [...] +---------+ + + | CHLORIDE, POC | 99 | 97 - 108 mmol/L | [facility], | | | | | POINT OF CARE | | | | | TESTS | + +---------+ + + | GLUCOSE, POC | 158 (H) | 60 - 99 mg/dL | [facility] | | | | | POINT OF CARE | | | | | TESTS | + +---------+ + + | CALCIUM TOTAL, POC | 9.6 | 8.6 - 10.2 mg/dL | [facility] | | | | | POINT OF CARE | | | | | TESTS | + +---------+ + + | BUN, POC | 5 (L) | 6 - 20 mg/dL | [facility], | | | | | POINT OF CARE | | | | | TESTS | + +---------+ + + | CREATININE, POC | 0.8 | 0.6 - 1.1 mg/dL | [facility], | | | | | POINT OF CARE | | | | | TESTS | + +---------+ + + | ALK PHOS, CMP POC | 216 (H) | 41 - 109 U/L | [facility], | | | | | POINT OF CARE | | | | | TESTS | + +---------+ + + | ALT, CMP POC | 61 (H) | 0 - 60 U/L | [facility] | | | | | POINT OF CARE | | | | | TESTS | + +---------+ + + | AST, CMP POC | 26 | 0 - 41 U/L | [facility] [...] + + | ALBUMIN, CMP POC | 3.4 (L) | 3.5 - 4.7 g/dL | [facility] | | | | | POINT OF CARE | | | | | TESTS | + +---------+ + + | PROTEIN TOTAL, CMP | 6.6 | 6.4 - 8.2 g/dL | [facility] [...] + + | [facility]BARA OWEN | [address] [facility] | [place] [address] | | | OF CARE TESTS | [...] emulsion 130 mg 130 | | 9 15:13 | | | | | mg, intravenous, ONCE, 1 dose, | | PDT | | | | | 10/03/18 at 1445 | | | | | | + +--------+ +--------+------+------+ +---+---+ | | | +---+---+ + +-------+ +------+---+---+ | dexamethasone PF (DECADRON) | Given | | 8 mg | | | | injection 8 mg 8 mg, | | 9 15:20 | | | | | intravenous, ONCE, 1 dose, Wed | | PDT | | | | | 10/03/18 at 1445 | | | | | | + +-------+ +------+---+---+ +---+---+ | | | +---+---+ + +---------+ + +---------+---+ | gemcitabine 1,600 mg in NaCl | New Bag | | 1,600 mg | 584.21 | | | 0.9 % (NS) IV 1,600 mg (rounded | | 9 16:50 | | mL/hr | | | from 1,590 mg = 1,000 mg/m2 | | PDT | | | | | 1.59 m2 Treatment plan recorded | | | | | | | BSA), intravenous, Administer | | | | | | | over 30 Minutes, ONCE, 1 dose, | | | | | | | 10/03/18 at 1515, HIGH ALERT | | | | | [...] injection 200 mg 200 | | 9 16:03 | | | | | mg (rounded from 198.75 mg = 125 | | PDT | | | | | mg/m2 | | | | | | | 1.59 m2 Treatment plan recorded | | | | | | | BSA), intravenous, ONCE, 1 dose, | | | | | | | 10/03/18 at 1445 | | | | | | + +---------+ +--------+ +---+ +---+---+ | | | +---+---+ + +-------+ +---------+---+---+ | palonosetron HCl (ALOXI) | Given | | 0.25 mg | | | | injection 0.25 mg 0.25 mg, | | 9 15:17 | | | | | intravenous, ONCE, 1 dose, Wed | | PDT | | | | | 10/03/18 at 1445 | | | | | | + +-------+ +---------+---+---+ +---+---+ | | | +---+---+ + +---------+ + +---+---+ | sodium chloride 0.9 % (NS) IV | New Bag | | 1,000 mL | | | | infusion 1,000 mL, intravenous, | | 9 15:12 | | | | | ONCE, 1 dose, 10/03/18 at 1445 | | PDT | | | | + +---------+ + +---+---+ +---+---+ | | | +---+---+ in this encounter"
--- OUTSIDE RECORDS SUMMARY | ~2018-11-11 | XMS | Encounter Summary ---
Demographics + + + | Address | [address] | | | [place] [address] | + + + | Home Phone [...] | | | | | [place] [address] | | + + + + + Care Team Providers + +------+ + | Care Calender Let Off Operator Name | Role | Phone | + +------+ + | Piotr Plummer MD | PCP | | + +------+ + Encounter Details +--------+ + + + + | Date | Type | Department | Care Team | Description | +--------+ + + + + | 10/17/ | Documentati | Hematology | Toni Mccrary, | | | 2019 | on | Oncology Study [address] | ,PhD [address] | | | | | [address]ley | [place], [place] | | | | | Mailcode: CH7 | [address] | | | | | [facility] | [phone] | | | | | and [facility], 7th | | | | | | Floor [place], [place] | | | | | | [address] | | | | | | [phone] | | | +--------+ + + + [...] | 2018 | | | PhD BAR[address] | | | | | | [place], [place] | | | | | | [address] | | | | | | [phone] | | | | | | | | +--------+ + + + + | 11/21/ | Office | Hematology & | Toni Mccrary, | | | 2018 | Visit | Oncology | PhD [address] | | | | | | [place] [facility] [place] | | | | | | [address] | | | | | | [phone] | | | | | | | [...] [address] | | | | | | [place], [place] | | | | | | [address] | | | | | | [phone] | | | | | | | | +--------+ + + + + | 11/28/ | Appointment | Hematology & | Onc, Gen [address] | | | 2019 | | Oncology | [place], | | | | | | [place] [address] | | +--------+ + + + + | 11/29/ | Office | Physical Therapy | Genna Villegas, PT | | | 2019 | Visit | | [address] | | | | | | [place], | | | | | | [place] [address] | | | | | | [phone] | | | | | | | | +--------+ + + + + | 12/12/ | Clinical | | | | | 2019 | Support | | | | | | Staff | | | | +--------+ + + + + | 12/12/ | Office | Hematology & | Taz Mcneal, | | | 2018 | Visit | Oncology | [facility] [address] [facility] | | | | | | [address] | | | | | | [place] | | | | | | [address] | | | | | | [phone] | | | | | | | | +--------+ + + + + | 12/12/ | Appointment | Hematology & | [address] | | | 2018 | | Oncology | [place] | | | | | | [place] [address] | | +--------+ + + + + as of this encounter Visit Diagnoses Not on filein this encounter"
--- OUTSIDE RECORDS SUMMARY | ~2018-11-11 | XMS | Encounter Summary ---
Demographics + + + | Address | [address] | | | [place] [address] | + + + | Home Phone | | + + + | Preferred Language | Unknown | + + + | Marital Status | | + + + | Baptist Affiliation | NRP | + + + | Race | White | + + + | Ethnic Group | Not or | + + + Author + + + | Author | [facility] | + + + | Organization | [facility] | + + + | Address | Unknown | + + + | Phone | Unavailable | + + + Support + + + + + | Name | Relationship | Address | Phone | + + + + + | ELSA GOODE | ECON | [address] | | | | | [place] [address] | | + + + + + Care Team Providers + +------+ + | Care Sales Developer Name | Role | Phone | + +------+ + | Piotr Plummer MD | PCP | | + +------+ + Reason for Visit + + + | Reason | Comments | + + + | Social Work Notes | | + + + Encounter Details +--------+ + + + + | Date | Type | Department | Care Team | Description | +--------+ + + + + | 08/22/ | Documentati | Hematology/Medical | Work, Social | Social Work Notes | | 2019 | on | Oncology at [place] | | | | | | [facility] | | | | | | [address] | | | | | | Mailcode: [place] | | | | | | [facility] | | | | | | [facility]aling, [address] | | | | | | [place], [place] | | | | | | [address] | | | | | | [phone] | | | +--------+ + + + [...] | | | | | [place] | | | | | | [address] | | | | | | [phone] | | | | | | | | +--------+ + + + + | 11/21/ | Office | Hematology & | Toni Mccrary, | | | 2018 | Visit | Oncology | PhD [address] | | | | | | [place] | | | | | | [address] | | | | | | [phone] | | | | | | | [address] | | | | | | [place] | | | | | | [address] | | | | | | [phone] | | | | | | | | +--------+ + + + + | 11/28/ | Appointment | Hematology & | [address] | | | 2019 | | Oncology | [place], | | | | | | [place] [address] | | +--------+ + + + + | 11/29/ | Office | Physical Therapy | Genna Villegas PT | | | 2019 | Visit | | [address] | | | | | | [place], | | | | | | [place] [address] | | | | | | [phone] | | | | | | | | +--------+ + + + + | 12/12/ | Clinical | | | | | 2018 | Support | | | | | | Staff | | | | +--------+ + + + + | 12/12/ | Office | Hematology & | Taz Mcneal, | | | 2018 | Visit | Oncology | [place] [address] [facility] | | | | | | [address] | | | | | | [place] | | | | | | [address] | | | | | | [phone] | | | | | | | | +--------+ + + + + | 12/12/ | Appointment | Hematology & | [address] | | | 2019 | | Oncology | [place] | | | | | | [place] [address] | | +--------+ + + + + as of this encounter Visit Diagnoses Not on filein this encounter"
--- OUTSIDE RECORDS SUMMARY | ~2018-11-11 | XMS | Encounter Summary ---
Demographics + + + | Address | [address] | | | [place] [address] | + + + | Home Phone [...] + + + | Author | [facility] | + + + | Organization | [facility] | + + + | Address | Unknown | + + + | Phone | Unavailable | + + + Support + + + + + | Name | Relationship | Address | Phone | + + + + + | ELSA GOODE | ECON | [address] | | | | | [place] [address] | | + + + + + Care Team Providers + +------+ + | Care Neurology Teacher Name | Role | Phone | + +------+ + | Piotr Plummer MD | PCP | | + +------+ + Encounter Details +--------+ + + + + | Date | Type | Department | Care Team | Description | +--------+ + + + + | 09/03/ | Registered Dietetic Technician | Hematology/Medical | Toni Mccrary, | | | 2019 | | Oncology at [place] | ,PhD [address] | | | | | [facility] | [place], [place] | | | | | [address] | [address] | | | | | Mailcode: [place] | [phone] | | | | | for Health and | | | | | | Healing, [address] | | | | | | [place], [place] | | | | | | [address] | | | | | | [phone] | | | +--------+ + + + [...] | | | | | | [place], [place] | | | | | | [address] | | | | | | [phone] | | | | | | | | +--------+ + + + + | 11/21/ | Office | Hematology & | Toni Mccrary, | | | 2018 | Visit | Oncology | PhD [address]ery [address] | | | | | | [place], [place] | | | | | | [address] | | | | | | [phone] | | | | | | | [...] [address] | | | | | | [place], [place] | | | | | | [address] | | | | | | [phone] | | | | | | | | +--------+ + + + + | 11/28/ | Appointment | Hematology & | Onc, [address] | | | 2019 | | Oncology | [place], | | | | | | [place] [address] | | +--------+ + + + + | 11/29/ | Office | Physical Therapy | Genna Villegas, PT | | | 2019 | Visit | | [address] | | | | | | [place], | | | | | | [place] [address] | | | | | | [phone] | | | | | | | | +--------+ + + + + | 12/12/ | Clinical | | | | | 2019 | Support | | | | | | Staff | | | | +--------+ + + + + | 12/12/ | Office | Hematology & | Taz Mcneal, | | | 2018 | Visit | Oncology | [place] [address] [facility] | | | | | | [address] | | | | | | [place] | | | | | | [address] | | | | | | [phone] | | | | | | | | +--------+ + + + + | 12/12/ | Appointment | Hematology & | [address] | | | 2018 | | Oncology | [place] | | | | | | [place] [address] | | +--------+ + + + + as of this encounter Visit Diagnoses Not on filein this encounter"
--- OUTSIDE RECORDS SUMMARY | ~2018-11-11 | XMS | Encounter Summary ---
Demographics + + + | Address | [address] | | | [place] [address] | + + + | Home Phone [...] | | | | | [place] [address] | | + + + + + Care Team Providers + +------+ + | Care Drug Abuse Treatment Specialist Name | Role | Phone | [...] | Oncology at [facility] | [address] [place], | | | | | [address] | [place] [address] | | | | | Mailcode: [place] | | | | | | [facility] | | | | | | Healing, [address] | | | | | | [place], [place] | | | | | | [address] | | | | | | [phone] | | | +--------+ + + + [...] | 1 | 09/13/19 | | | [id number] | meals and 1 | capsule | [...] No acute distr ess 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 Refer to MAR and Onc [...] [place] | | | | | | [address] | | | | | | [phone] | | | | | | | | +--------+ + + + + | 11/21/ | Office | Hematology & | Toni Mccrary, | | | 2019 | Visit | Oncology | PhD [address] | | | | | | [place] | | | | | | [address] | | | | | | [phone] | | | | | | | | +--------+ + + + + | 11/28/ | Clinical | | | | | 2018 | Support | | | | | | Staff | | | | +--------+ + + + + | 11/28/ | Office | Hematology & | Taz Mcneal, | | | 2018 | Visit | Oncology | [address] [address] | | | | | | [address] | | | | | | [place] | | | | | | [address] | | | | | | [phone] | | | | | | | | +--------+ + + + + | 11/28/ | Appointment | Hematology & | Onc, [address] | | | 2019 | | Oncology | [place] | | | | | | [place] [address] | | +--------+ + + + + | 11/29/ | Office | Physical Therapy | Genna Villegas, PT | | | 2019 | Visit | | [address] | | | | | | [place], | | | | | | [place] [address] | | | | | | [phone] | | | | | | | [...] [address] | | | | | | [facility] [place] | | | | | | [address] | | | | | | [phone] | | | | | | | | +--------+ + + + + | 12/12/ | Appointment | Hematology & | [address] | | | 2018 | | Oncology | [place], | | | | | | [place] [address] | | +--------+ + + + + [...]
--- OUTSIDE RECORDS SUMMARY | ~2018-11-11 | XMS | Encounter Summary ---
Demographics + + + | Address | [address] | | | [place] [address] | + + + | Home Phone [...] | | | | | [place] [address] | | + + + + + Care Team Providers + +------+ + | Care Comb Setter Name | Role | Phone | + +------+ + | Piotr Plummer MD | PCP | | + +------+ + Encounter Details +--------+ + + + + | Date | Type | Department | Care Team | Description | +--------+ + + + + | 08/22/ | Hospital | Radiology/Imaging | Toni Mccrary, | | | 2019 | Encounter | Lab at [facility] [address] | ,PhD [address] | | | | | [place] Mailcode: | [place], [place] | | | | | [address] | [address] | | | | | [facility], | [phone] | | | | | [address] [place] [address], | | | | | | [place] [address] | | | | | | [phone] | | | +--------+ + + + [...] [place] | | | | | | [address] | | | | | | [phone] | | | | | | | | +--------+ + + + + | 11/21/ | Office | Hematology & | Toni Mccrary, | | | 2018 | Visit | Oncology | PhD [address] | | | | | | [place] | | | | | | [address] | | | | | | [phone] | | | | | | | [...] [place] | | | | | | [address] | | | | | | [phone] | | | | | | | | +--------+ + + + + | 11/28/ | Appointment | Hematology & | Onc, Gen [address] | | | 2019 | | Oncology | [place] | | | | | | [place] [address] | | +--------+ + + + + | 11/29/ | Office | Physical Therapy | Genna Villegas PT | | | 2019 | Visit | | [address] | | | | | | [place], | | | | | | [place] [address] | | | | | | [phone] | | | | | | | | +--------+ + + + + | 12/12/ | Clinical | | | | | 2019 | Support | | | | | | Staff | | | | +--------+ + + + + | 12/12/ | Office | Hematology & | Taz Mcneal, | | | 2018 | Visit | Oncology | [facility] [address] [facility] | | | | | | [address] | | | | | | [place] | | | | | | [address] | | | | | | [phone] | | | | | | | | +--------+ + + + + | 12/12/ | Appointment | Hematology & | [facility] [address] | | | 2019 | | Oncology | [place] | | | | | | [place] [address] | | +--------+ + + + + as of this encounter Procedures + +--------+ + + + | Procedure Name | Priori | Date/Time | Associated Diagnosis | Comments | | | ty | | | | + +--------+ + + + | X-RAY CHEST 2 VIEW | Routin | 08/22/2018 | Pancreatic | Results for this | | | e | 2:57 PM | adenocarcinoma (HCC) | procedure are in the | | | | PST | Liver metastases | results section. | | | | | (HCC) | | + +--------+ + + + in this encounter Results X-RAY CHEST 2 VIEW [...] Davis MD 08/22/2018 2:59 PM Preliminary: Felix Velazquez | | MD Ryan Dictation initiated: Felix Davis MD 08/22/2018 2:57 [...]
--- OUTSIDE RECORDS SUMMARY | ~2018-11-11 | XMS | Encounter Summary ---
Demographics + + + | Address | [address] | | | [place] [address] | + + + | Home Phone [...] | | | | | [place] [address] | | + + + + + Care Team Providers + +------+ + | Care Securities Trader Name | Role | Phone | + [...] | adenocarcino | [address] | [facility] | | | | | makeda ([facility]) | [facility] | Road | | | | | Procedures | Rd | Mailcode: | | | | | IR PORT | [place], [place] | [address] | | | | | PROCEDURE | [id number] | [place] | | | | | [place] INSERT | Phone: | Hospital | | | | | GAETANO CV | [phone] | [facility] | | | | | CATH,W SQ | Fax: | [place], [place] | | | | | PORT,>7 Y/O | [phone] | [address] | | | | | | | Phone: | | | | | | | [phone] | | | | | | | Fax: | | | | | | | [phone] | +--------+--------+ + + + + PROC - Dept/Practice Procedure (Routine) +--------+--------+ + + + + | Status | Reason | Specialty | Diagnoses / | Referred By | Referred To | | | | | Procedures | Contact | Contact | +--------+--------+ + + + + | Closed | | Interventiona | Diagnoses | Alise, | Napoleon Boggss | | | | l Radiology | Pancreatic | MD Martin | [address] | | | | | adenocarcino | [address] | [facility] | | | | | makeda ([facility]) | [facility] | Road | | | | | Procedures | Rd | Mailcode: | | | | | IR PORT | [place], [place] | [address] | | | | | PROCEDURE | [id number] | [place] | | | | | [place] INSERT | Phone: | Hospital | | | | | GAETANO CV | [phone] | [facility] | | | | | Zi RENEE SQ | Fax: | [place], [place] | | | | | PORT,>5 Y/O | [phone] | [address] | | | | | | | Phone: | | | | | | | [phone] | | | | | | | Fax: | | | | | | | [phone] | +--------+--------+ + + + + Reason for Visit AUTH/CERT +--------+--------+ + [...] | +--------+ + + + + | 08/28/ | Hospital | [address] | Maykel Santacruz MD | | | 2019 | Encounter | [facility] | [address] [facility] | | | | | [address] [place] [address] | [facility] | | | | | [place] [address] | [place], [place] | | | | | [phone] | [address] | | | | | | [phone] | | | | | | | [...] + + + | Blood Pressure | 111/65 | 08/28/2018 11:00 AM PST | + + + + | Pulse | 99 | 08/28/2018 11:00 AM PST | + + + + | Temperature | 36.6 C (97.9 F) | 08/28/2018 10:00 AM PST | + + + + | Respiratory Rate | 15 | 08/28/2018 11:00 AM PST | + + + + | Oxygen Saturation | 98% | 08/28/2018 10:15 AM PST | + + + + | Inhaled Oxygen | - | - | | Concentration | | | + + + + | Weight | 55.3 kg (122 lb) | 08/28/2018 6:45 AM PST | + + + + | Height | 160 cm (5' 3") | 08/28/2018 6:45 AM PST | + + + + | Body Mass Index | 21.61 | 08/28/2018 6:45 AM PST | + + + + in this encounter Discharge Instructions Jen Marie RN - 08/28/2018.Discharge Information Chest or Arm Port Call your doctor if you notice any unusual symptoms. Remember: you are under the influence of medicines. You must have someone else take you home, either by car or taxi. Don t drive , operate machinery or power tools. Don t drink any alcoholic beverages. Don t make any important decisions or sign legal papers and take it easy the rest of the day. Activity No exercising, lifting heavy objects, or strenuous activity for the next 7 days. You may re sume your regular activities, including driving, in 24 hours. No swimming for 14 days. Pain Management You may use over the counter medications such as acetaminophen (Tylenol) or ibuprofen (Advi l) for minor discomfort. Care of Your Port Your wound is held together by steristrips. No showers for the first two days. Starting on the third day you may take the dressing off and shower. Leave the paper strips in place and allow them to fall off on their own. No dressings are needed. If the port is accessed with a needle, do not change the dressing over the needle. You have dissolvable sutures and/or glue in your wound. There is no need to make an appoint ment to have them removed. Call Your Physician for Any of the Following Fever and chills Swelling or severe pain in the arm on the side of the port Bleeding, redness, drainage or swelling at or around the port You may call your physician or the Interventional Radiology Office at and as k to speak with a nurse or an Interventional Fellow. After 4 PM or on weekends contact the ranjit minaya data migration lead for your doctor, or call and ask to speak to the [facility] Radiology Fellow data migration lead. When the port is not in use, it needs to be flushed once a month by your physician or nurse . If your port needs to be accessed for blood work or infusions please co-ordinate with your home care provider or your physician. in this encounter Medications at Time of [...] layer | 30 g | 7 | 02/06/20 | | | lidocaine-prilocaine | to intact [...] + as of this encounter Progress Notes Varsha Avalos, MBBC - 08/28/2018 9:51 AM PSTINTERVENTIONAL RADIOLOGY BRIEF PROCEDURE NOTE DATE: 08/28/2018 9:51 AM PROCEDURE: RIJ chest port placement RIJ chest port removal PRE-PROCEDURE DIAGNOSIS: Non functioning chest port POST-PROCEDURE DIAGNOSIS: Same IR ATTENDING: Dr Santacruz IR FELLOW: Dr Avalos IR PA: ACCESS: RIJ MEDICATIONS: Fentanyl 150 mcg IV Versed 7 mg IV Cefazolin 2g COMPLICATION(S): None immediate ESTIMATED BLOOD LOSS: 5 cc FINDINGS: 1. Thrombus of the RIJ . Able to pass through the occlusion . Patent SVC 2. No pneumothorax Full dictated report forthcoming, which can be found under the imaging tab in Epic. Varsha TASH AvalosGRE[facility] Varsha Chasidyconstance, TASHJaime Varsha Avalos MBGRE[facility] - 08/28/2018 9:51 AM PSTINTERVENTIONAL RADIOLOGY POST SEDATION NOTE Maximum level of sedation achieved during the procedure: 2 Moderately sedated, easily arous ed with light tactile stimulation Current level of sedation: 0 Awake and alert BP 97/57 | Pulse 74 | Temp 36.9 C (98.4 F) | RR 17 | Ht 1.6 m (5' 3") | Wt 55.3 kg (122 lb) | SpO2 99% | BMI 21.61 kg/(m^2) Access site: RIJ The patient is recovered from moderate (conscious) sedation with an appropriate level of pa in control. VarshaLORY Dietrich, LORY UmañaVarsha nolasco MBGRE[facility] - 08/27/2018 9:17 PM PSTFormatting of this note may be different from the original. Interventional Radiology Outpatient Pre-Procedure Note Planned Procedure: RIJ Port removal. SL port placement - Retraction of chest port in kobe SVC. Unable to aspirate Outpatient IR Attending Physician: Assessment: 73 y.o. female with pancreatic cancer , and port placed by surgery on 08/10/2018 , now with problems aspirating the port . On imaging port is retracted in position No allergies Labs wnl Imaging reviewed meds reviewed Plan: Chest port removal. Chest port placement - Single lumen , not accessed HPI: As above Current Medications: No current facility-administered medications for this encounter. Current Outpatient Prescriptions Medication Sig acetaminophen 500 mg oral tablet Take 500 mg by mouth every six hours as needed. docusate sodium (COLACE) 100 mg oral capsule Take 1 capsule by mouth two times daily. ( Patient taking differently: Take 100 mg by mouth twice daily as needed. ) Fish Oil-[place]-3 Fatty Acids 340-1,000 mg oral capsule Take 1 capsule by mouth once alisha ly. gabapentin 300 mg oral capsule Take 1 capsule by mouth three times daily for 14 days. ibuprofen 200 mg oral tablet Take 400 mg by mouth every six hours as needed. lidocaine-prilocaine 2.5-2.5 % topical cream Apply a thick layer to intact skin and cov er with an occlusive dressing. loperamide 2 mg oral capsule Take 2 caps initially then 1 cap every 2 hours until diarr hea free for 12 hours as needed. LORazepam 1 mg oral tablet Take 0.5-1 tablets by mouth every six hours as needed (secon d line for nausea or for sleep). metoprolol succinate 25 mg oral tablet extended release 24 hr Take 1 tablet (25 mg) by mouth every morning and 2 tablets (50 mg) by mouth every evening multivitamin oral tablet Take 1 tablet by mouth once daily. nitroglycerin 400 mcg/spray translingual spray,non-aerosol Place under tongue. oxyCODONE (immediate release) 5 mg oral tablet Take 1-3 tablets by mouth every four trev rs as needed for severe pain. prochlorperazine 10 mg oral tablet Take 0.5-1 tablets by mouth every six hours as neede d for nausea/vomiting. Max dose: 40 mg/day traZODone 50 mg oral tablet Take 1 tablet by mouth at bedtime as needed Allergies: No Known Allergies Past Medical History: Past Medical History: Diagnosis Date Cataract cortical, senile, right CME (cystoid macular edema), left GERD (gastroesophageal reflux disease) Hypertension Irritable bowel syndrome Legionnaire's disease (HCC) 1996 Sleep apnea Tachycardia 2015 Tachycardia Surgical History: Past Surgical History Procedure Laterality Date Cataract extraction, with intraocular lens insertion Left 06/19/2017 Dr. Duran Tonsillectomy Arm surgery Insertion of right tunneled central venous catheter with port 08/10/2018 Laparoscopic liver biopsy 08/10/2018 Social History: Social History Social History Marital status: Spouse name: N/A Number of children: N/A Years of education: N/A Occupational History Not on file. Social History Main Topics Smoking status: Former Smoker Packs/day: 20.00 Years: 8.00 Types: Cigarettes Quit date: 1981 Smokeless tobacco: Never Used Alcohol use No Comment: occasionally Drug use: Yes Types: Smoke Comment: MJ for pain Sexual activity: Not on file Other Topics Concern Not on file Social History Narrative No narrative on file Labs: Lab Results Component Value Date WBC 11.2 08/22/2018 HB 11.5 08/22/2018 HCT 35.0 08/22/2018 PLT 335 08/22/2018 MCV 87.1 08/22/2018 RDW 37.8 08/22/2018 Lab Results Component Value Date NA 141 08/22/2018 K 4.5 08/22/2018 CL 101 08/22/2018 BICARB 30 08/22/2018 BUN 12 08/22/2018 CR 0.7 08/22/2018 GLU 161 08/22/2018 CA 9.9 08/22/2018 AST 28 08/22/2018 ALT 40 08/22/2018 AP 157 08/22/2018 TBILI 0.5 08/22/2018 TP 6.8 08/22/2018 ALB 3.3 08/22/2018 Lab Results Component Value Date APTT 30.3 08/22/2018 Lab Results Component Value Date INRPT 1.08 08/22/2018 Imaging: reviewed Varsha Avalos [facility] TASH CurielGRE[facility] PRE-SEDATION EVALUATION ADVERSE DRUG REACTIONS: No Known Allergies RED FLAGS: None PREMEDICATIONS NEEDED: cefazolin Metformin: No Anticoagulants: None Physical Examination: Ht 1.6 m (5' 3"), Wt 55.3 kg (122 lb), BP 104/67, Pulse 83, Temperature 36.9 C (98.4 F) , RR 12, SpO2 95%, BMI 21.61 kg/(m^2). Facility age limit for growth percentiles is 18 year s. GENERAL Body mass index is 21.61 kg/m. HEENT Airways clear HEART RRR LUNGS Clear to auscultation ABDOMEN Soft, NT/ND EXTREMITIES Full range of motion x 4 NEURO Awake and alert Planned access point(S): RIJ Current level of pain: No Planned level of sedation: Moderate P.O. status: NPO Airway History: Are you having breathing problems today? no Are you having chest pain or discomfort today? no Have you had a prior history of difficult intubation or ventilation? yes Do you have noisy breathing (stridor)? no Do you snore? no Do you have documented sleep apnea? no Airway Examination: normal airway ASA Status: 3. Sedation Assessment: I have reviewed Ms. Goode's history and conducted the physical examination as documented above. This patient is appropriate for moderate sedation. I have reviewed the Interventional Radiology outpatient consult/H&P dated 08/27/18, and the relevant changes are as follows: None Ms. Goode has provided written consent for sedation with this procedure. Sedation Plan: Procedure with moderate sedation. Juan David Zepeda MD - 08/27/2018 7:42 PM PSTFormatting of this note may be different from the or iginal. Interventional Radiology Outpatient Pre-Procedure Note Planned Procedure: Port removal, port replacement Outpatient IR Attending Physician: n/a Assessment: 73F with metastatic pancreatic adenocarcinoma, requiring a port for chemotherapy. She had o ne placed 08/10/2018 by Blue surgery concurrently with diagnostic laparoscopy and liver biops y. Unfortunately, the tip is currently in the SVC, and the port does not reliably aspirate. Plan: Removal of right sided port and placement of new port Chemotherapy appointment 08/28/2018 HPI: 73F with . On use, the patient notes that the port becomes intermittently blocked. CXR 2018 demonstrates the catheter tip high in the SVC. Current Medications: No current facility-administered medications for this encounter. Current Outpatient Prescriptions Medication Sig acetaminophen 500 mg oral tablet Take 500 mg by mouth every six hours as needed. docusate sodium (COLACE) 100 mg oral capsule Take 1 capsule by mouth two times daily. ( Patient taking differently: Take 100 mg by mouth twice daily as needed. ) Fish Oil-[place]-3 Fatty Acids 340-1,000 mg oral capsule Take 1 capsule by mouth once alisha ly. gabapentin 300 mg oral capsule Take 1 capsule by mouth three times daily for 14 days. ibuprofen 200 mg oral tablet Take 400 mg by mouth every six hours as needed. lidocaine-prilocaine 2.5-2.5 % topical cream Apply a thick layer to intact skin and cov er with an occlusive dressing. loperamide 2 mg oral capsule Take 2 caps initially then 1 cap every 2 hours until diarr hea free for 12 hours as needed. LORazepam 1 mg oral tablet Take 0.5-1 tablets by mouth every six hours as needed (secon d line for nausea or for sleep). metoprolol succinate 25 mg oral tablet extended release 24 hr Take 1 tablet (25 mg) by mouth every morning and 2 tablets (50 mg) by mouth every evening multivitamin oral tablet Take 1 tablet by mouth once daily. nitroglycerin 400 mcg/spray translingual spray,non-aerosol Place under tongue. oxyCODONE (immediate release) 5 mg oral tablet Take 1-3 tablets by mouth every four trev rs as needed for severe pain. prochlorperazine 10 mg oral tablet Take 0.5-1 tablets by mouth every six hours as neede d for nausea/vomiting. Max dose: 40 mg/day traZODone 50 mg oral tablet Take 1 tablet by mouth at bedtime as needed Allergies: No Known Allergies Past Medical History: Past Medical History: Diagnosis Date Cataract cortical, senile, right CME (cystoid macular edema), left GERD (gastroesophageal reflux disease) Hypertension Irritable bowel syndrome Legionnaire's disease (HCC) 1996 Sleep apnea Tachycardia 2016 Tachycardia Surgical History: Past Surgical History Procedure Laterality Date Cataract extraction, with intraocular lens insertion Left 06/19/2017 Dr. Duran Tonsillectomy Arm surgery Insertion of right tunneled central venous catheter with port 08/10/2018 Laparoscopic liver biopsy 08/10/2018 Social History: Social History Social History Marital status: Spouse name: N/A Number of children: N/A Years of education: N/A Occupational History Not on file. Social History Main Topics Smoking status: Former Smoker Packs/day: 20.00 Years: 8.00 Types: Cigarettes Quit date: 1981 Smokeless tobacco: Never Used Alcohol use No Comment: occasionally Drug use: Yes Types: Smoke Comment: MJ for pain Sexual activity: Not on file Other Topics Concern Not on file Social History Narrative No narrative on file Labs: Lab Results Component Value Date WBC 11.2 08/22/2018 HB 11.5 08/22/2018 HCT 35.0 08/22/2018 PLT 335 08/22/2018 MCV 87.1 08/22/2018 RDW 37.8 08/22/2018 Lab Results Component Value Date NA 141 08/22/2018 K 4.5 08/22/2018 CL 101 08/22/2018 BICARB 30 08/22/2018 BUN 12 08/22/2018 CR 0.7 08/22/2018 GLU 161 08/22/2018 CA 9.9 08/22/2018 AST 28 08/22/2018 ALT 40 08/22/2018 AP 157 08/22/2018 TBILI 0.5 08/22/2018 TP 6.8 08/22/2018 ALB 3.3 08/22/2018 Lab Results Component Value Date APTT 30.3 08/22/2018 Lab Results Component Value Date INRPT 1.08 08/22/2018 Imaging: CXR 08/22/2018 reviewed Juan David Zepeda MD in this encounter Plan of Treatment [...] [place] | | | | | | [address] | | | | | | [phone] | | | | | | | | +--------+ + + + + | 11/21/ | Office | Hematology & | Toni Mccrary, | | | 2019 | Visit | Oncology | PhD L[address]pez DAY | | | | | | [place] | | | | | | [address] | | | | | | [phone] | | | | | | | [...] [address] | | | | | | [place] | | | | | | [address] | | | | | | [phone] | | | | | | | | +--------+ + + + + | 11/28/ | Appointment | Hematology & | Onc, [address] | | | 2019 | | Oncology | [place] | | | | | | [place] [address] | | +--------+ + + + + | 11/29/ | Office | Physical Therapy | Genna Villegas PT | | | 2019 | Visit | | [address] | | | | | | [place], | | | | | | [place] [address] | | | | | | [phone] | | | | | | | [...] [address] | | | | | [facility] | | | | | | [address] | | | | | | [phone] | | | | | | | | +--------+ + + + + | 12/12/ | Appointment | Hematology & | Gen [address] | | | 2019 | | Oncology | [place] | | | | | | [place] [address] | | +--------+ + + + + as of this encounter Procedures + +--------+ + + + | Procedure Name | Priori | Date/Time | Associated Diagnosis | Comments | | | ty | | | | + +--------+ + + + | PROCEDURE NOTE | Routin | 08/28/2018 | | Results for this | | | e | 12:10 PM | | procedure are in the | | | | PST | | results section. | + +--------+ + + + | IR PORT PROCEDURE | Routin | 08/28/2018 | Pancreatic | Results for this | | | e | 9:48 AM | adenocarcinoma (HCC) | procedure are in the | | | | PST | | results section. | + +--------+ + + + in this encounter Results PROCEDURE NOTE (08/28/2018 12:10 PM)IR PORT PROCEDURE (08/28/2018 9:48 AM) + + + | Narrative | Performed At | + + + | PROCEDURE: Removal of right chest port with placement of new port | [facility] | | PRIMARY EMS HELICOPTER PILOT: Varsha Avalos MD ANGIOGRAPHY ATTENDING: | RADIOLOGY [...] tip of the indwelling Port-A-Cath. A 5 Luxembourger | | | dilator was inserted and [...] exchanged for an 8 | | | Luxembourger peel-away sheath. The new catheter was advanced [...] patient's oncologist, Toni Mccrary, | | | Sadia. He will manage the anticoagulation. I have personally | | | reviewed the images and, if necessary, edited the report. I agree with | | | the report as now presented. Final signature: Joselito Edwards | | 08/29/2018 6:01 PM Preliminary: Maykel Santacruz MD | | | Dictation initiated: Maykel Santacruz MD 08/29/2018 5:41 PM | | + + + + + | Procedure Note | + + | Service Account, Radiant Res In Interface - 08/29/2018 6:[address] [facility] PROCEDURE: | | Removal of right chest port with placement of new port PRIMARY EMS HELICOPTER PILOT: Varsha | | MD Robbie ANGIOGRAPHY ATTENDING: [...] tip of the indwelling Port-A-Cath. A 5 Luxembourger dilator was | | inserted and advanced [...] was | | exchanged for an 8 Luxembourger peel-away sheath. The new catheter was advanced [...] of pancreas, part unspecified | + + Admitting Diagnoses + + | Diagnosis | + + | Pancreatic adenocarcinoma | + + | Pancreatic adenocarcinoma (HCC) [C25.9] | + + Administered Medications + +--------+---------+------+------+------+ | Medication Order | MAR | Action | Dose | Rate | Site | | | Action | Date | | | | + +--------+---------+------+------+------+ + +---+ | acetaminophen (TYLENOL) tablet | | | 500-1,000 mg 500-1,000 mg, oral, | | | EVERY 4 HOURS NEEDED, 1 dose, | | | Starting 08/28/18 at 0953, | | | Until 08/28/18 at 1810, mild | | | pain | | + +---+ | | | + +---+ + +---------+ +-----+---+---+ | ceFAZolin IV 2 gram in dextrose | New Bag | | 2 g | | | | (RTU) 2 g, intravenous, | | 9 08:35 | | | | | INTRAPROCEDURE ONCE, 1 dose, | | PST | | | | | Starting 08/28/18 at 0639, | | | | | | | Until 08/28/18 at 0905 | | | | | | + +---------+ +-----+---+---+ +---+---+ | | | +---+---+ + +-------+ +--------+---+---+ | fentaNYL (SUBLIMAZE) injection | Given | | 25 mcg | | | | 25-100 mcg 25-100 mcg, | | 9 08:30 | | | | | intravenous, INTRAPROCEDURE PRN, | | PST | | | | | 20 doses, Starting 08/28/18 at | | | | | | | 0639, Until e 08/28/18 at 0958, | | | | | | | periprocedural pain management | | | | | | + +-------+ +--------+---+---+ +-------+ +--------+---+---+ | Given | | 25 mcg | | | | | 9 08:45 | | | | | | PST | | | | +-------+ +--------+---+---+ | Given | | 50 mcg | | | | | 9 08:55 | | | | | | PST | | | | +-------+ +--------+---+---+ + +---+ | | | + +---+ | fentaNYL (SUBLIMAZE) injection | | | 25-50 mcg 25-50 mcg, | | | intravenous, EVERY 1 HOUR | | | NEEDED, Starting 08/28/18 at | | | 0953, Until e 08/28/18 at 1810, | | | 1st line severe pain | | | post-procedure | | + +---+ | | | + +---+ + +-------+ +-------+---+---+ | heparin 100 unit/mL IV flush | Given | | 500 | | | | INTRAPROCEDURE PRN, Starting Tue | | 9 09:46 | Units | | | | 08/28/18 at 0946, Until | | PST | | | | | Discontinued | | | | | | + +-------+ +-------+---+---+ + +---+ | | | + +---+ | HYDROmorphone (DILAUDID) | | | injection 0.2-0.5 mg 0.2-0.5 mg, | | | intravenous, EVERY 1 HOUR | | | NEEDED, Starting 08/28/18 at | | | 0953, Until 08/28/18 at 1810, | | | 2nd line severe pain | | | post-procedure | | + +---+ | | | + +---+ + +-------+ +------+---+---+ | midazolam (PF) (VERSED) | Given | | 1 mg | | | | injection 1-5 mg 1-5 mg, | | 9 08:30 | | | | | intravenous, INTRAPROCEDURE PRN, | | PST | | | | | 20 doses, Starting 08/28/18 at | | | | | | | 0639, Until 08/28/18 at 0958, | | | | | | | periprocedural sedation | | | | | | + +-------+ +------+---+---+ +-------+ +------+---+---+ | Given | | 1 mg | | | | | 9 08:45 | | | | | | PST | | | | +-------+ +------+---+---+ | Given | | 2 mg | | | | | 9 08:55 | | | | | | PST | | | | +-------+ +------+---+---+ + +---+ | | | + +---+ | ondansetron (ZOFRAN) injection | | | 4 mg 4 mg, intravenous, EVERY 12 | | | HOURS NEEDED, Starting Tue | | | 08/28/18 at 0953, Until Tue | | | 08/28/18 at 1810, nausea/vomiting, | | | first line | | + +---+ | | | + +---+ | oxyCODONE (immediate release) | | | (ROXICODONE) tablet 5-15 mg 5-15 | | | mg, oral, EVERY 4 HOURS | | | NEEDED, Starting 08/28/18 at | | | 0953, Until 08/28/18 at 1810, | | | moderate pain post-procedure | | + +---+ | | | + +---+ | prochlorperazine (COMPAZINE) | | | injection 5-10 mg 5-10 mg, | | | intravenous, EVERY 6 HOURS | | | NEEDED, Starting 08/28/18 at | | | 0953, Until 08/28/18 at 1810, | | | nausea/vomiting, not responding | | | to ondansetron AND unable to take | | | oral prochlorperazine or rectal | | | promethazine | | + +---+ | | | + +---+ | prochlorperazine (COMPAZINE) | | | tablet 5-10 mg 5-10 mg, oral, | | | EVERY 6 HOURS NEEDED, Starting | | | 08/28/18 at 0953, Until Tue | | | 08/28/18 at 1810, nausea/vomiting, | | | second line | | + +---+ | | | + +---+ | promethazine (PHENERGAN) | | | suppository 25 mg 25 mg, rectal, | | | EVERY 12 HOURS NEEDED, | | | Starting 08/28/18 at 0953, | | | Until 08/28/18 at 1810, | | | nausea/vomiting not responding to | | | ondansetron and unable to take | | | oral prochlorperazine | | + +---+ | | | + +---+ in this encounter
--- OUTSIDE RECORDS SUMMARY | ~2018-11-11 | XMS | Encounter Summary ---
Demographics + + + | Address | [address] | | | [place] [address] | + + + | Home Phone [...] + + + | Author | [facility] | + + + | Organization | [facility] | + + + | Address | Unknown | + + + | Phone | Unavailable | + + + Support + + + + + | Name | Relationship | Address | Phone | + + + + + | ELSA GOODE | ECON | [address] | | | | | [place] [address] | | + + + + + [...] | | | | Mailcode: Center | [place], [place] | | | | | [facility] and | [address] | | | | | Healing, [facility] | | | | | | [place], [place] | | | | | | [address] | | | | | | [phone] | | | +--------+ + + + [...] | | | | | | [place], [place] | | | | | | [address] | | | | | | [phone] | | | | | | | | +--------+ + + + + | 11/21/ | Office | Hematology & | Toni Mccrary, | | | 2018 | Visit | Oncology | PhD [address] | | | | | | [place], [place] | | | | | | [address] | | | | | | [phone] | | | | | | | [...] [address] | | | | | | [place], [place] | | | | | | [address] | | | | | | [phone] | | | | | | | | +--------+ + + + + | 11/28/ | Appointment | Hematology & | Onc, [address] | | | 2018 | | Oncology | [place], | | | | | | [place] [address] | | +--------+ + + + + | 11/29/ | Office | Physical Therapy | Genna Villegas PT | | | 2018 | Visit | | [address] | | | | | | [place], | | | | | | [place] [address] | | | | | | [phone] | | | | | | | | +--------+ + + + + | 12/12/ | Clinical | | | | | 2019 | Support | | | | | | Staff | | | | +--------+ + + + + | 12/12/ | Office | Hematology & | Taz Mcneal, | | | 2018 | Visit | Oncology | [facility] [address] | | | | | | [address] | | | | | | [place] | | | | | | [address] | | | | | | [phone] | | | | | | | | +--------+ + + + + | 12/12/ | Appointment | Hematology & | Gen [address] | | | 2018 | | Oncology | [place] | | | | | | [place] [address] | | +--------+ + + + + as of this encounter Visit Diagnoses Not on filein this encounter"
--- OUTSIDE RECORDS SUMMARY | ~2018-11-11 | XMS | Encounter Summary ---
Demographics + + + | Address | [address] | | | [place] [address] | + + + | Home Phone | | + + + | Preferred Language | Unknown | + + + | Marital Status | | + + + | Jainism Affiliation | NRP | + + + [...] | | | | | [place] [address] | | + + + + + Care Team Providers + +------+ + | Care Transition Specialist Name | Role | Phone | [...] | +--------+ + + + + | 11/02/ | Telephone | Hematology/Medical | Toni Mccrary, | Scheduling | | 2019 | | [facility] [place] | ,PhD [address] | | | | | for Health & Healing | [place] [facility] [place] | | | | | [address] | [address] | | | | | Mailcode: [place] | [phone] | | | | | for Health and | | | | | | [place] | | | | | | [place], [place] | | | | | | [address] | | | | | | [phone] | | | +--------+ + + + [...] | | 2018 | | | MDPhD [address] | | | | | | [place] | | | | | | [address] | | | | | | [phone] | | | | | | | | +--------+ + + + + | 11/21/ | Office | Hematology & | Toni Mccrary, | | | 2018 | Visit | Oncology | PhD [address] | | | | | | [place] | | | | | | [address] | | | | | | [phone] | | | | | | | [...] [address] | | | | | | [place] | | | | | | [address] | | | | | | [phone] | | | | | | | | +--------+ + + + + | 11/28/ | Appointment | Hematology & | Gen Elizabeth [address] | | | 2019 | | Oncology | [place], | | | | | | [place] [address] | | +--------+ + + + + | 11/29/ | Office | Physical Therapy | Genna Villegas, PT | | | 2019 | Visit | | [address] | | | | | | [place], | | | | | | [place] [address] | | | | | | [phone] | | | | | | | [...] [place] | | | | | | [address] | | | | | | [phone] | | | | | | | | +--------+ + + + + | 12/12/ | Appointment | Hematology & | [address] | | | 2019 | | Oncology | [place] | | | | | | [place] [address] | | +--------+ + + + + as of this encounter Visit Diagnoses Not on filein this encounter"
--- OUTSIDE RECORDS SUMMARY | ~2018-11-11 | XMS | Encounter Summary ---
Demographics + + + | Address | [address] | | | [place] [address] | + + + | Home Phone | | + + + | Preferred Language | Unknown | + + + | Marital Status | | + + + | Nondenominational Affiliation | NRP | + + + [...] | | | | | [place] [address] | | + + + + + Care Team Providers + +------+ + | Care Electrostatic Painter Name | Role | Phone | + [...] | 2019 | on | [facility]cology at [place] | ,PhD [address] | (gemcitabine, | | | | for Health & Healing | Ave [place], [place] | Abraxane) | | | | [address] | [address] | | | | | Mailcode: [place] | [phone] | | | | | for Health and | | | | | | Healing, [address] | | | | | | [place], [place] | | | | | | [address] | | | | | | [phone] | | | +--------+ + + + [...] [place] | | | | | | [address] | | | | | | [phone] | | | | | | | | +--------+ + + + + | 11/21/ | Office | Hematology & | Toni Mccrary, | | | 2018 | Visit | Oncology | PhD [address] | | | | | | [place] | | | | | | [address] | | | | | | [phone] | | | | | | | [...] [address] | | | | | | [place] | | | | | | [address] | | | | | | [phone] | | | | | | | | +--------+ + + + + | 11/28/ | Appointment | Hematology & | Gen [address] | | | 2019 | | Oncology | [place] | | | | | | [place] [address] | | +--------+ + + + + | 11/29/ | Office | Physical Therapy | Genna Villegas PT | | | 2019 | Visit | | [address] | | | | | | [place], | | | | | | [place] [address] | | | | | | [phone] | | | | | | | | +--------+ + + + + | 12/12/ | Clinical | | | | | 2018 | Support | | | | | | Staff | | | | +--------+ + + + + | 12/12/ | Office | Hematology & | Taz Mcneal, | | | 2018 | Visit | Oncology | [facility] [address] | | | | | | [address] | | | | | | [place] | | | | | | [address] | | | | | | [phone] | | | | | | | | +--------+ + + + + | 12/12/ | Appointment | Hematology & | Onc, [address] | | | 2019 | | Oncology | [place] | | | | | | [place] [address] | | +--------+ + + + + as of this encounter Visit Diagnoses Not on filein this encounter"
--- OUTSIDE RECORDS SUMMARY | ~2018-11-11 | XMS | Encounter Summary ---
Demographics + + + | Address | [address] | | | [place] [address] | + + + | Home Phone | | + + + | Preferred Language | Unknown | + + + | Marital Status | | + + + | Yarsanism Affiliation | NRP | + + + | Race | White | + + + | Ethnic Group | Not or | + + + Author + + + | Author | [facility] | + + + | Organization | [facility] | + + + | Address | Unknown | + + + | Phone | Unavailable | + + + Support + + + + + | Name | Relationship | Address | Phone | + + + + + | ELSA GOODE | ECON | [address] | | | | | [place] [address] | | + + + + + Care Team Providers + +------+ + | Care Supervisor Beam Department Name | Role | Phone | + +------+ + | Piotr Plummer MD | PCP | | + +------+ + Encounter Details +--------+ + + + + | Date | Type | Department | Care Team | Description | +--------+ + + + + | 10/30/ | Clinical Resource Manager | Hematology/Medical | Toni Mccrary, | | | 2019 | | [facility] at [place] | ,PhD [address] | | | | | for Health & Healing | [place], [place] | | | | | [address] [facility] | [address] | | | | | Mailcode: [place] | [phone] | | | | | for Health and | | | | | | Healing, [address] | | | | | | [place], [place] | | | | | | [address] | | | | | | [phone] | | | +--------+ + + + [...] | | | | | | [place], [place] | | | | | | [address] | | | | | | [phone] | | | | | | | | +--------+ + + + + | 11/21/ | Office | Hematology & | Toni Mccrary, | | | 2018 | Visit | Oncology | PhD [address] | | | | | | [place], [place] | | | | | | [address] | | | | | | [phone] | | | | | | | [...] Rd | | | | | | [place], [place] | | | | | | [address] | | | | | | [phone] | | | | | | | | +--------+ + + + + | 11/28/ | Appointment | Hematology & | Onc, [address] | | | 2019 | | Oncology | [place], | | | | | | [place] [address] | | +--------+ + + + + | 11/29/ | Office | Physical Therapy | Genna Villegas, PT | | | 2019 | Visit | | [address] | | | | | | [place], | | | | | | [place] [address] | | | | | | [phone] | | | | | | | | +--------+ + + + + | 12/12/ | Clinical | | | | | 2019 | Support | | | | | | Staff | | | | +--------+ + + + + | 12/12/ | Office | Hematology & | Taz Mcneal, | | | 2018 | Visit | Oncology | [facility] [address] [facility] | | | | | | [address] | | | | | | [place] | | | | | | [address] | | | | | | [phone] | | | | | | | | +--------+ + + + + | 12/12/ | Appointment | Hematology & | [address] | | | 2018 | | Oncology | [place] | | | | | | [place] [address] | | +--------+ + + + + as of this encounter Visit Diagnoses Not on filein this encounter"
--- OUTSIDE RECORDS SUMMARY | ~2018-11-11 | XMS | Encounter Summary ---
Demographics + + + | Address | [address] | | | [place] [address] | + + + | Home Phone [...] | | | | | [place] [address] | | + + + + + Care Team Providers + +------+ + | Care Supervisor Customer Services Name | Role | Phone | + +------+ + | Piotr Plummer MD | PCP | | + +------+ + Reason for Referral Diagnostic Testing (Urgent) + +--------+ + + + + | Status | Reason | Specialty | Diagnoses / | Referred By | Referred To | | | | | Procedures | Contact | Contact | + +--------+ + + + + | New Request | | Radiology | Diagnoses | Hermann, | | | | | | Right upper | Toni, | | | | | | quadrant | ,PhD 8653 | | | | | | abdominal | [address] | | | | | | pain | [place], | | | | | | Continuous | [place] | | | | | | severe | [address] | | | | | | abdominal | Phone: | | | | | | pain | [phone] | | | | | | Pancreatic | Fax: | | | | | | adenocarcino | [phone] | | | | | | ma (HCC) | | | | | | | Liver | | | | | | | metastases | | | | | | | (HCC) | | | | | | | Procedures | | | | | | | CT ABDOMEN | | | | | | | AND PELVIS W | | | | | | | IV CONTRAST | | | + +--------+ + + + + Reason for Visit + + + | Reason | Comments | + + + | Follow-up visit | | + + + AUTH/CERT +--------+--------+ + + + + | [...] Description | +--------+---------+ + + + | 08/13/ | Office | Hematology/Medical | Toni Mccrary, | Liver metastases | | 2019 | Visit | [facility] at [facility] | ,PhD [address] | (HCC) (Primary Dx); | | | | for Health & Healing | [address] [place], [place] | Right upper quadrant | | | | [address] | [address] | abdominal pain; | | | | Mailcode: [facility] | [phone] | Continuous severe | | | | for Health and | | abdominal pain; | | | | Healing, [address] | | Pancreatic | | | | [place], [place] | | adenocarcinoma (HCC) | | | | [address] | | | | | | [phone] | | | +--------+---------+ + + + [...] + + + | Blood Pressure | 147/72 | 08/13/2018 10:11 AM PST | + + + + | Pulse | 115 | 08/13/2018 10:11 AM PST | + + + + | Temperature | 37.6 C (99.7 F) | 08/13/2018 10:11 AM PST | + + + + | Respiratory Rate | 18 | 08/13/2018 10:11 AM PST | + + + + | Oxygen Saturation | 96% | 08/13/2018 10:11 AM PST | + + + + | Inhaled Oxygen | - | - | | Concentration | | | + + + + | Weight | 57.2 kg (126 lb) | 08/13/2018 10:11 AM PST | + + + + | Height | - | - | + + + + | Body Mass Index | 22.32 | 08/13/2018 10:11 AM PST | + + + + in this encounter Progress Notes Kellie Ruby, JAY - 08/13/2018 10:00 AM PSTFormatting of this note may be different from guillermina posadas original. Elaine Goode is a 72 y.o. Female newly diagnosed metastatic pancreatic adenocarcinoma. Oncology history: Several month history of abdominal discomfort, bloating, early satiety. Denies weight loss . Denies stearrhea. June 2018: CT scan demonstrated pancreatic head mass with liver metastases. 07/20/18: Endoscopic ultrasound with FNA positive for adenocarcinoma consistent with pancreat ic primary. Interim history: 08/10/18: port placement and diagnostic laparoscopy with liver biopsy. Flor kaye notes severe RUQ pain over the weekend uncontrolled with round the clock oxycodone. Elizabeth n worsened with inspiration and lying flat. Radiates to R shoulder. Unable to sleep. Poor po intake due to pain. Review of systems: Denies nausea vomiting. Denies jaundice. The remainder of her complete 12 point review of systems is negative except as above. I reviewed the entire the patient completed return visit health update and review of system s as documented in the EMR. BP 147/72 | Pulse 115 | Temp (Src) 37.6 C (99.7 F) (Oral) | RR 18 | Wt 57.2 kg (126 lb) | SpO2 96% | BMI 22.32 kg/(m^2) General: Active distress due to RUQ pain HEENT: non-icteric, PERRLA/EOMI, oropharnyx clear NECK: supple LN: none appreciated LUNGS: clear. Port site intact. CV: tachycardia ABD: tender to palpation RUQ. Lap port site intact with ecchymosis. No HSM. EXT: no CCE NEURO: intact SKIN: non-icteric PSYCH: in pain Lab Results Component Value Date CA199 6,831.7 07/24/2018 "Diagnostic Laparoscopy At this point, having included the clean portion of the operation, attention was turned to the abdominal portion. Pneumoperitoneum of 15 mmHg pressure was established via Veress needl e technique at the umbilicus. A 5 mm port was placed here. On initial laparoscopy, we found no evidence of trauma related to our Veress needle access and, after this was done, we place d a 12 mm port superior and just to the midline with a 5 mm additional port in the right abd omen, all under direct vision with local anesthetic. With these ports in place, we then did a diagnostic laparoscopy of the visible abdomen and found no peritoneal disease. There was a 1 cm lesion medially at the junction of segment 2/3 by the falciform and a larger tumor by segment 8. There was a small diaphragmatic bleeding by the segment 8 tumor, which appeared t o be from when the tumor came away from the diaphragm on insufflation. This was controlled w ith brief cautery. Both tumors were removed with the Harmonic scalpel. Hemostasis was achieved with the hook c autery. The larger lesion was removed via an endocatch bag. All ports were removed under dir ect vision. Additional local was infused in all incisions. A 0-vicryl was used to close the 12 mm port fascia. All incisions were closed using 4-0 Biosyn and then sealed using tissue a dhesive." PLAN: Metastatic pancreatic adenocarcinoma. We were planning to consent and enroll her on t he first-line gemcitabine/Abraxane plus minus BBI 608. (Morpheus trial is closed for fro ntline combination immunotherapeutic arm). --severe pain today in clinic post-laporascopy. Concern regarding post-op hepatic hematoma. --Discussed with Dr. Carrero who will send his team down for urgent evaluation in clinic a nd possible admission to surgery for pain control and further diagnostic work-up and monitor ing. --RTC after acute surgical issues resolved. in this encounter Plan of Treatment +--------+ [...] | | | | | | [place] | | | | | | [address] | | | | | | [phone] | | | | | | | | +--------+ + + + + | 11/21/ | Office | Hematology & | Toni Mccrary, | | | 2018 | Visit | Oncology | MDPhD [address] | | | | | | [place] | | | | | | [address] | | | | | | [phone] | | | | | | | [...] Rd | | | | | | [place], [place] | | | | | | [address] | | | | | | [phone] | | | | | | | | +--------+ + + + + | 11/28/ | Appointment | Hematology & | Gen Elizabeth [address] | | | 2019 | | Oncology | [place], | | | | | | [place] [address] | | +--------+ + + + + | 11/29/ | Office | Physical Therapy | Genna Villegas PT | | | 2019 | Visit | | [address] | | | | | | [place], | | | | | | [place] [address] | | | | | | [phone] | | | | | | | | +--------+ + + + + | 12/12/ | Clinical | | | | | 2018 | Support | | | | | | Staff | | | | +--------+ + + + + | 12/12/ | Office | Hematology & | Taz Mcneal, | | | 2018 | Visit | Oncology | OLY[facility] [address] [facility] | | | | | | [address] | | | | | | [place] | | | | | | [address] | | | | | | [phone] | | | | | | | | +--------+ + + + + | 12/12/ | Appointment | Hematology & | Gen Elizabeth [address] | | | 2019 | | Oncology | [place] | | | | | | [place] [address] | | +--------+ + + + + as of this encounter Procedures + +--------+ + + + | Procedure Name | Priori | Date/Time | Associated Diagnosis | Comments | | | ty | | | | + +--------+ + + + | ONCOLOGY PATHWAYS | Routin | 08/15/2018 | | Results for this | | TREATMENT DECISION | e | 12:00 AM | | procedure are in the | | | | PST | | results section. | + +--------+ + + + in this encounter Results ONCOLOGY PATHWAYS TREATMENT DECISION (08/15/2018) + + + + + | Component | Value | Ref Range | Performed At | + + + + + | ONCOLOGY PATHWAYS | START ON PATHWAY REGIMEN | | VIA ONCOLOGY | | TREATMENT PLAN | - Pancreatic - PANOS51: | | PATHWAYS | | REGIMEN | Nab-Paclitaxel | | | | | (Abraxane(R)) 125 mg/m2 | | | | | D1, 8, 15 + Gemcitabine | | | | | 1,000 mg/m2 D1, 8, 15 | | | | | q28 Days Until | | | | | Progression or Toxicity | | | + + + + + | ONCOLOGY PATHWAYS | START ON PATHWAY REGIMEN | | VIA ONCOLOGY | | TREATMENT DECISION | - Pancreatic PANOS51: | | PATHWAYS | | DETAILS | Nab-Paclitaxel | | | | | (Abraxane(R)) 125 mg/m2 | | | | | D1, 8, 15 + Gemcitabine | | | | | 1,000 mg/m2 D1, 8, 15 | | | | | q28 Days Until | | | | | Progression or Toxicity | | | | | A cycle is every 28 | | | | | days: Nab-paclita | | | | | xel (protein bound) | | | | | (Abraxane(R)) 125 mg/m2 | | | | | in NS to a concentration | | | | | of 5 mg/mL given IV | | | | | over 30 mins days 1, 8, | | | | | and 15 followed | | | | | by Gemcitabine | | | | | (Gemzar(R)) 1000 mg/m2 | | | | | in 250 mL NS IV over 30 | | | | | minutes days 1, 8, and | | | | | 15. Addit | | | | | ional Orders: Hold | | | | | therapy and notify | | | | | physician if ANC < 1500. | | | | | Always confirm | | | | | dose/schedule in your | | | | | pharmacy ordering | | | | | system Patient | | | | | Characteristics:Adenocar | | | | | cinoma, Metastatic | | | | | Disease, First Line, PS | | | | | ? 2Histology: | | | | | AdenocarcinomaCurrent | | | | | evidence of distant | | | | | metastases<= YesAJCC T | | | | | Category: T4AJCC N | | | | | Category: N1AJCC M | | | | | Category: M1AJCC 8 Stage | | | | | Grouping: IVLine of | | | | | Therapy: First | | | | | LineIntent of | | | | | Therapy:Non-Curative / | | | | | Palliative Intent, | | | | | Discussed with Patient | | | + + + + + | ONCOLOGY PATHWAYS | PANOS51 | | VIA ONCOLOGY | | TREATMENT DECISION | | | PATHWAYS | + + + + + + +---------+ + + | Performing | Address | City/State/Zipcode | Phone Number | | Organization | | | | + +---------+ + + | [facility] | | | | | [facility] | | | | + +---------+ + + CT ABDOMEN AND PELVIS W IV CONTRAST (08/13/2018 1:22 PM) + + + | Narrative | Performed At | + + + | EXAM: CT of the abdomen and pelvis WITH intravenous contrast. | [facility] | | HISTORY: pain s/p lap liver biopsy with pancreatic cancer r/o bleed - | RADIOLOGY VOICE | | Female patient (72 years old) status post laparoscopic liver biopsy on | RECOGNITION 2 | | 08/10/2018. COMPARISON: CT abdomen pelvis from outside institution | | | 07/12/2018. Chest CT 07/24/2018. TECHNIQUE: CT of the abdomen | | | and pelvis with non-ionic iodinated intravenous contrast. Coronal and | | | sagittal reformats were generated and reviewed. FINDINGS: LOWER | | | THORAX: Small right pleural effusion with associated atelectasis is | | | new from 07/12/2018. Nodular 6 mm diameter subpleural opacity in the | | | lateral right lung base (axial 12) corresponds to a 6 mm nodule seen | | | on 07/24/2018. LIVER: Numerous ill-defined hepatic hypodensities are | | | consistent with metastases from patient's known pancreatic | | | malignancy. For example: - 4.5 x 4.2 cm segment 5/6 lesion (axial | | | 55), previously measured 2.7 x 3.7 cm. - 2.0 x 1.9 cm segment 8 | | | lesion (axial 25), previously measured 1.5 x 1.3 cm. Postsurgical | | | sequela along the periphery of the liver in segment 8 and in segment 3 | | | are consistent with biopsy sites, each with an associated collection | | | of fluid and gas. A subcapsular fluid collection along the | | | inferolateral margin of the segment 8 resection site attenuates | | | approximately 20 Hounsfield units may represent fluid such as bile, | | | blood or a combination of these and measures up to 5.2 x 1.6 cm (axial | | | 44). BILIARY: No intrahepatic biliary ductal dilatation. The | | | gallbladder is mildly dilated, measuring up to 5.0 cm diameter. The | | | common duct is dilated up to 8 mm to the level of the pancreatic head | | | mass PANCREAS: A large pancreatic head/neck mass measures | | | approximately 3.8 x 3.6 cm (axial 63), previously 3.0 x 2.7 cm. The | | | main pancreatic duct is dilated within the neck, body and tail, | | | measuring up to 6 mm diameter. SPLEEN: Indeterminate hypodensity | | | along the margin of the spleen appears stable from 07/12/2018. | | | ADRENALS: Unremarkable. KIDNEYS/URETERS: Several small renal cysts | | | are present. No hydronephrosis. PELVIC ORGANS/BLADDER: Unremarkable. | | | GI TRACT: No abnormally dilated loops of bowel. Normal appearance | | | of the appendix. Moderate stool burden. PERITONEUM: Multiple locules | | | of gas along the liver and within the anti--dependent portion of the | | | peritoneum are likely postoperative. No free air. LYMPH NODES: No | | | lymphadenopathy. VESSELS: Mild mass effect from the patient's | | | pancreatic mass along the superior aspect of the superior mesenteric | | | vein. The main portal and splenic veins are patent. BONES AND SOFT | | | TISSUES: A convex left lumbar scoliosis. Right femoral head presumed | | | bone island. No acute abnormality. IMPRESSION: Since | | | 07/12/2018, interval increase in size of primary pancreatic head | | | lesion, with increased size of hepatic metastases. A pulmonary | | | nodule is incidentally visualized, indeterminate but suspicious for | | | metastatic disease. Sequela of recent hepatic wedge resections. A | | | subcapsular collection in contiguity with the segment 8 resection site | | | may represent a postoperative biloma or hematoma. These results | | | were discussed with the hand frame surgical elastic knitter on 08/13/2018 at | | | approximately 1:45 PM by Sacha Eastman DO. I have personally | | | reviewed the images and, if necessary, edited the report. I agree with | | | the report as now presented. Final signature: Felix Almaguer | | | 08/13/2018 5:07 PM Preliminary: Sacha Eastman MD 08/13/2018 | | | 2:41 PM Dictation initiated: Sacha Eastman MD 08/13/2018 1:36 PM | | + + + + + | Procedure Note | + + | Service Account, Radiant Res In Interface - 08/13/2018 5:08 PM PST EXAM: CT of the | | abdomen and pelvis WITH intravenous contrast. HISTORY: pain s/p lap liver biopsy with | | pancreatic cancer r/o bleed - Female patient (72 years old) status post laparoscopic | | liver biopsy on 08/10/2018. COMPARISON: CT abdomen pelvis from outside institution | | 07/12/2018. Chest CT 07/24/2018. TECHNIQUE: CT of the abdomen and pelvis with non-ionic | | iodinated intravenous contrast. Coronal and sagittal reformats were generated and | | reviewed. FINDINGS:LOWER THORAX: Small right pleural effusion with associated | | atelectasis is new from 07/12/2018. Nodular 6 mm diameter subpleural opacity in the | | lateral right lung base (axial 12) corresponds to a 6 mm nodule seen on 07/24/2018. LIVER: | | Numerous ill-defined hepatic hypodensities are consistent with metastases from | | patient's known pancreatic malignancy. For example: - 4.5 x 4.2 cm segment 5/6 lesion | | (axial 55), previously measured 2.7 x 3.7 cm.- 2.0 x 1.9 cm segment 8 lesion (axial 25), | | previously measured 1.5 x 1.3 cm.Postsurgical sequela along the periphery of the liver | | in segment 8 and in segment 3 are consistent with biopsy sites, each with an associated | | collection of fluid and gas.A subcapsular fluid collection along the inferolateral | | margin of the segment 8 resection site attenuates approximately 20 Hounsfield units may | | represent fluid such as bile, blood or a combination of these and measures up to 5.2 x | | 1.6 cm (axial 44). BILIARY: No intrahepatic biliary ductal dilatation. The gallbladder | | is mildly dilated, measuring up to 5.0 cm diameter. The common duct is dilated up to 8 | | mm to the level of the pancreatic head mass PANCREAS: A large pancreatic head/neck mass | | measures approximately 3.8 x 3.6 cm (axial 63), previously 3.0 x 2.7 cm. The main | | pancreatic duct is dilated within the neck, body and tail, measuring up to 6 mm | | diameter. SPLEEN: Indeterminate hypodensity along the margin of the spleen appears | | stable from 07/12/2018.ADRENALS: Unremarkable.KIDNEYS/URETERS: Several small renal cysts | | are present. No hydronephrosis.PELVIC ORGANS/BLADDER: Unremarkable. GI TRACT: No | | abnormally dilated loops of bowel. Normal appearance of the appendix. Moderate stool | | burden.PERITONEUM: Multiple locules of gas along the liver and within the | | anti--dependent portion of the peritoneum are likely postoperative. No free air. LYMPH | | NODES: No lymphadenopathy.VESSELS: Mild mass effect from the patient's pancreatic mass | | along the superior aspect of the superior mesenteric vein. The main portal and splenic | | veins are patent. BONES AND SOFT TISSUES: A convex left lumbar scoliosis. Right femoral | | head presumed bone island. No acute abnormality. IMPRESSION: Since 07/12/2018, | | interval increase in size of primary pancreatic head lesion, with increased size of | | hepatic metastases. A pulmonary nodule is incidentally visualized, indeterminate but | | suspicious for metastatic disease. Sequela of recent hepatic wedge resections. A | | subcapsular collection in contiguity with the segment 8 resection site may represent a | | postoperative biloma or hematoma. These results were discussed with the surgical | | resident on 08/13/2018 at approximately 1:45 PM by Sacha Eastman DO. I have personally | | reviewed the images and, if necessary, edited the report. I agree with the report as now | | presented. Final signature: Felix Almaguer MD 08/13/2018 5:07 PM Preliminary: Sacha | | MD Jaren 08/13/2018 2:41 PM Dictation initiated: Sacha Eastman MD 08/13/2018 1:36 PM | |Sequela of recent hepatic wedge resections. A subcapsular collection in contiguity with the segment 8 resection site may represent a postoperative biloma or hematoma. | | | |These results were discussed with the hand frame surgical elastic knitter on 08/13/2018 at approximately 1:45 PM by Sacha Eastman DO. | | | |I have personally reviewed the images and, if necessary, edited the report. I agree with e report as now presented. | | | |Final signature: Felix Almaguer MD 08/13/2018 5:07 PM | |Preliminary: Sacha Eastman MD 08/13/2018 2:41 PM | |Dictation initiated: Sacha Eastman MD 08/13/2018 1:36 PM | + + + +---------+ + + | Performing | Address | City/State/Zipcode | Phone Number | | Organization | | | | + +---------+ + + | [facility] | | | | | VOICE RECOGNITION 2 | | | | + +---------+ + + in this encounter Visit Diagnoses + + | Diagnosis | + + | Liver metastases (HCC) - Primary | + + | Secondary malignant neoplasm of liver | + + | Right upper quadrant abdominal pain | + + | Abdominal pain, right upper quadrant | + + | Continuous severe abdominal pain | + + | Pancreatic adenocarcinoma (HCC) | + + | Malignant neoplasm of pancreas, part unspecified | + +
--- OUTSIDE RECORDS SUMMARY | ~2018-11-11 | XMS | Encounter Summary ---
Demographics + + + | Address | [address] | | | [place] [address] | + + + | Home Phone [...] [address] | | | | | [place] [address] | | + + + + + Care Team Providers + +------+ + | Care Finishing Lab Technician Name | Role | Phone | [...] | | 2019 | | [facility] [place] | ,PhD [address] | | | | | for Health & Healing | [address] [facility] [place] | | | | | [address] | [address] | | | | | Mailcode: [place] | [phone] | | | | | for Health and | | | | | | Healing, [address] | | | | | | [place], [place] | | | | | | [address] | | | | | | [phone] | | | +--------+--------+ + + + [...] | | | | | | [place], [place] | | | | | | [address] | | | | | | [phone] | | | | | | | | +--------+ + + + + | 11/21/ | Office | Hematology & | Toni Mccrary, | | | 2018 | Visit | Oncology | MDPhD [address] | | | | | | [place] [facility] [place] | | | | | | [address] | | | | | | [phone] | | | | | | | [...] | | | | | | [place], [place] | | | | | | [address] | | | | | | [phone] | | | | | | | | +--------+ + + + + | 11/28/ | Appointment | Hematology & | [facility] [address] | | | 2019 | | Oncology | [place] | | | | | | [place] [address] | | +--------+ + + + + | 11/29/ | Office | Physical Therapy | Genna Villegas, PT | | | 2019 | Visit | | [address] | | | | | | [place], | | | | | | [place] [address] | | | | | | [phone] | | | | | | | [...] [place] | | | | | | [address] | | | | | | [phone] | | | | | | | | +--------+ + + + + | 12/12/ | Appointment | Hematology & | [address] | | | 2019 | | Oncology | [place] | | | | | | [place] [address] | | +--------+ + + + + [...]
--- OUTSIDE RECORDS SUMMARY | ~2018-11-11 | XMS | Encounter Summary ---
Demographics + + + | Address | [address] | | | [place] [address] | + + + | Home Phone [...] + + + | Author | [facility] | + + + | Organization | [facility] | + + + | Address | Unknown | + + + | Phone | Unavailable | + + + Support + + + + + | Name | Relationship | Address | Phone | + + + + + | ELSA GOODE | ECON | [address] | | | | | [place] [address] | | + + + + + Care Team Providers + +------+ + | Care Field Service Coordinator Name | Role | Phone | [...] | | [address] | [place], [place] | adenocarcinoma | | | | Mailcode: Center | [address] | (HCC); Encounter for | | | | for Health and | [phone] | antineoplastic | | | | Healing, [address] | | chemotherapy; | | | | [place], [place] | | Pancreatic | | | | [address] | | insufficiency; | | | | [phone] | | Embolism due to any | [...] ABDOMEN AND PELVIS W IV CONTRAST Order: [id number] Performed: 08/13/2018 13:22 Status: Final result Visible [...] These results were discussed with the surgical manager on 08/13/2018 at approximately 1:45 PM by [...] well tolerated so far --Proceed with C2D1 [place]/Abraxane today (09/20/2018) --I discussed the goals, objectives, risks, benefits, and toxicities of therapy and the pat ient wishes to proceed. --Will need close and frequent monitoring physical examinations and laboratory monitoring f or toxicities of ongoing cytotoxic chemotherapy. # Nutrition: Rosemarie Galan following - continue CREON per nutrition recs Taz Mcneal PA-C HEMATOLOGY/MEDICAL ONCOLOGY AT [facility] [address] Mailcode: [place] [address] in this encounter Plan of Treatment +--------+ + + + + | Date | Type | Specialty | Care Team | Description | +--------+ + + + + | 11/09/ | Procedure | Hematology & | | | | 2019 | Pass | Oncology | | | +--------+ + + + + | 11/21/ | Appointment | Radiology | Toni cMcrary, | | | 2019 | | | ,PhD [address] | | | | | | [place], [place] | | | | | | [address] | | | | | | [phone] | | | | | | | | +--------+ + + + + | 11/21/ | Office | Hematology & | Toni Mccrary, | | | 2018 | Visit | Oncology | PhD BARB [address] | | | | | | [place] [facility] [place] | | | | | | [address] | | | | | | [phone] | | | | | | | [...] [address] | | | | | | [place], [place] | | | | | | [address] | | | | | | [phone] | | | | | | | | +--------+ + + + + | 11/28/ | Appointment | Hematology & | Onc, Gen [address] | | | 2019 | | Oncology | [address] [place], | | | | | | [place] [address] | | +--------+ + + + + | 11/29/ | Office | Physical Therapy | Genna Villegas PT | | | 2018 | Visit | | [address] | | | | | | [place], | | | | | | [place] [address] | | | | | | [phone] | | | | | | | [...] Rd | | | | | | [place], [place] | | | | | | [address] | | | | | | [phone] | | | | | | | | +--------+ + + + + | 12/12/ | Appointment | Hematology & | Onc, Gen [address] | | | 2019 | | Oncology | [place], | | | | | | [place] [address] | | +--------+ + + + + [...]
--- OUTSIDE RECORDS SUMMARY | ~2018-11-11 | XMS | Encounter Summary ---
Demographics + + + | Address | [address] | | | [place] [address] | + + + | Home Phone [...] | | | | | [place] [address] | | + + + + + Care Team Providers + +------+ + | Care Sound Equipment Mechanic Name | Role | Phone | + +------+ + | Piotr Plummer MD | PCP | | + +------+ + Reason for Visit + + + | Reason | Comments | + + + | Care Coordination | ERCP | + + + | Radiology Order | "Upper GI series" - need clarification for valid orders. | + + + Encounter Details +--------+ + + + + | Date | Type | Department | Care Team | Description | +--------+ + + + + | 10/19/ | Telephone | Hematology/Medical | Toni Mccrary, | Care Coordination | | 2019 | | [facility] [place] | ,PhD [address] | (ERCP); Radiology | | | | for Health & Healing | [address] [place], [place] | Order ("Upper GI | | | | [address] | [address] | series" - need | | | | Mailcode: [place] | [phone] | clarification for | | | | for Health and | | valid orders.) | | | | Healing, [address] | | | | | | [place], [place] | | | | | | [address] | | | | | | [phone] | | | +--------+ + + + [...] | | 2019 | | | MDPhD [address] | | | | | | [place], [place] | | | | | | [address] | | | | | | [phone] | | | | | | | | +--------+ + + + + | 11/21/ | Office | Hematology & | Toni Mccrary, | | | 2018 | Visit | Oncology | PhD BARB [address] | | | | | | [place], [place] | | | | | | [address] | | | | | | [phone] | | | | | | | | +--------+ + + + + | 11/28/ | Clinical | | | | | 2018 | Support | | | | | | Staff | | | | +--------+ + + + + | 11/28/ | Office | Hematology & | Taz Mcneal, | | | 2018 | Visit | Oncology | OLYA [address] | | | | | | [address] | | | | | | [place], [place] | | | | | | [address] | | | | | | [phone] | | | | | | | | +--------+ + + + + | 11/28/ | Appointment | Hematology & | Onc, Gen [address] | | | 2019 | | Oncology | [place], | | | | | | [place] [address] | | +--------+ + + + + | 11/29/ | Office | Physical Therapy | Genna Villegas PT | | | 2018 | Visit | | [address] | | | | | | [place], | | | | | | [place] [address] | | | | | | [phone] | | | | | | | | +--------+ + + + + | 12/12/ | Clinical | | | | | 2019 | Support | | | | | | Staff | | | | +--------+ + + + + | 12/12/ | Office | Hematology & | Taz Mcneal, | | | 2019 | Visit | Oncology | FABIANA-Cindy [address] | | | | | | [address] | | | | | | [place], [place] | | | | | | [address] | | | | | | [phone] | | | | | | | | +--------+ + + + + | 12/12/ | Appointment | Hematology & | Onc, Gen [address] | | | 2019 | | Oncology | [place], | | | | | | [place] [address] | | +--------+ + + + + as of this encounter Visit Diagnoses Not on filein this encounter
--- OUTSIDE RECORDS SUMMARY | ~2018-11-11 | XMS | Encounter Summary ---
Demographics + + + | Address | [address] | | | [place] [address] | + + + | Home Phone [...] | | | | | [place] [address] | | + + + + + Care Team Providers + +------+ + | Care Construction Analyst Name | Role | Phone | + +------+ + | Piotr Plummer MD | PCP | | + +------+ + Reason for Visit + + + | Reason | Comments | + + + | Social Work Notes | social work | + + + Encounter Details +--------+ + + + + | Date | Type | Department | Care Team | Description | +--------+ + + + + | 09/26/ | Documentati | Hematology/Medical | Work, Social | Social Work Notes | | 2019 | on | [facility] [place] | | (social work) | | | | for Health & Healing | | | | | | [address] | | | | | | Mailcode: [place] | | | | | | for Health and | | | | | | [facility], [place] [address] | | | | | | [place], [place] | | | | | | [address] | | | | | | [phone] | | | +--------+ + + + [...] | | | | | [place] | | | | | | [address] | | | | | | [phone] | | | | | | | | +--------+ + + + + | 11/21/ | Office | Hematology & | Toni Mccrary, | | | 2018 | Visit | Oncology | PhD [address] | | | | | | [place] | | | | | | [address] | | | | | | [phone] | | | | | | | [...] [place] | | | | | | [address] | | | | | | [phone] | | | | | | | | +--------+ + + + + | 11/28/ | Appointment | Hematology & | Onc, [address] | | | 2019 | | Oncology | [place] | | | | | | [place] [address] | | +--------+ + + + + | 11/29/ | Office | Physical Therapy | Genna Villegas PT | | | 2019 | Visit | | [address] | | | | | | [place], | | | | | | [place] [address] | | | | | | [phone] | | | | | | | [...] [place] | | | | | | [address] | | | | | | [phone] | | | | | | | | +--------+ + + + + | 12/12/ | Appointment | Hematology & | [address] | | | 2019 | | Oncology | [place] | | | | | | [place] [address] | | +--------+ + + + + as of this encounter Visit Diagnoses Not on filein this encounter"
--- OUTSIDE RECORDS SUMMARY | ~2018-11-11 | XMS | Encounter Summary ---
Demographics + + + | Address | [address] | | | [place] [address] | + + + | Home Phone [...] | | | | | [place] [address] | | + + + + + Care Team Providers + +------+ + | Care Spirits Model Name | Role | Phone | + [...] | | 2019 | | [facility] [place] | MICHELE,ACHPN [address] | | | | | for Health & Healing | [address] | | | | | [address] | [place], [place] | | | | | Mailcode: [place] | [address] | | | | | for Health and | [phone] | | | | | Healing, [address] [address] | | | | | | [place], [place] | | | | | | [address] | | | | | | [phone] | | | +--------+--------+ + + + [...] | | | | | | [place], [place] | | | | | | [address] | | | | | | [phone] | | | | | | | | +--------+ + + + + | 11/21/ | Office | Hematology & | Toni Mccrary, | | | 2018 | Visit | Oncology | PhD [address] | | | | | | [place], [place] | | | | | | [address] | | | | | | [phone] | | | | | | | [...] [address] | | | | | | [place] | | | | | | [address] | | | | | | [phone] | | | | | | | | +--------+ + + + + | 11/28/ | Appointment | Hematology & | [facility] [address] | | | 2019 | | Oncology | [place] | | | | | | [place] [address] | | +--------+ + + + + | 11/29/ | Office | Physical Therapy | Genna Villegas PT | | | 2018 | Visit | | [address] | | | | | | [place], | | | | | | [place] [address] | | | | | | [phone] | | | | | | | | +--------+ + + + + | 12/12/ | Clinical | | | | | 2019 | Support | | | | | | Staff | | | | +--------+ + + + + | 12/12/ | Office | Hematology & | Taz Mcneal, | | | 2018 | Visit | Oncology | OLYA [address] | | | | | | [address] | | | | | | [place] | | | | | | [address] | | | | | | [phone] | | | | | | | | +--------+ + + + + | 12/12/ | Appointment | Hematology & | [address] [address] | | | 2018 | | Oncology | [place] | | | | | | [place] [address] | | +--------+ + + + + [...]
--- OUTSIDE RECORDS SUMMARY | ~2018-11-11 | XMS | Encounter Summary ---
Demographics + + + | Address | [address] | | | [place] [address] | + + + | Home Phone [...] | | | | | [place] [address] | | + + + + + Care Team Providers + +------+ + | Care Thread Checker Name | Role | Phone | + +------+ + | Pitor Plummer MD | PCP | | + +------+ + Reason for Visit + + + | Reason | Comments | + + + | IV - Intravenous | | | infusion | | + + + Encounter Details +--------+ + + + + | Date | Type | Department | Care Team | Description | +--------+ + + + + | 04/03/ | Hospital | Hematology/Medical | A, Pod [address] | | | 2019 | Encounter | [facility] at [facility] | [address] [place], | | | | | [address] | [place] [address] | | | | | Mailcode: [place] | | | | | | for Health and | | | | | | [facility] | | | | | | [place], [place] | | | | | | [address] | | | | | | [phone] | | | +--------+ + + + [...] | 1 | 09/13/19 | | | hifmzu-fyaghvek-aotg | meals and 1 | capsule | [...] + as of this encounter Progress Notes Tami Au RN - 10/17/2018 12:06 PM PDTChemotherapy Nurse Note Name: Elaine Goode Date: 10/17/2018 Physician: Hermann Allergies: Elaine has No Known Allergies. Diagnosis: Pancreatic CA Significant Other: Nausea and/or Vomiting: None Pain: 0 Narrative: Patient here for lab draw and IV hydration. PAC accessed per protocol. CBC and CMP were drawn via PAC, resulted via POC and reviewed. P ositive blood return on IV line prior and after infusion. 1500ml NS infused. Pt tolerated w ithout incident. PAC flushed and left accessed for CT scan. 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 Refer to MAR and Onc Lines and Transfusions doc flowsheet for treatment details.in this enc ounter Plan of Treatment +--------+ + + + + | Date | Type | Specialty | Care Team | Description | +--------+ + + + + | 11/09/ | Procedure | Hematology & | | | | 2018 | Pass | Oncology | | | +--------+ + + + + | 05/08/ | Appointment | Radiology | Toni Mccrary, | | | 2019 | | | PhD BARB [address] | | | | | | [place] | | | | | | [address] | | | | | | [phone] | | | | | | | | +--------+ + + + + | 11/21/ | Office | Hematology & | Toni Mccrary, | | | 2018 | Visit | Oncology | PhD Mery [address] | | | | | | [place] | | | | | | [address] | | | | | | [phone] | | | | | | | [...] Rd | | | | | | [facility] [place] | | | | | | [address] | | | | | | [phone] | | | | | | | | +--------+ + + + + | 11/28/ | Appointment | Hematology & | Onc, Gen [address] | | | 2019 | | Oncology | [place], | | | | | | [place] [address] | | +--------+ + + + + | 11/29/ | Office | Physical Therapy | Genna Villegas PT | | | 2019 | Visit | | [address] | | | | | | [place], | | | | | | [place] [address] | | | | | | [phone] | | | | | | | | +--------+ + + + + | 12/12/ | Clinical | | | | | 2019 | Support | | | | | | Staff | | | | +--------+ + + + + | 12/12/ | Office | Hematology & | Taz Mcneal, | | | 2018 | Visit | Oncology | PACristi [address] [facility] | | | | | | [address] | | | | | | [place], [place] | | | | | | [address] | | | | | | [phone] | | | | | | | | +--------+ + + + + | 12/12/ | Appointment | Hematology & | Onc, Gen [address] | | | 2018 | | Oncology | [place] | | | | | | [place] [address] | | +--------+ + + + + as of this encounter Procedures + +--------+ + + + | Procedure Name | Priori | Date/Time | Associated Diagnosis | Comments | | | ty | | | | + +--------+ + + + | UA DIPSTICK 10 DIP | Routin | 10/17/2018 | Pancreatic | Results for this | | W/O MICRO | e | 3:00 PM | adenocarcinoma (HCC) | procedure are in the | | (AUTOMATED), POC | | PDT | | results section. | + +--------+ + + + | CULTURE, URINE [facility] | Routin | 10/17/2018 | Pancreatic | Results for this | | | e | 2:13 PM | adenocarcinoma (HCC) | procedure are in the | | | | PDT | | results section. | + +--------+ + + + | URINE, MICROSCOPIC | Routin | 10/17/2018 | Pancreatic | Results for this | | EXAM | e | 2:13 PM | adenocarcinoma (HCC) | procedure are in the | | | | PDT | | results section. | + +--------+ + + + | URINE SCREEN FOR | Routin | 10/17/2018 | Pancreatic | Results for this | | CULTURE | e | 2:13 PM | adenocarcinoma (HCC) | procedure are in the | | | | PDT | | results section. | + +--------+ + + + | CBC+DIFF,POC | Routin | 10/17/2018 | Pancreatic | Results for this | | | e | 1:42 PM | adenocarcinoma (HCC) | procedure are in the | | | | PDT | | results section. | + +--------+ + + + | CMP, POC (BMP+LFT) | Routin | 10/17/2018 | Pancreatic | Results for this | | | e | 1:39 PM | adenocarcinoma (HCC) | procedure are in the | | | | PDT | | results section. | + +--------+ + + + | CANCER AG GI (19-9), | Routin | 10/17/2018 | Pancreatic | Results for this | | SERUM | e | 1:07 PM | adenocarcinoma (HCC) | procedure are in the | | | | PDT | | results section. | + +--------+ + + + in this encounter Results UA 10 DIP, POC (10/17/2018 3:00 PM) + + + + + | Component | Value | Ref Range | Performed At | + + + + + | COLOR (UA DIP), POC | Yellow | | [facility] | | | | | POINT OF CARE | | | | | TESTS | + + + + + | APPEARANCE (UA DIP), | Clear | | [facility], | | POC | | | POINT OF CARE | | | | | TESTS | + + + + + | LEUKOCYTES (UA DIP), | Trace (A) | Negative | [facility], | | POC | | | POINT OF CARE | | | | | TESTS | + + + + + | NITRITES (UA DIP), | Negative | Negative | [facility], | | POC | | | POINT OF CARE | | | | | TESTS | + + + + + | UROBILINOGEN (UA | 1.0 | 0.2 - 1.0 E.U./dL | [facility], | | DIP), POC | | | POINT OF CARE | | | | | TESTS | + + + + + | PROTEIN (UA DIP), | 30.0 (A) | Neg - Trace mg/dL | [facility], | | POC | | | POINT OF CARE | | | | | TESTS | + + + + + | PH (UA DIP), POC | 5.5 | 5.0 - 8.0 | [facility], | | | | | POINT OF CARE | | | | | TESTS | + + + + + | BLOOD (UA DIP), POC | Negative | Negative | [facility], | | | | | POINT OF CARE | | | | | TESTS | + + + + + | SPECIFIC GRAVITY (UA | 1.025 | 1.005 - 1.030 | [facility], | | DIP), POC | | | POINT OF CARE | | | | | TESTS | + + + + + | KETONES (UA DIP), | Negative | Negative mg/dL | [facility], | | POC | | | POINT OF CARE | | | | | TESTS | + + + + + | BILIRUBIN (UA DIP), | Small (A) | Negative | [facility], | | POC | | | POINT OF CARE | | | | | TESTS | + + + + + | GLUCOSE (UA DIP), | Negative | Negative - Trace | [facility], | | POC | | mg/dL | POINT OF CARE | | | | | TESTS | + + + + + + + | Specimen | + + | Urine - Urine | + + + + + + + | Performing | Address | City/State/Zipcode | Phone Number | | Organization | | | | + + + + + | [facility] | [address] | [place] [address] | | | OF CARE TESTS | | | | + + + + + CULTURE, URINE [facility] (10/17/2018 2:13 PM) + + + + + | Component | Value | Ref Range | Performed At | + + + + + | URINE CULTURE [facility] | Insignificant growth | | [facility] | | | (<10,000 cfu/mL) | | [address] | + + + + + + + | Specimen | + + | Urine | + + + + + + + | Performing | Address | City/State/Zipcode | Phone Number | | Organization | | | | + + + + + | [facility] | [address] | [place] [address] | | | [facility] | [address] | | | + + + + + URINE, MICROSCOPIC EXAM (10/17/2018 2:13 PM) + +---------+ + + | Component | Value | Ref Range | Performed At | + +---------+ + + | RED CELLS | 4 (H) | 0 - 3 /hpf | [facility] | | | | | SERVICES, CORE | + +---------+ + + | WHITE CELLS | 5 | 0 - 5 /hpf | [facility] | | | | | SERVICES, CORE | + +---------+ + + | BACTERIA | None | None /hpf | [facility] | | | | | SERVICES, CORE | + +---------+ + + | YEAST (LAB) | None | None /hpf | [facility] | | | | | SERVICES, CORE | + +---------+ + + | SQUAMOUS EPITHELIAL | Few | None, Few /hpf | [facility] | | | | | SERVICES, CORE | + +---------+ + + | MUCOUS | Few | None, Few /hpf | [facility] | | | | | SERVICES, CORE | + +---------+ + + | NON-SQUAMOUS EPITH | Few (A) | None /hpf | [facility] | | | | | SERVICES, CORE | + +---------+ + + | HYALINE CASTS | 0 | 0 - 2 /lpf | [facility] | | | | | SERVICES, CORE | + +---------+ + + | GRANULAR CASTS | 0 | 0 - 2 /lpf | [facility] | | | | | SERVICES, CORE | + +---------+ + + | CELLULAR CASTS | 0 | <=0 /lpf | [facility] | | | | | SERVICES, CORE | + +---------+ + + | TRIPLE P04 CRYSTALS | None | None, Few /hpf | [facility] | | | | | SERVICES, CORE | + +---------+ + + | CALCIUM OXALATE GREGORIA | None | None, Few /hpf | [facility] | | | | | SERVICES, CORE | + +---------+ + + | URIC ACID CRYSTALS | None | None, Few /hpf | [facility] | | | | | SERVICES, CORE | + +---------+ + + | AMORPHOUS CRYSTALS | None | None, Few /hpf | [facility] | | | | | SERVICES, CORE | + +---------+ + + + + | Specimen | + + | Urine | + + + + + + + | Performing | Address | City/State/Zipcode | Phone Number | | Organization | | | | + + + + + | [facility] | [address] | [place] [address] | | | SERVICES, CORE | [address] | | | + + + + + URINE SCREEN FOR CULTURE (10/17/2018 2:13 PM) + + + + + | Component | Value | Ref Range | Performed At | + + + + + | URINE SCREEN FOR | Sent for Culture (A) | Negative | [facility] | | CULTURE | | | SERVICES, CORE | + + + + + + + | Specimen | + + | Urine | + + + + + | Narrative | Performed At | + + + | Culture Screen Positive, specimen sent for culture. | [facility] | | | LABORATORY | | | SERVICES, CORE | + + + + + + + + | Performing | Address | City/State/Zipcode | Phone Number | | Organization | | | | + + + + + | [facility] | [address] | [place] [address] | | | SERVICES, CORE | [address] | | | + + + + + CBC+DIFF,POC (10/17/2018 1:42 PM) + + + + + | Component | Value | Ref Range | Performed At | + + + + + | WBC POC | 5.8 | 3.5 - 10.8 10*3/uL | [facility], | | | | | POINT OF CARE | | | | | TESTS | + + + + + | RBC POC | 3.69 (L) | 4.00 - 5.20 10*6/uL | [facility], | | | | | POINT OF CARE | | | | | TESTS | + + + + + | HGB POC | 10.2 (L) | 12.0 - 16.0 g/dL | [facility], | | | | | POINT OF CARE | | | | | TESTS | + + + + + | HCT POC | 32.1 (L) | 36.0 - 46.0 % | [facility], | | | | | POINT OF CARE | | | | | TESTS | + + + + + | MCV POC | 87.0 | 80.0 - 100.0 fL | [facility] [...] + + | RDW SD, POC | 49.0 (H) | 35.1 - 46.3 fL | [facility], | | | | | POINT OF CARE | | | | | TESTS | + + + + + | PLT POC | 704 (H) | 150 - 400 10*3/uL | [...] + + + | NEUTROPHIL% POC | 72.3 (H) | 50.0 - 70.0 % | [facility], | | | | | POINT OF CARE | | | | | TESTS | + + + + + | LYMPH% POC | 9.1 (L) | 18 - 42 % | [facility], | | | | | POINT OF CARE | | | | | TESTS | + + + + + | MONO %, POC | 12.2 (H) | 3.5 - 9.0 % | [facility], | | | | | POINT OF CARE | | | | | TESTS | + + + + + | EOS %, POC | 5.7 (H) | 1.0 - 3.0 % | [...] + + + | NEUTROPHIL# POC | 4.2 | 1.8 - 7.7 10*3/uL | [facility], | | | | | POINT OF CARE | | | | | TESTS | + + + + + | LYMPH# POC | 0.5 (L) | 1.0 - 4.8 10*3/uL | [facility], | | | | | POINT OF CARE | | | | | TESTS | + + + + + | MONO #, POC | 0.7 | 0.1 - 0.9 10*3/uL | [facility] [...] 0.0 | 0.0 - 0.1 10*3/uL | [facility], | | | | | POINT OF CARE | | | | | TESTS | + + + + + + + | Specimen | + + | Blood - Blood | + + + + + + + | Performing | Address | City/State/Zipcode | Phone Number | | Organization | | | | + + + + + | [facility] | [address] | [place] [address] | | | OF CARE TESTS | | | | + + + + + CMP, POC (BMP+LFT) (10/17/2018 1:39 PM) + +---------+ + + | Component | Value | Ref Range | Performed At | + +---------+ + + | SODIUM, POC | 144 (H) | 134 - 143 mmol/L | [facility], | | | | | POINT OF CARE | | | | | TESTS | + +---------+ + + | POTASSIUM, POC | 3.5 | 3.4 - 5.0 mmol/L | [facility] [...] +---------+ + + | GLUCOSE, POC | 146 (H) | 60 - 99 mg/dL | [facility], | | | | | POINT OF CARE | | | | | TESTS | + +---------+ + + | CALCIUM TOTAL, POC | 9.8 | 8.6 - 10.2 mg/dL | [facility] [...] +---------+ + + | CREATININE, POC | 0.6 | 0.6 - 1.1 mg/dL | [facility], | | | | | POINT OF CARE | | | | | TESTS | + +---------+ + + | ALK PHOS, CMP POC | 438 (H) | 41 - 109 U/L | [facility], | | | | | POINT OF CARE | | | | | TESTS | + +---------+ + + | ALT, CMP POC | 97 (H) | 0 - 60 U/L | [facility], | | | | | POINT OF CARE | | | | | TESTS | + +---------+ + + | AST, CMP POC | 56 (H) | 0 - 41 U/L | [facility], | | | | | POINT OF CARE | | | | | TESTS | + +---------+ + + | BILIRUBIN TOTAL, CMP | 0.7 | 0.3 - 1.2 mg/dL | [facility] [...] 6.6 | 6.4 - 8.2 g/dL | [facility], | | POC | | | POINT [...] POINT | [address] | [place] [address] | | | OF CARE TESTS | | | | + + + + + CAN[facility]ER [facility] GI (), SERUM (10/17/2018 1:07 PM) + + + + + | Component | Value | Ref Range | Performed At | + + + + + | [facility] GI () | 1,117.2 (H) | <=37.0 U/mL | [facility] [...] + | [facility] | [address] | [place] [address] | | | SERVICES, CORE | [address] | | | + + + + + in this encounter Visit Diagnoses + + | Diagnosis | + + | Pancreatic adenocarcinoma (HCC) | + + | Malignant neoplasm of pancreas, part unspecified | + + Administered Medications + +---------+ + +------+------+ | Medication Order | MAR | Action | Dose | Rate | Site | | | Action | Date | | | | + +---------+ + +------+------+ | sodium chloride 0.9 % (NS) IV | New Bag | 10/17/2018 | 1,000 mL | | | | infusion 1,000 mL, intravenous, | | 13:30 | | | | | ONCE, 1 dose, 10/17/18 at 1315 | | PDT | | | | + +---------+ + +------+------+ +---+---+ | | | +---+---+ + +---------+ +--------+---+---+ | sodium chloride 0.9 % (NS) IV | New Bag | 10/17/2018 | 500 mL | | | | infusion 500 mL, intravenous, | | 15:15 | | | | | ONCE, 1 dose, 10/17/18 at 1545 | | PDT | | | | + +---------+ +--------+---+---+ +---+---+ | | | +---+---+ in this encounter"
--- OUTSIDE RECORDS SUMMARY | ~2018-11-11 | XMS | Encounter Summary ---
Demographics + + + | Address | [address] | | | [place] [address] | + + + | Home Phone [...] | | | | | [place] [address] | | + + + + + Care Team Providers + +------+ + | Care Computer Scientist Name | Role | Phone | + +------+ + | Piotr Plummer MD | PCP | | + +------+ + Reason for Visit + + + | Reason | Comments | + + + | Care Coordination | IV hydration twice weekly / | + + + | Urine Results | | + + + Encounter Details +--------+ + + + + | Date | Type | Department | Care Team | Description | +--------+ + + + + | 10/19/ | Telephone | Hematology/Medical | Toni Mccrary, | Care Coordination | | 2019 | | [facility] [place] | ,PhD [address] | (IV hydration twice | | | | for Health & Healing | [place], [place] | weekly / ); Urine | | | | [address] | [address] | Results | | | | Mailcode: [place] | [phone] | | | | | for Health and | | | | | | Healing, [address] | | | | | | [place], [place] | | | | | | [address] | | | | | | [phone] | | | +--------+ + + + [...] | | | | | | [place], [place] | | | | | | [address] | | | | | | [phone] | | | | | | | | +--------+ + + + + | 11/21/ | Office | Hematology & | Toni Mccrary, | | | 2018 | Visit | Oncology | PhD L[facility] DAY | | | | | | [place] | | | | | | [address] | | | | | | [phone] | | | | | | | [...] | | [facility] [place] | | | | | | [address] | | | | | | [phone] | | | | | | | | +--------+ + + + + | 11/28/ | Appointment | Hematology & | Gen [facility] [address] | | | 2019 | | Oncology | [place] | | | | | | [place] [address] | | +--------+ + + + + | 11/29/ | Office | Physical Therapy | Genna Villegas PT | | | 2019 | Visit | | [address] | | | | | | [place], | | | | | | [place] [address] | | | | | | [phone] | | | | | | | [...] Rd | | | | | | [place] | | | | | | [address] | | | | | | [phone] | | | | | | | | +--------+ + + + + | 12/12/ | Appointment | Hematology & | Onc, [address] | | | 2019 | | Oncology | [place] | | | | | | [place] [address] | | +--------+ + + + + as of this encounter Visit Diagnoses Not on filein this encounter"
--- OUTSIDE RECORDS SUMMARY | ~2018-11-11 | XMS | Encounter Summary ---
Demographics + + + | Address | [address] | | | [place] [address] | + + + | Home Phone [...] | | | | | [place] [address] | | + + + + + Care Team Providers + +------+ + | Care Rubber Block Layer Name | Role | Phone | + +------+ + | Piotr Plummer MD | PCP | | + +------+ + Reason for Visit + + + | Reason | Comments | + + + | Schedule labs | | + + + Encounter Details +--------+ + + + + | Date | Type | Department | Care Team | Description | +--------+ + + + + | 10/31/ | Hospital | Hematology/Medical | Onc, Gen [address] | | | 2019 | Encounter | [facility]cology at [facility] | [address] [place], | | | | | [address] | [place] [address] | | | | | Mailcode: [place] | | | | | | for Health and | | | | | | Healing, [address] | | | | | | [place], [place] | | | | | | [address] | | | | | | [phone] | | | +--------+ + + + [...] | 1 | 09/13/19 | | | [id number] | meals and 1 | capsule | [...] as of this encounter Progress Notes Tami Luong RN - 10/31/2018 11:17 AM PDTSingle lumen PAC accessed per protocol. Labs dra luna and sent to [facility]. PAC flushed per protocol and left accessed [...] [place] | | | | | | [address] | | | | | | [phone] | | | | | | | | +--------+ + + + + | 11/21/ | Office | Hematology & | Toni Mccrary, | | | 2018 | Visit | Oncology | PhD L[address] | | | | | | [place] | | | | | | [address] | | | | | | [phone] | | | | | | | [...] [address] | | | | | | [place], [place] | | | | | | [address] | | | | | | [phone] | | | | | | | | +--------+ + + + + | 11/28/ | Appointment | Hematology & | Gen [address] | | | 2019 | | Oncology | [place], | | | | | | [place] [address] | | +--------+ + + + + | 11/29/ | Office | Physical Therapy | Genna Villegas PT | | | 2019 | Visit | | [address] | | | | | | [place], | | | | | | [place] [address] | | | | | | [phone] | | | | | | | | +--------+ + + + + | 12/12/ | Clinical | | | | | 2018 | Support | | | | | | Staff | | | | +--------+ + + + + | 12/12/ | Office | Hematology & | Taz Mcneal, | | | 2018 | Visit | Oncology | [address] | | | | | | [address] | | | | | | [place] | | | | | | [address] | | | | | | [phone] | | | | | | | | +--------+ + + + + | 12/12/ | Appointment | Hematology & | [address] | | | 2019 | | Oncology | [place] | | | | | | [place] [address] | | +--------+ + + + + + +--------+ + + | Name | Priori | Associated Diagnoses | Order Schedule | | | ty | | | + +--------+ + + | CANCER AG GI (), SERUM | Routin | Pancreatic | Ordered: 10/31/2018 | | | e | adenocarcinoma (HCC) | | + +--------+ + + as of this encounter Procedures + +--------+ + + + | Procedure Name | Priori | Date/Time | Associated Diagnosis | Comments | | | ty | | | | + +--------+ + + + | CANCER AG GI (19-9), | Routin | 10/31/2018 | Pancreatic | Results for this | | SERUM | e | 12:07 PM | adenocarcinoma (HCC) | procedure are in the | | | | PDT | | results section. | + +--------+ + + + | CBC AND AUTO DIFF - | Routin | 10/31/2018 | Pancreatic | Results for this | | [facility] | e | 12:03 PM | adenocarcinoma (HCC) | procedure are in the | | | | PDT | | results section. | + +--------+ + + + | COMPLETE METABOLIC | Routin | 10/31/2018 | Pancreatic | Results for this | | PANEL - OLP | e | 12:03 PM | adenocarcinoma (HCC) | procedure are in the | | | | PDT | | results section. | + +--------+ + + + | CBC WITH AUTO DIFF - | Routin | 10/31/2018 | Pancreatic | Results for this | | OLP | e | 12:03 PM | adenocarcinoma (HCC) | procedure are in the | | | | PDT | | results section. | + +--------+ + + + | [facility] - COMPLETE | Routin | 10/31/2018 | Pancreatic | Results for this | | METABOLIC SET | e | 12:03 PM | adenocarcinoma (HCC) | procedure are in the | | | | PDT | | results section. | + +--------+ + + + in this encounter Results CANCER AG GI (), SERUM (10/31/2018 12:07 PM) + + + + + | Component | Value | Ref Range | Performed At | + + + + + | CANCER AG GI (-) | 2,500.9 (H) | <=37.0 U/mL | [facility] | | [facility] | | | SERVICES, CORE | + + + + + + + | Specimen | + + | Blood - Blood | + + + + + + + | Performing | Address | City/State/Zipcode | Phone Number | | Organization | | | | + + + + + | [facility] | [address] | [place] [address] | | | SERVICES, CORE | [address] | | | + + + + + [facility] - COMPLETE METABOLIC SET (10/31/2018 12:03 PM) + + + + + | Component | Value | Ref Range | Performed At | + + + + + | GLUCOSE, PLASMA | 161 (H) | 70 - 99 mg/dL | [...] + + + | CREATININE PLASMA | 0.58 (L) | 0.60 - 1.10 mg/dL | [facility] | | (LAB) | | | SERVICES, | | | | | [facility] + | | | | | HEALING | + + + + + | EGFR - | >60 | >60 mL/min | [facility] | | THAI | | | SERVICES, | | | | | [facility] | | | [facility] + | | | | | HEALING | + + + + + | EGFR NON | >60 | >60 mL/min | [facility] | | -THAI | | | SERVICES, | | | | | [facility] | | | [facility] + | | | | | HEALING | + + + + + | SODIUM, PLASMA (LAB) | 140 | 136 - 145 mmol/L | [facility] | | | | | SERVICES, | | | | | [facility] | [facility] | [facility] + | | | | | HEALING | + + + + + | POTASSIUM, PLASMA | 4.1 | 3.4 - 5.0 mmol/L | [facility] | | (LAB) | | | SERVICES, | | | | | [facility] | [facility] + | | | | | HEALING | + + + + + | CHLORIDE, PLASMA | 101 | 97 - 108 mmol/L | [facility] | | (LAB) | | | SERVICES, | | | | | [facility] | [facility] | [facility] + | | | | | HEALING | + + + + + | TOTAL CO2, PLASMA | 28 | 21 - 32 mmol/L | [facility] | | (LAB) | | | SERVICES, | | | | | [facility] | | | | | [facility] + | | | | | HEALING | + + + + + | CALCIUM, PLASMA | 8.8 | 8.6 - 10.2 mg/dL | [facility] | | (LAB) | | | SERVICES, | | | | | [facility] | | | | | [facility] + | | | | | HEALING | + + + + + | CALCIUM(ALB | 9.8 | 8.6 - 10.2 mg/dL [...] + + + | TOTAL PROTEIN, | 6.8 | 6.4 - 8.2 g/dL | [facility] | | PLASMA (LAB) | | | SERVICES, | | | | | [facility] | | | | | [facility] + | | | | | HEALING | + + + + + | ALBUMIN, PLASMA | 2.8 (L) | 3.5 - 4.7 g/dL | [facility] | | (LAB) | | | SERVICES, | | | | | [facility] | | [facility] | [facility] + | | | | | HEALING | + + + + + | ALK PHOS | 446 (H) | 53 - 141 U/L | [facility] | | | | | SERVICES, | | | | | [facility] | | | [facility] + | | | | | HEALING | + + + + + | AST(SGOT) | 30 | <=41 U/L | [facility] | | | | | SERVICES, | | | | | [facility] | | | [facility] + | | | | | HEALING | + + + + + | ALT (SGPT) | 65 (H) | <=60 U/L | [facility] | | | | | SERVICES, | | | | | [facility] | | | [facility] + | | | | | HEALING | + + + + + | ANION GAP | 11 | 4 - 11 mmol/L | [facility] | | | | | SERVICES, | | | | | [facility] | | | | | [facility] + | | | | | HEALING | + + + + + | ANION GAP(ALB | 14 (H) | 4 - 11 mmol/L | [facility] [...] T CMNT | No Hemo | | [facility] | | | | | SERVICES, | | | | | [facility] | | | | | HEALTH + | | | | | HEALING | + + + + + | AST CMNT | No Hemo | | [facility] | | | | | SERVICES, | | | | | [facility] | | | | | HEALTH + | | | | | HEALING | + + + + + + + | Specimen | + + | Blood - Blood | + + + + + | Narrative | Performed At | + + + | GFR is estimated using the MDRD equation recommended by the | [facility] | | National Kidney Disease Education Program. Estimated GFR | LABORATORY | | Interpretive Information: <60 mL/min/1.73 sq | SERVICES, | | m Chronic Kidney Disease <15 mL/min/1.73 | [facility] | | sq m Kidney Failure Estimated GFR greater | HEALTH + | | than 60 mL/min/1.73 sq m is of limited clinical value. The MDRD | HEALING | | equation is not valid in [...] | + + + + + | [employer] | [address] | [place] [address] | | | [facility], [facility] | | | | | [facility] + HEALING | | | | + + + + + CBC AND AUTO DIFF - [facility] (10/31/2018 12:03 PM) + + + + + | Component | Value | Ref Range | Performed At | + + + + + | WHITE CELL COUNT | 11.81 (H) | 3.50 - 10.80 K/cu mm | [facility] | | | | | SERVICES, | | | | | [facility] | | | | | [facility] + | | | | | HEALING | + + + + + | RED CELL COUNT | 4.18 | 4.00 - 5.20 M/cu mm | [facility] | | | | | SERVICES, | | | | | [facility] | | | | | [facility] + | | | | | HEALING | + + + + + | HEMOGLOBIN | 11.3 (L) | 12.0 - 16.0 g/dL | [facility] | | | | | SERVICES, | | | | | [facility] | | | | | [facility] + | | | | | HEALING | + + + + + | HEMATOCRIT | 35.9 (L) | 36.0 - 46.0 % | [facility] | | | | | SERVICES, | | | | | [facility] | | | | | [facility] + | | | | | HEALING | + + + + + | MCV | 85.9 | 80.0 - 100.0 fL | [facility] | | | | | SERVICES, | | | | | [facility] | | | | | [facility] + | | | | | HEALING | + + + + + | MCHC | 31.5 (L) | 32.0 - 36.0 g/dL | [facility] | | | | | SERVICES, | | | | | [facility] | | | | | [facility] + | | | | | HEALING | + + + + + | RDW SD | 51.0 (H) | 35.1 - 46.3 fL | [facility] | | | | | SERVICES, | | | | | [facility] | | | | | [facility] + | | | | | HEALING | + + + + + | PLATELET COUNT | 392 | 150 - 400 K/cu mm | [...] + + + | NEUTROPHIL % | 67.7 | 50.0 - 70.0 % | [facility] | | | | | SERVICES, | | | | | [facility] | | | | | [facility] + | | | | | HEALING | + + + + + | LYMPHOCYTE % | 7.5 (L) | 18.0 - 42.0 % | [facility] | | | | | SERVICES, | | | | | [facility] | | | | | [facility] + | | | | | HEALING | + + + + + | MONOCYTE % | 9.0 | 3.5 - 9.0 % | [facility] | | | | | SERVICES, | | | | | [facility] | | | | | [facility] + | | | | | HEALING | + + + + + | EOS % | 14.6 (H) | 1.0 - 3.0 % | [facility] | | | | | SERVICES, | | | | | [facility] | | | | | [facility] + | | | | | HEALING | + + + + + | BASO % | 0.8 | 0.0 - 2.0 % | [facility] | | | | | SERVICES, | | | | | [facility] | | | | | [facility]ALTH + | | | | | HEALING | + + + + + | IG% | 0.4Comment: Increased | 0.0 - 1.0 % | [facility] | | | immature granulocytes | | SERVICES, | | | (IG) define a left | | [facility] FOR | | | shift. Immature | | HEALTH + | | | granulocytes (IG) are an | | HEALING | | | automated count of | [...] + + + | NEUTROPHIL # | 8.00 (H) | 1.80 - 7.70 K/cu mm | [facility] | | | | | SERVICES, | | | | | [facility] | | | | | HEALTH + | | | | | HEALING | + + + + + | NEUTROPHIL # Prelim | 8.00 (H)Comment: | 1.80 - 7.70 K/cu mm | [facility] | | | Preliminary automated | | SERVICES, | | | neutrophil result. | | [facility] | | | Refer to Neutrophil # | | HEALTH + | | | for final neutrophil | | HEALING | | | result, which may differ | | | | | from this preliminary | | | | | value. | | | + + + + + | LYMPHOCYTE # | 0.88 (L) | 1.00 - 4.80 K/cu mm | [facility] | | | | | SERVICES, | | | | | [facility] | | | | | HEALTH + | | | | | HEALING | + + + + + | MONOCYTE # | 1.06 (H) | 0.10 - 0.90 K/cu mm | [facility] | | | | | SERVICES, | | | | | [facility] | | | | | HEALTH + | | | | | HEALING | + + + + + | EOS # | 1.73 (H) | 0.00 - 0.50 K/cu mm | [facility] | | | | | SERVICES, | | | | | [facility] | | | | | [facility] + | | | | | HEALING | + + + + + | BASO # | 0.09 | 0.00 - 0.10 K/cu mm | [facility] | | | | | SERVICES, | | | | | [facility] | | | | | HEALTH + | | | | | HEALING | + + + + + | IG# | 0.05 | 0.00 - 0.10 K/cu mm | [facility] | | [...] included in the IG count. | SERVICES, | | Bands are included in the neutrophil count. | [facility] | | | HEALTH + | | | HEALING | + + + + + + + + | Performing | Address | City/State/Zipcode | Phone Number | | Organization | | | | + + + + + | [facility] | [address] | [place] [address] | | | [facility] | | | | | HEALTH + HEALING | | | | + + + + + in this encounter Visit Diagnoses + + | Diagnosis | + + | Pancreatic adenocarcinoma (HCC) | + + | Malignant neoplasm of pancreas, part unspecified | + +"
--- OUTSIDE RECORDS SUMMARY | ~2018-11-11 | XMS | Encounter Summary ---
Demographics + + + | Address | [address] | | | [place] [address] | + + + | Home Phone [...] | | | | | [place] [address] | | + + + + + Care Team Providers + +------+ + | Care Antichecking Iron Worker Name | Role | Phone | [...] | | 2019 | | [facility] at [place] | ,PhD [address] | | | | | for Health & Healing | [place], [place] | | | | | [address] | [address] | | | | | Mailcode: [place] | [phone] | | | | | for Health and | | | | | | Healing, [address] | | | | | | [place], [place] | | | | | | [address] | | | | | | [phone] | | | +--------+--------+ + + + [...] [place] | | | | | | [address] | | | | | | [phone] | | | | | | | | +--------+ + + + + | 11/21/ | Office | Hematology & | Toni Mccrary, | | | 2018 | Visit | Oncology | PhD L[address] | | | | | | [place] | | | | | | [address] | | | | | | [phone] | | | | | | | | +--------+ + + + + | 11/28/ | Clinical | | | | | 2018 | Support | | | | | | Staff | | | | +--------+ + + + + | 11/28/ | Office | Hematology & | Taz Mcneal, | | | 2018 | Visit | Oncology | [place] | | | | | | [address] | | | | | | [place] | | | | | | [address] | | | | | | [phone] | | | | | | | | +--------+ + + + + | 11/28/ | Appointment | Hematology & | Onc, [address] | | | 2019 | | Oncology | [place] | | | | | | [place] [address] | | +--------+ + + + + | 11/29/ | Office | Physical Therapy | Genna Villegas PT | | | 2019 | Visit | | [address] | | | | | | [place], | | | | | | [place] [address] | | | | | | [phone] | | | | | | | | +--------+ + + + + | 12/12/ | Clinical | | | | | 2019 | Support | | | | | | Staff | | | | +--------+ + + + + | 12/12/ | Office | Hematology & | Taz Mcneal, | | | 2018 | Visit | Oncology | [place] [address] | | | | | | [address] | | | | | | [place] | | | | | | [address] | | | | | | [phone] | | | | | | | | +--------+ + + + + | 12/12/ | Appointment | Hematology & | [address] | | | 2019 | | Oncology | [place] | | | | | | [place] [address] | | +--------+ + + + + [...]
--- OUTSIDE RECORDS SUMMARY | ~2018-11-11 | XMS | Encounter Summary ---
Demographics + + + | Address | [address] | | | [place] [address] | + + + | Home Phone [...] | | | | | [place] [address] | | + + + + + Care Team Providers + +------+ + | Care Neonatal Intensive Care Nurse Name | Role | Phone | + [...] | | 2019 | | [facility] at [place] | ,PhD [address] | (cycle 1, day 1 of | | | | for Health & Healing | [address] [facility] [place] | gemcitabine, | | | | [address] | [address] | Abraxane); Treatment | | | | Mailcode: [place] | [phone] | Questions | | | | for Health and | | | | | | Healing, [address] | | | | | | [place], [place] | | | | | | [address] | | | | | | [phone] | | | +--------+ + + + [...] | | 2018 | | | ,PhD [address] | | | | | | [place], [place] | | | | | | [address] | | | | | | [phone] | | | | | | | | +--------+ + + + + | 11/21/ | Office | Hematology & | Toni Mccrary, | | | 2018 | Visit | Oncology | PhD BARB [address] | | | | | | [place], [place] | | | | | | [address] | | | | | | [phone] | | | | | | | | +--------+ + + + + | 11/28/ | Clinical | | | | | 2018 | Support | | | | | | Staff | | | | +--------+ + + + + | 11/28/ | Office | Hematology & | Taz Mcneal, | | | 2018 | Visit | Oncology | [place] [address] | | | | | | [address] | | | | | | [place], [place] | | | | | | [address] | | | | | | [phone] | | | | | | | | +--------+ + + + + | 11/28/ | Appointment | Hematology & | Gen Elizabeth [address] | | | 2019 | | Oncology | [address] [place], | | | | | | [place] [address] | | +--------+ + + + + | 11/29/ | Office | Physical Therapy | Genna Villegas PT | | | 2019 | Visit | | [address] | | | | | | [place], | | | | | | [place] [address] | | | | | | [phone] | | | | | | | [...] Rd | | | | | | [place] | | | | | | [address] | | | | | | [phone] | | | | | | | | +--------+ + + + + | 12/12/ | Appointment | Hematology & | Onc, [address] | | | 2019 | | Oncology | [place], | | | | | | [place] [address] | | +--------+ + + + + as of this encounter Visit Diagnoses Not on filein this encounter"
--- OUTSIDE RECORDS SUMMARY | ~2018-11-11 | XMS | Encounter Summary ---
Demographics + + + | Address | [address] | | | [place] [address] | + + + | Home Phone [...] | | | | | [place] [address] | | + + + + + Care Team Providers + +------+ + | Care Clinical Lab Assistant Name | Role | Phone | [...] | | 2019 | | [facility] at [place] | ,PhD [address] | | | | | for Health & Healing | [place], [place] | | | | | [address] | [address] | | | | | Mailcode: [place] | [phone] | | | | | for Health and | | | | | | Healing, [address] | | | | | | [place], [place] | | | | | | [address] | | | | | | [phone] | | | +--------+ + + + [...] [place] | | | | | | [address] | | | | | | [phone] | | | | | | | | +--------+ + + + + | 11/21/ | Office | Hematology & | Toni Mccrary, | | | 2018 | Visit | Oncology | MDPhD [address] | | | | | | [place] | | | | | | [address] | | | | | | [phone] | | | | | | | [...] [place] | | | | | | [address] | | | | | | [phone] | | | | | | | | +--------+ + + + + | 11/28/ | Appointment | Hematology & | Elizabeth, [address] | | | 2019 | | Oncology | [place] | | | | | | [place] [address] | | +--------+ + + + + | 11/29/ | Office | Physical Therapy | Genna Villegas, PT | | | 2019 | Visit | | [address] | | | | | | [place], | | | | | | [place] [address] | | | | | | [phone] | | | | | | | | +--------+ + + + + | 12/12/ | Clinical | | | | | 2018 | Support | | | | | | Staff | | | | +--------+ + + + + | 12/12/ | Office | Hematology & | Taz Mcneal, | | | 2018 | Visit | Oncology | [place] [address] [facility] | | | | | | [address] | | | | | | [place] | | | | | | [address] | | | | | | [phone] | | | | | | | | +--------+ + + + + | 12/12/ | Appointment | Hematology & | [address] | | | 2019 | | Oncology | [place] | | | | | | [place] [address] | | +--------+ + + + + as of this encounter Visit Diagnoses Not on filein this encounter"
--- OUTSIDE RECORDS SUMMARY | ~2018-11-11 | XMS | Encounter Summary ---
Demographics + + + | Address | [address] | | | [place] [address] | + + + | Home Phone | | + + + | Preferred Language | Unknown | + + + | Marital Status | | + + + | Christianity Affiliation | NRP | + + + | Race | White | + + + | Ethnic Group | Not or | + + + Author + + + | Author | [facility] | + + + | Organization | [facility] | + + + | Address | Unknown | + + + | Phone | Unavailable | + + + Support + + + + + | Name | Relationship | Address | Phone | + + + + + | ELSA GOODE | ECON | [address] | | | | | [place] [address] | | + + + + + Care Team Providers + +------+ + | Care Hand Roller Engraver Name | Role | Phone | + [...] | 09/19/ | Hospital | Hematology/Medical | A, [address] | | | 2019 | Encounter | Oncology at [facility] | [address] [place], | | | | | [address] | [place] [address] | | | | | Mailcode: Center | | | | | | for Health and | | | | | | [facility] | | | | | | [place], [place] | | | | | | [address] | | | | | | [phone] | | | +--------+ + + + [...] + + + | Blood Pressure | 113/67 | 09/19/2018 2:24 PM PST | + + + + | Pulse | 86 | 09/19/2018 2:24 PM PST | + + + + | Temperature | 37.2 C (98.9 F) | 09/19/2018 2:24 PM PST | + + + + | Respiratory Rate | 16 | 09/19/2018 2:24 PM PST | + + + + | Oxygen Saturation | 98% | 09/19/2018 2:24 PM PST | + + + + | Inhaled Oxygen | - | - | | Concentration | | | + + + + | Weight | 55.6 kg (122 lb 9.6 | 09/19/2018 2:24 PM PST | | | oz) | | + + + + | Height | - | - | + + + + | Body Mass Index | 21.72 | 09/19/2018 2:24 PM PST | + + + + [...] | 1 | 09/13/19 | | | [id number] | meals and 1 | capsule | [...] encounter Progress Notes Laz Barahona RN - 09/19/2018 1:48 PM PSTChemotherapy Nurse Note Name: Elaine Goode Date: 09/19/2018 Physician: Hermann Allergies: Elaine has No Known Allergies. Diagnosis: pancreatic adenocarcinoma Significant Other: Nursing Assessment: Fever: no; Diarrhea:No Constipation: No SOB / Cough: no; Rash: no Edema: no; Mucositis: no; Urinary: no; Neuropathy: no; S/S Bleeding: no; Severity (1=Not at all, 2=A little, 3=Quite a bit, 4=Very much) Nausea and/or Vomitin Fatigue: 1 Pain: Location: abdominal distension Duration: frequent Narrative: Patient here for Gemzar + Abraxane, feeling ok at this time. Labs drawn by [place] rail track layer, reviewed. Abraxane checked with 2 RNs per protocol, + blood return noted before infus ion, infusion completed without incident, + blood return noted after infusion. Gemzar checke d with 2 RNs per protocol, + blood return noted before infusion, infusion completed without incident, + blood return noted after infusion. PAC flushed with 20 ml NS followed by 500 uni ts heparin and deaccessed per protocol; pt dc home at 1740. Medication infused with 250ml NS sidearm bag. [...] | | 2018 | | | ,PhD [address] | | | | | | [place], [place] | | | | | | [address] | | | | | | [phone] | | | | | | | | +--------+ + + + + | 11/21/ | Office | Hematology & | Toni Mccrary, | | | 2018 | Visit | Oncology | PhD BARB [address] | | | | | | [place], [place] | | | | | | [address] | | | | | | [phone] | | | | | | | [...] Rd | | | | | | [place], [place] | | | | | | [address] | | | | | | [phone] | | | | | | | | +--------+ + + + + | 11/28/ | Appointment | Hematology & | Gen L[address]pez Johnson | | | 2018 | | Oncology | [address] [place], | | | | | | [place] [address] | | +--------+ + + + + | 11/29/ | Office | Physical Therapy | Genna Villegas PT | | | 2019 | Visit | | [address] | | | | | | [place], | | | | | | [place] [address] | | | | | | [phone] | | | | | | | [...] | | | [facility] [place] | | | | | | [address] | | | | | | [phone] | | | | | | | | +--------+ + + + + | 12/12/ | Appointment | Hematology & | Onc, [address] | | | 2019 | | Oncology | [place], | | | | | | [place] [address] | | +--------+ + + + + [...] +--------+------+------+ | aprepitant (CINVANTI) | Given | 09/19/2018 | 130 mg | | | | injectable emulsion 130 mg 130 | | 15:40 | | | | | mg, intravenous, ONCE, 1 dose, | | PST | | | | | 09/19/18 at 1445 | | | | | | + +--------+ +--------+------+------+ +---+---+ | | | +---+---+ + +-------+ +------+---+---+ | dexamethasone PF (DECADRON) | Given | 09/19/2018 | 8 mg | | | | injection 8 mg 8 mg, | | 15:50 | | | | | intravenous, ONCE, 1 dose, Wed | | PST | | | | | 09/19/18 at 1445 | | | | | | + +-------+ +------+---+---+ +---+---+ | | | +---+---+ + +---------+ + +---------+---+ | gemcitabine 1,600 mg in NaCl | New Bag | 09/19/2018 | 1,600 mg | 584.21 | | | 0.9 % (NS) IV 1,600 mg (rounded | | 16:50 | | mL/hr | | | from 1,590 mg = 1,000 mg/m2 | | PST | | | | | 1.59 m2 Treatment plan recorded | | | | | | | BSA), intravenous, Administer | | | | | | | over 30 Minutes, ONCE, 1 dose, | | | | | | | 09/19/18 at 1515, HIGH ALERT | | | | | | | MEDICATION-CHEMOTHERAPY | | | | | | | Irritant. May run 500 mL NS to | | | | | | | decrease vein discomfort. | | | | | | + +---------+ + +---------+---+ +---+---+ | | | +---+---+ + +---------+ +--------+ +---+ | PACLitaxel (protein bound) | New Bag | 09/19/2018 | 200 mg | 80 mL/hr | | | (ABRAXANE) injection 200 mg 200 | | 16:23 | | | | | mg (rounded from 198.75 mg = 125 | | PST | | | | | mg/m2 | | | | | | | 1.59 m2 Treatment plan recorded | | | | | | | BSA), intravenous, ONCE, 1 dose, | | | | | | | 09/19/18 at 1445 | | | | | | + +---------+ +--------+ +---+ +---+---+ | | | +---+---+ + +-------+ +---------+---+---+ | palonosetron HCl (ALOXI) | Given | 09/19/2018 | 0.25 mg | | | | injection 0.25 mg 0.25 mg, | | 15:43 | | | | | intravenous, ONCE, 1 dose, Wed | | PST | | | | | 09/19/18 at 1445 | | | | | | + +-------+ +---------+---+---+ +---+---+ | | | +---+---+ in this encounter"
--- OUTSIDE RECORDS SUMMARY | ~2018-11-11 | XMS | Encounter Summary ---
Demographics + + + | Address | [address] | | | [place] [address] | + + + | Home Phone [...] Author + + + | Author | [facility] | + + + | Organization | [facility] | + + + | Address | Unknown | + + + | Phone | Unavailable | + + + Support + + + + + | Name | Relationship | Address | Phone | + + + + + | ELSA GOODE | ECON | [address] | | | | | [place] [address] | | + + + + + Care Team Providers + +------+ + | Care Spot Worker Name | Role | Phone | [...] | 2019 | Visit | [facility] | [place]A [address] | adenocarcinoma (HCC) | | | | for Health & Healing | [address] | (Primary Dx); Liver | | | | [address] | [place], [place] | metastases (HCC); | | | | Mailcode: [facility] | [address] | Encounter for | | | | for Health and | [phone] | antineoplastic | | | | [facility] | | chemotherapy | | | | [place], [place] | | | | | | [address] | | | | | | [phone] | | | +--------+---------+ + + + [...] Mcneal PA-C - 10/17/2018 1:50 PM PDTMs. Rupa, It was good to see you today. [...] clinic hours please call the clinic at [phone]. Evenings, weekends and holidays please call [phone] and ask to have the oncologist vice president of talent acquisition paged. in this encounter Progress Notes Taz [...] ABDOMEN AND PELVIS W IV CONTRAST Order: [id number] Performed: 08/13/2018 13:22 Status: Final result Visible [...] These results were discussed with the surgical appliances salesperson on 08/13/2018 at approximately 1:45 PM by [...] hypoK+, C Diff ne gative. --Hold C3D1 [place]/Abraxane today (10/17/2018) per Dr. Mccrary --Repeat CT [...] 10/17/2018) Taz Mcneal PA-C HEMATOLOGY/MEDICAL ONCOLOGY AT [address] Mailcode: [place] [address] in this encounter Plan of [...] | | 2019 | | | PhD [address] | | | | | | [place] | | | | | | [address] | | | | | | [phone] | | | | | | | | +--------+ + + + + | 11/21/ | Office | Hematology & | Toni Mccrary, | | | 2018 | Visit | Oncology | PhD [address] | | | | | | [place] | | | | | | [address] | | | | | | [phone] | | | | | | | [...] Rd | | | | | | [place], [place] | | | | | | [address] | | | | | | [phone] | | | | | | | | +--------+ + + + + | 11/28/ | Appointment | Hematology & | Onc, Gen [address] | | | 2019 | | Oncology | [place], | | | | | | [place] [address] | | +--------+ + + + + | 11/29/ | Office | Physical Therapy | Genna Villegas PT | | | 2018 | Visit | | [address] | | | | | | [place], | | | | | | [place] [address] | | | | | | [phone] | | | | | | | | +--------+ + + + + | 12/12/ | Clinical | | | | | 2019 | Support | | | | | | Staff | | | | +--------+ + + + + | 12/12/ | Office | Hematology & | Taz Mcneal, | | | 2018 | Visit | Oncology | [place] [address] [facility] | | | | | | [address] | | | | | | [place], [place] | | | | | | [address] | | | | | | [phone] | | | | | | | | +--------+ + + + + | 12/12/ | Appointment | Hematology & | Onc, Gen [address] | | | 2018 | | Oncology | [place] | | | | | | [place] [address] | | +--------+ + + + + [...]
--- OUTSIDE RECORDS SUMMARY | ~2018-11-11 | XMS | Encounter Summary ---
Demographics + + + | Address | [address] | | | [place] [address] | + + + | Home Phone | | + + + | Preferred Language | Unknown | + + + | Marital Status | | + + + | Lutheran Affiliation | NRP | + + + [...] | | | | | [place] [address] | | + + + + + Care Team Providers + +------+ + | Care Wrapper Off Name | Role | Phone | + +------+ + | Piotr Plummer MD | PCP | | + +------+ + Reason for Referral Speech Therapy (Routine) +--------+--------+ + + + + | Status | Reason | Specialty | Diagnoses / | Referred By | Referred To | | | | | Procedures | Contact | Contact | +--------+--------+ + + + + | Closed | | Speech | Diagnoses | Hermann | [address] [facility] | | | | Therapy | Pancreatic | Toni, | [address] | | | | | adenocarcino | ,PhD [address] | | | | | ma (HCC) | [address] | Mailcode: | | | | | Liver | [place], | [address] | | | | | metastases | [place] | for Health | | | | | (HCC) | [address] | and Healing, | | | | | Chemotherapy | Phone: | 1st floor | | | | | -induced | [phone] | [place], [place] | | | | | neuropathy | Fax: | [address] | | | | | (HCC) | [phone] | Phone: | | | | | Procedures | | [phone] | | | | | SPEECH | | Fax: | | | | | THERAPY | | [phone] | | | | | REFERRAL | | | +--------+--------+ + + + + Physical Therapy (Routine) + +--------+ + + + + | Status | Reason | Specialty | Diagnoses / | Referred By | Referred To | | | | | Procedures | Contact | Contact | + +--------+ + + + + | New Request | | Physical | Diagnoses | Hermann, | [address] [facility] | | | | Therapy | Pancreatic | Toni | [address] | | | | | adenocarcino | ,PhD [address] | | | | | ma (HCC) | [address] | Mailcode: | | | | | Liver | [place], | [address] | | | | | metastases | [place] | for Health | | | | | (HCC) | [address] | and Healing, | | | | | Chemotherapy | Phone: | 1st floor | | | | | -induced | [phone] | [place], [place] | | | | | neuropathy | Fax: | [address] | | | | | (HCC) | [phone] | Phone: | | | | | Procedures | | [phone] | | | | | PHYSICAL | | Fax: | | | | | THERAPY | | [phone] | | | | | REFERRAL | | | + +--------+ + + + + Reason for Visit + + + | Reason | Comments | + + + | Telephone follow-up | | + + + Encounter Details +--------+ + + + + | Date | Type | Department | Care Team | Description | +--------+ + + + + | 11/08/ | Telephone | Hematology/Medical | Toni Mccrary, | Telephone follow-up | | 2019 | | [facility] at [place] | ,PhD [address] | | | | | for Health & Healing | [address] [facility] [place] | | | | | [address] | [address] | | | | | Mailcode: [place] | [phone] | | | | | for Health and | | | | | | Healing, Building [address] | | | | | | [place], [place] | | | | | | [address] | | | | | | [phone] | | | +--------+ + + + [...] | | | | | | [place], [place] | | | | | | [address] | | | | | | [phone] | | | | | | | | +--------+ + + + + | 11/21/ | Office | Hematology & | Toni Mccrary, | | | 2018 | Visit | Oncology | MDPhD [address] | | | | | | [place], [place] | | | | | | [address] | | | | | | [phone] | | | | | | | [...] Rd | | | | | | [place], [place] | | | | | | [address] | | | | | | [phone] | | | | | | | | +--------+ + + + + | 11/28/ | Appointment | Hematology & | Gen Elizabeth [address] | | | 2019 | | Oncology | [place], | | | | | | [place] [address] | | +--------+ + + + + | 11/29/ | Office | Physical Therapy | Genna Villegas PT | | | 2019 | Visit | | [address] | | | | | | [place], | | | | | | [place] [address] | | | | | | [phone] | | | | | | | [...] [place] | | | | | | [address] | | | | | | [phone] | | | | | | | | +--------+ + + + + | 12/12/ | Appointment | Hematology & | Gen [address] | | | 2019 | | Oncology | [place] | | | | | | [place] [address] | | +--------+ + + + + as of this encounter Visit Diagnoses + + | Diagnosis | + + | Pancreatic adenocarcinoma (HCC) - Primary | + + | Malignant neoplasm of pancreas, part unspecified | + + | Liver metastases (HCC) | + + | Secondary malignant neoplasm of liver | + + | Chemotherapy-induced neuropathy (HCC) | + + | 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
--- OUTSIDE RECORDS SUMMARY | ~2018-11-11 | XMS | Encounter Summary ---
Demographics + + + | Address | [address] | | | [place] [address] | + + + | Home Phone [...] + + + | Author | [facility] | + + + | Organization | [facility] | + + + | Address | Unknown | + + + | Phone | Unavailable | + + + Support + + + + + | Name | Relationship | Address | Phone | + + + + + | ELSA GOODE | ECON | [address] | | | | | [place] [address] | | + + + + + Care Team Providers + +------+ + | Care Sulfur Burner Name | Role | Phone | + [...] | | | | Mailcode: Center | [place], [place] | | | | | [facility] Health and | [address] | | | | | Healing, [facility] 2 | | | | | | [place], [place] | | | | | | [address] | | | | | | [phone] | | | +--------+ + + + [...] | | | | | | [place], [place] | | | | | | [address] | | | | | | [phone] | | | | | | | | +--------+ + + + + | 11/21/ | Office | Hematology & | Toni Mccrary, | | | 2018 | Visit | Oncology | PhD [address] | | | | | | [place], [place] | | | | | | [address] | | | | | | [phone] | | | | | | | [...] Rd | | | | | | [place], [place] | | | | | | [address] | | | | | | [phone] | | | | | | | | +--------+ + + + + | 11/28/ | Appointment | Hematology & | Onc, Gen [address] | | | 2018 | | Oncology | [place], | | | | | | [place] [address] | | +--------+ + + + + | 11/29/ | Office | Physical Therapy | Genna Villegas PT | | | 2018 | Visit | | [address] | | | | | | [place], | | | | | | [place] [address] | | | | | | [phone] | | | | | | | | +--------+ + + + + | 12/12/ | Clinical | | | | | 2019 | Support | | | | | | Staff | | | | +--------+ + + + + | 12/12/ | Office | Hematology & | Taz Mcneal, | | | 2018 | Visit | Oncology | [address] | | | | | | [address] | | | | | | [place] | | | | | | [address] | | | | | | [phone] | | | | | | | | +--------+ + + + + | 12/12/ | Appointment | Hematology & | Gen Elizabeth [address] | | | 2018 | | Oncology | [place] | | | | | | [place] [address] | | +--------+ + + + + as of this encounter Visit Diagnoses Not on filein this encounter"
--- OUTSIDE RECORDS SUMMARY | ~2018-11-11 | XMS | Encounter Summary ---
Demographics + + + | Address | [address] | | | [place] [address] | + + + | Home Phone [...] | | | | | [place] [address] | | + + + + + Care Team Providers + +------+ + | Care Four Horse Hitch Driver Name | Role | Phone | + +------+ + | Piotr Plummer MD | PCP | | + +------+ + Encounter Details +--------+ + + + + | Date | Type | Department | Care Team | Description | +--------+ + + + + | 10/02/ | Change Management Consultant | Hematology/Medical | Toni Mccrary, | | | 2019 | | [facility]cology at [place] | ,PhD [address] | | | | | for Health & Healing | [place], [place] | | | | | [address] | [address] | | | | | Mailcode: [place] | [phone] | | | | | for Health and | | | | | | Healing, [address] | | | | | | [place], [place] | | | | | | [address] | | | | | | [phone] | | | +--------+ + + + [...] | | | | | | [place], [place] | | | | | | [address] | | | | | | [phone] | | | | | | | | +--------+ + + + + | 11/21/ | Office | Hematology & | Toni Mccrary, | | | 2018 | Visit | Oncology | PhD [address]ery [address] | | | | | | [place], [place] | | | | | | [address] | | | | | | [phone] | | | | | | | [...] Rd | | | | | | [place], [place] | | | | | | [address] | | | | | | [phone] | | | | | | | | +--------+ + + + + | 11/28/ | Appointment | Hematology & | Onc, Gen [address] | | | 2019 | | Oncology | [place], | | | | | | [place] [address] | | +--------+ + + + + | 11/29/ | Office | Physical Therapy | Genna Villegas, PT | | | 2019 | Visit | | [address] | | | | | | [place], | | | | | | [place] [address] | | | | | | [phone] | | | | | | | | +--------+ + + + + | 12/12/ | Clinical | | | | | 2019 | Support | | | | | | Staff | | | | +--------+ + + + + | 12/12/ | Office | Hematology & | Taz Mcneal, | | | 2018 | Visit | Oncology | [address] [facility] | | | | | | [address] | | | | | | [place] | | | | | | [address] | | | | | | [phone] | | | | | | | [...]
--- OUTSIDE RECORDS SUMMARY | ~2018-11-11 | XMS | Encounter Summary ---
Demographics + + + | Address | [address] | | | [place] [address] | + + + | Home Phone | | + + + | Preferred Language | Unknown | + + + | Marital Status | | + + + | Restorationist Affiliation | NRP | + + + | Race | White | + + + | Ethnic Group | Not or | + + + Author + + + | Author | [facility] | + + + | Organization | [facility] | + + + | Address | Unknown | + + + | Phone | Unavailable | + + + Support + + + + + | Name | Relationship | Address | Phone | + + + + + | ELSA GOODE | ECON | [address] | | | | | [place] [address] | | + + + + + Care Team Providers + +------+ + | Care Radiation Protection Engineer Name | Role | Phone | [...] | 2019 | Encounter | Oncology at [place] | ,PhD [address] | | | | | for Health & Healing | [place], [place] | | | | | [address] | [address] | | | | | Mailcode: [place] | [phone] | | | | | for [facility] and | | | | | | [facility], [facility] 2 | | | | | | [place], [place] | | | | | | [address] | | | | | | [phone] | | | +--------+ + + + [...] | 2019 | | | PhD BARB [address] | | | | | | [place] | | | | | | [address] | | | | | | [phone] | | | | | | | | +--------+ + + + + | 11/21/ | Office | Hematology & | Toni Mccrary, | | | 2018 | Visit | Oncology | PhD BARB [address] | | | | | | [place] | | | | | | [address] | | | | | | [phone] | | | | | | | [...] Rd | | | | | | [place], [place] | | | | | | [address] | | | | | | [phone] | | | | | | | | +--------+ + + + + | 11/28/ | Appointment | Hematology & | Onc, [address] | | | 2018 | | Oncology | [place], | | | | | | [place] [address] | | +--------+ + + + + | 11/29/ | Office | Physical Therapy | Genna Villegas, PT | | | 2018 | Visit | | [address] | | | | | | [place], | | | | | | [place] [address] | | | | | | [phone] | | | | | | | | +--------+ + + + + | 12/12/ | Clinical | | | | | 2018 | Support | | | | | | Staff | | | | +--------+ + + + + | 12/12/ | Office | Hematology & | Taz Mcneal, | | | 2018 | Visit | Oncology | [place] | | | | | | [address] | | | | | | [place] | | | | | | [address] | | | | | | [phone] | | | | | | | | +--------+ + + + + | 12/12/ | Appointment | Hematology & | Onc, [address] | | | 2018 | | Oncology | [place] | | | | | | [place] [address] | | +--------+ + + + + as of this encounter Visit Diagnoses Not on filein this encounter"
--- OUTSIDE RECORDS SUMMARY | ~2018-11-11 | XMS | Clinical Summary ---
Demographics + + + | Address | [address] | | | [place] [address] | + + + | Home Phone | | + + + | Preferred Language | Unknown | + + + | Marital Status | Unknown | + + + | Sabianism Affiliation | Unknown | + + + | Race | Unknown | + + + | Ethnic Group | Unknown | + + + Author + + + | Author | [facility] | | | and [place] | + + + | Organization | [facility] | | | and [place] | + + + | Address | Unknown | + + + | Phone | Unavailable | + + + Care Team Providers + +------+ + | Care Prosthetic Dentist Name | Role | Phone | + +------+ + PP | Unavailable | + +------+ + Allergies Not on File Medications Not on file Active Problems Not on file Social History + +-------+ +--------+------+ | Tobacco Use | Types | Packs/Day | Years | Date | | | | | Used | | + +-------+ +--------+------+ | Never Assessed | | | | | + +-------+ +--------+------+ + + + | Sex Assigned at | Date Recorded | | | | + + + | Not on file | | + + + + + + + | Job Start Date | Occupation | Industry | + + + + | Not on file | Not on file | Not on file | + + + + + + + + | Travel History | Travel Start | Travel End | + + + + + + | No recent travel history available. | + + Plan of Treatment + + + + + | Health Maintenance | Due Date | Last Done | Comments | + + + + + | Vaccine: | | | | | Dtap/Tdap/Td (1 - | 7 | | | | Tdap) | | | | + + + + + | Vaccine: Zoster (1 | | | | | of 2) | 8 | | | + + + + + | Vaccine: | | | | | Pneumococcal 65+ | 3 | | | | Low/Medium Risk (1 | | | | | of 2 - PCV13) | | | | + + + + + | Vaccine: Influenza | | | | | (Season Ended) | 9 | | | + + + + + Results Not on filefrom Last 3 Months"
--- OUTSIDE RECORDS SUMMARY | ~2018-11-11 | XMS | Encounter Summary ---
Demographics + + + | Address | [address] | | | [place] [address] | + + + | Home Phone [...] | | | | | [place] [address] | | + + + + + Care Team Providers + +------+ + | Care Carbon Blocks Press Operator Name | Role | Phone | [...] | Oncology at [facility] | [address] [place], | | | | | [address] | [place] [address] | | | | | Mailcode: [place] | | | | | | for Health and | | | | | | Healing, [address] | | | | | | [place], [place] | | | | | | [address] | | | | | | [phone] | | | +--------+ + + + [...] of this encounter Progress Notes Mary August, JAY - 08/22/2018 9:00 AM PSTChemotherapy Nurse Note [...] & remote memory intact and 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 Refer to MAR and Onc Lines and Transfusions doc flowsheet for treatment details. in this encounter Plan of Treatment +--------+ + + + + | Date | Type | Specialty | Care Team | Description | +--------+ + + + + | 11/09/ | Procedure | Hematology & | | | 2018 | Pass | Oncology | | | +--------+ + + + + | 11/21/ | Appointment | Radiology | Toni Mccrary, | | | 2019 | | | PhD BARB [address] | | | | | | [place], [place] | | | | | | [address] | | | | | | [phone] | | | | | | | | +--------+ + + + + | 11/21/ | Office | Hematology & | Toni Mccrary, | | | 2018 | Visit | Oncology | PhD BARB [address] | | | | | | [place] | | | | | | [address] | | | | | | [phone] | | | | | | | [...] Rd | | | | | | [facility] [place] | | | | | | [address] | | | | | | [phone] | | | | | | | | +--------+ + + + + | 11/28/ | Appointment | Hematology & | Onc, Gen [address] | | | 2019 | | Oncology | [place], | | | | | | [place] [address] | | +--------+ + + + + | 11/29/ | Office | Physical Therapy | Genna Villegas PT | | | 2018 | Visit | | [address] | | | | | | [place], | | | | | | [place] [address] | | | | | | [phone] | | | | | | | | +--------+ + + + + | 12/12/ | Clinical | | | | | 2019 | Support | | | | | | Staff | | | | +--------+ + + + + | 12/12/ | Office | Hematology & | Taz Mcneal, | | | 2019 | Visit | Oncology | O[place] [address] [facility] | | | | | | [address] | | | | | | [place], [place] | | | | | | [address] | | | | | | [phone] | | | | | | | | +--------+ + + + + | 12/12/ | Appointment | Hematology & | Onc, Gen [address] | | | 2018 | | Oncology | [place] | | | | | | [place] [address] | | +--------+ + + + + [...] [facility] | [address] [facility] | [place] [address] | | | OF CARE TESTS | [...] + + | BARBARA OWEN | [address] [facility] | [place] [address] | | | OF CARE TESTS | | | | + + + + + MAGNESIUM, PLASMA (08/22/2018 9:15 AM) + +-------+ + + | Component | Value | Ref Range | Performed At | + +-------+ + + | MAGNESIUM,PLASMA | 2.3 | 1.6 - 2.6 mg/dL | [facility] | | | | | SERVICES, CORE | + +-------+ + + + + | Specimen | + + | Blood - Blood | + + + + + + + | Performing | Address | City/State/Zipcode | Phone Number | | Organization | | | | + + + + + | [facility] | [address] | [place] [address] | | | SERVICES, ELIS[place] | [address] [...] + | [facility] | [address] | [place] [address] | | | SERVICES, [place] | [address] | | | + + + + + INR (08/22/2018 9:15 AM) + +-------+ + + | Component | Value | Ref Range | Performed At | + +-------+ + + | INR | 1.08 | 0.90 - 1.20 INR | [facility] | | | | | SERVICES, CORE | + +-------+ + + + + | Specimen | + + | Blood - Blood | + + + + + | Narrative | Performed At | + + + | INR Therapeutic ranges for full anticoagulation: INR for | [facility] | | Venous Thromboembolism (2.0 - 3.0) INR INR | LABORATORY | | for most patients with mech. valves (2.5 - 3.5) INR | [place] | + + + + + + + + | Performing | Address | City/State/Zipcode | Phone Number | | Organization | | | | + + + + + | [facility] | [address] | [place] [address] | | | SERVICESELISHA | [address] | | | + + + + + LDH TOTAL, PLASMA (08/22/2018 9:15 AM) + +---------+ + + | Component | Value | Ref Range | Performed At | + +---------+ + + | LD TOTAL, PLASMA | 169 | <=250 U/L | [facility] | | | | | SERVICES, [...] | + + + + + | [facility] | [address] | [place] [address] | | | SERVICES, CORE | [address] | | | + + + + + APTT (ACT. PART. THROMBO TIME) (08/22/2018 9:15 AM) + +-------+ + + | Component | Value | Ref Range | Performed At | + +-------+ + + | APTT | 30.3 | 26.0 - 36.0 seconds | [facility] | | | | | EL[place] [...] | + + + + + | [facility] | [address] | [place] [address] | | | VALERI, ELISHA | [address] | | | + + + + + CANCER AG GI (), SERUM (08/22/2018 9:15 AM) + + + + + | Component | Value | Ref Range | Performed At | + + + + + | CANCER AG GI () | 9,458.1 (H) | <=37.0 U/mL | [facility] | | [facility] | | | VALERI, ELISHA | + + + + + + + | Specimen | + + | Blood - Blood | + + + + + + + | Performing | Address | City/State/Zipcode | Phone Number | | Organization | | | | + + + + + | [facility] | [address] | [place] [address] | | | SERVICES, CORE | [address] [...] ONCE, 1 dose, Wed | Instille | PST | | | | | [...]
--- OUTSIDE RECORDS SUMMARY | ~2018-11-11 | XMS | Encounter Summary ---
Demographics + + + | Address | [address] | | | [place] [address] | + + + | Home Phone [...] | | | | | [place] [address] | | + + + + + Care Team Providers + +------+ + | Care Filling Winder Name | Role | Phone | [...] | Documentati | Hematology/Medical | Rosemarie Galan, LEORA | Medical nutrition | | 2019 | on | [facility] | [address] | therapy | | | | [address] | [address] | | | | | Mailcode: Center | [place], [place] | | | | | [facility] Health and | [address] | | | | | Healing, [address] | | | | | | [place], [place] | | | | | | [address] | | | | | | [phone] | | | +--------+ + + + [...] [place] | | | | | | [address] | | | | | | [phone] | | | | | | | | +--------+ + + + + | 11/21/ | Office | Hematology & | Toni Mccrary, | | | 2018 | Visit | Oncology | PhD Ló[address] DAY | | | | | | [place] | | | | | | [address] | | | | | | [phone] | | | | | | | [...] Rd | | | | | | [place], [place] | | | | | | [address] | | | | | | [phone] | | | | | | | | +--------+ + + + + | 11/28/ | Appointment | Hematology & | [facility] [address] | | | 2019 | | Oncology | [place] | | | | | | [place] [address] | | +--------+ + + + + | 11/29/ | Office | Physical Therapy | Genna Villegas PT | | | 2019 | Visit | | [address] | | | | | | [place], | | | | | | [place] [address] | | | | | | [phone] | | | | | | | | +--------+ + + + + | 12/12/ | Clinical | | | | | 2018 | Support | | | | | | Staff | | | | +--------+ + + + + | 12/12/ | Office | Hematology & | Taz Mcneal, | | | 2018 | Visit | Oncology | [facility] [address] | | | | | | [address] | | | | | | [place] | | | | | | [address] | | | | | | [phone] | | | | | | | | +--------+ + + + + | 12/12/ | Appointment | Hematology & | [address] [facility] [address] | | | 2018 | | Oncology | [place] | | | | | | [place] [address] | | +--------+ + + + + as of this encounter Visit Diagnoses Not on filein this encounter"
--- OUTSIDE RECORDS SUMMARY | ~2018-11-11 | XMS | Encounter Summary ---
Demographics + + + | Address | [address] | | | [place] [address] | + + + | Home Phone | | + + + | Preferred Language | Unknown | + + + | Marital Status | | + + + | Tenriism Affiliation | NRP | + + + | Race | White | + + + | Ethnic Group | Not or | + + + Author + + + | Author | [facility] | + + + | Organization | [facility] | + + + | Address | Unknown | + + + | Phone | Unavailable | + + + Support + + + + + | Name | Relationship | Address | Phone | + + + + + | ELSA GOODE | ECON | [address] | | | | | [place] [address] | | + + + + + Care Team Providers + +------+ + | Care See Supervisor Name | Role | Phone | + +------+ + | Piotr Plummer MD | PCP | | + +------+ + Encounter Details +--------+ + + + + | Date | Type | Department | Care Team | Description | +--------+ + + + + | 08/28/ | Assembly Line Upholsterer | Hematology/Medical | Toni Mccrary, | | | 2019 | | [facility] [place] | ,PhD [address] | | | | | for Health & Healing | [place], [place] | | | | | [address] | [address] | | | | | Mailcode: [place] | [phone] | | | | | for Health and | | | | | | Healing, [address] | | | | | | [place], [place] | | | | | | [address] | | | | | | [phone] | | | +--------+ + + + [...] | | | | | | [place], [place] | | | | | | [address] | | | | | | [phone] | | | | | | | | +--------+ + + + + | 11/21/ | Office | Hematology & | Toni Mccrary, | | | 2018 | Visit | Oncology | PhD Mery [address] | | | | | | [place], [place] | | | | | | [address] | | | | | | [phone] | | | | | | | [...] [address] | | | | | | [place], [place] | | | | | | [address] | | | | | | [phone] | | | | | | | | +--------+ + + + + | 11/28/ | Appointment | Hematology & | Onc, [address] | | | 2019 | | Oncology | [place], | | | | | | [place] [address] | | +--------+ + + + + | 11/29/ | Office | Physical Therapy | Genna Villegas, PT | | | 2019 | Visit | | [address] | | | | | | [place], | | | | | | [place] [address] | | | | | | [phone] | | | | | | | | +--------+ + + + + | 12/12/ | Clinical | | | | | 2019 | Support | | | | | | Staff | | | | +--------+ + + + + | 12/12/ | Office | Hematology & | Taz Mcneal, | | | 2018 | Visit | Oncology | OLYA [address] [facility] | | | | | | [address] | | | | | | [place] | | | | | | [address] | | | | | | [phone] | | | | | | | | +--------+ + + + + | 12/12/ | Appointment | Hematology & | [address] | | | 2018 | | Oncology | [place] | | | | | | [place] [address] | | +--------+ + + + + as of this encounter Visit Diagnoses Not on filein this encounter"
--- OUTSIDE RECORDS SUMMARY | ~2018-11-11 | XMS | Encounter Summary ---
Demographics + + + | Address | [address] | | | [place] [address] | + + + | Home Phone | | + + + | Preferred Language | Unknown | + + + | Marital Status | | + + + | Evangelical Affiliation | NRP | + + + [...] | | | | | [place] [address] | | + + + + + Care Team Providers + +------+ + | Care Youtuber Name | Role | Phone | + [...] | 2019 | on | [facility] at [place] | ,PhD [address] | (Juliano ) | | | | for Health & Healing | [address] [place], [place] | | | | | [address] | [address] | | | | | Mailcode: [place] | [phone] | | | | | for Health and | | | | | | Healing, [address] | | | | | | [place], [place] | | | | | | [address] | | | | | | [phone] | | | +--------+ + + + [...] | | | | | | [place], [place] | | | | | | [address] | | | | | | [phone] | | | | | | | | +--------+ + + + + | 11/21/ | Office | Hematology & | Toni Mccrary, | | | 2018 | Visit | Oncology | PhD [address] | | | | | | [place], [place] | | | | | | [address] | | | | | | [phone] | | | | | | | [...] [address] | | | | | | [place], [place] | | | | | | [address] | | | | | | [phone] | | | | | | | | +--------+ + + + + | 11/28/ | Appointment | Hematology & | [address] | | | 2018 | | Oncology | [place], | | | | | | [place] [address] | | +--------+ + + + + | 11/29/ | Office | Physical Therapy | Genna Villegas PT | | | 2019 | Visit | | [address] | | | | | | [place], | | | | | | [place] [address] | | | | | | [phone] | | | | | | | [...] [place] | | | | | | [address] | | | | | | [phone] | | | | | | | | +--------+ + + + + | 12/12/ | Appointment | Hematology & | [address] | | | 2019 | | Oncology | [place] | | | | | | [place] [address] | | +--------+ + + + + as of this encounter Visit Diagnoses Not on filein this encounter"
--- OUTSIDE RECORDS SUMMARY | ~2018-11-11 | XMS | Encounter Summary ---
Demographics + + + | Address | [address] | | | [place] [address] | + + + | Home Phone [...] | | | | | [place] [address] | | + + + + + Care Team Providers + +------+ + | Care Administrator Of Home Health Name | Role | Phone | + [...] Hermann, | | | | | | Malignant | Toni, | | | | | | neoplasm of | ,PhD [address] | | | | | | pancreas, | [address] | | | | | | unspecified | [place], | | | | | | location of | [place] | | | | | | malignancy | [address] | | | | | | (HCC) | Phone: | | | | | | Procedures | [phone] | | | | | | CT CHEST, | Fax: | | | | | | ABDOMEN AND | [phone] | | | | | | PELVIS W IV | | | | | | | CONTRAST | | | + +--------+ + + + + Encounter Details +--------+ + + + + | Date | Type | Department | Care Team | Description | +--------+ + + + + | 11/09/ | Crawler Tractor Operator | Hematology/Medical | Toni Mccrary, | Malignant neoplasm | | 2019 | | [facility] at [place] | ,PhD [address] | of pancreas, | | | | for Health & Healing | [address] [place], [place] | unspecified location | | | | [address] | [address] | of malignancy (HCC) | | | | Mailcode: [place] | [phone] | (Primary Dx) | | | | for Health and | | | | | | Healing, [address] | | | | | | [place], [place] | | | | | | [address] | | | | | | [phone] | | | +--------+ + + + [...] | | | | | | [place], [place] | | | | | | [address] | | | | | | [phone] | | | | | | | | +--------+ + + + + | 11/21/ | Office | Hematology & | Toni Mccrary, | | | 2018 | Visit | Oncology | PhD [address] | | | | | | [place] [facility] [place] | | | | | | [address] | | | | | | [phone] | | | | | | | [...] [place] | | | | | | [address] | | | | | | [phone] | | | | | | | | +--------+ + + + + | 11/28/ | Appointment | Hematology & | Onc, [address] | | | 2019 | | Oncology | [place], | | | | | | [place] [address] | | +--------+ + + + + | 11/29/ | Office | Physical Therapy | Genna Villegas PT | | | 2018 | Visit | | [address] | | | | | | [place], | | | | | | [place] [address] | | | | | | [phone] | | | | | | | | +--------+ + + + + | 12/12/ | Clinical | | | | | 2019 | Support | | | | | | Staff | | | | +--------+ + + + + | 12/12/ | Office | Hematology & | Taz Mcneal, | | | 2018 | Visit | Oncology | OLY[place] [address] [facility] | | | | | | [address] | | | | | | [place], [place] | | | | | | [address] | | | | | | [phone] | | | | | | | | +--------+ + + + + | 12/12/ | Appointment | Hematology & | Onc, [address] | | | 2018 | | Oncology | [place] | | | | | | [place] [address] | | +--------+ + + + + + +--------+ + + | Name | Priori | Associated Diagnoses | Order Schedule | | | ty | | | + +--------+ + + | CT CHEST, ABDOMEN AND PELVIS W IV | Routin | Malignant neoplasm | Expected: 11/23/2018 | | CONTRAST | e | of pancreas, | (Approximate), | | | | unspecified location | Expires: 12/10/2019 | | | | of malignancy (HCC) | | + +--------+ + + as of this encounter Visit Diagnoses + + | Diagnosis | + + | Malignant neoplasm of pancreas, unspecified location of malignancy (HCC) - Primary | + +"
--- OUTSIDE RECORDS SUMMARY | ~2018-11-11 | XMS | Encounter Summary ---
Demographics + + + | Address | [address] | | | [place] [address] | + + + | Home Phone [...] | | | | | [place] [address] | | + + + + + Care Team Providers + +------+ + | Care Grinder Dresser Name | Role | Phone | + +------+ + | Piotr Plummer MD | PCP | | + +------+ + Encounter Details +--------+ + + + + | Date | Type | Department | Care Team | Description | +--------+ + + + + | 10/02/ | Bank Credit Card Collection Clerk | Hematology/Medical | Toni Mccrary, | | | 2019 | | [facility] at [place] | ,PhD [address] | | | | | for Health & Healing | [place], [place] | | | | | [address] | [address] | | | | | Mailcode: [place] | [phone] | | | | | for Health and | | | | | | Healing, [address] | | | | | | [place], [place] | | | | | | [address] | | | | | | [phone] | | | +--------+ + + + [...] | | | | | | [place], [place] | | | | | | [address] | | | | | | [phone] | | | | | | | | +--------+ + + + + | 11/21/ | Office | Hematology & | Toni Mccrary, | | | 2018 | Visit | Oncology | PhD Mery [address] | | | | | | [place], [place] | | | | | | [address] | | | | | | [phone] | | | | | | | [...] Rd | | | | | | [place], [place] | | | | | | [address] | | | | | | [phone] | | | | | | | | +--------+ + + + + | 11/28/ | Appointment | Hematology & | Onc, [address] | | | 2019 | | Oncology | [place], | | | | | | [place] [address] | | +--------+ + + + + | 11/29/ | Office | Physical Therapy | Genna Villegas, PT | | | 2019 | Visit | | [address] | | | | | | [place], | | | | | | [place] [address] | | | | | | [phone] | | | | | | | | +--------+ + + + + | 12/12/ | Clinical | | | | | 2019 | Support | | | | | | Staff | | | | +--------+ + + + + | 12/12/ | Office | Hematology & | Taz Mcneal, | | | 2018 | Visit | Oncology | OLYA [address] [facility] | | | | | | [address] | | | | | | [place] | | | | | | [address] | | | | | | [phone] | | | | | | | | +--------+ + + + + | 12/12/ | Appointment | Hematology & | [address] | | | 2018 | | Oncology | [place] | | | | | | [place] [address] | | +--------+ + + + + as of this encounter Visit Diagnoses Not on filein this encounter"
--- OUTSIDE RECORDS SUMMARY | ~2018-11-11 | XMS | Encounter Summary ---
Demographics + + + | Address | [address] | | | [place] [address] | + + + | Home Phone [...] | | | | | [place] [address] | | + + + + + Care Team Providers + +------+ + | Care Wildland Fire Fighter Name | Role | Phone | + [...] + + + + | 11/09/ | Telephone | Hematology/Medical | Toni Mccrary, | Scheduling | | 2019 | | [facility]cology at [place] | ,PhD [address] | | | | | for Health & Healing | [place] [facility] [place] | | | | | [address] | [address] | | | | | Mailcode: [place] | [phone] | | | | | for Health and | | | | | | [place] | | | | | | [place], [place] | | | | | | [address] | | | | | | [phone] | | | +--------+ + + + [...] | | | | | [place] | | | | | | [address] | | | | | | [phone] | | | | | | | | +--------+ + + + + | 11/21/ | Office | Hematology & | Toni Mccrary, | | | 2018 | Visit | Oncology | PhD L[address] | | | | | | [place] | | | | | | [address] | | | | | | [phone] | | | | | | | [...] Rd | | | | | | [place] | | | | | | [address] | | | | | | [phone] | | | | | | | | +--------+ + + + + | 11/28/ | Appointment | Hematology & | [address] | | | 2019 | | Oncology | [place], | | | | | | [place] [address] | | +--------+ + + + + | 11/29/ | Office | Physical Therapy | Genna Villegas, PT | | | 2019 | Visit | | [address] | | | | | | [place], | | | | | | [place] [address] | | | | | | [phone] | | | | | | | | +--------+ + + + + | 12/12/ | Clinical | | | | | 2018 | Support | | | | | | Staff | | | | +--------+ + + + + | 12/12/ | Office | Hematology & | Taz Mcneal, | | | 2018 | Visit | Oncology | [address] | | | | | | [address] | | | | | | [place] | | | | | | [address] | | | | | | [phone] | | | | | | | | +--------+ + + + + | 12/12/ | Appointment | Hematology & | [address] | | | 2019 | | Oncology | [place] | | | | | | [place] [address] | | +--------+ + + + + as of this encounter Visit Diagnoses Not on filein this encounter"
--- OUTSIDE RECORDS SUMMARY | ~2018-11-11 | XMS | Encounter Summary ---
Demographics + + + | Address | [address] | | | [place] [address] | + + + | Home Phone [...] | | | | | [place] [address] | | + + + + + Care Team Providers + +------+ + | Care Furnace Filler Name | Role | Phone | + +------+ + | Piotr Plummer MD | PCP | | + +------+ + Encounter Details +--------+ + + + + | Date | Type | Department | Care Team | Description | +--------+ + + + + | 10/16/ | Power Tool Repairer | Hematology/Medical | Toni Mccrary, | | | 2019 | | [facility] at [place] | ,PhD [address] | | | | | for Health & Healing | [place], [place] | | | | | [address] | [address] | | | | | Mailcode: [place] | [phone] | | | | | for Health and | | | | | | Healing, [address] | | | | | | [place], [place] | | | | | | [address] | | | | | | [phone] | | | +--------+ + + + [...] | | | | | | [place], [place] | | | | | | [address] | | | | | | [phone] | | | | | | | | +--------+ + + + + | 11/21/ | Office | Hematology & | Toni Mccrary, | | | 2018 | Visit | Oncology | PhD Mery [address] | | | | | | [place], [place] | | | | | | [address] | | | | | | [phone] | | | | | | | [...] Rd | | | | | | [place], [place] | | | | | | [address] | | | | | | [phone] | | | | | | | | +--------+ + + + + | 11/28/ | Appointment | Hematology & | Onc, [address] | | | 2019 | | Oncology | [place], | | | | | | [place] [address] | | +--------+ + + + + | 11/29/ | Office | Physical Therapy | Genna Villegas, PT | | | 2019 | Visit | | [address] | | | | | | [place], | | | | | | [place] [address] | | | | | | [phone] | | | | | | | | +--------+ + + + + | 12/12/ | Clinical | | | | | 2019 | Support | | | | | | Staff | | | | +--------+ + + + + | 12/12/ | Office | Hematology & | Taz Mcneal, | | | 2018 | Visit | Oncology | OLYA [address] [facility] | | | | | | [address] | | | | | | [place] | | | | | | [address] | | | | | | [phone] | | | | | | | | +--------+ + + + + | 12/12/ | Appointment | Hematology & | [address] | | | 2018 | | Oncology | [place] | | | | | | [place] [address] | | +--------+ + + + + as of this encounter Visit Diagnoses Not on filein this encounter"
--- OUTSIDE RECORDS SUMMARY | ~2018-11-11 | XMS | Encounter Summary ---
Demographics + + + | Address | [address] | | | [place] [address] | + + + | Home Phone | | + + + | Preferred Language | Unknown | + + + | Marital Status | | + + + | Mormonism Affiliation | NRP | + + + [...] | | | | | [place] [address] | | + + + + + Care Team Providers + +------+ + | Care Advertising Sales Agent Name | Role | Phone | + +------+ + | Piotr Plummer MD | PCP | | + +------+ + Encounter Details +--------+ + + + + | Date | Type | Department | Care Team | Description | +--------+ + + + + | 10/31/ | MyChart | Hematology/Medical | Taz Mcneal, | RE:Prescriptions | | 2019 | Encounter | [facility] at [place] | PACristi [address] | | | | | for Health & Healing | [address] | | | | | [address] | [place], [place] | | | | | Mailcode: [place] | [address] | | | | | for Health and | [phone] | | | | | [facility] [address] | | | | | | [place], [place] | | | | | | [address] | | | | | | [phone] | | | +--------+ + + + [...] [place] | | | | | | [address] | | | | | | [phone] | | | | | | | | +--------+ + + + + | 11/21/ | Office | Hematology & | Toni Mccrary, | | | 2018 | Visit | Oncology | MDPhD [address] | | | | | | [place] | | | | | | [address] | | | | | | [phone] | | | | | | | [...] Rd | | | | | | [place], [place] | | | | | | [address] | | | | | | [phone] | | | | | | | | +--------+ + + + + | 11/28/ | Appointment | Hematology & | Onc, [address] | | | 2019 | | Oncology | [place], | | | | | | [place] [address] | | +--------+ + + + + | 11/29/ | Office | Physical Therapy | Genna Villegas, PT | | | 2019 | Visit | | [address] | | | | | | [place], | | | | | | [place] [address] | | | | | | [phone] | | | | | | | | +--------+ + + + + | 12/12/ | Clinical | | | | | 2019 | Support | | | | | | Staff | | | | +--------+ + + + + | 12/12/ | Office | Hematology & | Taz Mcneal, | | | 2018 | Visit | Oncology | OLYA [address] [facility] | | | | | | [address] | | | | | | [place] | | | | | | [address] | | | | | | [phone] | | | | | | | | +--------+ + + + + | 12/12/ | Appointment | Hematology & | Onc, [address] | | | 2018 | | Oncology | [place] | | | | | | [place] [address] | | +--------+ + + + + as of this encounter Visit Diagnoses Not on filein this encounter"
--- OUTSIDE RECORDS SUMMARY | ~2018-11-11 | XMS | Encounter Summary ---
Demographics + + + | Address | [address] | | | [place] [address] | + + + | Home Phone [...] | | | | | [place] [address] | | + + + + + Care Team Providers + +------+ + | Care Tamping Machine Operator Road Forms Name | Role | Phone | + +------+ + | Piotr Plummer MD | PCP | | + +------+ + Reason for Visit + + + | Reason | Comments | + + + | Medication Education | First cycle antiemetic teaching | + + + Encounter Details +--------+ + + + + | Date | Type | Department | Care Team | Description | +--------+ + + + + | 08/22/ | Documentati | Hematology/Medical | Khaldia Mckeon, | Medication Education | | 2019 | on | [facility]cology at [place] | PharmD [address] | (First cycle | | | | for Health & Healing | [address] | antiemetic teaching) | | | | [address] | [place], [place] | | | | | Mailcode: [place] | [address] | | | | | for Health and | | | | | | Healing, [address] | | | | | | [place], [place] | | | | | | [address] | | | | | | [phone] | | | +--------+ + + + [...] [place] | | | | | | [address] | | | | | | [phone] | | | | | | | | +--------+ + + + + | 11/21/ | Office | Hematology & | Toni Mccrary, | | | 2019 | Visit | Oncology | PhD [address] | | | | | | [place] | | | | | | [address] | | | | | | [phone] | | | | | | | | +--------+ + + + + | 11/28/ | Clinical | | | | | 2018 | Support | | | | | | Staff | | | | +--------+ + + + + | 11/28/ | Office | Hematology & | Taz Mcneal, | | | 2018 | Visit | Oncology | OLYA [address] | | | | | | [address] | | | | | | [place] | | | | | | [address] | | | | | | [phone] | | | | | | | | +--------+ + + + + | 11/28/ | Appointment | Hematology & | Onc, [address] | | | 2019 | | Oncology | [place] | | | | | | [place] [address] | | +--------+ + + + + | 11/29/ | Office | Physical Therapy | Genna Villegas, PT | | | 2019 | Visit | | [address] | | | | | | [place], | | | | | | [place] [address] | | | | | | [phone] | | | | | | | [...] | | | | | [facility] [place] | | | | | | [address] | | | | | | [phone] | | | | | | | | +--------+ + + + + | 12/12/ | Appointment | Hematology & | [address] | | | 2018 | | Oncology | [place], | | | | | | [place] [address] | | +--------+ + + + + as of this encounter Visit Diagnoses Not on filein this encounter"
--- OUTSIDE RECORDS SUMMARY | ~2018-11-11 | XMS | Encounter Summary ---
Demographics + + + | Address | [address] | | | [place] [address] | + + + | Home Phone [...] | | | | | [place] [address] | | + + + + + Care Team Providers + +------+ + | Care Celluloid Trimmer Name | Role | Phone | + [...] | 2019 | Encounter | [facility] at [place] | MICHELE,ACHPN [address] | | | | | for Health & Healing | [address] | | | | | [address] | [place], [place] | | | | | Mailcode: [place] | [address] | | | | | for Health and | [phone] | | | | | Healing, [facility] [address] | | | | | | [place], [place] | | | | | | [address] | | | | | | [phone] | | | +--------+ + + + [...] | | | | | | [place], [place] | | | | | | [address] | | | | | | [phone] | | | | | | | | +--------+ + + + + | 11/21/ | Office | Hematology & | Toni Mccrary, | | | 2018 | Visit | Oncology | PhD [address] | | | | | | [place], [place] | | | | | | [address] | | | | | | [phone] | | | | | | | [...] Rd | | | | | | [place], [place] | | | | | | [address] | | | | | | [phone] | | | | | | | | +--------+ + + + + | 11/28/ | Appointment | Hematology & | [address] | | | 2018 | | Oncology | [place], | | | | | | [place] [address] | | +--------+ + + + + | 11/29/ | Office | Physical Therapy | Genna Villegas PT | | | 2018 | Visit | | [address] | | | | | | [place], | | | | | | [place] [address] | | | | | | [phone] | | | | | | | [...] [place] | | | | | | [address] | | | | | | [phone] | | | | | | | | +--------+ + + + + | 12/12/ | Appointment | Hematology & | [address] | | | 2018 | | Oncology | [place] | | | | | | [place] [address] | | +--------+ + + + + as of this encounter Visit Diagnoses Not on filein this encounter"
--- OUTSIDE RECORDS SUMMARY | ~2018-11-11 | XMS | Encounter Summary ---
Demographics + + + | Address | [address] | | | [place] [address] | + + + | Home Phone [...] | | | | | [place] [address] | | + + + + + Care Team Providers + +------+ + | Care Monitoring Specialist Name | Role | Phone | [...] | 2019 | on | [facility] at [place] | ,PhD [address] | xT) | | | | for Health & Healing | Ave [place], [place] | | | | | [address] | [address] | | | | | Mailcode: [place] | [phone] | | | | | for Health and | | | | | | Healing, [address] | | | | | | [place], [place] | | | | | | [address] | | | | | | [phone] | | | +--------+ + + + [...] | | | | | [place] | | | | | | [address] | | | | | | [phone] | | | | | | | | +--------+ + + + + | 11/21/ | Office | Hematology & | Toni Mccarry, | | | 2018 | Visit | Oncology | PhD [address] | | | | | | [place] | | | | | | [address] | | | | | | [phone] | | | | | | | [...] [address] | | | | | | [place], [place] | | | | | | [address] | | | | | | [phone] | | | | | | | | +--------+ + + + + | 11/28/ | Appointment | Hematology & | Onc, [address] | | | 2019 | | Oncology | [place] | | | | | | [place] [address] | | +--------+ + + + + | 11/29/ | Office | Physical Therapy | Genna Villegas PT | | | 2019 | Visit | | [address] | | | | | | [place], | | | | | | [place] [address] | | | | | | [phone] | | | | | | | [...] [place] | | | | | | [address] | | | | | | [phone] | | | | | | | | +--------+ + + + + | 12/12/ | Appointment | Hematology & | [facility] [address] | | | 2019 | | Oncology | [place] | | | | | | [place] [address] | | +--------+ + + + + as of this encounter Visit Diagnoses Not on filein this encounter"
--- OUTSIDE RECORDS SUMMARY | ~2018-11-11 | XMS | Encounter Summary ---
Demographics + + + | Address | [address] | | | [place] [address] | + + + | Home Phone | | + + + | Preferred Language | Unknown | + + + | Marital Status | | + + + | Holiness Affiliation | NRP | + + + [...] | | | | | [place] [address] | | + + + + + Care Team Providers + +------+ + | Care Sports Therapist Name | Role | Phone | + +------+ + | Piotr Plummer MD | PCP | | + +------+ + Encounter Details +--------+ + + + + | Date | Type | Department | Care Team | Description | +--------+ + + + + | 10/18/ | Ditch Cleaner | Hematology/Medical | Toni Mccrary, | | | 2019 | | [facility] [place] | ,PhD [address] | | | | | for Health [facility]aling | [place], [place] | | | | | [address] | [address] | | | | | Mailcode: [place] | [phone] | | | | | for Health and | | | | | | Healing, [address] | | | | | | [place], [place] | | | | | | [address] | | | | | | [phone] | | | +--------+ + + + [...] | | | | | | [place], [place] | | | | | | [address] | | | | | | [phone] | | | | | | | | +--------+ + + + + | 11/21/ | Office | Hematology & | Toni Mccrary, | | | 2018 | Visit | Oncology | PhD Mery [address] | | | | | | [place], [place] | | | | | | [address] | | | | | | [phone] | | | | | | | [...] [address] | | | | | | [place], [place] | | | | | | [address] | | | | | | [phone] | | | | | | | | +--------+ + + + + | 11/28/ | Appointment | Hematology & | Onc, Gen [address] | | | 2019 | | Oncology | [place], | | | | | | [place] [address] | | +--------+ + + + + | 11/29/ | Office | Physical Therapy | Genna Villegas, PT | | | 2019 | Visit | | [address] | | | | | | [place], | | | | | | [place] [address] | | | | | | [phone] | | | | | | | [...] [place] | | | | | | [address] | | | | | | [phone] | | | | | | | | +--------+ + + + + | 12/12/ | Appointment | Hematology & | [address] | | | 2018 | | Oncology | [place] | | | | | | [place] [address] | | +--------+ + + + + as of this encounter Visit Diagnoses Not on filein this encounter"
--- OUTSIDE RECORDS SUMMARY | ~2018-11-11 | XMS | Encounter Summary ---
Demographics + + + | Address | [address] | | | [place] [address] | + + + | Home Phone [...] + + + | Author | [facility] | + + + | Organization | [facility] | + + + | Address | Unknown | + + + | Phone | Unavailable | + + + Support + + + + + | Name | Relationship | Address | Phone | + + + + + | ELSA GOODE | ECON | [address] | | | | | [place] [address] | | + + + + + Care Team Providers + +------+ + | Care Stenciling Machine Tender Name | Role | Phone | [...] | | 2019 | | [facility] [place] | | (distress screening) | | | | [facility]aling | | | | | | [address] | | | | | | Mailcode: [place] | | | | | | for Health and | | | | | | Healing, Building | | | | | | [place], [place] | | | | | | [address] | | | | | | [phone] | | | +--------+ + + + [...] | | | | | [place] | | | | | | [address] | | | | | | [phone] | | | | | | | | +--------+ + + + + | 11/21/ | Office | Hematology & | Toni Mccrary, | | | 2018 | Visit | Oncology | PhD [address] | | | | | | [place] | | | | | | [address] | | | | | | [phone] | | | | | | | [...] [place] | | | | | | [address] | | | | | | [phone] | | | | | | | | +--------+ + + + + | 11/28/ | Appointment | Hematology & | Onc, Gen [address] | | | 2019 | | Oncology | [place] | | | | | | [place] [address] | | +--------+ + + + + | 11/29/ | Office | Physical Therapy | Genna Villegas PT | | | 2019 | Visit | | [address] | | | | | | [place], | | | | | | [place] [address] | | | | | | [phone] | | | | | | | [...] [place] | | | | | | [address] | | | | | | [phone] | | | | | | | | +--------+ + + + + | 12/12/ | Appointment | Hematology & | [address] | | | 2018 | | Oncology | [place] | | | | | | [place] [address] | | +--------+ + + + + as of this encounter Visit Diagnoses Not on filein this encounter"
--- OUTSIDE RECORDS SUMMARY | ~2018-11-11 | XMS | Encounter Summary ---
Demographics + + + | Address | [address] | | | [place] [address] | + + + | Home Phone [...] + + + | Author | [facility] | + + + | Organization | [facility] | + + + | Address | Unknown | + + + | Phone | Unavailable | + + + Support + + + + + | Name | Relationship | Address | Phone | + + + + + | ELSA GOODE | ECON | [address] | | | | | [place] [address] | | + + + + + Care Team Providers + +------+ + | Care Cigar Head Holer Name | Role | Phone | + +------+ + | Piotr Plummer MD | PCP | | + +------+ + Encounter Details +--------+ + + + + | Date | Type | Department | Care Team | Description | +--------+ + + + + | 09/18/ | Documentati | Hematology/Medical | Toni Mccrary, | | | 2019 | on | [facility] [place] | ,PhD [address] | | | | | for Health & Healing | [place], [place] | | | | | [address] | [address] | | | | | Mailcode: [place] | [phone] | | | | | for Health and | | | | | | Healing, [address] | | | | | | [place], [place] | | | | | | [address] | | | | | | [phone] | | | +--------+ + + + [...] [address] | | | | | | [place], [place] | | | | | | [address] | | | | | | [phone] | | | | | | | | +--------+ + + + + | 11/21/ | Office | Hematology & | Toni Mccrary, | | | 2018 | Visit | Oncology | MDPhD [address] | | | | | | [place], [place] | | | | | | [address] | | | | | | [phone] | | | | | | | [...] Rd | | | | | | [place], [place] | | | | | | [address] | | | | | | [phone] | | | | | | | | +--------+ + + + + | 11/28/ | Appointment | Hematology & | Onc, Gen [address] | | | 2019 | | Oncology | [place], | | | | | | [place] [address] | | +--------+ + + + + | 11/29/ | Office | Physical Therapy | Genna Villegas, PT | | | 2019 | Visit | | [address] | | | | | | [place], | | | | | | [place] [address] | | | | | | [phone] | | | | | | | | +--------+ + + + + | 12/12/ | Clinical | | | | | 2019 | Support | | | | | | Staff | | | | +--------+ + + + + | 12/12/ | Office | Hematology & | Taz Mcneal, | | | 2018 | Visit | Oncology | [place] [address] [facility] | | | | | | [address] | | | | | | [place] | | | | | | [address] | | | | | | [phone] | | | | | | | | +--------+ + + + + | 12/12/ | Appointment | Hematology & | [address] | | | 2018 | | Oncology | [place] | | | | | | [place] [address] | | +--------+ + + + + as of this encounter Visit Diagnoses Not on filein this encounter"
--- OUTSIDE RECORDS SUMMARY | ~2018-11-11 | XMS | Encounter Summary ---
Demographics + + + | Address | [address] | | | [place] [address] | + + + | Home Phone [...] | | | | | [place] [address] | | + + + + + Care Team Providers + +------+ + | Care Seafood Packer Name | Role | Phone | + [...] + + + + | 10/23/ | Anesthesia | Endoscopic | Darlin Perkins | | | 2019 | Event | Procedural Unit at | D, DDS [address] [facility] | | | | | [address]iel [address] | | | | | [address] | [place], [place] | | | | | [facility] Mailcode: | [address] | | | | | [id number] | [phone] | | | | | [address] | | | | | | [place], [place] | | | | | | [address] | | | | | | [phone] | | | +--------+ + + + + Anesthesia Record + + + + + | Procedure Name | Responsible | Anesthesia Start | Anesthesia Stop Time | | | Anesthesiologist | Time | | + + + + + | ERCP | Candelario Malhotra MD | 10/23/18904 | 10/23/18 1027 | + + + + + +----+---+ + + | Da | T | Event | Comment | | te | i | | | | | m | | | | | e | | | +----+---+ + + | 04 | 0 | An Start | | | /0 | 9 | | | | 9/ | 0 | | | | 20 | 5 | | | | 19 | | | | +----+---+ + + | | 0 | Pt. Check | Prior to anesthesia start, pt. Identified, examined, chart | | | 9 | | reviewed, PARQ held, anesthetic plan made or approved by | | | 0 | | attending anesthesiologist. NPO status confirmed as appropriate | | | 8 | | for procedure Preoperative evaluation: unchanged | +----+---+ + + | | 0 | Eq Check | Anesthesia machine checked Equipment verified | | | 9 | | | | | 1 | | | | | 2 | | | +----+---+ + + | | 0 | Vitals | Monitors applied Vital signs checked Patient ready for anesthesia | | | 9 | Checked | | | | 1 | | | | | 2 | | | +----+---+ + + | | 0 | An Start | | | | 9 | Data | | | | 1 | | | | | 2 | | | +----+---+ + + | | 0 | ETT | | | | 9 | | | | | 2 | | | | | 0 | | | +----+---+ + + | | 0 | Ready | | | | 9 | | | | | 2 | | | | | 2 | | | +----+---+ + + | | 0 | Abx held | Not indicated for this procedure | | | 9 | Medical or | | | | 2 | Surgical | | | | 5 | Reason | | +----+---+ + + | | 0 | Incision | | | | 9 | | | | | 3 | | | | | 4 | | | +----+---+ + + | | 1 | Surgery end | | | | 0 | | | | | 0 | | | | | 9 | | | +----+---+ + + | | 1 | An Extubate | Neuromuscular function Intact. Pharynx suctioned. Patient obeys | | | 0 | | commands. Adequate pulmonary mechanics. | | | 2 | | | | | 0 | | | +----+---+ + + | | 1 | an stop | | | | 0 | data | | | | 2 | | | | | 0 | | | +----+---+ + + | | 1 | PACU Rpt | | | | 0 | Given | | | | 2 | | | | | 7 | | | +----+---+ + + | | 1 | Anesthesia | | | | 0 | End | | | | 2 | | | | | 7 | | | +----+---+ + + | | 1 | Post-Op | | | | 0 | Page | | | | 4 | | | | | 5 | | | +----+---+ + + +------+ | Meds | +------+ + +---------+ | Name | Total | + +---------+ | propofol | 100 mg | + +---------+ | succinylcholine | 170 mg | + +---------+ | fentaNYL | 100 mcg | + +---------+ | PHENYLEPHrine | 700 mcg | + +---------+ | dexamethasone | 4 mg | + +---------+ | ondansetron | 4 mg | + +---------+ | glucagon (GLUCAGEN) injection | 0.5 mg | + +---------+ | lactated ringers IV | 500 mL | + +---------+ + + | Name | + + | Insp Sevo | + + | Et Sevo | + + + + | No [...] +--------+ + + + | PA | 08/28/18; 913; Dr. Avalos; | 08/28/18913 by Guido | | | Cathet | Right; Medial; Chest; 8 Fr. (8fr | Marcell, RT | | | er - | SL smart port); [id number] REF | | | | Single | [id number] | | | | | | | | | Infusi | | | | | on | | | | | Port | | | | +--------+ + + + | Port/P | 08/28/18; 1200; Other (Comment); | 08/28/18 1200 by | | | ortaca | Right; Chest portacath; Single | Tami Luong RN | | | th | | | | +--------+ + + + | Port/P | 08/28/18; Right; Chest portacath; | 08/28/18 0000 by | 10/23/18 1235 by | | orarnulfo | Single; 10/23/18; 1235 | Laz Barahona RN | Celia Vilchis RN | | th | | | | +--------+ + + + | ETT | 10/23/18; 919 (created via | 10/23/18919 by | 10/23/181019 by | | | procedure documentation); 6.5; | Darlin Perkins, | Candelario Malhotra MD | | | Oral; Cuffed; 10/23/18; 1020 | DDS | | +--------+ + + + in [...] | | | | | | [place] | | | | | | [address] | | | | | | [phone] | | | | | | | | +--------+ + + + + | 11/21/ | Office | Hematology & | Toni Mccrary, | | | 2018 | Visit | Oncology | PhD López ADY | | | | | | [place] | | | | | | [address] | | | | | | [phone] | | | | | | | [...] Rd | | | | | | [facility] [place] | | | | | | [address] | | | | | | [phone] | | | | | | | | +--------+ + + + + | 11/28/ | Appointment | Hematology & | Onc, Gen [address] | | | 2019 | | Oncology | [place], | | | | | | [place] [address] | | +--------+ + + + + | 11/29/ | Office | Physical Therapy | Genna Villegas PT | | | 2019 | Visit | | [address] | | | | | | [place], | | | | | | [place] [address] | | | | | | [phone] | | | | | | | | +--------+ + + + + | 12/12/ | Clinical | | | | | 2018 | Support | | | | | | Staff | | | | +--------+ + + + + | 12/12/ | Office | Hematology & | Taz Mcneal, | | | 2018 | Visit | Oncology | [place] [address] | | | | | | [address] | | | | | | [place] | | | | | | [address] | | | | | | [phone] | | | | | | | | +--------+ + + + + | 12/12/ | Appointment | Hematology & | Gen [address] | | | 2018 | | Oncology | [place] | | | | | | [place] [address] | | +--------+ + + + + as of this encounter Genie MCGILL (10/23/2018 9:55 AM) + + + | [...] NARRATIVE Attending physically present Authorized by CANDELARIO MALHOTRA | | | E Performed by DARLIN [...] or tongue. | | + + + in this encounter Visit Diagnoses Not on filein this encounter Administered Medications + +--------+ +------+------+------+ | Medication Order | MAR | Action | Dose | Rate | Site | | | Action | Date | | | | + +--------+ +------+------+------+ | dexamethasone (DECADRON) | Given | 10/23/2018 | 4 mg | | | | injection INTRAPROCEDURE PRN, | | 09:58 | | | | | Starting Mon10/23/18 at 0958, | | PDT | | | | | Until Mon10/23/18 at 1020 | | | | | | + +--------+ +------+------+------+ +---+---+ | | | +---+---+ + +-------+ +---------+---+---+ | fentaNYL (SUBLIMAZE) injection | Given | 10/23/2018 | 100 mcg | | | | INTRAPROCEDURE PRN, Starting Mon | | 09:14 | | | | | 10/23/18 at 0914, Until Mon10/23/18 | | PDT | | | | | at 1020 | | | | | | + +-------+ +---------+---+---+ +---+---+ | | | +---+---+ + +-------+ +---------+---+---+ | glucagon (GLUCAGEN) injection | Given | 10/23/2018 | 0.25 mg | | | | INTRAPROCEDURE PRN, Starting Mon | | 09:47 | | | | | 10/23/18 at 0951, Until Mon10/23/18 | | PDT | | | | | at 1020 | | | | | | + +-------+ +---------+---+---+ +-------+ +---------+---+---+ | Given | 10/23/2018 | 0.25 mg | | | | | 09:51 | | | | | | PDT | | | | +-------+ +---------+---+---+ +---+---+ [...] | ondansetron (ZOFRAN) injection | Given | 10/23/2018 | 4 mg | | | | INTRAPROCEDURE PRN, Starting Tue | | 09:58 | | | | | 10/23/18 at 0958, Until 10/23/18 | | PDT | | | | | at 1020 | | | | | | + +-------+ +------+---+---+ +---+---+ | | | +---+---+ + +-------+ +---------+---+---+ | PHENYLEPHrine 100 mcg/mL IV | Given | 10/23/2018 | 100 mcg | | | | syringe INTRAPROCEDURE PRN, | | 09:34 | | | | | Starting 10/23/18 at 0952, | | PDT | | | | | Until 10/23/18 at 1020 | | | | | | + +-------+ +---------+---+---+ +-------+ +---------+---+---+ | Given | 10/23/2018 | 100 mcg | | | | | 09:51 | | | | | | PDT | | | | +-------+ +---------+---+---+ | Given | 10/23/2018 | 100 mcg | | | | | 09:52 | | | | | | PDT | | | | +-------+ +---------+---+---+ +---+---+ | | | +---+---+ + +-------+ +-------+---+---+ | propofol (DIPRIVAN) injection | Given | 10/23/2018 | 50 mg | | | | INTRAPROCEDURE PRN, Starting Tue | | 09:15 | | | | | 10/23/18 at 0915, Until e 10/23/18 | | PDT | | | | | at 1020 | | | | | | + +-------+ +-------+---+---+ +-------+ +-------+---+---+ | Given | 10/23/2018 | 50 mg | | | | | 09:17 | | | | | | PDT | | | | +-------+ +-------+---+---+ +---+---+ | | | +---+---+ + +-------+ +--------+---+---+ | succinylcholine (ANECTINE) | Given | 10/23/2018 | 120 mg | | | | injection INTRAPROCEDURE PRN, | | 09:17 | | | | | Starting 10/23/18 at 0917, | | PDT | | | | | Until Mon10/23/18 at 1020 | | | | | | + +-------+ +--------+---+---+ +-------+ +-------+---+---+ | Given | 10/23/2018 | 50 mg | | | | | 09:19 | | | | | | PDT | | | | +-------+ +-------+---+---+ +---+---+ | | | +---+---+ in this encounter"
--- OUTSIDE RECORDS SUMMARY | ~2018-11-11 | XMS | Encounter Summary ---
Demographics + + + | Address | [address] | | | [place] [address] | + + + | Home Phone [...] | | | | | [place] [address] | | + + + + + Care Team Providers + +------+ + | Care Scale Reclamation Tender Name | Role | Phone | [...] | | 2019 | | [facility] [place] | ,PhD [address] | Request (apixaban 5 | | | | for Health & Healing | [place], [place] | mg (74 tabs) oral | | | | [address] | [address] | tablets,dose pack) | | | | Mailcode: [place] | [phone] | | | | | for Health and | | | | | | Healing, [address] | | | | | | [place], [place] | | | | | | [address] | | | | | | [phone] | | | +--------+ + + + [...] | | | | | | [place], [place] | | | | | | [address] | | | | | | [phone] | | | | | | | | +--------+ + + + + | 11/21/ | Office | Hematology & | Toni Mccrary, | | | 2019 | Visit | Oncology | PhD BARB [address] | | | | | | [place], [place] | | | | | | [address] | | | | | | [phone] | | | | | | | | +--------+ + + + + | 11/28/ | Clinical | | | | | 2018 | Support | | | | | | Staff | | | | +--------+ + + + + | 11/28/ | Office | Hematology & | Taz Mcenal, | | | 2018 | Visit | Oncology | [place] [address] | | | | | | [address] | | | | | | [place], [place] | | | | | | [address] | | | | | | [phone] | | | | | | | | +--------+ + + + + | 11/28/ | Appointment | Hematology & | Gen Elizabeth [address] | | | 2018 | | Oncology | [place] | | | | | | [place] [address] | | +--------+ + + + + | 11/29/ | Office | Physical Therapy | Genna Villegas PT | | | 2019 | Visit | | [address] | | | | | | [place], | | | | | | [place] [address] | | | | | | [phone] | | | | | | | [address] | | | | | | [place], [place] | | | | | | [address] | | | | | | [phone] | | | | | | | | +--------+ + + + + | 12/12/ | Appointment | Hematology & | Onc, Gen [address] | | | 2019 | | Oncology | [place], | | | | | | [place] [address] | | +--------+ + + + + as of this encounter Visit Diagnoses Not on filein this encounter"
--- OUTSIDE RECORDS SUMMARY | ~2018-11-11 | XMS | Encounter Summary ---
Demographics + + + | Address | [address] | | | [place] [address] | + + + | Home Phone [...] | | | | | [place] [address] | | + + + + + Care Team Providers + +------+ + | Care Skull Chopper Name | Role | Phone | + [...] on | [facility] at [facility] | [facility] | therapy | | | | [address] | [address] [place], [place] | | | | | Mailcode: [place] | [address] | | | | | for Health and | | | | | | Healing, [address] | | | | | | [place], [place] | | | | | | [address] | | | | | | [phone] | | | +--------+ + + + [...] | | | | | | [place], [place] | | | | | | [address] | | | | | | [phone] | | | | | | | | +--------+ + + + + | 11/21/ | Office | Hematology & | Toni Mccrary, | | | 2018 | Visit | Oncology | PhD [address] | | | | | | [place], [place] | | | | | | [address] | | | | | | [phone] | | | | | | | [...] [address] | | | | | | [place], [place] | | | | | | [address] | | | | | | [phone] | | | | | | | | +--------+ + + + + | 11/28/ | Appointment | Hematology & | [address] | | | 2018 | | Oncology | [place], | | | | | | [place] [address] | | +--------+ + + + + | 11/29/ | Office | Physical Therapy | Genna Villegas PT | | | 2019 | Visit | | [address] | | | | | | [place], | | | | | | [place] [address] | | | | | | [phone] | | | | | | | [...] [place] | | | | | | [address] | | | | | | [phone] | | | | | | | | +--------+ + + + + | 12/12/ | Appointment | Hematology & | [address] | | | 2019 | | Oncology | [place] | | | | | | [place] [address] | | +--------+ + + + + as of this encounter Visit Diagnoses Not on filein this encounter"
--- OUTSIDE RECORDS SUMMARY | ~2018-11-11 | XMS | Encounter Summary ---
Demographics + + + | Address | [address] | | | [place] [address] | + + + | Home Phone [...] | | | | | [place] [address] | | + + + + + Care Team Providers + +------+ + | Care Registered Nurse Cardiovascular Icu Name | Role | Phone | + +------+ + | Piotr Plummer MD | PCP | | + +------+ + Encounter Details +--------+ + + + + | Date | Type | Department | Care Team | Description | +--------+ + + + + | 09/18/ | Disk Sharpener | Hematology/Medical | Toni Mccrary, | | | 2019 | | [facility] [place] | ,PhD [address] | | | | | for Health & Healing | [place], [place] | | | | | [address] | [address] | | | | | Mailcode: [place] | [phone] | | | | | for Health and | | | | | | Healing, [address] | | | | | | [place], [place] | | | | | | [address] | | | | | | [phone] | | | +--------+ + + + [...] | | | | | | [place], [place] | | | | | | [address] | | | | | | [phone] | | | | | | | | +--------+ + + + + | 11/21/ | Office | Hematology & | Toni Mccrary, | | | 2018 | Visit | Oncology | PhD [address]ery [address] | | | | | | [place], [place] | | | | | | [address] | | | | | | [phone] | | | | | | | [...] [address] | | | | | | [place], [place] | | | | | | [address] | | | | | | [phone] | | | | | | | | +--------+ + + + + | 11/28/ | Appointment | Hematology & | Onc, Gen [address] | | | 2019 | | Oncology | [place], | | | | | | [place] [address] | | +--------+ + + + + | 11/29/ | Office | Physical Therapy | Genna Villegas, PT | | | 2019 | Visit | | [address] | | | | | | [place], | | | | | | [place] [address] | | | | | | [phone] | | | | | | | | +--------+ + + + + | 12/12/ | Clinical | | | | | 2019 | Support | | | | | | Staff | | | | +--------+ + + + + | 12/12/ | Office | Hematology & | Taz Mcneal, | | | 2018 | Visit | Oncology | [place] [address] [facility] | | | | | | [address] | | | | | | [place] | | | | | | [address] | | | | | | [phone] | | | | | | | | +--------+ + + + + | 12/12/ | Appointment | Hematology & | [address] | | | 2018 | | Oncology | [place] | | | | | | [place] [address] | | +--------+ + + + + as of this encounter Visit Diagnoses Not on filein this encounter"
--- OUTSIDE RECORDS SUMMARY | ~2018-11-11 | XMS | Encounter Summary ---
Demographics + + + | Address | [address] | | | [place] [address] | + + + | Home Phone [...] | | | | | [place] [address] | | + + + + + Care Team Providers + +------+ + | Care Director Phone Name | Role | Phone | + [...] | | | | Mailcode: Center | [place], [place] | | | | | [facility] and | [address] | | | | | Healing, [address] | | | | | | [place], [place] | | | | | | [address] | | | | | | [phone] | | | +--------+ + + + [...] [place] | | | | | | [address] | | | | | | [phone] | | | | | | | | +--------+ + + + + | 11/21/ | Office | Hematology & | Toni Mccrary, | | | 2018 | Visit | Oncology | PhD López DAY | | | | | | [place] | | | | | | [address] | | | | | | [phone] | | | | | | | [...] [address] | | | | | | [place], [place] | | | | | | [address] | | | | | | [phone] | | | | | | | | +--------+ + + + + | 11/28/ | Appointment | Hematology & | [facility] [address] | | | 2019 | | Oncology | [place] | | | | | | [place] [address] | | +--------+ + + + + | 11/29/ | Office | Physical Therapy | Genna Villegas PT | | | 2019 | Visit | | [address] | | | | | | [place], | | | | | | [place] [address] | | | | | | [phone] | | | | | | | [...] [place] | | | | | | [address] | | | | | | [phone] | | | | | | | | +--------+ + + + + | 12/12/ | Appointment | Hematology & | [address] | | | 2018 | | Oncology | [place] | | | | | | [place] [address] | | +--------+ + + + + as of this encounter Visit Diagnoses Not on filein this encounter"
--- OUTSIDE RECORDS SUMMARY | ~2018-11-11 | XMS | Encounter Summary ---
Demographics + + + | Address | [address] | | | [place] [address] | + + + | Home Phone [...] | | | | | [place] [address] | | + + + + + Care Team Providers + +------+ + | Care Contact Printer Dry Film Name | Role | Phone | + [...] | 2019 | on | [facility] | ,PhD [address] | (apixaban) | | | | for Health & Healing | Ave [place], [place] | | | | | [address] | [address] | | | | | Mailcode: [facility] | [phone] | | | | | for Health and | | | | | | Healing, [address] | | | | | | [place], [place] | | | | | | [address] | | | | | | [phone] | | | +--------+ + + + [...] [address] | | | | | | [address] | | | | | | [phone] | | | | | | | | +--------+ + + + + | 11/21/ | Office | Hematology & | Toni Mccrary, | | | 2018 | Visit | Oncology | PhD López DAY | | | | | | [place] | | | | | | [address] | | | | | | [phone] | | | | | | | [...] Rd | | | | | | [place], [place] | | | | | | [address] | | | | | | [phone] | | | | | | | | +--------+ + + + + | 11/28/ | Appointment | Hematology & | Gen Elizabeth [address] | | | 2019 | | Oncology | [place] | | | | | | [place] [address] | | +--------+ + + + + | 11/29/ | Office | Physical Therapy | Genna Villegas PT | | | 2019 | Visit | | [address] | | | | | | [place], | | | | | | [place] [address] | | | | | | [phone] | | | | | | | | +--------+ + + + + | 12/12/ | Clinical | | | | | 2018 | Support | | | | | | Staff | | | | +--------+ + + + + | 12/12/ | Office | Hematology & | Taz Mcneal, | | | 2018 | Visit | Oncology | OLYA [address] | | | | | | [address] | | | | | | [place] | | | | | | [address] | | | | | | [phone] | | | | | | | | +--------+ + + + + | 12/12/ | Appointment | Hematology & | Gen [address] | | | 2019 | | Oncology | [place] | | | | | | [place] [address] | | +--------+ + + + + [...]
--- OUTSIDE RECORDS SUMMARY | ~2018-11-11 | XMS | Encounter Summary ---
Demographics + + + | Address | [address] | | | [place] [address] | + + + | Home Phone [...] | | | | | [place] [address] | | + + + + + Care Team Providers + +------+ + | Care Kitchen Helper Name | Role | Phone | + +------+ + | Piotr Plummer MD | PCP | | + +------+ + Encounter Details +--------+ + + + + | Date | Type | Department | Care Team | Description | +--------+ + + + + | 08/15/ | [facility] | Hematology/Medical | Toni Mccrary, | | | 2019 | | [facility] | ,PhD [address] | | | | | for Health & Healing | [place], [place] | | | | | [address] | [address] | | | | | Mailcode: [facility] | [phone] | | | | | for Health and | | | | | | Healing, [address] | | | | | | [place], [place] | | | | | | [address] | | | | | | [phone] | | | +--------+ + + + [...] | | | | | | [place], [place] | | | | | | [address] | | | | | | [phone] | | | | | | | | +--------+ + + + + | 11/21/ | Office | Hematology & | Toni Mccrary, | | | 2018 | Visit | Oncology | PhD Mery [address] | | | | | | [place], [place] | | | | | | [address] | | | | | | [phone] | | | | | | | [...] | | | | | | [place], [place] | | | | | | [address] | | | | | | [phone] | | | | | | | | +--------+ + + + + | 11/28/ | Appointment | Hematology & | Onc, Gen [address] | | | 2019 | | Oncology | [place], | | | | | | [place] [address] | | +--------+ + + + + | 11/29/ | Office | Physical Therapy | Genna Villegas, PT | | | 2019 | Visit | | [address] | | | | | | [place], | | | | | | [place] [address] | | | | | | [phone] | | | | | | | | +--------+ + + + + | 12/12/ | Clinical | | | | | 2019 | Support | | | | | | Staff | | | | +--------+ + + + + | 12/12/ | Office | Hematology & | Taz Mcneal, | | | 2018 | Visit | Oncology | OLYA [address] [facility] | | | | | | [address] | | | | | | [place] | | | | | | [address] | | | | | | [phone] | | | | | | | | +--------+ + + + + | 12/12/ | Appointment | Hematology & | [address] | | | 2018 | | Oncology | [place] | | | | | | [place] [address] | | +--------+ + + + + as of this encounter Visit Diagnoses Not on filein this encounter"
--- OUTSIDE RECORDS SUMMARY | ~2018-11-11 | XMS | Encounter Summary ---
Demographics + + + | Address | [address] | | | [place] [address] | + + + | Home Phone [...] | | | | | [place] [address] | | + + + + + Care Team Providers + +------+ + | Care Cotton Puller Name | Role | Phone | [...] | Procedures | [address] | [facility] | | | | | CONSULT TO | [address] | Mailcode: | | | | | GI | Rd | [id number] | | | | | PROCEDURE: | [place], [place] | [place] | | | | | ERCP / | [address] | [address] | | | | | BILIARY | Phone: | [place], | | | | | MANOMETRY | [phone] | [place] [address] | | | | | [place] ANES UPR | Fax: | Phone: | | | | | GI NDSC PX | [phone] | [phone] | | | | | NOS DC | | Fax: | | | | | ERCP,BIOPSY | | [phone] | | | | | DC | | | | | | | ERCP,SPHINCT | | | | | | | EROTOMY DC | | | | | | | ERCP,W/REMOV | | | | | | | AL | | | | | | | STONE,LANG/PA | | | | | | | NCR DUCTS | | | | | | | DC ERCP | | | | | | | W/PLACE OF | | | | | | | ENDOSCOPIC | | | | | | | STENT DC | | | | | | | ERCP | | | | | | | W/REMOVAL | | | | | | | FOREIGN BODY | | | | | | | OR STENT | | | | | | | DC ERCP | | | | | | | W/REMOV AND | | | | | | | EXCHANGE OF | | | | | | | STENT DC | | | | | | | ERCP W/TRANS | | | | | | | ENDOSCOPI | | | | | | | BALLOON | | | | | | | DILATION OF | | | | | | | DUCT DC | | | | | | | [...] + + + + | 10/19/ | Retail Account Specialist | Digestive Health | Haresh Truong | Bile duct | | 2019 | | [facility] [address] | MD Lynda [address] | obstruction (Primary | | | | [address] | [address] | Dx) | | | | Mailcode: [place] | [place], [place] | | | | | [facility] and | [address] | | | | | [place] [address] | [phone] | | | | | [place], [place] | | | | | | [address] | | | | | | [phone] | | | +--------+ + + + [...] | | | | | [place], [place] | | | | | | [address] | | | | | | [phone] | | | | | | | | +--------+ + + + + | 11/21/ | Office | Hematology & | Toni Mccrary, | | | 2018 | Visit | Oncology | PhD BARB [address] | | | | | | [place] | | | | | | [address] | | | | | | [phone] | | | | | | | | +--------+ + + + + | 11/28/ | Clinical | | | | | 2018 | Support | | | | | | Staff | | | | +--------+ + + + + | 11/28/ | Office | Hematology & | Taz Mcneal, | | | 2018 | Visit | Oncology | OLYA [address] | | | | | | [address] | | | | | | [place], [place] | | | | | | [address] | | | | | | [phone] | | | | | | | | +--------+ + + + + | 11/28/ | Appointment | Hematology & | Gen Elizabeth [address] | | | 2018 | | Oncology | [place] | | | | | | [place] [address] | | +--------+ + + + + | 11/29/ | Office | Physical Therapy | Gnena Villegas PT | | | 2019 | Visit | | [address] | | | | | | [place], | | | | | | [place] [address] | | | | | | [phone] | | | | | | | [...] | | | | | | [place] | | | | | | [address] | | | | | | [phone] | | | | | | | | +--------+ + + + + | 12/12/ | Appointment | Hematology & | Onc, Gen [address] | | | 2019 | | Oncology | [place], | | | | | | [place] [address] | | +--------+ + + + + as of this encounter Visit Diagnoses + + | Diagnosis | + + | Bile duct obstruction - Primary | + + | Obstruction of bile duct | + +"
--- OUTSIDE RECORDS SUMMARY | ~2018-11-11 | XMS | Encounter Summary ---
Demographics + + + | Address | [address] | | | [place] [address] | + + + | Home Phone [...] | | | | | [place] [address] | | + + + + + Care Team Providers + +------+ + | Care Cryogenic Transport Driver Name | Role | Phone | [...] | | 2019 | | [facility] | ,PhD [address] | | | | | for Health & Healing | Ave [place], [place] | | | | | [address] | [address] | | | | | Mailcode: [place] | [phone] | | | | | for Health and | | | | | | Healing, [address] | | | | | | [place], [place] | | | | | | [address] | | | | | | [phone] | | | +--------+ + + + [...] [place] | | | | | | [address] | | | | | | [phone] | | | | | | | | +--------+ + + + + | 11/21/ | Office | Hematology & | Toni Mccrary, | | | 2018 | Visit | Oncology | PhD López DAY | | | | | | [place] | | | | | | [address] | | | | | | [phone] | | | | | | | [...] Rd | | | | | | [place], [place] | | | | | | [address] | | | | | | [phone] | | | | | | | [...] | | | | | [place], | | | | | | [place] [address] | | | | | | [phone] | | | | | | | | +--------+ + + + + | 12/12/ | Clinical | | | | | 2018 | Support | | | | | | Staff | | | | +--------+ + + + + | 12/12/ | Office | Hematology & | Taz Mcneal, | | | 2018 | Visit | Oncology | OLYA [address] | | | | | | [address] | | | | | | [place] | | | | | | [address] | | | | | | [phone] | | | | | | | | +--------+ + + + + | 12/12/ | Appointment | Hematology & | Gen Elizabeth [address] | | | 2019 | | Oncology | [place] | | | | | | [place] [address] | | +--------+ + + + + as of this encounter Visit Diagnoses Not on filein this encounter"
--- OUTSIDE RECORDS SUMMARY | ~2018-11-11 | XMS | Encounter Summary ---
Demographics + + + | Address | [address] | | | [place] [address] | + + + | Home Phone [...] | | | | | [place] [address] | | + + + + + Care Team Providers + +------+ + | Care Fur Matcher Name | Role | Phone | + [...] | | 2019 | | Center at [facility] [address] | [address] | | | | | [address] [place] | [address] [facility] | | | | | Mailcode: Center | [place], [place] | | | | | [facility] and | [address] | | | | | [facility] 2 | [phone] | | | | | [place], [place] | | | | | | [address] | | | | | | [phone] | | | +--------+ + + + [...] | | | | | | [place], [place] | | | | | | [address] | | | | | | [phone] | | | | | | | | +--------+ + + + + | 11/21/ | Office | Hematology & | Toni Mccrary, | | | 2018 | Visit | Oncology | PhD L[address] | | | | | | [place], [place] | | | | | | [address] | | | | | | [phone] | | | | | | | [...] Rd | | | | | | [place], [place] | | | | | | [address] | | | | | | [phone] | | | | | | | | +--------+ + + + + | 11/28/ | Appointment | Hematology & | Gen Elizabeth [address] | | | 2019 | | Oncology | [place], | | | | | | [place] [address] | | +--------+ + + + + | 11/29/ | Office | Physical Therapy | Genna Villegas, PT | | | 2018 | Visit | | [address] | | | | | | [place], | | | | | | [place] [address] | | | | | | [phone] | | | | | | | | +--------+ + + + + | 12/12/ | Clinical | | | | | 2018 | Support | | | | | | Staff | | | | +--------+ + + + + | 12/12/ | Office | Hematology & | Taz Mcneal, | | | 2018 | Visit | Oncology | OLYA [address] [facility] | | | | | | [address] | | | | | | [place] | | | | | | [address] | | | | | | [phone] | | | | | | | | +--------+ + + + + | 12/12/ | Appointment | Hematology & | [address] | | | 2018 | | Oncology | [place] | | | | | | [place] [address] | | +--------+ + + + + as of this encounter Visit Diagnoses Not on filein this encounter"
--- OUTSIDE RECORDS SUMMARY | ~2018-11-11 | XMS | Encounter Summary ---
Demographics + + + | Address | [address] | | | [place] [address] | + + + | Home Phone [...] | | | | | [place] [address] | | + + + + + Care Team Providers + +------+ + | Care Utility Bag Assembler Name | Role | Phone | [...] | | 2019 | | [facility] | ,PhD [address] | (apixaban 5 mg) | | | | for Health & Healing | Ave [place], [place] | | | | | [address] | [address] | | | | | Mailcode: [facility] | [phone] | | | | | for Health and | | | | | | Healing, [address] | | | | | | [place], [place] | | | | | | [address] | | | | | | [phone] | | | +--------+ + + + [...] | | | | | [place] | | | | | | [address] | | | | | | [phone] | | | | | | | | +--------+ + + + + | 11/21/ | Office | Hematology & | Toni Mccrary, | | | 2018 | Visit | Oncology | PhD Ló[address] DAY | | | | | | [place] | | | | | | [address] | | | | | | [phone] | | | | | | | [...] Rd | | | | | | [place], [place] | | | | | | [address] | | | | | | [phone] | | | | | | | | +--------+ + + + + | 11/28/ | Appointment | Hematology & | Onc, Gen [address] | | | 2019 | | Oncology | [place] | | | | | | [place] [address] | | +--------+ + + + + | 11/29/ | Office | Physical Therapy | Genna Villegas PT | | | 2019 | Visit | | [address] | | | | | | [place], | | | | | | [place] [address] | | | | | | [phone] | | | | | | | [...] [place] | | | | | | [address] | | | | | | [phone] | | | | | | | | +--------+ + + + + | 12/12/ | Appointment | Hematology & | Onc, Gen [address] | | | 2019 | | Oncology | [place] | | | | | | [place] [address] | | +--------+ + + + + as of this encounter Visit Diagnoses Not on filein this encounter"
--- OUTSIDE RECORDS SUMMARY | ~2018-11-11 | XMS | Encounter Summary ---
Demographics + + + | Address | [address] | | | [place] [address] | + + + | Home Phone [...] | | | | | [place] [address] | | + + + + + Care Team Providers + +------+ + | Care Sales Solutions Associate Name | Role | Phone | [...] | 2019 | Visit | [facility] | MICHELE,ACHPN [address] | adenocarcinoma (HCC) | | | | [facility] Healing | [facility] [address] | (Primary Dx); | | | | [address] | [place], [place] | Abdominal bloating | | | | Mailcode: [place] | [address] | with cramps; | | | | for Health and | [phone] | Pancreatic | | | | [facility] 2 | | insufficiency; | | | | [place], [place] | | Advanced care | | | | [address] | | planning/counseling | | | | [phone] | | discussion | +--------+---------+ + + [...] Dr. Winchester. Other resources [facility] [place] and [facility] For pancreatic enzymes: will [...] with meals and snacks - dicussed with deputy court who agrees with trial of creon. She [...] Luisa Hayes M.D. Internal Medicine PGY-3 Pager [phone] Subjective/Objective: Elaine presents with her Elsa. (1) [...] Elsa. 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 2 ad ult daughter, oldest expecting first grandchild. Other daughter in [facility] getting PhD. Pertinent Medical History: Cataracts GERD [...] as needed. ), Disp: , Rfl: Fish Oil-[place]-3 Fatty Acids 340-1,000 mg oral capsule, Take [...] Luisa Hayes M.D. Internal Medicine PGY-3 Pager [phone] in this encounter Plan of Treatment +--------+ [...] | | 2018 | | | ,PhD [address] | | | | | | [place], [place] | | | | | | [address] | | | | | | [phone] | | | | | | | | +--------+ + + + + | 11/21/ | Office | Hematology & | Toni Mccrary, | | | 2019 | Visit | Oncology | PhD BARB [address] | | | | | | [place] [facility] [place] | | | | | | [address] | | | | | | [phone] | | | | | | | | +--------+ + + + + | 11/28/ | Clinical | | | | | 2018 | Support | | | | | | Staff | | | | +--------+ + + + + | 11/28/ | Office | Hematology & | Taz Mcneal, | | | 2018 | Visit | Oncology | OLYA [address] | | | | | | [address] | | | | | | [place], [place] | | | | | | [address] | | | | | | [phone] | | | | | | | | +--------+ + + + + | 11/28/ | Appointment | Hematology & | Onc, Gen [address] | | | 2019 | | Oncology | [place], | | | | | | [place] [address] | | +--------+ + + + + | 11/29/ | Office | Physical Therapy | Genna Villegas PT | | | 2019 | Visit | | [address] | | | | | | [place], | | | | | | [place] [address] | | | | | | [phone] | | | | | | | [...] Rd | | | | | | [place], [place] | | | | | | [address] | | | | | | [phone] | | | | | | | | +--------+ + + + + | 12/12/ | Appointment | Hematology & | Onc, Gen [address] | | | 2018 | | Oncology | [address] [place], | | | | | | [place] [address] | | +--------+ + + + + [...]
--- OUTSIDE RECORDS SUMMARY | ~2018-11-11 | XMS | Encounter Summary ---
Demographics + + + | Address | [address] | | | [place] [address] | + + + | Home Phone [...] | | | | | [place] [address] | | + + + + + Care Team Providers + +------+ + | Care Sheriffs Detective Name | Role | Phone | + [...] | for Health & Healing | Ave [place], [place] | | | | | [address] | [address] | | | | | Mailcode: [place] | [phone] | | | | | for Health and | | | | | | Healing, [address] | | | | | | [place], [place] | | | | | | [address] | | | | | | [phone] | | | +--------+ + + + [...] | | | | | | [place], [place] | | | | | | [address] | | | | | | [phone] | | | | | | | | +--------+ + + + + | 11/21/ | Office | Hematology & | Toni Mccrary, | | | 2018 | Visit | Oncology | PhD [address] | | | | | | [place], [place] | | | | | | [address] | | | | | | [phone] | | | | | | | [...] [place] | | | | | | [address] | | | | | | [phone] | | | | | | | | +--------+ + + + + | 11/28/ | Appointment | Hematology & | [facility] [address] | | | 2018 | | Oncology | [place], | | | | | | [place] [address] | | +--------+ + + + + | 11/29/ | Office | Physical Therapy | Genna Villegas PT | | | 2018 | Visit | | [address] | | | | | | [place], | | | | | | [place] [address] | | | | | | [phone] | | | | | | | | +--------+ + + + + | 12/12/ | Clinical | | | | | 2019 | Support | | | | | | Staff | | | | +--------+ + + + + | 12/12/ | Office | Hematology & | Taz Mcneal, | | | 2018 | Visit | Oncology | OLYA [address] | | | | | | [address] | | | | | | [place] | | | | | | [address] | | | | | | [phone] | | | | | | | | +--------+ + + + + | 12/12/ | Appointment | Hematology & | Gen Elizabeth [address] | | | 2018 | | Oncology | [place] | | | | | | [place] [address] | | +--------+ + + + + as of this encounter Visit Diagnoses Not on filein this encounter"
--- OUTSIDE RECORDS SUMMARY | ~2018-11-11 | XMS | Encounter Summary ---
Demographics + + + | Address | [address] | | | [place] [address] | + + + | Home Phone [...] | | | | | [place] [address] | | + + + + + Care Team Providers + +------+ + | Care Spinning Frame Fixer Name | Role | Phone | [...] [address] | | | | | [facility] | [address] | | | | | [place] | [place], [place] | | | | | (MNP/OLD N) | [address] | | | | | [place] [address] | [phone] | | | | | [phone] | | | +--------+ + + + [...] hours or on weekends and holiday Hospital Editorial Director toll free [phone]. [phone] and have the GI doctor utility worker production paged. The provider who performed your procedure: Dr. Nisha Prince Results of your ERCP: Biliary obstruction found, metal stent placed. Diet: Liquid diets today, advance to low fiber diet as tolerated. Follow up Appointments with: Dr. Olivera and [facility] as planned. Your primary care provider [...] | 1 | 09/13/19 | | | vjhlua-qknypguc-ujge | meals and 1 | capsule | [...] from the original. PRE PROCEDURE NOTE: MR# [id number] Subjective: Elaine Goode is a 73 y.o. [...] 11/21/ | Appointment | Radiology | Toni Olivera, | | | 2018 | | | PhD [address] | | | | | | [place] | | | | | | [address] | | | | | | [phone] | | | | | | | | +--------+ + + + + | 11/21/ | Office | Hematology & | Toni Olivera, | | | 2018 | Visit | Oncology | PhD [address] | | | | | | [place] | | | | | | [address] | | | | | | [phone] | | | | | | | [...] Rd | | | | | | [place] | | | | | | [address] | | | | | | [phone] | | | | | | | | +--------+ + + + + | 11/28/ | Appointment | Hematology & | Gen Elizabeth [address] | | | 2019 | | Oncology | [place] | | | | | | [place] [address] | | +--------+ + + + + | 11/29/ | Office | Physical Therapy | Genna Villegas PT | | | 2019 | Visit | | [address] | | | | | | [place], | | | | | | [place] [address] | | | | | | [phone] | | | | | | | | +--------+ + + + + | 12/12/ | Clinical | | | | | 2018 | Support | | | | | | Staff | | | | +--------+ + + + + | 12/12/ | Office | Hematology & | Taz Mcneal, | | | 2018 | Visit | Oncology | [place] [address] | | | | | | [address] | | | | | | [place] | | | | | | [address] | | | | | | [phone] | | | | | | | | +--------+ + + + + | 12/12/ | Appointment | Hematology & | Onc, Gen [address] | | | 2019 | | Oncology | [place] | | | | | | [place] [address] | | +--------+ + + + + [...] + | MRN: | [facility] | | [id number] Date: 10/23/2018Patient Name: Elaine Gonzalez #: | ENDOSCOPY | | [id number] of : 1945CSN: [id number] Type: | | | AmbulatoryRoom: GI 3Procedure: | | | ERCPIndications: elevated LFTs, hx of metastatic PDAC | | | with new simón dil and early | | | satietyProviders: NISHA PRINCE MD | | | (Doctor), ALICIA FELIPE RN | | | (Nurse), BETY ORTIZ (Nuclear Medical Technologist)Referring | | | MD: CARLOS ALAS JR, MDRequesting Provider: | | | Medicines: Indomethacin 100 mg [place], General | | | AnesthesiaComplications: No immediate [...] | procedure. The Olympus | | | [id number] Therapeutic Endoscope #[id number] | | | was introduced through the | | | mouth, and advanced to the | | | duodenum and used to inject contrast into the bile duct. | | | The Olympus [id number]-160VF | | | Duodenoscope #[id number] was | | | introduced through the mouth, and advanced to the | | | duodenum and used to locate | | | the major papilla. The | | | Olympus [id number]-[id number] Peds Colonooscope #[id number] was | | | introduced through the mouth, | | | and advanced to the duodenum | | | and used to locate the major papilla. The ERCP | | | was accomplished without | | | difficulty. The patient | | | tolerated the procedure well.Estimated Blood Loss: Estimated | | | blood loss: none.Findings: The leadership development instructor film was normal. The | | | [...] for | | | symptoms of progressive GOPHILL PRINCE MD10/23/2018 10:36:19 | | | AMNumber of Addenda: 0Note Initiated On: 10/23/2018 8:43 [facility] Letter | | | to: STEFFI BARRAZA MD, TONI OLIVERA MD | | + + + + +---------+ + + | Performing | Address | City/State/[facility] | Phone Number | | Organization | [...] (L) | 3.5 - 4.7 g/dL | [facility] | | (LAB) | | | SERVICES CORE | + +---------+ + + | BILIRUBIN TOTAL | 2.2 (H) | 0.3 - 1.2 mg/dL | [facility] | | | | | VALERI CORE | + +---------+ + + | [...] | + + + + + | [facility] | [address] | [place] [address] | | | SERVICES, ELISHA | JOLIE COREY | | | + [...]
--- OUTSIDE RECORDS SUMMARY | ~2018-11-11 | XMS | Encounter Summary ---
Demographics + + + | Address | [address] | | | [place] [address] | + + + | Home Phone [...] | | | | | [place] [address] | | + + + + + Care Team Providers + +------+ + | Care Management Nurse Rn Name | Role | Phone | [...] | 10/17/ | Office | Hematology/Medical | Toni Mccrary, | Pancreatic | | 2019 | Visit | Oncology at Center | ,PhD [address] | adenocarcinoma (HCC) | | | | for Health & Healing | [address] [place], [place] | (Primary Dx); Liver | | | | [address] | [address] | metastases (HCC); | | | | Mailcode: Center | [phone] | Right upper quadrant | | | | for Health and | | abdominal pain; | | | | Healing, Building [address] | | Encounter for | | | | [place], [place] | | antineoplastic | | | | [address] | | chemotherapy; | | | | [phone] | | Pancreatic | | | | [...] | | | | cancer (HCC) | +--------+---------+ + + + Social History [...] encounter Progress Notes Toni Mccrary MD,PhD - 10/17/2018 12:00 PM PDTFormatting of this note may be [...] may represent a postoperative biloma or hematoma. 08/22/18: Cycle 1 Gemcitabine + Abraxane 08/28/18: Port revised 10/03/18: Cycle 2 Gemcitabine + Abraxane Interim history: Elaine was recently admitted to ED on 10/01/18 d/t 7 days of diarrhea and abdominal pain. Di arrhea was exacerbated by senokot and smooth move tea. She returns for consideration of cycl e 3 gemcitabine +abraxane. Since her last visit, she continues to note improvement of abdomi nal pain with CREON. She also reports morphine has helped with pain control, but there is oc casional breakthrough pain localized at her liver. She also notes increased loss of balance and wobbliness. As a result, she cannot walk in a straight line, does not trust herself to drive, and requires assistance while grocery shoppi ng. Last Monday night, she had drenching night sweats and had to change her towels 3 times t hat night. She reports these night sweats occur once every 1-2 weeks. Denies associated feve rs with night sweats. Patient also has occasional headaches in morning, but has not had migr jeimy headache halos for the past few weeks. She has slightly blurry vision she attributes to reading on her phone and reports "chemo-brain", slight cracking of fingernails, and occasio nathaniel bright urine. Denies noticing jaundice. Review of systems: small blood clots in her nostrils and episodes of pressure-resolved epis taxis since starting apixaban. Remainder of complete 14 pt review of systems negative except as above. PFSH: I reviewed and updated. Good social support system for continued chemotherapy. Physical Exam: Today's weight is 53.8 kg (118 lb 8 oz). Her oral temperature is 37.2 C (99 F). Her bl ood pressure is 126/61 and her pulse is 90. Her respiration is 14 and oxygen saturation is 9 5%. GEN: Fatigued appearing. Alopecia HEENT: non-icteric, oropharnyx clear NECK: supple LN: none appreciated LUNGS: clear to auscultation. CV: normal ABD: mild tenderness RUQ. Normal bowel sounds. No hepatosplenomegaly. EXT: no CCE NEURO: intact SKIN: non-icteric PSYCH: appropriate Lab Results Component Value Date CA199 2,021.0 [...] 10/03/2018 ANIONGAP 10 10/01/2018 ANIONALBCOR 11 10/01/2018 Imaging: New CT CAP pending PLAN: 1. Metastatic pancreatic adenocarcinoma. --ongoing first line Yadkin/Abraxane. Tolerating well with significant decline in CA19-9. Note s increasing fatigue. Recent episode of diarrhea requiring ED visit. --No treatment infusion today. Defer C3D1 Yadkin/Abraxane today to next week (10/24/18) given p atient recently had diarrhea and is still recovering --Administer sodium chloride 0.9% (NS) IV infusion today --Labs for CBC, CMP, CA199 today --Restaging CT today will help evaluate disease progression. If disease is responsive to tr eatment, will switch from D1,8,15 schedule to D1,15 schedule for tolerability. --I discussed the goals, objectives, risks, benefits, and toxicities of therapy and the pat ient wishes to proceed. --Will need close and frequent monitoring physical examinations and laboratory monitoring f or toxicities of ongoing cytotoxic chemotherapy. 2. MMTERT/SMMART trial --consented today. Has already been consented to OPTR --other options at progression include Morpheus trial (combination immunotherapeutics). 3. Nutrition: Rosemarie Galan following - continue CREON per nutrition recs 4. RIJ thrombus - continue apixiban - Recommend over the counter saline spray for nose bleeds 5. Cancer pain -continue current pain regime -continue close follow-up with palliative care I am Celena Ardon functioning as scribe for Toni Mccrary MD,PhD at 11:54 AM on 10/17/2018 I have reviewed and verified the above scribed note of my visit with this patient as record ed by Celena Ardon. ADDENDA: Restaging CT with responsive disease but with new biliary duct obstruction. Bilirubin eleno l. Discussed with GI and plan to proceed with ERCP. in this encounter Plan of Treatment +--------+ [...] [place] | | | | | | [address] | | | | | | [phone] | | | | | | | | +--------+ + + + + | 11/21/ | Office | Hematology & | Toni Mccrary, | | | 2018 | Visit | Oncology | MDPhD [address] | | | | | | [place] | | | | | | [address] | | | | | | [phone] | | | | | | | [...] Rd | | | | | | [place], [place] | | | | | | [address] | | | | | | [phone] | | | | | | | | +--------+ + + + + | 11/28/ | Appointment | Hematology & | Onc, Gen [address] | | | 2019 | | Oncology | [place], | | | | | | [place] [address] | | +--------+ + + + + | 11/29/ | Office | Physical Therapy | Genna Villegas, PT | | | 2019 | Visit | | [address] | | | | | | [place], | | | | | | [place] [address] | | | | | | [phone] | | | | | | | | +--------+ + + + + | 12/12/ | Clinical | | | | | 2018 | Support | | | | | | Staff | | | | +--------+ + + + + | 12/12/ | Office | Hematology & | Taz Mcneal, | | | 2018 | Visit | Oncology | OLYA [address] [facility] | | | | | | [address] | | | | | | [place] | | | | | | [address] | | | | | | [phone] | | | | | | | | +--------+ + + + + | 12/12/ | Appointment | Hematology & | Gen Elizabeth [address] | | | 2018 | | Oncology | [place] | | | | | | [place] [address] | | +--------+ + + + + [...] right upper quadrant | + + | Encounter for antineoplastic chemotherapy | + + | Pancreatic insufficiency | + + | Other specified disease of pancreas | + + | Embolism due to any device, implant or graft, subsequent encounter | + + | Anticoagulated by anticoagulation treatment | + + | Encounter for long-term (current) use of anticoagulants | + + | 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
--- OUTSIDE RECORDS SUMMARY | ~2018-11-11 | XMS | Encounter Summary ---
Demographics + + + | Address | [address] | | | [place] [address] | + + + | Home Phone [...] | | | | | [place] [address] | | + + + + + Care Team Providers + +------+ + | Care Care Navigator Name | Role | Phone | + [...] | | 2019 | | [facility] at [place] | MICHELE,ACHPN [address] | (Mayra) | | | | for Health & Healing | [address] | | | | | [address] | [place], [place] | | | | | Mailcode: [place] | [address] | | | | | for Health and | [phone] | | | | | Healing, [place] [address] | | | | | | [place], [place] | | | | | | [address] | | | | | | [phone] | | | +--------+ + + + [...] | | | | | | [place], [place] | | | | | | [address] | | | | | | [phone] | | | | | | | | +--------+ + + + + | 11/21/ | Office | Hematology & | Toni Mccrary, | | | 2018 | Visit | Oncology | MDPhD [address] | | | | | | [place] [facility] [place] | | | | | | [address] | | | | | | [phone] | | | | | | | [...] Rd | | | | | | [place], [place] | | | | | | [address] | | | | | | [phone] | | | | | | | | +--------+ + + + + | 11/28/ | Appointment | Hematology & | Gen Elizabeth [address] | | | 2019 | | Oncology | [place], | | | | | | [place] [address] | | +--------+ + + + + | 11/29/ | Office | Physical Therapy | Genna Villegas, PT | | | 2019 | Visit | | [address] | | | | | | [place], | | | | | | [place] [address] | | | | | | [phone] | | | | | | | [...] [place] | | | | | | [address] | | | | | | [phone] | | | | | | | | +--------+ + + + + | 12/12/ | Appointment | Hematology & | [address] | | | 2019 | | Oncology | [place] | | | | | | [place] [address] | | +--------+ + + + + [...]
--- OUTSIDE RECORDS SUMMARY | ~2018-11-11 | XMS | Encounter Summary ---
Demographics + + + | Address | [address] | | | [place] [address] | + + + | Home Phone [...] | | | | | [place] [address] | | + + + + + Care Team Providers + +------+ + | Care Correctional Facility Nurse Name | Role | Phone | [...] | 08/13/ | Lab | Laboratory at [facility] | | Pancreatic | | 2019 | | [address] | | adenocarcinoma (HCC) | | | | [place], [place] | | | | | | [address] | | | | | | [phone] | | | +--------+------+ + + + [...] [place] | | | | | | [address] | | | | | | [phone] | | | | | | | | +--------+ + + + + | 11/21/ | Office | Hematology & | Toni Mccrary, | | | 2019 | Visit | Oncology | PhD [address] | | | | | | [place] | | | | | | [address] | | | | | | [phone] | | | | | | | [...] Rd | | | | | | [place] | | | | | | [address] | | | | | | [phone] | | | | | | | | +--------+ + + + + | 11/28/ | Appointment | Hematology & | [facility] [address] | | | 2019 | | Oncology | [place] | | | | | | [place] [address] | | +--------+ + + + + | 11/29/ | Office | Physical Therapy | Genna Villegas PT | | | 2019 | Visit | | [address] | | | | | | [place], | | | | | | [place] [address] | | | | | | [phone] | | | | | | | [...] Rd | | | | | | [place], [place] | | | | | | [address] | | | | | | [phone] | | | | | | | | +--------+ + + + + | 12/12/ | Appointment | Hematology & | Onc, [address] | | | 2019 | | Oncology | [place] | | | | | | [place] [address] | | +--------+ + + + + [...] 13.9 | 12.0 - 16.0 g/dL | [facility] [...] (L) | 9.7 - 12.3 fL | [facility] | | | | | SERVICES, | | | | | [facility] | | [facility] | [facility] + | | | | | HEALING | + + + + + | NEUTROPHIL % | 81.4 (H) | 50.0 - 70.0 % | [facility] | | | | [...] (L) | 1.0 - 3.0 % | [facility] | | | | | SERVICES, [...] | 0.10 - 0.90 K/cu mm | [facility] | | | | | SERVICES, | | | | | [facility] | | | | | [facility] + | | | | | HEALING | + + + + + | EOS # | 0.04 | 0.00 - 0.50 K/cu mm | [facility] | | | | | SERVICES, | | | | | [facility] | | [facility] | | [facility] + | | | | | HEALING | + + + + + | BASO # | 0.02 | 0.00 - 0.10 K/cu mm | [facility] | | | | | [...] | + + + + + | [employer] | [address] | [place] [address] | | | SERVICES, [facility] | | | | | HEALTH + HEALING | | | | + + + + + [facility] GI (19-9), SERUM (08/13/2018 11:50 AM) + + + + + | Component | Value | Ref Range | Performed At | + + + + + | [facility] GI (19-9) | 8,843.5 (H) | <=37.0 U/mL | [...] | + + + + + | [facility] | [address] [facility] | [place] [address] | | | SERVICES, CORE | PARK [...] 11 | 6 - 20 mg/dL | [facility] | | | [...] [facility] | [address] | [place] [address] | | | SERVICES, CENTER FOR | | | | | HEALTH + HEALING | | | | + + + + + UA, DIPSTICK ONLY (08/13/2018 11:43 AM) + + + + [...] LABORATORY | | | | mg/dL | VALERI, CORE | + + + [...] [facility] | | | | | VALERI, CORE | + + + + + | LEUKOCYTE ESTERASE | Negative | Negative | [facility] | | | | | SERVICES, CORE | + + + + + | SPECIFIC GRAVITY | 1.021Comment: Specific | 1.005 - 1.030 | [facility] | | | [place] performed by | | ELISHA TRAMMELL | | | refractometry | | | + + + + + + + | Specimen | + + | Urine - Clean catch | + + + + + + + | Performing | Address | City/State/Zipcode | Phone Number | | Organization | | | | + + + + + | [facility] | [address] | [place] [address] | | | SERVICES, CORE | [address] | | | + + + + + in this encounter Visit Diagnoses + + | Diagnosis | + + | Pancreatic adenocarcinoma (HCC) | + + | Malignant neoplasm of pancreas, part unspecified | + +"
--- OUTSIDE RECORDS SUMMARY | ~2018-11-11 | XMS | Encounter Summary ---
Demographics + + + | Address | [address] | | | [place] [address] | + + + | Home Phone | | + + + | Preferred Language | Unknown | + + + | Marital Status | | + + + | Hindu Affiliation | NRP | + + + | Race | White | + + + | Ethnic Group | Not or | + + + Author + + + | Author | [facility] | + + + | Organization | [facility] | + + + | Address | Unknown | + + + | Phone | Unavailable | + + + Support + + + + + | Name | Relationship | Address | Phone | + + + + + | ELSA GOODE | ECON | [address] | | | | | [place] [address] | | + + + + + Care Team Providers + +------+ + | Care Secondary Art Teacher Name | Role | Phone | [...] | 2019 | Encounter | Services at [facility] | ,PhD [address] | Request) | | | | [address] | [place], [place] | | | | | [facility] | [address] | | | | | Mailcode: L[address] [facility] | [phone] | | | | | [facility], | | | | | | [place] [address] | | | | | | [phone] | | | +--------+ + + + [...] | +--------+ + + + + | 04/26/ | Procedure | Hematology & | | | | 2019 | Pass | Oncology | | | +--------+ + + + + | 11/21/ | Appointment | Radiology | Toni Mccrary, | | | 2018 | | | PhD [address] | | | | | | [place], [place] | | | | | | [address] | | | | | | [phone] | | | | | | | | +--------+ + + + + | 11/21/ | Office | Hematology & | Toni Mccrary, | | | 2018 | Visit | Oncology | PhD [address] | | | | | | [place], [place] | | | | | | [address] | | | | | | [phone] | | | | | | | [...] Rd | | | | | | [place], [place] | | | | | | [address] | | | | | | [phone] | | | | | | | | +--------+ + + + + | 11/28/ | Appointment | Hematology & | Gen Elizabeth [address] | | | 2019 | | Oncology | [place], | | | | | | [place] [address] | | +--------+ + + + + | 11/29/ | Office | Physical Therapy | Genna Villegas, PT | | | 2018 | Visit | | [address] | | | | | | [place], | | | | | | [place] [address] | | | | | | [phone] | | | | | | | [...] Rd | | | | | | [place] | | | | | | [address] | | | | | | [phone] | | | | | | | | +--------+ + + + + | 12/12/ | Appointment | Hematology & | [facility] [address] | | | 2018 | | Oncology | [place] | | | | | | [place] [address] | | +--------+ + + + + [...]
--- OUTSIDE RECORDS SUMMARY | ~2018-11-11 | XMS | Encounter Summary ---
Demographics + + + | Address | [address] | | | [place] [address] | + + + | Home Phone | | + + + | Preferred Language | Unknown | + + + | Marital Status | | + + + | Jew Affiliation | NRP | + + + [...] | | | | | [place] [address] | | + + + + + Care Team Providers + +------+ + | Care Parts Processor Name | Role | Phone | [...] | 2019 | Visit | [facility] | [address] | adenocarcinoma (HCC) | | | | for Health & Healing | [place], [place] | (Primary Dx) | | | | [address] | [address] | | | | | Mailcode: [place] | [phone] | | | | | for Health and | | | | | | Healing, [address] | | | | | | [place], [place] | | | | | | [address] | | | | | | [phone] | | | +--------+---------+ + + + [...] | | 2018 | | | ,PhD [address] | | | | | | [place], [place] | | | | | | [address] | | | | | | [phone] | | | | | | | | +--------+ + + + + | 11/21/ | Office | Hematology & | Toni Mccrary, | | | 2018 | Visit | Oncology | PhD BARB [address] | | | | | | [place], [place] | | | | | | [address] | | | | | | [phone] | | | | | | | | +--------+ + + + + | 11/28/ | Clinical | | | | | 2019 | Support | | | | | | Staff | | | | +--------+ + + + + | 11/28/ | Office | Hematology & | Taz Mcneal, | | | 2018 | Visit | Oncology | OLYA [address] | | | | | | [address] | | | | | | [place], [place] | | | | | | [address] | | | | | | [phone] | | | | | | | | +--------+ + + + + | 11/28/ | Appointment | Hematology & | Onc, Gen [address] | | | 2019 | | Oncology | [place], | | | | | | [place] [address] | | +--------+ + + + + | 11/29/ | Office | Physical Therapy | Genna Villegas PT | | | 2018 | Visit | | [address] | | | | | | [place], | | | | | | [place] [address] | | | | | | [phone] | | | | | | | [...] [place] | | | | | | [address] | | | | | | [phone] | | | | | | | | +--------+ + + + + | 12/12/ | Appointment | Hematology & | Onc, Gen [address] | | | 2019 | | Oncology | [place], | | | | | | [place] [address] | | +--------+ + + + + as of this encounter Visit Diagnoses + + | Diagnosis | + + | Pancreatic adenocarcinoma (HCC) - Primary | + + | Malignant neoplasm of pancreas, part unspecified | + +"
--- OUTSIDE RECORDS SUMMARY | ~2018-11-11 | XMS | Encounter Summary ---
Demographics + + + | Address | [address] | | | [place] [address] | + + + | Home Phone [...] | | | | | [place] [address] | | + + + + + Care Team Providers + +------+ + | Care Application Development Liaison Name | Role | Phone | + [...] | | | | Mailcode: Center | [place], [place] | | | | | [facility] and | [address] | | | | | Healing, [address] | | | | | | [place], [place] | | | | | | [address] | | | | | | [phone] | | | +--------+ + + + [...] [place] | | | | | | [address] | | | | | | [phone] | | | | | | | | +--------+ + + + + | 11/21/ | Office | Hematology & | Toni Mccrary, | | | 2018 | Visit | Oncology | PhD [address] | | | | | | [place] | | | | | | [address] | | | | | | [phone] | | | | | | | [...] Rd | | | | | | [place], [place] | | | | | | [address] | | | | | | [phone] | | | | | | | | +--------+ + + + + | 11/28/ | Appointment | Hematology & | [facility] [address] | | | 2019 | | Oncology | [place] | | | | | | [place] [address] | | +--------+ + + + + | 11/29/ | Office | Physical Therapy | Genna Villegas PT | | | 2019 | Visit | | [address] | | | | | | [place], | | | | | | [place] [address] | | | | | | [phone] | | | | | | | [...] [place] | | | | | | [address] | | | | | | [phone] | | | | | | | | +--------+ + + + + | 12/12/ | Appointment | Hematology & | [address] | | | 2018 | | Oncology | [place] | | | | | | [place] [address] | | +--------+ + + + + as of this encounter Visit Diagnoses Not on filein this encounter"
--- OUTSIDE RECORDS SUMMARY | ~2018-11-11 | XMS | Encounter Summary ---
Demographics + + + | Address | [address] | | | [place] [address] | + + + | Home Phone | | + + + | Preferred Language | Unknown | + + + | Marital Status | | + + + | Rastafarian Affiliation | NRP | + + + [...] | | | | | [place] [address] | | + + + + + Care Team Providers + +------+ + | Care Engineering Professor Name | Role | Phone | [...] | Oncology at [facility] | [address] [place], | | | | | [address] | [place] [address] | | | | | Mailcode: [place] | | | | | | for Health and | | | | | | Healing, [address] | | | | | | [place], [place] | | | | | | [address] | | | | | | [phone] | | | +--------+ + + + [...] | | | | | | adenocarcinoma ([facility]) | dose: 40 mg/day | | [...] PM PSTChemotherapy Nurse Note Name: Elaine NAQVI: [id number] Date: 09/05/2018 Physician: Hermann Allergies: Elaine has [...] acute 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 Refer to MAR and Onc Lines [...] | | | | | | [place], [place] | | | | | | [address] | | | | | | [phone] | | | | | | | | +--------+ + + + + | 11/21/ | Office | Hematology & | Toni Mccrary, | | | 2019 | Visit | Oncology | PhD [address] | | | | | | [place], [place] | | | | | | [address] | | | | | | [phone] | | | | | | | [...] Rd | | | | | | [place], [place] | | | | | | [address] | | | | | | [phone] | | | | | | | | +--------+ + + + + | 11/28/ | Appointment | Hematology & | Gen Elizabeth [address] | | | 2018 | | Oncology | [place], | | | | | | [place] [address] | | +--------+ + + + + | 11/29/ | Office | Physical Therapy | Genna Villegas, PT | | | 2018 | Visit | | [address] | | | | | | [place], | | | | | | [place] [address] | | | | | | [phone] | | | | | | | [...] [place] | | | | | | [address] | | | | | | [phone] | | | | | | | | +--------+ + + + + | 12/12/ | Appointment | Hematology & | Onc, Gen [address] | | | 2018 | | Oncology | [place] | | | | | | [place] [address] | | +--------+ + + + + [...] 4.8 | 3.5 - 10.8 10*3/uL | [facility], | | | | | POINT [...] | + + + + + | [facility], POINT | [address] [facility] | [place] [address] | | | OF CARE TESTS | [...] | [facility], POINT | [address] [facility] | [place] [address] | | | OF CARE TESTS | | | | + + + + + [facility]ER [facility] GI (), SERUM (09/05/2018 3:17 PM) + + + + + | Component | Value | Ref Range | Performed At | + + + + + | [facility] GI () | 6,647.5 (H) | <=37.0 U/mL | [facility] | | [facility] | | | SERVICES, CORE | + + + + + + + | Specimen | + + | Blood - Blood | + + + + + + + | Performing | Address | City/State/Zipcode | Phone Number | | Organization | | | | + + + + + | [facility] | [address] | [place] [address] | | | SERVICES, CORE | [place] [...]
--- OUTSIDE RECORDS SUMMARY | ~2018-11-11 | XMS | Encounter Summary ---
Demographics + + + | Address | [address] | | | [place] [address] | + + + | Home Phone [...] | | | | | [place] [address] | | + + + + + Care Team Providers + +------+ + | Care Semiconductor Assembler Name | Role | Phone | + +------+ + | Piotr Plummre MD | PCP | | + +------+ [...] | (10/23/18) | | | | [address] | [facility] | | | | | [address] [facility] | [place], [place] | | | | | Road Mailcode: | [address] | | | | | [address] | [phone] | | | | | [address] | | | | | | [place], [place] | | | | | | [address] | | | | | | [phone] | | | +--------+ + + + [...] [place] | | | | | | [address] | | | | | | [phone] | | | | | | | | +--------+ + + + + | 11/21/ | Office | Hematology & | Tnoi Mccrary, | | | 2019 | Visit | Oncology | PhD [address] | | | | | | [place] | | | | | | [address] | | | | | | [phone] | | | | | | | [...] [place] | | | | | | [address] | | | | | | [phone] | | | | | | | | +--------+ + + + + | 11/28/ | Appointment | Hematology & | Gen Elizabeth [address] | | | 2019 | | Oncology | [place] | | | | | | [place] [address] | | +--------+ + + + + | 11/29/ | Office | Physical Therapy | Genna Villegas PT | | | 2019 | Visit | | [address] | | | | | | [place], | | | | | | [place] [address] | | | | | | [phone] | | | | | | | | +--------+ + + + + | 12/12/ | Clinical | | | | | 2018 | Support | | | | | | Staff | | | | +--------+ + + + + | 12/12/ | Office | Hematology & | Taz Mcneal, | | | 2018 | Visit | Oncology | OLYA [address] | | | | | | [address] | | | | | | [place] | | | | | | [address] | | | | | | [phone] | | | | | | | | +--------+ + + + + | 12/12/ | Appointment | Hematology & | [facility] [address] | | | 2019 | | Oncology | [place] | | | | | | [place] [address] | | +--------+ + + + + as of this encounter Visit Diagnoses Not on filein this encounter"
--- OUTSIDE RECORDS SUMMARY | ~2018-11-11 | XMS | Encounter Summary ---
Demographics + + + | Address | [address] | | | [place] [address] | + + + | Home Phone [...] | | | | | [place] [address] | | + + + + + Care Team Providers + +------+ + | Care Dental Secretary Name | Role | Phone | + [...] | adenocarcino | [address] | [facility] | | | | | makeda ([facility]) | [facility] | Road | | | | | Procedures | Rd | Mailcode: | | | | | IR PORT | [place], [place] | [address] | | | | | PROCEDURE | [id number] | [facility] | | | | | IN INSERT | Phone: | Hospital | | | | | GAETANO CV | [phone] | [facility] | | | | | CATH,W SQ | Fax: | [place], [place] | | | | | PORT,>7 Y/O | [phone] | [address] | | | | | | | Phone: | | | | | | | [phone] | | | | | | | Fax: | | | | | | | [phone] | +--------+--------+ + + + + Encounter Details +--------+ + + + + | Date | Type | Department | Care Team | Description | +--------+ + + + + | 08/23/ | Telephone | Digestive Health | Martin Carrero, | | | 2019 | | [facility] [address] | [address] | | | | | [address] | [address] | | | | | Mailcode: Center | [place], [place] | | | | | for Health and | [address] | | | | | Healing, [address] | [phone] | | | | | [place], [place] | | | | | | [address] | | | | | | [phone] | | | +--------+ + + + [...] | | | | | | [place], [place] | | | | | | [address] | | | | | | [phone] | | | | | | | | +--------+ + + + + | 11/21/ | Office | Hematology & | Toni Mccrary, | | | 2018 | Visit | Oncology | PhD Mery DAY [address] | | | | | | [place], [place] | | | | | | [address] | | | | | | [phone] | | | | | | | [...] Rd | | | | | | [place], [place] | | | | | | [address] | | | | | | [phone] | | | | | | | | +--------+ + + + + | 11/28/ | Appointment | Hematology & | Onc, Gen [address] | | | 2019 | | Oncology | [place], | | | | | | [place] [address] | | +--------+ + + + + | 11/29/ | Office | Physical Therapy | Genna Villegas, PT | | | 2019 | Visit | | [address] | | | | | | [place], | | | | | | [place] [address] | | | | | | [phone] | | | | | | | | +--------+ + + + + | 12/12/ | Clinical | | | | | 2019 | Support | | | | | | Staff | | | | +--------+ + + + + | 12/12/ | Office | Hematology & | Taz Mcneal, | | | 2018 | Visit | Oncology | OLYA [address] [facility] | | | | | | [address] | | | | | | [place] | | | | | | [address] | | | | | | [phone] | | | | | | | | +--------+ + + + + | 12/12/ | Appointment | Hematology & | [address] | | | 2018 | | Oncology | [place] | | | | | | [place] [address] | | +--------+ + + + + as of this encounter Results IR PORT PROCEDURE (08/28/2018 9:48 AM) + + + | Narrative | Performed At | + + + | PROCEDURE: Removal of right chest port with placement of new port | [facility] | | PRIMARY DISPENSARY CLERK: Varsha Avalos MD ANGIOGRAPHY ATTENDING: | RADIOLOGY [...] tip of the indwelling Port-A-Cath. A 5 Cook Islander | | | dilator was inserted and [...] exchanged for an 8 | | | Cook Islander peel-away sheath. The new catheter was advanced [...] were discussed with the patient's oncologist, Toni Mccrayr, | | | Sadia. He will manage [...] port with placement of new port PRIMARY DISPENSARY CLERK: Varsha | | MD Robbie ANGIOGRAPHY ATTENDING: [...] tip of the indwelling Port-A-Cath. A 5 Cook Islander dilator was | | inserted and advanced [...] was | | exchanged for an 8 Cook Islander peel-away sheath. The new catheter was advanced [...]
--- OUTSIDE RECORDS SUMMARY | ~2018-11-11 | XMS | Encounter Summary ---
Demographics + + + | Address | [address] | | | [place] [address] | + + + | Home Phone | | + + + | Preferred Language | Unknown | + + + | Marital Status | | + + + | Anglican Affiliation | NRP | + + + [...] | | | | | [place] [address] | | + + + + + Care Team Providers + +------+ + | Care Wire Coater Name | Role | Phone | + [...] | | 2019 | | [facility] [place] | ,PhD [address] | | | | | for Health & Healing | Ave [place], [place] | | | | | [address] | [address] | | | | | Mailcode: [place] | [phone] | | | | | for Health and | | | | | | Healing, [address] | | | | | | [place], [place] | | | | | | [address] | | | | | | [phone] | | | +--------+ + + + [...] [place] | | | | | | [address] | | | | | | [phone] | | | | | | | | +--------+ + + + + | 11/21/ | Office | Hematology & | Toni Mccrary, | | | 2018 | Visit | Oncology | PhD [address] | | | | | | [place] | | | | | | [address] | | | | | | [phone] | | | | | | | [...] Rd | | | | | | [place], [place] | | | | | | [address] | | | | | | [phone] | | | | | | | | +--------+ + + + + | 11/28/ | Appointment | Hematology & | [address] [address] | | | 2019 | | Oncology | [place], | | | | | | [place] [address] | | +--------+ + + + + | 11/29/ | Office | Physical Therapy | Genna Villegas, PT | | | 2019 | Visit | | [address] | | | | | | [place], | | | | | | [place] [address] | | | | | | [phone] | | | | | | | | +--------+ + + + + | 12/12/ | Clinical | | | | | 2018 | Support | | | | | | Staff | | | | +--------+ + + + + | 12/12/ | Office | Hematology & | Taz Mcneal, | | | 2018 | Visit | Oncology | OLYA [address] | | | | | | [address] | | | | | | [place] | | | | | | [address] | | | | | | [phone] | | | | | | | | +--------+ + + + + | 12/12/ | Appointment | Hematology & | [address] | | | 2019 | | Oncology | [place] | | | | | | [place] [address] | | +--------+ + + + + [...]
--- OUTSIDE RECORDS SUMMARY | ~2018-11-11 | XMS | Encounter Summary ---
Demographics + + + | Address | [address] | | | [place] [address] | + + + | Home Phone [...] | | | | | [place] [address] | | + + + + + Care Team Providers + +------+ + | Care Child Guidance Counselor Name | Role | Phone | + +------+ + | Piotr Plummer MD | PCP | | + +------+ + Encounter Details +--------+ + + + + | Date | Type | Department | Care Team | Description | +--------+ + + + + | 09/25/ | [facility] | Hematology/Medical | Toni Mccrary, | | | 2019 | | [facility] [place] | ,PhD [address] | | | | | for Health & Healing | [place], [place] | | | | | [address] | [address] | | | | | Mailcode: [place] | [phone] | | | | | for Health and | | | | | | Healing, [address] | | | | | | [place], [place] | | | | | | [address] | | | | | | [phone] | | | +--------+ + + + [...] | | | | | | [place], [place] | | | | | | [address] | | | | | | [phone] | | | | | | | | +--------+ + + + + | 11/21/ | Office | Hematology & | Toni Mccrary, | | | 2018 | Visit | Oncology | PhD Mery [address] | | | | | | [place], [place] | | | | | | [address] | | | | | | [phone] | | | | | | | [...] Rd | | | | | | [place], [place] | | | | | | [address] | | | | | | [phone] | | | | | | | | +--------+ + + + + | 11/28/ | Appointment | Hematology & | Onc, Gen [address] | | | 2019 | | Oncology | [place], | | | | | | [place] [address] | | +--------+ + + + + | 11/29/ | Office | Physical Therapy | Genna Villegas, PT | | | 2019 | Visit | | [address] | | | | | | [place], | | | | | | [place] [address] | | | | | | [phone] | | | | | | | [...] [place] | | | | | | [address] | | | | | | [phone] | | | | | | | | +--------+ + + + + | 12/12/ | Appointment | Hematology & | [facility] [address] | | | 2018 | | Oncology | [place] | | | | | | [place] [address] | | +--------+ + + + + as of this encounter Visit Diagnoses Not on filein this encounter"
--- OUTSIDE RECORDS SUMMARY | ~2018-11-11 | XMS | Encounter Summary ---
Demographics + + + | Address | [address] | | | [place] [address] | + + + | Home Phone [...] | | | | | [place] [address] | | + + + + + Care Team Providers + +------+ + | Care Pattern Illustrator Name | Role | Phone | + [...] | 2019 | on | [facility] [place] | ,PhD [address] | (gemcitabine-Abraxan | | | | for Health & Healing | Ave [place], [place] | e) | | | | [address] | [address] | | | | | Mailcode: [place] | [phone] | | | | | for Health and | | | | | | Healing, [address] | | | | | | [place], [place] | | | | | | [address] | | | | | | [phone] | | | +--------+ + + + [...] [place] | | | | | | [address] | | | | | | [phone] | | | | | | | | +--------+ + + + + | 11/21/ | Office | Hematology & | Toni Mccrary, | | | 2019 | Visit | Oncology | PhD [address] | | | | | | [place] | | | | | | [address] | | | | | | [phone] | | | | | | | [...] Rd | | | | | | [place] | | | | | | [address] | | | | | | [phone] | | | | | | | | +--------+ + + + + | 11/28/ | Appointment | Hematology & | [address] | | | 2019 | | Oncology | [place] | | | | | | [place] [address] | | +--------+ + + + + | 11/29/ | Office | Physical Therapy | Genna Villegas PT | | | 2019 | Visit | | [address] | | | | | | [place], | | | | | | [place] [address] | | | | | | [phone] | | | | | | | | +--------+ + + + + | 12/12/ | Clinical | | | | | 2018 | Support | | | | | | Staff | | | | +--------+ + + + + | 12/12/ | Office | Hematology & | Taz Mcneal, | | | 2018 | Visit | Oncology | [place] [address] | | | | | | [address] | | | | | [facility] | | | | | | [address] | | | | | | [phone] | | | | | | | | +--------+ + + + + | 12/12/ | Appointment | Hematology & | Onc [address] | | | 2019 | | Oncology | [place] | | | | | | [place] [address] | | +--------+ + + + + as of this encounter Visit Diagnoses Not on filein this encounter"
--- OUTSIDE RECORDS SUMMARY | ~2018-11-11 | XMS | Encounter Summary ---
Demographics + + + | Address | [address] | | | [place] [address] | + + + | Home Phone [...] | | | | | [place] [address] | | + + + + + Care Team Providers + +------+ + | Care Lithography Contact Worker Name | Role | Phone | [...] [address]VE | | | | | [facility] | [place] [address] | | | | | Road Mailcode: | | | | | | [address] [facility] | | | | | | [address] | | | | | | [place], [place] | | | | | | [address] | | | | | | [phone] | | | +--------+ + + + [...] | | | | | | [place], [place] | | | | | | [address] | | | | | | [phone] | | | | | | | | +--------+ + + + + | 11/21/ | Office | Hematology & | Toni Olivera, | | | 2018 | Visit | Oncology | PhD BARB [address] | | | | | | [place], [place] | | | | | | [address] | | | | | | [phone] | | | | | | | [...] Rd | | | | | | [place], [place] | | | | | | [address] | | | | | | [phone] | | | | | | | | +--------+ + + + + | 11/28/ | Appointment | Hematology & | Onc, Gen [address] | | | 2019 | | Oncology | [place], | | | | | | [place] [address] | | +--------+ + + + + | 11/29/ | Office | Physical Therapy | Genna Villegas, PT | | | 2019 | Visit | | [address] | | | | | | [place], | | | | | | [place] [address] | | | | | | [phone] | | | | | | | | +--------+ + + + + | 12/12/ | Clinical | | | | | 2019 | Support | | | | | | Staff | | | | +--------+ + + + + | 12/12/ | Office | Hematology & | Taz Mcneal, | | | 2018 | Visit | Oncology | OLYA [address] [facility] | | | | | | [address] | | | | | | [place], [place] | | | | | | [address] | | | | | | [phone] | | | | | | | | +--------+ + + + + | 12/12/ | Appointment | Hematology & | Gen Elizabeth [address] | | | 2018 | | Oncology | [place] | | | | | | [place] [address] | | +--------+ + + + + as of this encounter Results ERCP (10/23/2018 8:43 AM) + + + | Narrative | Performed At | + + + | MRN: | [facility] | | [id number] Date: 10/23/2018Patient Name: Elaine Gonzalez #: | ENDOSCOPY | | [id number] of : 1945CSN: [id number] Type: | | | AmbulatoryRoom: GI 3Procedure: | | | ERCPIndications: elevated LFTs, hx of metastatic PDAC | | | with new simón dil and early | | | satietyProviders: KELLY PRINCE MD | | | (Doctor), KENYA FELIPE RN | | | (Nurse), BETY ORTIZ (Retail Team Leader)Referring | | | MD: CARLOS ALAS JR, [...] | procedure. The Olympus | | | [id number] Therapeutic Endoscope #[id number] | | | was introduced through the | | | mouth, and advanced to the | | | duodenum and used to inject contrast into the bile duct. | | | The Olympus [id number] | | | Duodenoscope #[id number] was | | | introduced through the mouth, and advanced to the | | | duodenum and used to locate | | | the major papilla. The | | | Olympus [id number]-[id number] Peds Colonooscope #[id number] was | | | introduced through the mouth, | | | and advanced to the duodenum | | | and used to locate the major papilla. The ERCP | | | was accomplished without | | | difficulty. The patient | | | tolerated the procedure well.Estimated Blood Loss: Estimated | | | blood loss: none.Findings: The body shop supervisor film was normal. The | | | [...] for | | | symptoms of progressive GOOBSRINITHA K MD SURESH10/23/2018 10:36:19 | | | AMNumber of Addenda: 0Note Initiated On: 10/23/2018 8:43 [facility] Letter | | | to: STEFFI [...]
--- OUTSIDE RECORDS SUMMARY | ~2018-11-11 | XMS | Encounter Summary ---
Demographics + + + | Address | [address] | | | [place] [address] | + + + | Home Phone [...] | | | | | [place] [address] | | + + + + + Care Team Providers + +------+ + | Care Handbag Operator Name | Role | Phone | [...] | | | | adenocarcino | ,PhD 1683 | | | | | | ma (HCC) | [address] | | | | | | Liver | [place], | | | | | | metastases | [place] | | | | | | (HCC) | [address] | | | | | | Procedures | Phone: | | | | | | CT CHEST, | [phone] | | | | | | ABDOMEN AND | Fax: | | | | | | PELVIS W IV | [phone] | | | | | | CONTRAST [...] | | | | adenocarcino | ,PhD 3693 | | | | | | ma (HCC) | [address] | | | | | | Liver | [place], | | | | | | metastases | [place] | | | | | | (HCC) | [address] | | | | | | Procedures | Phone: | | | | | | CT CHEST, | [phone] | | | | | | ABDOMEN AND | Fax: | | | | | | PELVIS W IV | [phone] | | | | | | CONTRAST [...] | | | | adenocarcino | ,PhD 9349 | | | | | | makeda ([facility]) | [address] | | | | | | Liver | [place], | | | | | | metastases | [place] | | | | | | ([facility]) | [address] | | | | | | Procedures | Phone: | | | | | | CT CHEST, | [phone] | | | | | | ABDOMEN AND | Fax: | | | | | | PELVIS W IV | [phone] | | | | | | CONTRAST | | | + +--------+ + + + + Encounter Details +--------+ + + + + | Date | Type | Department | Care Team | Description | +--------+ + + + + | 10/17/ | Hospital | Radiology/Imaging | Toni Mccrary, | | | 2019 | Encounter | Lab at [facility] [address] | ,PhD [address] | | | | | [address] | [place], [place] | | | | | Mailcode: [facility] | [address] | | | | | [facility] | [phone] | | | | | and [address] | | | | | | [place], [place] | | | | | | [address] | | | | | | [phone] | | | +--------+ + + + [...] | 1 | 09/13/19 | | | ulxoff-iejiprve-tkep | meals and 1 | capsule | [...] | | | | | | [place], [place] | | | | | | [address] | | | | | | [phone] | | | | | | | | +--------+ + + + + | 11/21/ | Office | Hematology & | Toni Mccrary, | | | 2019 | Visit | Oncology | PhD [address] | | | | | | [place], [place] | | | | | | [address] | | | | | | [phone] | | | | | | | [...] Rd | | | | | | [place], [place] | | | | | | [address] | | | | | | [phone] | | | | | | | | +--------+ + + + + | 11/28/ | Appointment | Hematology & | Gen Elizabeth [address] | | | 2018 | | Oncology | [place], | | | | | | [place] [address] | | +--------+ + + + + | 11/29/ | Office | Physical Therapy | Genna Villegas, PT | | | 2018 | Visit | | [address] | | | | | | [place], | | | | | | [place] [address] | | | | | | [phone] | | | | | | | [...] Rd | | | | | | [place] | | | | | | [address] | | | | | | [phone] | | | | | | | | +--------+ + + + + | 12/12/ | Appointment | Hematology & | Onc, Gen [address] | | | 2018 | | Oncology | [place] | | | | | | [place] [address] | | +--------+ + + + + [...]
--- OUTSIDE RECORDS SUMMARY | ~2018-11-11 | XMS | Encounter Summary ---
Demographics + + + | Address | [address] | | | [place] [address] | + + + | Home Phone [...] | | | | | [place] [address] | | + + + + + Care Team Providers + +------+ + | Care Machine Shop Repair Technician Name | Role | Phone | [...] | | | | Mailcode: Center | [place], [place] | | | | | [facility] and | [address] | | | | | [facility] 2 | [phone] | | | | | [place], [place] | | | | | | [address] | | | | | | [phone] | | | +--------+ + + + [...] DAY | | | | | | [place], [place] | | | | | | [address] | | | | | | [phone] | | | | | | | | +--------+ + + + + | 11/21/ | Office | Hematology & | Toni Mccrary, | | | 2018 | Visit | Oncology | MDPhD [address] | | | | | | [place], [place] | | | | | | [address] | | | | | | [phone] | | | | | | | [...] Rd | | | | | | [place], [place] | | | | | | [address] | | | | | | [phone] | | | | | | | | +--------+ + + + + | 11/28/ | Appointment | Hematology & | Gen Elizabeth [address] | | | 2019 | | Oncology | [place], | | | | | | [place] [address] | | +--------+ + + + + | 11/29/ | Office | Physical Therapy | Genna Villegas, PT | | | 2019 | Visit | | [address] | | | | | | [place], | | | | | | [place] [address] | | | | | | [phone] | | | | | | | [...] [place] | | | | | | [address] | | | | | | [phone] | | | | | | | | +--------+ + + + + | 12/12/ | Appointment | Hematology & | Gen Elizabeth [address] | | | 2019 | | Oncology | [place] | | | | | | [place] [address] | | +--------+ + + + + as of this encounter Visit Diagnoses Not on filein this encounter"
--- OUTSIDE RECORDS SUMMARY | ~2018-11-11 | XMS | Encounter Summary ---
Demographics + + + | Address | [address] | | | [place] [address] | + + + | Home Phone [...] | | | | | [place] [address] | | + + + + + Care Team Providers + +------+ + | Care Inorganic Chemistry Professor Name | Role | Phone | [...] | | [address] | [place] [address] | | | | | Mailcode: [place] | | | | | | for Health and | | | | | | Healing, [address] | | | | | | [place], [place] | | | | | | [address] | | | | | | [phone] | | | +--------+ + + + [...] | 1 | 09/13/19 | | | sdtsqy-wxwzgtpp-wpdw | meals and 1 | capsule | [...] [place] | | | | | | [address] | | | | | | [phone] | | | | | | | | +--------+ + + + + | 11/21/ | Office | Hematology & | Toni Mccrary, | | | 2018 | Visit | Oncology | PhD [address] | | | | | | [place] | | | | | | [address] | | | | | | [phone] | | | | | | | [...] [place] | | | | | | [address] | | | | | | [phone] | | | | | | | | +--------+ + + + + | 11/28/ | Appointment | Hematology & | Onc, Gen [address] | | | 2019 | | Oncology | [place] | | | | | | [place] [address] | | +--------+ + + + + | 11/29/ | Office | Physical Therapy | Genna Villegas PT | | | 2019 | Visit | | [address] | | | | | | [place], | | | | | | [place] [address] | | | | | | [phone] | | | | | | | | +--------+ + + + + | 12/12/ | Clinical | | | | | 2019 | Support | | | | | | Staff | | | | +--------+ + + + + | 12/12/ | Office | Hematology & | Taz Mcneal, | | | 2018 | Visit | Oncology | OLYA [address] [facility] | | | | | | [address] | | | | | | [place] | | | | | | [address] | | | | | | [phone] | | | | | | | | +--------+ + + + + | 12/12/ | Appointment | Hematology & | [address]c[facility] [address] | | | 2019 | | Oncology | [place] | | | | | | [place] [address] | | +--------+ + + + + as of this encounter Procedures + +--------+ + + + | Procedure Name | Priori | Date/Time | Associated Diagnosis | Comments | | | ty | | | | + +--------+ + + + | [facility] GI (19-), | Routin | 10/03/2018 | Pancreatic | Results for this | | SERUM - OLP | e | 1:28 PM | adenocarcinoma (HCC) | procedure are in the | | | | PDT | | results section. | + +--------+ + + + | [facility] GI (19-), | Routin | 10/03/2018 | Pancreatic | [...] in this encounter Results [facility] (19-), SERUM (10/03/2018 1:28 PM) + + + + + | Component | Value | Ref Range | Performed At | + + + + + | [facility] GI (19-9) | 2,021.0 (H) | <=37.0 U/mL | [facility] | | [facility] | | | SERVICES, CORE | + + + + + + + | Specimen | + + | Blood - Blood | + + + + + + + | Performing | Address | City/State/Zipcode | Phone Number | | Organization | | | | + + + + + | [facility] | [address] [facility] [address] | [place] [address] | | | SERVICES, CORE | [address] | | | + + + + + CMP, POC (BMP+LFT) (09/19/2018 2:17 PM) + + + + + | Component | Value | Ref Range | Performed At | + + + + + | SODIUM, POC | 141 | 134 - 143 mmol/L | [facility], | | | | | POINT OF [...] 7.2 | 6.4 - 8.2 g/dL | [facility] [...] + + | [facility] | [address] | [place] [address] | | | OF CARE TESTS | | | | + + + + + CBC+JULIA CHARLTON (09/19/2018 2:13 PM) + + + + [...] | [facility], POINT | [address] | [place] [address] | | | OF CARE TESTS | | | | + + + + + [facility] GI (), SERUM (09/19/2018 1:50 PM) + + + + + | Component | Value | Ref Range | Performed At | + + + + + | [facility] () | 4,451.4 (H) | <=37.0 U/mL | [...] + + + + + | [facility] [employer] | [address] | [place] [address] | | | SERVICES, CORE | [address] | | | + + + + + in this encounter Visit Diagnoses + + | Diagnosis | + + | Pancreatic adenocarcinoma (HCC) | + + | Malignant neoplasm of pancreas, part unspecified | + +"
--- OUTSIDE RECORDS SUMMARY | ~2018-11-11 | XMS | Encounter Summary ---
Demographics + + + | Address | [address] | | | [place] [address] | + + + | Home Phone [...] | | | | | [place] [address] | | + + + + + Care Team Providers + +------+ + | Care Rn Hospital Name | Role | Phone | + [...] | | | | | | | [address] | | | | | | | [address] | | | | | | | [address] | | | | | | | [place], [place] | | | | | | | [address] | | | | | | | Phone: | | | | | | | [phone] | | | | | | | Fax: | | | | | | | [phone] | + +--------+ + + + + Encounter Details +--------+---------+ + + + | Date | Type | Department | Care Team | Description | +--------+---------+ + + + | 09/11/ | Office | [facility] | Nunu Nugent, | Subjective visual | | 2019 | Visit | [facility] | [address] | disturbance (Primary | | | | Jasiel Baker [address] | Dx); Cystoid | | | | [address] | [facility] [place] | macular edema, left | | | | Mailcode: [facility] | [address] | eye | | | | [place], [place] | [phone] | | | | | [address] | | | | | | [phone] | | | +--------+---------+ + + + [...] or migraine withou t headache. Contact your business dean if you experience these symptoms. in this encounter Progress Notes Wilfrid Cummins MD - 09/11/2018 8:15 AM PSTFormatting of this note may be different from guillermina posadas original. [facility] Progress Note 09/11/2018 72 y.o. female [...] mouth twice daily as needed. ) Fish Oil-[place]-3 Fatty Acids Take 1 capsule by mouth [...] Hx Examination: See Ophthalmology Module Attestations: The help desk technician, under the supervision of the physician, [...] | | | | | | [place] [facility] [place] | | | | | | [address] | | | | | | [phone] | | | | | | | | +--------+ + + + + | 11/21/ | Office | Hematology & | Toni Mccrary, | | | 2018 | Visit | Oncology | PhD Mery [address] | | | | | | [place] | | | | | | [address] | | | | | | [phone] | | | | | | | [...] [address] | | | | | | [place], [place] | | | | | | [address] | | | | | | [phone] | | | | | | | | +--------+ + + + + | 11/28/ | Appointment | Hematology & | Onc, Gen [address] | | | 2019 | | Oncology | [place], | | | | | | [place] [address] | | +--------+ + + + + | 11/29/ | Office | Physical Therapy | Genna Villegas, PT | | | 2018 | Visit | | [address] | | | | | | [place], | | | | | | [place] [address] | | | | | | [phone] | | | | | | | | +--------+ + + + + | 12/12/ | Clinical | | | | | 2019 | Support | | | | | | Staff | | | | +--------+ + + + + | 12/12/ | Office | Hematology & | Fredis Taz, | | | 2018 | Visit | Oncology | [place] [address] [facility] | | | | | | [address] | | | | | | [place] | | | | | | [address] | | | | | | [phone] | | | | | | | | +--------+ + + + + | 12/12/ | Appointment | Hematology & | Onc, Gen [address] | | | 2018 | | Oncology | [place] | | | | | | [place] [address] | | +--------+ + + + + [...] Performed At | + + + | Fuel Assembler | KARL DALTON | | DocumentationRight EyeQuality: [...] + | [facility] | [address] | [place] [address] | | | INSTITUTE | [place]. | [...]
--- OUTSIDE RECORDS SUMMARY | ~2018-11-11 | XMS | Encounter Summary ---
Demographics + + + | Address | [address] | | | [place] [address] | + + + | Home Phone | | + + + | Preferred Language | Unknown | + + + | Marital Status | | + + + | Mandaeism Affiliation | NRP | + + + [...] | | | | | [place] [address] | | + + + + + Care Team Providers + +------+ + | Care Applications Systems Engineer Name | Role | Phone | [...] | | 2019 | | [facility] | ,PhD [address] | (apixaban 5 mg (74 | | | | for [facility] | [address] [place], [place] | tabs) oral | | | | [address] | [address] | tablets,dose pack) | | | | Mailcode: [facility] | [phone] | | | | | for Health and | | | | | | Healing, [address] | | | | | | [place], [place] | | | | | | [address] | | | | | | [phone] | | | +--------+--------+ + + + [...] | | | | | | [place], [place] | | | | | | [address] | | | | | | [phone] | | | | | | | | +--------+ + + + + | 11/21/ | Office | Hematology & | Toni Mccrary, | | | 2018 | Visit | Oncology | PhD [address] | | | | | | [place] | | | | | | [address] | | | | | | [phone] | | | | | | | | +--------+ + + + + | 11/28/ | Clinical | | | | | 2018 | Support | | | | | | Staff | | | | +--------+ + + + + | 11/28/ | Office | Hematology & | Taz Mcneal, | | | 2018 | Visit | Oncology | [place] [address] | | | | | | [address] | | | | | | [place] | | | | | | [address] | | | | | | [phone] | | | | | | | | +--------+ + + + + | 11/28/ | Appointment | Hematology & | Gen [place] [address] | | | 2019 | | Oncology | [place] | | | | | | [place] [address] | | +--------+ + + + + | 11/29/ | Office | Physical Therapy | Genna Villegas PT | | | 2019 | Visit | | [address] | | | | | | [place], | | | | | | [place] [address] | | | | | | [phone] | | | | | | | [...] Rd | | | | | | [place], [place] | | | | | | [address] | | | | | | [phone] | | | | | | | | +--------+ + + + + | 12/12/ | Appointment | Hematology & | [address] | | | 2018 | | Oncology | [place] | | | | | | [place] [address] | | +--------+ + + + + [...]
--- OUTSIDE RECORDS SUMMARY | ~2018-11-11 | XMS | Encounter Summary ---
Demographics + + + | Address | [address] | | | [place] [address] | + + + | Home Phone [...] | | | | | [place] [address] | | + + + + + Care Team Providers + +------+ + | Care Elementary Supervisor Name | Role | Phone | [...] | | 2019 | | [facility] [place] | ,PhD [address] | (morphine ER 15 mg | | | | for [facility] | [address] [place], [place] | ER) | | | | [address] | [address] | | | | | Mailcode: [place] | [phone] | | | | | for Health and | | | | | | Healing, [address] | | | | | | [place], [place] | | | | | | [address] | | | | | | [phone] | | | +--------+--------+ + + + [...] [place] | | | | | | [address] | | | | | | [phone] | | | | | | | | +--------+ + + + + | 11/21/ | Office | Hematology & | Toni Mccrary, | | | 2019 | Visit | Oncology | PhD [address] | | | | | | [place] | | | | | | [address] | | | | | | [phone] | | | | | | | [...] [place] | | | | | | [address] | | | | | | [phone] | | | | | | | | +--------+ + + + + | 11/28/ | Appointment | Hematology & | [facility] [address] | | | 2019 | | Oncology | [place] | | | | | | [place] [address] | | +--------+ + + + + | 11/29/ | Office | Physical Therapy | Genna Villegas PT | | | 2019 | Visit | | [address] | | | | | | [place], | | | | | | [place] [address] | | | | | | [phone] | | | | | | | | +--------+ + + + + | 12/12/ | Clinical | | | | | 2018 | Support | | | | | | Staff | | | | +--------+ + + + + | 12/12/ | Office | Hematology & | Taz Mcneal, | | | 2018 | Visit | Oncology | [place] [address] | | | | | | [address] | | | | | | [place], [place] | | | | | | [address] | | | | | | [phone] | | | | | | | | +--------+ + + + + | 12/12/ | Appointment | Hematology & | [facility] [address] | | | 2018 | | Oncology | [place] | | | | | | [place] [address] | | +--------+ + + + + as of this encounter Visit Diagnoses Not on filein this encounter"
--- OUTSIDE RECORDS SUMMARY | ~2018-11-11 | XMS | Encounter Summary ---
Demographics + + + | Address | [address] | | | [place] [address] | + + + | Home Phone [...] | | | | | [place] [address] | | + + + + + Care Team Providers + +------+ + | Care Air Tool Operator Name | Role | Phone | [...] | | 2019 | | [facility] | ,PhD [address] | (apixaban 5 mg oral | | | | for [facility] | [address] [place], [place] | tablet) | | | | [address] | [address] | | | | | Mailcode: [place] | [phone] | | | | | for Health and | | | | | | Healing, [address] | | | | | | [place], [place] | | | | | | [address] | | | | | | [phone] | | | +--------+--------+ + + + [...] [place] | | | | | | [address] | | | | | | [phone] | | | | | | | | +--------+ + + + + | 11/21/ | Office | Hematology & | Toni Mccrary, | | | 2018 | Visit | Oncology | PhD [address] | | | | | | [place] | | | | | | [address] | | | | | | [phone] | | | | | | | [...] [address] | | | | | | [place] | | | | | | [address] | | | | | | [phone] | | | | | | | | +--------+ + + + + | 11/28/ | Appointment | Hematology & | Gen [address] | | | 2019 | | Oncology | [place] | | | | | | [place] [address] | | +--------+ + + + + | 11/29/ | Office | Physical Therapy | Genna Villegas PT | | | 2019 | Visit | | [address] | | | | | | [place], | | | | | | [place] [address] | | | | | | [phone] | | | | | | | [...] [address] | | | | | | [place] | | | | | | [address] | | | | | | [phone] | | | | | | | | +--------+ + + + + | 12/12/ | Appointment | Hematology & | Onc, Gen [address] | | | 2019 | | Oncology | [place] | | | | | | [place] [address] | | +--------+ + + + + [...]
--- OUTSIDE RECORDS SUMMARY | ~2018-11-11 | XMS | Encounter Summary ---
Demographics + + + | Address | [address] | | | [place] [address] | + + + | Home Phone [...] | | | | | [place] [address] | | + + + + + Care Team Providers + +------+ + | Care Shredding Machine Operator Name | Role | Phone [...] | 2019 | Encounter | [facility] | ,PhD [address] | | | | | [facility] | [place], [place] | | | | | [address] | [address] | | | | | Mailcode: [place] | [phone] | | | | | for Health and | | | | | | Healing, [address] | | | | | | [place], [place] | | | | | | [address] | | | | | | [phone] | | | +--------+ + + + [...] DAY | | | | | | [place], [place] | | | | | | [address] | | | | | | [phone] | | | | | | | | +--------+ + + + + | 11/21/ | Office | Hematology & | Toni Mccrary, | | | 2018 | Visit | Oncology | PhD L[address] | | | | | | [facility] [place] | | | | | | [address] | | | | | | [phone] | | | | | | | [...] Rd | | | | | | [place], [place] | | | | | | [address] | | | | | | [phone] | | | | | | | | +--------+ + + + + | 11/28/ | Appointment | Hematology & | Onc, Gen [address] | | | 2019 | | Oncology | [place], | | | | | | [place] [address] | | +--------+ + + + + | 11/29/ | Office | Physical Therapy | Genna Villegas, PT | | | 2019 | Visit | | [address] | | | | | | [place], | | | | | | [place] [address] | | | | | | [phone] | | | | | | | [...] [place] | | | | | | [address] | | | | | | [phone] | | | | | | | | +--------+ + + + + | 12/12/ | Appointment | Hematology & | [address] | | | 2018 | | Oncology | [place] | | | | | | [place] [address] | | +--------+ + + + + as of this encounter Visit Diagnoses Not on filein this encounter"
--- OUTSIDE RECORDS SUMMARY | ~2018-11-11 | XMS | Clinical Summary ---
Demographics + + + | Address | [address] | | | [place] [address] | + + + | Home Phone [...] | | | | | [place] [address] | | + + + + + Care Team Providers + +------+ + | Care Fire Crew Specialist Name | Role | Phone | + +------+ + | Steffi Barraza MD | PP | | + +------+ + Source Comments KARL is fully live on both [facility] Ambulatory and [facility] InPatient.[facility] Allergies No Known Allergies Current Medications + [...] | 02/2 | | Activ | | gmjbvl-eepryabz-erjl | meals and 1 | capsule | [...] Noted Date | + + + | Chemotherapy-induced neuropathy (HCC) | 11/08/2018 | + + + | Gastroesophageal reflux [...] + + + + + | Overview: Dora-Essie following CE IOL 06/19/17 By history, | [...] + + | 11/09/ | Telephone | | Toni Olivera, | Scheduling | | 2018 | | | PhD BARB | | +--------+ + + + + | 11/09/ | Insights Strategist | | Toni Olivera, | Malignant neoplasm | | 2018 | | | PhD BARB | of pancreas, | | | | | | unspecified location | | | | | | of malignancy (HCC) | | | | | | (Primary Dx) | +--------+ + + + + 11/09/ | Insights Strategist | | Toni Olivera, | | | 2018 | | | PhD BARB | | +--------+ + + + + 11/08/ | MyChart | | Toni Olivera, | RE: Weakness and | | 2019 | Encounter | | PhD BARB | Numbness Following | | | | | | Chemothearpy | +--------+ + + + + | 11/08/ | Telephone | | Toni Olivera, | Telephone follow-up | | 2019 | | | PhD BARB | | +--------+ + + + + | 11/02/ | Telephone | | Toni Olivera, | Scheduling | | 2019 | | | PhD [...] + | 10/31/ | Hospital | | Onc Gen | | | 2018 | Encounter | | | | +--------+ + + + + | 10/31/ | Hospital | | Onc, Gen | | | 2019 | Encounter | | | | +--------+ + + + + | 10/31/ | MyChart | | Taz Mcneal, | RE:Prescriptions | | 2019 | Encounter | | PA-C | | +--------+ + + + + | 10/31/ | Refill | | Toni Olivera, | Refill Request | | 2018 | | | MDPhD | (apixaban 5 mg oral | | | | | | tablet) | +--------+ + + + + | 10/30/ | Insights Strategist | | Toni Olivera, | | | 2019 | | | PhD BARB | | +--------+ + + + + | 10/30/ | Telephone | | Toni Olivera, | Refill Request | | 2018 | | | PhD BARB | (apixaban 5 mg) | +--------+ + + + + | 10/29/ | Refill | | Toni Olivera, | Refill Request | | 2018 | | | PhD BARB | | +--------+ + + + + 10/25/ | Telephone | | Rosemarie Galan RD | Medical nutrition | | 2018 | | | | therapy | +--------+ + + + 10/25/ | Telephone | | Toni Olivera, | Appointment Question | | 2018 | | | PhD BARB | (Bio Stent ) | +--------+ + + + + | 10/24/ | Refill | | Toni Olivera | Refill Request | | 2019 | | | PhD BARB | (morphine [...] | | 2019 | Event | | ZAY Urrutia | | +--------+ + + + + | 10/22/ | Telephone | | Toni Olivera, | Appointment Question | | 2018 | | | PhD BARB | | +--------+ + + + + | 10/19/ | Transcribe | | Transcribe | | | 2018 | Orders | | Abigail Provider, | | | | | | | | +--------+ + + + + | 10/19/ | Telephone | | Toni Olivera, | Care Coordination | | 2018 | | | MDPhD | (ERCP); Radiology | | | | [...] + + + + | 10/19/ | Insights Strategist | | Haresh Alas W | 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 (Primary | | | | | | Dx) | +--------+ + + + + | 10/18/ | Insights Strategist | | Toni Olivera, | | | 2018 | | | PhD BARB | | +--------+ + + + + | 10/17/ | Hospital | | Toni Olivera, | | | 2018 | Encounter | | PhD BARB | | +--------+ + + + + | 10/17/ | Office | | Toni Olivera, | Pancreatic | | 2018 | Visit | | ,PhD | adenocarcinoma (HCC) | [...] | | 2018 | Visit | | PALjC | adenocarcinoma (HCC) | | | | [...] | Procedure | | | | | 2018 | Pass | | | | +--------+ + + + + | 10/16/ | Insights Strategist | | Toni Olivera, | | | 2018 | | | PhD BARB | | +--------+ + + + + | 10/16/ | Insights Strategist | | Toni Olivera, | Pancreatic | | 2018 | | | PhD BARB | adenocarcinoma (HCC) | | | | | | (Primary Dx); Liver | | | | | | metastases (HCC) | +--------+ + + + + | 10/09/ | Telephone | | Patrick Nazario MD | Medication Questions | | 2019 | | | | | +--------+ + + + + | 10/09/ | Refill | | Toni Olivera, | Refill Request | | 2018 | | | ,PhD | (apixaban 5 mg (74 | | | | | | tabs) oral | | | | | | tablets,dose pack) | +--------+ + + + + 10/08/ | Hospital | | A, Pod | | 2018 | Encounter | | | | +--------+ + + + + 10/03/ | Hospital | | A, Pod | | | 2018 | Encounter | | | | +--------+ + + + + | 10/03/ | MyChart | | Rufus Santiago, | RE: Simethicone | 2018 | Encounter | | ANP,ACHPN | | +--------+ + + + + | 10/03/ | Documentati | | Yuly Arboleda | Medical nutrition | | 2018 | on | | | therapy | +--------+ + + + + | 10/02/ | Insights Strategist | | Toni Olivera, | | | 2018 | | | PhD BARB | | +--------+ + + + + | 10/02/ | Insights Strategist | | Toni Olivera, | | | 2018 | | | PhD BARB | | +--------+ + + + + | 10/01/ | Emergency | | Kwan Mishra, | | | 2018 | | | | | +--------+ + + + + 09/27/ | Office | | Toni Winchester, | Pancreatic | | 2019 | Visit | | | adenocarcinoma (HCC) | | | | | | (Primary Dx) | +--------+ + + + + | 09/27/ | MyChart | | Rufus Santiago, | Pain Medication | | 2018 | Encounter | | CIERRA BAUTISTA | | +--------+ + + + + 09/27/ | Refill | | Rufus Santiago, | Refill Request | | 2018 | | | CIERRA BAUTISTA | | +--------+ + + + + 09/27/ | Telephone | | Toni Olivera, | Lab Draw | | 2019 | | | MDPhD | | +--------+ + + + 09/26/ | Hospital | | A, Pod | | | 2019 | Encounter | | | | +--------+ + + + + | 09/26/ | Documentati | | Work, Social | Social Work Notes | | 2018 | on | | | (social work) | +--------+ + + + + | 09/26/ | Telephone | | Toni Olivera, | Other | | 2018 | | | PhD BARB | | +--------+ + + + + | 09/25/ | Insights Strategist | | Toni Olivera, | | | 2018 | | | PhD BARB | | +--------+ + + + + | 09/23/ | MyChart | | Toni Olivera | Rash worsening | | 2018 | Encounter | | PhD BARB | | +--------+ + + + + | 09/20/ | Telephone | | Work, Social | Questionnaire | | 2019 | | | | (distress screening) | +--------+ + + + + | 09/19/ | Office | | Taz Mcneal, | Liver metastases | | 2019 | Visit | | PA-C | (HCC) [...] | 09/19/ | Documentati | | Rosemarie Galan RD | Medical nutrition | | 2018 | on | | | therapy | +--------+ + + + + | 09/18/ | Insights Strategist | | Toni Olivera, | | | [...] + | 09/13/ | Telephone | | Adama, Rosemarie, RD | Medical nutrition | | 2019 | | | | therapy | +--------+ + + + + | 09/12/ | Office | | Rufus Santiago, | Pancreatic | | 2018 | Visit | | ANP,ACHPN [...] Request | | 2019 | | | ANP,ACHPN | (Creon) | +--------+ + + + + | 09/11/ | Office | | Nunu Meza, | Subjective visual | | 2018 | Visit | | MD | disturbance (Primary | | | | | | Dx); 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, left | | | | | | eye | +--------+ + + + + | 09/07/ | MyChart | | Toni Olivera, | RE: Chemo schedule | 2018 | Encounter | | PhD BARB | | +--------+ + + + + | 09/06/ | MyChart | | Toni Olivera, | RE: Cheriis dosage | 2018 | Encounter | | PhD BARB | | +--------+ + + + + | 09/05/ | Hospital | | A, Pod | | 2018 | Encounter | | | | +--------+ + + + + | 09/05/ | Documentati | | Rosemarie Galan RD | Medical nutrition | | 2018 | on | | | therapy | +--------+ + + + + | 09/04/ | Refill | | Toni Olivera, | Symptom Management | | 2019 | | | PhD BARB | | +--------+ + + + + | 09/04/ | Telephone | | Toni Olivera, | Prior Authorization | | 2018 | | | PhD BARB | Request (apixaban 5 | | | | | | mg (74 tabs) oral | | | | | | tablets,dose pack) | +--------+ + + + + | 09/03/ | Insights Strategist | | Toni Olivera, | | | 2018 | | | PhD BARB | | +--------+ + + + + 08/31/ | Cayden | | Rufus Santiago, | Appointment Date | 2018 | Encounter | | CIERRA BAUTISTA | | +--------+ + + + + | 08/31/ | Shinet | | Toni Olivera, | Meds Mix | 2018 | Encounter | | PhD BARB | | +--------+ + + + + | 08/29/ | Hospital | | Ofe Narayanan | | | 2018 | Encounter | [...] + + + + | 08/28/ | Insights Strategist | | Toni Olivera, | | | 2019 | | | PhD BARB | | +--------+ + + + + | 08/24/ | Telephone | | Martin Carrero, | Follow-up encounter | | 2018 | | | MD [...] | 08/23/ | Telephone | | Martin Carreor, | | | 2018 | | | MD | | +--------+ + + + + | 08/23/ | Documentati | | Toni Olivera, | Genetic test (Tempus | | 2018 | on | | PhD BARB | xT) | +--------+ + + + + | 08/22/ | Hospital | | Toni Olivera, | | | 2018 | Encounter | | PhD BARB | | +--------+ + + + + | 08/22/ | Hospital | | A Pod | | | 2018 | Encounter | | | | +--------+ + + + + | 08/22/ | Documentati | | Work, Social | Social Work Notes | | 2018 | on | | | | +--------+ + + + + 08/22/ | Insights Strategist | | Toni Olivera, | Pancreatic | | 2018 | | | PhD BARB | adenocarcinoma (HCC) | | | | | | (Primary Dx); Liver | | | | | | metastases (HCC) | +--------+ + + + + 08/22/ | Documentati | | Rosemarie Galan [...] + + + + | 08/22/ | Insights Strategist | | Martin Carrero, | Pancreatic | | 2018 | | | MD | adenocarcinoma (HCC) | | | | | | (Primary Dx); | | | | | | Central line | | | | | | clotted, initial | | | | | | encounter (HCC) | +--------+ + + + + | 08/21/ | Office | | Toni Olivera, | Pancreatic | | 2018 | Visit | | ,PhD | adenocarcinoma (HCC) | [...] | on | | PhD BARB | (randall, | | | | | | Chacha) | +--------+ + + + + | 08/21/ | Documentati | | Toni Olivera, | Genetic test | | 2018 | on | | PhD BARB | (Hussain CDx) | +--------+ + + + + | 08/20/ | Insights Strategist | | Toni Olivera, | | | 2018 | | | PhD BARB | | +--------+ + + + + | 08/16/ | Telephone | | Martin Carrero, | Pain | | 2018 | | | | | +--------+ + + + + | 08/16/ | Documentati | | Toni Olivera, | | | 2018 | on | | PhD BARB | | +--------+ + + + + | 08/15/ | Insights Strategist | | Toni Olivera, | | | 2018 | | | PhD BARB | | +--------+ + + + + | 08/15/ | Insights Strategist | | Toni Olivera, | | | 2018 | | | PhD BARB | | +--------+ + + + + | 08/15/ | Documentati | | Toni Olivera, | Genetic test | | 2018 | on | | PhD BARB | (Rhondaa ) | +--------+ + + + + | 08/15/ | Documentati | | Toni Olivera, | Scheduling | | 2018 | on | | PhD BARB | (Olegario | | | | | | e) | +--------+ + + + + | 08/14/ | Telephone | | Toni Olivera, | Telephone follow-up | | 2018 | | | PhD BARB | | +--------+ + + + + | 08/13/ | Lab | | | Pancreatic | | 2019 | | | | adenocarcinoma (HCC) | [...] + + + + | 08/13/ | Insights Strategist | | Luzmaria Lawrence MD | | | 2018 | | | | | +--------+ + + + + | 08/13/ | Procedure | | | | | 2018 | Pass | | | | +--------+ + + + + | 08/13/ | Hospital | | Toni Olivera, | Canceled (Provider | | 2018 | Encounter | | MDPhD | Request) | +--------+ + + + + from [...] + + | 11/09/ | Procedure | | | | | 2018 | Pass | | | | +--------+ + + + + | 11/21/ | Appointment | | Toni Olivera, | | | 2019 | | | PhD BARB [address] | | | | | | [place], [place] | | | | | | [address] | | | | | | [phone] | | | | | | | | +--------+ + + + + | 11/21/ | Office | | Toni Olivera, | | | 2018 | Visit | | PhD BARB [address] | | | | | | [place], [place] | | | | | | [address] | | | | | | [phone] | | | | | | | | +--------+ + + + + | 11/28/ | Clinical | | | | | 2019 | Support | | | | | | Staff | | | | +--------+ + + + + | 11/28/ | Office | | Taz Mcneal, | | | 2018 | Visit | | OLYA [address] | | | | | | [address] | | | | | | [place], [place] | | | | | | [address] | | | | | | [phone] | | | | | | | | +--------+ + + + + | 11/28/ | Appointment | | Gen Elizabeth [address] | | | 2019 | | | [place], | | | | | | [place] [address] | | +--------+ + + + + | 11/29/ | Office | | Genna Villegas PT | | | 2018 | Visit | | [address] | | | | | | [place], | | | | | | [place] [address] | | | | | | [phone] | | | | | | | [...] [place] | | | | | | [address] | | | | | | [phone] | | | | | | | | +--------+ + + + + | 12/12/ | Appointment | | Gen Elizabeth [address] | | | 2019 | | | [place], | | | | | | [place] [address] | | +--------+ + + + + [...] - | | | | | | /[id number] | | [id number]: Qty: 1 on | | | | [...] | 2,500.9 (H) | <=37.0 U/mL | [facility] | | [facility] | | | SERVICES, CORE | + + + + + + + | Specimen | + + | Blood - Blood | + + + + + + + | Performing | Address | City/State/Zipcode | Phone Number | | Organization | | | | + + + + + | [facility] | [address] | [place] [address] | | | SERVICES, CORE | PARK [...] | 1.80 - 7.70 K/cu mm | [facility] | | | | | SERVICES, | | | | | [facility] | | | [facility] + | | | | | HEALING | + + + + + | NEUTROPHIL # Prelim | 8.00 (H)Comment: | 1.80 - 7.70 K/cu mm | [facility] | | | Preliminary automated | [...] | SERVICES, | | | | | [place] [facility] | | | | | HEALTH [...] | + + + + + | [facility] | [address] | [place] [address] | | | [facility] | | | | | HEALTH + HEALING | | | | + + + + + [facility] - COMPLETE METABOLIC SET (10/31/2018 12:03 [...] >60 mL/min | [facility] | | B[facility]RAINI | | | SERVICES, | | | | | [facility] | | | | | HEALTH + | | | | | HEALING | + + + + + | EGFR NON | >60 | >60 mL/min | [facility] | | -[facility]I | | | SERVICES, | | | [...] <60 mL/min/1.73 sq | SERVICES, | | Chronic Kidney Disease <15 mL/min/1.73 | [facility] | | sq m Kidney Failure Estimated [...] | + + + + + | [facility] | [address] | [place] [address] | | | SERVICES, CENTER FOR | [...] + | MRN: | [facility] | | [id number] Date: 10/23/2018Patient Name: Philip Carlos #: | ENDOSCOPY | | [id number] of : 1945CSN: [id number] Type: | | | AmbulatoryRoom: GI 3Procedure: | | | ERCPIndications: elevated LFTs, hx of metastatic PDAC | | | with new simón dil and early | | | satietyProviders: KELLY PRINCE MD | | | (Doctor), KENYA FELIPE RN | | | (Nurse), BETY ORTIZ (Merchandising Internship)Referring | | | MD: HARESH ALAS JR, MDRequesting Provider: | | | Medicines: Indomethacin 100 mg MI, General | | | AnesthesiaComplications: No immediate [...] | procedure. The Olympus | | | [id number] Therapeutic Endoscope #[id number] | | | was introduced through the | | | mouth, and advanced to the | | | duodenum and used to inject contrast into the bile duct. | | | The Olympus [id number] | | | Duodenoscope #[id number] was | | | introduced through the mouth, and advanced to the | | | duodenum and used to locate | | | the major papilla. The | | | Olympus [id number]-[id number] Peds Colonooscope #[id number] was | | | introduced through the mouth, | | | and advanced to the duodenum | | | and used to locate the major papilla. The ERCP | | | was accomplished without | | | difficulty. The patient | | | tolerated the procedure well.Estimated Blood Loss: Estimated | | | blood loss: none.Findings: The python architect film was normal. The | | | [...] | | | to: STEFFI BARRAZA MD, TOIN OLIVERA MD | | + + + + +---------+ + + | Performing | Address | City/State/[facility] [[email or web address] | Phone Number | | Organization | [...] | 280 (H) | <=60 U/L | [facility] | | | | | SERVICES, CORE | + +---------+ + + | TOTAL PROTEIN, | 6.7 | 6.4 - 8.2 g/dL | [facility] | | PLASMA (LAB) | | | SERVICES, CORE | + +---------+ + + | AST CMNT | No Hemo | | [facility] | | | | [...] [facility] | [address] | [place] [address] | | | SERVICES, CORE | PARK [...] | + +---------+ + + UA 10 FRANSISCO POC (10/17/2018 3:00 PM) + + + [...] + + + + | [facility] | [address] | [place] [address] | | | OF CARE TESTS | | | | + + + + + CULTURE, URINE [facility] (10/17/2018 2:13 PM) + + + + + | Component | Value | Ref Range | Performed At | + + + + + | URINE CULTURE [facility] | Insignificant growth | | [facility] | | | (<10,000 cfu/mL) | | SERVICES, CORE | + + + + + + + | Specimen | + + | Urine | + + + + + + + | Performing | Address | City/State/Zipcode | Phone Number | | Organization | | | | + + + + + | [facility] | [address] | [place] [address] | | | ELISHA TRAMMELL | [address] | | | + + + [...] 0 | 0 - 2 /lpf | [facility] | | | | | SERVICES, [...] | None | None, Few /hpf | [facility] | | | | | SERVICES, CORE | + +---------+ + + + + | Specimen | + + | Urine | + + + + + + + | Performing | Address | City/State/Zipcode | Phone Number | | Organization | | | | + + + + + | [facility] | [address] | [place] [address] | | | SERVICES, CORE | [address] | | | + + + + + URINE SCREEN FOR CULTURE (10/17/2018 2:13 PM) + + + + + | Component | Value | Ref Range | Performed At | + + + + + | URINE SCREEN FOR | Sent for Culture (A) | Negative | [facility] | | CULTURE | | | [...] | + + + + + | [facility] | [address] | [place] [address] | | | SERVICES, [facility] | [address] | | | + + + + + CBC+DIFF,POC (10/17/2018 1:42 PM)Only the most recent of 7 results within the time period is included. + + + + + | Component | Value | Ref Range | Performed At | + + + + + | WBC POC | 5.8 | 3.5 - 10.8 10*3/uL | [facility], | | | | | POINT [...] | + + + + + | [facility], POINT | [address] | [place] [address] | | | OF CARE TESTS | [...] 6.6 | 6.4 - 8.2 g/dL | [facility], | | POC | | [...] POINT | [address] | [place] [address] | | | OF CARE TESTS | | | | + + + + + C. DIFFICILE TOXIN, W/REFLEX CONFIRMATION IF INDETERMINATE RESULTS (10/01/2018 5:38 PM) + + + + + | Component | Value | Ref Range | Performed At | + + + + + | C.DIFFICILE TOXIN | Negative | Negative | [facility] | | | | | SERVICES, CORE | + + + + + + + | Specimen | + + | Stool - Rectum | + + + + + + + | Performing | Address | City/State/Zipcode | Phone Number | | Organization | | | | + + + + + | [facility] | [address] | [place] [address] | | | SERVICESELISHA | [address] | | | + + + + + RAINBOW HOLD TUBE - BLUE TOP (10/01/2018 5:36 PM) + + | Specimen | + + | Blood | + + + + + + + | Performing | Address | City/State/Zipcode | Phone Number | | Organization | | | | + + + + + | [facility] | [address] | [place] [address] | | | VALERIELISHA | [address] | | | + + + [...] | 3.50 - 10.80 K/cu mm | [facility] | | | | | SERVICES, CORE | + + + + + | RED CELL COUNT | 3.69 (L) | 4.00 - 5.20 M/cu mm | [facility] | | | | | SERVICES, CORE | + + + + + | HEMOGLOBIN | 10.1 (L) | 12.0 - 16.0 g/dL | [facility] | | | | | SERVICES, CORE | + + + + + | HEMATOCRIT | 31.4 (L) | 36.0 - 46.0 % | [facility] | | | | | SERVICES, CORE | + + + + + | MCV | 85.1 | 80.0 - 100.0 fL | [facility] | | | | | SERVICES, CORE | + + + + + | MCHC | 32.2 | 32.0 - 36.0 g/dL | [facility] | | | | | SERVICES, CORE | + + + + + | RDW SD | 41.1 | 35.1 - 46.3 fL | [facility] | | | | [...] Increased | 0.0 - 1.0 % | [facility] | | | immature granulocytes | [...] | 1.80 - 7.70 K/cu mm | [facility] | | | | | SERVICES, CORE | + + + + + | LYMPHOCYTE # | 0.42 (L) | 1.00 - 4.80 K/cu mm | [facility] | | [...] [facility] | [address] | [place] [address] | | | SERVICES, CORE | PARK [...] LABORATORY | | (LAB) | | | [facility], CORE | + + + + + | EGFR - | >60 | >60 mL/min | [facility] | | [facility] | | | VALERI, [facility] | + + + + + | EGFR NON | >60 | >60 mL/min | [facility] | | -[facility] | | | [place], [facility] | + + + + + | [...] LABORATORY | | (LAB) | | | [facility], CORE | + + + + + [...] 7.0 | 6.4 - 8.2 g/dL | [facility] | | PLASMA (LAB) | | [...] T CMNT | No Hemo | | [facility] | | | | [...] | + + + + + | [facility] | [address] | [place] [address] | | | VALERI, CORE | [address] | | | + + + + + BLOOD BANK HOLD TUBE - DON T PROCESS (10/01/2018 5:36 PM) + + + + + | Component | Value | Ref Range | Performed At | + + + + + | SPECIMEN COLLECTED, | Sample received with | | [facility] | | HELD | adeq label/volume [...] | + + + + + | [facility] | [address] | [place] [address] | | | SERVICES, | [address] | | | | TRANSFUSION MEDICINE | | | | + + + + + LIPASE, PLASMA (10/01/2018 5:36 PM) + + + + + | Component | Value | Ref Range | Performed At | + + + + + | LIPASE (LAB) | 1,676 (H) | 152 - 353 U/L | [facility] | | | | | SERVICES, CORE | + + + + + + + | Specimen | + + | Blood - Blood | + + + + + + + | Performing | Address | City/State/Zipcode | Phone Number | | Organization | | | | + + + + + | [facility] | [address] | [place] [address] | | | SERVICES, CORE | [address] | | | + + + + + ED INFORMATION EXCHANGE (10/01/2018 4:51 PM) + + + | Narrative | Performed At | + + + | [id number] [id number] Criteria Met PDMP | COLLECTIVE | | [...] MG | | | TABLET 56 RUFUS SANITAGO 0 2018-09-05 OXYCODONE HCL 5 MG TABLET | | | 50 TONI OLIVERA MD 0 2018-08-22 LORAZEPAM 1 MG TABLET 30 | | | TONI OLIVERA MD 0 2018-08-17 ACETAMINOPHEN-COD #3 TABLET 30 | | | [place] [facility] 0 2018-08-13 OXYCODONE HCL 5 MG TABLET 11 LUZMARIA | | | LYO 0 2018-08-13 OXYCODONE HCL 5 MG TABLET 39 [place] LYO 0 | | | 2018-08-10 OXYCODONE [...] (12 | | | mo.) Facility Visits [facility] 1 Total | | | 1 Note: Visits indicate total known visits. Recent | | | Emergency Department Visit Summary Date Facility City State Type | | | Diagnoses or Chief Complaint Oct 01, 2018 [facility] | | | [place] Emergency 10,800. Diarrhea | | | Recent Inpatient Visit Summary No recorded inpatient visits. | | | Care Providers There are no care providers on record at this time. | | | Collective Portal This patient has registered at the [facility] | | | [facility] Emergency Department For more information | | | visit: | | | [email or web address] | | | [email or web address] The above information [...] for additional information. | | | 2019 [employer] - [place], [place] - | | | [email or web address] | | + + + + + | Procedure Note | + + | Service Account, Rtf Results Inbound - 10/01/2018 4:52 PM PDT Formatting of this | | note may be different from the original.[id number]:50MARCIA [id number] Met | | PDMPSecurity and SafetyNo recent [...] 2018-08-17 ACETAMINOPHEN-COD #3 | | TABLET 30 [facility] 0 2018-08-13 OXYCODONE HCL 5 MG TABLET 11 [place] LYO 0 | | 2018-08-13 OXYCODONE HCL 5 MG TABLET 39 [facility] 0 2018-08-10 OXYCODONE HCL 5 MG | | TABLET 30 [facility] 0 2018-07-30 ACETAMINOPHEN-COD #3 TABLET 28 HARESH ALAS, | | MD FRANCISCO 0 2018-07-24 [...] 0 E.D. Visit Count (12 mo.)Facility Visits [facility] | [facility] 1 Total 1 Note: Visits indicate total known visits. Recent | | Emergency Department Visit SummaryDate [facility] State Type Diagnoses or Chief | | Complaint Oct 01, 2018 [facility] [place] Emergency | | 10,800. Diarrhea Recent Inpatient Visit SummaryNo recorded inpatient visits. Care | | ProvidersThere are no care providers on record at this time. YouWeb PortalThis | | patient has registered at the [facility] Emergency Department | | For more information visit: | | [email or web address] The above | | information is provided for the sole purpose of patient treatment. Use of this | | information beyond the terms of Data Sharing Memorandum of Understanding and License | | Agreement is prohibited. In certain cases not all visits may be represented. Consult the | | aforementioned facilities for additional information. 2019 [employer] | | [employer] - [place], MD - [email or web address] | |Rx Summary | |Metric Count | |CS II-V Rx 0 | |CS-II Rx 0 | |Quantity Dispensed 320 | |Unique Prescribers 8 | |Unique Pharmacies 5 | |Benzos 0 | |Opioids 0 | |Long Acting Opioids 0 | | | | | | | |E.D. Visit Count (12 mo.) | |Facility Visits | |[facility] 1 | |Total 1 | |Note: Visits indicate total known visits. | | | |Recent Emergency Department Visit Summary | |Date [facility] City State Type Diagnoses or Chief Complaint | |Oct 01, 2018 [facility] [place] Emergency | | 10,800. Diarrhea | | | | | | | |Recent Inpatient Visit Summary | |No recorded inpatient visits. | | | |Care Providers | |There are no care providers on record at this time. | |YouWeb Portal | |This patient has registered at the [facility] Emergency Departmen t | |For more information visit: [email or web address] | |The above information is provided for the sole purpose of patient treatment. Use of this in formation beyond the terms of Data Sharing Memorandum of Understanding and License Agreement is prohibited. In | |certain cases not all visits may be represented. Consult the aforementioned facilities for additional information. | |2019 [employer]. - [place], [place] - [email or web address] | + + + + + + + | Performing | Address | City/State/Zipcode | Phone Number | | Organization | | | | + + + + + | [facility] | [address], | [place], [place] | [phone] | | TECHNOLOGIES | [address] | [address] | | + + + + + OCT, RETINA (09/11/2018 8:27 AM) + + + | Narrative | Performed At | + + + | [employer]ch[employer]ising [employer] | [place]L [place]TON | | DocumentationRight EyeQuality: [...] | + + + + + | [facility] | [address] | [place] [address] | | | RUTH | Jaxon. | | | + + + + + PROCEDURE NOTE (08/28/2018 12:10 PM)IR PORT PROCEDURE (08/28/2018 9:48 AM) + + + | Narrative | Performed At | + + + | PROCEDURE: Removal of right chest port with placement of new port | [facility] | | PRIMARY PAPER HANGER: Varsha Avalos MD ANGIOGRAPHY ATTENDING: | RADIOLOGY [...] tip of the indwelling Port-A-Cath. A 5 Hong Konger | | | dilator was inserted and [...] exchanged for an 8 | | | Hong Konger peel-away sheath. The new catheter was advanced [...] Res In Interface - 08/29/2018 6:02 PM [facility] PROCEDURE: | | Removal of right chest port with placement of new port PRIMARY PAPER HANGER: Varsha | | MD Robbie ANGIOGRAPHY ATTENDING: [...] tip of the indwelling Port-A-Cath. A 5 Hong Konger dilator was | | inserted and advanced [...] was | | exchanged for an 8 Hong Konger peel-away sheath. The new catheter was advanced [...] PM Preliminary: Maykel Santacruz MD Dictation initiated: Maykel Santacruz | | 08/29/2018 5:41 PM | + + + [...] | 3.50 - 10.80 K/cu mm | [facility] | | | | | SERVICES, [...] 37.8 | 35.1 - 46.3 fL | [facility] [...] | + + + + + | [facility] | [address] | [place] [address] | | | ELISHA TRAMMELL | [address] | | | + + + + + INR (08/22/2018 9:15 AM) + +-------+ + + | Component | Value | Ref Range | Performed At | + +-------+ + + | INR | 1.08 | 0.90 - 1.20 INR | [facility] | | | | | ELISHA [...] | + + + + + | [facility] | [address] | [place] [address] | | | SERVICESELISHA | [address] | | | + + + + + APTT (ACT. PART. THROMBO TIME) (08/22/2018 9:15 AM) + +-------+ + + | Component | Value | Ref Range | Performed At | + +-------+ + + | APTT | 30.3 | 26.0 - 36.0 seconds | [facility] | | | | | ELISHA [...] | + + + + + | [facility] | [address] | [place] [address] | | | SERVICES, CORE | [address] | | | + + + + + PHOSPHORUS, PLASMA (08/22/2018 9:15 AM) + +-------+ + + | Component | Value | Ref Range | Performed At | + +-------+ + + | PHOSPHORUS, PLASMA | 2.4 | 2.4 - 4.7 mg/dL | [facility] | | (LAB) | | | SERVICES, CORE | + +-------+ + + + + | Specimen | + + | Blood - Blood | + + + + + + + | Performing | Address | City/State/Zipcode | Phone Number | | Organization | | | | + + + + + | [facility] | [address] | [place] [address] | | | SERVICES, CORE | [address] | | | + + + + + MAGNESIUM, PLASMA (08/22/2018 9:15 AM) + +-------+ + + | Component | Value | Ref Range | Performed At | + +-------+ + + | MAGNESIUM,PLASMA | 2.3 | 1.6 - 2.6 mg/dL | [facility] | | | | | SERVICES, CORE | + +-------+ + + + + | Specimen | + + | Blood - Blood | + + + + + + + | Performing | Address | City/State/Zipcode | Phone Number | | Organization | | | | + + + + + | [facility] | [address] | [place] [address] | | | SERVICES, CORE | [address] | | | + + + + + LDH TOTAL, PLASMA (08/22/2018 9:15 AM) + +---------+ + + | Component | Value | Ref Range | Performed At | + +---------+ + + | LD TOTAL, PLASMA | 169 | <=250 U/L | [facility] | | | | | SERVICES, ELISHA | + +---------+ + + | LD CMNT | No Hemo | | [facility] | | | | | ELISHA TRAMMELL | + +---------+ + + + + | Specimen | + + | Blood - Blood | + + + + + + + | Performing | Address | City/State/Zipcode | Phone Number | | Organization | | | | + + + + + | [facility] | [address] | [place] [address] | | | ELISHA TRAMMELL | [address] [...] | | | were discussed with the regional vice president surgical sales on 08/13/2018 at | | | approximately [...] MD 08/13/2018 5:07 PM Preliminary: Sacha | Joselito Eastman MD 08/13/2018 2:41 PM Dictation initiated: Sacha Eastman MD 08/13/2018 1:36 PM | |Sequela of recent hepatic wedge resections. A subcapsular collection in contiguity with the segment 8 resection site may represent a postoperative biloma or hematoma. | | | |These results were discussed with the regional vice president surgical sales on 08/13/2018 at approximately 1:45 PM by [...] 1.021Comment: Specific | 1.005 - 1.030 | [facility] | | | [place] performed by | | [facility], CORE | | | refractometry | | | + + + + + + + | Specimen | + + | Urine - Clean catch | + + + + + + + | Performing | Address | City/State/Zipcode | Phone Number | | Organization | | | | + + + + + | [facility] | [address] | [place] [address] | | | SERVICES, CORE | [address] | | | + + + + + from Last 3 [...] | MEDICA | xxxxxxxxxxx | Medica | [phone] | [address] | | | RE A & | | re | [phone] | [place] [address] | | | B | | | | | + +--------+ +--------+ + + | [employer] [employer] | MUTUAL | [phone] | Indemn | [phone] | [employer] [employer] [place] | | MEDICARE SUPPL | OF | | ity | [address] | | | [place] | | | | [phone] | | | MEDICA | | | [...] Self | [birth year] | Work: | [address] | | | al/Marty | | 1946 | [phone] | [place] [address] | | | seferino | | | [address] Home: | | | | | | | | | | | | | | [phone] | | | | | | | [phone] | | + +--------+ +--------+ + +
--- OUTSIDE RECORDS SUMMARY | ~2018-11-11 | XMS | Encounter Summary ---
Demographics + + + | Address | [address] | | | [place] [address] | + + + | Home Phone [...] | | | | | [place] [address] | | + + + + + Care Team Providers + +------+ + | Care Treatment Manager Name | Role | Phone | [...] | [facility] | [address] [place], | | | | | [address] | [place] [address] | | | | | Mailcode: Center | | | | | | for Health and | | | | | | [facility] [address] | | | | | | [place], [place] | | | | | | [address] | | | | | | [phone] | | | +--------+ + + + [...] | | 2018 | | | ,PhD [address] | | | | | | [place], [place] | | | | | | [address] | | | | | | [phone] | | | | | | | | +--------+ + + + + | 11/21/ | Office | Hematology & | Toni Mccrary, | | | 2019 | Visit | Oncology | PhD BARB [address] | | | | | | [place], [place] | | | | | | [address] | | | | | | [phone] | | | | | | | | +--------+ + + + + | 11/28/ | Clinical | | | | | 2018 | Support | | | | | | Staff | | | | +--------+ + + + + | 11/28/ | Office | Hematology & | Taz Mcneal, | | | 2018 | Visit | Oncology | [facility] [address] | | | | | | [address] | | | | | | [place], [place] | | | | | | [address] | | | | | | [phone] | | | | | | | | +--------+ + + + + | 11/28/ | Appointment | Hematology & | Onc, Gen [address] | | | 2019 | | Oncology | [address] [place], | | | | | | [place] [address] | | +--------+ + + + + | 11/29/ | Office | Physical Therapy | Genna Villegas, PT | | | 2019 | Visit | | [address] | | | | | | [place], | | | | | | [place] [address] | | | | | | [phone] | | | | | | | [...] | | | | | | [place], [place] | | | | | | [address] | | | | | | [phone] | | | | | | | | +--------+ + + + + | 12/12/ | Appointment | Hematology & | Onc, Gen [address] | | | 2018 | | Oncology | [address] [place], | | | | | | [place] [address] | | +--------+ + + + + [...] [address] [facility] | [place] [address] | | | OF CARE TESTS | [...] + + | [facility] | [address] [facility] | [place] [address] | | | OF CARE TESTS | | | | + + + + + CANCER AG GI (19-9), SERUM (08/29/2018 8:23 AM) + + + + + | Component | Value | Ref Range | Performed At | + + + + + | CANCER AG GI (19-9) | 8,292.6 (H) | <=37.0 U/mL | [...] [facility] | [address] | [place] [address] | | | SERVICES, CORE | [address] [...] | | | | | | | Mon08/29/18 at 0945 | | | | | [...]
--- OUTSIDE RECORDS SUMMARY | ~2018-11-11 | XMS | Encounter Summary ---
Demographics + + + | Address | [address] | | | [place] [address] | + + + | Home Phone [...] | | | | | [place] [address] | | + + + + + Care Team Providers + +------+ + | Care Laborer Stores Name | Role | Phone | + [...] | 2019 | Encounter | [facility] [place] | ,PhD [address] | | | | | for [facility] He[facility] | [place], [place] | | | | | [address] | [address] | | | | | Mailcode: [place] | [phone] | | | | | for Health and | | | | | | [facility] [address] | | | | | | [place], [place] | | | | | | [address] | | | | | | [phone] | | | +--------+ + + + [...] | | | | | | Ave [place], [place] | | | | | | [address] | | | | | | [phone] | | | | | | | | +--------+ + + + + | 11/21/ | Office | Hematology & | Toni Mccrary, | | | 2018 | Visit | Oncology | MDPhD [address] | | | | | | [place] | | | | | | [address] | | | | | | [phone] | | | | | | | [...] Rd | | | | | | [place], [place] | | | | | | [address] | | | | | | [phone] | | | | | | | | +--------+ + + + + | 11/28/ | Appointment | Hematology & | Onc, Gen [address] | | | 2019 | | Oncology | [place], | | | | | | [place] [address] | | +--------+ + + + + | 11/29/ | Office | Physical Therapy | Genna Villegas, PT | | | 2019 | Visit | | [address] | | | | | | [place], | | | | | | [place] [address] | | | | | | [phone] | | | | | | | | +--------+ + + + + | 12/12/ | Clinical | | | | | 2019 | Support | | | | | | Staff | | | | +--------+ + + + + | 12/12/ | Office | Hematology & | Taz Mcneal, | | | 2018 | Visit | Oncology | [facility] [address] [facility] | | | | | | [address] | | | | | | [place] | | | | | | [address] | | | | | | [phone] | | | | | | | | +--------+ + + + + | 12/12/ | Appointment | Hematology & | Onc, Gen [address] | | | 2019 | | Oncology | [place] | | | | | | [place] [address] | | +--------+ + + + + as of this encounter Visit Diagnoses Not on filein this encounter"
--- OUTSIDE RECORDS SUMMARY | ~2018-11-11 | XMS | Encounter Summary ---
Demographics + + + | Address | [address] | | | [place] [address] | + + + | Home Phone [...] | | | | | [place] [address] | | + + + + + Care Team Providers + +------+ + | Care Home Health Outreach Coordinator Name | Role | Phone | [...] | | | [address] | [facility] | | | | | [facility] | [place], [place] | | | | | [place] [address] | [address] | | | | | [phone] | [phone] | | | | | | | [...] Goode, Thank you for coming to the [facility] Em ergency Department. It was a [...] cannot be sent through Care Everywhere.Cancer: Diarrhea (Polish) in this encounter Medications at Time of [...] | 1 | 09/13/19 | | | qiwjog-ibhdwcvg-tlbu | meals and 1 | capsule | [...] [place] | | | | | | [address] | | | | | | [phone] | | | | | | | | +--------+ + + + + | 11/21/ | Office | Hematology & | Toni Olivera, | | | 2019 | Visit | Oncology | PhD [address] | | | | | | [place] | | | | | | [address] | | | | | | [phone] | | | | | | | [...] Rd | | | | | | [facility] [place] | | | | | | [address] | | | | | | [phone] | | | | | | | | +--------+ + + + + | 11/28/ | Appointment | Hematology & | [facility] [address] | | | 2018 | | Oncology | [place], | | | | | | [place] [address] | | +--------+ + + + + | 11/29/ | Office | Physical Therapy | Genna Villegas PT | | | 2019 | Visit | | [address] | | | | | | [place], | | | | | | [place] [address] | | | | | | [phone] | | | | | | | | +--------+ + + + + | 12/12/ | Clinical | | | | | 2018 | Support | | | | | | Staff | | | | +--------+ + + + + | 12/12/ | Office | Hematology & | Taz Mcneal, | | | 2018 | Visit | Oncology | [facility] [address] | | | | | | [address] | | | | | | [place] | | | | | | [address] | | | | | | [phone] | | | | | | | | +--------+ + + + + | 12/12/ | Appointment | Hematology & | Onc, Gen [address] | | | 2018 | | Oncology | [place] | | | | | | [place] [address] | | +--------+ + + + + [...] | + + + + + | [facility] | [address] [facility] | [place] [address] | | | SERVICES, ELISHA | [address] [...] | + + + + + | [facility] | [address] [facility] | [place] [address] | | | ELISHA TRAMMELL | [address] | | | + + + + + CBC AND AUTO DIFF (10/01/2018 5:36 PM) + + + + + | Component | Value | Ref Range | Performed At | + + + + + | WHITE CELL COUNT | 2.74 (L) | 3.50 - 10.80 K/cu mm | [facility] | | | | | SERVICES, CORE | + + + + + | RED CELL COUNT | 3.69 (L) | 4.00 - 5.20 M/cu mm | [facility] | | | | | SERVICES, CORE | + + + + + | HEMOGLOBIN | 10.1 (L) | 12.0 - 16.0 g/dL | [facility] | | | | | SERVICES, CORE | + + + + + | HEMATOCRIT | 31.4 (L) | 36.0 - 46.0 % | [facility] | | | | | SERVICES, CORE | + + + + + | MCV | 85.1 | 80.0 - 100.0 fL | [facility] | | | | | SERVICES, CORE | + + + + + | MCHC | 32.2 | 32.0 - 36.0 g/dL | [facility] | | | | | SERVICES, CORE | + + + + + | RDW SD | 41.1 | 35.1 - 46.3 fL | [facility] | | | | | [...] Increased | 0.0 - 1.0 % | [facility] | | | immature granulocytes [...] | 1.80 - 7.70 K/cu mm | [facility] | | | | | SERVICES, CORE | + + + + + | LYMPHOCYTE # | 0.42 (L) | 1.00 - 4.80 K/cu mm | [facility] | | | | | [...] | + + + + + | [facility] | [address] | [place] [address] | | | SERVICES, CORE | [address] | | | + + + + + BLOOD BANK HOLD TUBE - DON T PROCESS (10/01/2018 5:36 PM) + + + + + | Component | Value | Ref Range | Performed At | + + + + + | SPECIMEN COLLECTED, | Sample received with | | [facility] | | HELD | adeq label/volume [...] | + + + + + | [facility] | [address] [facility] | [place] [address] | | | SERVICES, | [address] | | | | TRANSFUSION MEDICINE | | | | + + + + + LIPASE, PLASMA (10/01/2018 5:36 PM) + + + + + | Component | Value | Ref Range | Performed At | + + + + + | LIPASE (LAB) | 1,676 (H) | 152 - 353 U/L | [facility] | | | | | [place] | + + + + + + + | Specimen | + + | Blood - Blood | + + + + + + + | Performing | Address | City/State/Zipcode | Phone Number | | Organization | | | | + + + + + | [facility] | [address] | [place] [address] | | | SERVICES, ELISHA | [address] [...] >60 mL/min | [facility] | | [place] | | | SERVICES, CORE | + + + + + | EGFR NON | >60 | >60 mL/min | [facility] | | -[place] | | | SERVICES, CORE | + [...] | + + + + + | [facility] CMNT | No Hemo | | [...] Interpretive Information: <60 mL/min/1.73 sq | SERVICES, [facility] | | m Chronic Kidney Disease <15 [...] | + + + + + | [facility] | [address] | [place] [address] | | | SERVICES, CORE | [address] | | | + + + + + ED INFORMATION EXCHANGE (10/01/2018 4:51 PM) + + + | Narrative | Performed At | + + + | [id number] [id number] Criteria Met PDMP | [facility] | | [...] MG | | | TABLET 56 RUFUS ALVAREZ 0 2018-09-05 OXYCODONE HCL 5 [...] 2018-08-10 OXYCODONE HCL 5 MG TABLET 30 [facility] | | | 2018-07-30 ACETAMINOPHEN-COD [...] (12 | | | mo.) Facility Visits [facility] 1 Total | | | 1 Note: Visits indicate total known visits. Recent | | | Emergency Department Visit Summary Date Facility City State Type | | | Diagnoses or Chief Complaint Oct 01, 2018 [facility] | | | [place] Emergency 10,800. Diarrhea | | | Recent Inpatient Visit Summary No recorded inpatient visits. | | | Care Providers There are no care providers on record at this time. | | | Collective Portal This patient has registered at the [facility] | | | [facility] Emergency Department For more information | | | visit: | | | [email or web address] | | | [email or web address] The above information is provided for the sole purpose of | | | patient treatment. Use of this information beyond the terms of Data | | | Sharing Memorandum of Understanding and License Agreement is | | | prohibited. In certain cases not all visits may be represented. | | | Consult the aforementioned facilities for additional information. | | | 2019 [employer] - [place], [place] - | | | [email or web address] | | + + + + + | Procedure Note | + + | Service Account, Rtf Results Inbound - 10/01/2018 4:52 PM PDT Formatting of this | | note may be different from the original.EEPLWBBRQG21:50MARCIA [id number] Met | | PDMPSecurity and SafetyNo recent [...] 2018-08-17 ACETAMINOPHEN-COD #3 | | TABLET 30 [facility] 0 2018-08-13 OXYCODONE HCL 5 MG TABLET 11 [facility] 0 | | 2018-08-13 OXYCODONE HCL 5 MG TABLET 39 [facility] 0 2018-08-10 OXYCODONE HCL 5 MG | | TABLET 30 [facility] 0 2018-07-30 ACETAMINOPHEN-COD #3 TABLET 28 CARLOS [...] 0 E.D. Visit Count (12 mo.)Facility Visits [facility] | [facility] 1 Total 1 Note: Visits indicate total known visits. Recent | | Emergency Department Visit SummaryDate [facility] State Type Diagnoses or Chief | | Complaint Oct 01, 2018 [facility] [place] Emergency | | 10,800. Diarrhea Recent Inpatient Visit SummaryNo recorded inpatient visits. Care | | ProvidersThere are no care providers on record at this time. eTapestry PortalThis | | patient has registered at the [facility] Emergency Department | | For more information visit: | | [email or web address] The above | | information is provided for the sole purpose of patient treatment. Use of this | | information beyond the terms of Data Sharing Memorandum of Understanding and License | | Agreement is prohibited. In certain cases not all visits may be represented. Consult the | | aforementioned facilities for additional information. 2019 [employer] | | [facility]. - [place], [place] - [email or web address] | |Rx Summary | |Metric Count | |CS II-V Rx 0 | |CS-II Rx 0 | |Quantity Dispensed 320 | |Unique Prescribers 8 | |Unique Pharmacies 5 | |Benzos 0 | |Opioids 0 | |Long Acting Opioids 0 | | | | | | | |E.D. Visit Count (12 mo.) | |Facility Visits | |[facility] 1 | |Total 1 | |Note: Visits indicate total known visits. | | | |Recent Emergency Department Visit Summary | |Date Facility City State Type Diagnoses or Chief Complaint | |Oct 01, 2018 [facility] [place] Emergency | | 10,800. Diarrhea | | | | | | | |Recent Inpatient Visit Summary | |No recorded inpatient visits. | | | |Care Providers | |There are no care providers on record at this time. | |eTapestry Portal | |This patient has registered at the [facility] Emergency Departmen t | |For more information visit: [email or web address] | |The above information is provided for the sole purpose of patient treatment. Use of this in formation beyond the terms of Data Sharing Memorandum of Understanding and License Agreement is prohibited. In | |certain cases not all visits may be represented. Consult the aforementioned facilities for additional information. | |2019 [employer] - [place], [place] - [email or web address] | + + + + + + + | Performing | Address | City/State/Zipcode | Phone Number | | Organization | | | | + + + + + | [facility] | [address], | [place], [place] | [phone] | | TECHNOLOGIES | [address] | [address] | | + + + + + [...] potassium chloride SR (K-DUR) | Given | | 20 mEq | | | | tablet 20 mEq 20 mEq, oral, | | 9 21:12 | | | | | ONCE, 1 dose, 10/01/18 at 2130 | | PDT | | | | + +-------+ +--------+---+---+ +---+---+ | | | +---+---+ in this encounter
[~2018-11-11 18:33] MED LIST changes: +CREON DR 12,001 EACH PO; +ELIQUIS5 MG PO; +MORPHINE SULFAT10 M1 PO; +OMEPRAZOLE20 MG PO; +PERCOCET 5-3251 EACH PO
[2018-11-11] MEDS ORDERED: PERCOCET 5-3251 EACH PO (18:58)
[2018-11-11] MEDS ORDERED: PROCHLORPERAZIN10 MG PO (19:27)
[2018-11-11] MEDS ORDERED: ANTI-DIARRHEAL2 MG PO (19:28)
[2018-11-11] MEDS ORDERED: ATIVAN1 MG PO (19:28)
[2018-11-11] MEDS ORDERED: LEVAQUIN500 MG PO (22:36)
== END 2018-11-11 23:38 | disposition home or self-care (01) ==
LOC: ED 18:33
DX: N39.0 Urinary tract infection, site not specified (principal); C25.9 Malignant neoplasm of pancreas, unspecified; C78.7 Secondary malignant neoplasm of liver and intrahepatic bile duct; Z87.891 Personal history of nicotine dependence; Z79.899 Other long term (current) drug therapy
CPT/HCPCS: 36415; 71045; 80053; 81001; 83605; 85025; 87088; 96361; 96365; 96375; 96376; 99284-25; J0696; J1170; J2405; J7030